=== PATIENT | male | born 1945 | race Caucasian/White ===

== ENCOUNTER 2022-08-21 04:30 | Outpatient (OUT) | payer MEDICARE, SELFPAY ==
[2022-08-21 14:15] LABS: Prostate Specific Antigen Dx 1.43 ng/mL (<=4.00)
== END 2022-08-21 23:59 | disposition home or self-care (01) ==
LOC: LAB 08-31 12:31
PROVIDERS: PCP Internal Medicine; Visit Provider Urology
DX: N40.0 Benign prostatic hyperplasia without lower urinary tract symptoms (principal)
CPT/HCPCS: 36415; 84153

== ENCOUNTER 2022-09-15 07:08 | Outpatient (OUT) | payer MEDICARE, SELFPAY ==
--- NOTE | 2022-09-15 07:40 | MR_ITS ---
The [address] [address] Patient Name: YANELIS WANG MRN: [facility]:[id number] date: 1945 Sex: M Assigned Patient Location: MRI Current Patient Location: Accession/Order Number: [id number] Exam Date: 09/15/2022 07:40 Report Date: 09/18/2022 08:11 At the request of: SUSHMA BRANNON Procedure: MR angio head wo con EXAMINATION: MR angio head wo con HISTORY: History of Stroke Z86.73, Bilateral Blurred Vision H53.8 COMPARISON: No relevant comparison available. TECHNIQUE: A variety of imaging planes and parameters were utilized for visualization of suspected pathology. Images were performed without contrast. FINDINGS: CEREBRUM: 1.5 cm area of increased T2 signal within the watershed area of the right middle cerebral and posterior cerebral arteries which does not demonstrate increased signal on the diffusion sequence, which favors subacute to early remote infarction. A few small foci of increased T2 signal within the deep white matter favoring chronic small vessel ischemic changes. Mild, symmetric parenchymal atrophy consistent with age. No hemorrhage, mass, or mass effect. CEREBELLUM: 2 small areas likely representing encephalomalacic changes from remote infarctions within the posterior lateral left cerebellum. BRAINSTEM: No edema, hemorrhage, mass, acute infarction, or inappropriate atrophy. CSF SPACES: Ventricles, cisterns, and sulci are appropriate for age. No hydrocephalus, subarachnoid hemorrhage, or mass. SKULL: No mass or other significant visible lesion. SINUSES: Moderate mucosal thickening within the paranasal sinuses. No fluid levels. ORBITS: Limited views are unremarkable. INTERNAL CAROTIDS: No visible stenosis or aneurysm. ANTERIOR CEREBRALS: No visible stenosis or aneurysm. MIDDLE CEREBRALS: No visible stenosis or aneurysm. POSTERIOR CEREBRALS: No visible stenosis or aneurysm. BASILAR: No visible stenosis or aneurysm. Basilar artery is fed by the right vertebral artery. VERTEBRALS: Diminutive left vertebral artery which does not visibly connect to the basilar artery. OTHER: Negative with no evidence of a vascular malformation. MR/MR angio head wo con IMPRESSION: 1. Small area within posterior right watershed area between the middle and posterior cerebral arteries suspected to represent subacute ischemia. 2. Two small areas within left cerebellum suspected to represent encephalomalacic changes from remote infarctions. 3. Mild age consistent atrophy and chronic small vessel ischemic changes. 4. No appreciable abnormality of the anterior, middle, posterior circulation. Note is made that the basilar artery is fed entirely by the right vertebral artery. Electronically authenticated by: JAROD MAKI Date: 09/18/2022 08:11
== END 2022-09-15 07:09 | disposition home or self-care (01) ==
LOC: MRI 07:08
PROVIDERS: PCP Internal Medicine; Visit Provider Internal Medicine
DX: R51.9 Headache, unspecified (principal); H53.8 Other visual disturbances; Z86.73 Personal history of transient ischemic attack (TIA), and cerebral infarction without residual deficits
CPT/HCPCS: 70544

== ENCOUNTER 2022-09-28 13:04 | Outpatient (OUT) | payer MEDICARE, SELFPAY ==
--- NOTE | 2022-09-28 14:26 | CA_ITS ---
Patient: YANELIS WANG Exam Date: 09/28/2022 : 1945 Gender:M Ordering : DR Blu Humphrey D.O. Admission #: [id number] Family : Order #: [id number] CLICK HERE TO VIEW EXAM ECHOCARDIOGRAM REPORT PROCEDURE: CA ECHO DOPPLER COMPLETE INDICATIONS: CVA COMPARISON: None. DESCRIPTION: COMPLETE ECHOCARDIOGRAM Real-time transthoracic echocardiography with 2D, M-mode, spectral and color flow Doppler performed. QUALITY: Technical quality was good. BSA 1.93 LEFT VENTRICLE: Normal chamber size. Normal left ventricular wall thickness. Global left ventricular systolic function is normal. LV EF: Estimated left ventricular ejection fraction is 65% DIASTOLIC: Diastolic function is indeterminate. ATRIAL SEPTUM: Aneurysmal atrial septum. Doppler studies reveal an intra-cardiac shunt. Left to right shunt. LEFT ATRIUM: Normal chamber size. RIGHT ATRIUM: Mild dilatation. RIGHT VENTRICLE: Mild dilatation. Normal right ventricular systolic function. TRICUSPID VALVE: Normal mobility and thickness. No stenosis with mild regurgitation. Mild pulmonary hypertension. RVSP 39 mmHg MITRAL VALVE: Normal mobility and thickness. No evidence of mitral valve stenosis. Mild mitral annular calcification. Mild mitral regurgitation. AORTIC VALVE: Normal trileaflet appearance. Mildly calcified aortic valve. Normal leaflet mobility. No evidence of aortic valve stenosis. Trivial aortic regurgitation. AORTIC ROOT: Normal diameter and appearance. PULMONIC VALVE: Normal thickness and mobility. No stenosis. Trivial regurgitation. PERICARDIUM: No evidence of pericardial effusion. IVC: Collapses with inspirations. Normal size. PLEURA: CONCLUSION: 1. Normal left regular systolic function. LVEF is estimated at 65%. 2. Mildly dilated right ventricle with normal systolic function. 3. Mild right atrial dilatation. 4. Mild tricuspid regurgitation. 5. Mildly elevated right-sided pressures. RVSP is 39 mmHg. 6. Aneurysmal interatrial septum with evidence of [id number] shunting by color Doppler suggestive of possible atrial septal defect. A transesophageal echocardiogram is recommended for better assessment. Adult Echocardiography Procedure Report Left Ventricle LVEDD (3.7 - 5.6 cm): 4.36 cm LVESD (2.2 - 4.0 cm): 2.69 cm LVIVS thickness (0.6 - 1.2 cm): 1.02 cm LVPW thickness (0.5 - 1.0 cm): 0.92 cm e': 0.10 m/s E - e': 5.66 LVOT Max Gradient: 3.53 mm[Hg] LVOT Area (cm2): 0.94 m/s Peak Velocity (LVOT): 0.94 m/s Mean Velocity (LVOT): 0.59 m/s LVOT Diameter 2.20 cm Left Ventricular Ejection Fraction: 65% Left Atrium LA Volume Index (2D A2C): 35.51 ml/m2 Left Atrium Systolic Dimension: 3.72 cm Mitral Valve MV E to A Ratio: 0.70 Mitral Valve A-Wave Peak Velocity: 0.79 m/s Mitral Valve E-Wave Peak Velocity: 0.55 m/s Right Ventricle RV Internal Diastolic Dimension: 4.17 cm Aorta AO Root Diam: 3.66 cm Ascending Ao Diam: 3.13 cm Aortic Valve AoV Area (Peak Roberto): 1.90 cm2, 1.90 cm2 AoV Area (VTI): 1.80 cm2, 1.80 cm2 Peak Velocity(Antegrade Flow): 1.87 m/s Peak Gradient(Antegrade Flow): 14.01 mm[Hg] Mean Velocity(Antegrade Flow): 1.26 m/s Mean Gradient(Antegrade Flow): 7.36 mm[Hg] Velocity Time Integral: 48.49 cm Tricuspid Valve Peak Velocity (Regurgitant Flow): 2.54 m/s, 2.64 m/s, 3.00 m/s Pulmonic Valve Mean Gradient: 2.32 mm[Hg], 2.36 mm[Hg], 2.46 mm[Hg] Mean Velocity: 0.71 m/s, 0.72 m/s, 0.73 m/s Peak Velocity: 1.13 m/s Peak Gradient: 5.09 mm[Hg], 5.09 mm[Hg], 5.08 mm[Hg] Right Atrium Right Atrium Systolic Pressure: 74.92 ml, 74.92 ml Dictated by: Geovanny Iverson M.D. on 09/28/2022 at 17:21 Approved by: Geovanny Iverson M.D. on 09/28/2022 at 17:26
== END 2022-09-28 13:05 | disposition home or self-care (01) ==
LOC: CARD 13:04
PROVIDERS: PCP Internal Medicine; Visit Provider Internal Medicine
DX: I63.419 Cerebral infarction due to embolism of unspecified middle cerebral artery (principal); I07.1 Rheumatic tricuspid insufficiency
CPT/HCPCS: 93306

== ENCOUNTER 2022-11-01 10:29 | Outpatient (OUT) | payer MEDICARE, SELFPAY ==
--- NOTE | 2022-11-01 10:32 | US_ITS ---
[address] [address] Patient Name: YANELIS WANG MRN: [id number] date: 1945 Sex: M Assigned Patient Location: US Current Patient Location: US Accession/Order Number: [id number] Exam Date: 11/01/2022 10:40 Report Date: 11/01/2022 16:47 At the request of: SUSHMA BRANNON Procedure: US carotid duplex BI EXAMINATION: US carotid duplex BI HISTORY: Cerebral infarction I63.10 COMPARISON: No relevant comparison available. TECHNIQUE: Duplex Doppler ultrasound analysis of carotid and vertebral arteries. . Bilateral carotid arterial duplex examination was performed using B-mode, color flow and spectral analysis. Carotid stenosis is reported according to validated velocity parameters, similar to NASCET criteria. FINDINGS: RIGHT CAROTID ARTERY Moderate atherosclerotic plaque. 59% area reduction in the carotid bulb Subclavian: PSV: 132.5 cm/s cm/s EDV: 0.0 cm/s cm/s CCA: Prox: PSV: 83.1 cm/s cm/s EDV: 14.2 cm/s cm/s Mid: PSV: 67.3 cm/s cm/s EDV: 16.1 cm/s cm/s Distal: PSV: 73.2 cm/s cm/s EDV: 16.1 cm/s cm/s BULB: PSV: 57.5 cm/s cm/s EDV: 16.1 cm/s cm/s ICA: Prox: PSV: 90.9 cm/s cm/s EDV: 28.0 cm/s cm/s Mid: PSV: 110.6 cm/s cm/s EDV: 33.9 cm/s cm/s Distal: PSV: 81.1 cm/s cm/s EDV: 24.0 cm/s cm/s ECA: PSV: 108.6 cm/s cm/s EDV: 10.2 cm/s cm/s VERTEBRAL: PSV: 83.0 cm/s cm/s EDV: 22.0 cm/s cm/s, antegrade ICA/CCA ratio: PSV: 1.3 EDV: 2.4 LEFT CAROTID ARTERY moderate atherosclerotic plaque, 37% area reduction in the carotid bulb Subclavian: PSV: 134.4 cm/s cm/s EDV: 0.0 cm/s CCA: Prox: PSV: 128.7 cm/s cm/s EDV: 22.9 cm/s Mid: PSV: 100.8 cm/s cm/s EDV: 20.1 cm/s Distal: PSV: 89.1 cm/s cm/s EDV: 18.1 cm/s BULB: PSV: 81.2 cm/s cm/s EDV: 26.0 cm/s ICA: Prox: PSV: 93.0 cm/s cm/s EDV: 20.1 cm/s Mid: PSV: 83.1 cm/s cm/s EDV: 18.1 cm/s Distal: PSV: 53.6 cm/s cm/s EDV: 16.1 cm/s ECA: PSV: 92.9 cm/s cm/s EDV: 12.2 cm/s VERTEBRAL: PSV: 28.1 cm/s cm/s EDV: 6.3 cm/s , antegrade ICA/CCA ratio: PSV: 0.7 EDV: 0.9 US/US carotid duplex BI IMPRESSION: 0-49% flow stenosis bilateral internal carotid arteries Spectral Doppler US Thresholds (Reference: Herminio EG, et al. Radiology 2000; 214:247-252) Stenosis (%) PSV (cm/sec) VICA/VCCA 0-49 <150 <2.5 50-69 150-225 2.5-4.0 >70 >225 >4.0 Electronically authenticated by: ALTON AGUILAR Date: 11/01/2022 16:47
== END 2022-11-01 10:30 | disposition home or self-care (01) ==
LOC: US 10:29
PROVIDERS: PCP Internal Medicine; Visit Provider Internal Medicine
DX: I63.10 Cerebral infarction due to embolism of unspecified precerebral artery (principal)
CPT/HCPCS: 93880

== ENCOUNTER 2023-01-30 14:57 | Outpatient (OUT) | payer MEDICARE, SELFPAY ==
[2023-01-30 15:30] LABS: Basophils Absolute Auto 0.1 10^3/uL (0.0-0.1); Basophils Percent Auto 0.9 % (0.2-2.0); Eosinophils Absolute Auto 0.5 10^3/uL (0.0-0.7); Eosinophils Percent Auto 10.1 % (0.9-7.0); Hematocrit 39.2 % (42.0-54.0); Hemoglobin 13.4 g/dL (14.0-18.0); Immature Granulocytes Abs Auto 0.01 10^3/uL (0.00-0.03); Immature Granulocytes Pct Auto 0.2 % (0.0-0.5); Lymphocytes Absolute Auto 1.7 10^3/uL (1.2-3.8); Lymphocytes Percent Auto 31.7 % (20.5-60.0); Mean Corpuscular HGB Conc 34.2 g/dL (29.9-35.2); Mean Corpuscular Hemoglobin 32.6 pg (25.9-34.0); Mean Corpuscular Volume 95.4 fL (80.0-94.0); Mean Platelet Volume 10.6 fL (9.5-13.5); Monocytes Absolute Auto 0.5 10^3/uL (0.3-0.8); Monocytes Percent Auto 8.5 % (1.7-12.0); Neutrophils Absolute Auto 2.6 10^3/uL (1.4-6.5); Neutrophils Percent Auto 48.6 % (43.0-75.0); Platelet Count 129 10^3/uL (150-450); Red Blood Count 4.11 10^6/uL (4.70-6.10); Red Cell Distribution Width 12.3 % (11.0-15.0); White Blood Count 5.3 10^3/uL (4.0-11.0)
[2023-01-30 15:38] LABS: Alanine Aminotransferase 18 U/L (16-63); Anion Gap 10.8; Calcium 8.8 mg/dL (8.5-10.1); Carbon Dioxide 30.6 mmol/L (21.0-32.0); Chloride 105 mmol/L (98-107); Chol HDL Ratio 3.4; Cholesterol 178 mg/dL (<=200); Estimated GFR (African America >60 (>=60); Estimated GFR (Non-African Ame >60 (>=60); Glucose 151 mg/dL (74-106); HDL Cholesterol 53 mg/dL (40-60); Potassium 4.4 mmol/L (3.5-5.1); Sodium 142 mmol/L (136-145); Triglycerides 174 mg/dL (<=150); VLDL CHOLESTEROL 34.8 mg/dL
[2023-01-30 15:52] LABS: Prostate Specific Antigen Scrn 0.74 ng/mL (<=4.00)
== END 2023-01-30 14:58 | disposition home or self-care (01) ==
LOC: LAB 14:57
PROVIDERS: PCP Internal Medicine; Visit Provider Internal Medicine
DX: Z79.899 Other long term (current) drug therapy (principal); E78.00 Pure hypercholesterolemia, unspecified; I10 Essential (primary) hypertension; Z12.5 Encounter for screening for malignant neoplasm of prostate
CPT/HCPCS: 36415; 80048; 80061; 84460; 85025; G0103

== ENCOUNTER 2023-05-10 11:59 | Outpatient (OUT) | payer MEDICARE, SELFPAY ==
--- NOTE | 2023-05-10 12:10 | XR_ITS ---
The [address] [address] Patient Name: YANELIS WANG MRN: [id number] date: 1945 Sex: M Assigned Patient Location: LAB Current Patient Location: LAB Accession/Order Number: [id number] Exam Date: 05/10/2023 12:15 Report Date: 05/10/2023 13:07 At the request of: SUSHMA BRANNON Procedure: XR chest 2V EXAM: XR chest 2V HISTORY: cough R05.9 COMPARISON: None. TECHNIQUE: PA and lateral views of the chest. FINDINGS: The cardiomediastinal silhouette is normal. No focal consolidation is identified. There is no pneumothorax. No pleural effusion is noted. The osseous structures are intact. XR/XR chest 2V IMPRESSION: No acute cardiopulmonary process. Electronically authenticated by: RAMOS RITCHIE Date: 05/10/2023 13:07
[2023-05-10 12:23] LABS: Basophils Percent Auto 0.6 % (0.2-2.0); Eosinophils Absolute Auto 0.7 10^3/uL (0.0-0.7); Eosinophils Percent Auto 13.4 % (0.9-7.0); Hematocrit 38.4 % (42.0-54.0); Hemoglobin 12.7 g/dL (14.0-18.0); Immature Granulocytes Abs Auto 0.01 10^3/uL (0.00-0.03); Immature Granulocytes Pct Auto 0.2 % (0.0-0.5); Lymphocytes Absolute Auto 1.3 10^3/uL (1.2-3.8); Lymphocytes Percent Auto 24.3 % (20.5-60.0); Mean Corpuscular HGB Conc 33.1 g/dL (29.9-35.2); Mean Corpuscular Hemoglobin 32.2 pg (25.9-34.0); Mean Corpuscular Volume 97.5 fL (80.0-94.0); Mean Platelet Volume 10.6 fL (9.5-13.5); Monocytes Absolute Auto 0.7 10^3/uL (0.3-0.8); Monocytes Percent Auto 12.5 % (1.7-12.0); Neutrophils Absolute Auto 2.7 10^3/uL (1.4-6.5); Platelet Count 121 10^3/uL (150-450); Red Blood Count 3.94 10^6/uL (4.70-6.10); Red Cell Distribution Width 12.3 % (11.0-15.0); White Blood Count 5.4 10^3/uL (4.0-11.0)
== END 2023-05-10 12:00 | disposition home or self-care (01) ==
LOC: LAB 11:59
PROVIDERS: PCP Internal Medicine; Visit Provider Internal Medicine
DX: R05.9 Cough, unspecified (principal)
CPT/HCPCS: 36415; 71046; 85025

== ENCOUNTER 2024-02-09 07:32 | Outpatient (OUT) | payer MEDICARE, SELFPAY ==
--- OUTSIDE RECORDS SUMMARY | 2024-02-09 07:34 | XMS_ITS | CCD ---
Author Organization [facility] Care Team Providers Care Manager Garden Name Role Phone CURT CHOWDHURY Unavailable Unavailable BLU VELEZ Unavailable Unavailable Blu Velez DO Primary Care Provider BLU VELEZ Primary Care Unavailable ELISA FERRARO Referring Unavailable ARDEN MAHARAJ Attending Unavailable ARDEN MAHARAJ Admitting Unavailable MARIBEL HERNANDEZ Referring Unavailable BLU VELEZ Primary Care Unavailable ELISA FERRARO Consulting Unavailable ANIVAL TRUJILLO Consulting Unavailable ELISA FERRARO Admitting Unavailable BLU VELEZ Primary Care Unavailable THEO CABELLO Consulting Unavailable ELISA FERRARO Attending Unavailable UZAIR LAWSON Consulting Unavailable FAWWAD, ASHTON H Admitting Unavailable FAWTAMARA, ASHTON H Attending Unavailable BALL, DR ORDAZ Primary Care Unavailable FAWWAD, ASHTON H Admitting Unavailable FAWWAD, ASHTON H Attending Unavailable BALL, DR ORDAZ Primary Care Unavailable FAWWAToo, ASHTON H Admitting Unavailable FAWWAD, ASHTON H Attending Unavailable BALL, DR ORDAZ Primary Care Unavailable SEAN AVILA Admitting Unavailable SEAN AVILA Attending Unavailable LCOVIS, DR ORDAZ Primary Care Unavailable CL VARNER, DR JULIANA [place] Admitting Unavailabl e CL VARNER, DR JULIANA [place] Attending Unavailabl e CLOVIS, DR ORDAZ Primary Care Unavailable CL VARNER, DR JULIANA [place] Consulting Unavailabl e CLOVIS, DR ORDAZ Admitting Unavailable CLOVIS, DR ORDAZ Attending Unavailable CLOVIS, DR ORDAZ Primary Care Unavailable CLOVIS, DR ORDAZ Consulting Unavailable CLOVIS, DR ORDAZ Admitting Unavailable CLOVIS, DR ORDAZ Attending Unavailable CLOVIS, DR ORDAZ Primary Care Unavailable CLOVIS, DR ORDAZ Consulting Unavailable BLU VELEZ Primary Care Physician [phone] Clarisa Ibarra Attending Unavailable Clarisa Ibarra Attending Unavailable Blu Velez Unavailable Blu Velez Unavailable Unavailable Unavailable Teo Johnson Attending Unavailable Dr. Blu Velez Primary Care Angelia Velez, Dr. Blu Torres Referring Blu Cottrell DO Primary Care Provider Blu Velez DO Primary Care Provider U navailable TEO JOHNSON Attending Unavailable BLU VELEZ Primary Care Unavailable DO Blu Velez Primary Care Provider [phone] MD Yogesh Jacob II Attending Provider Yogesh Jacob II Admitting UnavailYogesh Reyes II Attending Unavailabl Blu Méndez Primary Care Unavailable BLU VELEZ Primary Care Unavailable TEO JOHNSON Referring Blu Camp MD Primary Care Provider ASHUTOSH MILLER Attending Unavailable ASHUTOSH MILLER Attending Unavailable ASHUTOSH MILLER Attending Unavailable ASHUTOSH MILLER Attending Unavailable ASHUTOSH MILLER Attending Unavailable Allergies Allergy Classification Reported Allergen(s) Allergy Type Date of Onset Reaction(s) Facility Sulfamethoxazole / Trimethoprim (3 sources) Sulfamethoxazole / Trimethoprim Drug Allergy 021 [facility] Unclassified (5 sources) Iodides; Translations: [IODIDES] Propensity to adverse reactions to drug 021 Hives, Itching [facility] (10 sources) Contrast media; Translations: [CONTRAST DYE] Propensity to adverse reactions to drug (disorder) 011 AOF, Unknown [facility] Repository (5 sources) sulfamethoxazole / trimethoprim; Translations: [SULFAMETHOXAZOLE-T RIMETHOPRIM] Drug Allergy 016 AOF, Rash [facility] Repository (1 source) Iodine (And Iodine Containting Drugs) Drug allergy (disorder) 014 [facility] Repository (1 source) Sulfamethoxazole / Trimethoprim Drug Allergy 015 [facility] Rep[facility] (10 sources) Sulfamethoxazole / Trimethoprim Drug Allergy 015 Unknown [facility] (20 sources) Iodine; Translations: [iodine] Drug Allergy 024 Unknown (qualifier value), Unknown [facility] (2 sources) Sulfonamides (Antibiotic); Translations: [sulfa drugs] Drug allergy Unknown (qualifier value) [facility] (11 sources) Sulfamethoxazole / Trimethoprim; Translations: [Bactrim] Drug Allergy Unknown, Rash [facility] Other (16 sources) Simvastatin Drug Allergy 024 Unknown, Unknown Reaction [facility] (8 sources) Allergies Reconciled Propensity to adverse reactions Unknown [facility] Other (10 sources) Iodinated contrast media (substance) Drug allergy 011 Hives, Itching [facility] (10 sources) Substance with sulfonamide structure and antibacterial mechanism of action (substance) Drug allergy 024 Hives, Unknown [facility] Other (8 sources) Septra *ANTI-INFECTIVE AGENTS - MISC.* Propensity to adverse reactions Unknown [facility] Other (8 sources) Sulf-10 Drug allergy 014 Unknown [facility] Other (8 sources) patient allergy list reviewed by nurse or physicia Propensity to adverse reactions 014 Comment:Done [facility] Other (2 sources) Contrast media Allergy to substance (finding) Rash [facility] 250 DO Work Phone: (9 sources) Sulfamethoxazole; Translations: [SULFAMETHOXAZOLE] Drug Allergy 024 Unknown Reaction [facility] Repository (11 sources) IODINATED CONTRAST MEDIA; Translations: [IODINATED CONTRAST MEDIA] Propensity to adverse reactions to drug (disorder) 011 Unknown Reaction [facility] 3 Repository (9 sources) Sulfonamides (Antibiotic); Translations: [Sulfa (Sulfonamide Antibiotics)] Allergy to substance 024 Unknown Reaction [facility] (9 sources) Trimethoprim; Translations: [trimethoprim] Drug Allergy 024 Unknown Reaction [facility] (1 source) Iodine Drug Allergy 024 [facility] Rep[facility] (1 source) Simvastatin Drug Allergy 024 [facility] Repository Medications Current Medications Medication Drug Class(es) Dates Sig (Normalized) Sig (Original) Acetaminophen (3 sources) Start: 08-21-2020 acetaminophen (TYLENOL) tablet 650 mg Start: 08-09-2020 take 650 mg by mouth every six hours, then take 4000 mg by mouth every twenty-four hours 650 mg, Oral, EVERY 6 HOURS, First dose on Sun08/09/20 at 2200 Maximum dose of acetaminophen is 4000 mg from all sources in 24 hours. Post-op Start: 08-09-2020 End: 08-09-2020 acetaminophen (TYLENOL) tabl et 1,000 mg acetaminophen 325 mg / oxyCODONE hydrochloride 5 mg oral tablet (3 sources) Opioid Agonist Start: 08-22-2020 End: 08-29-2020 take 1 tablet by mouth every four hours as needed for pain oxyCODONE-acetaminophen (PERCOCET) 5-325 MG per tablet Indications: S/P total knee arthroplasty, right Take 1 tablet by mouth every 4 hours as needed for Pain for up to 7 days. 42 tablet 0 08/22/2020 08/22/2020 Discontinued Start: 08-21-2020 oxyCODONE-acet aminophen (PERCOCET) 5-325 MG per tablet 1 tablet acyclovir 0.05 mg/mg topical ointment (5 sources) Herpesvirus Nucleoside Analog DNA Polymerase Inhibitor, Herpes Simplex Virus Nucleoside Analog DNA Polymerase Inhibitor, Herpes Zoster Virus Nucleoside Analog DNA Polymerase Inhibitor Start: 08-10-2023 Acyclovir Active 1 APPLIC TOPICAL Six times daily 15 August 10, 2023 12:00am albuterol 0.83 mg/ml inhalation solution (20 sources) beta2-Adrenergic Agonist Start: 05-03-2023 take 2 puff(s) by mouth every six hours as needed for cough and wheezing Albuterol Sulfate Active 0 .ROUTE .COMPLEX 8.5 May 03, 2023 9:50am INHALE 2 PUFFS BY MOUTH EVERY 6 HOURS NEEDED FOR COUGH AND WHEEZING Start: 04-19-2023 End: 05-10-2023 take 2.5 mg by inhalation every six hours Albuterol Sulfate Discontinued 2.5 MG INHALATION Every 6 hours 75 30 April 19, 2023 3:32pm May 10, 2023 9:15am Start: 04-11-2023 End: 05-03-2023 take 1 puff(s) by inhalation every six hours Albuterol Sulfate Discontinued 2 PUFF INHALATION Every 6 hours 8.5 April 11, 2023 1:00am May 03, 2023 9:50am amLODIPine 5 mg oral tablet (20 sources) Dihydropyridine Calcium Channel Nuha Start: 02-09-2023 take 1 tablet by mouth once daily Amlodipine Active 1 TAB PO Daily April 11, 2023 1:00am FreeTextSi tablet Orally Once a day; Note: Source Status: Continue; Provider: Clovis Hylton Start: 2022 take 1 tablet by gina th every twenty-four hours amLODIPine Besylate 5 MG 1 tablet Orally Once a day for 90 days Feb, Active ascorbic acid 1000 mg oral tablet (7 sources) Vitamin C take 1 tablet by gina th in the morning Ascorbic Acid (vitamin C) 1000 MG tablet Take 1,000 mg by mouth in the morning. Active Vitamin C ER 100 0 MG TBCR TAKE 1 TABLET DAILY. Quantity: 0 Refills: 0 Ordered: 09-Nov-2022 DO Active aspirin 81 mg delayed release oral tablet (11 sources) Platelet Aggregation Inhibitor, Nonsteroidal Anti-inflammatory Drug Start: 04-11-2023 take 81 mg by mouth once daily Aspirin Active 81 MG PO Daily April 11, 2023 1:00am atorvastatin 10 mg oral tablet (20 sources) HMG-CoA Reductase Inhibitor Start: 11-02-2023 take 10 mg by mouth once daily in the evening Atorvastatin Active 10 MG PO Every evening 90 November 02, 2023 4:27pm Start: 08-04-2023 End: 11-02-2023 Atorvastatin Discontinued 0 .ROUTE .COMPLEX 90 August 04, 2023 12:52pm November 02, 2023 4:28pm TAKE 1 TABLET EVERY EVENING Start: 04-11-2023 End: 08-04-2023 take 10 mg by mouth once daily Atorvastatin Discontinu ed 10 MG PO Daily April 11, 2023 1:00am August 04, 2023 12:52pm Start: 10-24-2018 atorvastatin O ral, Daily, Refills(s) 0 Start Date: 10/24/18 Status: Ordered benazepril hydrochloride 20 mg oral tablet (20 sources) Angiotensin Converting Enzyme Inhibitor Start: 04-11-2023 take 1 tablet by mouth once daily Benazepril Active 1 TAB PO Daily April 11, 2023 1:00am FreeTextSi tablet Orally Once a day; Note: Source Status: Continue; Provider: Clovis Hylton Start: 10-24-2018 benazepril Ora l, Daily, Refills(s) 0 Start Date: 10/24/18 Status: Ordered docusate sodium 100 mg oral capsule (1 source) Start: 08-10-2020 docusate sodiu m (COLACE) capsule 100 mg doxycycline hyclate 100 mg oral capsule (9 sources) Tetracycline- class Drug Start: 11-20-2023 take 100 mg by mouth twice daily Doxycycline Hyclate Active 100 MG PO Twice daily 08 09November 20, 2023 12:00am Start: 04-11-2023 End: 04-19-2023 take 100 mg by mouth twice daily Doxycycline Hyclate Discontinued 100 MG PO Twice daily April 11, 2023 1:00am April 19, 2023 11:14am 0.8 ml enoxaparin sodium 100 mg/ml prefilled syringe (3 sources) Low Molecular Weight Heparin Start: 08-10-2020 End: 08-17-2020 enoxaparin (LOVENOX) 80 MG/0.8ML injection Inject 0.8 mLs into the skin 2 times daily for 7 days 11.2 mL 0 08/10/2020 08/17/2020 Active Start: 08-10-2020 End: 08-10-2020 enoxaparin (LOVENOX) injecti on 40 mg End: 08-09-2020 enoxaparin (LOVENOX) 80 MG/0 .8ML injection Inject 80 mg into the skin 2 times daily 0 08/09/2020 Discontinued (Stop Taking at Discharge) fluocinonide 0.5 mg/ml topical cream (3 sources) Corticosteroid fluocinonide (LI DEX) 0.05 % cream Apply topically as needed (for occasional rash on lower legs) Uses very rarely 0 Active Fluticasone Propion-Salmeterol (11 sources) Corticosteroid, beta2-Adrenergic Agonist Start: 07-17-2023 Fluticasone Propion-Salmeterol (Wixela Inhub) 250-50 mcg/dose blister with device Active 1 INH INHALATION Twice daily July 17, 2023 12:00am Start: 05-10-2023 End: 07-17-2023 take 1 puff(s) by inhalation every twelve hours Fluticasone Propion-Salmeterol (Advair Hfa) 45-21 mcg/actuation HFA aerosol inhaler Discontinued 2 PUFF INHALATION Every 12 hours 02 24May 10, 2023 12:00am July 17, 2023 11:10am administer with spacer Start: 05-10-2023 take 1 puff(s) by in halation every twelve hours Fluticasone Propion-Salmeterol (Advair Hfa) 45-21 mcg/actuation HFA aerosol inhaler Active 2 PUFF INHALATION Every 12 hours 02 24May 10, 2023 12:00am administer with spacer hydroCHLOROthiazide 12.5 mg oral tablet (20 sources) Thiazide Diuretic Start: 08-30-2022 take 1 mg by mouth once daily hydrochlorothiazide 12.5 mg Cap mg cap(s), Oral, Daily Start Date: 08/30/22 Status: Ordered Start: 03-01-2022 take 1 tablet by gina th once daily in the morning Hydrochlorothiazide Active 1 TAB PO Daily April 11, 2023 1:00am FreeTextSi tablet in the morning Orally Once a day; Note: Source Status: Continue; Provider: Clovis Hylton HYDROmorphone (DILAUDID) injection 0.25 mg (1 source) Start: 08-21-2020 HYDROmorphone (DILAUDID) injection 0.25 mg 100 ml magnesium sulfate 10 mg/ml injection (1 source) Start: 08-21-2020 magnesium sulf ate 1000 mg in dextrose 5% 100 mL IVPB morphine (PF) injection 2 mg (1 source) Start: 08-09-2020 morphine (PF) injection 2 mg ondansetron (ZOFRAN-ODT) disintegrating tablet 4 mg (1 source) Start: 08-21-2020 ondansetron (Z OFRAN-ODT) disintegrating tablet 4 mg oxyCODONE (1 source) Opioid Agonist Start: 08-09-2020 oxyCODONE (NELSON ICODONE) immediate release tablet 5 mg polyethylene glycol 3350 07535 mg powder for oral solution (1 source) Osmotic Laxative Start: 08-21-2020 polyethylene glycol (GLYCOLAX) packet 17 g Potassium Chloride (1 source) Start: 08-21-2020 potassium chlo ride (KLOR-CON M) extended release tablet 40 mEq Promethazine (1 source) Phenothiazine Start: 08-09-2020 promethazine ( PHENERGAN) tablet 12.5 mg triamcinolone acetonide 5 mg/ml topical cream (11 sources) Corticosteroid Start: 11-20-2023 Triamcinolone Acetonide Active 1 APPLIC TOPICAL Twice daily November 20, 2023 12:00am Start: 2017 Kenalog -40 mg 16 Dec, 2016 40 mg warfarin sodium 2 mg oral tablet (5 sources) Vitamin K Antagonist Start: 08-09-2020 End: 08-22-2020 warfarin (COUMADIN) tablet 2 mg End: 08-22-2020 take 2 tablets by mouth three times weekly warfarin (COUMADIN) 2 MG tablet Take 4 mg by mouth three times a week Takes 4 mg (2 tablets) on Sunday, Sunday & Sunday 0 08/22/2020 Discontinued (Stop Taking at Discharge) warfarin (COUMADIN) daily do sing (placeholder) (1 source) Start: 08-09-2020 warfarin (COUM JASWINDER) daily dosing (placeholder) Completed/Discontinued Medications Medication Drug Class(es) Dates Sig (Normalized) Sig (Original) apixaban 2.5 mg oral tablet (20 sources) Factor Xa Inhibitor Start: 04-11-2023 End: 11-20-2023 take 1 mg by mouth twice daily Apixaban Discontinued MG PO Twice daily April 11, 2023 1:00am November 20, 2023 1:51pm FreeTextSig: as directed Orally Twice a day; Note: Source Status: Continue; Provider: Clovis Hylton Start: 12-02-2020 take 1 tablet by gina th twice daily Apixaban (Eliquis) 2.5 mg tablet Active 2.5 MG PO Twice daily September 12, 2023 12:00am Start: 08-22-2020 End: 09-21-2020 take 1 tablet by mouth twice daily apixaban (ELIQUIS) 5 MG TABS tablet Take 1 tablet by mouth 2 times daily 60 tablet 0 08/22/2020 08/22/2020 Discontinued (REORDER) azithromycin 250 mg oral tablet (6 sources) Macrolide Antimicrobial Start: 05-10-2023 End: 11-20-2023 Azithromycin Discontinued 250 MG PO As Directed 6 May 10, 2023 12:00am November 20, 2023 1:51pm Rap-Oad-Mnya 333-133-5 MG TABS (2 sources) Qwl-Jbh-[id number] 333-133-5 MG TABS TAKE 1 TABLET DAILY. Quantity: 0 Refills: 0 Ordered: 09-Nov-2022 DO Active calcium chloride 0.0014 meq/ml / potassium chloride 0.004 meq/ml / sodium chloride 0.103 meq/ml / sodium lactate 0.028 meq/ml injectable solution (2 sources) Start: 08-09-2020 End: 08-10-2020 Intravenous, at 125 mL/hr, CONTINUOUS, Starting on Sun08/09/20 at 2130, Post-op Start: 08-09-2020 lactated ringe rs infusion cholecalciferol 0.025 mg ora l capsule (2 sources) Vitamin D Vitamin D-3 25 M CG (1000 UT) Oral Capsule TAKE DIRECTED. Quantity: 0 Refills: 0 Ordered: 09-Nov-2022 DO Active 2 ml fentaNYL 0.05 mg/ml injection (2 sources) Opioid Agonist Start: 08-09-2020 End: 08-09-2020 fentaNYL (SUBLIMAZE) injection 50 mcg Start: 08-09-2020 End: 08-09-2020 fentaNYL (SUBLIMAZE) injecti on 25 mcg gabapentin 300 mg oral capsule (1 source) Anti-epileptic Agent Start: 08-09-2020 End: 08-09-2020 gabapentin (NEURONTIN) capsule 300 mg levoFLOXacin 750 mg oral tablet (6 sources) Quinolone Antimicrobial Start: 04-19-2023 End: 05-10-2023 take 750 mg by mouth once daily Levofloxacin Discontinued 750 MG PO Daily 5 April 19, 2023 1:00am May 10, 2023 8:37am mineral oil 0.15 mg/mg / petrolatum 0.83 mg/mg ophthalmic ointment (1 source) Start: 08-09-2020 End: 08-10-2020 lubrifresh P.M. (artificial tears) ophthalmic ointment predniSONE 20 mg oral tablet (17 sources) Start: 05-10-2023 End: 05-10-2023 Prednisone Discontinued 20 MG PO Twice daily 11 30May 10, 2023 12:00am May 10, 2023 12:39pm 1 tab tid w/ food x 3 days, then bid w/ food x 3 days, then qd w/ food x 3 days Start: 04-19-2023 End: 11-20-2023 take 20 mg by mouth twice daily Prednisone Discontinued 20 MG PO Twice daily 11 30May 10, 2023 12:38pm November 20, 2023 1:52pm 1000 ml sodium chloride 9 mg /ml injection (7 sources) Start: 08-21-2020 sodium chlorid e flush 0.9 % injection 5-40 mL Start: 08-21-2020 End: 08-21-2020 0.9 % sodium chloride infusi on Start: 08-09-2020 take 1 dose intraven ously twice daily 5-40 mL, Intravenous, EVERY 12 HOURS SCHEDULED (2 times per day), First dose on Sun08/09/20 at 2130 For Line Patency: Peripheral IV = 5 mL; Midline or Central Line = 10 mL/lumen. If following IV push medication, administer flush at same rate as the IV push. Flush volume is determined by type of infusion therapy being given. For non-viscous solutions use: Peripheral IV = 5 mL Midline or Central Line = 10 mL/lumen For viscous solutions (i.e. blood components, parenteral nutrition, contrast media, or after obtaining blood sample) use: Peripheral IV = 10 mL Midline or Central Line = 20 mL/lumen Post-op Start: 08-09-2020 take 25 mL intraveno usly every hour as needed 25 mL, Intravenous, at 100 mL/hr, PRN, If patient receiving piggyback infusions without ordered maintenance IV fluids or with frequent/long duration piggyback infusions, Starting on Sun08/09/20 at 2106 Administer at the same rate as the piggyback being infused. Post-op Start: 08-09-2020 take 5-40 mL intravenously onc e 5-40 mL, Intravenous, PRN, Line Care, Starting on Sun08/09/20 at 2106 After every IV line use Post-op traMADol hydrochloride 50 mg oral tablet (11 sources) Opioid Agonist Start: 03-30-2016 take 1 tablet by mouth every six hours traMADol HCl 50 MG 1 tablet as needed Orally every 6 hrs for 30 days Mar, Not-Taking End: 08-09-2020 take 1 tablet by mouth every twelve hours as needed for pain traMADol (ULTRAM) 50 MG tablet Take 50 mg by mouth every 12 hours as needed for Pain. 0 08/09/2020 Discontinued (Stop Taking at Discharge) vitamin b12 1 mg oral tablet (2 sources) Vitamin B12 take 1 tablet by mouth once daily Vitamin B-12 1000 MCG Oral Tablet TAKE 1 TABLET DAILY DIRECTED. 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] Onset: 3 Chronic Acute posthemorrhagic anemia (2 sources) Anemia following acute postoperative blood loss; Translations: [Acute posthemorrhagic anemia] Onset: 1 Episodic Allergic reactions (8 sources) Inflammatory dermatosis; Translations: [Dermatitis, unspecified] Episodic Asthma (20 sources) Mild intermittent asthma; Translations: [Mild intermittent asthma, uncomplicated] Onset: 8 Chronic Asthma (1 source) Asthma; Translations: [Asthma, unspecified, unspecified status] Onset: 8 Blindness and vision defects (3 sources) Other visual disturbances Episodic Cardiac and circulatory congenital anomalies (20 sources) Patent foramen ovale; Translations: [Atrial septal defect] Onset: 1 Chronic Chronic obstructive pulmonary disease and bronchiectasis (20 sources) Mucopurulent chronic bronchitis; Translations: [Mucopurulent chronic bronchitis] Onset: 8 Resolved: 0 04-11-2023 Chronic Coagulation and hemorrhagic disorders (2 sources) Hypercoagulability state; 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 Complication of device; implant or graft (8 sources) Pain due to knee joint prosthesis; Translations: [Pain due to internal orthopedic prosthetic devices, implants and grafts, initial encounter] Onset: 4 09-12-2023 Episodic Disorders of lipid metabolism (20 sources) Familial hypercholesterolemia; Translations: [Hypercholesterolemia] Onset: 4 Chronic E Codes: Adverse effects of medical drugs (8 sources) Adverse effect of other viral vaccines, initial encounter; Translations: [Adverse effect of other viral vaccines, initial encounter] Episodic Esophageal disorders (2 sources) Gastro-esophageal reflux disease with esophagitis; Translations: [Gastro-esophageal reflux disease with esophagitis, without bleeding] Chronic Esophageal disorders (6 sources) Esophageal disorders; Translations: [Gastro-esophageal reflux disease with esophagitis, without bleeding] Essential hypertension (20 sources) Essential hypertension; Translations: [Essential (primary) hypertension] Onset: 4 Chronic Hyperplasia of prostate (20 sources) Benign prostatic hyperplasia without lower urinary tract symptoms; Translations: [Benign prostatic hypertrophy without outflow obstruction] Onset: 4 Chronic Immunizations and screening for infectious disease (16 sources) Contact with and (suspected) exposure to other viral communicable diseases; Translations: [Vaccination given] Episodic Mycoses (2 sources) Pain in toe; Translations: [Tinea unguium] 12-10-2023 Episodic Occlusion or stenosis of precerebral arteries (8 sources) Carotid artery occlusion; Translations: [Occlusion and stenosis of unspecified carotid artery] Onset: 8 Chronic Osteoarthritis (20 sources) Osteoarthritis of right knee joint; Translations: [Unilateral primary osteoarthritis, right knee] Onset: 1 Resolved: 1 Chronic Other aftercare (9 sources) Patient encounter status; Translations: [Aftercare following joint replacement surgery] Chronic Other aftercare (11 sources) Long-term current use of anticoagulant; Translations: [intermission coordinator (current) use of anticoagulants] Onset: 1 Episodic Other aftercare (4 sources) Other snf (current) drug therapy; Translations: [OTH BRAKE MECHANIC CURRENT DRUG THERAPY] Onset: 2 Episodic Other aftercare (8 sources) Long-term current use of drug therapy; Translations: [Other long term care administrator (current) drug therapy] Episodic Other and ill-defined cerebrovascular disease (16 sources) Cerebral atherosclerosis; Translations: [Cerebral atherosclerosis] 04-11-2023 Chronic Other and ill-defined cerebrovascular disease (7 sources) Cerebral atherosclerosis; Translations: [Cerebral atherosclerosis] Chronic Other and unspecified benign neoplasm (7 sources) Polyp of colon; Translations: [Polyp of colon] Episodic Other and unspecified benign neoplasm (1 source) Polyp of colon; Translations: [Polyp of colon] Episodic Other circulatory disease (16 sources) History of cerebrovascular disease; Translations: [Personal history of transient ischemic attack (TIA), and cerebral infarction without residual deficits] 04-11-2023 Episodic Other circulatory disease (7 sources) Personal history of transient ischemic attack (TIA), and cerebral infarction without residual deficits; Translations: [Personal history of transient ischemic attack (TIA), and cerebral infarction without residual deficits] Episodic Other circulatory disease (13 sources) History of cerebrovascular accident without residual deficits; Translations: [Personal history of transient ischemic attack [TIA], and cerebral infarction without residual deficits] Onset: 8 Episodic Other circulatory disease (8 sources) Cardiovascular symptoms; Translations: [Other specified symptoms and signs involving the circulatory and respiratory systems] Episodic Other circulatory disease (2 sources) History of cerebrovascular accident; Translations: [Personal history of transient ischemic attack (TIA), and cerebral infarction without residual deficits] Episodic Other connective tissue disease (4 sources) History of total knee arthroplasty; Translations: [Presence of right artificial knee joint] Onset: 1 Chronic Other connective tissue disease (8 sources) Artificial knee joint present; Translations: [Presence of right artificial knee joint] Chronic Other connective tissue disease (4 sources) Presence of left artificial knee joint; Translations: [Knee joint replacement] Onset: 4 09-12-2023 Chronic Other connective tissue disease (1 source) Pain in left toe(s); Translations: [Pain in limb] 11-20-2023 Episodic Other ear and sense organ disorders (7 sources) Sensorineural hearing loss, bilateral; Translations: [Sensorineural hearing loss, bilateral] Chronic Other ear and sense organ disorders (1 source) Sensorineural hearing loss, bilateral; Translations: [Sensorineural hearing loss, bilateral] Chronic Other ear and sense organ disorders (7 sources) Bilateral tinnitus; Translations: [Tinnitus, bilateral] Episodic Other ear and sense organ disorders (1 source) Tinnitus, bilateral; Translations: [Tinnitus, bilateral] Episodic Other injuries and conditions due to external causes (7 sources) History of fall; Translations: [History of falling] Episodic Other injuries and conditions due to external causes (1 source) History of falling; Translations: [History of falling] Episodic Other lower respiratory disease (11 sources) Cough; Translations: [Cough, unspecified] Onset: 8 05-10-2023 Episodic Other nervous system disorders (7 sources) Facial nerve disorder; Translations: [Other disorders of facial nerve] Episodic Other nervous system disorders (1 source) Other disorders of facial nerve; Translations: [Other disorders of facial nerve] Episodic Other non-traumatic joint disorders (8 sources) Lower limb joint arthritis; Translations: [Osteoarthrosis, unspecified whether generalized or localized, lower leg] Onset: 5 Chronic Other non-traumatic joint disorders (2 sources) Hemarthrosis of right knee; Translations: [Hemarthrosis, right knee] Onset: 1 Episodic Other nutritional; endocrine; and metabolic disorders (8 sources) Overweight; Translations: [Overweight] Episodic Other nutritional; endocrine; and metabolic disorders (2 sources) Overweight in adulthood with body mass index of 25 or more but less than 30; Translations: [Overweight] Episodic Other upper respiratory disease (8 sources) Seasonal allergic rhinitis; Translations: [Other seasonal allergic rhinitis] Onset: 8 Chronic Other upper respiratory disease (7 sources) Dysphonia; Translations: [Dysphonia] Episodic Other upper respiratory disease (1 source) Dysphonia; Translations: [Dysphonia] Episodic Other upper respiratory infections (20 sources) Acute pharyngitis; Translations: [Acute pharyngitis due to other specified organisms] Onset: 4 Episodic Otitis media and related conditions (20 sources) Acute secretory otitis media; Translations: [Other acute nonsuppurative otitis media, right ear] Onset: 6 Resolved: 2 Episodic Phlebitis; thrombophlebitis and thromboembolism (8 sources) Chronic deep venous thrombosis of thigh; Translations: [Chronic venous embolism and thrombosis of deep vessels of proximal lower extremity] Onset: 4 Chronic Phlebitis; thrombophlebitis and thromboembolism (20 sources) H/O: Deep vein thrombosis; Translations: [Personal history of other venous thrombosis and embolism] Onset: 4 Episodic Retinal detachments; defects; vascular occlusion; and retinopathy (8 sources) Hypertensive retinopathy; Translations: [Hypertensive retinopathy, unspecified eye] Onset: 2 Chronic Screening and history of mental health and substance abuse codes (19 sources) Ex-smoker; Translations: [History of tobacco use] Onset: 7 11-27-2019 Episodic Comment on above: quit 1965; Skin and subcutaneous tissue infections (2 sources) Paronychia; Translations: [Paronychia] 11-20-2023 Episodic Spondylosis; intervertebral disc disorders; other back problems (20 sources) Lumbosacral spondylosis without myelopathy; Translations: [Lumbosacral spondylosis without myelopathy] Onset: 5 Chronic Substance-related disorders (8 sources) Tobacco user; Translations: [Nicotine dependence, cigarettes, in remission] Chronic Unclassified (3 sources) CONTACT W/AND (SUSP) EXPOS COVID-19; Translations: [CONTACT W/AND (SUSP) EXPOS COVID-19] Onset: 2 Unclassified (1 source) Asymptomatic microscopic hematuria 11-27-2019 Unclassified (1 source) Drug therapy finding 10-23-2018 Unclassified (6 sources) Other specified cough; Translations: [Other specified cough] Onset: 8 Unclassified (1 source) Pain in joint, lower leg; Translations: [Pain in joint, lower leg] Onset: 5 Unclassified (1 source) Obstructive chronic bronchitis with acute bronchitis; Translations: [Obstructive chronic bronchitis with acute bronchitis] Onset: 8 Unclassified (1 source) Hypertrophy (benign) of prostate without urinary obstruction and other lower urinary tract symptoms [LUTS]; Translations: [Hypertrophy (benign) of prostate without urinary obstruction and other lower urinary tract symptoms [LUTS]] Onset: 8 Unclassified (1 source) Personal history of tobacco use, presenting hazards to health; Translations: [Personal history of tobacco use, presenting hazards to health] Onset: 7 Past or Other Problems Problem Classification Problem Date Documented Date Episodic/Chronic Bacterial infection; unspecified site (8 sources) Bacterial infectious disease; Translations: [Bacterial infection, unspecified, in conditions classified elsewhere and of unspecified site] Onset: 05-28-2017 Episodic Headache; including migraine (3 sources) Headache; including migraine Malaise and fatigue (8 sources) Malaise and fatigue; Translations: [Other malaise and fatigue] Onset: 09-23-2013 Episodic Neoplasms of unspecified nature or uncertain behavior (8 sources) Neoplasm of uncertain behavior of skin; Translations: [Neoplasm of uncertain behavior of skin] Onset: 06-01-2015 Episodic Other aftercare (5 sources) Encounter for therapeutic drug level monitoring; Translations: [ENC THERAPEUTC DRUG LEVL MONITORING] Onset: 01-23-2017 Episodic Other aftercare (1 source) intermission coordinator (current) use of anticoagulants; Translations: [FPC CURRNT USE ANTICOAGULANTS] Onset: 06-27-2021 Episodic Other aftercare (7 sources) Therapeutic drug level - finding; Translations: [Encounter for therapeutic drug level monitoring] Onset: 01-23-2017 Episodic Other connective tissue disease (7 sources) Cramp in limb; Translations: [Cramp of limb] Onset: 01-23-2017 Episodic Other connective tissue disease (7 sources) Plantar fascial fibromatosis; Translations: [Plantar fascial fibromatosis] Onset: 08-06-2013 Episodic Other connective tissue disease (1 source) Cramp of limb; Translations: [Cramp of limb] Onset: 01-23-2017 Episodic Other connective tissue disease (1 source) Plantar fascial fibromatosis; Translations: [Plantar fascial fibromatosis] Onset: 08-06-2013 Episodic Other hematologic conditions (8 sources) Secondary polycythemia; Translations: [Secondary polycythemia] Onset: 01-16-2016 Episodic Other lower respiratory disease (7 sources) Dyspnea; Translations: [Other forms of dyspnea] Onset: 05-08-2017 Episodic Other lower respiratory disease (1 source) Other forms of dyspnea; Translations: [Other forms of dyspnea] Onset: 05-08-2017 Episodic Other non-traumatic joint disorders (7 sources) Arthralgia of the lower leg; Translations: [Pain in joint, lower leg] Onset: 12-10-2014 Episodic Other nutritional; endocrine; and metabolic disorders (16 sources) Body mass index 25-29 - overweight; Translations: [Body mass index 28.0-28.9, adult] Onset: 01-23-2017 Episodic Other screening for suspected conditions (not mental disorders or infectious disease) (18 sources) Raised prostate specific antigen; Translations: [Elevated prostate specific antigen (PSA)] Onset: 09-23-2013 10-23-2018 Episodic Residual codes; unclassified (8 sources) Requires influenza virus vaccination; Translations: [Need for prophylactic vaccination and inoculation, Influenza] Onset: 11-13-2017 Episodic Residual codes; unclassified (7 sources) Family history of malignant neoplasm of gastrointestinal tract; Translations: [Family history of malignant neoplasm of digestive organs] Onset: 09-23-2013 Episodic Residual codes; unclassified (1 source) Family history of malignant neoplasm of digestive organs; Translations: [Family history of malignant neoplasm of digestive organs] Onset: 09-23-2013 Episodic Spondylosis; intervertebral disc disorders; other back problems (20 sources) Thoracic and lumbosacral neuritis; Translations: [Thoracic or lumbosacral neuritis or radiculitis, unspecified] Onset: 07-22-2014 Resolved: 08-15-2021 Episodic Transient cerebral ischemia (2 sources) Transient cerebral ischemia; Translations: [Personal history of transient ischemic attack [TIA], and cerebral infarction without residual deficits] Onset: 11-13-2017 Unclassified (1 source) CONTACT W/AND (SUSP) EXPOS COVID-19; Translations: [CONTACT W/AND (SUSP) EXPOS COVID-19] Onset: 02-21-2022 Unclassified (8 sources) Long-term current use of drug therapy; Translations: [Long-term (current) use of other medications] Onset: 07-10-2016 Unclassified (8 sources) Chronic venous embolism and thrombosis of other specified veins; Translations: [Chronic venous embolism and thrombosis of other specified veins] Onset: 12-25-2013 Results Test Name Value Interpretation Reference Range Facility Automated basophil %Ordered By: Yogesh Jacob on 09-12-2023 Basophils/100 WBC (Bld) 0.8 % . [facility] Comment on above: Performed By: #### C RP, DDIMER, ESR, CBC #### [address] Automated basophil countOrde red By: Yogesh Jacob on 09-12-2023 Basophils (Bld) [#/Vol] 0.0 10*3/uL 0.0-0.2 [facility] Comment on above: Performed By: #### C RP, DDIMER, ESR, CBC #### [address] Automated blood monocyte cou ntOrdered By: Yogesh Jacob on 09-12-2023 Monocytes (Bld) [#/Vol] 0.7 10*3/uL 0.0-0.8 [facility] Comment on above: Performed By: #### C RP, DDIMER, ESR, CBC #### [address] Automated eosinophil %Ordere d By: Yogesh Jacob on 09-12-2023 Eosinophils/100 WBC (Bld) 5.8 % . [facility] Comment on above: Performed By: #### C RP, DDIMER, ESR, CBC #### [address] Automated eosinophil countOr dered By: Yogesh Jacob on 09-12-2023 Eosinophils (Bld) [#/Vol] 0.3 10*3/uL 0.0-0.45 [facility] Comment on above: Performed By: #### C RP, DDIMER, ESR, CBC #### [address] Automated monocyte %Ordered By: Yogesh Jacob on 09-12-2023 Monocytes/100 WBC (Bld) 12.2 % . [facility] Comment on above: Performed By: #### C RP, DDIMER, ESR, CBC #### [address] Automated neutrophil %Ordere d By: Yogesh Jacob on 09-12-2023 Neutrophils/100 WBC (Bld) 49.4 % . [facility] Comment on above: Performed By: #### C RP, DDIMER, ESR, CBC #### [address] C reactive protein [Mass/vol ume] in Serum or PlasmaOrdered By: Yogesh Jacob on 09-12-2023 CRP [Mass/Vol] < 0.5 mg/dL 0.0-0.5 [facility] C-Reactive Proteinon 024 CRP [Mass/Vol] mg/L Normal 0.0-0.5 [facility] Comment on above: Result Comment: PERF ORMED BY: [place] [address] PATHOLOGIST GAG WRITER DOLORES RICHARDS M.D. Performed By: #### C RP, DDIMER, ESR, CBC #### [address] Complete Blood Count Auto Di ffon 09-12-2023 Mean Corpuscular HGB Conc 35.1 g/dL Normal 32.5-35.6 [facility] Comment on above: Performed By: #### C RP, DDIMER, ESR, CBC #### [address] NRBC% 0.1 /100{WBC} Normal 0-0.5 [facility] Comment on above: Performed By: #### C RP, DDIMER, ESR, CBC #### [address] D-Dimer High Sensitivityon 0 09-12-2023 D-Dimer High Sensitivity 233 ng/mL Normal 0-243 [facility] Comment on above: Result Comment: The reference range for D-dimer is <243 ng/mL D-dimer units. D-dimer results must be used in conjunction with a clinical pretest probability (PTP) assessment model for deep vein thrombosis (DVT) and pulmonary embolism (PE). Results <230 ng/mL d-dimer units can be used as a negative predictor in patients with low or moderate probability for DVT/PE. Results above the exclusion threshold of 230 ng/ml D-dimer units for DVT/PE may indicate the need for further diagnostic testing. D-Dimer can be increased in hospitalized patients due to co-morbid conditions. A hematocrit value greater than 55% may lead to inaccurate results in coagulation testing. Patients having hematocrit values >55% require a special collection tube for coagulation studies. Please contact the laboratory at [phone] for redraw instructions. PERFORMED BY: [place] [address] PATHOLOGIST GAG WRITER DOLORES RIHCARDS M.D. Performed By: #### C RP, DDIMER, ESR, CBC #### [address] Erythrocyte Sedimentation Ra enriqueta 09-12-2023 ESR (Bld) [Velocity] 10 mm/h Normal 0-19 [facility] Comment on above: Result Comment: PERF ORMED BY: [place] [address] PATHOLOGIST GAG WRITER DOLORES RICHARDS M.D. Performed By: #### C RP, DDIMER, ESR, CBC #### [address] Erythrocyte distribution wid th [Ratio] by Automated countOrdered By: Yogesh Jacob on 09-12-2023 Erythrocyte distribution width (RBC) [Ratio] 12.8 % 12.0-14.8 [facility] Comment on above: Performed By: #### C RP, DDIMER, ESR, CBC #### [address] Erythrocyte sedimentation ra te by Photometric methodOrdered By: Yogesh Jacob on 09-12-2023 ESR Photometric method (Bld) [Velocity] 10 mm/hr 0-19 [facility] Erythrocytes [#/volume] in B lood by Automated countOrdered By: Yogesh Jacob on 09-12-2023 RBC (Bld) [#/Vol] 4.35 10*6/uL 3.90-5.60 [facility] Comment on above: Performed By: #### C RP, DDIMER, ESR, CBC #### [address] Fibrin D-dimer [Presence] in Platelet poor plasma by Latex agglutinationOrdered By: Yogesh aJcob on 09-12-2023 Fibrin D-dimer LA Ql (PPP) 233 ng/mL 0-243 [facility] Comment on above: The reference range for D-dimer is <243 ng/mL D-dimer units.D-dimer results must be used in conjunction with a clinicalpretest probability (PTP) assessment model for deep veinthrombosis (DVT) and pulmonary embolism (PE). Results <230ng/mL d-dimer units can be used as a negative predictor inpatients with low or moderate probability for DVT/PE.Results above the exclusion threshold of 230 ng/ml D-dimerunits for DVT/PE may indicate the need for furtherdiagnostic testing.D-Dimer can be increased in hospitalized patients due toco-morbid conditions.A hematocrit value greater than 55% may lead to inaccurate results in coagulation testing. Patients having hematocrit values >55% require a special collection tube for coagulation studies. Please contact the laboratory at [phone] for redraw instructions. Hematocrit [Volume Fraction] of Blood by Automated countOrdered By: Yogesh Jacob on 09-12-2023 Hematocrit (Bld) [Volume fraction] 40.7 % 38.8-50.0 [facility] Comment on above: Performed By: #### C RP, DDIMER, ESR, CBC #### [facility] [address] Hemoglobin [Mass/volume] in BloodOrdered By: Yogesh Jacob on 09-12-2023 Hemoglobin (Bld) [Mass/Vol] 14.3 g/dL 13.0-17.0 [facility] Comment on above: Performed By: #### C RP, DDIMER, ESR, CBC #### [facility] [address] [place] [address] [place] Leukocytes [#/volume] correc jodee for nucleated erythrocytes in Blood by Automated counOrdered By: Yogesh Jacob on 09-12-2023 WBC corrected for nucl RBC Auto (Bld) [#/Vol] 5.3 10*3/uL 4.1-10.5 [facility] Leukocytes [#/volume] in Blo od by Automated countOrdered By: Yogesh Jacob on 09-12-2023 WBC (Bld) [#/Vol] 5.3 10*3/uL 4.1-10.5 [facility] Comment on above: Performed By: #### C RP, DDIMER, ESR, CBC #### [address] Lymphocytes [#/volume] in Bl ood by Automated countOrdered By: Yogesh Jacob on 09-12-2023 Lymphocytes (Bld) [#/Vol] 1.7 10*3/uL 1.00-4.8 [facility] Comment on above: Performed By: #### C RP, DDIMER, ESR, CBC #### [address] Lymphocytes/100 leukocytes i n Blood by Automated countOrdered By: Yogesh Jacob on 09-12-2023 Lymphocytes/100 WBC (Bld) 31.8 % . [facility] Comment on above: Performed By: #### C RP, DDIMER, ESR, CBC #### [address] MCH [Entitic mass] by Automa jodee countOrdered By: Yogesh Jacob on 09-12-2023 MCH (RBC) [Entitic mass] 32.9 pg 27.5-35.2 [facility] Comment on above: Performed By: #### C RP, DDIMER, ESR, CBC #### [address] MCHC Auto (RBC) [Mass/Vol]Or dered By: Yogesh Jacob on 09-12-2023 MCHC (RBC) [Mass/Vol] 35.1 g/dL 32.5-35.6 [facility] MCV [Entitic volume] by Auto mated countOrdered By: Yogesh Jacob on 09-12-2023 MCV (RBC) [Entitic vol] 93.7 fL 83.5-101 [facility] Comment on above: Performed By: #### C RP, DDIMER, ESR, CBC #### [address] Neutrophils [#/volume] in Bl ood by Automated countOrdered By: Yogesh Jacob on 09-12-2023 Neutrophils (Bld) [#/Vol] 2.6 10*3/uL 1.8-7.7 [facility] Comment on above: Performed By: #### C RP, DDIMER, ESR, CBC #### [facility] [address] [place] [address] [place] Nucleated erythrocytes [Pres ence] in Blood by Automated countOrdered By: Yogesh Jacob on 09-12-2023 Nucleated RBC Auto Ql (Bld) 0.1 /100{WBC} 0-0.5 [facility] Platelet mean volume [Entiti c volume] in Blood by Automated countOrdered By: Yogesh Jacob on 09-12-2023 Platelet mean volume (Bld) [Entitic vol] 9.0 fL 6.6-10.1 [facility] Comment on above: Performed By: #### C RP, DDIMER, ESR, CBC #### [facility] [address] [place] [address] [place] Platelets [#/volume] in Bloo d by Automated countOrdered By: Yogesh Jacob on 09-12-2023 Platelets (Bld) [#/Vol] 127 10*3/uL Low 150-450 [facility] Comment on above: Performed By: #### C RP, DDIMER, ESR, CBC #### [facility] [address] [place] [address] XR knee LT 3V - NOT FOR ER U Jake 09-12-2023 XR knee LT 3V - NOT FOR ER USE [facility] [address] [place] [address] XRay Report Signed Patient: Yanelis Noriega MR#: [id number] : 1945 Acct:[id number] Age/Sex: 78 / M ADM Date: 09/12/23 [place] [facility]: Type: [facility] Attending Dr: Yogesh Jacob II, MD Copies to: Yogesh Jacob MD Ordering Provider: Yogesh Jacob MD Date of Service: 09/12/23 XR/XR knee LT 3V - NOT FOR ER USE: Z96.652 - Presence of left artificial knee joint 3 views left knee plain film COMPARISON: 2017 HISTORY: Left-sided total knee arthroplasty. Medial knee pain ACUTE FINDINGS: No acute findings DEGENERATIVE CHANGE: Unremarkable SOFT TISSUE FINDINGS: Atherosclerosis JOINT EFFUSION: Small POSTOP CHANGES: Adequate hardware. BONE MINERALIZATION: Adequate XR/XR knee LT 3V - NOT FOR ER USE IMPRESSION: Uncomplicated left knee arthroplasty. Small joint effusion. Impression dictated by: Reji Alvarado M.D.09/12/2023 3:39 PM Dictation Location: RADIO-PC-08 Transcribed By: ARLYN 09/12/23 153 Dictated By: Reji Alvarado DO 09/12/231537 Signed By: 09/12/23 153 Normal [facility] Physician [facility] XR pelvis 1-2Von 09-12-2023 XR pelvis 1-2V [facility] [address] [place] [address] XRay Report Signed Patient: Yanelis Noriega MR#: [id number] : 1945 Acct:[id number] Age/Sex: 78 / M ADM Date: 09/12/23 [place] [facility]: Type: [facility] Attending Dr: Yogesh Jacob II, MD Copies to: Yogesh Jacob MD Ordering Provider: Yogesh Jacob MD Date of Service: 09/12/23 XR/XR pelvis 1-2V: Z96.652 - Presence of left artificial knee joint Single view of the pelvis plain film HISTORY: Left total knee arthroplasty. Pain for 2 months COMPARISON: None ACUTE FINDINGS: None BONY ALIGNMENT: Adequate SOFT TISSUES: Atherosclerosis DEGENERATIVE CHANGE:Mild bilateral hip and SI joint degeneration INTRAPELVIC STRUCTURES: Unremarkable POSTSURGICAL CHANGES:None XR/XR pelvis 1-2V IMPRESSION:Mild degeneration Impression dictated by: Reji Alvarado M.D.09/12/2023 3:38 PM Dictation Location: RADIO-PC-08 Transcribed By: [facility] 09/12/23 153 Dictated By: Reji Alvarado DO 09/12/23 153 Signed By: 09/12/23 153 Normal [facility] Phys[facility] Alanine Aminotransferaseon 1 04-02-2022 ALT [Catalytic activity/Vol] 18 U/L Normal 16-63 U/L [employer] Other Basic Metabolic Panelon Anion gap [Moles/Vol] 10.8 mmol/L No rt [employer] Other Calcium [Mass/Vol] 8.5746924 mg/dL Normal 8.5-10 .1 mg/dL [place] [employer] Other Chloride [Moles/Vol] 105 mmol/L Normal 98-107 mmol/L [facility] [employer] Other CO2 [Moles/Vol] 30.12522583 mmol/L Normal 21.0-3 2.0 mmol/L [place] [employer] Other Creatinine [Mass/Vol] 1.99462197 mg/dL Normal 0. 70-1.30 mg/dL [place] [employer] Other Glucose [Mass/Vol] 151 mg/dL High 74-106 mg/dL [place] [employer] Other Potassium [Moles/Vol] 4.64006836 mmol/L Normal 3 .5-5.1 mmol/L [place] [employer] Other Sodium [Moles/Vol] 142 mmol/L Normal 136-145 mmol/L [place] [employer] Other Urea nitrogen [Mass/Vol] 18.1914374 mg/dL Normal 7.0-18.0 mg/dL [place] [employer] Other Urea nitrogen/Creatinine [Mass ratio] 17.0 mg/mg [facility] [employer] Other Basic Metabolic Panel see note [facility] [employer] Other Basic Metabolic Panel >60 >=60 [facility] [employer] Other Lipid Panelon 01-30-2023 Cholesterol [Mass/Vol] 178 mg/dL <=200 mg/dL [place] [employer] Other Cholesterol in HDL [Mass/Vol] 53 mg/dL Normal 40-60 mg/dL [place] [employer] Other Triglyceride [Mass/Vol] 174 mg/dL High <=150 mg/dL [employer] Other Lipid Panel 91.0 mg/dL [employer] Other Lipid Panel 34.8 mg/dL [employer] Other Lipid Panel 3.4 [employer] Other PSA SCREENINGon 01-30-2023 PSA SCREENING 0.74 ng/mL <=4.00 ng/mL [employer] Other [facility] TransthoracicOrdere d By: Teo Johnson on 12-25-2022 LV A4C EF 62.2 [facility] Work Phone: [facility] Work Phone: [facility] [employer] [address], [place] [address] TRANSTHORACIC ECHOCARDIOGRAM REPORT Patient Name: YANELIS NORIEGA [place] Physician: [id number] Teo Johnson MD, [facility] Study Date: 12/21/2022 Ordering Provider: [id number] TEO JOHNSON MRN/PID: [id number] Fellow: Nurse: Sveta Trinh RN Date of /Age: 11 1945 / 77 years [employer] Security: Osiris Barba RDCS Leslie Gender: M Additional Staff: Height: 170.18 cm Admit Date: Weight: 82.56 kg Admission Status: BSA: 1.94 m2 Department Location: [facility] Blood Pressure: 154 /86 mmHg Study Type: TRANSTHORACIC ECHO (TTE) LIMITED Diagnosis/ICD: Abnormal findings on diagnostic imaging of heart and coronary circulation-R93.1; Cerebral Infarction, unspecified-I63.9 Indication: HTN, Hyperlipidemia, Former Smoker, History of CVA, History of DVT, Overweight, Lacunar Infarct, Daily ETOH CPT Codes: Echo Limited-27219 Study Detail: The following Echo studies were performed: 2D and M-Mode. Agitated saline used as a contrast agent for intraseptal flow evaluation. PHYSICIAN INTERPRETATION: Left Ventricle: Left ventricular systolic function is normal, with an estimated ejection fraction of 60-65%. There are no regional wall motion abnormalities. The left ventricular cavity size is normal. Left ventricular diastolic filling was not assessed. Left Atrium: The left atrium is normal in size. The left atrial septum appears to be aneurysmal and the bubble study demonstrated PFO with [id number] shunt. Right Ventricle: The right ventricle is normal in size. There is normal right ventricular global systolic function. Right Atrium: The right atrium is normal in size. Aortic Valve: The aortic valve appears abnormal. There is mild to moderate aortic valve cusp calcification. Aortic valve regurgitation was not assessed. Mitral Valve: The mitral valve is mildly thickened. Mitral valve regurgitation was not assessed. Tricuspid Valve: The tricuspid valve is structurally normal. Tricuspid regurgitation was not assessed. Pulmonic Valve: The pulmonic valve is not well visualized. The pulmonic valve regurgitation was not assessed. Pericardium: There is no pericardial effusion noted. Aorta: The aortic root is normal. Systemic Veins: The inferior vena cava appears to be of normal size. CONCLUSIONS: 1. Left ventricular systolic function is normal with a 60-65% estimated ejection fraction. 2. The left atrial septum appears to be aneurysmal and the bubble study demonstrated PFO with rgjfq-ir-sqmd shunt. 3. Aortic valve appears abnormal. QUANTITATIVE DATA SUMMARY: 2D MEASUREMENTS: Normal Ranges: Ao Root d: 3.00 cm (2.0-3.7cm) LAs: 3.90 cm (2.7-4.0cm) RVIDd: 3.50 cm (0.9-3.6cm) IVSd: 0.90 cm (0.6-1.1cm) LVPWd: 1.00 cm (0.6-1.1cm) LVIDd: 5.10 cm (3.9-5.9cm) LVIDs: 3.80 cm LV Mass Index: 90.4 g/m2 LV % FS 25.5 % LV SYSTOLIC FUNCTION BY 2D PLANIMETRY (MOD): Normal Ranges: EF-A4C View: 62.2 % (>=55%) AORTIC VALVE: Normal Ranges: LVOT Diameter: 2.40 cm (1.8-2.4cm) [id number] Teo Johnson MD, FACC Electronically signed on 12/25/2022 at 10:42:09 AM Final Teo Samano M D - 12/25/2022 [facility] [address], [address], [place] [address] TRANSTHORACIC ECHOCARDIOGRAM REPORT Patient Name: YANELIS Haney Physician: [id number] Teo Johnson MD, [facility] Study Date: 12/21/2022 Ordering Provider: [id number] TEO JOHNSON MRN/PID: [id number] Fellow: Nurse: Sveta Trinh RN Date of /Age: 11 1945 / 77 years [employer] Security: Osiris Barba RDCS, T Gender: M Additional Staff: Height: 170.18 cm Admit Date: Weight: 82.56 kg Admission Status: BSA: 1.94 m2 Department Location: [facility] Blood Pressure: 154 /86 mmHg Study Type: TRANSTHORACIC ECHO (TTE) LIMITED Diagnosis/ICD: Abnormal findings on diagnostic imaging of heart and coronary circulation-R93.1; Cerebral Infarction, unspecified-I63.9 Indication: HTN, Hyperlipidemia, Former Smoker, History of CVA, History of DVT, Overweight, Lacunar Infarct, Daily ETOH CPT Codes: Echo Limited-96598 Study Detail: The following Echo studies were performed: 2D and M-Mode. Agitated saline used as a contrast agent for intraseptal flow evaluation. PHYSICIAN INTERPRETATION: Left Ventricle: Left ventricular systolic function is normal, with an estimated ejection fraction of 60-65%. There are no regional wall motion abnormalities. The left ventricular cavity size is normal. Left ventricular diastolic filling was not assessed. Left Atrium: The left atrium is normal in size. The left atrial septum appears to be aneurysmal and the bubble study demonstrated PFO with otngq-zp-xtmt shunt. Right Ventricle: The right ventricle is normal in size. There is normal right ventricular global systolic function. Right Atrium: The right atrium is normal in size. Aortic Valve: The aortic valve appears abnormal. There is mild to moderate aortic valve cusp calcification. Aortic valve regurgitation was not assessed. Mitral Valve: The mitral valve is mildly thickened. Mitral valve regurgitation was not assessed. Tricuspid Valve: The tricuspid valve is structurally normal. Tricuspid regurgitation was not assessed. Pulmonic Valve: The pulmonic valve is not well visualized. The pulmonic valve regurgitation was not assessed. Pericardium: There is no pericardial effusion noted. Aorta: The aortic root is normal. Systemic Veins: The inferior vena cava appears to be of normal size. CONCLUSIONS: 1. Left ventricular systolic function is normal with a 60-65% estimated ejection fraction. 2. 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 3. Aortic valve appears abnormal. QUANTITATIVE DATA SUMMARY: 2D MEASUREMENTS: Normal Ranges: Ao Root d: 3.00 cm (2.0-3.7cm) LAs: 3.90 cm (2.7-4.0cm) RVIDd: 3.50 cm (0.9-3.6cm) IVSd: 0.90 cm (0.6-1.1cm) LVPWd: 1.00 cm (0.6-1.1cm) LVIDd: 5.10 cm (3.9-5.9cm) LVIDs: 3.80 cm LV Mass Index: 90.4 g/m2 LV % FS 25.5 % LV SYSTOLIC FUNCTION BY 2D PLANIMETRY (MOD): Normal Ranges: EF-A4C View: 62.2 % (>=55%) AORTIC VALVE: Normal Ranges: LVOT Diameter: 2.40 cm (1.8-2.4cm) [id number] Teo Johnson MD, [facility] Electronically signed on 12/25/2022 at 10:42:09 AM Final [facility] Work Phone: TRANSTHORACIC ECHO (TTE) [facility] 12-21-2022 TRANSTHORACIC ECHO (TTE) [address], [address] [place] [address] TRANSTHORACIC ECHOCARDIOGRAM REPORT Patient Name: YANELIS NORIEGA Lyndon Physician: [id number] Johnson MD, FACC Study Date: 12/21/2022 Ordering Provider: Jessa JOHNSON MRN/PID: [id number] Fellow: Nurse: Sveta Trinh RN Date of /Age: 11 1945 / 77 years [employer] Security: Osiris Freda RDCS, RVT Gender: M Additional Staff: Height: 170.18 cm Admit Date: Weight: 82.56 kg Admission Status: BSA: 1.94 m2 Department Location: [facility] Blood Pressure: 154 /86 mmHg Study Type: TRANSTHORACIC ECHO (TTE) LIMITED Diagnosis/ICD: Abnormal findings on diagnostic imaging of heart and coronary circulation-R93.1; Cerebral Infarction, unspecified-I63.9 Indication: HTN, Hyperlipidemia, Former Smoker, History of CVA, History of DVT, Overweight, Lacunar Infarct, Daily ETOH CPT Codes: Echo Limited-31282 Study Detail: The following Echo studies were performed: 2D and M-Mode. Agitated saline used as a contrast agent for intraseptal flow evaluation. PHYSICIAN INTERPRETATION: Left Ventricle: Left ventricular systolic function is normal, with an estimated ejection fraction of 60-65%. There are no regional wall motion abnormalities. The left ventricular cavity size is normal. Left ventricular diastolic filling was not assessed. Left Atrium: The left atrium is normal in size. 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 Right Ventricle: The right ventricle is normal in size. There is normal right ventricular global systolic function. Right Atrium: The right atrium is normal in size. Aortic Valve: The aortic valve appears abnormal. There is mild to moderate aortic valve cusp calcification. Aortic valve regurgitation was not assessed. Mitral Valve: The mitral valve is mildly thickened. Mitral valve regurgitation was not assessed. Tricuspid Valve: The tricuspid valve is structurally normal. Tricuspid regurgitation was not assessed. Pulmonic Valve: The pulmonic valve is not well visualized. The pulmonic valve regurgitation was not assessed. Pericardium: There is no pericardial effusion noted. Aorta: The aortic root is normal. Systemic Veins: The inferior vena cava appears to be of normal size. CONCLUSIONS: 1. Left ventricular systolic function is normal with a 60-65% estimated ejection fraction. 2. 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 3. Aortic valve appears abnormal. QUANTITATIVE DATA SUMMARY: 2D MEASUREMENTS: Normal Ranges: Ao Root d: 3.00 cm (2.0-3.7cm) LAs: 3.90 cm (2.7-4.0cm) RVIDd: 3.50 cm (0.9-3.6cm) IVSd: 0.90 cm (0.6-1.1cm) LVPWd: 1.00 cm (0.6-1.1cm) LVIDd: 5.10 cm (3.9-5.9cm) LVIDs: 3.80 cm LV Mass Index: 90.4 g/m2 LV % FS 25.5 % LV SYSTOLIC FUNCTION BY 2D PLANIMETRY (MOD): Normal Ranges: EF-A4C View: 62.2 % (>=55%) AORTIC VALVE: Normal Ranges: LVOT Diameter: 2.40 cm (1.8-2.4cm) [id number] Teo Johnson MD, [facility] Electronically signed on 12/25/2022 at 10:42:09 AM Final [facility] Office Visit (Cardiology)on 11-09-2022 Follow-up visit Diagnoses/Problems Assessed Hypertension (401.9) (I10) Hyperlipidemia (272.4) (E78.5) History of stroke (V12.54) (Z86.73) History of DVT (deep vein thrombosis) (V12.51) (Z86.718) Former smoker (V15.82) (Z87.891) quit 1965 Overweight with body mass index (BMI) of 28 to 28.9 in adult (278.02,V85.24) (E66.3,Z68.28) Abnormal echocardiogram (793.2) (R93.1) Lacunar infarction (434.91) (I63.81) Orders Abnormal echocardiogram, History of stroke, Hyperlipidemia, Lacunar infarction VASC LAB TCD Bubble Study; Status:Hold For - Scheduling; Requested for:09Nov2022; Laterality : Bilateral History of stroke, Hyperlipidemia, Hypertension IO EKG Electrocardiogram- 12 Lead; Status:Complete; Done: [id number] Overweight with body mass index (BMI) of 28 to 28.9 in adult Healthy Weight Tips; Status:Complete; Done: [id number] Some eating tips that can help you lose weight.; Status:Complete; Done: [id number] SocHx: Former smoker Tobacco Use Screening; Status:Complete; Done: [id number] Patient Instructions Please bring all medicines, vitamins, and herbal supplements with you when you come to the office. Prescriptions will not be filled unless you are compliant with your follow up appointments or have a follow up appointment scheduled as per instruction of your physician. Refills should be requested at the time of your visit. Echo with bubble study Follow-up after testing completed Chief Complaint YANELIS NORIEGA is being seen for an initial evaluation of Laureano evaluation. 77-year-old white male was referred to me by Dr. Blu velez for consideration of LAUREANO to rule out ASD/PFO. The patient presented recently with symptoms of pain behind his left ear and subsequently had MRI of the brain which demonstrated evidence of lacunar infarctions. His carotid scan was unremarkable and the patient had no focal neurological symptoms. He had transthoracic echocardiogram in [facility] which she read possible PFO. There was minimal enlargement of the artery and the RV and RVSP measured 39 mmHg. Patient denies any symptoms of palpitations or TIA. He has no chest pain orthopnea PND or lower extremity edema and no angina. He has hyperlipidemia hypertension medical therapy and he is a reformed smoker. His EKG reveals no abnormalities of any concern. His examination was normal except for slight overweight. I did review the echo report from [facility] and the other imaging studies. Assessment/recommendations : 1?reported PFO on an outside echocardiogram with no indication of performing a bubble study. The referring physician would like for me to consider doing a transesophageal echocardiogram. I suggested to the patient to proceed with simpler measures that are noninvasive such as doing a bubble study. If we have good look at the septum and there is no indication of PFO or shunt across the atrial septum with a bubble study there will be no need to proceed invasively with a transesophageal echocardiogram. The patient currently has no symptoms of neurological deficit and he is already on aspirin and Eliquis. 2?history of DVT in the past on maintenance therapy with Eliquis without any bleeding complications 3?hypertension currently on benazepril and amlodipine along with hydrochlorothiazide under control. 4?hyperlipidemia on small dose of atorvastatin 10 mg daily. Followed by PCP 5?overweight, encouraged patient to lose weight with diet and exercise Surgical History Problems History of Back surgery History of Cataract surgery History of Complete colonoscopy 2020 History of Hernia repair History of Knee replacement History of Knee surgery History of Shoulder surgery Current Meds Medication NameInstruction amLODIPine Besylate 5 MG Oral TabletTAKE 1 TABLET BY MOUTH EVERY DAY Aspirin 81 MG Oral Tablet Delayed ReleaseTAKE 1 TABLET DAILY. Atorvastatin Calcium 10 MG Oral TabletTAKE 1 TABLET AT BEDTIME. Benazepril HCl - 20 MG Oral TabletTAKE 1 TABLET DAILY. Giz-Oip-Jxjy 333-133-5 MG TABSTAKE 1 TABLET DAILY. Eliquis 2.5 MG Oral TabletTake 1 tablet twice daily hydroCHLOROthiazide 12.5 MG Oral TabletTAKE 1 TABLET DAILY. Vitamin B-12 1000 MCG Oral TabletTAKE 1 TABLET DAILY DIRECTED. Vitamin C ER 1000 MG TBCRTAKE 1 TABLET DAILY. Vitamin D-3 25 MCG (1000 UT) Oral CapsuleTAKE DIRECTED. Allergies Medication Bactrim Rash; Recorded By: Geetha Alves; 11/09/2022 9:46:25 AM sulfamethoxazole-trimethop rim Rash; Updated By: Geetha Alves; 11/09/2022 9:46:55 AM NonMedication IV Contrast Dye Rash; Updated By: Geetha Alves; 11/09/2022 9:46:55 AM Social History Problems Daily alcohol use 5-6 beers daily Daily caffeine consumption 2-3 servings a day Former smoker (V15.82) (Z87.891) quit 1964 No illicit drug use Review of Systems Constitutional: not feeling tired. Cardiovascular: no intermittent leg claudication and as noted in HPI. Respiratory: no cough and no shortness of breath. Gastrointestinal: no (more content not included)... Normal [place] Tobacco Screening.on 023 Adult depression screening assessment No [facility] y 250 DO Work Phone: Fall risk assessment a) No falls within the last year [facility] 250 DO Work Phone: Tobacco use status CP b) No [facility] 250 DO Work Phone: [place] 08-31-2022 Screens [id number]:127 Normal [facility] Screens [id number]:127 Normal [facility] Ambulatory Visit Summaryon 0 08-30-2022 Ambulatory Visit Summary YANELIS NORIEGA :1945 Visit Date:08/30/2022 Ambulatory Visit Instructions Your Diagnosis BPH without urinary obstruction Anticoagulated Tests Performed Urnls Dip Stick Auto w/o Microscopy POC 49976 Your Care Team Attending Physician - Clarisa Ibarra MD Primary Care Physician - BLU VELEZ DO This Is Your Medications List Contact prescribing physician if questions or concerns amlodipine (amLODIPine 5 mg Tab) apixaban (Eliquis 2.5 mg oral tablet) atorvastatin benazepril hydrochlorothiazide (hydrochlorothiazide 12.5 mg Cap) Procedures Performed Cystoscopy (12/25/2019), Arthroscopy of knee, Colonoscopy, Esophagogastroduodenoscopy , Herniorrhaphy, Knee replacement, Repair of rotator cuff of shoulder. Discharge Vitals Heart Rate (Peripheral) 68 Blood Pressure 125/77 Height 172 cm Height 68 in Weight 82.5 kg Weight 181.5 lb BMI 27.89 What to do next You Need to Schedule the Following Appointments Follow Up with Fred TABARES, Clarisa Cedeno, URL, URO When: Comments: PRN Where: Medications What How Much When Instructions Unchanged amlodipine (amLODIPine 5 mg Tab) Contact prescribing physician if questions or concerns Unchanged apixaban (Eliquis 2.5 mg oral tablet) 1 Tablets By Mouth 2 times a day Contact prescribing physician if questions or concerns Unchanged atorvastatin By Mouth Every day Contact prescribing physician if questions or concerns Unchanged benazepril By Mouth Every day Contact prescribing physician if questions or concerns Unchanged hydrochlorothiazide (hydrochlorothiazide 12.5 mg Cap) By Mouth Every day Contact prescribing physician if questions or concerns Test Results Urnls Dip Stick Auto w/o Microscopy POC 14188 (08/30/2022) Bilirubin Urine Dipstick - Negative Blood Urine Dipstick - Negative Glucose Urine Dipstick - Negative Ketones Urine Dipstick - Negative Leukocytes Urine Dipstick - Negative Nitrite Urine Dipstick - Negative Protein Urine Dipstick - Negative Specific [place] Urine Dipstick - >=1.030 Urine Appearance Urine Dipstick - Clear Urine Color Urine Dipstick - Yellow Urobilinogen Urine Dipstick - Normal 0.2-1 EU/dl pH Urine Dipstick - 5.5 Allergies iodine (Unknown) sulfa drugs (Unknown) Problems Ongoing - Any problem that you are currently receiving treatment for. Anticoagulated Asymptomatic microscopic hematuria BPH without urinary obstruction Elevated PSA Enlarged prostate Former smoker Historical - Any problem that you are no longer receiving treatment for. Hypertension Thrombosis Venous embolism [employer] Benign Prostatic Hyperplasia Benign prostatic hyperplasia (BPH) is an enlarged prostate gland that is caused by the normal aging process. The prostate may get bigger as a man gets older. The condition is not caused by cancer. The prostate is a walnut-sized gland that is involved in the production of semen. It is located in front of the rectum and below the bladder. The bladder stores urine. The urethra carries stored urine out of the body. An enlarged prostate can press on the urethra. This can make it harder to pass urine. The buildup of urine in the bladder can cause infection. Back pressure and infection may progress to bladder damage and kidney (renal) failure. What are the causes? This condition is part of the normal aging process. However, not all men develop problems from this condition. If the prostate enlarges away from the urethra, urine flow will not be blocked. If it enlarges toward the urethra and compresses it, there will be problems passing urine. What increases the risk? This condition is more likely to develop in men older than 50 years. What are the signs or symptoms? Symptoms of this condition include: ? Getting up often during the night to urinate. ? Needing to urinate frequently during the day. ? Difficulty starting urine flow. ? Decrease in size and strength of your urine stream. ? Leaking (dribbling) after urinating. ? Inability to pass urine. This needs immediate treatment. ? Inability to completely empty your bladder. ? Pain when you pass urine. This is more common if there is also an infection. ? Urinary tract infection (UTI). How is this diagnosed? This condition is diagnosed based on your medical history, a physical exam, and your symptoms. Tests will also be done, such as: ? A post-void bladder scan. This measures any amount of urine that may remain in your bladder after you finish urinating. ? A digital rectal exam. In a rectal exam, your health care provider checks your prostate by putting a lubricated, gloved finger into your rectum to feel the back of your prostate gland. This exam detects the size of your gland and any abnormal lumps or growths. ? An exam of your urine (urinalysis). ? A prostate specific antigen (PSA) screening. This is a blood test used to s (more content not included)... Normal [facility] Patient Educationon 08-31-19 Patient Education Urology Benign Prostatic Hyperplasia Benign prostatic hyperplasia (BPH) is an enlarged prostate gland that is caused by the normal aging process. The prostate may get bigger as a man gets older. The condition is not caused by cancer. The prostate is a walnut-sized gland that is involved in the production of semen. It is located in front of the rectum and below the bladder. The bladder stores urine. The urethra carries stored urine out of the body. An enlarged prostate can press on the urethra. This can make it harder to pass urine. The buildup of urine in the bladder can cause infection. Back pressure and infection may progress to bladder damage and kidney (renal) failure. What are the causes? This condition is part of the normal aging process. However, not all men develop problems from this condition. If the prostate enlarges away from the urethra, urine flow will not be blocked. If it enlarges toward the urethra and compresses it, there will be problems passing urine. What increases the risk? This condition is more likely to develop in men older than 50 years. What are the signs or symptoms? Symptoms of this condition include: ? Getting up often during the night to urinate. ? Needing to urinate frequently during the day. ? Difficulty starting urine flow. ? Decrease in size and strength of your urine stream. ? Leaking (dribbling) after urinating. ? Inability to pass urine. This needs immediate treatment. ? Inability to completely empty your bladder. ? Pain when you pass urine. This is more common if there is also an infection. ? Urinary tract infection (UTI). How is this diagnosed? This condition is diagnosed based on your medical history, a physical exam, and your symptoms. Tests will also be done, such as: ? A post-void bladder scan. This measures any amount of urine that may remain in your bladder after you finish urinating. ? A digital rectal exam. In a rectal exam, your health care provider checks your prostate by putting a lubricated, gloved finger into your rectum to feel the back of your prostate gland. This exam detects the size of your gland and any abnormal lumps or growths. ? An exam of your urine (urinalysis). ? A prostate specific antigen (PSA) screening. This is a blood test used to screen for prostate cancer. ? An ultrasound. This test uses sound waves to electronically produce a picture of your prostate gland. Your health care provider may refer you to a specialist in kidney and prostate diseases (urologist). How is this treated? Once symptoms begin, your health care provider will monitor your condition (active surveillance or watchful waiting). Treatment for this condition will depend on the severity of your condition. Treatment may include: ? Observation and yearly exams. This may be the only treatment needed if your condition and symptoms are mild. ? Medicines to relieve your symptoms, including: ? Medicines to shrink the prostate. ? Medicines to relax the muscle of the prostate. ? Surgery in severe cases. Surgery may include: ? Prostatectomy. In this procedure, the prostate tissue is removed completely through an open incision or with a laparoscope or robotics. ? Transurethral resection of the prostate (TURP). In this procedure, a tool is inserted through the opening at the tip of the penis (urethra). It is used to cut away tissue of the inner core of the prostate. The pieces are removed through the same opening of the penis. This removes the blockage. ? Transurethral incision (TUIP). In this procedure, small cuts are made in the prostate. This lessens the prostate's pressure on the urethra. ? Transurethral microwave thermotherapy (TUMT). This procedure uses microwaves to create heat. The heat destroys and removes a small amount of prostate tissue. ? Transurethral needle ablation (TUNA). This procedure uses radio frequencies to destroy and remove a small amount of prostate tissue. ? Interstitial laser coagulation (ILC). This procedure uses a laser to destroy and remove a small amount of prostate tissue. ? Transurethral electrovaporization (TUVP). This procedure uses electrodes to destroy and remove a small amount of prostate tissue. ? Prostatic urethral lift. This procedure inserts an implant to push the lobes of the prostate away from the urethra. Follow these instructions at home: ? Take ckpt-uor-ktpdwij and prescription medicines only as told by your health care provider. ? Monitor your symptoms for any changes. Contact your health care provider with any changes. ? Avoid drinking large amounts of liquid before going to bed or out in public. ? Avoid or reduce how much caffeine or alcohol you drink. ? Give yourself time when you urinate. ? Keep all follow-up visits. This is important. Contact a health care provider if: ? You have unexplained back pain. ? Your symptoms do not get better with treatment. ? You develop side effects from the medicine (more content not included)... Normal [facility] Urology Office/Clinic Noteon 08-30-2022 Urology Office/Clinic Note Chief Complaint 8 month follow up w/ PSA HPI Staff 6m PSA DX: BPH PSA 08/21/22- 1.43 IPSS SCORE 1 Dysuria: denies pain and burning Incomplete bladder emptying: denies Hematuria: denies visible blood Frequency: 1-2x a day Urgency: denies Nocturia: once a night Stream: denies hesitancy, moderate stream Leaking: denies Post void dripping: denies Wearing pads/ Depends: denies Urge incontinence: denies Stress incontinence: denies Incontinence without Sensory Awareness: denies Abdominal pain: denies Flank pain: denies History of Present Illness Tests reviewed: reviewed UA, PSA I have reviewed the previous health record information and history for this patient from Dr. Ibarra. I have reviewed and verified the staff HPI to be accurate for this encounter. There have been no associated fever, chills, flank pain, or blood in the urine. Denies any urinary infections since last encounter. Review of Systems PHQ Score Initial Depression Screen Score: 0 ROS - Provider Constitutional: denies weight loss, denies hot flashes. Eyes: denies eye problems. Gastrointestinal: denies nausea, denies vomiting. Cardiovascular: denies chest pain or angina. Integumentary: no dryness Musculoskeletal: denies musculoskeletal symptoms. ENMT: denies otolaryngeal symptoms. Respiratory: no shortness of breath. Heme/Lymph: denies easy bleeding tendency, denies easy bruising tendency. Psychiatric: no confusion, no anxiety. Genitourinary: See HPI. Physical Exam Vitals & Measurements HR: 68(Peripheral) BP: 125/77 HT: 68 in HT: 172 cm WT: 82.5 kg WT: 181.5 lb BMI: 27.89 General Appearance: alert, no distress, well nourished, well developed male. Assessment/Plan CHENG 15, Pt is happy with his sexual function. 1. BPH without urinary obstruction (N40.0: Benign prostatic hyperplasia without lower urinary tract symptoms) IPSS 1 UA today is clear/neg no signs Currently not on any BPH medications at this time Denies any urinary complaints, no weak stream CLAUDETTE today benign PSA 09/02/19 - 1.34 11/17/20 - 0.74 11/21/21 - 1.43 08/21/22 - 1.43 -Advised pt can have his PCP monitor PSA annually for routine prostate cancer screening a part of wellness given no other urologic issues, normal range and stability -Will follow up as needed. All questions and concerns were discussed. Pt acknowledge and understands. Pt will call our office with any changes in urinary symptoms. 2. Anticoagulated (Z79.01: detention (current) use of anticoagulants) Eliquis 2.5 mg BID Elevated risk of periop complications in the future Follow-up With When Contact Information Fred TABARES, Clarisa Cedeno, URL, URO Additional Instructions: PRN Patient Education Benign Prostatic Hyperplasia I, Jenny Britt, personally scribed for Dr. Iabrra on 08/30/2022 10:06:04. . Documentation recorded by the scribe, Jenny Britt, accurately reflects the services(s) I performed and decisions made by me. Authenticated by Dr. Ibarra on 08/30/2022 10:47:42. Problem List/Past Medical History Ongoing Anticoagulated Asymptomatic microscopic hematuria BPH without urinary obstruction Elevated PSA Enlarged prostate Former smoker Historical Hypertension Thrombosis Venous embolism Procedure/Surgical History Cystoscopy (12/25/2019), Arthroscopy of knee, Colonoscopy, Esophagogastroduodenoscopy , Herniorrhaphy, Knee replacement, Repair of rotator cuff of shoulder. Medications amLODIPine 5 mg Tab atorvastatin, Oral, Daily benazepril, Oral, Daily Eliquis 2.5 mg oral tablet, 2.5 mg= 1 tab(s), Oral, BID hydrochlorothiazide 12.5 mg Cap, Oral, Daily Allergies iodine (Unknown) sulfa drugs (Unknown) Social History Alcohol Current, Beer, Daily, 10/24/2018 Substance Abuse - Denies Substance Abuse, 10/23/2018 Tobacco Former smoker, quit more than 30 days ago Tobacco Use:. Never Smokeless Tobacco Use:. Cigarettes, 08/30/2022 Family History CA - Cancer of kidney: Father. Diabetes mellitus type 2: Mother. Immunizations Vaccine Date Status Comments SARS-CoV-2 (COVID-19) [id number] 11/15/2021 Recorded SARS-CoV-2 (COVID-19) mRNA BNT-162b2 vax 11/22/2020 Recorded 2022: TPV75 SARS-CoV-2 (COVID-19) mRNA BNT-162b2 vax 04/18/2020 Recorded 2022: TPV75 SARS-CoV-2 (COVID-19) mRNA BNT-162b2 vax 03/28/2020 Recorded 2022: TPV75 influenza virus vaccine, inactivated 11/13/2017 Recorded influenza virus vaccine, inactivated 01/15/2017 Recorded pneumococcal 23-valent vaccine 07/10/2016 Recorded Lab Results Ambulatory Point of Care Results Bilirubin Urine Dipstick: Negative (08/30/22 09:20:00) Blood Urine Dipstick: Negative (08/30/22 09:20:00) Glucose Urine Dipstick: Negative (08/30/22 09:20:00) Ketones Urine Dipstick: Negative (08/30/22 09:20:00) Leukocytes Urine Dipstick: Negative (08/30/22 09:20:00) Nitrite Urine Dipstick: Negative (08/30/22 (more content not included)... Normal [facility] Comment on above: Result Comment: Elec tronically Signed By: Clarisa Ibarra MD\.br\Date and Time Signed: 08/30/22 10:47 EDT\.br\Electronically Co-Signed By: Jenny Britt\.br\Date and Time Co-Signed: 08/30/22 10:06 EDT Lab Reportson 08-28-2022 Lab Reports [id number]:[id number] Normal [facility]-27 SARS-CoV-2 (COVID-19) RNA MEREDITH+probe Ql (Unsp spec) Not detected Normal NOT DETECTED [facility] Comment on above: Result Comment: This test is not yet approved or cleared by the [place] FDA. When there are no FDA-approved or cleared tests available, and other criteria are met, FDA can make tests available under an emergency access mechanism called an Emergency Use Authorization (EUA). The EUA for this test is supported by the Republic of Health and Human Service's (HHS's) declaration that circumstances exist to justify the emergency use of in vitro diagnostics for the detection and/or diagnosis of the virus that causes COVID-19. This EUA will remain in effect (meaning this test can be used) for the duration of the COVID-19 declaration justifying emergency of IVDs, unless it is terminated or revoked by FDA (after which the test may no longer be used). When diagnostic testing is negative, the possibility of a false negative should be considered in the context of a patient's recent exposures and the presence of clinical signs and symptoms consistent with SARS-CoV-2. Performed By: #### C VDTB #### [facility] [address] [place] [address] Dr. Tisha John CBC AUTO DIFFon 01-23-2022 BASO # 0.1 103/ul Normal 0.0-0.1 [facility] Comment on above: Performed By: #### C BC #### [facility] [address] [place] [address] Dr. Tisha John Basophils/100 WBC (Bld) 1.3 % Normal 0.2-2.0 [facility] Comment on above: Performed By: #### C BC #### [facility] [address] [place] [address] Dr. Tisha John EO # 0.5 103/ul Normal 0.0-0.7 [facility] Comment on above: Performed By: #### C BC #### [facility] [address] [place] [address] Dr. Tisha John Eosinophils/100 WBC (Bld) 8.8 % Critically high 0.9-7.0 [facility] Comment on above: Performed By: #### C BC #### [facility] [address] [place] [address] Dr. Tisha John Erythrocyte distribution width (RBC) [Ratio] 11.9 % Normal 11.0-15.0 [facility] Comment on above: Performed By: #### C BC #### [facility] [address] [place] [address] Dr. Tisha John Hematocrit (Bld) [Volume fraction] 40.5 % Critically low 42.0-54.0 [facility] Comment on above: Performed By: #### C BC #### [facility] [address] [place] [address] Dr. Tisha John Hemoglobin (Bld) [Mass/Vol] 14.5 g/dL Normal 14.0-18.0 [facility] Comment on above: Performed By: #### C BC #### [facility] [address] [place] [address] Dr. Tisha John IG # 0.02 10e3/ul Normal 0.00-0.03 [facility] Comment on above: Performed By: #### C BC #### [facility] [address] [place] [address] Dr. Tisha John IG % 0.4 % Normal 0.0-0.5 [facility] Comment on above: Performed By: #### C BC #### [facility] [address] [place] [address] Dr. Tisha John LYMPH # 1.8 103/ul Normal 1.2-3.8 [facility] Comment on above: Performed By: #### C BC #### [facility] [address] [place] [address] Dr. Tisha John Lymphocytes/100 WBC (Bld) 32.2 % Normal 20.5-60.0 [facility] Comment on above: Performed By: #### C BC #### [facility] [address] [place] [address] Dr. Tisha John MANUAL DIFF REQ NO Normal [facility] Comment on above: Performed By: #### C BC #### [facility] [address] [place] [address] Dr. Tisha John MCH (RBC) [Entitic mass] 32.1 pg Normal 25.9-34.0 [facility] Comment on above: Performed By: #### C BC #### [facility] [address] [address] [address] Tisha John MCHC (RBC) [Mass/Vol] 35.8 g/dL Critically high 29.9-35.2 [facility] Comment on above: Performed By: #### C BC #### [facility] [address] [address] [address] Tisha John MCV (RBC) [Entitic vol] 89.6 fL Normal 80.0-94.0 [facility] Comment on above: Performed By: #### C BC #### [facility] [address] [address] [address] Tisha John MONO # 0.6 103/ul Normal 0.3-0.8 [facility] Comment on above: Performed By: #### C BC #### [facility] [address] [place] [address] Dr. Tisha John Monocytes/100 WBC (Bld) 11.3 % Normal 1.7-12.0 [facility] Comment on above: Performed By: #### C BC #### [facility] [address] [address] [address] Tisha John NEUT # 2.6 103/ul Normal 1.4-6.5 [facility] Comment on above: Performed By: #### C BC #### [facility] [address] [place] [address] Dr. Tisha John Neutrophils/100 WBC (Bld) 46.0 % Normal 43.0-75.0 [facility] Comment on above: Performed By: #### C BC #### [facility] [address] [address] [address] Tisha John Platelet mean volume (Bld) [Entitic vol] 10.5 fL Normal 9.5-13.5 [facility] Comment on above: Performed By: #### C BC #### [facility] [address] [address] [address] Tisha John PLT 134 103/ul Critically low 150-450 [facility] Comment on above: Performed By: #### C BC #### [facility] [address] [address] [address] Tisha John RBC 4.52 106/ul Critically low 4.70-6.10 [facility] Comment on above: Performed By: #### C BC #### [facility] [address] [address] [address] Tisha John WBC 5.6 103/ul Normal 4.0-11.0 [facility] Comment on above: Performed By: #### C BC #### [facility] [address] [address] [address] Tisha John LIPID PROFILEon 01-23-2022 CHOL-HDL RATIO NORM SEE BELOW Normal [facility] Comment on above: Result Comment: 3.3 - 4.4 LOW RISK 4.4 - 7.1 AVERAGE RISK 7.1 - 11.0 MODERATE RISK >11.0 HIGH RISK Performed By: #### A LT, BMP, LIPID #### [facility] [address] [address] [address] Tisha John Cholesterol [Mass/Vol] 187 mg/dL Normal <=200 [facility] Comment on above: Performed By: #### A LT, BMP, LIPID #### [facility] [address] [address] [address] Tisha John Cholesterol in HDL [Mass/Vol] 51 mg/dL Normal 40-60 [facility] Comment on above: Performed By: #### A LT, BMP, LIPID #### [facility] [address] [address] [address] Tisha John Cholesterol in LDL [Mass/Vol] 104.8 mg/dL Normal [facility] Comment on above: Performed By: #### A LT, BMP, LIPID #### [facility] [address] [id number] Tisha John Cholesterol.total/Cho lesterol in HDL [Mass ratio] 3.7 {ratio} Normal [facility] Comment on above: Performed By: #### A LT, BMP, LIPID #### [facility] [address] [address] [address] Tisha John HDL NORMAL > or = 60 mg/dl - LO W CARDIOVASCULAR RISK <40 mg/dl - HIGH CARDIOVASCULAR RISK Normal [facility] Comment on above: Performed By: #### A LT, BMP, LIPID #### [facility] [address] [address] [address] Tisha John LDL CALC NORMAL SEE BELOW Normal [facility] Comment on above: Result Comment: <100 mg/dl OPTIMAL 100 - 129 mg/dl NEAR OR ABOVE OPTIMAL 130 - 159 mg/dl BORDERLINE HIGH 160 - 189 mg/dl HIGH >190 mg/dl VERY HIGH Performed By: #### A LT, BMP, LIPID #### [facility] [address] [address] [address] Tisha John Triglyceride [Mass/Vol] 156 mg/dL Critically high <=150 [facility] Comment on above: Performed By: #### A LT, BMP, LIPID #### [facility] [address] [address] [address] Tisha John VLDL CALC 31.2 mg/dL Normal [facility] Comment on above: Performed By: #### A LT, BMP, LIPID #### [facility] [address] [address] [address] Tisha John PROF CHEM 8 (BAS METB)on Anion gap [Moles/Vol] 10.7 mmol/L Normal [facility] Comment on above: Performed By: #### A LT, BMP, LIPID #### [facility] [address] [address] [address] Tisha John Calcium [Mass/Vol] 8.7 mg/dL Normal 8.5-10.1 [facility] Comment on above: Performed By: #### A LT, BMP, LIPID #### [facility] [address] [address] [address] Tisha John Chloride [Moles/Vol] 102 mmol/L Normal 98-107 [facility] Comment on above: Performed By: #### A LT, BMP, LIPID #### [facility] [address] [address] [address] Tisha John CO2 [Moles/Vol] 30.7 mmol/L Normal 21.0-32.[address] [facility] Comment on above: Performed By: #### A LT, BMP, LIPID #### [facility] [address] [address] [address] Tisha John Creatinine [Mass/Vol] 0.88 mg/dL Normal 0.70-1.30 [facility] Comment on above: Performed By: #### A LT, BMP, LIPID #### [facility] [address] [address] [address] Tisha John EGFR-AF PANAMANIAN >60 Normal >=[address] [facility] Comment on above: Performed By: #### A LT, BMP, LIPID #### [facility] [address] [address] [address] Tisha John EGFR-NON AF PANAMANIAN >60 Normal >=60 [facility] Comment on above: Performed By: #### A LT, BMP, LIPID #### [facility] [address] [address] [address] iTsha John Glucose [Mass/Vol] 106 mg/dL Normal 74-106 [facility] Comment on above: Performed By: #### A LT, BMP, LIPID #### [facility] [address] [address] [address] Tisha John Potassium [Moles/Vol] 4.4 mmol/L Normal 3.5-5.1 [facility] Comment on above: Performed By: #### A LT, BMP, LIPID #### [facility] [address] [address] [address] Tisha John Sodium [Moles/Vol] 139 mmol/L Normal 136-145 [facility] Comment on above: Performed By: #### A LT, BMP, LIPID #### [facility] [address] [address] [address] Tisha John Urea nitrogen [Mass/Vol] 16.0 mg/dL Normal 7.0-18.0 [facility] Comment on above: Performed By: #### A LT, BMP, LIPID #### [facility] [address] [address] [address] Tisha John Urea nitrogen/Creatinine [Mass ratio] 18.2 mg/mg Normal [facility] Comment on above: Performed By: #### A LT, BMP, LIPID #### [facility] [address] [place], [place] [address] Dr. Tisha John Ivan 01-23-2022 ALT [Catalytic activity/Vol] 23 U/L Normal 16-63 [facility] Comment on above: Performed By: #### A LT, BMP, LIPID #### [facility] [id number] Tisha John Ambulatory Visit Summaryon 1 03-13-2021 Ambulatory Visit Summary YANELIS NORIEGA :1945 Visit Date:2022 Ambulatory Visit Instructions Your Diagnosis BPH without urinary obstruction Anticoagulated Tests Performed Urnls Dip Stick Auto w/o Microscopy POC [id number] Your Care Team Attending Physician - Clarisa Ibarra MD Primary Care Physician - BLU VELEZ DO This Is Your Medications List Contact prescribing physician if questions or concerns amlodipine (amLODIPine 5 mg Tab) apixaban (Eliquis 2.5 mg oral tablet) atorvastatin benazepril Procedures Performed Cystoscopy (12/25/2019), Arthroscopy of knee, Colonoscopy, Esophagogastroduodenoscopy , Herniorrhaphy, Knee replacement, Repair of rotator cuff of shoulder. Discharge Vitals Height 172 cm Height 68 in Weight 82.5 kg Weight 181.5 lb BMI 27.89 What to do next Scheduled Follow-Up Appointments Sunday. 2022 9:30 AM EDT With: Clarisa Ibarra MD Where: [facility] Patient Educationon 01-12-20 22 Patient Education Urology Benign Prostatic Hyperplasia Benign prostatic hyperplasia (BPH) is an enlarged prostate gland that is caused by the normal aging process and not by cancer. The prostate is a walnut-sized gland that is involved in the production of semen. It is located in front of the rectum and below the bladder. The bladder stores urine and the urethra is the tube that carries the urine out of the body. The prostate may get bigger as a man gets older. An enlarged prostate can press on the urethra. This can make it harder to pass urine. The build-up of urine in the bladder can cause infection. Back pressure and infection may progress to bladder damage and kidney (renal) failure. What are the causes? This condition is part of a normal aging process. However, not all men develop problems from this condition. If the prostate enlarges away from the urethra, urine flow will not be blocked. If it enlarges toward the urethra and compresses it, there will be problems passing urine. What increases the risk? This condition is more likely to develop in men over the age of 50 years. What are the signs or symptoms? Symptoms of this condition include: ? Getting up often during the night to urinate. ? Needing to urinate frequently during the day. ? Difficulty starting urine flow. ? Decrease in size and strength of your urine stream. ? Leaking (dribbling) after urinating. ? Inability to pass urine. This needs immediate treatment. ? Inability to completely empty your bladder. ? Pain when you pass urine. This is more common if there is also an infection. ? Urinary tract infection (UTI). How is this diagnosed? This condition is diagnosed based on your medical history, a physical exam, and your symptoms. Tests will also be done, such as: ? A post-void bladder scan. This measures any amount of urine that may remain in your bladder after you finish urinating. ? A digital rectal exam. In a rectal exam, your health care provider checks your prostate by putting a lubricated, gloved finger into your rectum to feel the back of your prostate gland. This exam detects the size of your gland and any abnormal lumps or growths. ? An exam of your urine (urinalysis). ? A prostate specific antigen (PSA) screening. This is a blood test used to screen for prostate cancer. ? An ultrasound. This test uses sound waves to electronically produce a picture of your prostate gland. Your health care provider may refer you to a specialist in kidney and prostate diseases (urologist). How is this treated? Once symptoms begin, your health care provider will monitor your condition (active surveillance or watchful waiting). Treatment for this condition will depend on the severity of your condition. Treatment may include: ? Observation and yearly exams. This may be the only treatment needed if your condition and symptoms are mild. ? Medicines to relieve your symptoms, including: ? Medicines to shrink the prostate. ? Medicines to relax the muscle of the prostate. ? Surgery in severe cases. Surgery may include: ? Prostatectomy. In this procedure, the prostate tissue is removed completely through an open incision or with a laparoscope or robotics. ? Transurethral resection of the prostate (TURP). In this procedure, a tool is inserted through the opening at the tip of the penis (urethra). It is used to cut away tissue of the inner core of the prostate. The pieces are removed through the same opening of the penis. This removes the blockage. ? Transurethral incision (TUIP). In this procedure, small cuts are made in the prostate. This lessens the prostate's pressure on the urethra. ? Transurethral microwave thermotherapy (TUMT). This procedure uses microwaves to create heat. The heat destroys and removes a small amount of prostate tissue. ? Transurethral needle ablation (TUNA). This procedure uses radio frequencies to destroy and remove a small amount of prostate tissue. ? Interstitial laser coagulation (ILC). This procedure uses a laser to destroy and remove a small amount of prostate tissue. ? Transurethral electrovaporization (TUVP). This procedure uses electrodes to destroy and remove a small amount of prostate tissue. ? Prostatic urethral lift. This procedure inserts an implant to push the lobes of the prostate away from the urethra. Follow these instructions at home: ? Take bdxj-raq-zmvhoig and prescription medicines only as told by your health care provider. ? Monitor your symptoms for any changes. Contact your health care provider with any changes. ? Avoid drinking large amounts of liquid before going to bed or out in public. ? Avoid or reduce how much caffeine or alcohol you drink. ? Give yourself time when you urinate. ? Keep all follow-up visits as told by your health care provider. This is important. Contact a health care provider if: ? You have unexplained back pain. ? Your symptoms do not get better with treatment. ? You d (more content not included)... Normal [facility] Urology Office/Clinic Noteon 2022 Urology Office/Clinic Note Chief Complaint 1yr PSA HPI Staff DLS pt here for 1 yr f/u with PSA due to BPH. Additional DX: Microscopic Hematuria. Recent PSA done 11/21/21 1.43 Urinary Symptoms Blood in Urine: No Frequency of Urination: No Nocturia: depends on fluid intake before bed. Not very often Urgency of Urination: No Urinary Incontinence: No Weak Urinary Stream: No History of Present Illness Tests Reviewed: Reviewed UA. I have reviewed and verified the staff HPI to be accurate for this encounter. I have reviewed the previous health record information and history for this patient from Dr. Smallwood There have been no associated fever, chills, flank pain, or blood in the urine. Denies any urinary infections since last encounter. Review of Systems PHQ Score Initial Depression Screen Score: 0 ROS - Provider Constitutional: denies weight loss, denies hot flashes. Eyes: denies eye problems. Gastrointestinal: denies nausea, denies vomiting. Cardiovascular: denies chest pain or angina. Integumentary: no dryness Musculoskeletal: denies musculoskeletal symptoms. ENMT: denies otolaryngeal symptoms. Respiratory: no shortness of breath. Heme/Lymph: denies easy bleeding tendency, denies easy bruising tendency. Psychiatric: no confusion, no anxiety. Genitourinary: see HPI Physical Exam Vitals & Measurements HT: 68 in HT: 172 cm WT: 82.5 kg WT: 181.5 lb BMI: 27.89 General Appearance: alert, no distress, well nourished, well developed male. Genitourinary: Flank Pain: none. Bladder: nonpalpable. CLAUDETTE mod enlargement, no firm nodules, non tender Assessment/Plan 1. BPH without urinary obstruction (N40.0: Benign prostatic hyperplasia without lower urinary tract symptoms) - UA today is clear/neg no signs - currently not on any BPH medications at this time - Denies any urinary complaints, no weak stream - denies blood in urine, or any infections since last encounter CLAUDETTE today benign PSA 11/21/21- 1.43 11/17/20- 0.74 - 1.34 - PSA doubled since last encounter, still low - since PSA has doubled, but within normal range, it was discussed to monitor in 6 months instead of a year for trending, and if his PSA continue to rise then other workup options will be discussed. Pt agrees with plan. All questions and concerns were discussed. Pt acknowledge and understands. Pt will call our office with any changes in urinary symptoms. 2. Anticoagulated (Z79.01: detention (current) use of anticoagulants) Eliquis 2.5 mg BID Elevated risk of periop complications in the future Follow-up With When Contact Information Cl Alan MD, Juliana Dallas, URO Within 6 months [facility] [address], [place] [id number]- Additional Instructions: PSA Patient Education Benign Prostatic Hyperplasia I, Petrona Perera, personally scribed for Dr. Ibarra on 2022 12:10:42. . Documentation recorded by the scribe, Petrona Perera, accurately reflects the services(s) I performed and decisions made by me. Authenticated by Dr. Ibarra on 2022 12:31:28. Problem List/Past Medical History Ongoing Anticoagulated Asymptomatic microscopic hematuria BPH without urinary obstruction Elevated PSA Enlarged prostate Former smoker Historical Hypertension Thrombosis Venous embolism Procedure/Surgical History Cystoscopy (12/25/2019), Arthroscopy of knee, Colonoscopy, Esophagogastroduodenoscopy , Herniorrhaphy, Knee replacement, Repair of rotator cuff of shoulder. Medications amLODIPine 5 mg Tab atorvastatin, Oral, Daily benazepril, Oral, Daily Eliquis 2.5 mg oral tablet, 2.5 mg= 1 tab(s), Oral, BID Allergies iodine (Unknown) sulfa drugs (Unknown) Social History Alcohol Current, Beer, Daily, 10/24/2018 Substance Abuse - Denies Substance Abuse, 10/23/2018 Tobacco Former smoker, quit more than 30 days ago Tobacco Use:. Cigarettes, 2022 Family History CA - Cancer of kidney: Father. Diabetes mellitus type 2: Mother. Lab Results Test Name Test Result Date/Time PSA, External 1.43 ng/mL 11/21/2021 12:19 EDT PSA, External 0.74 ng/mL 11/17/2020 09:52 EDT PSA, External 1.34 ng/mL 09/02/2019 11:08 EDT Ambulatory Point of Care Results Bilirubin Urine Dipstick: Negative (01/11/22 11:11:00) Blood Urine Dipstick: Negative (01/11/22 11:11:00) Glucose Urine Dipstick: Negative (01/11/22 11:11:00) Ketones Urine Dipstick: Negative (01/11/22 11:11:00) Leukocytes Urine Dipstick: Negative (01/11/22 11:11:00) Nitrite Urine Dipstick: Negative (01/11/22 11:11:00) Protein Urine Dipstick: Negative (01/11/22 11:11:00) Specific [place] Urine Dipstick: 1.025 (01/11/22 11:11:00) Urine Appearance Urine Dipstick: Clear (01/11/22 11:11:00) Urine Color Urine Dipstick: Yellow (01/11/22 11:11:00) Urobilinogen Urine Dipstick: Normal 0.2-1 EU/dl (01/11/22 11:11:00) pH Urine Dipstick: 5 (01/11/22 11:11:00) Diagnostic Results Tests Re (more content not included)... Normal [facility] Comment on above: Result Comment: Elec tronically Signed By: Clarisa Ibarra MD\.br\Date and Time Signed: 01/11/22 12:31 EST\.br\Electronically Co-Signed By: Petrona Perera\.br\Date and Time Co-Signed: 01/11/22 12:10 EST Lab Report[facility] 11-23-2021 Lab Reports [id number]:[id number] Normal [facility] Basic Metab w/rfx MGon 08-22 (cont.) Normal [facility] Comment on above: Result Comment: Aver age GFR for 70 or more years old: 75 mL/min/1.73sq m Chronic Kidney Disease: <60 mL/min/1.73sq m Kidney failure: <15 mL/min/1.73sq m eGFR calculated using average adult body mass. Additional eGFR calculator available at: http://www.iContainers.com/multiple_crcl_2011.htm Performed By: #### C BC, BMPX #### [facility] [address] [place] [address] Author Agent: Preet Castillo MD Anion gap [Moles/Vol] 13 mmol/L Normal 9-17 [facility] Comment on above: Performed By: #### C BC, BMPX #### [facility] [address] [facility] [place] [address] Author Agent: Preet Castillo MD BUN/CRE Ratio 20 Normal 9-20 [facility] Comment on above: Performed By: #### C BC, BMPX #### [facility] [address] [facility] [place] [address] Author Agent: Preet Castillo MD Calcium [Mass/Vol] 8.5 mg/dL Low 8.6-10.4 [facility] Comment on above: Performed By: #### C BC, BMPX #### [facility] [place] [address] Author Agent: Preet Castillo MD Chloride [Moles/Vol] 105 mmol/L Normal 98-107 [facility] Comment on above: Performed By: #### C BC, BMPX #### [facility] [address] [facility] [place] [address] Author Agent: Preet Castillo MD CO2 [Moles/Vol] 23 mmol/L Normal 20-31 [facility] Comment on above: Performed By: #### C BC, BMPX #### [facility] [place] [address] Author Agent: Preet Castillo MD Creatinine [Mass/Vol] 0.64 mg/dL Low 0.70-1.20 [facility] Comment on above: Performed By: #### C BC, BMPX #### [facility] [place] [address] Author Agent: Preet Castillo MD GFR, Amer >60 Normal >60 [facility] Comment on above: Performed By: #### C BC, BMPX #### [facility] [address] [place] [address] Author Agent: Preet Castillo MD GFR,non Amer >60 Normal >60 [facility] Comment on above: Performed By: #### C BC, BMPX #### [facility] [address] [place] [address] Author Agent: Preet Castillo MD Glucose [Mass/Vol] 108 mg/dL High 70-99 [facility] Comment on above: Performed By: #### C BC, BMPX #### [facility] [address] [place] [address] Author Agent: Preet Castillo MD Potassium [Moles/Vol] 4.0 mmol/L Normal 3.7-5.3 [facility] Comment on above: Performed By: #### C BC, BMPX #### [facility] [address] [place] [address] Author Agent: Preet Castillo MD Sodium [Moles/Vol] 141 mmol/L Normal 135-144 [facility] Comment on above: Performed By: #### C BC, BMPX #### [facility] [address] [place] [address] Author Agent: Preet Castillo MD Urea nitrogen [Mass/Vol] 13 mg/dL Normal 8-23 [facility] Comment on above: Performed By: #### C BC, BMPX #### [facility] [address] [place] [address] Author Agent: Preet Castillo MD Staging: NOT REPORTED Normal [facility] Comment on above: Performed By: #### C BC, BMPX #### [facility] [address] [place] [address] Author Agent: Preet Castillo MD Basic Metabolic Panel w/ Ref tyrese to MGOrdered By: Rachel Mclean on 08-22-2020 Anion gap [Moles/Vol] 13 mmol/L 9 - 17 mmol/L [employer] Phone: Calcium [Mass/Vol] 8.5 mg/dL Low 8.6 - 10. 4 mg/dL [employer] Phone: Chloride [Moles/Vol] 105 mmol/L 98 - 10 7 mmol/L [employer] Phone: CO2 [Moles/Vol] 23 mmol/L 20 - 31 mmol/L [employer] Phone: Creatinine [Mass/Vol] 0.64 mg/dL Low 0.70 - 1.20 mg/dL [employer] Phone: GFR >60 >60 mL/min [employer] Phone: GFR Non- >60 >60 mL/min [employer] Phone: GFR/1.73 sq M.predicted MDRD (S/P/Bld) [Vol rate/Area] [employer] Phone: Comment on above: Average GFR for 70 o r more years old: 75 mL/min/1.73sq m Chronic Kidney Disease: <60 mL/min/1.73sq m Kidney failure: <15 mL/min/1.73sq m eGFR calculated using average adult body mass. Additional eGFR calculator available at: http://www.iContainers.RxEye/multiple_crcl_2012.htm GFR/1.73 sq M.predicted MDRD (S/P/Bld) [Vol rate/Area] NOT REPORTED [employer] Phone: Glucose [Mass/Vol] 108 mg/dL High 70 - 99 mg/dL [employer] Phone: Interpretation and review of laboratory results Abnormal [employer] Phone: Potassium [Moles/Vol] 4.0 mmol/L 3.7 - 5.3 mmol/L [facility] Phone: Sodium [Moles/Vol] 141 mmol/L 135 - 144 mmol/L [facility] Phone: Urea nitrogen (BldV) [Mass/Vol] 13 mg/dL 8 - 23 mg/dL [facility] Phone: Urea nitrogen/Creatinine (Bld) [Mass ratio] 20 [facility] Phone: [facility] Phone: CBCon 08-22-2020 Erythrocyte distribution width (RBC) [Ratio] 12.9 % Normal 11.8-14.4 [facility] Comment on above: Performed By: #### C BC, BMPX #### [facility] [place] [address] Author Agent: Preet Castillo MD Hematocrit (Bld) [Volume fraction] 31.3 % Low 40.7-50.3 [facility] Comment on above: Performed By: #### C NIKOLAI, BMPX #### [facility] [address] [facility] [place] [address] Author Agent: Preet Castillo MD Hemoglobin (Bld) [Mass/Vol] 10.1 g/dL Low 13.0-17.0 [facility] Comment on above: Performed By: #### C BC, BMPX #### [facility] [address] [facility] [place] [address] Author Agent: Preet Castillo MD MCH (RBC) [Entitic mass] 31.0 pg Normal 25.2-33.5 [facility] Comment on above: Performed By: #### C BC, BMPX #### [facility] [place] [address] Author Agent: Preet Castillo MD MCHC (RBC) [Mass/Vol] 32.3 g/dL Normal 28.4-34.8 [facility] Comment on above: Performed By: #### C BC, BMPX #### [facility] [address] [facility] [place] [address] Author Agent: Preet Castillo MD MCV (RBC) [Entitic vol] 96.0 fL Normal 82.6-102.9 [facility] Comment on above: Performed By: #### C BC, BMPX #### [facility] [address] [place] [address]. [place] [address] Author Agent: Preet Castillo MD NRBC Automated 0.0 per 100 WBC Normal 0.0 [facility] Comment on above: Performed By: #### C BC, BMPX #### [facility] [address] [place] [address]. [place] [address] Author Agent: Preet Castillo MD Platelet mean volume (Bld) [Entitic vol] 10.4 fL Normal 8.1-13.5 [facility] Comment on above: Performed By: #### C NIKOLAI, BMPX #### [facility] [address] [place] [address]. [place] [address] Author Agent: Preet Castillo MD Platelets (Bld) [#/Vol] 196 10*3/uL Normal 138-453 [facility] Comment on above: Performed By: #### C BC, BMPX #### [facility] [address] [place] [address]. [place] [address] Author Agent: Preet Castillo MD RBC (Bld) [#/Vol] 3.26 10*6/uL Low 4.21-5.77 [facility] Comment on above: Performed By: #### C BC, BMPX #### [facility] [address] [place] [address] Author Agent: Preet Castillo MD WBC (Bld) [#/Vol] 6.1 10*3/uL Normal 3.5-11.3 [facility] Comment on above: Performed By: #### C BC, BMPX #### [facility] [address] [facility] [place] [address] Author Agent: Preet Castillo MD CBCOrdered By: Rachel logan on 08-22-2020 Hematocrit (Bld) [Volume fraction] 31.3 % Low 40.7 - 50.3 % [employer] Phone: Hemoglobin.gastrointe stinal spec 1 Ql (Stl) 10.1 g/dL Low 13.0 - 17.0 g/dL [employer] Phone: Interpretation and review of laboratory results Abnormal [employer] Phone: MCH (RBC) [Entitic mass] 31.0 pg 25.2 - 33.5 pg [employer] Phone: MCHC (RBC) [Mass/Vol] 32.3 g/dL 28.4 - 34.8 g/dL [employer] Phone: MCV (RBC) [Entitic vol] 96.0 fL 82.6 - 102.9 fL [employer] Phone: NRBC Automated 0.0 0.0 per 100 WBC [employer] Phone: Platelet distribution width (Bld) [Ratio] 12.9 % 11.8 - 14.4 % [employer] Phone: Platelet mean volume (Bld) [Entitic vol] 10.4 fL 8.1 - 13.5 fL [employer] Phone: Platelets (Bld) [#/Vol] 196 10*3/uL [employer] Phone: RBC (Bld) [#/Vol] 3.26 10*6/uL Low 4.21 - 5.77 m/uL [employer] Work Phone: WBC (Bld) [#/Vol] 6.1 10*3/uL [employer] Work Phone: [employer] Work Phone: CBC with DIFFOrdered By: Tabby Maharaj on 08-21-2020 Absolute Eos # 0.04 [employer] Work Phone: Absolute Immature Granulocyte 0.03 [employer] Work Phone: Absolute Lymph # 1.16 [employer] [facility] Work Phone: Absolute Brooks # 0.76 [employer] [facility] Work Phone: Basophils (Bld) [#/Vol] 0.03 10*3/uL [employer] Work Phone: Basophils/100 WBC (Bld) 0 % 0 - 2 % [employer] Work Phone: Differential Type NOT REPORTED [employer] Phone: Eosinophils/100 WBC (Bld) 1 % 1 - 4 % [employer] Work Phone: Hematocrit (Bld) [Volume fraction] 32.2 % Low 40.7 - 50.3 % [employer] Work Phone: Hemoglobin.gastrointe stinal spec 1 Ql (Stl) 10.6 g/dL Low 13.0 - 17.0 g/dL [employer] Work Phone: Immature granulocytes/100 WBC (Bld) 0 % 0 [employer] Work Phone: Interpretation and review of laboratory results Abnormal [employer] Phone: Lymphocytes/100 WBC (Bld) 14 % Low 24 - 43 % [employer] Work Phone: MCH (RBC) [Entitic mass] 31.5 pg 25.2 - 33.5 pg [employer] Work Phone: MCHC (RBC) [Mass/Vol] 32.9 g/dL 28.4 - 34.8 g/dL [employer] Phone: MCV (RBC) [Entitic vol] 95.8 fL 82.6 - 102.9 fL [employer] Phone: Monocytes/100 WBC (Bld) 9 % 3 - 12 % [employer] Work Phone: NRBC Automated 0.0 0.0 per 100 WBC [employer] Phone: Platelet distribution width (Bld) [Ratio] 12.8 % 11.8 - 14.4 % [employer] Phone: Platelet Estimate NOT REPORTED [employer] Phone: Platelet mean volume (Bld) [Entitic vol] 9.7 fL 8.1 - 13.5 fL [employer] Phone: Platelets (Bld) [#/Vol] 211 10*3/uL [employer] Phone: RBC (Bld) [#/Vol] 3.36 10*6/uL Low 4.21 - 5.77 m/uL [employer] Phone: RBC (Bld) [#/Vol] NOT REPORTED [employer] Phone: Segmented neutrophils/100 WBC (Bld) 76 % High 36 - 65 % [employer] Work Phone: Segs Absolute 6.42 [employer] Work Phone: WBC (Bld) [#/Vol] 8.4 10*3/uL [employer] Work Phone: WBC (Bld) [#/Vol] NOT REPORTED [employer] Work Phone: [facility] Work Phone: CBC with Diffon 08-21-2020 Abs. Basophil 0.03 k/uL Normal 0.00-0.20 [facility] Comment on above: Performed By: #### C DP #### [facility] [address] [facility] [place] [address] Author Agent: Preet Castillo MD Abs.Imm.Granulocyte 0.03 k/uL Normal 0.00-0.30 [facility] Comment on above: Performed By: #### C DP #### [facility] [address] [place] [address] Author Agent: Preet Castillo MD Abs.Neutrophil (Seg) 6.42 k/uL Normal 1.50-8.10 [facility] Comment on above: Performed By: #### C DP #### [facility] [place] [address] Author Agent: Preet Castillo MD Basophils/100 WBC (Bld) 0 % Normal 0-2 [facility] Comment on above: Performed By: #### C DP #### [facility] [address] [place] [address] Author Agent: Preet Castillo MD Eosinophils (Bld) [#/Vol] 0.04 10*3/uL Normal 0.00-0.44 [facility] Comment on above: Performed By: #### C DP #### [facility] [place] [address] Author Agent: Preet Castillo MD Eosinophils/100 WBC (Bld) 1 % Normal 1-4 [facility] Comment on above: Performed By: #### C DP #### [facility] [address] [place] [address] Author Agent: Preet Castillo MD Erythrocyte distribution width (RBC) [Ratio] 12.8 % Normal 11.8-14.4 [facility] Comment on above: Performed By: #### C DP #### [facility] [address] [facility] [place] [address] Author Agent: Preet Castillo MD Hematocrit (Bld) [Volume fraction] 32.2 % Low 40.7-50.3 [facility] Comment on above: Performed By: #### C DP #### [facility] [address] [facility] [place] [address] Author Agent: Preet Castillo MD Hemoglobin (Bld) [Mass/Vol] 10.6 g/dL Low 13.0-17.0 [facility] Comment on above: Performed By: #### C DP #### [facility] [address] [facility] [place] [address] Author Agent: Preet Castillo MD Immature granulocytes/100 WBC (Bld) 0 % Normal 0 [facility] Comment on above: Performed By: #### C DP #### [facility] [place] [address] Author Agent: Preet Castillo MD Lymphocytes (Bld) [#/Vol] 1.16 10*3/uL Normal 1.10-3.70 [facility] Comment on above: Performed By: #### C DP #### [facility] [address] [facility] [place] [address] Author Agent: Preet Castillo MD Lymphocytes/100 WBC (Bld) 14 % Low 24-43 [facility] Comment on above: Performed By: #### C DP #### [facility] [facility] [place] [address] Author Agent: Preet Castillo MD MCH (RBC) [Entitic mass] 31.5 pg Normal 25.2-33.5 [facility] Comment on above: Performed By: #### C DP #### [facility] [place] [address] Author Agent: Preet Castillo MD MCHC (RBC) [Mass/Vol] 32.9 g/dL Normal 28.4-34.8 [facility] Comment on above: Performed By: #### C DP #### [facility] [address] [place] [address] Author Agent: Preet Castillo MD MCV (RBC) [Entitic vol] 95.8 fL Normal 82.6-102.9 [facility] Comment on above: Performed By: #### C DP #### [facility] [address] [place] [address] Author Agent: Preet Castillo MD Monocytes (Bld) [#/Vol] 0.76 10*3/uL Normal 0.10-1.20 [facility] Comment on above: Performed By: #### C DP #### [facility] [address] [place] [address] Author Agent: Preet Castillo MD Monocytes/100 WBC (Bld) 9 % Normal 3-12 [facility] Comment on above: Performed By: #### C DP #### [facility] [address] [place] [address]. [place] [address] Author Agent: Preet Castillo MD Neutrophil (Seg) 76 % High 36-65 [facility] Comment on above: Performed By: #### C DP #### [facility] [address] [place] [address] Author Agent: Preet Castillo MD NRBC Automated 0.0 per 100 WBC Normal 0.0 [facility] Comment on above: Performed By: #### C DP #### [facility] [address] [facility] [place] [address] Author Agent: Preet Castillo MD Platelet mean volume (Bld) [Entitic vol] 9.7 fL Normal 8.1-13.5 [facility] Comment on above: Performed By: #### C DP #### [facility] [address] [facility] [place] [address] Author Agent: Preet Castillo MD Platelets (Bld) [#/Vol] 211 10*3/uL Normal 138-453 [facility] Comment on above: Performed By: #### C DP #### [facility] [address] [place] [address]. [place] [address] Author Agent: Preet Castillo MD RBC (Bld) [#/Vol] 3.36 10*6/uL Low 4.21-5.77 [facility] Comment on above: Performed By: #### C DP #### [facility] [address] [facility] [place] [address] Author Agent: Preet Castillo MD WBC (Bld) [#/Vol] 8.4 10*3/uL Normal 3.5-11.3 [facility] Comment on above: Performed By: #### C DP #### [facility] [facility] [place] [address] Author Agent: Preet Castillo MD Auto Diff Performed NOT REPORTED Normal [facility] Comment on above: Performed By: #### C DP #### [facility] [place] [address] Author Agent: Preet Castillo MD Platelet Estimate NOT REPORTED Normal [facility] Comment on above: Performed By: #### C DP #### [facility] [address] [place] [address] Author Agent: Preet Castillo MD RBC morphology finding Nom (Bld) NOT REPORTED Normal [facility] Comment on above: Performed By: #### C DP #### [facility] [address] [place] [address] Author Agent: Preet Castillo MD WBC Morphology NOT REPORTED Normal [facility] Comment on above: Performed By: #### C DP #### [facility] [address] [place] [address] Author Agent: Preet Castillo MD PROTIME-INROrdered By: Elisa Ferraro on 08-10-2020 INR Coag (Bld) [Relative time] 1.0 {INR} [facility] Work Phone: Comment on above: Non-therapeutic Range: INR = 0.9-1.2 Therapeutic Range: Moderate Anticoagulant Intensity: INR = 2.0-3.0 High Anticoagulant Intensity: INR = 2.5-3.5 PT Coag (PPP) [Time] 13.5 s [facility] [employer] Phone: [facility] [employer] Phone: PTon 08-10-2020 INR Coag (PPP) [Relative time] 1.0 {INR} Normal [facility] Comment on above: Result Comment: Non-therapeutic Range: INR = 0.9-1.2 Therapeutic Range: Moderate Anticoagulant Intensity: INR = 2.0-3.0 High Anticoagulant Intensity: INR = 2.5-3.5 Performed By: #### P T #### [facility] [address] [place] [address] Author Agent: Preet Castillo MD PT Coag (PPP) [Time] 13.5 s Normal 11.5-14.2 [facility] Comment on above: Performed By: #### P T #### [facility] [address] [place] [address]. [place] [address] Author Agent: Preet Castillo MD PTon 08-09-2020 INR Coag (PPP) [Relative time] 1.0 {INR} Normal [facility] Comment on above: Result Comment: Non-therapeutic Range: INR = 0.9-1.2 Therapeutic Range: Moderate Anticoagulant Intensity: INR = 2.0-3.0 High Anticoagulant Intensity: INR = 2.5-3.5 Performed By: #### P T, PLT #### [facility] [address] [place] [address]. [place] [address] Author Agent: Preet Castillo MD PT Coag (PPP) [Time] 13.4 s Normal 11.5-14.2 [facility] Comment on above: Performed By: #### P T, PLT #### [facility] [address] [place] [address]. [place] [address] Author Agent: Preet Castillo MD Platelet Counton 08-09-2020 Platelets (Bld) [#/Vol] 144 10*3/uL Normal 138-453 [facility] Comment on above: Performed By: #### P T, PLT #### [facility] [address] [place] [address]. [place] [address] Author Agent: Preet Castillo MD Platelet CountOrdered By: Drake Ferraro on 08-09-2020 Platelets (Bld) [#/Vol] 144 10*3/uL [facility] Work Phone: [facility] Work Phone: [employer]-INROrdered By: Elisa Ferraro on 08-09-2020 INR Coag (Bld) [Relative time] 1.0 {INR} [facility] Work Phone: Comment on above: Non-therapeutic Range: INR = 0.9-1.2 Therapeutic Range: Moderate Anticoagulant Intensity: INR = 2.0-3.0 High Anticoagulant Intensity: INR = 2.5-3.5 PT Coag (PPP) [Time] 13.4 s [employer] Phone: [employer] Phone: XR KNEE RIGHT (1-2 VIEWS)on 08-09-2020 XR KNEE RIGHT (1-2 VIEWS) EXAMINATION: TWO XRAY VIEWS OF THE RIGHT KNEE 08/09/2020 3:30 pm COMPARISON: None. HISTORY: ORDERING SYSTEM PROVIDED HISTORY: postop eval TECHNOLOGIST PROVIDED HISTORY: Of operative side while in recovery room. 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 Images are obtained with an overlying brace. There are faint vascular calcifications posteriorly. Periarticular and intra-articular soft tissue gas and fluid are related to the recent surgical procedure. IMPRESSION: Recent postop changes right TKA Interpreted by: Bradley Harper MD Signed by: Bradley Harper MD 08/09/20 Final result Normal [facility] XR KNEE RIGHT (1-2 VIEWS)Ord ered By: Elisa Ferraro on 08-09-2020 Recent postop change s right TKA [employer] Phone: EXAMINATION: TWO XRA Y VIEWS OF THE RIGHT KNEE 08/09/2020 3:30 pm COMPARISON: None. HISTORY: ORDERING SYSTEM PROVIDED HISTORY: postop eval TECHNOLOGIST PROVIDED HISTORY: Of operative side while in recovery room. 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 Images are obtained with an overlying brace. There are faint vascular calcifications posteriorly. Periarticular and intra-articular soft tissue gas and fluid are related to the recent surgical procedure. [employer] Phone: [employer], [employer] Incoming R adiant Results From [employer] - 08/09/2020 3:43 PM EDT EXAMINATION: TWO XRAY VIEWS OF THE RIGHT KNEE 08/09/2020 3:30 pm COMPARISON: None. HISTORY: ORDERING SYSTEM PROVIDED HISTORY: postop eval TECHNOLOGIST PROVIDED HISTORY: Of operative side while in recovery room. 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 Images are obtained with an overlying brace. There are faint vascular calcifications posteriorly. Periarticular and intra-articular soft tissue gas and fluid are related to the recent surgical procedure. IMPRESSION: Recent postop changes right TKA [employer] Phone: [employer] Phone: EKG 12 LeadOrdered By: Elisa Ferraro on 07-16-2020 Atrial Rate 62 BPM [employer] Phone: P [place] 57 degrees [employer] Phone: P-R Interval 170 ms [employer] Phone: Q-T Interval 414 ms [employer] Phone: QRS Duration 74 ms [employer] Phone: QTc Calculation (Bazett) 420 ms [employer] Phone: R [place] 2 degrees [employer] Phone: T [place] 23 degrees [employer] Phone: Ventricular Rate 62 BPM [employer] Work Phone: Normal sinus rhythm Normal ECG No previous ECGs available [employer] Phone: Golden, Mhpn Incoming E kg Results From Tier 1 Performance - 07/16/2020 8:09 AM EDT Normal sinus rhythm Normal ECG No previous ECGs available [employer] Phone: [employer] Phone: MRSA DNA Probe, NasalOrdered By: Elisa Ferraro on 07-16-2020 Specimen Description .NASAL SWAB [facility] Work Phone: [facility] [employer] Phone: MRSA, DNA, NasalOrdered By: Elisa Ferraro on 07-16-2020 MRSA, DNA, Nasal NEGATIVE: MRSA DNA n ot detected by nucleic acid amplification. Normal NMRSAA [facility] [employer] Phone: Comment on above: Results should be used as an adjunct to nosocomial control efforts to identify patients needing enhanced precautions. The test is not intended to identify patients with staphylococcal infections. Results should not be used to guide or monitor treatment for MRSA infections. Result Comment: Results should be used as an adjunct to nosocomial control efforts to identify patients needing enhanced precautions. The test is not intended to identify patients with staphylococcal infections. Results should not be used to guide or monitor treatment for MRSA infections. Performed By: #### M RSANO #### [facility] [address] [place] [address] Author Agent: [place] [address] Author Agent: Jean Mo MD APTTon 07-15-2020 aPTT Coag (Bld) [Time] 32.6 s Normal 23.9-33.8 [facility] Comment on above: Result Comment: IV Heparin Therapy Range: 62.0-94.0 Performed By: #### C BC, BMPX #### [facility] [address] [place] [address] Author Agent: Preet Castillo MD APTTOrdered By: Elisa ojeda on 07-15-2020 aPTT Coag (Bld) [Time] 32.6 s [facility] [employer] Phone: Comment on above: IV Heparin Therapy Range: 62.0-94.0 [facility] [employer] Phone: CBC Auto DifferentialOrdered By: Elisa Ferraro on 07-15-2020 Absolute Eos # 0.35 [facility] Work Phone: Absolute Immature Granulocyte 0.01 [employer] Work Phone: Absolute Lymph # 1.38 [facility] Work Phone: Absolute Brooks # 0.73 amSTATZaldo Fostera [facility] Work Phone: Basophils (Bld) [#/Vol] 0.05 10*3/uL [employer] Work Phone: Basophils/100 WBC (Bld) 1 % 0 - 2 % [employer] Work Phone: Differential Type NOT REPORTED [employer] Work Phone: Eosinophils/100 WBC (Bld) 6 % High 1 - 4 % [employer] Work Phone: Hematocrit (Bld) [Volume fraction] 40.9 % 40.7 - 50.3 % [employer] Work Phone: Hemoglobin.gastrointe stinal spec 1 Ql (Stl) 14.1 g/dL 13.0 - 17.0 g/dL [employer] Work Phone: Immature granulocytes/100 WBC (Bld) 0 % 0 [employer] Work Phone: Interpretation and review of laboratory results Abnormal [employer] Phone: Lymphocytes/100 WBC (Bld) 24 % 24 - 43 % [employer] Work Phone: MCH (RBC) [Entitic mass] 32.1 pg 25.2 - 33.5 pg [employer] Work Phone: MCHC (RBC) [Mass/Vol] 34.5 g/dL 28.4 - 34.8 g/dL [employer] Phone: MCV (RBC) [Entitic vol] 93.2 fL 82.6 - 102.9 fL [employer] Phone: Monocytes/100 WBC (Bld) 13 % High 3 - 12 % [employer] Work Phone: NRBC Automated 0.0 0.0 per 100 WBC [employer] Phone: Platelet distribution width (Bld) [Ratio] 12.4 % 11.8 - 14.4 % [employer] Phone: Platelet Estimate NOT REPORTED [employer] Phone: Platelet mean volume (Bld) [Entitic vol] 10.4 fL 8.1 - 13.5 fL [employer] Phone: Platelets (Bld) [#/Vol] 135 10*3/uL Low [employer] Phone: RBC (Bld) [#/Vol] 4.39 10*6/uL 4.21 - 5.77 m/uL [employer] Phone: RBC (Bld) [#/Vol] NOT REPORTED [employer] Phone: Segmented neutrophils/100 WBC (Bld) 56 % 36 - 65 % [employer] Phone: Segs Absolute 3.30 [employer] Work Phone: WBC (Bld) [#/Vol] 5.8 10*3/uL [employer] Phone: WBC (Bld) [#/Vol] NOT REPORTED [employer] Phone: [employer] Work Phone: CBC with Diffon 07-15-2020 Abs. Basophil 0.05 k/uL Normal 0.00-0.20 [facility] Comment on above: Performed By: #### C NIKOLAI BMPX #### [facility] [address] [place] [address] Author Agent: Preet Castillo MD Abs.Imm.Granulocyte 0.01 k/uL Normal 0.00-0.30 [facility] Comment on above: Performed By: #### C NIKOLAI BMPX #### [facility] [place] [address] Author Agent: Preet Castillo MD Abs.Neutrophil (Seg) 3.30 k/uL Normal 1.50-8.10 [facility] Comment on above: Performed By: #### C BC, BMPX #### [facility] [address] [place] [address]. [place] [address] Author Agent: Preet Castillo MD Basophils/100 WBC (Bld) 1 % Normal 0-2 [facility] Comment on above: Performed By: #### C BC, BMPX #### [facility] [address] [place] [address] Author Agent: Preet Castillo MD Eosinophils (Bld) [#/Vol] 0.35 10*3/uL Normal 0.00-0.44 [facility] Comment on above: Performed By: #### C BC, BMPX #### [facility] [address] [place] [address]. [place] [address] Author Agent: Preet Castillo MD Eosinophils/100 WBC (Bld) 6 % High 1-4 [facility] Comment on above: Performed By: #### C BC, BMPX #### [facility] [address] [place] [address]. [place] [address] Author Agent: Preet Castillo MD Erythrocyte distribution width (RBC) [Ratio] 12.4 % Normal 11.8-14.4 [facility] Comment on above: Performed By: #### C BC, BMPX #### [facility] [address] [place] [address]. [place] [address] Author Agent: Preet Castillo MD Hematocrit (Bld) [Volume fraction] 40.9 % Normal 40.7-50.3 [facility] Comment on above: Performed By: #### C BC, BMPX #### [facility] [address] [facility] [place] [address] Author Agent: Preet Castillo MD Hemoglobin (Bld) [Mass/Vol] 14.1 g/dL Normal 13.0-17.0 [facility] Comment on above: Performed By: #### C BC, BMPX #### [facility] [address] [place] [address]. [place] [address] Author Agent: Preet Castillo MD Immature granulocytes/100 WBC (Bld) 0 % Normal 0 [facility] Comment on above: Performed By: #### C BC, BMPX #### [facility] [address] [place] [address]. [place] [address] Author Agent: Preet Castillo MD Lymphocytes (Bld) [#/Vol] 1.38 10*3/uL Normal 1.10-3.70 [facility] Comment on above: Performed By: #### C BC, BMPX #### [facility] [address] [place] [address]. [place] [address] Author Agent: Preet Castillo MD Lymphocytes/100 WBC (Bld) 24 % Normal 24-43 [facility] Comment on above: Performed By: #### C BC, BMPX #### [facility] [address] [place] [address]. [place] [address] Author Agent: Preet Castillo MD MCH (RBC) [Entitic mass] 32.1 pg Normal 25.2-33.5 [facility] Comment on above: Performed By: #### C BC, BMPX #### [facility] [place] [address] Author Agent: Preet Castillo MD MCHC (RBC) [Mass/Vol] 34.5 g/dL Normal 28.4-34.8 [facility] Comment on above: Performed By: #### C BC, BMPX #### [facility] [place] [address] Author Agent: Preet Castillo MD MCV (RBC) [Entitic vol] 93.2 fL Normal 82.6-102.9 [facility] Comment on above: Performed By: #### C BC, BMPX #### [facility] [place] [address] Author Agent: Preet Castillo MD Monocytes (Bld) [#/Vol] 0.73 10*3/uL Normal 0.10-1.20 [facility] Comment on above: Performed By: #### C NIKOLAI, BMPX #### [facility] [address] [place] [address]. [place] [address] Author Agent: Preet Castillo MD Monocytes/100 WBC (Bld) 13 % High 3-12 [facility] Comment on above: Performed By: #### C NIKOLAI, BMPX #### [facility] [address] [place] [address]. [place] [address] Author Agent: Preet Castillo MD Neutrophil (Seg) 56 % Normal 36-65 [facility] Comment on above: Performed By: #### C NIKOLAI, BMPX #### [facility] [address] [place] [address]. [place] [address] Author Agent: Preet Castillo MD NRBC Automated 0.0 per 100 WBC Normal 0.0 [facility] Comment on above: Performed By: #### C NIKOLAI, BMPX #### [facility] [place] [address] Author Agent: Preet Castillo MD Platelet mean volume (Bld) [Entitic vol] 10.4 fL Normal 8.1-13.5 [facility] Comment on above: Performed By: #### C BC, BMPX #### [facility] [address] [facility] [place] [address] Author Agent: Preet Castillo MD Platelets (Bld) [#/Vol] 135 10*3/uL Low 138-453 [facility] Comment on above: Performed By: #### C BC, BMPX #### [facility] [address] [facility] [place] [address] Author Agent: Preet Castillo MD RBC (Bld) [#/Vol] 4.39 10*6/uL Normal 4.21-5.77 [facility] Comment on above: Performed By: #### C BC, BMPX #### [facility] [address] [facility] [place] [address] Author Agent: Preet Castillo MD WBC (Bld) [#/Vol] 5.8 10*3/uL Normal 3.5-11.3 [facility] Comment on above: Performed By: #### C BC, BMPX #### [facility] [address] [facility] [place] [address] Author Agent: Preet Castillo MD Auto Diff Performed NOT REPORTED Normal [facility] Comment on above: Performed By: #### C BC, BMPX #### [facility] [address] [facility] [place] [address] Author Agent: Preet Castillo MD Platelet Estimate NOT REPORTED Normal [facility] Comment on above: Performed By: #### C BC, BMPX #### [facility] [address] [facility] [place] [address] Author Agent: Preet Castillo MD RBC morphology finding Nom (Bld) NOT REPORTED Normal [facility] Comment on above: Performed By: #### C BC, BMPX #### [facility] [place] [address] Author Agent: Preet Castillo MD WBC Morphology NOT REPORTED Normal [facility] Comment on above: Performed By: #### C BC, BMPX #### [facility] [address] [place] [address]. [place] [address] Author Agent: Preet Castillo MD Comp Metabolic Profon 2020 (cont.) Normal [facility] Comment on above: Result Comment: Aver age GFR for 70 or more years old: 75 mL/min/1.73sq m Chronic Kidney Disease: <60 mL/min/1.73sq m Kidney failure: <15 mL/min/1.73sq m eGFR calculated using average adult body mass. Additional eGFR calculator available at: http://www.Object Matrix/multiple_crcl_2012.htm Performed By: #### C BC, BMPX #### [facility] [place] [address] Author Agent: Preet Castillo MD Alkaline Phos 71 U/L Normal 40-129 [facility] Comment on above: Performed By: #### C BC, BMPX #### [facility] [address] [place] [address]. [place] [address] Author Agent: Preet Castillo MD BUN/CRE Ratio 41 High 9-20 [facility] Comment on above: Performed By: #### C BC, BMPX #### [facility] [place] [address] Author Agent: Preet Castillo MD GFR, Amer >60 Normal >60 [facility] Comment on above: Performed By: #### C BC, BMPX #### [facility] [address] [place] [address] Author Agent: Preet Castillo MD GFR,non Amer >60 Normal >60 [facility] Comment on above: Performed By: #### C BC, BMPX #### [facility] [address] [place] [address] Author Agent: Preet Castillo MD Protein [Mass/Vol] 6.7 g/dL Normal 6.4-8.3 [facility] Comment on above: Performed By: #### C BC, BMPX #### [facility] [address] [facility] [place] [address] Author Agent: Preet Castillo MD Urea nitrogen [Mass/Vol] 26 mg/dL High 8-23 [facility] Comment on above: Performed By: #### C BC, BMPX #### [facility] [address] [facility] [place] [address] Author Agent: Preet Castillo MD Albumin/Glob Ratio NOT REPORTED Normal 1.0-2.5 [facility] Comment on above: Performed By: #### C BC, BMPX #### [facility] [address] [facility] [place] [address] Author Agent: Preet Castillo MD Staging: NOT REPORTED Normal [facility] Comment on above: Performed By: #### C BC, BMPX #### [facility] [address] [facility] [place] [address] Author Agent: Preet Castillo MD Comp Metabolic ProfOrdered B y: Elisa Ferraro on 07-15-2020 Albumin [Mass/Vol] 4.1 g/dL Normal 3.5-5.2 [facility] Work Phone: Comment on above: Performed By: #### C BC, BMPX #### [facility] [address] [place] [address] Author Agent: Preet Castillo MD ALT [Catalytic activity/Vol] 12 U/L Normal 5-41 [facility] [employer] Phone: Comment on above: Performed By: #### C BC, BMPX #### [facility] [address] [place] [address] Author Agent: Preet Castillo MD Anion gap [Moles/Vol] 13 mmol/L Normal 9-17 [facility] [employer] Work Phone: Comment on above: Performed By: #### C BC, BMPX #### [facility] [address] [place] [address] Author Agent: Preet Castillo MD AST [Catalytic activity/Vol] 16 U/L Normal <40 [facility] Phone: Comment on above: Performed By: #### C BC, BMPX #### [facility] [address] [place] [address] Author Agent: Preet Castillo MD Bilirubin [Mass/Vol] 0.55 mg/dL Normal 0.3-1.2 [facility] [employer] Phone: Comment on above: Performed By: #### C BC, BMPX #### [facility] [address] [place] [address] Author Agent: Preet Castillo MD Calcium [Mass/Vol] 8.7 mg/dL Normal 8.6-10.4 [facility] [employer] Phone: Comment on above: Performed By: #### C BC, BMPX #### [facility] [address] [place] [address] Author Agent: Preet Castillo MD Chloride [Moles/Vol] 105 mmol/L Normal 98-107 [facility] Work Phone: Comment on above: Performed By: #### C NIKOLAI, BMPX #### [facility] [address] [place] [address] Author Agent: Preet Castillo MD CO2 [Moles/Vol] 21 mmol/L Normal 20-31 [facility] Work Phone: Comment on above: Performed By: #### C NIKOLAI, BMPX #### [facility] [address] [place] [address] Author Agent: Preet Catsillo MD Creatinine [Mass/Vol] 0.64 mg/dL Low 0.70-1.20 [facility] [employer] Work Phone: Comment on above: Performed By: #### C NIKOLAI, BMPX #### [facility] [address] [place] [address] Author Agent: Preet Castillo MD Glucose [Mass/Vol] 88 mg/dL Normal 70-99 [facility] Work Phone: Comment on above: Performed By: #### C NIKOLAI, BMPX #### [facility] [address] [place] [address] Author Agent: Preet Castillo MD Potassium [Moles/Vol] 4.7 mmol/L Normal 3.7-5.3 [facility] [employer] Work Phone: Comment on above: Performed By: #### C NIKOLAI, BMPX #### [facility] [address] [place] [address] Author Agent: Preet Castillo MD Sodium [Moles/Vol] 139 mmol/L Normal 135-144 [facility] Work Phone: Comment on above: Performed By: #### C BC, BMPX #### [facility] [address] [place] [address] Author Agent: Preet Castillo MD Comprehensive Metabolic Pane lOrdered By: Elisa Ferraro on 07-15-2020 Albumin/Globulin Ratio NOT REPORTED [employer] Phone: ALP (Bld) [Catalytic activity/Vol] 71 U/L 40 - 129 U/L [employer] Phone: Free PSA/Total PSA [Mass fraction] 6.7 g/dL 6.4 - 8.3 g/dL [employer] Phone: GFR >60 >60 mL/min [employer] Phone: GFR Non- >60 >60 mL/min [employer] Phone: GFR/1.73 sq M.predicted MDRD (S/P/Bld) [Vol rate/Area] [employer] Phone: Comment on above: Average GFR for 70 o r more years old: 75 mL/min/1.73sq m Chronic Kidney Disease: <60 mL/min/1.73sq m Kidney failure: <15 mL/min/1.73sq m eGFR calculated using average adult body mass. Additional eGFR calculator available at: http://www.iContainers.RxEye/multiple_crcl_2012.htm GFR/1.73 sq M.predicted MDRD (S/P/Bld) [Vol rate/Area] NOT REPORTED [employer] Phone: Interpretation and review of laboratory results Abnormal [employer] Phone: Urea nitrogen (BldV) [Mass/Vol] 26 mg/dL High 8 - 23 mg/dL [employer] Phone: Urea nitrogen/Creatinine (Bld) [Mass ratio] 41 High [employer] Phone: [employer] Phone: MRSA, DNA, Nasalon Specimen Description .NASAL SWAB Normal [facility] Comment on above: Performed By: #### M RSANO #### [facility] [address] [place] [address] Author Agent: Preet Castillo MD [facility] [address] [place], [place] [id number] Author Agent: Jean Mo MD PTon 07-15-2020 INR Coag (PPP) [Relative time] 1.8 {INR} Normal [facility] Comment on above: Result Comment: Non-therapeutic Range: INR = 0.9-1.2 Therapeutic Range: Moderate Anticoagulant Intensity: INR = 2.0-3.0 High Anticoagulant Intensity: INR = 2.5-3.5 Performed By: #### C BC, BMPX #### [facility] [address] [place] [address] Author Agent: Preet Castillo MD PT Coag (PPP) [Time] 20.8 s High 11.5-14.2 [facility] Comment on above: Performed By: #### C NIKOLAI, BMPX #### [facility] [address] [place] [address] Author Agent: Preet Castillo MD Protime-INROrdered By: Elisa Ferraro on 07-15-2020 INR Coag (Bld) [Relative time] 1.8 {INR} [facility] [employer] Phone: Comment on above: Non-therapeutic Range: INR = 0.9-1.2 Therapeutic Range: Moderate Anticoagulant Intensity: INR = 2.0-3.0 High Anticoagulant Intensity: INR = 2.5-3.5 Interpretation and review of laboratory results Abnormal [employer] Phone: PT Coag (PPP) [Time] 20.8 s High [facility] [employer] Phone: [facility] [employer] Work Phone: Sedimentation Rateon 021 Sedimentation Rate 11 mm Normal 0-20 [facility] Comment on above: Performed By: #### C BC, BMPX #### [facility] [address] [place], [place] [address] Author Agent: Preet Castillo MD Sedimentation RateOrdered By : Elisa Ferraro on 07-15-2020 Sed Rate 11 mm 0 - 20 mm [facility] [employer] Phone: [facility] [employer] Work Phone: TYPE AND SCREENOrdered By: Yvette Pedro on 07-15-2020 ABO/Rh Positive [facility] [employer] Phone: Arm Band Number [id number] [facility] Work Phone: Expiration Date 08/12/2020,2359 [facility] [employer] Work Phone: [facility] [employer] Work Phone: Type + Screenon 07-15-2020 Type + Screen Sample Expiration 08/12/2020,2359 Arm Band Number [id number] ABO/Rh(D) A POSITIVE Antibody Screen NEGATIVE Normal [facility] Comment on above: Performed By: #### T YS #### [facility] [address] [place], [place] [id number] Author Agent: Preet Castillo MD UA w/Reflex Cultureon 2020 Bilirubin, SemiQt,Ur Negative Normal NEG [facility] Comment on above: Performed By: #### U AX #### [facility] [address] [place] [address] Author Agent: Preet Castillo MD Blood, Urine Negative Normal NEG [facility] Comment on above: Performed By: #### U AX #### [facility] [address] [place] [address] Author Agent: Preet Castillo MD Clarity (U) CLEAR Normal CLEAR [facility] Comment on above: Performed By: #### U AX #### [facility] [address] [place] [address] Author Agent: Preet Castillo MD Color (U) YELLOW Normal YEL [facility] Comment on above: Performed By: #### U AX #### [facility] [address] [facility] [place] [address] Author Agent: Preet Castillo MD Glucose Ql (U) Negative Normal NEG [facility] Comment on above: Performed By: #### U AX #### [facility] [address] [facility] [place] [address] Author Agent: Preet Castillo MD Ketones Ql (U) Negative Normal NEG [facility] Comment on above: Performed By: #### U AX #### [facility] [address] [facility] [place] [address] Author Agent: Peret Castillo MD Leukocyte esterase Test strip Ql (U) Negative Normal NEG [facility] Comment on above: Performed By: #### U AX #### [facility] [address] [facility] [place] [address] Author Agent: Preet Castillo MD Nitrite,Ur Negative Normal NEG [facility] Comment on above: Performed By: #### U AX #### [facility] [address] [facility] [place] [address] Author Agent: Preet Castillo MD PH,Ur 5.5 Normal 5.0-8.0 [facility] Comment on above: Performed By: #### U AX #### [facility] [address] [facility] [place] [address] Author Agent: Preet Castillo MD Protein Ql (U) Negative Normal NEG [facility] Comment on above: Performed By: #### U AX #### [facility] [address] [facility] [place] [address] Author Agent: Preet Castillo MD Spec. [place],Ur 1.025 Normal 1.005-1.03 0 [facility] Comment on above: Performed By: #### U AX #### [facility]4 [facility] [place] [address] Author Agent: Preet Castillo MD Urobilinogen,Ur Normal Normal NORM [facility] Comment on above: Performed By: #### U AX #### [facility] [address] [place] [id number] Author Agent: Preet Castillo MD Comment NOT REPORTED Normal [facility] Comment on above: Performed By: #### U AX #### [facility] [address] [place] [id number] Author Agent: Preet Castillo MD Urinalysis Reflex to Culture Ordered By: Elisa Ferraro on 07-15-2020 Bilirubin Urine Negative NEGATIVE [facility] Work Phone: Color, UA YELLOW YELLOW [facility] Work Phone: Glucose, Ur Negative NEGATIVE [facility] Work Phone: Ketones Ql (U) Negative NEGATIVE [facility] Work Phone: Leukocyte esterase Test strip Ql (U) Negative NEGATIVE [facility] Work Phone: Nitrite, Urine Negative NEGATIVE [facility] Work Phone: pH, UA 5.5 [facility] Work Phone: Protein, UA Negative NEGATIVE [facility] Work Phone: Specific [place], UA 1.025 [facility] Work Phone: Turbidity UA CLEAR CLEAR [facility] Work Phone: Urinalysis Comments NOT REPORTED [facility] Work Phone: Urine Hgb Negative NEGATIVE [facility] Work Phone: Urobilinogen, Urine Normal Normal [facility] Work [facility]: [facility] Work Phone: CNOVon 08-13-2017 CNOV Office Visit (VASSFT) YANELIS NORIEGA ([id number]) 1945 [facility] Department08/13/17 11:45 AM CURT CHOWDHURY During your visit today, we recorded the following information about you: Pulse Respiration Blood pressure Weight 66/minute 16/minute 123/70 80.7 kg Height 1.689 Cameron Chowdhury MD 08/13/2017 12:05 PM [facility] Vascular [facility] A[facility] Department of Cardiovascular MedicineOUTPATIENT VISIT DATE August 13, 2017OUTPATIENT VISIT TYPENEWPRIMARY CARE PHYSICIAN:Blu Velez MD ([facility])[address] [facility], [place] [address]Dkuzb: [phone]: [phone] PHYSICIANBeabhilash Velez MD ([facility])[address] [facility] [id number] COMPLAINT:No chief complaint on file.HISTORY OF PRESENT ILLNESS:Yanelis Garcia Leann was referred for consultation by Dr. Velez. Opinions andrecommendations in this consultation will be transmitted back to the referringphysician by [facility] or via mail.Mr. 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 2010 which had beenassociated with a TIA due to paradoxical embolization from PFO.Nonsmoker.Denies significant leg edema.PAST MEDICAL HISTORYDiagnosis Date- Actinic keratosis- Anemia- Cataract- DVT (deep venous thrombosis) (HCC)- GERD (gastroesophageal reflux disease)- HTN (hypertension)- Hyperlipidemia- Leukopenia- Osteoarthritis- Smoking- Stroke (HCC)- Thrombocytopenia (HCC)- TIA (transient ischemic attack)PAST SURGICAL HISTORYProcedure Laterality Date- PAST SURGICAL HISTORY OF Arthroscopic knee- PAST SURGICAL HISTORY OF Cataract- PAST SURGICAL HISTORY OF Rotator cuff- PAST SURGICAL HISTORY OF HerniaSOCIAL HISTORYSocial HistorySubstance Use Topics- Smoking status: Former Smoker Packs/day: 2.00 Years: 5.00 Quit date: 10/11/1967- Smokeless tobacco: Never Used Comment: pt smoked until he was 21 years old then quit- Alcohol use Yes Comment: 3-4 beers dailyFAMILY HISTORYProblem Relation Age of Onset- Diabetes Mother- Stroke Mother- Lipids Mother- Hypertension Mother- Arthritis Father- Cancer Father- Colon Cancer Sister- Coronary Artery Disease Brother- Cancer Brother- Myesthenia Gravis [Other] [OTHER] Mother- HTN [Other] [OTHER] Mother- HYperlipidemia [Other] [OTHER] Mother- CHF [Other] [OTHER] Mother- Kidney removal [Other] [OTHER] Father- Dementia [Other] [OTHER] Father- Multiple myeloma [Other] [OTHER] BrotherALLERGIES:ALLERGIES Allergen Reactions- Iodine [Contrast Dy* Hives- Bactrim [Sulfametho* HivesMEDICATIONS:benazepri l (LOTENSIN) 20 mg tablet Take 20 mg by mouth once daily.traMADol (ULTRAM) 50 mg tablet Take 50 mg by mouth as needed.clobetasol (TEMOVATE) 0.05 % cream Apply 1 application to affected area asneeded.fluocinonide (LIDEX) 0.05 % cream Apply 1 application to affected area asneeded.warfarin 2 mg tablet Take 1 tablet by mouth once daily. 2mg/3mg Wed-Sunatorvastatin (LIPITOR) 10 mg ORAL tablet ONCE DAILYREVIEW OF SYSTEMS:GENERAL: no acute distressAll other ROS: negativeI personally interviewed, confirmed and edited the above information asobtained by others.PHYSICAL EXAMINATION:BP 123/70 (BP Site: Left Arm, BP Position: Sitting, BP Cuff Size: RegularAdult) Pulse 66 Resp 16 Ht 168.9 cm (5' 6.5 ) Wt 80.7 kg (178 lb) SpO2 96% BMI 28.30 kg/m?General appearance: well nourished, alert and cooperative individual, in noacute distress.Neck: no bruitsPulmonary: Lungs clear to auscultation bilaterally.Coronary: regular rate and regular rhythmLower Extremities: Feet and toes warmPalp DP pulses bilaterallyNo leg edema bilaterallynontenderCARDIO VASCULAR MEDICINE TESTING:I have personally reviewed the DUS LLE DVT.IMPRESSION/PLAN:Mr. Noriega is a 72 year old male with chronic left leg DVT dating back [id number].Given severity of complications associated with his last unprovoked VTE, Iwould advise against discontinuing anticoagulation. May undergo furtherevaluation with hematology for further evaluation.Consider changing coumadin to NOAC to ease anticoagulation.He may follow up as needed.Curt Chowdhury, MDReferring Provider: BLU VELEZ [[id number]]Allergies As of Date: 08/13/2017 Noted Allergy ReactionIODINE (CONTRAST DYE) 03/15/2010 4 - HivesBACTRIM (SULFAMETHOXAZOLE-TRIMETH* 06/11/2015 4 - HivesDate Reviewed: 08/13/2017Reviewed by: Curt Chowdhury - Fully AssessedPrimary Visit Diagnosis:Personal history of DVT (deep vein thrombosis) [Z86.718]Prescriptions as of 08/13/2017 Sig: BENAZEPRIL 20 MG TABLET Take 20 mg by mouth once ramon* TRAMADOL 50 MG TABLET Take 50 mg by mouth as needed. CLOBETASOL 0.05 % TOPICAL CRE* Apply 1 application to affect* FLUOCINONIDE 0.05 % TOPICAL C* Apply 1 application to affect* WARFARIN 2 MG TABLET Take 1 tablet by mouth once d* ATORVASTATIN 10 MG TABLET ONCE DAILYProblem List As Of Date 08/13/2017 Noted Resolved CHR SOLAR SKIN DAMAGE NOSx1 [L57.8] INVALID FOR* BENIGN NEOPLASM OF SKIN [216] INVALID FOR* Pain in joint, shoulder region [M25.519] INVALID FOR* Muscular wasting and disuse atrophy, not elsewh*INVALID FOR* Thrombocytopenia (HCC) [D69.6] INVALID FOR* Leukopenia [D72.819] INVALID FOR* Unintentional weight change [R68.89] INVALID FOR*Medications Discontinued During This Encounter benazepril 20 mg ORAL tablet 0 03/15/2010 08/13/2017 Class: Med Update Route: ORAL Sig: Disc: Dosage adjustment oxyCODONE-acetaminophen (PERCOCET) 5* 12/23/2015 08/13/2017 Class: Historical Med Route: ORAL Sig: Take 1 tablet by mouth every 8 hours as needed. Disc: Discontinued by PatientDisposition: Return if symptoms worsen or fail to improve.Follow-up and Disposition History RecordedEncounter Number: [id number] Status:Closed by CURT CHOWDHURY MD on 08/13/[address] [facility] PROGRESSon 08-13-2017 PROGRESS HNO ID: [id number] thor: Curt ChowdhurySer: (none)Author Type: PhysicianType: Progress NotesFiled: 08/13/2017 12:05 PMNote Text:Heart and Vascular [facility] and Arely [facility] Department of Cardiovascular MedicineOUTPATIENT VISIT DATE August 13, 2017OUTPATIENT VISIT TYPENEWPRIMARY CARE PHYSICIAN:Blu Velez MD ([facility])[address], [place] [address]Qlrmt: [phone]: [phone] PHYSICIANBenmary Velez MD ([facility])[address] [facility] [id number] COMPLAINT:No chief complaint on file.HISTORY OF PRESENT ILLNESS:Yanelis Noriega was referred for consultation by Dr. Velez. Opinions andrecommendations in this consultation will be transmitted back to thereferring physician by [facility] notes or via mail.Mr. 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 which had beenassociated with a TIA due to paradoxical embolization from PFO.Nonsmoker.Denies significant leg edema.PAST MEDICAL HISTORYDiagnosis Date- Actinic keratosis- Anemia- Cataract- DVT (deep venous thrombosis) (HCC)- GERD (gastroesophageal reflux disease)- HTN (hypertension)- Hyperlipidemia- Leukopenia- Osteoarthritis- Smoking- Stroke (HCC)- Thrombocytopenia (HCC)- TIA (transient ischemic attack)PAST SURGICAL HISTORYProcedure Laterality Date- PAST SURGICAL HISTORY OF Arthroscopic knee- PAST SURGICAL HISTORY OF Cataract- PAST SURGICAL HISTORY OF Rotator cuff- PAST SURGICAL HISTORY OF HerniaSOCIAL HISTORYSocial HistorySubstance Use Topics- Smoking status: Former Smoker Packs/day: 2.00 Years: 5.00 Quit date: 10/11/1967- Smokeless tobacco: Never Used Comment: pt smoked until he was 21 years old then quit- Alcohol use Yes Comment: 3-4 beers dailyFAMILY HISTORYProblem Relation Age of Onset- Diabetes Mother- Stroke Mother- Lipids Mother- Hypertension Mother- Arthritis Father- Cancer Father- Colon Cancer Sister- Coronary Artery Disease Brother- Cancer Brother- Myesthenia Gravis [Other] [OTHER] Mother- HTN [Other] [OTHER] Mother- HYperlipidemia [Other] [OTHER] Mother- CHF [Other] [OTHER] Mother- Kidney removal [Other] [OTHER] Father- Dementia [Other] [OTHER] Father- Multiple myeloma [Other] [OTHER] BrotherALLERGIES:ALLERGIES Allergen Reactions- Iodine [Contrast Dy* Hives- Bactrim [Sulfametho* HivesMEDICATIONS:benazepri l (LOTENSIN) 20 mg tablet Take 20 mg by mouth once daily.traMADol (ULTRAM) 50 mg tablet Take 50 mg by mouth as needed.clobetasol (TEMOVATE) 0.05 % cream Apply 1 application to affected area asneeded.fluocinonide (LIDEX) 0.05 % cream Apply 1 application to affected area asneeded.warfarin 2 mg tablet Take 1 tablet by mouth once daily. 2mg/3mg Wed-Sunatorvastatin (LIPITOR) 10 mg ORAL tablet ONCE DAILYREVIEW OF SYSTEMS:GENERAL: no acute distressAll other ROS: negativeI personally interviewed, confirmed and edited the above information asobtained by others.PHYSICAL EXAMINATION:BP 123/70 (BP Site: Left Arm, BP Position: Sitting, BP Cuff Size: RegularAdult) Pulse 66 Resp 16 Ht 168.9 cm (5' 6.5 ) Wt 80.7 kg (178lb) SpO2 96% BMI 28.30 kg/m?General appearance: well nourished, alert and cooperative individual, inno acute distress.Neck: no bruitsPulmonary: Lungs clear to auscultation bilaterally.Coronary: regular rate and regular rhythmLower Extremities: Feet and toes warmPalp DP pulses bilaterallyNo leg edema bilaterallynontenderCARDIO VASCULAR MEDICINE TESTING:I have personally reviewed the DUS LLE DVT.IMPRESSION/PLAN:Mr. Noriega is a 72 year old male with chronic left leg DVT dating backto 2010.Given severity of complications associated with his last unprovoked VTE, Iwould advise against discontinuing anticoagulation. May undergo furtherevaluation with hematology for further evaluation.Consider changing coumadin to NOAC to ease anticoagulation.He may follow up as needed.Curt Chowdhury MD Normal [facility] Vital Signs Date Time Vital Sign Value Performing Clinician Facility 12-13-2023 11:28-0400 Body height 172.7 cm Ashutosh Miller DPM Work Phone: [facility] 12-13-2023 11:28-0400 Body mass index (BMI) [Ratio] 27.37 kg/m2 Ashutosh Miller DPM Work Phone: [facility] 12-13-2023 11:28-0400 Body weight 81.65 kg Ashutosh Miller DPM Work Phone: [facility] 12-13-2023 11:28-0400 Diastolic blood pressure 80 mm[Hg] Ashutosh Miller DPM Work Phone: [facility] 12-13-2023 11:28-0400 Heart rate 85 /min Ashutosh Miller DPM Work Phone: [facility] 12-13-2023 11:28-0400 Systolic blood pressure 124 mm[Hg] Ashutosh Miller DPM Work Phone: [facility] 11-20-2023 13:48-0400 Body height 172.72 cm DO Blu Ball Work Phone: [facility] 11-20-2023 13:48-0400 Body mass index (BMI) [Ratio] 27.8 kg/m2 DO Blu Ball Work Phone: [facility] 11-20-2023 13:48-0400 Body temperature 97.8 [degF] DO Blu Ball Work Phone: [facility] 11-20-2023 13:48-0400 Body weight 83 kg DO Blu Ball Work Phone: [facility] 11-20-2023 13:48-0400 Diastolic blood pressure 78 mm[Hg] DO Blu Ball Work Phone: [facility] 11-20-2023 13:48-0400 Heart rate 75 /min DO Blu Ball Work Phone: [facility] 11-20-2023 13:48-0400 SaO2% (BldA) [Mass fraction] 97 % DO Blu Ball Work Phone: [facility] 11-20-2023 13:48-0400 Systolic blood pressure 128 mm[Hg] DO Blu Ball Work Phone: [facility] 08-10-2023 09:17-0400 Body height 172.72 cm [facility] 08-10-2023 09:17-0400 Body mass index (BMI) [Ratio] 27.8 kg/m2 [facility] 08-10-2023 09:17-0400 Body weight 83.23 kg [facility] 08-10-2023 09:17-0400 Diastolic blood pressure 66 mm[Hg] [facility] 08-10-2023 09:17-0400 Heart rate 66 /min [facility] 08-10-2023 09:17-0400 Respiratory rate 16 /min [facility] 08-10-2023 09:17-0400 Systolic blood pressure 117 mm[Hg] [facility] 05-10-2023 08:37-0400 Body height 172.72 cm [facility] 05-10-2023 08:37-0400 Body mass index (BMI) [Ratio] 28.5 kg/m2 [facility] 05-10-2023 08:37-0400 Body weight 85.27 kg [facility] 05-10-2023 08:37-0400 Diastolic blood pressure 68 mm[Hg] [facility] 05-10-2023 08:37-0400 Heart rate 76 /min [facility] 05-10-2023 08:37-0400 Respiratory rate 20 /min [facility] 05-10-2023 08:37-0400 Systolic blood pressure 129 mm[Hg] [facility] 04-19-2023 10:19-0500 Body height 172.72 cm [facility] 04-19-2023 10:19-0500 Body mass index (BMI) [Ratio] 27.4 kg/m2 [facility] 04-19-2023 10:19-0500 Body weight 81.81 kg [facility] 04-19-2023 10:19-0500 Diastolic blood pressure 82 mm[Hg] [facility] 04-19-2023 10:19-0500 Heart rate 74 /min [facility] 04-19-2023 10:19-0500 Respiratory rate 20 /min [facility] 04-19-2023 10:19-0500 Systolic blood pressure 125 mm[Hg] [facility] 02-08-2023 09:00-0500 Body height 172.72 cm [facility] 02-08-2023 09:00-0500 Body weight 83.91 kg [facility] 02-08-2023 09:00-0500 Diastolic blood pressure 71 mm[Hg] [facility] 02-08-2023 09:00-0500 Systolic blood pressure 141 mm[Hg] [facility] 12-21-2022 10:35-0400 Body height 170.[address] 12-21-2022 10:35-0400 Body mass index (BMI) [Ratio] 28.51 kg/m2 [address] 12-21-2022 10:35-0400 Body weight 82.[address] 11-09-2022 10:17-0400 Diastolic blood pressure 44 mm[Hg] Blu E Ball Work Phone: [facility] DO Work Phone: 11-09-2022 10:17-0400 Systolic blood pressure 122 mm[Hg] Blu E Ball Work Phone: [facility] DO Work Phone: 11-09-2022 09:57-0400 Diastolic blood pressure 92 mm[Hg] Blu E Ball Work Phone: [facility] DO Work Phone: 11-09-2022 09:57-0400 Systolic blood pressure 142 mm[Hg] Blu E Ball Work Phone: [facility] DO Work Phone: 11-09-2022 09:56-0400 Body height 170.18 cm Blu E Ball Work Phone: [facility] DO Work Phone: 11-09-2022 09:56-0400 Body mass index (BMI) [Ratio] 28.51 kg/m2 Blu E Ball Work Phone: [facility] DO Work Phone: 11-09-2022 09:56-0400 Body surface area Derived from formula 1.94 m2 Blu E Ball Work Phone: [facility] DO Work Phone: 11-09-2022 09:56-0400 Body weight 82.56 kg Blu E Ball Work Phone: [facility] DO Work Phone: 11-09-2022 09:56-0400 Diastolic blood pressure 98 mm[Hg] Blu E Ball Work Phone: [facility] DO Work Phone: 11-09-2022 09:56-0400 Heart rate 61 /min Blu E Ball Work Phone: [facility] [employer] 250 DO Work Phone: 11-09-2022 09:56-0400 Systolic blood pressure 150 mm[Hg] Blu E Ball Work Phone: [facility] [employer] DO Work Phone: 09-05-2022 10:00-0400 Body height 172.72 cm Blu Ball Other [facility] Other 09-05-2022 10:00-0400 Body mass index (BMI) [Ratio] 27.91 kg/m2 Blu Ball Other [facility] Other 09-05-2022 10:00-0400 Body weight 83.28 kg Blu Ball Other [facility] Other 09-05-2022 10:00-0400 Diastolic blood pressure 67 mm[Hg] Blu Ball Other [facility] Other 09-05-2022 10:00-0400 Respiratory rate 20 /min Blu Ball Other [facility] Other 09-05-2022 10:00-0400 Systolic blood pressure 128 mm[Hg] Blu Ball Other [facility] Other 08-30-2022 09:14-0400 Blood Pressure Location Clarisa Lue [facility] 08-30-2022 09:14-0400 Diastolic blood pressure 77 mm[Hg] Clarisa Lue [facility] 08-30-2022 09:14-0400 Heart rate 68 /min Clarisa Lue [facility] 08-30-2022 09:14-0400 Systolic blood pressure 125 mm[Hg] Clarisa Ibarra [facility] 08-22-2020 07:16-0400 Body temperature 98.1 [degF] Mamadou Adame MD Work Phone: [facility] Work Phone: 08-22-2020 07:16-0400 Diastolic blood pressure 64 mm[Hg] Mamadou Adame MD Work Phone: [facility] Work Phone: 08-22-2020 07:16-0400 Heart rate 67 /min Mamadou Adame MD Work Phone: [facility] Work Phone: 08-22-2020 07:16-0400 Respiratory rate 16 /min Mamadou Adame MD Work Phone: [facility] Work Phone: 08-22-2020 07:16-0400 SaO2% (BldA) [Mass fraction] 97 % Mamadou Adame MD Work Phone: [facility] Work Phone: 08-22-2020 07:16-0400 Systolic blood pressure 144 mm[Hg] Mamadou Adame MD Work Phone: [facility] Work Phone: 08-22-2020 05:53-0400 Body mass index (BMI) [Ratio] 27.37 kg/m2 Mamadou Adame MD Work Phone: [facility] Work Phone: 08-22-2020 05:53-0400 Body weight 81.65 kg Mamadou Adame MD Work Phone: [facility] Work Phone: 08-21-2020 11:09-0400 Body height 172.7 cm Mamadou Adame MD Work Phone: [facility] Work Phone: 08-10-2020 11:16-0400 Body temperature 98.4 [degF] Elisa Ferraro MD Work Phone: [facility] Work Phone: 08-10-2020 11:16-0400 Diastolic blood pressure 64 mm[Hg] Elisa Ferraro MD Work Phone: [facility] Work Phone: 08-10-2020 11:16-0400 Heart rate 73 /min Elisa Ferraro MD Work Phone: [facility] Work Phone: 08-10-2020 11:16-0400 Respiratory rate 16 /min Elisa Ferraro MD Work Phone: [facility] Work Phone: 08-10-2020 11:16-0400 SaO2% (BldA) [Mass fraction] 97 % Elisa Ferraro MD Work Phone: [facility] Work Phone: 08-10-2020 11:16-0400 Systolic blood pressure 144 mm[Hg] Elisa Ferraro MD Work Phone: [facility] Work Phone: 08-10-2020 04:10-0400 Body mass index (BMI) [Ratio] 28.4 kg/m2 Elisa Ferraro MD Work Phone: [facility] Work Phone: 08-10-2020 04:10-0400 Body weight 84.73 kg Elisa Ferraro MD Work Phone: [facility] Work Phone: 08-09-2020 08:01-0400 Body height 172.7 cm Elisa Ferraro MD Work Phone: [facility] Work Phone: 07-15-2020 09:25-0400 Body height 172.7 cm [facility] Work Phone: 07-15-2020 09:25-0400 Body mass index (BMI) [Ratio] 27.46 kg/m2 [facility] Work Phone: 07-15-2020 09:25-0400 Body temperature 98.6 [degF] [facility] Work Phone: 07-15-2020 09:25-0400 Body weight 81.92 kg [facility] Work Phone: 07-15-2020 09:25-0400 Diastolic blood pressure 57 mm[Hg] [facility] Work Phone: 07-15-2020 09:25-0400 Heart rate 69 /min [facility] Work Phone: 07-15-2020 09:25-0400 Respiratory rate 16 /min [facility] Work Phone: 07-15-2020 09:25-0400 SaO2% (BldA) [Mass fraction] 97 % [facility] Work Phone: 07-15-2020 09:25-0400 Systolic blood pressure 136 mm[Hg] Sta [facility] Work Phone: Encounters Encounter Date Encounter Type Care Provider Facility Start: 12-19-2023 End: 12-19-2023 ambulatory [facility] Work Phone: Start: 12-19-2023 End: 12-19-2023 Patient encounter procedure [facility] Work Phone: Start: 12-13-2023 End: 12-13-2023 Mauricio LAINEZM Work Phone: [facility] Start: 12-13-2023 End: 12-13-2023 Bamboo flowsheet Ashutosh Miller DPM Work Phone: [facility] Start: 12-13-2023 End: 12-13-2023 Patient encounter procedure Ashutosh Miller DPM Work Phone: [facility] Comment on above: Pain due to onychomy cosis of toenails of both feet (Primary Dx) Start: 12-13-2023 End: 12-13-2023 ambulatory ASHUTOSH MILLER Not Available Start: 11-20-2023 End: 11-20-2023 ambulatory DO Blu Velez Work Phone: [facility] Work Phone: Start: 11-20-2023 End: 11-20-2023 Patient encounter procedure DO Blu Velez Work Phone: [facility] Work Phone: Start: 10-04-2023 End: 10-04-2023 ambulatory ASHUTOSH MILLER Not Available Start: 09-12-2023 End: 09-12-2023 ambulatory DO Blu Velez Work Phone: [facility] Work Phone: Start: 09-12-2023 End: 09-12-2023 Patient encounter procedure DO Blu Velez Work Phone: [facility] Work Phone: Start: 09-12-2023 End: 09-12-2023 Patient encounter procedure DO Blu Ball Work Phone: [facility] Start: 09-12-2023 End: 09-12-2023 ambulatory DO Blu Velez Work Phone: [facility] Work Phone: Start: 08-10-2023 End: 08-10-2023 ambulatory [facility] Work Phone: Start: 08-10-2023 End: 08-10-2023 Patient encounter procedure [facility] Work Phone: Start: 07-19-2023 End: 07-19-2023 ambulatory ASHUTOSH MILLER Not Available Start: 07-17-2023 Non-patient / Non-visit [facility] Work Phone: Start: 05-10-2023 End: 05-10-2023 ambulatory ASHUTOSH MILLER Not Available Start: 05-10-2023 End: 05-10-2023 ambulatory [facility] Work Phone: Start: 05-10-2023 End: 05-10-2023 Patient encounter procedure [facility] Work Phone: Start: 04-19-2023 End: 04-19-2023 ambulatory [facility] Work Phone: Start: 04-19-2023 End: 04-19-2023 Patient encounter procedure [facility] Work Phone: Start: 04-11-2023 End: 04-11-2023 ambulatory [facility] Work Phone: Start: 04-11-2023 End: 04-11-2023 Patient encounter procedure [facility] Work Phone: Start: 03-26-2023 End: 03-26-2023 ambulatory [facility] Ambulatory Start: 03-26-2023 Patient encounter procedure [facility]- Start: 03-01-2023 End: 03-01-2023 ambulatory ASHUTOSH MILLER Not Available Start: 02-08-2023 End: 02-08-2023 Patient encounter procedure [facility] Work Phone: Start: 01-30-2023 End: 01-30-2023 ambulatory Blu Velez Other [employer] Other Start: 01-30-2023 Telephone encounter [facility] Start: 12-21-2022 End: 12-21-2022 Subsequent hospital visit by physician Salena Clemons Echo/Vasc Room 2 [facility] Comment on above: Abnormal echocardiog minal; Cerebrovascular accident (CVA), unspecified mechanism (CMS/HCC) Start: 12-21-2022 End: 12-21-2022 ambulatory BLU VELEZ [facility] Start: 11-16-2022 End: 11-16-2022 ambulatory Blu Velez Other [employer] Other Start: 11-16-2022 Telephone encounter [facility] Start: 11-14-2022 End: 11-14-2022 ambulatory Blu Velez Other [employer] Other Start: 11-14-2022 Nursing evaluation o f patient and report [facility] Start: 11-09-2022 Office consultation new/estab patient 60 min Blu Velez Work Phone: [facility] 250 DO Work Phone: Start: 11-09-2022 Patient encounter procedure Blu Velez Work Phone: [facility] 250 DO Work Phone: Start: 11-09-2022 ambulatory [facility] Facility :[facility] Start: 11-07-2022 ambulatory [facility] Facility :[facility] Start: 11-03-2022 End: 11-03-2022 ambulatory Blu Velez Other [employer] Other Start: 11-03-2022 Telephone encounter [facility] Start: 10-20-2022 End: 10-20-2022 ambulatory Blu Velez Other [employer] Other Start: 10-20-2022 Telephone encounter [facility] Start: 09-05-2022 End: 09-05-2022 ambulatory Blu Velez Other [employer] Other Start: 09-05-2022 Office outpatient vi sit 25 minutes [facility] Start: 08-30-2022 End: 08-31-2022 ambulatory Clarisa Ibarra Facility:[facility] Start: 08-30-2022 End: 08-30-2022 Patient encounter procedure Clarisa Ibarra [facility] Start: 02-21-2022 End: 02-21-[address] BLU VELEZ Facility:[facility] Start: 02-07-2022 Adult health examination Gerber Velez Other [employer] Other Start: 02-07-2022 Encounter for genera l adult medical examination without abnormal findings Blu Velez Other [employer] Other Start: 01-23-2022 End: 01-24-[address] BLU VELEZ Facility:[facility] Start: 2022 End: 01-12-2022 ambulatory Clarisa Ibarra Facility:[facility] [place] Start: 11-21-2021 End: 11-22-[address] JULIANA SMALLWOOD JR Facility:[facility] Start: 05-27-2021 End: 06-24-2021 ambulatory SHAIKH Tara VIERA Facility:[facility] Start: 04-26-2021 End: 05-26-2021 ambulatory SHAIKH Tara VIERA Facility:[facility] Start: 03-29-2021 End: 04-25-2021 ambulatory SHAIKH Tara VIERA Facility:[facility] Start: 03-01-2021 End: 03-28-2021 ambulatory SEAN AVILA Facility:[facility] Start: 10-29-2020 End: 10-29-2020 Encounter for other preprocedural examination Blu Velez Other [employer] Other Start: 10-29-2020 End: 10-29-2020 Pre-procedure evaluation check Blu Velez Other [facility] [employer] Other Start: 08-21-2020 End: 08-22-2020 Evaluation and management of inpatient ARDEN MAHARAJ [facility] Start: 08-21-2020 End: 08-22-2020 Evaluation and management of inpatient Mamadou Adame MD Work Phone: [facility] Comment on above: Hemarthrosis of righ t knee (Primary Dx); S/P total knee arthroplasty, right Start: 08-09-2020 End: 08-10-2020 ambulatory ELISA FERRARO [facility] Start: 08-09-2020 End: 08-10-2020 Subsequent hospital visit by physician Elisa Ferraro MD Work Phone: [facility] Start: 07-15-2020 End: 07-20-2020 ambulatory BLU Warner VELEZ [facility] Start: 07-15-2020 End: 07-19-2020 Subsequent hospital visit by physician Tabby Cortes Rm 1 [facility] PRE-ADMIT TESTING Start: 08-13-2017 End: 08-14-2017 Ambulatory CURT CHOWDHURY [facility] [place] Procedures Date Procedure Procedure Detail Performing Clinician Start: 09-12-2023 X-ray of left knee DO Blu Velez Work Phone: Start: 12-21-2022 TRANSTHORACIC ECHO (TTE) LIMITED ADENIKE VELEZ Start: 12-21-2022 Echo transthorc r-t 2d w/wo m-mode rec f-up/lmtd Teo Johnson MD Work Phone: Start: 11-21-2021 PSA screening SHAIKH MAXIMILIANO Comment on above: Performed By: #### PSAD #### [facility] [address] [place] [address] Dr. Tisha John Start: 08-22-2020 BASIC METABOLIC PANEL W/ REFLEX TO MG FOR LOW K Rachel Mclean SHEAR OPERATOR HELPER - RN COMPLEX CARE Work Phone: Start: 08-22-2020 Blood count complete automated Rachel A nn Waterhouse SHEAR OPERATOR HELPER - RN COMPLEX CARE Work Phone: Start: 08-21-2020 Blood count complete auto&auto difrntl wbc Arden Maharaj DO Work Phone: Start: 08-10-2020 Prothrombin time Elisa Ferraro MD Work Phone: Start: 08-09-2020 Radiologic examination knee 1/2 views Elisa Ferraro MD Work Phone: Start: 08-09-2020 End: 08-09-2020 Arthrp kne condyle&platu medial&lat compartments Elsia Ferraro MD Work Phone: Start: 08-09-2020 Blood count platelet automated Elisa acosta MD Work Phone: Start: 07-15-2020 Antibody screen Sta 1 Start: 07-15-2020 Iadna s aureus methicillin resist amp probe tq Elisa Ferraro MD Work Phone: Start: 07-15-2020 Urnls dip stick/tablet rgnt auto w/o microscopy Elisa Ferraro MD Work Phone: Start: 07-15-2020 Ecg routine ecg w/least 12 lds i&r only Elisa Ferraro MD Work Phone: Start: 07-15-2020 Blood typing serologic abo Bari Pedro MD Work Phone: Start: 07-15-2020 Comprehensive metabolic panel Elisa evangelista MD Work Phone: Start: 12-25-2019 Cystoscopy Clarisa Lue Start: 11-25-2015 Preoperative cardiovascular examination Blu Ball Other Start: 06-01-2015 Screening for malignant neoplasm of colon Blu Ball Other Start: 09-23-2013 Screening for malignant neoplasm of prostate Blu Ball Other Arthroplasty of knee Clarisa L ue Arthroplasty of knee Benjami n E Ball Work Phone: Arthroscopy of knee Clarisa hylton Cataract surgery Blu Velez Work Phone: Colonoscopy Clarisa Ibarra Depression screening Adenike Velez Other Esophagogastroduodenoscopy K felicitas Ibarra H/O: artificial joint Benjam in [place] Other Hernia repair Clarisa Ibarra Hernia repair Blu Rodríguez l Work Phone: History of operative procedure on knee History of left knee replacement DO Blu Velez Work Phone: Operative procedure on knee Blu Velez Work Phone: Procedure on back Blu Velez Work Phone: Repair of musculoten dinous cuff of shoulder Clarisa Ibarra Repair of shoulder Blu Velez Work Phone: Screening for malign ant neoplasm of prostate Blu Velez Other Total colonoscopy Blu Velez Work Phone: Comment on above: 2020; Plan of Treatment Date Care Activity Detail Author Start: 02-21-2024 End: 02-21-2024 Patient encounter procedure 02/21/2024 11:30 AM EST Procedure Visit [facility] [address] [place] [address] Ashutosh Miller DPM [address] [address] [facility] Start: 12-13-2023 End: 12-13-2023 Patient encounter procedure 12/13/2023 11:30 AM EDT Procedure Visit [facility] [address] [place] [id number] Ashutosh Miller DPM [address] [address] Pain due to onychomycosis of toenails of both feet (Primary Dx) [facility] Comment on above: Pain due to onychomy cosis of toenails of both feet (Primary Dx) Start: 10-28-2023 Influenza vaccination Influenza Vacc ine (#1) [facility] Start: 09-12-2023 Pelvis X-ray XR pelvis 1-2V [facility] Start: 09-12-2023 X-ray of left knee XR knee LT 3V - NOT FOR ER USE [facility] Start: 09-12-2023 XR Knee - left 3 Views [facility] Start: 09-12-2023 XR Pelvis 1 or 2 Views [facility] Start: 01-24-2023 COVID-19 Vaccine (4 - Pfizer series) COVID-19 Vaccine (4 - Pfizer series) [facility] Start: 12-21-2022 ECHO, Provider: CHAGO WATKINS [facility] 01,[id number], Status: Pen, Time: 10:45 AM ECHO, Provider: JUDY [facility] 01,[id number], Status: Pen, Time: 10:45 AM -[facility] 250 DO Work Phone: Start: 10-27-2022 Influenza vaccination Influenza Vacc ine (#1) [facility] Start: 08-22-2021 Creatinine measurement Creatinine mo [employer] Phone: Start: 08-22-2021 Potassium monitoring Potassium monit [employer] Phone: Start: 07-15-2021 Creatinine measurement Creatinine mo [employer] Phone: Start: 07-15-2021 Potassium monitoring Potassium monit [employer] Phone: Start: 10-27-2020 Influenza vaccination Flu vacc ine (Season Ended) [employer] Phone: Start: 08-09-2020 End: 08-09-2020 Admission to same day surgery center 08/09/2020 Surgery IP Unit Elisa Ferraro MD [address] [facility]/ [place] [address] [phone] RIGHT KNEE TOTAL ARTHROPLASTY- DEPUY [facility] Comment on above: RIGHT KNEE TOTAL ART HROPLASTY- DEPUY Start: 08-09-2020 End: 08-09-2020 Anesthesia consultation 08/09/2020 Anesthesia Event IP Unit Tatyana Henriquez MD [address] [place] [address] [phone] [facility] Start: 08-09-2020 Subsequent hospital visit by physician 08/09/2020 Hospital Encounter IP Unit Elisa Ferraro MD [address] [facility]/ [place] [address] [phone] [facility] Start: 07-15-2020 Annual Wellness Visi t (AWV) Annual Wellness Visit (AWV) [employer] Phone: Start: 07-10-2017 Pneumococcal Vaccine : 65+ Years (2 - PCV) Pneumococcal Vaccine: 65+ Years (2 - PCV) [facility] Start: 2010 Pneumococcal 65+ yea rs Vaccine (1 of 1 - PPSV23) Pneumococcal 65+ years Vaccine (1 of 1 - PPSV23) [employer] Phone: Start: 1995 Screening for malign ant neoplasm of colon Colon cancer screen colonoscopy [employer] Phone: Start: 1995 Shingles Vaccine (1 of 2) Shingles Vaccine (1 of 2) [employer] Phone: Start: 1995 Zoster Vaccines (1 of 2) Zoste r Vaccines (1 of 2) [facility] Start: 1967 DTaP/Tdap/Td Vaccine s (1 - Tdap) DTaP/Tdap/Td Vaccines (1 - Tdap) [facility] Start: 01-12-1964 DTaP/Tdap/Td vaccine (1 - Tdap) DTaP/Tdap/Td vaccine (1 - Tdap) [employer] Phone: Start: 1963 Hepatitis C screening Hepatitis C [facility] Start: 1955 Lipid panel Lipid screen [facility] Work Phone: Start: 1945 Abdominal aortic aneurysm screening AAA screen [facility] Work Phone: Start: 1945 Hepatitis C screening Hepatitis C sc dora [facility] Work Phone: Start: 1945 Lipid panel Lipid Panel [facility] Start: 1945 Medicare Annual Well ness Visit Medicare Annual Wellness Visit (AWV) [facility] Fibrin D-dimer [Presence] in Platelet poor plasma by Latex agglutination [facility] Oxygen therapy [Mini [facility] Data Set] [employer] Phone: Comment on above: Daily until disconti nued starting 08/09/2020 Daily until disconti nued starting 08/21/2020 PROTIME-INR PROTIME-INR Lab Routine Daily until discontinued starting 08/10/2020, 1 completed [employer] Phone: Comment on above: Daily until disconti nued starting 08/10/2020, 1 completed Spirometry panel Incentive abdiel metry Respiratory Care Routine Every 2hr while awake until discontinued starting 08/09/2020 [employer] Phone: Comment on above: Every 2hr while awak e until discontinued starting 08/09/2020 End: 12-21-2022 US Heart Transthoracic [facility] Service Area Work Phone: Comment on above: Once for 1 Occurrenc es starting 12/21/2022 until 12/21/2022 End: 08-21-2020 Wound Culture Wound Culture Microbiology Routine One Time for 1 Occurrences starting 08/21/2020 until 08/21/2020 [employer] Phone: Comment on above: One Time for 1 Occur rences starting 08/21/2020 until 08/21/2020 End: 08-21-2020 Wound Gram stain Wound Gram stain Microbiology Routine One Time for 1 Occurrences starting 08/21/2020 until 08/21/2020 [facility] Work Phone: Comment on above: One Time for 1 Occur rences starting 08/21/2020 until 08/21/2020 XR Chest 2 Views [facility] Immunizations Immunization Date Immunization Notes Care Provider Fa cility 12-19-2023 influenza, high dose seasonal, preservative-free [facility] 11-26-2022 influenza virus vaccine, unspecified formulation Ashutosh Miller M Work Phone: [facility] 11-14-2022 influenza virus vaccine, unspecified formulation [facility] 11-14-2022 influenza, high dose seasonal, preservative-free Blu Velez Other [facility] [employer] Other 12-01-2021 influenza virus vaccine, split virus (incl. purified surface antigen) Blu Velez Other [employer] Other 12-01-2021 influenza virus vaccine, unspecified formulation [facility] 11-26-2021 influenza virus vaccine, unspecified formulation [address] Work Phone: 11-15-2021 SARS-CoV-2 (COVID-19 ) [id number] Clarisa Ibarra [facility] 11-22-2020 SARS-CoV-2 (COVID-19 ) mRNA BNT-162b2 vax Clarisa Ibarra [facility] Comment on above: Result Comment: 2021: [id number] 11-12-2020 influenza virus vaccine, split virus (incl. purified surface antigen) Blu Velez Other [employer] Other 11-12-2020 influenza virus vaccine, unspecified formulation [facility] 04-18-2020 COVID-19, Pfizer, PF , 30mcg/0.3mL Sta 1 [facility] Comment on above: Result Comment: 2021: [id number] 03-28-2020 COVID-19, Pfizer, PF , 30mcg/0.3mL Sta 1 [facility] Comment on above: Result Comment: 2021: [id number] 11-10-2019 influenza virus vaccine, split virus (incl. purified surface antigen) Blu Velez Other [employer] Other 11-10-2019 influenza virus vaccine, unspecified formulation [facility] 12-09-2018 influenza virus vaccine, split virus (incl. purified surface antigen) Blu Velez Other [employer] Other 12-09-2018 influenza virus vaccine, unspecified formulation [facility] 11-13-2017 influenza virus vaccine, split virus (incl. purified surface antigen) Blu Velez Other [employer] Other 11-13-2017 influenza virus vaccine, unspecified formulation Clarisa Lue [facility] 11-13-2017 Seasonal trivalent influenza vaccine, adjuvanted, preservative free Blu Velez Work Phone: [facility] [employer] 250 DO Work Phone: 01-15-2017 influenza virus vaccine, unspecified formulation Clarisa Lue [facility] 01-15-2017 influenza, injectabl e, quadrivalent, contains preservative Blu Velez Work Phone: [facility] [employer] 250 DO Work Phone: 12-13-2016 influenza virus vaccine, split virus (incl. purified surface antigen) Blu Velez Other [facility] [employer] Other 12-13-2016 influenza virus vaccine, unspecified formulation [facility] 07-10-2016 pneumococcal polysaccharide vaccine, 23 valent Clarisa Ibarra [facility] 01-20-2015 pneumococcal conjuga te vaccine, 13 valent Blu Velez Other [facility] 01-20-2015 pneumococcal Conjuga te, unspecified formulation; Translations: [Need for prophylactic vaccination against Streptococcus pneumoniae (pneumococcus)] Blu Velez Other [facility] [employer] Other 12-10-2014 influenza virus vaccine, split virus (incl. purified surface antigen) Blu Velez Other [facility] [employer] Other 12-10-2014 influenza virus vaccine, unspecified formulation [facility] Payers Date Payer Category Payer Self-pay [id number] 2023 Private Health Insurance [place] [id number] 2022 Unknown 2018 Medicare [id number] 2009 Medicare [id number] 1959 Medicare [id number] 1959 Private Health Insurance [facility] [id number] .[id number] 1945 Unknown [id number] 2.16.840.1.533078.3.579.2 .177 1945 Unknown [id number] 2.16.840.1.524528.3.579.2 .177 1945 Unknown [id number] 2.16.840.1.063916.3.579.2 .177 1945 Unknown [id number] 2.16.840.1.178692.3.579.2 .593 1945 Unknown [id number] 2.16.840.1.791652.3.579.2 .593 1945 Unknown [id number] 2.16.840.1.480461.3.579.2 .593 1945 Unknown [id number] 2.16.840.1.213120.3.579.2 .593 1945 Unknown [id number] 2.16.840.1.113825.3.579.2 .593 1945 Unknown [id number] 2.16.840.1.698598.3.579.2 .593 1945 Unknown [id number] 2.16.840.1.940438.3.579.2 .593 1945 Unknown [id number] 2.16.840.1.702553.3.579.2 .727 1945 Unknown [id number] 2.16.840.1.683034.3.579.2 .727 1945 Unknown [id number] 2.16.840.1.582654.3.579.2 .356 1945 Unknown [id number] 2.16.840.1.442517.3.579.2 .356 1945 Unknown [id number] 2.16.840.1.240180.3.579.2 .1244 1945 Unknown [id number] 2.16.840.1.940606.3.579.2 .1246 1945 Unknown [id number] 2.16.840.1.574893.3.579.2 .1259 1945 Unknown [id number] 2.16.840.1.062438.3.579.2 .1259 1945 Unknown [id number] 2.16.840.1.629287.3.579.2 .1259 1945 Unknown [id number] 2.16.840.1.291426.3.579.2 .1259 1945 Unknown [id number] 2.16.840.1.561780.3.579.2 .1259 Unknown [id number] 2.16.840.1.653038.3.579.2 .531 Social History Date Type Detail Facility Start: 07-15-2020 End: 03-01-2023 Tobacco smoking status NHIS Former smoker [facility] End: 02-26-1965 History of tobacco use Current smoker [employer] Start: 07-15-2020 End: 03-01-2023 Tobacco use and exposure Never used [employer] Start: 07-15-2020 End: 12-13-2023 Alcohol intake Current drinker of alcohol (finding) [employer] Phone: Start: 07-15-2020 End: 10-04-2023 Alcohol intake [employer] Phone: Comment on above: 5-6 beers daily; 2-3 servings a day; quit 1964; Start: 1945 Sex Assigned At Not on file [employer] Phone: Start: 12-11-2022 End: 12-21-2022 Exposure to SARS-CoV-2 (event) Not sure [employer] Tobacco smoking status Never [facility] Start: 03-01-2023 End: 10-04-2023 Sex Assigned At Male [facility] Tobacco smoking stat us NHIS Tobacco smoking consumption unknown [facility] Work Phone: Start: 02-08-2023 End: 02-08-2023 Tobacco smoking status NHIS Never smoked tobacco (finding) [facility] Start: 1945 Sex Assigned At Male F [facility] History of tobacco use Cigarette Smoker [facility] How often to you hav e a drink containing alcohol? 4 or more times a week [facility] How many standard drinks containing alcohol do you have on a typical day? 3 or 4 [facility] How often do you hav e 6 or more drinks on 1 occasion? Never [facility] Start: 03-01-2023 Alcohol Comment caffeine intak e: more than 4 cups per day [facility] Medical Equipment Procedure Code Equipment Code Equipment Origin al Text Equipment Identifier Dates Upcharge Knee Primary Attune Aox Insert Depuy [employer]ynthes [id number] Start: 08-09-2020 Cement Bne 40gm Full Dose Pmma W/O Antibio Hi Visc N Radpq [id number] Start: 08-09-2020 Component Pat Ovk71tt Knee Poly Anuel Medialized Nayla Attune [id number] Start: 08-09-2020 Baseplate Tib Sz 7 Fix Bear [employer]uel [employer] [id number] Start: 08-09-2020 Component Fem Sz 7 R Knee Post Stbl Anuel [employer] [id number] Start: 08-09-2020 Insert Tib Sz 7 Thk7mm Knee Post Stbl Fix Bear [employer]une [id number] Start: 08-09-2020 Functional Status Date Assessment Result Facility 08-30-2022 Functional Status N/A [facility] Clinical Notes 07-15-2020 to 12-13-2023 Ashutosh Miller, [place] - 12/13/2023 11:30 AM EDT Note Date & Type Note Facility 12-13-2023 History of Presen t illness Narrative Patient: Yanelis Noriega : 1945 PCP: Blu Velez MD SUBJECTIVE This is a 78 y.o. male that presents today with a CC of elongated, thick nails. Pt states nails have been elongated and thick for many years and cause pain with ambulation in shoegear. Pt has tried previous treatment with minimal relief. Pt presents today for nail care and treatment. Patient has history of xerosis to bilateral feet Allergies: Allergies Allergen Reactions Iodinated Contrast Media Hives and Itching Iodine Unknown Sulfa Antibiotics Hives and Unknown Past Medical History: Past Medical History: Diagnosis Date Acute deep vein thrombosis of distal leg, left ([facility]) 2010 BPH (benign prostatic hyperplasia) Colon polyp ETD (Eustachian tube dysfunction), left GERD (gastroesophageal reflux disease) HLD (hyperlipidemia) ([facility]) HTN (hypertension) ([facility]) Hx-TIA (transient ischemic attack) Lumbar spondylosis Sensorineural hearing loss, bilateral Tinnitus, bilateral Medications: Current Outpatient Medications: amLODIPine (Norvasc) 5 MG tablet, , Disp: , Rfl: apixaban (Eliquis) 2.5 MG tablet, 2.5 mg, Disp: , Rfl: Ascorbic Acid (vitamin C) 1000 MG tablet, Take 1,000 mg by mouth in the morning., Disp: , Rfl: aspirin 81 MG EC tablet, Take 81 mg by mouth in the morning., Disp: , Rfl: atorvastatin (Lipitor) 10 MG tablet, Take 10 mg by mouth in the evening, Disp: , Rfl: benazepril (Lotensin) 20 MG tablet, Take 20 mg by mouth in the evening, Disp: , Rfl: hydroCHLOROthiazide (HYDRODiuril) 12.5 MG tablet, Take 1 tablet by mouth in the morning., Disp: , Rfl: Social History: Social History Socioeconomic History Marital status: Spouse name: Not on file Number of children: Not on file Years of education: Not on file Highest education level: Not on file Occupational History Not on file Tobacco Use Smoking status: Former Types: Cigarettes Smokeless tobacco: Never Vaping Use Vaping status: Unknown Substance and Sexual Activity Alcohol use: Yes Comment: caffeine intake: more than 4 cups per day Drug use: Defer Sexual activity: Defer Other Topics Concern Not on file Social History Narrative Not on file Social Drivers of Health Financial Resource Strain: Not on file Food Insecurity: Not on file Transportation Needs: Not on file Physical Activity: Not on file Stress: Not on file Social Connections: Not on file Intimate Partner Violence: Not on file Housing Stability: Not on file ROS: General: denies fever, chills, fatigue, malaise OBJECTIVE LE EXAM: DERM: Elongated thick yellow crumbly nails digits 1 through 10. Positive hair growth b/l feet. Negative Dry and scaly skin noted to bilateral feet ankles VASC: Positive palpable pedal pulses bilaterally NEURO: Gross sensation intact to bilateral feet ORTHO: Positive pain on palpation to nails 1 through 10 ASSESSMENT 1. Pain due to onychomycosis of toenails of both feet PLAN Discussed proper foot care with patient today. Debride nails in length and thickness digits 1 through 10 Patient education on condition and treatment of condition. Ashutosh Miller DPM documented in this encounter 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 They are also encouraged to continue exercise to achieve/maintain a normal BMI. Aug, Elevated cholesterol (ICD-10 - E78.00) Aug, Atherosclerotic cerebrovascular disease (ICD-10 - I67.2) Continue ASA and Statin therapy Continue AC w/ Eliquis No focal abnormalities noted Continue secondary prevention measures Aug, Hx of deep venous thrombosis (ICD-10 - Z86.718) Continue lifelong AC due to unprovoked DVT Aug, Hx of TIA (transient ischemic attack) and stroke (ICD-10 - Z86.73) Continue secondary prevention measures Monitor for focal neurologic deficits Aug, Mild intermittent asthma without complication (ICD-10 - J45.20) No ER visits for AE asthma Aware to use ARIEL as needed Avoid triggers, irritants ARIEL as needed for allergies, weather changes and acute respiratory illnesses Aug, Recurrent occipital headache (ICD-10 - R51.9) ROM exercises w/ cervical spine and shoulders Heat/ice and Tylenol as needed PT for cervical traction and HEP Aug, Blurred vision, bilateral (ICD-10 - H53.8) 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 The prostate may get bigger as a man gets older. The condition is not caused by cancer. The prostate is a walnut-sized gland that is involved in the production of semen. It is located in front of the rectum and below the bladder. The bladder stores urine. The urethra carries stored urine ou t of the body. An enlarged prostate can press on the urethra. This can make it harder to pass urine. The buildup of urine in the bladder can cause infection. Back pressure and infection may progress to bladder damage and kidney (renal) failure. What are the causes? This condition is part of the normal aging process. However, not all men develop problems from thiscondition. If the prostate enlarges away from the urethra, urine flow will not be blocked. If it enlarges toward the urethra and compresses it, there will be problems passing urine. What increases the risk? This condition is more likely to develop in men older than 50 years. What are the signs or symptoms? Symptoms of this condition include: Getting up often during the night to urinate. Needing to urinate frequently during the day. Difficulty starting urine flow. Decrease in size and strength of your urine stream. Leaking (dribbling) after urinating. Inability to pass urine. This needs immediate treatment. Inability to completely empty your bladder. Pain when you pass urine. This is more common if there is also an infection. Urinary tract infection (UTI). How is this diagnosed? This condition is diagnosed based on your medical history, a physical exam, and your symptoms. Tests will also be done, such as: A post-void bladder scan. This measures any amount of urine that may remain in your bladder after you finish urinating. A digital rectal exam. In a rectal exam, your health care provider checks your prostate by putting a lubricated, gloved finger into your rectum to feel the back of your prostate gland. This exam detects the size of your gland and any abnormal lumps or growths. An exam of your urine (urinalysis). A prostate specific antigen (PSA) screening. This is a blood test used to screen for prostate cancer. An ultrasound. This test uses sound waves to electronically produce a picture of your prostate gland. Your health care provider may refer you to a specialist in kidney and prostate diseases (urologist). How is this treated? Once symptoms begin, your health care provider will monitor your condition (active surveillance or watchful waiting). Treatment for this condition will depend on the severity of your condition. Treatment may include: Observation and yearly exams. This may be the only treatment needed if your condition and symptoms are mild. Medicines to relieve your symptoms, including: ?Medicines to shrink the prostate. ?Medicines to relax the muscle of the prostate. Surgery in severe cases. Surgery may include: ?Prostatectomy. In this procedure, the prostate tissue is removed completely through an open incision or with a laparoscope or robotics. ?Transurethral resection of the prostate (TURP). In this procedure, a tool is inserted through the opening at the tip of the penis (urethra). It is used to cut away tissue of the inner core of the prostate. The pieces are removed through the same opening of the penis. This removes the blockage. ?Transurethral incision (TUIP). In this procedure, small cuts are made in the prostate. This lessens the prostate's pressure on the urethra. ?Transurethral microwave thermotherapy (TUMT). This procedure uses microwaves to create heat. The heat destroys and removes a small amount of prostate tissue. ?Transurethral needle ablation (TUNA). This procedure uses radio frequencies to destroy and remove a small amount of prostate tissue. ?Interstitial laser coagulation (ILC). This procedure uses a laser to destroy and remove a small amount of prostate tissue. ?Transurethral electrovaporization (TUVP). This procedure uses electrodes to destroy and remove a small amount of prostate tissue. ?Prostatic urethral lift. This procedure inserts an implant to push the lobes of the prostate away from the urethra. Follow these instructions at home: Take ymee-kef-lldlovc and prescription medicines only as told by your health care provider. Monitor your symptoms for any changes. Contact your health care provider with any changes. Avoid drinking large amounts of liquid before going to bed or out in public. Avoid or reduce how much caffeine or alcohol you drink. Give yourself time when you urinate. Keep all follow-up visits. This is important. Contact a health care provider if: You have unexplained back pain. Your symptoms do not get better with treatment. You develop side effects from the medicine you are taking. Your urine becomes very dark or has a bad smell. Your lower abdomen becomes distended and you have trouble passing urine. Get help right away if: You have a fever or chills. You suddenly cannot urinate. You feel light-headed or very dizzy, or you faint. There are large amounts of blood or clots in your urine. Your urinary problems become hard to manage. You develop moderate to severe low back or flank pain. The flank is the side of your body between the ribs and the hip. These symptoms may be an emergency. Get help right away. Call 911. Do not wait to see if the symptoms will go away. Do not drive yourself to the hospital. Summary Benign prostatic hyperplasia (BPH) is an enlarged prostate that is caused by the normal aging process. It is not caused by cancer. An enlarged prostate can press on the urethra. This can make it hard to pass urine. This condition is more likely to develop in men older than 50 years. Get help right away if you suddenly cannot urinate. This information is not intended to replace advice given to you by your health care provider. Make sure you discuss any questions you have with your health care provider. Document Revised: 08/31/2021 Document Reviewed: 08/31/2021 [employer] Patient Education 2022 [employer]. Follow Up Care 2022 12:11:39 With:Fred TABARES, ALVARO Brizuela, URO Address: When: Unknown Comments:FELIZ [facility] Kalyn 06-27-2021 History of Present illness Narrative* Lawanda Scott RN - 08/22/2020 12:36 PM EDT Pt discharged to home in stable condition with belongings Discharge instructions given Pt denies having any further questions at this time Personal items given to patient at discharge Patient/family state they have everything they were admitted with. * Arden Maharaj DO - 08/22/2020 11:53 AM EDT Images from the original note were not included. [facility] Office: [phone] Felton Molina DO, Saleem De Jesus DO, Arden Maharaj DO, Reji Swann DO, Mamadou Adame MD, Niki Monzon MD, Siobhan Delacruz MD, Desirae Diop MD, Chico Montez MD, Sara England MD, MD Socorro, Theo Cabello MD, Cedrick Lomax DO, Namrata Adames MD, Uzair Lawson DO, MD Elida, Abdirashid Lopez DO, Florencio Barry MD, Bob Araiza MD, Taqueria Leon MD, Glen Dial MD, Rachel Mclean RN [facility], Malia Keane RN [facility], Arina Faustin CNP, Lissette Kaur, CLOTHES DRIER REPAIRER,Kanu Gaxiola, RN [facility], Samantha Holden CNP, Brianna Clark CNP, Sridevi Mayo, RN [facility], Curt Arthur, RN [facility], CHASE Sahni-Lucretia, Lucy Romero, MELVIN, Mary Ann Hernandez, RN [facility], Tri Marshall, RN [facility], Joanna Giordano, RN [facility], David Austin RN COMPLEX CARE, Kenisha Lund CNP, Martha Zeng CNP [facility] IN-PATIENT SERVICE [facility] Progress Note 08/22/2020 11:53 AM Name: Yanelis Noriega Acct: [id number] Room: Day: 1 Admit Date: 08/21/2020 9:49 AM PCP: Blu Velez DO Code Status: Full Code Subjective: C/C: Knee pain, concern for hemarthrosis Interval History Status: improved. Patient is resting company denies any complaints of chest pain, shortness of breath, nausea vomiting, fevers or chills. Brief History: This is a 75-year-old male who underwent knee arthroplasty approximately 10 to 12 days ago that presents with increasing knee pain and difficulty bending the knee. Is evaluated outside hospital emergency room was concern for hemarthrosis in the knee was placed in an Jesu wrap he was sent here to seehis surgeon. He otherwise denies any injury or falls. He did increase activity with therapy over the last 24 hours prior to presentation to the emergency room. Review of Systems: Constitutional: negative for chills, fevers, sweats Respiratory: negative for cough, dyspnea on exertion, shortness of breath, wheezing Cardiovascular: negative for chest pain, chest pressure/discomfort, lower extremity edema, palpitations Gastrointestinal: negative for abdominal pain, constipation, diarrhea, nausea, vomiting Neurological: negative for dizziness, headache Medications: Allergies: Allergies Allergen Reactions Contrast [Iodides] Hives and Itching Bactrim [Sulfamethoxazole-Trimethoprim] Rash Current Meds: Scheduled Meds: sodium chloride flush 5-40 mL Intravenous 2 times per day Continuous Infusions: sodium chloride PRN Meds: sodium chloride, acetaminophen OR acetaminophen, magnesium sulfate, ondansetron OR ondansetron, polyethylene glycol, potassium chloride OR potassium alternative oral replacementOR potassium chloride, sodium chloride flush, HYDROmorphone OR HYDROmorphone, oxyCODONE-acetaminophen OR oxyCODONE-acetaminophen Data: Past Medical History: has a past medical history of Arthritis, Congenital heart defect, History of transient ischemic attack (TIA), Hx of blood clots, Hyperlipidemia, Hypertension, and Snores. Social History: reports that he quit smoking about 55 years ago. He has never used smokeless tobacco. He reports current alcohol use of about 21.0 standard drinks of alcohol per week. He reports thathe does not use drugs. Family History: No family history on file. Vitals: BP (!) 144/64 Pulse 67 Temp 98.1 F (36.7 C) (Oral) Resp 16 Ht 5' 8 (1.727 m) Wt 180 lb (81.6 kg) SpO2 97% BMI 27.37 kg/m Temp (24hrs), Av F (36.7 C), Min:97.9 F (36.6 C), Max:98.1 F (36.7 C) No results for input(s): POCGLU in the last 72 hours. I/O (24Hr): No intake or output data in the 24 hours ending 08/22/20 1153 Labs: Hematology: Recent Labs 08/21/20 1543 08/22/20 0646 WBC 8.4 6.1 RBC 3.36* 3.26* HGB 10.6* 10.1* HCT 32.2* 31.3* MCV 95.8 96.0 MCH 31.5 31.0 MCHC 32.9 32.3 RDW 12.8 12.9 PLT 211 196 MPV 9.7 10.4 Chemistry: Recent Labs 08/22/20 0646 NA 141 K 4.0 CL 105 CO2 23 GLUCOSE 108* BUN 13 CREATININE 0.64* ANIONGAP 13 LABGLOM >60 GFRAA >60 CALCIUM 8.5* No results for input(s): PROT, LABALBU, LABA1C, D2KUUFH, A8QEHWO, FT4, TSH, AST, ALT, LDH, GGT, ALKPHOS, LABGGT, BILITOT, BILIDIR, AMMONIA, AMYLASE, LIPASE, LACTATE, CHOL, HDL, LDLCHOLESTEROL, CHOLHDLRATIO, TRIG, VLDL, QMD42MM, PHENYTOIN, PHENYF, URICACID, POCGLU in the last 72 hours. ABG:No results found for: POCPH, PHART, PH, POCPCO2, EQA3YBE, PCO2, POCPO2, PO2ART, PO2, POCHCO3, BXR6ZKR, HCO3, NBEA, PBEA, BEART, BE, THGBART, THB, OFR9SSM, WLUI5UVK, T5FNSUEZ, O2SAT, FIO2 No results found for: SPECIAL No results found for: CULTURE Radiology: No results found. Physical Examination: General appearance: alert, cooperative and no distress Mental Status: oriented to person, place and time and normal affect Lungs: clear to auscultation bilaterally, normal effort Heart: regular rate and rhythm, no murmur Abdomen: soft, nontender, nondistended, normal bowel sounds, no masses, hepatomegaly, splenomegaly Extremities: no edema, redness, tenderness in the calves Skin: no gross lesions, rashes, induration Assessment: Hospital Problems Last Modified POA * (Principal) Hemarthrosis of right knee 08/21/2020 Yes History of DVT (deep vein thrombosis) 08/21/2020 Yes PFO (patent foramen ovale) with history of stroke 08/21/2020 Yes Essential hypertension 08/21/2020 Yes Postoperative anemia due to acute blood loss 08/21/2020 Yes Chronic anticoagulation 08/21/2020 Yes Plan: 1. Orthopedic evaluation 2. Cardiology evaluation 3. Start Eliquis as possible transition for long-term anticoagulation. As he had vitamin K will likely be difficult to get his warfarin therapy to the next week or 2. Follow-up with PCP for question regarding need for long-term anticoagulation. Has been on Coumadin since a DVT in 2010 and also had a stroke at the time with evidence of patent foramen ovale with dpseo-ab-gkpw shunt. 4. Monitoring control blood pressure 5. Activity as tolerated 6. Discharge planning Arden Maharaj DO 08/22/2020 11:53 AM * Elisa Ferraro MD - 08/22/2020 11:15 AM EDT Ortho HD #2 Seen and evaluated with Dr. Maharaj present for discussion Patient had RTKR about 10 days ago, was seen in [place] ED Sunday evening after very aggressive PTsession that day. He describes 2/10 pain with HEP until then, 10+ pain after PT. Seen in ED, I spoke to the MD, she was uncomfortable with extreme swelling and hemarthrosis of the knee, thereforehe was transferred here Today he is in good spirits, pain well controlled with oxycodone, ambulating well with the walker. Afebrile, VSS Mild redness, usual moderate postop swelling about the knee, but no gross hemarthrosis Scot vacuum dressing is intact, tiny spotting, no saturation Good knee AAROM from 10 - 80 degrees, very tolerable No calf tenderness, negative Arian sign Discussed with Dr. Maharaj,IM backup the followin) Dr. Baltazar. Cardiology, consulted and eval'd the patient for hx of PFO. Dr. Baltazar's judgment was to not treat the heart defect surgically at this time 2) Regarding anticoagulation regimen going forward, we agreed the risk of hemarthrosis with LovenoxAND Coumadin together postop is very high. Therefore, we recommend the patient see his PCP this coming week to sort this out. In the meantime, Dr. Maharaj and I agreed that he should take Eliquis 2.5 mg twice daily for one month, starting this evening. Thereafter, he is to follow his PCP's instructions for long-term anticoagulation. Okay for discharge later today after PT. * Reji Dailey, PT - 08/22/2020 9:20 AM EDT Physical Therapy Facility/Department: [facility] MED SURG Initial Assessment NAME: Yanelis Noriega : 1945 Date of Service: 08/22/2020 Discharge Recommendations: Outpatient PT PT Equipment Recommendations Equipment Needed: No Assessment Body structures, Functions, Activity limitations: Decreased functional mobility ;Decreased ADL status;Decreased endurance;Decreased ROM;Decreased strength;Decreased balance;Increased pain Specific instructions for Next Treatment: continue to strengthen quads and glutes both open and closed chain e. Prognosis: Good Decision Making: Low Complexity PT Education: Goals;Transfer Training;PT Role;Functional Mobility Training;Plan of Care;General Safety;Weight-bearing Education;Home Exercise Program;Precautions Patient Education: transfer techniques, importance of HEP (knee ext ROM goal, continuing to strengthen quads and glutes. REQUIRES PT FOLLOW UP: Yes Activity Tolerance Activity Tolerance: Patient Tolerated treatment well;Other (due to recent exacerbation, he is cautious about doing too much today) Patient Diagnosis(es): There were no encounter diagnoses. has a past medical history of Arthritis, Congenital heart defect, History of transient ischemic attack (TIA), Hx of blood clots, Hyperlipidemia, Hypertension, and Snores. has a past surgical history that includes Total knee arthroplasty (Left, 2016); back surgery (2014); Shoulder arthroscopy (Right, 2010); Knee arthroscopy (Right, 2004); hernia repair (Right, 1994); Cataract removal with implant (Bilateral); Colonoscopy; and Total knee arthroplasty (Right, 08/09/2020). Restrictions Restrictions/Precautions Restrictions/Precautions: Weight Bearing Required Braces or Orthoses?: No Lower Extremity Weight Bearing Restrictions Right Lower Extremity Weight Bearing: Weight Bearing As Tolerated Vision/Hearing Vision: Impaired Vision Exceptions: Wears glasses for reading Hearing: Exceptions to WFL Hearing Exceptions: Bilateral hearing aid Subjective General Chart Reviewed: Yes Patient assessed for rehabilitation services?: Yes Response To Previous Treatment: Patient with no complaints from previous session. Family / Caregiver Present: No General Comment Comments: Had R TKA ~2 wks ago, 2 PT visits. was doing very well, took a nap, and woke up with significant increase in pain. went to [facility] via squad. pt states he received 2 units of blood Pain Screening Patient Currently in Pain: Yes Pain Assessment Pain Level: 7 Pain Type: Acute pain Vital Signs Patient Currently in Pain: Yes Orientation Orientation Overall Orientation Status: Within Normal Limits Social/Functional History Social/Functional History Lives With: Spouse Home Layout: One level Home Access: Stairs to enter with rails Entrance Stairs - Number of Steps: 3 Entrance Stairs - Rails: Right Bathroom Shower/Tub: Tub/Shower unit Bathroom Toilet: Standard Home Equipment: Crutches, Rolling walker Receives Help From: Family ADL Assistance: Needs assistance Homemaking Responsibilities: Yes Active Phone Technician: Yes Mode of Transportation: SUV 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 Leisure & Hobbies: yardwork and housework Cognition Objective Observation/Palpation Posture: Good PROM RLE (degrees) RLE PROM: (15-60) RLE General PROM: 15-60 Strength RLE Strength RLE: WFL Strength LLE Strength LLE: WFL Strength RUE Strength RUE: WFL Strength LUE Strength LUE: WFL Tone RLE RLE Tone: Normotonic Tone LLE LLE Tone: Normotonic Motor Control Gross Motor?: WNL Sensation Overall Sensation Status: WFL Bed mobility Rolling to Left: Independent Rolling to Right: Independent Supine to Sit: Independent Sit to Supine: Independent Scooting: Independent Transfers Sit to Stand: Contact guard assistance Stand to sit: Contact guard assistance Bed to Chair: Contact guard assistance Stand Pivot Transfers: Contact guard assistance Squat Pivot Transfers: Contact guard assistance Lateral Transfers: Contact guard assistance Ambulation Ambulation?: Yes WB Status: WBAT Ambulation 1 Surface: level tile Device: Rolling Walker Assistance: Contact guard assistance Quality of Gait: ambulates with decreased knee flex and ext Distance: 50' in room Stairs/Curb Stairs?: No Balance Posture: Good Sitting - Static: Good Sitting - Dynamic: Good Standing - Static: Good Standing - Dynamic: Fair Exercises Quad Sets: 10x10 Knee Long Arc Quad: 15 AAROM w/ L leg assist Plan Plan Times per week: 6-7 dpw Times per day: Twice a day Plan weeks: 12 visits Specific instructions for Next Treatment: continue to strengthen quads and glutes both open and closed chain e. Current Treatment Recommendations: Strengthening, Transfer Training, Endurance Training, Patient/Caregiver Education & Training, ROM, Home Exercise Program, Safety Education & Training, Stairtraining Safety Devices Type of devices: All fall risk precautions in place, Left in bed, Call light within reach, Gait belt Restraints Initially in place: No G-Code OutComes Score AM-PAC Score AM-PAC Inpatient Mobility without Stair Climbing Raw Score : 15 (08/22/20918) AM-PAC Inpatient without Stair Climbing T-Scale Score : 43.03 (08/22/20918) Mobility Inpatient CMS 0-100% Score: 47.43 (08/22/20918) Mobility Inpatient without Stair CMS G-Code Modifier : CK (08/22/20918) Goals Short term goals Time Frame for Short term goals: 12 visits Short term goal 1: To be independent with RW for ambulation Short term goal 2: To be independent with HEP for ROM, quad and glute strengthening. Short term goal 3: to be independent with all transfers. Patient Goals Patient goals : wishes to return home Therapy Time Individual Concurrent Group Co-treatment Time In 0820 Time Out 0900 Minutes 40 Reji Dailey, PT * Luis M Jewell [facility] - 08/21/2020 2:08 PM EDT Transitions of Care Pharmacy Service Medication Review The patient's list of current home medications has been reviewed and updated. Source(s) of information: Patient/Patient's /Sure Script/Patient warfarin regimen paper Please feel free to call with any questions about this encounter. Thank you. Luis M Jewell [facility] Transitions of Care Pharmacy Service Prior to Admission medications Medication Sig Start Date End Date Taking? Authorizing Provider warfarin (COUMADIN) 2 MG tablet Take 2 mg by mouth four times a week Sunday, Sunday, & Sunday Yes Historical Provider, warfarin (COUMADIN) 2 MG tablet Take 4 mg by mouth three times a week Takes 4 mg (2 tablets) on Sunday, Sunday & Sunday Yes Historical Provider, benazepril (LOTENSIN) 20 MG tablet Take 20 mg by mouth every evening Yes Historical Provider, atorvastatin (LIPITOR) 10 MG tablet Take 10 mg by mouth every evening Yes Historical Provider, Ascorbic Acid (VITAMIN C) 1000 MG tablet Take 1,000 mg by mouth 2 times daily Yes Historical Provider, fluocinonide (LIDEX) 0.05 % cream Apply topically as needed (for occasional rash on lower legs) Uses very rarely Yes Historical Provider, * Lawanda Scott RN - 08/21/2020 9:51 AM EDT Pt admitted to room 2019 per stretcher in stable condition from [facility] Oriented to room and surroundings Bed in lowest position, wheels locked, 2/4 side rails up Call light in reach, room free of clutter, adequate lighting provided Denies any further questions at this time Instructed to call out with any questions/concerns/new onset of pain and/or n/v White board updated Continue to monitor with hourly rounding STAY WITH IL protocol initiated Bed alarm on/Fall Risk signs in place/Fall risk sticker to wrist band Non-skid socks on/at bedside MEDICATION EDUCATION SHEET in place for patient/family to view & ask questions. [facility] Phone: [phone] 791-740106-27-2021 Hospital course Narrative* Elisa Ferraro MD - 08/22/2020 11:35 [place] [address] DISCHARGE SUMMARY Patient: Yanelis Noriega Reg#: [id number] Date: 1945 Date of Admission & Surgery: 08/21/2020 Date of Discharge: 08/22/2020 Attending Surgeon: Elisa Ferraro M.D. PCP: Blu Velez, History and Hospital Course The patient has had severe pain and swelling in the knee, was evaluated in ED and admitted for Ortho eval. Medical evaluation and co-management is provided by the admissions consultant medical staff, Dr. Maharaj,at this time. The patient was evaluated medically and orthopaedically, with consensus that no surgical intervention would be required, but that the VTE prophylaxis regimen would bear changing Lovenox and Coumadin were discontinued for discharge after discussion with Dr. Maharaj; it was decided to order Eliquis 2.5mg twice daily for one month, until further evaluation and planning of future thromboprophylaxis from that point onward. Otherwise the patient did well with oral pain management, was never grossly febrile, and was able to participate actively in a supervised program of physical therapy for gait training, transfers and joint range of motion. He was administtered Vitamin K and 2 units of plasma in ED in [facility]; at this time his hemoglobin is stable, without necessity of transfusion. Wound healing is on track per my assessment, without sign of infection. The patient experienced no other problem or complication during this admission and was considered a satisfactory candidate for discharge. Disposition The patient was able to be discharged home on 08/22/2020, in good condition, with instructions to maintain activity and participation in therapy with total joint precautions. His next PT appointment is tomorrow, 08/23/20. Prescription was pphoned in today to his usual pharmacy for Percocet 5/325 one q4h prn for pain, for later home use, and for the specific regimen of thromboembolic prophylaxis withEliquis 2.5 mg twice daily x one month, after discharge. The patient was also advised to follow up in my office, as scheduled, in two days, for re-evaluation. Final diagnosis: Acute postoperative right knee pain Procedure performed: None Complications: None [facility] Phone: [phone] History of Present illness Narrative* Stella Jacobs RN - 08/10/2020 12:39 PM EDT Patient discharged via wheelchair to home with all his belongings in stable condition. Patient understood and signed AVS. * Azra Hankins OT - 08/10/2020 11:15 AM EDT Occupational Therapy Facility/Department: [facility] Daily Treatment Note NAME: Yanelis Noriega : 1945 Date of Service: 08/10/2020 Discharge Recommendations: Continue to assess pending progress OT Equipment Recommendations Equipment Needed: Yes (pt should consider tub transfer bench) Assessment Performance deficits / Impairments: Decreased functional mobility ;Decreased ADL status;Decreased high-level IADLs;Decreased endurance Prognosis: Good Decision Making: Low Complexity OT Education: Plan of Care;IADL Safety;Precautions;ADL Adaptive Strategies;Equipment Patient Education: use of antibacterial wash, AD for donning compression hose, adaptive dressing techniques for LB REQUIRES OT FOLLOW UP: Yes Activity Tolerance Activity Tolerance: Patient Tolerated treatment well Activity Tolerance: Pt is very motivated and demo's good learning Safety Devices Safety Devices in place: Yes Type of devices: Call light within reach;Left in chair;Nurse notified;Gait belt Patient Diagnosis(es): There were no encounter diagnoses. has a past medical history of Arthritis, Congenital heart defect, History of transient ischemic attack (TIA), Hx of blood clots, Hyperlipidemia, Hypertension, and Snores. has a past surgical history that includes Total knee arthroplasty (Left, 2016); back surgery (2015); Shoulder arthroscopy (Right, 2010); Knee arthroscopy (Right, 2004); hernia repair (Right, 1994); Cataract removal with implant (Bilateral); Colonoscopy; and Total knee arthroplasty (Right, 08/09/2020). Restrictions Restrictions/Precautions Restrictions/Precautions: General Precautions, Up as Tolerated, Fall Risk Position Activity Restriction Other position/activity restrictions: elevate Op extremity, B knee high Teds, L UE IV Subjective General Chart Reviewed: Yes Patient assessed for rehabilitation services?: Yes Family / Caregiver Present: No Subjective Subjective: Pt resting comfortably in bed agreeable to OT eval. Pain Assessment Pain Level: 3 Pain Type: Surgical pain Pain Location: Knee Pain Orientation: Right Orientation Orientation Overall Orientation Status: Within Normal Limits Objective ADL Feeding: Setup;Independent Grooming: Stand by assistance;Setup (Pt was able to complete oral care and hair combing in standingat sink with RW for support) UE Bathing: Stand by assistance;Setup (Pt able to wash UB in shower while seated on shower chair) LE Bathing: Minimal assistance;Setup (Pt required assist to wash tianna feet) UE Dressing: Setup;Stand by assistance LE Dressing: Minimal assistance;Setup (Pt required Min A to thread foot through underwear and shorts on surgical side. Pt instructed to pull clothing to above knees while seated, then rest of the wayup in standing while holding grab bar. Pt mary carmeno'd good learning) Toileting: (Pt had no needs this visit) Additional Comments: Pt demo'd good safety and indp throughout shower, dressing, and grooming routine Balance Sitting Balance: Supervision Standing Balance: Contact guard assistance (CGA fading to SBA) Standing Balance Time: Pt demo'd good (-) standing balance during functional mob and grooming tasks at sink with RW for support Functional Mobility Functional - Mobility Device: Rolling Walker Activity: To/from bathroom Assist Level: Contact guard assistance Functional Mobility Comments: Pt completed functional mob from bedside chair to bathroom and back to bedside chair with good safety and pacing. Bed mobility Comment: NT- pt in chair upon arrival and returned to chair Transfers Sit to stand: Contact guard assistance Stand to sit: Contact guard assistance Transfer Comments: Pt demo'd safe transfer technique Cognition Overall Cognitive Status: WNL Plan Plan Times per week: 5-6x/week while IP Times per day: Daily Current Treatment Recommendations: Self-Care / ADL, Equipment Evaluation, Education, & procurement, Functional Mobility Training, Stair training, Pain Management, Endurance Training AM-PAC Score 21 Goals Short term goals Time Frame for Short term goals: By discharge, pt to demo Short term goal 1: bed mobility to Mod I with use of grab bars as needed. Short term goal 2: ADL transfers and functional mobility to Mod I with use of AD as needed. Short term goal 3: toileting to Mod I with use of AD/grab bars as needed. Short term goal 4: UB ADLs to Set up and LB ADLs to Min A with use of AD/AE as needed. Short term goal 5: I with simple B UE HEP to maintain strength to assist with self care. intermission coordinator goals detention goal 1: Pt to be I with sugical precuations, recommendations for AE/DME and fall prevention/EC/WS education with use of handouts as needed. Patient Goals Patient goals : To go home! Therapy Time Individual Concurrent Group Co-treatment Time In 951 (plus 10 min (11:10-11:20) to discuss tub transfer bench) Time Out 1100 Minutes 68 Azra Haknins OT * Elisa Ferraro MD - 08/10/2020 11:07 AM EDT Ortho POD # 1 and Discharge Feels fine now, stayed overnight bc of confusion post anesthesia, and complete numbness of the right (operative) foot. Was unable to participate in PT. His pain is well controlled orally today Afebrile, Vital signs stable [place] dressing intact; no skin redness at the site Neurovascular findings normal, negative Arian sign Okay for discharge today Per IM Service, he will continue Lovenox AND Coumadin postop on the schedule they have ordered Follow up as scheduled in my office in about two weeks, see appt sheet Pain medication Rx and VTE prophylaxis Rx dispensed * Naun Byers RN - 08/10/2020 9:20 AM EDT Ortho Coordinator Daily Rounding Note Admission Date: 08/09/2020 Yanelis Noriega is a 75 y.o. male Post Op Day # 1 RTKA Labs: Recent Labs 08/09/20 0822 PLT 144 No results for input(s): NA, K, CL, CO2, BUN, CREATININE, GLUCOSE in the last 72 hours. Met with: Patient Patient's LOC: alert and oriented X3 Patient progress GOOD, UP WALKING WITH SBA AND FWW WITH PT Patient's Pain: Patient rates pain 4 Oral Intake: good Output: adequate Espinal in: no ON-Q: no Walker/DME: Walker/DME needed: No DME needed: walker DME Agency: PT HAS OWN [facility] Anticoagulation: Anticoagulation: PT WILL RESUME HOME MEDICATION COUMADIN and bridge with 40mg lovenox BID x 1 week.Pt has lovenox injections at home. Prescription in chart: no Continuity of Care: The SIRIA form is on the chart. The SIRIA form is not signed by the physician. Discharge Planning: Confirmed with patient that discharge plan is Home. Agency/Facility chosen: PT REFUSED HHC OR VNS Awaiting pre-certification no Anticipated discharge date: 08/10/2020. Patient's questions and concerns were answered. Actively listened and provided reassurance. * Shey Jackson RN - 08/09/2020 8:35 PM EDT Pt admitted to room 2108 per cart in stable condition from PACU Oriented to room and surroundings Bed in lowest position, wheels locked, 2/4 side rails up Call light in reach, room free of clutter, adequate lighting provided Denies any further questions at this time Instructed to call out with any questions/concerns/new onset of pain and/or n/v White board updated Continue to monitor with hourly rounding STAY WITH ME protocol initiated Bed alarm on/Fall Risk signs in place/Fall risk sticker to wrist band Non-skid socks on/at bedside MEDICATION EDUCATION SHEET in place for patient/family to view & ask questions. * Aminata Smyth RN - 08/09/2020 7:00 PM EDT C/o blurry vision left eye. States started when he came into Recovery. Sclera pink compared to right eye. Cool wash cloth to eyes and pt going to try to sleep. Will update Dr. Pedro when he is available. States he feels like something is in it. * Kena Moscoso, PT - 08/09/2020 6:09 PM EDT Physical Therapy Facility/Department: [facility] OR Initial Assessment-day of surgery NAME: Yanelis Noriega : 1945 Date of Service: 08/09/2020 Discharge Recommendations: Due to recent hospitalization and medical condition, pt would benefit from additional therapy at time of discharge to ensure safety. Please refer to the AM-PAC score for current functional status. Rt. TKA by Dr. Ferraro, 08/09/20 Assessment Body structures, Functions, Activity limitations: Decreased ROM;Decreased strength;Decreased balance;Decreased functional mobility Assessment: Pt. became diaphoretic/dizzy in standing and needed to sit. BP 116/66. Pt. also with Rt. LE numbness, especially around Rt. ankle/foot. Will continue to progress and prepare for d/c home Specific instructions for Next Treatment: prepare for d/c home Prognosis: Excellent Decision Making: Medium Complexity PT Education: Goals;PT Role;Plan of Care Patient Education: walker safety; homework ex. for tonight REQUIRES PT FOLLOW UP: Yes Activity Tolerance Activity Tolerance: Treatment/ Eval limited by pt's grogginess/ diaphoretic in standing; also Rt. LE numbness Patient Diagnosis(es): There were no encounter diagnoses. has a past medical history of Arthritis, Congenital heart defect, History of transient ischemic attack (TIA), Hx of blood clots, Hyperlipidemia, Hypertension, and Snores. has a past surgical history that includes Total knee arthroplasty (Left, 2015); back surgery (2014); Shoulder arthroscopy (Right, 2010); Knee arthroscopy (Right, 2004); hernia repair (Right, 1994); Cataract removal with implant (Bilateral); and Colonoscopy. Restrictions Restrictions/Precautions Restrictions/Precautions: General Precautions, Up as Tolerated, Fall Risk Position Activity Restriction Other position/activity restrictions: elevate Op extremity, B knee high Teds, L UE IV Vision/Hearing Subjective General Chart Reviewed: Yes Patient assessed for rehabilitation services?: Yes Family / Caregiver Present: No Follows Commands: Within Functional Limits Pain Screening Patient Currently in Pain: Yes Orientation Orientation Overall Orientation Status: Within Functional Limits 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 & Hobbies: working outside Additional Comments: Pt denies any recent falls Cognition Cognition Overall Cognitive Status: Exceptions Arousal/Alertness: Delayed responses to stimuli Following Commands: Follows multistep commands with repitition;Follows multistep commands with increased time Attention Span: Appears intact Memory: Appears intact Safety Judgement: Decreased awareness of need for assistance;Decreased awareness of need for safety Problem Solving: Decreased awareness of errors Insights: Decreased awareness of deficits Initiation: Requires cues for some Sequencing: Requires cues for some Cognition Comment: Pt very appears groggy, reassess cognition next tx sesion Objective Observation/Palpation Posture: Fair Observation: Jesu wrap bandage and polar ice on R knee, LUE IV, L Jodee hose on Edema: none AROM RLE (degrees) RLE General AROM: 0-40 degrees flexion knee to pain tolerance supine AROM LLE (degrees) LLE AROM : WNL Strength RLE Comment: + SLR; +partial LAQ Strength LLE Strength LLE: WFL See OT chela for UE ROM/MMT Sensation Overall Sensation Status: Impaired (Pt states he feels like his ankle and lateral portion on R footare still numb) Bed mobility Rolling to Left: Stand by assistance Supine to Sit: Minimal assistance Sit to Supine: Minimal assistance Scooting: Minimal assistance Transfers Sit to Stand: Minimal Assistance;2 Person Assistance Once standing safely at bedside with RW, took pt. through pre-gait sequence to ensure quad control prior to ambulation. Assessed control of knee during static standing, wt. shifts and steps in place.Pt. with questionable buckling of knee and numbness/decreased proprioception at ankle/foot. Pt. Also became dizzy and needed to sit. BP 116/66. Returned pt. To supine and informed RN . Balance Posture: Good Sitting - Static: Good Sitting - Dynamic: Good Standing - Static: Fair (numbness Rt. LE) Exercises Quad Sets: 10 Heelslides: 5 Gluteal Sets: 10 Knee Long Arc Quad: 3 Ankle Pumps: 10 Pt. instructed in quad/glute isometrics to be done x 10 reps every 1-2 hrs. as able. Encouraged pt.to frequently AP for increased LE circulation and perform heel slides as needed to prevent hip/kneestiffness. Plan Plan Times per week: twice daily/ 7 days/wk Specific instructions for Next Treatment: prepare for d/c home Current Treatment Recommendations: Strengthening, Functional Mobility Training, ROM, Transfer Training, Balance Training, Endurance Training, Stair training, Gait Training, Home Exercise Program, Safety Education & Training, Patient/Caregiver Education & Training Safety Devices Type of devices: All fall risk precautions in place, Gait belt, Patient at risk for falls, Call light within reach, Left in bed, Nurse notified AM-PAC Score -[facility] Inpatient Mobility Raw Score : 12 (08/09/201752) -[facility] Inpatient T-Scale Score : 35.33 (08/09/201752) Mobility Inpatient CMS 0-100% Score: 68.66 (08/09/201752) Mobility Inpatient [facility] G-Code Modifier : CL (08/09/201752) Goals Short term goals Time Frame for Short term goals: 8 visits: Patient Goals Patient goals : stay tonight Short Term Goal 1: Pt. To be indep. With bed mob. 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 To be indep. With transfers with safe hand placement with RW 100% of time Short Term Goal 3: Pt. To be indep with gait with RW, 100ft. Short Term Goal 4: Pt. To safely negotiate stairs to prepare for entering home at discharge. Short Term Goal 5: Pt. To be indep with ant. NICK HEP Therapy Time Individual Concurrent Group Co-treatment Time In 1558 Time Out 1649 Minutes 51 Treatment time: 41min. Co-treatment with OT warranted first time up day of surgery. Cotx due to potential risk of decreased sensation, muscle control and proprioception from spinal epidural and/or regional block. Decreasedsafety and independence requiring 2 skilled therapy professionals to address individual discipline's goals. KENA MOSCOSO, PT * Demi Huerta, OT - 08/09/2020 6:02 PM EDT Occupational Therapy Occupational Therapy Initial Assessment Date: 08/09/2020 Patient Name: Yanelis Noriega : 1945 RN reports patient is medically stable for therapy treatment this date. Chart reviewed prior to treatment and patient is agreeable for therapy. All lines intact and patient positioned comfortably at end of treatment. All patient needs addressed prior to ending therapy session. Date of Service: 08/09/2020 Discharge Recommendations: Continue to assess pending progress OT Equipment Recommendations Equipment Needed: Yes Mobility Devices: ADL Assistive Devices ADL Assistive Devices: Transfer Tub Bench;Emergency Alert System;Long-handled Shoe Horn;Long-handled Sponge;Sales Agent Financial Report Service;Sock-Aid Hard;Grab Bars - shower Assessment Performance deficits / Impairments: Decreased functional mobility ;Decreased safe awareness;Decreased ADL status;Decreased strength;Decreased sensation;Decreased high-level IADLs;Decreased balance;Decreased posture Assessment: Skilled OT services are indicated to increase I and safety during functional tasks to return home at prior level of function as able. Prognosis: Good Decision Making: Medium Complexity OT Education: OT Role;Transfer Training;Plan of Care;Energy Conservation;ADL Adaptive Strategies Patient Education: safety in function, fall prevention/call light use, benefits of being OOB, pursed lip breathing, recommendations for continued therapy REQUIRES OT FOLLOW UP: Yes Activity Tolerance Activity Tolerance: Patient Tolerated treatment well;Treatment limited secondary to medical complications (free text) Activity Tolerance: fair - Safety Devices Safety Devices in place: Yes Type of devices: Nurse notified;Gait belt;Bed alarm in place;All fall risk precautions in place;Call light within reach;Patient at risk for falls;Left in bed Patient Diagnosis(es): There were no encounter diagnoses. has a past medical history of Arthritis, Congenital heart defect, History of transient ischemic attack (TIA), Hx of blood clots, Hyperlipidemia, Hypertension, and Snores. has a past surgical history that includes Total knee arthroplasty (Left, 2016); back surgery (2014); Shoulder arthroscopy (Right, 2010); Knee arthroscopy (Right, 2004); hernia repair (Right, 1994); Cataract removal with implant (Bilateral); and Colonoscopy. PER H&P: Procedure: RIGHT KNEE TOTAL ARTHROPLASTY- DEPUY (Right Knee) Restrictions Restrictions/Precautions Restrictions/Precautions: General Precautions, Up as Tolerated, Fall Risk Position Activity Restriction Other position/activity restrictions: elevate Op extremity, B knee high Teds, L UE IV Subjective General Chart Reviewed: Yes Patient assessed for rehabilitation services?: Yes Family / Caregiver Present: No Subjective Subjective: Pt resting comfortably in bed agreeable to OT eval. Patient Currently in Pain: Yes Comments / Details: Pt states he has pain in R knee, did not rate. 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 & 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: working outside Additional Comments: Pt denies any recent falls Objective Vision: Within Functional Limits (Pt denies any recent visual changes) Vision Exceptions: Wears glasses for reading Hearing: Exceptions to WFL (Does not have hear aides with him) Hearing Exceptions: Hard of hearing/hearing concerns;Bilateral hearing aid Orientation Overall Orientation Status: Within Functional Limits Observation/Palpation Posture: Fair Observation: Jesu wrap bandage and polar ice on R knee, LUE IV, L Jodee hose on Edema: none Balance Sitting Balance: Stand by assistance Standing Balance: Minimal assistance (Min x2 staff assist for safety and balance first time up after surgery) Standing Balance Time: standing marisa 2-3 min Activity: pre gait and functional mobility Comment: Pt became light headed during functional mobility, pt sat down and BP was taken, 116/66. Pt layed back sarah, BP taken again 129/74 and all symptoms resolved. Functional Mobility Functional - Mobility Device: Rolling Walker Activity: (EOB) Assist Level: Minimal assistance (x2 staff assist for safety and balance) Functional Mobility Comments: Pt required Min verbal cues/tactile assist for upright posture, RW safety, pacing self, extending B UE on RW for increased support, weight shifting all to increase safety and reduce risk of fall. Toilet Transfers Toilet Transfer: Unable to assess Toilet Transfers Comments: N/T Pt with no needs at this time ADL Feeding: Setup Grooming: Setup;Stand by assistance UE Bathing: Setup;Minimal assistance LE Bathing: Setup;Moderate assistance UE Dressing: Setup;Minimal assistance (with hosp gown) LE Dressing: Setup;Maximum assistance (to don hosp socks supine in bed) Toileting: Moderate assistance Tone RUE RUE Tone: Normotonic Tone LUE LUE Tone: Normotonic Coordination Movements Are Fluid And Coordinated: Yes Bed mobility Rolling to Left: Stand by assistance Supine to Sit: Minimal assistance Sit to Supine: Minimal assistance Scooting: Minimal assistance Comment: Pt required Min verbal cues for pacing self, line mgmt, and use of bedrails all to increase safety. Transfers Sit to stand: Minimal assistance;2 Person assistance (with RW) Stand to sit: Minimal assistance;2 Person assistance Transfer Comments: Pt required Min verbal cues/tactile assist for upright posture, RW safety, walking R knee out prior to sitting to reduce bend and increased comfort, extending B UE on RW for increased support, reaching back to surface prior to sitting all to increase safety and reduce risk of fall. Cognition Overall Cognitive Status: Exceptions Arousal/Alertness: Delayed responses to stimuli Following Commands: Follows multistep commands with repitition;Follows multistep commands with increased time Attention Span: Appears intact Memory: Appears intact Safety Judgement: Decreased awareness of need for assistance;Decreased awareness of need for safety Problem Solving: Decreased awareness of errors Insights: Decreased awareness of deficits Initiation: Requires cues for some Sequencing: Requires cues for some Cognition Comment: Pt very appears groggy, reassess cognition next tx sesion Sensation Overall Sensation Status: Impaired (Pt states he feels like his ankle and lateral portion on R footare still numb) LUE AROM (degrees) LUE AROM : WFL RUE AROM (degrees) RUE AROM : WFL LUE Strength Gross LUE Strength: WFL LUE Strength Comment: 4+/5 RUE Strength Gross RUE Strength: WFL RUE Strength Comment: 4+/5 Plan Plan Times per week: 5-6x/wk 1-2x/day as marisa Current Treatment Recommendations: Strengthening, Endurance Training, Balance Training, Functional Mobility Training, Safety Education & Training, Positioning, Home Management Training, Self-Care/ ADL, Equipment Evaluation, Education, & procurement, Patient/Caregiver Education & Training AM-PAC Score AM-PAC Inpatient Daily Activity Raw Score: 16 (08/09/201800) AM-PAC Inpatient ADL T-Scale Score : 35.96 (08/09/201800) ADL Inpatient CMS 0-100% Score: 53.32 (08/09/201800) ADL Inpatient CMS G-Code Modifier : CK (08/09/201800) Goals Short term goals Time Frame for Short term goals: By discharge, pt to demo Short term goal 1: bed mobility to Mod I with use of grab bars as needed. Short term goal 2: ADL transfers and functional mobility to Mod I with use of AD as needed. Short term goal 3: toileting to Mod I with use of AD/grab bars as needed. Short term goal 4: UB ADLs to Set up and LB ADLs to Min A with use of AD/AE as needed. Short term goal 5: I with simple B UE HEP to maintain strength to assist with self care. intermission coordinator goals intermission coordinator goal 1: Pt to be I with sugical precuations, recommendations for AE/DME and fall prevention/EC/WS education with use of handouts as needed. Patient Goals Patient goals : To go home! Therapy Time Individual Concurrent Group Co-treatment Time In 1558 Time Out 1647 Minutes 49 tx time: 38 min Co-treatment with PT warranted first time up day of surgery. Cotx due to potential risk of decreased sensation, muscle control and proprioception from spinal epidural and/or regional block. Decreasedsafety and independence requiring 2 skilled therapy professionals to address individual discipline's goals. Demi RODZIEWICZ, OT * Naun Byers RN - 08/09/2020 3:52 PM EDT Ortho Coordinator Daily Rounding Note Admission Date: 08/09/2020 Yanelis Noriega is a 75 y.o. male Post Op Day # 0 RTKA PT IS A SAME DAY DISCHARGE. Labs: Recent Labs 08/09/20 0822 PLT 144 No results for input(s): NA, K, CL, CO2, BUN, CREATININE, GLUCOSE in the last 72 hours. Met with: Patient Patient's LOC: DROWSY BUT WAS EASY TO AROUSE. Patient progress FAIR, MET WITH PT IN PACU Patient's Pain: Patient rates pain 7 Oral Intake: good Output: inadequate S/P RTKA Espinal in: no ON-Q: no Walker/DME: Walker/DME needed: No DME needed: walker DME Agency: PT HAS OWN FWW FROM HOME AT BEDSIDE Anticoagulation: Anticoagulation: PT TO RESUME COUMADIN Prescription in chart: no Continuity of Care: The SIRIA form is on the chart. The SIRIA form is not signed by the physician. Discharge Planning: Confirmed with patient that discharge plan is Home. Agency/Facility chosen: NONE Awaiting pre-certification no Anticipated discharge date: 08/09/2020. Patient's questions and concerns were answered. Actively listened and provided reassurance. * Naun Byers RN - 08/09/2020 10:33 AM EDT Pt has percocet escribed to [facility] in [place], [place]. Pt will resume home medication coumadin post-op to prevent DVT's. Pt has a fww from home. * Eugenie Avalos RN - 08/09/2020 9:55 AM EDT Patient nerve block completed right knee. Patient tolerated well. Side rails up and call light Within reach. * Rubi Sykes RN - 07/16/2020 3:07 PM EDT Blood bank received orders from Dr. Ferraro for platelets documented in this [facility] Work Phone: [phone]) 213-431706-15-2021 Hospital course Narrative* Elisa Ferraro MD - 08/10/2020 11:12 [place] [address] DISCHARGE SUMMARY Patient: Yanelis Noriega Reg#: [id number] Date: 1945 Date of Admission & Surgery: 08/09/2020 Date of Discharge: 08/10/2020 Attending Surgeon: Elisa Ferraro M.D. PCP: Blu Velez DO History and Hospital Course The patient has had severe pain and arthritis of the knee, unresponsive to conservative treatment and is now admitted for joint replacement. Medical evaluation and postoperative co-management is provided by the admissions consultant medical staff. The patient underwent knee replacement on the day of admission, 08/09/2020. The operation was well tolerated by the patient, without any complication. Postoperatively the patient did well, was never grossly febrile, and was able to participate actively in a supervised program of physical therapy for gait training, transfers and joint range of motion. Postoperative hemoglobin remained stable, not requiring transfusion. Wound healing ensued withoutdifficulty and without sign of infection. The patient experienced no other problem or complication during this admission and was considered a satisfactory candidate for discharge. Disposition The patient was able to be discharged home postoperatively on 08/10/2020, POD # 1, in good condition, with instructions to maintain activity and participation in therapy with total joint precautions. Prescription was given for Percocet 5/325 one q4h prn for pain, for later home use, and a specific regimen was prescribed for continued thromboembolic prophylaxis with Lovenox 80mg sc twice daily x one week, per Internal Medicine, after discharge. He is to resume his Coumadin per his usual regimen as well, as ordered by IM. The patient was also advised to follow up in my office within 2 weeks for re-evaluation. Final diagnosis: Osteoarthritis of the knee Procedure performed: Right total knee replacement Complications: None Disposition: Home [facility] this [facility] Phone: [phone]) 372-338906-15-2021 Hospital Discharge instructions* Discharge Instr - Diet* Stella Jacobs RN - 08/10/2020 10:56 AM EDT Good nutrition is important when healing from an illness, injury, or surgery. Follow any nutrition recommendations given to you during your hospital stay. If you were given an oral nutrition supplement while in the hospital, continue to take this supplement at home. You can take it with meals, in-between meals, and/or before bedtime. These supplements can be purchased at most local grocery stores, pharmacies, and [employer]. If you have any questions about your diet or nutrition, call the hospital and ask for the dietitian. * Additional Instructions* Naun Byers RN - 08/09/2020 Images from the original note were not included. ANY ORTHOPEDIC QUESTIONS OR ANY OTHER CONCERNS YOU MAY CALL THE ORTHOPEDIC COORDINATOR: NAUN BYERS RN, BSN [phone] [email or web address] YOU MAY ALSO MESSAGE ME ON GET WELL LOOP!! DISCHARGE INSTRUCTIONS Caring for yourself after joint replacement surgery (Total Hip and Total Knee Replacement) Activity and Therapy Receive physical therapy three times per week. (Pain medication one hour prior to therapy) Perform PT exercises on own when not receiving home or outpatient PT. Ideally exercises should be at least two times a day. Increase level of activity and ambulation each day. Perform deep breathing exercises daily. Patient provides self-care when possible. Work on Range of motion for Total knee patients. No pillow under the knee for Total knee patients. Elevate the surgical leg when seated. Diet: Increase oral intake of fruits, fiber and water to prevent constipation. Drink fluids frequently and take stool softeners to aid in bowel motility. Increase protein intake/reduce high-sugar intake to help promote healing and prevent infection. Incision Care: Keep Aquacel or other dressing intact until seen and removed by surgeon, unless saturated, in whichcase, call surgeon and request instructions. If dressing falls off, call surgeon. Jodee Hose on in the am and off in the pm to reduce swelling. Ice affected area four times a day, for twenty minutes. Pain Medications and Anticoagulant You have been place on an anticoagulant to prevent blood clots. Take this medication exactly as prescribed. Be alert for signs of bleeding. Take care not to injure yourself. You have been provided pain medicine to control your pain. Do not take more narcotics than prescribed. You may begin weaning from narcotics as your pain level improves by decreasing the amount or frequency of the narcotics. You may also take plain acetaminophen as an alternate to the narcotics. Never exceed the recommended dosage. Ice, rest and elevating the surgical limb also help with pain control. When to call the Surgeon: Increased redness, warmth, drainage, swelling or odor from incision site. Temperature above 101 degrees. Pain not controlled by prescribed medications. Calf tenderness, swelling, or redness. Shortness of breath or chest pain. If you cannot urinate and have been consuming liquids Any incision or surgical-related concerns. Call surgeon with concerns PRIOR TO going to hospital. Normal Conditions: Swelling in the operative leg: this should reduce over time. Bruising behind the knee and around surgical area. Some post-operative pain. Constipation related to pain medications/decreased mobility. (Increase fiber & water intake.) Slight warmth of operative leg. Fatigue and moderate pain after therapy. Numbness near the incision site. Nausea - take pain medications with food. Cut back on pain medication. NOTE: Remember to go to follow-up orthopedic appointment with surgeon Discharge instructions video: [email or web address] Keep it Clean Post-Operative Home instructions These instructions are to help you have the best possible recovery after your surgical procedure. [facility] is here to support you. If you have questions, call [phone] Sunday through Sunday from 7:30AM to 8:30PM to speak to a nurse. If you need to speak to someone outside of these hours, call your physician. Incision Do s and Don ts Do wash hands before and after dressing changes or when you have had any contact with your incision. Use hand black jack dealer or antibacterial soap. Do keep your incision clean and dry. It s OK to wash the skin around your incision with mild soap and water. Do change your dressing as you were told. Do notify your doctor if the dressing becomes wet or dirty. Do use a clean washcloth every time when cleaning your incision. Do sleep on clean linens. Do keep pets away from incision site. Don t sit in a bathtub, pool, or hot tub until your incision is fully closed and any drains are removed. Don t scrub, pick, scratch, or pull at your incision. Don t use oils, lotions, or creams on your incision unless your healthcare provider approves it. Follow-up You will have one or more follow-up visits with your healthcare provider. These are needed to checkhow well you re healing. Your drain, stitches, or neel may also be removed during these visits. Do not miss your follow-up visit, even if you are feeling better. Call your healthcare provider right away if you have the following: Fever of 100.4 F (38 C) or higher, or as advised by your healthcare provider. Chest pain or trouble breathing. Pain or tenderness in your leg(s). Increased pain, redness, swelling, bleeding, or foul-smelling drainage at the incision site. Incision changes, separates or is hot to the touch. Problems with the drain if you have one. Itchy, swollen skin; skin rash. Medicines, Diet, and Activity: Refer to your discharge paperwork for further instructions SCOT Single Use Negative Pressure Wound Therapy System SCOT provides suction, also known as negative pressure wound therapy, to an incision, which allows excess fluid to be drawn out of the incision and improves blood flow to the incisional area, which in turn speeds healing. The dressing will be left in place until your first post-op visit with your orthopedic surgeon. The dressing is working properly when the green light located on the top of the pump is flashing continuously. When the green light stops flashing, it means the pump has stopped drawing negative pressure. It isokay to leave the dressing and pump in place until your first visit at your orthopedic surgeon s office. Do not replace the batteries in the pump. Do not remove the dressing or pump. Call your orthopedic surgeon if you notice any of the following: The dressing fills rapidly with blood. The skin around your dressing looks more red or irritated than usual even after you have rested andelevated your leg. The incisional wound has any odor/smell. The dressing is coming loose. The alarm display will not stop flashing. Showering with the SCOT dressing The dressing on top of the surgical incision site is water resistant. You can shower and wash with the dressing in place, as long as you take care not to expose the dressing directly to jets of waterand do not soak it. Soaking the dressing will cause it to fall off. You MAY shower - as long as you disconnect the pump from the dressing first. 1. Press the orange button to pause the therapy. 2. Unscrew the two connector parts. 3. The SCOT pump should not be exposed to jets of water. Put the pump on a counter outside the shower area and away from the source of water. 4. Make sure the tubing that is still attached to the dressing is facing downward, away from the water source, so that water cannot enter the tube. 5. After you have dried off and blotted the dressing site and area around the dressing, reconnect the tubing to the pump. 6. Turn the pump back on. PLEASE NOTE:The batteries for the SCOT dressing will stop negative pressure after [address] Ferraro wants the dressing and the battery pack left in place, even after the suctioning action has stopped, until patient is seen in his office. Leave dressing and battery pack attached. * Attachments The following attachments cannot be sent through Care Everywhere. * Hip Replacement (Anterior): Post-op (Japanese) * Stroke (Japanese) * Constipation (Japanese) * DVT (Deep Vein Thrombosis): General Info (Japanese) * acetaminophen and oxycodone (Japanese) * warfarin (oral) (Japanese) * docusate (oral/rectal) (Japanese) * Enoxaparin (Lovenox) (Japanese) [facility] this [facility] Phone: [phone]) 172-604805-20-2021 History of Present illness Narrative* Naun Byers RN - 07/15/2020 9:30 AM EDT [facility] Joint Replacement Pre-surgical Assessment Scheduled Surgery Date: 08/09/2020 Surgery Time: 1045 Surgeon: OSORIO Procedure: right Total Knee Primary Insurance Coverage MEDICARE PART A&B, 2- [facility] SUPP Pre-op class attended YES 07/15/2020. 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 * Kirstin Singer RN - 07/15/2020 9:30 AM EDT Patient watched the Understanding a Nerve Block video during the PAT visit today. [facility] Work Phone: chief complaint Narrative - ReportedYANELIS NORIEGA is being seen for an initial evaluation of Laureano evaluation.[place] [address] DO Work Phone: Chief complaint Narrative - Reported* YANELIS NORIEGA is being seen for an initial evaluation of Laureano evaluation. * 77-year-old white male was referred to me by Dr. Blu velez for consideration of LAUREANO to rule outASD/PFO. The patient presented recently with symptoms of pain behind his left ear and subsequently had MRI of the brain which demonstrated evidence of lacunar infarctions. His carotid scan was unremarkable and the patient had no focal neurological symptoms. He had transthoracic echocardiogram in [facility] which she read possible PFO. There was minimal enlargement of the artery and the RV and RVSP measured 39 mmHg. Patient denies any symptoms of palpitations or TIA. He has no chest pain orthopnea PND or lower extremity edema and no angina. He has hyperlipidemia hypertension medical therapy and he is a reformed smoker. His EKG reveals no abnormalities of any concern. His examination was normal except for slight overweight. I did review the echo report from [facility] and the other imaging studies. * Assessment/recommendations: * 1 reported PFO on an outside echocardiogram with no indication of performing a bubble study. The referring physician would like for me to consider doing a transesophageal echocardiogram. I suggested to the patient to proceed with simpler measures that are noninvasive such as doing a bubble study. If we have good look at the septum and there is no indication of PFO or shunt across the atrial septum with a bubble study there will be no need to proceed invasively with a transesophageal echocardiogram. The patient currently has no symptoms of neurological deficit and he is already on aspirin and Eliquis. * 2 history of DVT in the past on maintenance therapy with Eliquis without any bleeding complications * 3 hypertension currently on benazepril and amlodipine along with hydrochlorothiazide under control. * 4 hyperlipidemia on small dose of atorvastatin 10 mg daily. Followed by PCP * 5 overweight, encouraged patient to lose weight with diet and exercise [facility] 250 DO Work Phone: Evaluation + Plan note No data available for this section [facility] evaluation note* Diagnosis Primary osteoarthritis of right knee- Primary Primary localized osteoarthrosis, lower leg S/P total knee arthroplasty, right History of DVT (deep vein thrombosis) Personal history of venous thrombosis and embolism documented in this encounter [facility] Phone: evaluation note* Diagnosis Hemarthrosis of right knee- Primary Hemarthrosis, lower leg S/P total knee arthroplasty, right History of DVT (deep vein thrombosis) Personal history of venous thrombosis and embolism PFO (patent foramen ovale) with history of stroke Ostium secundum type atrial septal defect Essential hypertension Unspecified essential hypertension Postoperative anemia due to acute blood loss Acute posthemorrhagic anemia Chronic anticoagulation Encounter for long-term (current) use of anticoagulants documented in this encounter [facility] Phone: evaluation noteNo InformationNort Gold L[employer] Other Evaluation note* Diagnosis Abnormal echocardiogram Nonspecific (abnormal) findings on radiological and other examination of other intrathoracic organs Cerebrovascular accident (CVA), unspecified mechanism (CMS/HCC) documented in this encounter [facility] Work Phone: Evaluation note* Diagnosis Abnormal echocardiogram Nonspecific (abnormal) findings on radiological and other examination of other intrathoracic organs Cerebrovascular accident (CVA), unspecified mechanism (CMS/HCC) documented in this encounter [facility] Work Phone: Evaluation noteNo assessment information available [facility] [place] Work Phone: Evaluation note* Diagnosis Onset Date Resolution Status Chronic obstructive pulmonar y disease with (acute) exacerbation noneactive Acute bronchitis due to other specified organisms noneactive [facility] [place] Work Phone: Evaluation note* Diagnosis Onset Date Resolution Status Chronic obstructive pulmonar y disease with (acute) exacerbation noneactive Acute bronchitis due to other specified organisms noneactive Acute bronchitis due to other specified organisms noneactive Asthma noneactive Chronic obstructive pulmonar y disease with (acute) lower respiratory infection noneactive Acute exacerbation of chroni c obstructive airways disease noneactive [facility] [place] Work Phone: Evaluation note* Diagnosis Onset Date Resolution Status Cerebral atherosclerosis acu te Hx of TIA (transient ischemic attack) and stroke acute Hypercholesteremia acute PFO (patent foramen ovale) a cute Primary hypertension acute Simple chronic bronchitis ac [place]aver [facility] [place] Work Phone: Evaluation note* Diagnosis Onset Date Resolution Status Cerebral atherosclerosis acu te Hx of TIA (transient ischemic attack) and stroke acute Hypercholesteremia acute PFO (patent foramen ovale) a cute Primary hypertension acute Simple chronic bronchitis ac [place] History of left knee replacement acute Painful total knee replacement, left acute [facility] [place] Work Phone: Evaluation note* Diagnosis Onset Date Resolution Status History of left knee replacement acute Painful total knee replacement, left acute [facility] [place] Work Phone: Evaluation note* Diagnosis Pain due to onychomycosis of toenails of both feet- Primary [facility]* Diagnosis Onset Date Resolution Status Hypercoagulable state acute Paronychia acute Toe pain, left acute [facility] [place] Work Phone: History general Narrative - Reported* Type Description Date Medical History High Cholesterol Medical History Hypertension Medical History Arthritis Surgical History Left Total Knee 2016 Surgical History Right shoulder surgery Surgical History Major back surgery (Dr. Salinas) Surgical History hernia Hospitalization History SEE SURGICAL HX [employer] Other Hospital Discharge instructions* Attachments The following attachments cannot be sent through Care Everywhere. * TKR (Total Knee Replacement): Post-op (Japanese) * apixaban (Japanese) [facility] Work Phone: progress note No data available for this section [facility] reason for referral (narrative)* Reason Referral for possibl e ASD with history of cerebral infarction and lower extremity DVT. 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 Noriega is being referred for a remote history of DVT and cerebral infarction with recent finding suggestive of an ASD. Mr. Noriega was being evaluated for possible TIA vs. cerebral infarctions manifesting as altered/blurred vision. 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 A recent echocardiogram suggested an ASD with a left to right shunt. In addition, his echocardiogram revealed SHAWN, RV dilatation and increased RVSP of 39. A LAUREANO was recommended for confirmation. Clinical Notes Include Echocardiogr am, Carotid US, MRA brain and labs [employer] Other Summary Purpose Family History Unknown Family Member Name Dates Details Family history of myasthenia gravis: Mother(V17.89, Z82.0) Status:Active Family history of hypertensi on: Mother(V17.49, Z82.49) Status:Active Family history of diabetes m ellitus: Mother(V18.0, Z83.3) Status:Active Family history of hyperlipid emia: Mother(V18.19, Z83.438) Status:Active Family history of cerebrovas cular accident (CVA): Mother(V17.1, Z82.3) Status:Active Family history of congestive heart failure: Mother, Sister, Brother(V17.49, Z82.49) Status:Active Family history of dementia: Father(V17.2, Z81.8) Status:Active Family history of malignant neoplasm of kidney: Father(V16.51, Z80.51) Status:Active Family history of malignant neoplasm of colon: Sister, Brother(V16.0, Z80.0) Status:Active Family history of malignant neoplasm: Sister, Brother(V16.9, Z80.9) Status:Active Unknown Family Member Name Dates Details Family history of myasthenia gravis: Mother(V17.89, Z82.0) Status:Active Family history of hypertensi on: Mother(V17.49, Z82.49) Status:Active Family history of diabetes m ellitus: Mother(V18.0, Z83.3) Status:Active Family history of hyperlipid emia: Mother(V18.19, Z83.438) Status:Active Family history of cerebrovas cular accident (CVA): Mother(V17.1, Z82.3) Status:Active Family history of congestive heart failure: Mother, Sister, Brother(V17.49, Z82.49) Status:Active Family history of dementia: Father(V17.2, Z81.8) Status:Active Family history of malignant neoplasm of kidney: Father(V16.51, Z80.51) Status:Active Family history of malignant neoplasm of colon: Sister, Brother(V16.0, Z80.0) Status:Active Family history of malignant neoplasm: Sister, Brother(V16.9, Z80.9) Status:Active Relationship Condition Age at Onset Recorded Date/T es father Unknown Not Specified Unknown Relationship Condition Age at Onset Recorded Date/T es father Unknown mother Unknown Advance Directives Latest Code Status on File Code Status Date Activated Date Inactivated Comments Full Code 08/09/2020 9:06 PM Latest Code Status on File Code Status Date Activated Date Inactivated Comments Full Code 08/21/2020 10:04 AM Full Code 08/09/2020 9:06 PM 08/10/2020 2:45 PM Advance Directive Response Recorded Date/ Time Advance Directives No December 15, 2016 1:09pm Advance Directive Response Recorded Date/ Time Advance Directives No December 15, 2016 2:09pm Reason for Referral Specialty Diagnoses / Procedures Referred By Contac t Referred To Contact Cardiology Diagnoses Abnormal echocardiogram Cerebrovascular accident (CVA), unspecified mechanism (CMS/HCC) Procedures Transthoracic Echo (TTE) Limited OH ECHO TRANSTHORC R-T 2D W/WO M-MODE REC F-UP/LMTD OH DOP ECHOCARD COLOR FLOW VELOCITY MAPPING OH DOP ECHOCARD PULSE WAVE W/SPECTRAL F-UP/LMTD STD Teo Johnson MD [address] [place] [id number] Referral ID Status Reason Start Date Expiration Date Visits Requested Visits Authorized [id number] Authorized Perform Procedure 3 12/14/2023 1 1 Chief Complaint and Reason for Visit Chief Complaint Wellness Sore Throat, Congestion- [phone] Chief Complaint Wellness Sore Throat, Congestion- [phone] Wheezy, Congested-COVID Negative Reason for Visit Chronic obstructive pulmonary disease with (acute) exacerbation Acute bronchitis due to other specified organisms Chief Complaint Sore Throat, Congest ion- [phone] Wheezy, Congested-COVID Negative Sick- Wheezy Reason for Visit Chronic obstructive pulmonary disease with (acute) exacerbation Acute bronchitis due to other specified organisms Acute bronchitis due to other specified organisms Asthma Chronic obstructive pulmonary disease with (acute) lower respiratory infection Acute exacerbation of chronic obstructive airways disease Chief Complaint Amb Documentation 6 month follow up Reason for Visit Cerebral atheroscler osis Hx of TIA (transient ischemic attack) and stroke Hypercholesteremia PFO (patent foramen ovale) Primary hypertension Simple chronic bronchitis Chief Complaint Amb Documentation 6 month follow up Z96.652 - Presence of left artificial knee joint NEW LT TKA PAIN NX Reason for Visit Cerebral atheroscler osis Hx of TIA (transient ischemic attack) and stroke Hypercholesteremia PFO (patent foramen ovale) Primary hypertension Simple chronic bronchitis History of left knee replacement Painful total knee replacement, left Chief Complaint Amb Documentation 6 month follow up Z96.652 - T84.84XA NEW LT TKA PAIN NX Reason for Visit Cerebral atheroscler osis Hx of TIA (transient ischemic attack) and stroke Hypercholesteremia PFO (patent foramen ovale) Primary hypertension Simple chronic bronchitis History of left knee replacement Painful total knee replacement, left Chief Complaint Z96.652 - T84.84XA NEW LT TKA PAIN NX toe infection Reason for Visit History of left knee replacement Painful total knee replacement, left Chief Complaint toe infection flu shot Reason for Visit Hypercoagulable stat e Paronychia Toe pain, left Additional Source Comments (unrecognized sect ion and content) No Status Records FoundNo Status Records FoundNo Status Records FoundNo Status Records FoundNo Status Records FoundNo Status Records FoundNo Status Records FoundNo Status Records FoundNo Status Records FoundNo Status Records Found INFORMATION SOURCE (unrecogn ized section and content) DATE CREATED AUTHOR 08/14/2017 [facility] DATE CREATED AUTHOR AUTHOR'S ORGANIZ ATION 08/22/2020 [facility] DATE CREATED AUTHOR AUTHOR'S ORGANIZ ATION 02/24/2022 [facility] DATE CREATED AUTHOR AUTHOR'S ORGANIZ ATION 08/31/2022 [facility] DATE CREATED AUTHOR AUTHOR'S ORGANIZ ATION 11/10/2022 [facility] DATE CREATED AUTHOR AUTHOR'S ORGANIZ ATION 11/12/2022 [facility] DATE CREATED AUTHOR AUTHOR'S ORGANIZ ATION 03/28/2023 [facility] DATE CREATED AUTHOR AUTHOR'S ORGANIZ ATION 09/15/2023 [facility] DATE CREATED AUTHOR AUTHOR'S ORGANIZ ATION 10/10/2023 [facility] DATE CREATED AUTHOR AUTHOR'S ORGANIZ ATION 12/15/2023 [facility] EPIC Reason for Visit (unrecogniz ed section and content) Status Reason Specialty Diagnoses / Procedures Referre d By Contact Referred To Contact Diagnoses Osteoarthritis of right knee DX RIGHT KNEE OA Procedures OH TOTAL KNEE ARTHROPLASTY RIGHT KNEE TOTAL ARTHROPLASTY- DEPUY Elisa Ferraro MD [address] [facility]/ [place] [address] [facility] Specialty Diagnoses / Procedures Referred By Contac t Referred To Contact Cardiology Diagnoses Abnormal echocardiogram Cerebrovascular accident (CVA), unspecified mechanism (CMS/HCC) Procedures Transthoracic Echo (TTE) Limited OH ECHO TRANSTHORC R-T 2D W/WO M-MODE REC F-UP/LMTD OH DOP ECHOCARD COLOR FLOW VELOCITY MAPPING OH DOP ECHOCARD PULSE WAVE W/SPECTRAL F-UP/LMTD STD Teo Johnson MD [address] [id number] Referral ID Status Reason Start Date Expiration Date Visits Requested Visits Authorized [id number] Authorized Perform Procedure 3 12/14/2023 1 1 Reason Comments Toenail Care Non DM Nails Ordered Prescriptions (unrec ognized section and content) Prescription Sig Dispensed Refills Start Date End Da te enoxaparin (LOVENOX) 80 MG/0.8ML injection Inject 0.8 mLs into the skin 2 times daily for 7 days 11.2 mL 0 08/10/2020 08/17/2020 Prescription Sig Dispensed Refills Start Date End Da te oxyCODONE-acetaminophen (PERCOCET) 5-325 MG per tabletIndications:S/P total knee arthroplasty, right Take 1 tablet by mouth every 4 hours as needed for Pain for up to 7 days. 42 tablet 0 08/22/2020 08/29/2020 apixaban (ELIQUIS) 5 MG TABS tablet Take 1 tablet by mouth 2 times daily 60 tablet 0 08/22/2020 09/21/2020 apixaban (ELIQUIS) 5 MG TABS tablet Take 1 tablet by mouth 2 times daily 60 tablet 0 08/22/2020 08/22/2020 oxyCODONE-acetaminophen (PERCOCET) 5-325 MG per tabletIndications:S/P total knee arthroplasty, right Take 1 tablet by mouth every 4 hours as needed for Pain for up to 7 days. 42 tablet 0 08/22/2020 08/22/2020 Scheduled Active and Recently Administ ered Medications (unrecognized section and content) Medication Order 08/08/2020 08/09/2020 08/10/2020 acetaminophen (TYLENOL) tablet 1,000 mg (COMPLETED) 1,000 mg, Oral, ONCE, On Sun08/09/20 at 0830, For 1 dose, PreOp nurse to check with anesthesiologist prior to administering the medication on the day of surgery., Pre-op (day of surgery) 1003 (Given - Provider: Eugenie Avalos RN) acetaminophen (TYLENOL) tablet 650 mg 650 mg, Oral, EVERY 6 HOURS, First dose on Sun08/09/20 at 2200, Maximum dose of acetaminophen is 4000 mg from all sources in 24 hours., Post-op 2151 (Given - Provider: Shey Jackson RN) 0319 (Given - Provider: Shey Jackson RN)0915 (Given - Provider: Stella Jacobs RN)1600 (Due)2200 (Due) ceFAZolin (ANCEF) 2000 mg in dextrose 5 % 50 mL IVPB (COMPLETED) 2,000 mg, Intravenous, ONCE, 1 dose, On Sun08/09/20 at 0830, Pre-op (day of surgery) 1155 (Given - Provider: Darío Yancey APRN - DIRECTOR OF [employer]) docusate sodium (COLACE) capsule 100 mg 100 mg, Oral, 2 TIMES DAILY, First dose on Sun08/10/20 at 1000, Do not crush or break. 1051 (Given - Provider: Stella Jacobs RN)2100 (Due) enoxaparin (LOVENOX) injection 40 mg (COMPLETED) 40 mg, Subcutaneous, ONCE, On Sun08/10/20 at 0900, For 1 dose 0915 (Given - Provider: Stella Jacobs RN) gabapentin (NEURONTIN) capsule 300 mg (COMPLETED) 300 mg, Oral, ONCE, On Sun08/09/20 at 0830, For 1 dose, PreOp nurse to check with anesthesiologist prior to administering the medication on the day of surgery., Pre-op (day of surgery) 1003 (Given - Provider: Eugenie Avalos RN) sodium chloride flush 0.9 % injection 5-40 mL 5-40 mL, Intravenous, EVERY 12 HOURS SCHEDULED (2 times per day), First dose on Sun08/09/20 at 2130, For Line Patency: Peripheral IV = 5 mL; Midline or Central Line = 10 mL/lumen. If following IV push medication, administer flush at same rate as the IV push. Flush volume is determined by type of infusion therapy being given. For non-viscous solutions use: Peripheral IV = 5 mL Midline or Central Line = 10 mL/lumen For viscous solutions (i.e. blood components, parenteral nutrition, contrast media, or after obtaining blood sample) use: Peripheral IV = 10 mL Midline or Central Line = 20 mL/lumen, Post-op 2145 (Given - Provider: Shey Jackson RN) 0916 (Given - Provider: Stella Jacobs RN)2100 (Due) warfarin (COUMADIN) daily dosing (placeholder) This patient is currently receiving daily warfarin. Please check INR's and signs/symptoms of bleeding and bruising as appropriate. 2245 (Due) warfarin (COUMADIN) tablet 2 mg (COMPLETED) 2 mg, Oral, ONCE Warfarin, On Sun08/09/20 at 2130, For 1 dose, Review INR prior to administration. Hazardous med- See facility policy for handling/disposal, Multiphase Phase of Care, Today 2300 (Given - Provider: Shey Jackson RN) Continuous Medication Order 08/08/2020 08/09/2020 08/10/2020 lactated ringers infusion Intravenous, at 100 mL/hr, CONTINUOUS, Starting on Sun08/09/20 at 1030, Pre-op (day of surgery) 1007 (New Bag - Provider: Eugenie Avalos RN)1308 (Paused - Provider: SHI Lopez CRNA - Comment: Switch to gravity)1309 (New Bag - Provider: SHI Lopez CRNA)1438 (Anesthesia Volume Adjustment - Provider: SHI Lopez CRNA) 0925 (New Bag - Provider: Stella Jacobs RN) lactated ringers infusion (CANCELED) Intravenous, at 125 mL/hr, CONTINUOUS, Starting on Sun08/09/20 at 2130, Post-op 2146 (New Bag - Provider: Shey Jackson RN) PRN Medication Order 08/08/2020 08/09/2020 08/10/2020 0.9 % sodium chloride infusion 25 mL, Intravenous, at 100 mL/hr, PRN, If patient receiving piggyback infusions without ordered maintenance IV fluids or with frequent/long duration piggyback infusions, Starting on Sun08/09/20 at 2106, Administer at the same rate as the piggyback being infused., Post-op EPINEPHrine (EPINEPHrine HCL) 0.3 mL, morphine (PF) 4 mg, ropivacaine (NAROPIN) 60 mL, sodium chloride bacteriostatic 0.9% 39.5 mL (CANCELED) PRN, Starting on Sun08/09/20 at 1238, Intra-op 1338 (Given - Provider: Elisa Ferraro MD - Comment: vancomycin 1 gm added to mixture) fentaNYL (SUBLIMAZE) injection 25 mcg (CANCELED) 25 mcg, Intravenous, EVERY 5 MIN PRN, Pain Moderate (4-6), Starting on Sun08/09/20 at 0823, For 4 doses, Phase I - Initial therapy for moderate pain., PACU only 1727 (Given - Provider: Basia Apple RN) fentaNYL (SUBLIMAZE) injection 50 mcg (COMPLETED) 50 mcg, Intravenous, EVERY 5 MIN PRN, Pain Severe (7-10), Starting on Sun08/09/20 at 0823, For 4 doses, Phase I - Initial therapy for severe pain., PACU only 1452 (Given - Provider: Basia Apple RN)1504 (Given - Provider: Basia Apple RN)1524 (Given - Provider: Basia Apple RN)1554 (Given - Provider: Basia Apple RN) lubrifresh P.M. (artificial tears) ophthalmic ointment (COMPLETED) Left Eye, EVERY 2 HOURS PRN, Other, eye irritation, Starting on Sun08/09/20 at 2209, For 1 dose 0039 (Given - Provid er: Shey Jackson RN) morphine (PF) injection 2 mg(Linked Group 1) 2 mg, Intravenous, EVERY 2 HOURS PRN, Pain Moderate (4-6), Starting on Sun08/09/20 at 2106, If oral and IV narcotics ordered, use oral first and only use IV if oral is ineffective or cannot take oral. Do Not give oral and IV within 1 hour of each other unless specifically ordered., Post-op morphine sulfate (PF) injection 4 mg(Linked Group 1) 4 mg, Intravenous, EVERY 2 HOURS PRN, Pain Severe (7-10), Starting on Sun08/09/20 at 2106, If oral and IV narcotics ordered, use oral first and only use IV if oral is ineffective or cannot take oral. Do Not give oral and IV within 1 hour of each other unless specifically ordered., Post-op ondansetron (ZOFRAN) injection 4 mg(Linked Group 2) 4 mg, Intravenous, EVERY 6 HOURS PRN, Nausea, Vomiting, Starting on Sun08/09/20 at 2106, Administer if oral route cannot be used., Post-op oxyCODONE (ROXICODONE) immediate release tablet 10 mg(Linked Group 3) 10 mg, Oral, EVERY 4 HOURS PRN, Pain Severe (7-10), Starting on Sun08/09/20 at 2106, Post-op 2146 (Given - Provider: Shey Jackson RN) 0517 (Given - Provider: Shey Jackson RN) oxyCODONE (ROXICODONE) immediate release tablet 5 mg(Linked Group 3) 5 mg, Oral, EVERY 4 HOURS PRN, Pain Moderate (4-6), Starting on Sun08/09/20 at 2106, Post-op 2146 (See Alternative - Provider: Shey Jackson RN) 0517 (See Alternative - Provider: Shey Jackson RN) promethazine (PHENERGAN) tablet 12.5 mg(Linked Group 2) 12.5 mg, Oral, EVERY 6 HOURS PRN, Nausea, Vomiting, Starting on Sun08/09/20 at 2106, Post-op sodium chloride 0.9 % irrigation (COMPLETED) CONTINUOUS PRN, Starting on Sun08/09/20 at 1340, Intra-op 1340 (New Bag - Provider: Elisa Ferraro MD) sodium chloride flush 0.9 % injection 5-40 mL 5-40 mL, Intravenous, PRN, Line Care, Starting on Sun08/09/20 at 2106, After every IV line use, Post-op Linked Groups Order Group 1: morphine (PF) injection 2 mgJump to med 2 mg, Intravenous, EVERY 2 HOURS PRN, Pain Moderate (4-6), Starting on Sun08/09/20 at 2106
If oral and IV narcotics ordered, use oral first and only use IV if oral is ineffective or cannot take oral. Do Not give oral and IV within 1 hour of each other unless specifically ordered.
Post-op Or morphine sulfate (PF) injection 4 mgJump to med 4 mg, Intravenous, EVERY 2 HOURS PRN, Pain Severe (7-10), Starting on Sun08/09/20 at 2106
If oral and IV narcotics ordered, use oral first and only use IV if oral is ineffective or cannot take oral. Do Not give oral and IV within 1 hour of each other unless specifically ordered.
Post-op Group 2: promethazine (PHENERGAN) tablet 12.5 mgJump to med 12.5 mg, Oral, EVERY 6 HOURS PRN, Nausea, Vomiting, Starting on Sun08/09/20 at 2106, Post-op Or ondansetron (ZOFRAN) injection 4 mgJump to med 4 mg, Intravenous, EVERY 6 HOURS PRN, Nausea, Vomiting, Starting on Sun08/09/20 at 2106
Administer if oral route cannot be used.
Post-op Group 3: oxyCODONE (ROXICODONE) immediate release tablet 5 mgJump to med 5 mg, Oral, EVERY 4 HOURS PRN, Pain Moderate (4-6), Starting on Sun08/09/20 at 2106, Post-op Or oxyCODONE (ROXICODONE) immediate release tablet 10 mgJump to med 10 mg, Oral, EVERY 4 HOURS PRN, Pain Severe (7-10), Starting on Sun08/09/20 at 2106, Post-op Scheduled Medication Order 08/20/2020 08/21/2020 08/22/2020 sodium chloride flush 0.9 % injection 5-40 mL 5-40 mL, Intravenous, EVERY 12 HOURS SCHEDULED (2 times per day), First dose on 08/21/20 at 1030, For Line Patency: Peripheral IV = 5 mL; Midline or Central Line = 10 mL/lumen. If following IV push medication, administer flush at same rate as the IV push. Flush volume is determined by type of infusion therapy being given. For non-viscous solutions use: Peripheral IV = 5 mL Midline or Central Line = 10 mL/lumen For viscous solutions (i.e. blood components, parenteral nutrition, contrast media, or after obtaining blood sample) use: Peripheral IV = 10 mL Midline or Central Line = 20 mL/lumen 1147 (Given - Provider: Lawanda Scott RN)2036 (Given - Provider: Katherine Hooper RN) 0822 (Given - Provider: Lawanda Scott RN)2100 (Due) Continuous Medication Order 08/20/2020 08/21/2020 08/22/2020 0.9 % sodium chloride infusion (CANCELED) Intravenous, at 75 mL/hr, CONTINUOUS, Starting on 08/21/20 at 1030 1146 (New Bag - Provider: Lawanda Scott RN) PRN Medication Order 08/20/2020 08/21/2020 08/22/2020 0.9 % sodium chloride infusion 25 mL, Intravenous, at 100 mL/hr, PRN, If patient receiving piggyback infusions without ordered maintenance IV fluids or with frequent/long duration piggyback infusions, Starting on 08/21/20 at 1004, Administer at the same rate as the piggyback being infused. acetaminophen (TYLENOL) suppository 650 mg(Linked Group 1) 650 mg, Rectal, EVERY 6 HOURS PRN, Pain Mild (1-3), Fever, For temp greater than 100.4 F (38 C), Starting on 08/21/20 at 1004, Administer if oral route cannot be used. acetaminophen (TYLENOL) tablet 650 mg(Linked Group 1) 650 mg, Oral, EVERY 6 HOURS PRN, Pain Mild (1-3), Fever, For temp greater than 100.4 F (38 C), Starting on 08/21/20 at 1004, Maximum dose of acetaminophen is 4000 mg from all sources in 24 hours. HYDROmorphone (DILAUDID) injection 0.25 mg(Linked Group 2) 0.25 mg, Intravenous, EVERY 3 HOURS PRN, Pain Moderate (4-6), Starting on 08/21/20 at 1004, If oral and IV narcotics ordered, use oral first and only use IV if oral is ineffective or cannot take oral. Do Not give oral and IV within 1 hour of each other unless specifically ordered. HYDROmorphone (DILAUDID) injection 0.5 mg(Linked Group 2) 0.5 mg, Intravenous, EVERY 3 HOURS PRN, Pain Severe (7-10), Starting on 08/21/20 at 1004, If oral and IV narcotics ordered, use oral first and only use IV if oral is ineffective or cannot take oral. Do Not give oral and IV within 1 hour of each other unless specifically ordered. magnesium sulfate 1000 mg in dextrose 5% 100 mL IVPB 1,000 mg, Intravenous, at 100 mL/hr, Administer over 1 Hours, PRN, Other, Per IV Magnesium Replacement Protocol, Starting on 08/21/20 at 1004, Mg Lab Replacement Action 1.4-1.6 1 gram IVPB x 2 doses (2 gram Total) 1.0-1.3 1 gram IVPB x 4 doses (4 gram Total) <1.0 CALL PHYSICIAN and 1 gram IVPB x 4 doses (4 gram Total) Infuse at 1 gram/hr Repeat Mag level next AM Protocol not for use in Patients with CrCl<30ml/min ondansetron (ZOFRAN) injection 4 mg(Linked Group 3) 4 mg, Intravenous, EVERY 6 HOURS PRN, Nausea, Vomiting, Starting on 08/21/20 at 1004, Administer if oral route cannot be used. ondansetron (ZOFRAN-ODT) disintegrating tablet 4 mg(Linked Group 3) 4 mg, Oral, EVERY 8 HOURS PRN, Nausea, Vomiting, Starting on 08/21/20 at 1004 oxyCODONE-acetaminophen (PERCOCET) 5-325 MG per tablet 1 tablet(Linked Group 4) 1 tablet, Oral, EVERY 4 HOURS PRN, Pain Moderate (4-6), Starting on 08/21/20 at 1004, Maximum dose of acetaminophen is 4000 mg from all sources in 24 hours. 1200 (See Alternative - Provider: Lawanda Scott RN)2036 (See Alternative - Provider: Katherine Hooper RN) 0822 (Given - Provider: Lawanda Scott RN)1228 (Given - Provider: Lawanda Scott RN) oxyCODONE-acetaminophen (PERCOCET) 5-325 MG per tablet 2 tablet(Linked Group 4) 2 tablet, Oral, EVERY 4 HOURS PRN, Pain Severe (7-10), Starting on 08/21/20 at 1004, Maximum dose of acetaminophen is 4000 mg from all sources in 24 hours. 1200 (Given - Provider: Lawanda Scott, ILYA)2036 (Given - Provider: Katherine Hooper RN) 0822 (See Alternative - Provider: Lawanda Scott RN)1228 (See Alternative - Provider: Lawanda Scott RN) polyethylene glycol (GLYCOLAX) packet 17 g 17 g, Oral, DAILY PRN, Constipation, Starting on 08/21/20 at 1004, First line therapy for constipation potassium bicarb-citric acid (EFFER-K) effervescent tablet 40 mEq(Linked Group 5) 40 mEq, Oral, PRN, Per Potassium Replacement Protocol, Starting on 08/21/20 at 1004, Administer as alternative if patient unable to tolerate oral tablet. K Lab Replacement Action 3.1 to 3.5 40 mEq ORAL x 1 Under 3.1 Refer to IV replacement protocol Recheck K level in AM. Protocol not for use in patients with CrCl less than 30 mL/min. Do not chew or crush. Dissolve flavored tablets completely in 3 to 4 ounces of cold water; unflavored tablets may be dissolved in 3 to 4 ounces of cold juice. Patient to sip slowly over a 5 to 10 minute period. May further dilute if GI adverse effects occur. potassium chloride (KLOR-CON M) extended release tablet 40 mEq(Linked Group 5) 40 mEq, Oral, PRN, Potassium Replacement, Starting on 08/21/20 at 1004, May give oral solution if patient unable to tolerate tablet. K Lab Replacement Action 3.1-3.5 40 mEq ORAL x 1 2.7-3.0 Refer to IV replacement orders < 2.7 Refer to IV replacement orders Recheck K level in AM. Not for use in patients with CrCl less than 30 mL/min. potassium chloride 10 mEq/100 mL IVPB (Peripheral Line)(Linked Group 5) 10 mEq, Intravenous, at 100 mL/hr, PRN, Potassium Replacement, Starting on 08/21/20 at 1004, K Lab Replacement Action 2.7-3.0 10 mEq IVPB x 6 doses (60 mEq Total) < 2.7 CALL PHYSICIAN and 10 mEq IVPB x 6 doses (60 mEq Total) Infuse at 10 mEq/hr Repeat Potassium lab 1 hour after final administration. Not for use in patients with CrCl less than 30 mL/min. sodium chloride flush 0.9 % injection 10 mL 10 mL, Intravenous, PRN, Line Care, After every IV line use, Starting on 08/21/20 at 1004 Linked Groups Order Group 1: acetaminophen (TYLENOL) tablet 650 mgJump to med 650 mg, Oral, EVERY 6 HOURS PRN, Pain Mild (1-3), Fever, For temp greater than 100.4 F (38 C), Starting on 08/21/20 at 1004
Maximum dose of acetaminophen is 4000 mg from all sources in 24 hours.
Or acetaminophen (TYLENOL) suppository 650 mgJump to med 650 mg, Rectal, EVERY 6 HOURS PRN, Pain Mild (1-3), Fever, For temp greater than 100.4 F (38 C), Starting on 08/21/20 at 1004
Administer if oral route cannot be used.
Group 2: HYDROmorphone (DILAUDID) injection 0.25 mgJump to med 0.25 mg, Intravenous, EVERY 3 HOURS PRN, Pain Moderate (4-6), Starting on 08/21/20 at 1004
If oral and IV narcotics ordered, use oral first and only use IV if oral is ineffective or cannot take oral. Do Not give oral and IV within 1 hour of each other unless specifically ordered.
Or HYDROmorphone (DILAUDID) injection 0.5 mgJump to med 0.5 mg, Intravenous, EVERY 3 HOURS PRN, Pain Severe (7-10), Starting on 08/21/20 at 1004
If oral and IV narcotics ordered, use oral first and only use IV if oral is ineffective or cannot take oral. Do Not give oral and IV within 1 hour of each other unless specifically ordered.
Group 3: ondansetron (ZOFRAN-ODT) disintegrating tablet 4 mgJump to med 4 mg, Oral, EVERY 8 HOURS PRN, Nausea, Vomiting, Starting on 08/21/20 at 1004 Or ondansetron (ZOFRAN) injection 4 mgJump to med 4 mg, Intravenous, EVERY 6 HOURS PRN, Nausea, Vomiting, Starting on 08/21/20 at 1004
Administer if oral route cannot be used.
Group 4: oxyCODONE-acetaminophen (PERCOCET) 5-325 MG per tablet 1 tabletJump to med 1 tablet, Oral, EVERY 4 HOURS PRN, Pain Moderate (4-6), Starting on 08/21/20 at 1004
Maximum dose of acetaminophen is 4000 mg from all sources in 24 hours.
Or oxyCODONE-acetaminophen (PERCOCET) 5-325 MG per tablet 2 tabletJump to med 2 tablet, Oral, EVERY 4 HOURS PRN, Pain Severe (7-10), Starting on 08/21/20 at 1004
Maximum dose of acetaminophen is 4000 mg from all sources in 24 hours.
Group 5: potassium chloride (KLOR-CON M) extended release tablet 40 mEqJump to med 40 mEq, Oral, PRN, Potassium Replacement, Starting on 08/21/20 at 1004
May give oral solution if patient unable to tolerate tablet. K Lab Replacement Action 3.1-3.5 40 mEq ORAL x 1 & nbsp; 2.7-3.0 Refer to IV replacement orders < 2.7 Refer to IV replacement orders Recheck K level in AM. Not for use in patients with CrCl less than 30 mL/min.
Or potassium bicarb-citric acid (EFFER-K) effervescent tablet 40 mEqJump to med 40 mEq, Oral, PRN, Per Potassium Replacement Protocol, Starting on 08/21/20 at 1004
Administer as alternative if patient unable to tolerate oral tablet. K Lab R [facility] ement Action 3.1 to 3.5 40 mEq ORAL x 1 Under 3.1 Refer to IV replacement protocol Recheck K level in AM. Protocol not for use in patients with CrCl less than 30 mL/min. Do not chew or crush. Dissolve flavored tablets completely in 3 to 4 ounces of cold water; unflavored tablets may be dissolved in 3 to 4 ounces of cold juice. Patient to sip slowly over a 5 to 10 minute period. May further dilute if GI adverse effects occur.
Or potassium chloride 10 mEq/100 mL IVPB (Peripheral Line)Jump to med 10 mEq, Intravenous, at 100 mL/hr, PRN, Potassium Replacement, Starting on 08/21/20 at 1004
K Lab Replacement Action 2.7-3.0 10 mEq IVPB x 6 doses (60 mEq Total) < 2.7 CALL PHYSICIAN and 10 mEq IVPB x 6 doses (60 mEq Total) Infuse at 10 mEq/hr Repeat Potassium lab 1 hour after final administration. Not for use in patients with CrCl less than 30 mL/min.
Patient Care team informatio n (unrecognized section and content) Team Status: Active Member Role Status Dates Blu Velez DO Primary Care Provider Active Team Status: Inactive Member Role Status Dates Blu Velez DO Primary Care Provider Active Start: September 12, 2023 End: September 12, 2023 Yogesh Jacob II, MD Attending Provider Active Start: September 12, 2023 End: September 12, 2023 Team Status: Inactive Member Role Status Dates Blu Ball , DO Primary Care Provide r, Attending Provider Active Start: November 20, 2023 End: November 20, 2023 Team Status: Active Member Role Status Dates Provider Conversion Attending Provider Active St art: March 26, 2023 Team Status: Inactive Member Role Status Dates Blu Velez DO Primary Care Provide r, Attending Provider Active Start: April 11, 2023 End: April 11, 2023 Team Status: Inactive Member Role Status Dates Blu Velez DO Primary Care Provide r, Attending Provider Active Start: April 19, 2023 End: April 19, 2023 Team Status: Inactive Member Role Status Dates Blu Velez DO Primary Care Provide r, Attending Provider Active Start: May 10, 2023 End: May 10, 2023 Manager Garden Relationship Specialty Start Date End Date Blu Velez DO [address] [place] [address] PCP - General 11/09/22 Manager Garden Relationship Specialty Start Date End Date Blu Velez DO PCP - General 11/09/22 Team Status: Inactive Member Role Status Dates Blu Velez DO Attending Provider Active Sta rt: February 08, 2023 End: February 08, 2023 Team Status: Active Member Role Status Dates Blu Velez DO Primary Care Provider Active Start: July 17, 2023 RAMBO Viramontes Attending Provider Active Start : July 17, 2023 Team Status: Inactive Member Role Status Dates Blu Velez DO Primary Care Provide r, Attending Provider Active Start: August 10, 2023 End: August 10, 2023 Team Status: Active Member Role Status Dates Blu Velez DO Primary Care Provider Active Start: September 12, 2023 Yogesh Jacob II, MD Attending Provider Active Start: September 12, 2023 Manager Garden Relationship Specialty Start Date End Date Blu Velez MD [address] [place] [id number] PCP - General Internal Medicine 03/01/23 Manager Garden Relationship Specialty Start Date End Date Blu Velez MD [address] [place] [id number] PCP - General Internal Medicine 03/01/23 Team Status: Inactive Member Role Status Dates Blu Velez , DO Primary Care Provide r, Attending Provider Active Start: December 19, 2023 End: December 19, 2023 Goals (unrecognized section and content) Goals may be documented in a n alternate section FOR RECORDS PERTAINING TO PATIENTS WHO ARE OR HAVE BEEN ENROLLED IN A CHEMICAL DEPENDENCY/SUBSTANCEABUSE PROGRAM, SOME INFORMATION MAY BE OMITTED. This clinical summary was aggregated from multiple sources. Caution should be exercised in using it in the provision of clinical care. This summary normalizes information from multiple sources, and as a consequence, information in this document may materially change the coding, format and clinical context of patient data. In addition, data may be omitted in some cases. CLINICAL DECISIONS SHOULD BE BASED ON THE PRIMARY CLINICAL RECORDS. [facility] [email or web address] [facility] provides no warranty or guarantee of the accuracy or completeness of information in this document.
[2024-02-09 07:48] LABS: Basophils Absolute Auto 0.1 10^3/uL (0.0-0.1); Eosinophils Absolute Auto 0.6 10^3/uL (0.0-0.7); Eosinophils Percent Auto 12.2 % (0.9-7.0); Hematocrit 42.9 % (42.0-54.0); Immature Granulocytes Abs Auto 0.01 10^3/uL (0.00-0.03); Immature Granulocytes Pct Auto 0.2 % (0.0-0.5); Lymphocytes Absolute Auto 1.8 10^3/uL (1.2-3.8); Mean Corpuscular Hemoglobin 32.9 pg (25.9-34.0); Mean Corpuscular Volume 94.1 fL (80.0-94.0); Mean Platelet Volume 10.3 fL (9.5-13.5); Monocytes Absolute Auto 0.5 10^3/uL (0.3-0.8); Monocytes Percent Auto 10.1 % (1.7-12.0); Neutrophils Absolute Auto 1.9 10^3/uL (1.4-6.5); Neutrophils Percent Auto 38.5 % (43.0-75.0); Platelet Count 137 10^3/uL (150-450); Red Blood Count 4.56 10^6/uL (4.70-6.10); Red Cell Distribution Width 12.1 % (11.0-15.0); White Blood Count 4.8 10^3/uL (4.0-11.0)
[2024-02-09 08:23] LABS: Alanine Aminotransferase 20 U/L (16-63); Albumin Globulin Ratio 1.2; Albumin Level 3.7 g/dL (3.4-5.0); Alkaline Phosphatase 65 U/L (46-116); Anion Gap 12.1; Aspartate Amino Transferase 17 U/L (15-37); BUN Creatinine Ratio 20.2; Chloride 107 mmol/L (98-107); Chol HDL Ratio 3.6; Cholesterol 212 mg/dL (<=200); Estimated GFR (African America >60 (>=60 mL/min/1.73m^2); Estimated GFR (Non-African Ame >60 (>=60 mL/min/1.73m^2); Globulin 3.1 g/dL; Glucose 112 mg/dL (74-106); HDL Cholesterol 59 mg/dL (40-60); Potassium 5.1 mmol/L (3.5-5.1); Sodium 144 mmol/L (136-145); Total Protein 6.8 g/dL (6.4-8.2); Triglycerides 136 mg/dL (<=150); VLDL CHOLESTEROL 27.2 mg/dL
[2024-02-09 08:37] LABS: Prostate Specific Antigen Scrn 0.75 ng/mL (<=4.00)
== END 2024-02-09 07:33 | disposition home or self-care (01) ==
LOC: LAB 07:32
PROVIDERS: PCP Internal Medicine; Visit Provider Internal Medicine
DX: D68.59 Other primary thrombophilia (principal); I10 Essential (primary) hypertension; E78.00 Pure hypercholesterolemia, unspecified; I67.2 Cerebral atherosclerosis; Z12.5 Encounter for screening for malignant neoplasm of prostate
CPT/HCPCS: 36415; 80053; 80061; 85025; G0103

== ENCOUNTER 2024-09-01 20:53 | Outpatient (OUT) | payer MEDICARE, SELFPAY ==
--- OUTSIDE RECORDS SUMMARY | 2021-12-12 09:15 | XMS_ITS | Continuity of Care Document ---
Author Organization [facility] Address [address] [place] [address] Phone Care Team Providers Care Quality Associate Name Role Phone Saleem Zhou MD Unavailable Unavailable Allergies, Adverse Reactions, Alerts Substance Reaction Status Criticality trimethoprim Active No Information sulfamethoxazole rash and hives(moderate) Active No Information iodine rash and hives(moderate) Active No Information Medications Medication Instructions Dosage Effective Dates (start - stop) Status Comments CoQ-10 100 mg capsule - Active folic acid 0.8 mg capsule as needed - Active Vitamin D3 100 mcg (4,000 unit) capsule - Active Vitamin C 100 mg tablet - Active Vitamin B-12 100 mcg tablet - Active Jantoven 2 mg tablet take 1 tablet by or al route on M, W, F, Sat and Sun and 3mg on Tues and Thurs - Active benazepril 20 mg tablet take 1 tablet by oral route every day 20 MG - Active atorvastatin 10 mg tablet take 1 tablet by oral route every day 10 MG - Active Procedures Procedure Date Ophthal DX Image Post Retina I And R Uni Or Bi Eye Exam Established Patient Comprehensi ve 1 Or More Visits Fundus Photography With I And R Prema l Eye Exam Established Patient Comprehensi ve 1 Or More Visits Fundus Photos New Patient, Moderate Advance Directives Directive Yes / No Effective Date File Name No Information Encounters Encounter Description Practice Location Reason(s) For Visit Diagnoses Date Provider Providers Copied on Encounter [facility], [address], [place], [address], [place] tel:[phone] [facility] Hypertensive retinopathy (chief complaint) Hypertensive retinopathy, bilateralBenign neoplasm of left choroidOther vitreous opacities, bilateralEssential (primary) hypertensionRetina l hemorrhage, right eye Oct-1 2 [facility] Monge. [address], [address], [place], [place], [id number] , [place]. tel:[phone] Referring Provider: [address], [place], [address]. tel:[phone] [facility], [address] [place], [address], [place] tel:[phone] [facility] Retinal Hemorrhage (chief complaint)den ies any vision changes (chief complaint) Retinal hemorrhage, right eyeBenign neoplasm of left choroidOther vitreous opacities, bilateralHypertens sarah retinopathy, bilateralEssential (primary) hypertension Feb-0 1 [facility]ardoton[facility] Monge. [address], [address], [place], [place], [id number] , [place]. tel:[phone] Referring Provider: [address], [place], [address]. tel:[phone] New Patient, Moderate [facility], [address] [place], [address], [place] [phone] [facility] ref for retinal hemorrage (chief complaint)mally romero of any vision changes (chief complaint)Add itional Information (chief complaint) Retinal hemorrhage, right eyeBenign neoplasm of left choroidRetinal telangiectasis, left eyePresence of intraocular lens Sep-1 8 Orgel Taylor. [address], [address], [place], [place], [id number] , [place]. tel:[phone] Referring Provider: [address], [place], [address]. tel:[phone] Family History Family Member Type Diagnosis Age At Onset Mother Problem (finding) stroke Father Problem (finding) hypertension Problem (finding) Family history of diabetes mellitus type 2 Mother Problem (finding) myasthenia gravis Payers Payer name Insurance type Covered democrat ID Authoriza tion(s) Medicare [place] [id number] [facility] Healthcare Supplement [id number] Social History Type Description Quantity Date Captured Comments Alcohol Use Details No Caffeine Use Details coffee 2 cups per day Tobacco Use Status No Information Smoking Status Former smoker Sex Male Vital Signs Date / Time: Height Weight BMI Pulse Rate Blood Pressure Temperature Respiratory Rate Body Surface Area Head Circumference Head Circ. Percentile Wt./Naldo. Percentile BMI percentile Pulse Ox Inhaled Ox 1:04 PM 164/84 mm[Hg] Chief Complaint And Reason For Visit From encounter dated '12/12/2021 13:15'. Hypertensive retinopathy (chief complaint). Description: The 76 year old male presents for 8 month evaluation. Patient states that after he reads awhile he has blurred vision. Patient states that he has not had a glasses change in over two years . He mainly wears glasses to read. Reason For Referral Reason For Referral No Information Plan Of Treatment Date Type Action Status Goal Tobacco cessation counseling completed History Of Present Illness Encounter Date Complaint History Of Prese nt Illness Hypertensive retinopathy The 76 year old male presents for 8 month evaluation. Patient states that after he reads awhile he has blurred vision. Patient states that he has not had a glasses change in over two years . He mainly wears glasses to read. denies any vision changes The sis maldonado denies any vision changes in the right and left eye since his last exam with us over 2 years ago. It occurs constantly. The onset was gradual. He does not wear any correction for distance and just readers as needed for near vision tasks. Patient denies any floaters or flashes of light in either eye. He is on Coumadin and Atorvastatin for blood pressure. No eye pain or ocular irritation on either eye. Retinal Hemorrhage The 75 year o ld male presents for evaluation of Retinal Hemorrhage in the right eye per Dr. Carranza. Additional Information BP 140/80 unaware of any vision changes Th e patient is unaware of any vision changes in both eyes since last exam about 3 years ago . It affects both near and far vision. The symptom is constant. In addition,the condition is associated with daily activity and chores. The patient denies eye pain, flashes. ref for retinal hemorrage The 72 year old male presents for evaluation of ref for retinal hemorrhage in the right eye and left eye. Functional Status Date Functional Assessmen t No Information Instructions Date Instruction Additional Infor charley Nov- Return in Related to Hyper tensive retinopathy, bilateral Impression/Plan Related to Hyper tensive retinopathy, bilateral Impression/Plan Related to Benig n neoplasm of left choroid Nov- Impression/Plan Related to Other vitreous opacities, bilateral Impression/Plan Related to Essen tial (primary) hypertension Impression/Plan Related to Retin al hemorrhage, right eye Impression/Plan Related to Retin al hemorrhage, right eye Impression/Plan Related to Benig n neoplasm of left choroid Impression/Plan Related to Other vitreous opacities, bilateral Impression/Plan Related to Hyper tensive retinopathy, bilateral Impression/Plan Related to Essen tial (primary) hypertension Impression/Plan - -M icroaneurysm likely secondary to his retinal telangiectasis OD-Patient had a reaction to Fluorescein Angiography testing in the past-Because there was no fluid on the OCT, we felt ill-advised to proceed with Fluorescein testing due to systemic risk-Patient instructed to follow an Amsler grid daily-Advised patient to return to their regular eye doctor in the next 4-6 months for ongoing observation Related to Retinal hemorrhage, right eye Impression/Plan - -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 on exam today-Discussed importance of periodic monitoring and reassessment to identify potential signs of malignant transformation 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 Patient was instructed to return to their regular eye doctor for ongoing, regular eye care. Assessments Type Assessment Date assessment Hypertensive retinopathy, bilate ral Nov- impression Hypertensive retinop athy, bilateral: H35.033. Bilateral. 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 OS. Condition: small, flat Oct- assessment Other vitreous opacities, bilate ral Oct- impression Other vitreous opaci ties, bilateral: H43.393. Bilateral. Conditions: mild, chronic Oct- assessment Essential (primary) hypertension Nov- impression Essential (primary) hypertension : I10. Conditions: established Nov- assessment Retinal hemorrhage, right eye Oc t- impression Retinal hemorrhage, right eye: H35.61. OD. Conditions: microaneurysm Nov- Patient Care Teams Name Effective Dates (start - stop) Status Members No Information
--- OUTSIDE RECORDS SUMMARY | 2024-08-18 15:03 | XMS_ITS ---
Author Name Auto Generated Organization OHIP Support Name Relationship Address Phone KAUSHIK MOLINA Next of Kin Unknown [phone] CHIDILOLLY Next of Kin Unknown [phone] MOLINA, KAUSHIK Next of Kin Unknown [phone] CHIDI LOLLY Next of Kin Unknown [phone] MATTHIEU, KAUSHIK Next of Kin Unknown [phone] [place] [address] + Sonny murillo Next of Kin Unknown [phone] Dillon Maureen Next of Kin [address] [place] [address] + chidi Sonny Next of Kin Unknown [phone] DILLON, KAUSHIK Next of Kin Unknown [phone] CHIDI LOLLY Next of Kin Unknown [phone] MATTHIEU, KAUSHIK Next of Kin Unknown [phone] MATTHIEU, KAUSHIK Next of Kin Unknown [phone] DILLON, KAUSHIK Next of Kin Unknown [phone] CHIDI LOLLY Next of Kin Unknown [phone] DILLON, KAUSHIK Next of Kin Unknown [phone] CHIDI, LOLLY Next of Kin Unknown [phone] DILLON, KAUSHIK Next of Kin Unknown [phone] CHIDI LOLLY Next of Kin Unknown [phone] Dillon Maureen Next of Kin [address] [place] [address] + MissSonny murillo Next of Kin Unknown [phone] Care Team Providers Care Field Education Director Name Role Phone RAGSDALEAGGIE Dominick Attending Unavailable RAGSDALEAGGIE MENDENHALL Referring Unavailable BALL, BLU E Primary Care Unavailable RAGSDALEAGGIE M Attending Unavailable BALL, BLU E Primary Care Unavailable RAGSDALE, MARCIAL M Referring Unavailable BALL, BLU E Primary Care Unavailable RAGSDALE, MARCIAL M Referring Unavailable BALL, BLU E Primary Care Unavailable Ragsdale, Marcial Admitting Unavailable Ragsdale, Marcial Attending Unavailable Ball, Blu Primary Care Unavailable Ball, Blu Primary Care Unavailable Cecil II, Yogesh M Admitting Unavailabl e Cecil II, Yogesh M Attending Unavailabl e Ragsdale, Marcial Admitting Unavailable Ragsdale, Aggie Attending Unavailable Ball, Blu Primary Care Unavailable GENE MILLER Attending Unavailable PAUL, GENE Cabral Attending Unavailable PAUL, GENE Cabral Attending Unavailable GENE MILLER Attending Unavailable PAUL, GENE Cabral Attending Unavailable LEAH RIVERA Attending Unavailable PROBLEMS DATE TYPE CONDITION / CODE ATTENDING STATUS [facility] 07/02/2024 Admitting Diagnosis Hyperlipidemia, unspecified / E78.5(ICD-10) [facility] 07/02/2024 Admitting Diagnosis 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 05/02/2024 Unknown Encounter for preprocedural laboratory examination / Z01.812(ICD-10) 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 / Z79.899(ICD-10) [facility] 03/26/2023 Admitting Diagnosis Patent foramen ovale (HHS-HCC) / Q21.12(ICD-10) [facility] 02/27/2023 Admitting Diagnosis Essential (primary) hypertension / I10(ICD-10) [facility] 02/27/2023 Admitting Diagnosis Abnormal findings on diagnostic imaging of heart and coronary circulation / R93.1(ICD-10) [facility] 09/12/2023 Unknown Presence of left artificial knee joint / Z96.652(ICD-10) [facility] 09/12/2023 Unknown Pain due to inte rnal orthopedic prosthetic devices, implants and grafts, initial encounter / T84.84XA(ICD-10) [facility] PROCEDURES No Procedure Records Found RESULTS COMPLETE BLOOD COUNT AUTO DIFF Collected: 05/02/2024 10:30 AM Status: F Source: [facility] TYPE CODE TESTS RESULT OUT OF RANGE REFERENCE UNITS LAB WBC White Blood Count 5.3 Normal 4.1-10.5 10*3/uL LAB UNWBC Uncorrected WBC 5.3 Normal 4.1-10.5 10*3/uL LAB RBC Red Blood Count 4.45 Normal 3.90-5.60 10*6/u L LAB HGB Hemoglobin 14.7 Normal 13.0-17.0 g/dL LAB HCT Hematocrit 41.6 Normal 38.8-50.0 % LAB MCV Mean Corpuscular Volume 93.7 Normal 83.5-101 fL LAB MCH Mean Corpuscular Hemoglobin 33.0 Normal 27.5-35.2 pg LAB MCHC Mean Corpuscular HGB Conc 35.3 Normal 32.5-35.6 g/dL LAB RDW Red Cell Distribution Width 12.8 Normal 12.0-14.8 % LAB PLT Platelet Count 139 Low 150-450 10*3/uL LAB MPV Mean Platelet Volume 8.4 Normal 6.6-10.1 fL LAB NE% Neutrophils % (Auto) 46.1 . % LAB LY% Lymphocytes % (Auto) 32.7 . % LAB MO% Monocytes % (Auto) 12.0 . % LAB EO% Eosinophils % (Auto) 7.9 . % LAB BA% Basophils % (Auto) 1.3 . % LAB NRBC% NRBC% 0.2 Normal 0-0.5 /100{WBC} LAB NE# Neutrophils # (Auto) 2.4 Normal 1.8-7.7 10*3/uL LAB LY# Lymphocytes # (Auto) 1.7 Normal 1.00-4.8 10*3/uL LAB MO# Monocytes # (Auto) 0.6 Normal 0.0-0.8 10*3/uL LAB EO# Eosinophils # (Auto) 0.4 Normal 0.0-0.45 10*3/uL LAB BA# Basophils # (Auto) 0.1 Normal 0.0-0.2 10*3/uL Result Comment: PERFORMED BY : [place] [address] PATHOLOGIST CENTRIFUGAL CASTING MACHINE OPERATOR BONNIE QUINTANILLA M.D. Performed By: #### ROBERT GRIFFITHS PID, CBC, PP, LYTES, BUN #### [address] ELECTROLYTES Collected: 5 10:30 AM Status: F Source: [facility] TYPE CODE TESTS RESULT OUT OF RANGE REFERENCE UNITS LAB NA Sodium 137 Normal 136-145 mmol/L LAB K Potassium 4.5 Normal 3.5-5.1 mmol/L LAB CL Chloride 106 Normal 98-107 mmol/L LAB CO2 Carbon Dioxide 29.5 Normal 21.0-31.0 mmol/L LAB GAP Anion Gap 6.0 Normal 6.0-15.0 meq/L Performed By: #### CREAT, LI PID, CBC, PP, LYTES, BUN #### [address] BLOOD UREA NITROGEN Collected: 05/03/19 25 10:30 AM Status: F Source: [facility] TYPE CODE TESTS RESULT OUT OF RANGE REFERENCE UNITS LAB BUN Blood Urea Nitrogen 24 Normal 7-25 mg/dL Performed By: #### CREAT, LI PID, CBC, PP, LYTES, BUN #### [facility] [address] CREATININE Collected: 10:30 AM Status: F Source: [facility] TYPE CODE TESTS RESULT OUT OF RANGE REFERENCE UNITS LAB CREATT Creatinine 1.04 Normal 0.70-1.30 mg/dL LAB GFReNR Estimated GFR >60.0 mL/Min Performed By: #### CREAT, LI PID, CBC, PP, LYTES, BUN #### [facility] [address] [place] [id number] [facility] LIPID PANEL Collected: 05/02/2024 10:30 AM Status: F Source: [facility] TYPE CODE TESTS RESULT OUT OF RANGE REFERENCE UNITS LAB CHOL Cholesterol 190 Normal 140-200 mg/dL Result Comment: Chol less th an 200 mg/dl low risk Chol 201-239 mg/dl borderline risk Chol 240 mg/dl and greater high risk LAB HDL HDL Cholesterol 53 Normal 23-92 mg/dL Result Comment: HDL CHOL ATP -III CLASSIFICATION Cardiovascular Risk HDL > or equal to 60 mg/dL LOW HDL < 40 mg/dL HIGH LAB TRIG W REF Triglyceride w/Reflex 130 Normal 0-149 mg/dL Result Comment: TRIG ATP III CLASSIFICATION TRIG less than 150 mg/dL Normal TRIG 150-199 mg/dL Borderline high TRIG 200-500 mg/dL High TRIG greater than 500 mg/dL Very high Standard traceable to the Center for Disease Conrtrol and Prevention (CDC) test method. LAB LDLC LDL Cholesterol,Calc ulated 111 High 0-100 mg/dL Result Comment: LDL ATP III CLASSIFICATION LDL less than 100 mg/dL Optimal LDL 100-129 mg/dL Near or above optimal LDL 130-159 mg/dL Borderline high LDL 160-189 mg/dL High LDL greater than 189 mg/dL Very high LAB VLDL VLDL CHOLESTEROL 26 mg/dL LAB CHLHDL Chol/HDL Ratio 3.6 <5.0 Result Comment: PERFORMED BY : [place] [address] PATHOLOGIST CENTRIFUGAL CASTING MACHINE OPERATOR BONNIE QUINTANILLA M.D. Performed By: #### CREAT, LI PID, CBC, PP, LYTES, BUN #### [facility] [address] [place], [place] [id number] [facility] COAGULATION PROFILE Collected: 05/02/2024 10:30 AM S tatus: F Source: [facility] TYPE CODE TESTS RESULT OUT OF RANGE REFERENCE UNITS LAB R PT Prothrombin Time 12.6 Normal 9.0-12.9 s Result Comment: A hematocrit value greater than 55% may lead to inaccurate results in coagulation testing. Patients having hematocrit values >55% require a special collection tube for coagulation studies. Please contact the laboratory at [phone] for redraw instructions. LAB INR INR 1.1 Result Comment: INR Therapeu tic Range A) Pre- and Peroperative OAT started two weeks before surgery. NOT HIP SURGERY: 1.5 - 2.5 HIP SURGERY: 2 - 3 B) Primary and secondary prevention of venous THROMBOSIS: 2 - 3 C) Active venous thrombosis, pulmonary embolism and prevention of recurrent venous thrombosis: 2 - 3 D) Prevention of arterial thromboembolism including patients with mechanical heart valves: 3 - 4.5 LAB PTT Partial Thromboplastin Time 29.9 Normal 25.1-36.5 s Result Comment: A hematocrit value greater than 55% may lead to inaccurate results in coagulation testing. Patients having hematocrit values >55% require a special collection tube for coagulation studies. Please contact the laboratory at [phone] for redraw instructions. PERFORMED BY: [place] [address] PATHOLOGIST CENTRIFUGAL CASTING MACHINE OPERATOR BONNIE QUINTANILLA M.D. Performed By: #### ROBERT GRIFFITHS PID, CBC, PP, LYTES, BUN #### [facility] [address] [place], [place] [id number] [facility] ECG 12 LEAD ECG Observed: 05/02/2024 10:15 AM Status: COMPLETED Source: [facility] [place] [address] Electrocardiograph Report Signed Patient: Yanelis Noriega MR#: [id number] : 1945 Acct:[id number] Age/Sex: 79 / M ADM Date: 05/02/24 Loc: PS Room: Type: [facility] Attending Dr: Aggie Ragsdale MD Ordering Provider: Aggie Ragsdale MD, [facility] Date of Service: 05/02/2409/19/1006 ECG/ECG 12 lead ECG: preop Copies to: Test Reason : Blood Pressure : */* mmHG Vent. Rate : 61 BPM Atrial Rate : 61 BPM P-R Int : 160 ms QRS Dur : 78 ms QT Int : 412 ms P-R-T Axes : 47 -4 26 degrees QTcB Int : 414 ms Normal sinus rhythm Normal ECG Confirmed by Brianna Martinez ([id number]) on 05/02/2024 9:12:37 PM Referred By: Electronically Signed By: Brianna Martinez Transcribed By: MUS Signed By Brianna Martinez MD [id number] CT CARDIAC SCORING WO IV CONTRAST Observed: 04/29/2024 6:49 PM Status: C Source: [facility] Interpreted By: Cipriano Dior, ADDENDUM: Technical: The following is to serve as an over-read for an unenhanced cardiac CT, to evaluate the extravascular structures. Contiguous unenhanced CT sections are performed from level the neftaly to the upper abdomen. Findings: The visualized portions of both lungs are clear. There is no sign of pathologic lymph node enlargement. There is no pericardial or pleural effusion. Images through the upper abdomen demonstrate a incompletely visualized cyst in the upper pole the right kidney measuring at least 5 cm in diameter. The visualized osseous structures are intact. Impression: Incompletely visualized cyst in the right kidney measuring least 5 cm in diameter. The extravascular structures are otherwise unremarkable. Signed by: Cipriano Dior 04/29/2024 8:25 PM -------- ORIGINAL REPORT -------- Dictation workstation: [id number] Interpreted By: Cipriano Gutierrez, STUDY: CT CARDIAC SCORING WO IV CONTRAST; 04/29/2024 7:31 pm INDICATION: Signs/Symptoms:dyspnea. COMPARISON: None. ACCESSION NUMBER(S): [id number] ORDERING CLINICIAN: AGGIE RAGSDALE TECHNIQUE: Using prospective ECG gating, CT scan of the coronary arteries was performed without intravenous contrast. Coronary calcium scoring was performed according to the method of Agatston. CT Dose-Length Product (DLP): 73.6 mGy*cm CT Dose Reduction Employed: Yes, prospective gating, iterative reconstruction. FINDINGS: The score and distribution of calcium in the coronary arteries is as follows: LM 361 LAD 1367 LCx 304 RCA 274 Total 2306 The visualized ascending thoracic aorta measures 3.7 cm in diameter. The heart is normal in size. No pericardial effusion is present. Aortic valve calcification. The main pulmonary artery, right and left pulmonary artery are normal in size. IMPRESSION: 1. Coronary artery calcium score of 2306*. 2. MONROE 88th percentile for age, gender, and race in asymptomatic patients. *Coronary Artery Agatston score Score risk Very low 1-99 Mildly increased 100-299 Moderately increased >300 Moderate to severely increased >800 Erma et al. JCCT 2016 (http://dx.doi.org/10.1016/j.jcct.2016.11.003) [place]E Percentile In general, greater than 75th percentile for age, gender, and race is considered to be a higher relative risk and higher lifetime risk condition. Greater than 75th percentile=moderate to severely increased relative risk irrespective of the score. Advise using MONROE 10 year CHD risk calculator below for better discrimination of risk. MONROE 10-Year CHD Risk with Coronary Artery Calcification can be calcuate using link below https://www.monroe-nhlbi.org/MESACHDRisk/MesaRiskScore/RiskScore.aspx Yamila barclay al. JACC 2014 (http://dx.doi.org/10.1016/j.j acc.2015.08.035) Reading Supervisor Boat Outfitting: Dr. Cipriano Gutierrez, Date: 04/29/2024 8:19 pm Signed by: Cipriano Gutierrez 04/29/2024 8:20 PM Dictation workstation: [id number] STRESS TEST ONLY Observed: 04/08/2024 10:48 AM Status: F Source: [address], Suite [facility], [place] [address] Exercise Stress Test Patient Name: YANELIS NORIEGA Ordering Provider: [id number] RAGSDALE Study Date: 04/08/2024 Reading Physician: [id number] Ragsdale MD, [facility] MRN/PID: [id number] Supervising Physician: [id number] Aggie Ragsdale MD, [facility] Fellow: Date of /Age: 11 1945 Fellow: years Gender: M Nurse: Sveta Trinh RN Admission Status: Santa'S Helper: ANA Height: 170.18 cm Technologist: Weight: 82.10 kg Additional Staff: BSA: 1.94 m2 BMI: 28.35 kg/m2 Patient Location: Study Type: STRESS TEST ONLY Diagnosis/ICD: Shortness of breath-R06.02 Indication: Dyspnea CPT Codes: Stress Test Interpretation-36102; Stress Test Supervision-14204 Falls Risk: Low: Patient has low risk for sustaining a fall; environmental safety interventions in place. Study Details: Correct procedure and correct patient verified verbally. Patient Performance: The patient exercised to stage II on a Armando protocol for 5 minutes and 41 seconds, achieving 7.00 METS. The peak heart rate achieved was 120 bpm, which was 85 % of the age predicted target heart rate of 141 bpm. The resting blood pressure was 128/86 mmHg with a heart rate of 63 bpm. The standing blood pressure was 122/82 mmHg with a heart rate of 62 bpm. The patient's functional capacity was above average. The patient developed dyspnea during the stress exam. The symptoms resolved with rest. The blood pressure response was normal. The test was terminated due to: dyspnea. Double Product (HR x BP): 202. Baseline ECG: Resting ECG showed normal sinus rhythm with occasional premature ventricular contractions. Stress Stage Data: + +---+------+-------+ HR Sys BP Reeves BP + +---+------+-------+ Baseline Resting 63 128 86 + +---+------+-------+ Baseline Standing 62 122 82 + +---+------+-------+ Stage I 93 144 76 + +---+------+-------+ Stage II 117 168 74 + +---+------+-------+ Recovery ECG: The heart rate recovery was normal. + +---+------+-------+ HR Sys BP Reeves BP + +---+------+-------+ Recovery I 117 172 72 + +---+------+-------+ Recovery II 107 168 74 + +---+------+-------+ Recovery III 75 128 78 + +---+------+-------+ Recovery IV 69 126 82 + +---+------+-------+ Summary: 1. 1_normal graded exercise tolerance test after completing 5 minutes and 41 seconds on a Armando protocol and achieving a maximal heart rate 127 bpm which represented 90% of predicted maximal heart rate and workload of 7 METS 2_no chest pain, cardiac arrhythmias or ischemic ST segment abnormalities induced by exercise 3_fair exercise tolerance for age with normal heart rate recovery and achievement of Ordonez treadmill score of 6+ which is favorable for this patient's age. 2. Adequate level of stress achieved. [id number] Aggie Ragsdale MD, [facility] Electronically signed on 04/09/2024 at 7:50:39 AM Final XR KNEE LT 3V - NOT FOR ER USE Observed: 09/12/2023 3:38 PM Status: COMPLETED Source: [facility] [address] [place] [address] XRay Report Signed Patient: Yanelis Noriega MR#: [id number] : 1945 Acct:[id number] Age/Sex: 78 / M ADM Date: 09/12/23 Loc: [facility] Room: Type: [facility] CLI Attending Dr: Yogesh Jacob II, MD Copies [...] arthroplasty. Small joint effusion. Impression dictated by: Lolly Alvarado M.D.09/12/2023 3:39 PM Dictation Location: [place] [address] Transcribed By: [facility] 09/12/23 1539 Dictated By: Lolly Alvarado DO 09/12/23 1538 Signed By: <Electronically signed by Lolly Alvarado DO in OV> 09/12/23 1539 XR PELVIS 1-2V Observed: 09/12/2023 3:37 PM Status: COMPLETED Source: [facility] [address] [place] [address] XRay Report Signed Patient: Yanelis Noriega MR#: [id number] : 1945 Acct:[id number] Age/Sex: 78 / M ADM Date: 09/12/23 Loc: [facility] Room: Type: [facility] CLI Attending Dr: Yogesh Jacob II, MD Copies [...] pelvis 1-2V IMPRESSION:Mild degeneration Impression dictated by: Lolly Alvarado M.D.09/12/2023 3:38 PM Dictation Location: [facility]08 Transcribed By: PWS 09/12/23 1538 Dictated By: Lolly Alvarado DO 09/12/23 1537 Signed By: <Electronically signed by Lolly Alvarado DO in OV> 09/12/23 1538 C-REACTIVE PROTEIN Collected: 11:23 AM Status: F Source: [facility] TYPE CODE TESTS RESULT OUT OF RANGE REFERENCE UNITS LAB CRP C-Reactive Protein < 0.5 Normal 0.0-0.5 Result Comment: PERFORMED BY : [place] [address] PATHOLOGIST CENTRIFUGAL CASTING MACHINE OPERATOR DOLORES RICHARDS M.D. Performed By: #### CBC, CRP, DDIMER, ESR #### [address] COMPLETE BLOOD COUNT AUTO DIFF Collected: 09/12/2023 11:23 AM Status: F Source: [facility] TYPE CODE TESTS RESULT OUT OF RANGE REFERENCE UNITS LAB WBC White Blood Count 5.3 Normal 4.1-10.5 10*3/uL LAB UNWBC Uncorrected WBC 5.3 Normal 4.1-10.5 10*3/uL LAB RBC Red Blood Count 4.35 Normal 3.90-5.60 LAB HGB Hemoglobin 14.3 Normal 13.0-17.0 g/dL LAB HCT Hematocrit 40.7 Normal 38.8-50.0 % LAB MCV Mean Corpuscular Volume 93.7 Normal 83.5-101 fL LAB MCH Mean Corpuscular Hemoglobin 32.9 Normal 27.5-35.2 pg LAB MCHC Mean Corpuscular HGB Conc 35.1 Normal 32.5-35.6 g/dL LAB RDW Red Cell Distribution Width 12.8 Normal 12.0-14.8 % LAB PLT Platelet Count 127 Low 150-450 10*3/uL LAB MPV Mean Platelet Volume 9.0 Normal 6.6-10.1 fL LAB NE% Neutrophils % (Auto) 49.4 . % LAB LY% Lymphocytes % (Auto) 31.8 . % LAB MO% Monocytes % (Auto) 12.2 . % LAB EO% Eosinophils % (Auto) 5.8 . % LAB BA% Basophils % (Auto) 0.8 . % LAB NRBC% NRBC% 0.1 Normal 0-0.5 /100{WBC} LAB NE# Neutrophils # (Auto) 2.6 Normal 1.8-7.7 10*3/uL LAB LY# Lymphocytes # (Auto) 1.7 Normal 1.00-4.8 10*3/uL LAB MO# Monocytes # (Auto) 0.7 Normal 0.0-0.8 10*3/uL LAB EO# Eosinophils # (Auto) 0.3 Normal 0.0-0.45 10*3/uL LAB BA# Basophils # (Auto) 0.0 Normal 0.0-0.2 10*3/uL Performed By: #### CBC, CRP, DDIMER, ESR #### [place] [id number] [facility] ERYTHROCYTE SEDIMENTATION RATE Collected: 09/12/2023 11:23 AM Status: F Source: [facility] TYPE CODE TESTS RESULT OUT OF RANGE REFERENCE UNITS LAB ESR Erythrocyte Sedimentation Rate 10 Normal 0-19 Result Comment: PERFORMED BY : [place] [address] PATHOLOGIST CENTRIFUGAL CASTING MACHINE OPERATOR DOLORES RICHARDS M.D. Performed By: #### CBC, CRP, DDIMER, ESR #### [place] [id number] [facility] D-DIMER HIGH SENSITIVITY Collected: 11:23 AM Status: F Source: [facility] TYPE CODE TESTS RESULT OUT OF RANGE REFERENCE UNITS LAB DDIMER D-Dimer High Sensitivity 233 Normal 0-243 ng/mL Result Comment: The referenc e range for D-dimer is <243 ng/mL D-dimer [...] coagulation studies. Please contact the laboratory at [phone] for redraw instructions. PERFORMED BY: [place] [address] PATHOLOGIST CENTRIFUGAL CASTING MACHINE OPERATOR DOLORES RICHARDS M.D. Performed By: #### CBC, CRP, DDIMER, ESR #### [place] [id number] [facility] ALLERGIES DATE TYPE / CODE NAME / CODE REACTION SEVERITY SOURCE 05/02/2024 Drug Allergy/416 588724(SNOM ED CT) Iodinated Contrast Media/[id number](RXNORM ) Rash, itching Unknown [facility] 05/02/2024 Drug Allergy/416 873527(SNOM ED CT) Sulfa (Sulfonamide Antibiotics)/[id number] (RXNORM) Rash Unknown [facility] 05/02/2024 Drug Allergy/416 867144(SNOM ED CT) iodine/Y653710029(RXNOR M) Unknown Reaction Unknown [facility] 05/02/2024 Drug Allergy/416 755232(SNOM ED CT) trimethoprim/[id number] (RXNORM) Rash Unknown [facility] 05/02/2024 Drug Allergy/416 980687(SNOM ED CT) simvastatin/[id number]( RXNORM) Pain Unknown [facility] 09/12/2023 Drug Allergy/416 427792(SNOM ED CT) sulfamethoxazole/B54447 2827(RXNORM) Unknown Reaction Unknown [facility] 02/27/2023 DRUG INGREDI/419 700326(SNOM ED CT) SULFAMETHOXAZOLE Hives [facility] 07/15/2020 DRUG/869739 003(SNOMED CT) IODIDES Hives~Itching [facility] 06/11/2015 DRUG/243443 003(SNOMED CT) SULFAMETHOXAZOLE-TRIMET HOPRIM Hives~Rash Low [facility] 03/15/2010 Drug Class/65025 1003(SNOMED CT) IODINATED CONTRAST MEDIA Hives [facility] Ambulatory ENCOUNTERS ADMIT/DISCHARGE ACCOUNT NUMBER ADMITTING ENCOUNTER CLASS LOCATION SOURCE 08/18/2024/08/19/19 25 [id number] Ambulatory Building:NOM S SWSDERM [facility] EPIC 07/17/2024/07/18/19 25 [id number] Ambulatory Building:NOM S CI POD [facility] EPIC 07/02/2024/07/03/19 25 [id number] Ambulatory Building:DOT [id number] [facility] 05/05/2024/05/06/19 25 [id number] [facility] 05/02/2024/05/03/19 25 [id number] [facility] 05/01/2024/05/02/19 25 [id number] Ambulatory Building:NOM S CI POD [facility] EPIC 04/29/2024/04/30/19 25 [id number] Ambulatory Building:[facility] 04/08/2024/04/08/19 25 [id number] Ambulatory Building:[address] 03/26/2024/03/26/19 25 [id number] Ambulatory Building:DOT [id number] [facility] 02/21/2024/02/21/20 24 [id number] Ambulatory Building:NOM S CI POD [facility] EPIC 12/13/2023/12/13/19 24 [id number] Ambulatory Building:NOM S CI POD [facility] EPIC 10/04/2023/10/04/19 24 [id number] Ambulatory Building:NOM S CI POD [facility] EPIC 09/12/2023/09/12/19 24 [id number] [facility]ogesh Jacob II [facility] PAYERS ENCOUNTER GUARANTOR PAYER SUBSCRIBER SOURCE 08/18/2024 YANELIS ENCARNACION: [id number] [place] [address]Hay: (HP) Primary Insurance:MEDICAREPo licy Number: [id number] Date:[id number] Name:Medicare YANELIS ENCARNACION: [id number] [place], [facility] [facility] EPIC 08/18/2024 Secondary Insurance:AARPPolicy Number: [id number] Date:2023-02-26 YANELIS ALDRICHB: [id number] [place], [facility] [facility] EPIC 07/17/2024 YANELIS ALDRICHB: [id number] [place], [place] [phone]: () Primary Insurance:MEDICAREPo licy Number: [id number] Date:[id number] Name:Medicare YANELIS ALDRICHB: [id number] [place], [facility] [facility] EPIC 07/17/2024 Secondary Insurance:AARPPolicy Number: [id number] Date:2023-02-26 YANELIS ALDRICHB: [id number] [place], [facility] [facility] EPIC 07/02/2024 YANELIS ALDRICHB: [id number] [place], [place] [address]Tix: (HP) Primary Insurance:MEDICAREPo licy Number: [id number] Date:2009-12-27 YANELIS ALDRICHB: [id number] [place], [place] [address]Hxt: (HP) [facility] 07/02/2024 Secondary Insurance:AARPPolicy Number: [id number] Date:2022-02-26 YANELIS ENCARNACION: [id number] [place], [place] [address]Wfe: () [facility] 05/05/2024 [place] [address]Gik: () Primary Insurance:MedicarePo licy Number: [id number] Date:2024-05-01 Yanleis Encarnacion: [id number] [place] [address]Mjy: () [facility] 05/05/2024 Secondary Insurance:[facility] Health ClaimsPolicy Number: [id number] Date:2024-05-01 Yanelis Encarnacion: [id number] [place] [address]Ogu: () [facility] 05/05/2024 Tertiary Insurance:Self PayPolicy Number: Effective Date:2024-05-01 NOT GIVENUNK [facility] 05/02/2024 [place] [address]Jda: () Primary Insurance:MedicarePo licy Number: [id number] Date:2024-05-01 Yanelis Encarnacion: [id number] [place] [address]Iub: () [facility] 05/02/2024 Secondary Insurance:[facility] Health ClaimsPolicy Number: [id number] Date:2024-05-01 Yanelis Encarnacion: [id number] [place] [address]Jep: () [facility] 05/02/2024 Tertiary Insurance:Self PayPolicy Number: Effective Date:2024-05-01 [facility] YANELIS ENCARNACION: [id number] [place] [address]Fqu: () Primary Insurance:MEDICAREPo licy Number: [id number] Date:3705-48-27Ddjb Name:Medicare YANELIS ENCARNACION: [id number] [place] [address] [facility] EPIC 05/01/2024 Secondary Insurance:AARPPolicy Number: [id number] Date:2023-02-26 YANELIS ENCARNACION: [id number] [place] [address] [facility] EPIC 04/29/2024 YANELIS ENCARNACION: [id number] [place], [place] [address]Uvp: () Primary Insurance:MEDICAREPo licy Number: [id number] Date:2009-12-27 YANELIS ENCARNACION: [id number] [place] [address]Ywb: () [facility] 04/29/2024 Secondary Insurance:AARPPolicy Number: [id number] Date:2022-02-26 YANELIS ENCARNACION: [id number] [place], [place] [address]Gwj: () [facility] 04/08/2024 YANELIS ALDRICHB: [id number] [place], [place] [address]Ato: () Primary Insurance:MEDICAREPo licy Number: [id number] Date:2009-12-27 YANELIS ALDRICHB: [id number] [place], [place] [address]Uqv: () [facility] 04/08/2024 Secondary Insurance:AARPPolicy Number: [id number] Date:2022-02-26 YANELIS ENCARNACION: [id number] [place] [address]Hln: () [facility] 03/26/2024 YANELIS ALDRICHB: [id number] [place], [place] [address]Gjs: (HP) Primary Insurance:MEDICAREPo licy Number: [id number] Date:2009-12-27 YANELIS ENCARNACION: [id number] [place], [place] [address]Awi: () [facility] 03/26/2024 Secondary Insurance:AARPPolicy Number: [id number] Date:2022-02-26 YANELIS ENCARNACION: [id number] [place], [place] [address]Uem: () [facility] 02/21/2024 YANELIS ENCARNACION: [id number] [place] [address]Syb: () Primary Insurance:MEDICAREPo licy Number: [id number] Date:0852-99-58Djlx Name:Medicare YANELIS ENCARNACION: [id number] [place] [address] [facility] 02/21/2024 Secondary Insurance:AARPPolicy Number: [id number] Date:2023-02-26 YANELIS ENCARNACION: [id number] [place] [address] [facility] EPIC 12/13/2023 YANELIS ALDRICHB: [id number] [place] [address]Ulh: () Primary Insurance:MEDICAREPo licy Number: [id number] Date:0860-06-33Iduw Name:Medicare YANELIS ALDRICHB: [id number] [place], [facility] [facility] EPIC 12/13/2023 Secondary Insurance:AARPPolicy Number: [id number] Date:2023-02-26 YANELIS ALDRICHB: [id number] [place], [place] [phone] [facility] EPIC 10/04/2023 YANELIS ALDRICHB: [id number] [place], [place] [phone]: () Primary Insurance:MEDICAREPo licy Number: [id number] Date:6482-15-57Ovme Name:Medicare YANELIS ALDRICHB: [id number] [place], [place] [phone] [facility] EPIC 10/04/2023 Secondary Insurance:AARPPolicy Number: [id number] Date:2023-02-26 YANELIS ALDRICHB: [id number] [place], [place] [phone] [facility] EPIC 09/12/2023 Yanelis Noriega11917 [place], [place] [phone]: () Primary Insurance:MedicarePo licy Number: [id number] Date:2023-09-12 Yanelis AldrichB: [id number] [place], [facility]Lso: () [facility] 09/12/2023 Secondary Insurance:[facility] ClaimsPolicy Number: [id number] Date:2023-09-12 Yanelis AldrichB: [id number] [place] [address]Sek: () [facility] 09/12/2023 Tertiary Insurance:Self PayPolicy Number: Effective Date:2023-09-12 NOT GIVENUNK [facility]
--- OUTSIDE RECORDS SUMMARY | 2024-08-18 15:20 | XMS_ITS | Encounter Summary ---
Author Organization [facility] Address [address] [facility] [place] [address] Care Team Providers Care Hoop Expander Name Role Phone Blu Humphrey Primary Care Provider [phone] Encounter Details Date Type Department Care Team (Late st Contact Info) Description 08/18/2024 3:20 PM EDT Office Visit [facility] [address] [facility] [address] [place] [address] Jennifer Sanford APRN-CNP [address] [facility] [address] [place] [address] Neoplasm of unspecified behavior of bone, soft tissue, and skin Social History Tobacco Use Types Packs/Day Years Used Date Smoking Tobacco: Former Cigarettes Smokeless Tobacco: Never Alcohol Use Standard Drinks/Week Comments Yes 0 (1 standard drink = 0.6 oz pure alcohol) caffeine intake: more than 4 cups per day AUDIT-C Answer Date Recorded Q1: How often do you have a drink containing alcohol? 4 or more times a week 03/01/2023 Q2: How many drinks containi ng alcohol do you have on a typical day when you are drinking? 3 or 4 Q3: How often do you have si x or more drinks on one occasion? Never 03/01/2023 Sex and Gender Information Value Date Recorded Sex Assigned at Not on file Legal Sex Male 8:21 PM EDT Gender Identity Not on file Sexual Orientation Not on file documented as of this encounter Progress Notes * CYNTHIA Kaufman - 08/18/2024 3:20 PM EDT Images from the original note were not included. Lesions: Location: right ear Duration: months Quality: bleeding Modifying factors: aggravated by laying on right side Associated symptoms: non-healing, tender Treatments: none New patient, referred by Blu Humphrey DO All pertinent medical history, medications, and allergies were reviewed. General Exam: alert, oriented to person, place, and time, normal affect, well appearing Accompanied by significant other A focused exam completed based on patient reported problems, see below: Skin Exam 1. NEOPLASM OF UNSPECIFIED BEHAVIOR OF BONE, SOFT TISSUE, AND SKIN Right [place] papule Lesion biopsy Type of biopsy: tangential Informed consent: discussed and consent obtained Informed consent comment: The risks and benefits of the biopsy were discussed. Risks include but are not limited to bleeding, infection, scarring, pain, and nerve damage. An opportunity to ask questions prior to the procedure was permitted and all questions were answered. Patient was prepped and draped in usual sterile fashion: area cleansed with alcohol. Anesthesia: the lesion was anesthetized in a standard fashion Anesthetic: 1% lidocaine w/ epinephrine 1-100,000 buffered w/ 8.4% NaHCO3 Instrument used: DermaBlade Hemostasis achieved with: electrodesiccation Outcome: patient tolerated procedure well Outcome comment: The specimen was placed in a prelabeled formalin container to be sent for pathology Post-procedure details: sterile dressing applied and wound care instructions given Post-procedure details comment: Emphasized need to contact clinic for any signs of infection, uncontrollable bleeding, or complications. Dressing type: bandage Additional details: Photo taken Amount of lidocaine used: 0.4 cc Specimen A - Dermatopathology exam Differential Diagnosis: BCC vs other Check Margins: No Size of lesion: 1.1 x 1.0 cm Next Visit: pending biopsy results, 6 month skin check documented in this encounter Plan of Treatment Upcoming Encounters Date Type Department Care Team ([facility] st Contact Info) Description 09/25/2024 10:50 AM EDT Procedure Visit [facility] [address] [facility] [address] [place] [id number] Ashutosh Ac DPM [address] [facility] [address] [place] [address] 10/28/2024 8:30 AM EDT Office Visit [facility] [address] [place] [address] Chey Diaz MD [address] [place] [address] 02/12/2025 10:55 AM EST Office Visit [facility] [address] [place] [address] Jennifer Sanford, SHI-MACY [address] [place], [place] [id number] documented as of this encounter Procedures Procedure Name Priority Date/Time Associated Diagnosis Comments SKIN / NAIL BIOPSY Routine 08/18/2024 3: 33 PM EDT Neoplasm of unspecified behavior of bone, soft tissue, and skin DERMATOPATHOLOGY EXAM Routine 08/18/2024 12:00 AM EDT Neoplasm of unspecified behavior of bone, soft tissue, and skin documented in this encounter Results * Lesion biopsy (08/18/2024 3:33 PM EDT) Narrative Mony Solis MA - 08/18/2024 3:33 PM EDT Type of biopsy: tangential Informed consent: discussed and consent obtained Informed consent comment: The risks and benefits of the biopsy were discussed. Risks include but are not limited to bleeding, infection, scarring, pain, and nerve damage. An opportunity to ask questions prior to the procedure was permitted and all questions were answered. Patient was prepped and draped in usual sterile fashion: area cleansed with alcohol. Anesthesia: the lesion was anesthetized in a standard fashion Anesthetic: 1% lidocaine w/ epinephrine 1-100,000 buffered w/ 8.4% NaHCO3 Instrument used: DermaBlade Hemostasis achieved with: electrodesiccation Outcome: patient tolerated procedure well Outcome comment: The specimen was placed in a prelabeled formalin container to be sent for pathology Post-procedure details: sterile dressing applied and wound care instructions given Post-procedure details comment: Emphasized need to contact clinic for any signs of infection, uncontrollable bleeding, or complications. Dressing type: bandage Additional details: Photo taken Amount of lidocaine used: 0.4 cc Jennifer Cabral Claribel [facility] PROCEDURE ORDERAB LES Final Result * Dermatopathology exam (08/18/2024 12:00 AM EDT) SPECIMEN TYPE ------ SPECIMEN: RIGHT MID HELIX ------ [facility] ICD10 Code C44.211 [facility] PROTOCOL F - FLAT [facility] Final Diagnosis NODULAR BASAL CELL CARCINOMA. [facility] Gross Text [facility] Microscopic Description Microscopic examination performed. [facility] CPT 22471*1 [facility] Skin Topography unknown / Unknown 08/18/2024 3:33 PM EDT Comment:Differential Diagnos is: BCC vs other Check Margins: No Size of lesion: 1.1 x 1.0 cm Jennifer Sanford [facility] ORDERABL ES Final Result [facility] documented in this encounter Visit Diagnoses Diagnosis Neoplasm of unspecified behavior of bone, soft tissue, and skin documented in this encounter Care Teams Hoop Expander Relationship Specialty Start Date End Date Blu Humphrey DO [address] [place] [address] PCP - General Internal Medicine 03/01/23 documented as of this encounter
--- OUTSIDE RECORDS SUMMARY | 2024-09-01 20:55 | XMS_ITS | Encounter Summary ---
Author Organization [facility] Address [address] [place] [address] Care Team Providers Care Run Boat Operator Name Role Phone Blu Humphrey Primary Care Provider [phone] Encounter Details Date Type Department Care Team (Late Contact Info) Description 08/18/2024 Bamboo flowsheet [facility] [address] [facility] [address] [place] [address] Jennifer Sanford, ENGLISH AND READING INSTRUCTOR-GLASS CLEANER [address] [facility] [address] [place] [address] Social History Tobacco Use Types Packs/Day Years [...] on file documented as of this encounter Plan of Treatment Upcoming Encounters Date Type Department Care Team (Late st Contact Info) Description 09/25/2024 10:50 AM EDT Procedure Visit [facility] [address] [place] [address] Ashutosh Ac DPM [address] [facility] 5 [place] [address] 10/28/2024 8:30 AM EDT Office Visit [facility] [address] [place] [address] Chey Diaz MD [address] [place] [address] 02/12/2025 10:55 AM EST Office Visit [facility] [address] [place] [address] Jennifer Sanford APRN-GLASS CLEANER [address] [place] [address] documented as of this encounter Visit Diagnoses Not on filedocumented in this encounter Care Teams Run Boat Operator Relationship Specialty Start Date End Date Blu Humphrey DO [address] [facility] [place] [address] PCP - General Internal Medicine 03/01/23 documented as of this encounter
--- OUTSIDE RECORDS SUMMARY | 2024-09-01 20:55 | XMS_ITS | Encounter Summary ---
Author Organization [facility] Address [address] [place] [address] Care Team Providers Care Radial Saw Operator Name Role Phone Blu Humphrey DO Primary Care Provider [phone] Encounter Details Date Type Department Care Team (Late st Contact Info) Description 08/12/2020 FollowUp Telephone Encounter [facility] [address] [place] [address] Jacqueline Byers RN Social History Tobacco Use Types Packs/Day Years Used Date Smoking Tobacco: Former Cigarettes Q uit: 1966 Smokeless Tobacco: Never Alcohol Use Standard Drinks/Week Comments Yes 21 (1 standard drink = 0.6 oz pu re alcohol) Sex and Gender Information Value Date Recorded Sex Assigned at Not on file Legal Sex Male 1:35 PM EDT Gender Identity Not on file Sexual Orientation Not on file COVID-19 Exposure Response Date Recorded In the last month, have you been in contact with someone who was confirmed or suspected to have Coronavirus / COVID-19? No / Unsure 08/09/2020 8:06 AM EDT documented as of this encounter Plan of Treatment Not on file documented as of this encounter Visit Diagnoses Not on filedocumented in this encounter Care Teams Radial Saw Operator Relationship Specialty Start Date End Date Blu Humphrey DO [address] [place] [address] PCP - General Internal Medicine 07/15/20 documented as of this encounter
--- OUTSIDE RECORDS SUMMARY | 2024-09-01 20:55 | XMS_ITS | Encounter Summary ---
Author Organization [facility] Address [address] [place] [address] Care Team Providers Care Travel Accommodations Rater Name Role Phone Blu Humphrey DO Primary Care Provider [phone] Encounter Details Date Type Department Care Team (Late st Contact Info) Description 08/24/2020 FollowUp Telephone Encounter [facility] [address] [place] [address] Jacqueline Byers, RN Social History Tobacco Use Types Packs/Day [...] have Coronavirus / COVID-19? No / Unsure 08/21/2020 11:12 AM EDT documented as of this encounter Progress Notes * Jacqueline Byers, ILYA - 08/24/2020 10:36 AM EDT SPOKE WITH PT CONCERNING PAIN MEDICATION REFILL. 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 ED to be admitted for hemoarthorsis. Pt denied any bleeding. Was on coumadin and lovenox at home post op 08/09/[address]KA with Dr[address] Ferraro to bridge until therapeutic at2-3 INR. 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 Was discharged from [facility] on 2.5mf eliquis BIDto prevent DVT and will follow up with PCP today at 1400 to discuss the need for anticoagulant medication moving forward after the 2 weeks post-op prophylaxis treatment. Dr. Ferraro has refilled pts percocet at discharge from hospital 08/21/2020. documented in this encounter Plan of Treatment Not on file documented as of this encounter Visit Diagnoses Not on filedocumented in this encounter Care Teams Travel Accommodations Rater Relationship Specialty Start Date End Date Blu Humphrey DO [address] [place] [address] PCP - General Internal Medicine 07/15/20 documented as of this encounter
--- OUTSIDE RECORDS SUMMARY | 2024-09-01 20:55 | XMS_ITS | Clinical Summary ---
Author Organization [facility] Address [address] [facility] [place] [address] Care Team Providers Care Noodle Maker Name Role Phone Blu Humphrey Primary Care Provider [phone] Allergies Active Allergy Reactions Criticality Noted Date Comments Iodinated Contrast Media Hives,Itching High 03/15/19 11 Iodine Unknown 03/01/2023 Sulfa Antibiotics Hives,Unknown 02/27/2023 Medications amLODIPine (Norvasc) 5 MG tablet 02/09/2023 Active apixaban (Eliquis) 2.5 MG tablet 2.5 mg 01/03/2023 Active aspirin 81 MG EC tablet Take 81 mg by mouth in the morning. Active Ascorbic Acid (vitamin C) 1000 MG tablet Take 1,000 mg by mouth in the morning. Active atorvastatin (Lipitor) 10 MG tablet Take 10 mg by mouth in the evening Active benazepril (Lotensin) 20 MG tablet Take 20 mg by mouth in the evening Active hydroCHLOROthia zide (HYDRODiuril) 12.5 MG tablet Take 1 tablet by mouth in the morning. 06/28/2022 Active rosuvastatin (Crestor) 20 MG tablet Take 20 mg by mouth 07/02/2024 Active Active Problems No known active problems Encounters Date Type Department Care Team Description 08/22/2024 Results Follow-Up [facility] [address] [place] [address] Jennifer Sanford APRN-MACY 08/18/2024 3:20 PM EDT Office Visit [facility] [address] [place] [address] Jennifer Sanford, STORAGE WORKER-ASSISTANT PROFESSOR OF GERMAN Neoplasm of unspecified behavior of bone, soft tissue, and skin 08/18/2024 Bamboo flowsheet [facility] [address] [place] [address] Jennifer Sanford, STORAGE WORKER-ASSISTANT PROFESSOR OF GERMAN 08/18/2024 Travel 07/17/2024 10:30 AM EDT Procedure Visit [facility] [address] [facility] [address] [place] [address] Ashutosh Ac, DPDominick Pain due to onychomycosis of toenails of both feet (Primary Dx); Xerosis cutis 07/17/2024 Bamboo flowsheet [facility] [address] [facility] [address] [place] [address] Ashutosh Ac DPM 07/17/2024 Travel from Last 3 Months Family History Medical History Relation Name Comments Dementia Father Kidney cancer Father Mental illness Father Heart disease Mother Hyperlipidemia Mother Hypertension Mother Stroke Mother Relation Name Status Comments Father Mother Social History Tobacco Use Types Packs/Day Years Used Date Smoking Tobacco: Former Cigarettes Smokeless Tobacco: Never Tobacco Cessation:Counseling Given: Yes Alcohol Use Standard Drinks/Week Comments Yes 0 [...] on file Sexual Orientation Not on file Last Filed Vital Signs Vital Sign Reading Time Taken Comments Blood Pressure 124/80 12/13/2023 11:28 AM EDT Pulse 85 12/13/2023 11:28 AM EDT Temperature - - Respiratory Rate 18 07/17/2024 10:27 AM EDT Oxygen Saturation - - Inhaled Oxygen Concentration - - Weight 81.6 kg (180 lb) 07/17/2024 10:27 AM EDT Height 172.7 cm (5' 8 ) 07/17/2024 10:27 AM EDT Body Mass Index 27.37 07/17/2024 10:27 AM EDT Plan of Treatment Upcoming Encounters Date Type Department Care Team (Late st Contact Info) Description 09/25/2024 10:50 AM EDT Procedure Visit [facility] [address] [facility] [address] [place] [address] Ashutosh Ac, DPDominick [address] [facility] [address] [place] [address] 10/28/2024 8:30 AM EDT Office Visit [facility] [address] [place] [address] Chey Diaz MD [address] [place], [place] [id number] 02/12/2025 10:55 AM EST Office Visit [facility] [address] [place] [address] Jennifer Sanford, SHI-ASSISTANT PROFESSOR OF GERMAN [address] [place] [address] Health Maintenance Due Date Last Done Comments Pneumococcal Vaccine: 65+ Ye ars (2 of 2 - PCV) 07/10/2017 07/10/2016 Influenza Vaccine (#1) 2024 4, 12/19/2023, 11/26/2022, Additional history exists Procedures Procedure Name Priority Date/Time Associated Diagnosis Comments SKIN / NAIL BIOPSY Routine 08/18/2024 3: 33 PM EDT Neoplasm of unspecified behavior of bone, soft tissue, and skin DERMATOPATHOLOGY EXAM Routine 08/18/2024 12:00 AM EDT Neoplasm of unspecified behavior of bone, soft tissue, and skin from Last 3 Months Results * Lesion biopsy (08/18/2024 3:33 PM EDT) Narrative WillPedroMonyDELMY king - 08/18/2024 3:33 PM EDT Type of [...] Amount of lidocaine used: 0.4 cc Jennifer Sanford STORAGE WORKER-ASSISTANT PROFESSOR OF GERMAN DERM PROCEDURE ORDERAB LES Final Result * Dermatopathology exam (08/18/2024 12:00 AM EDT) SPECIMEN TYPE ------ SPECIMEN: RIGHT MID HELIX ------ [facility] ICD10 Code C44.211 [facility] PROTOCOL F - FLAT [facility] Final Diagnosis NODULAR BASAL CELL CARCINOMA. [facility] Gross Text [facility] Microscopic Description Microscopic examination performed. [facility] CPT 85465*1 [facility] Skin Topography unknown / Unknown 08/18/2024 3:33 PM EDT Comment:Differential Diagnos is: BCC vs other Check Margins: No Size of lesion: 1.1 x 1.0 cm us Jennifer Sanford STORAGE WORKER-ASSISTANT PROFESSOR OF GERMAN LAB PATHOLOGY ORDERABL ES Final Result [facility] from Last 3 Months Insurance MEDICARE [facility] Care Teams Noodle Maker Relationship Specialty Start Date End Date Blu Humphrey DO [address] [facility] [place] [phone] PCP - General Internal Medicine 03/01/23
--- OUTSIDE RECORDS SUMMARY | 2024-09-01 20:55 | XMS_ITS | Encounter Summary ---
Author Organization [facility] Address [address] [place] [address] Care Team Providers Care Optical Instrument Specialist Name Role Phone Blu Humphrey Primary Care Provider Encounter Details Date Type Department Care Team (Late Contact Info) Description 08/22/2024 Results Follow-Up [facility] [address] [facility] [address] [place] [address] Jennifer Sanford, REGULATORY LEADER-SMALL BUSINESS SALES REPRESENTATIVE [address] [facility] [address] [place] [address] Social History Tobacco Use Types Packs/Day Years [...] [facility] [address] [place] [address] Ashutosh Ac DPM [address] [facility] 5 [place] [address] 10/28/2024 8:30 AM EDT Office Visit [facility] [address] [place] [address] Chey Diaz MD [address] [place] [address] 02/12/2025 10:55 AM EST Office Visit [facility] [address] [place] [address] Jennifer Sanford APRN-SMALL BUSINESS SALES REPRESENTATIVE [address] [place] [address] documented as of this encounter Visit Diagnoses Not on filedocumented in this encounter Care Teams Optical Instrument Specialist Relationship Specialty Start Date End Date Blu Humphrey DO [address] [facility] [place] [address] PCP - General Internal Medicine 03/01/23 documented as of this encounter
--- OUTSIDE RECORDS SUMMARY | 2024-09-01 20:55 | XMS_ITS | Clinical Summary ---
Author Organization [facility] Address [address] [place], [place] [id number] Care Team Providers Care Mogul Operator Name Role Phone Blu Humphrey DO Primary Care Provider [phone] Allergies Active Allergy Reactions Criticality Noted Date Comments Sulfamethoxazole-Trimethoprim Hives 2015 Contrast Dye Hives High 03/15/2010 Medications atorvastatin (LIPITOR) 10 mg ORAL tablet ONCE DAILY Active warfarin 2 mg tablet Take 1 tablet by mouth once daily. 2mg/3mg Wed-Sun 0 2 Active traMADol (ULTRAM) 50 mg tablet Take 50 mg by mouth as needed. Active clobetasol (TEMOVATE) 0.05 % cream Apply 1 application to affected area as needed. 6 Active fluocinonide (LIDEX) 0.05 % cream Apply 1 application to affected area as needed. 6 Active benazepril (LOTENSIN) 20 mg tablet Take 20 mg by mouth once daily. Active Active Problems Problem Noted Date Diagnosed Date Thrombocytopenia 06/11/2015 Leukopenia 06/11/2015 Unintentional weight change 06/11/2015 Pain in joint, shoulder region 04/12/2010 Muscular wasting and disuse atrophy, not elsewhere classified 04/12/2010 Benign neoplasm of skin 09/18/2006 CH[facility] SOLAR SKIN DAMAGE NOSx1 08/02/2006 Family History Medical History Relation Comments Cancer Brother 1 Coronary Artery Disease Brother 1 Multiple myeloma [Other] Brother 2 Arthritis Father Cancer Father Dementia [Other] Father Kidney removal [Other] Father CHF [Other] Mother Diabetes Mother HTN [Other] Mother HYperlipidemia [Other] Mother Hypertension Mother Lipids Mother Myesthenia Gravis [Other] Mother Stroke Mother Colon Cancer Sister Relation Status Comments Brother 1 Brother 2 Father Mother Sister Social History Tobacco Use Types Packs/Day Years Used Date Smoking Tobacco: Former Cigarettes 2 5 0 10/10/1962 - 10/11/1967 Smokeless Tobacco: Never Comments:pt smoked until he was 21 years old then quit Alcohol Use Standard Drinks/Week Comments Yes 0 (1 standard drink = 0.6 oz pur e alcohol) 3-4 beers daily Area Deprivation Index Answer Date Jerry rded National Score (1-100), lower number is lower ri sk Not on file 02/01/2020 State Score (1-10), lower number is lower risk N ot on file 02/01/2020 Data from: https://www.neighborhoodatlas.medicine.[facility].edu/. Last address used for calculation Not on file 02/01/2020 Sex and Gender Information Value Date Recorded Sex Assigned at Not on file Legal Sex Male 7:32 AM EST Gender Identity Not on file Sexual Orientation Not on file Occupation Industry Job Start Date Job End Date Not on file Not on file Not on file Not on file Last Filed Vital Signs Vital Sign Reading Time Taken Comments Blood Pressure 123/70 08/13/2017 11:26 AM EDT Pulse 66 08/13/2017 11:26 AM EDT Temperature 36.9 C (98.4 F) 12/24/2015 9:56 AM EDT Respiratory Rate 16 08/13/2017 11:26 AM EDT Oxygen Saturation 96% 08/13/2017 11:26 AM EDT Inhaled Oxygen Concentration - - Weight 80.7 kg (178 lb) 08/13/2017 11:26 AM EDT Height 168.9 cm (5' 6.5 ) 08/13/2017 11:26 AM ED T Body Mass Index 28.3 08/13/2017 11:26 AM EDT Plan of Treatment Health Maintenance Due Date Last Done Comments Anxiety Screening 1963 Depression Screening 1963 DTaP,Tdap,Td Vaccine (1 - Tdap) 01/12/1964 Pneumococcal Vaccine: 50+ (1 of 1 - PCV) 1995 Shingrix Vaccine (1 of 2) 1995 Diabetes Screening 06/10/2018 06/11/2015, 1 03/13/2010, 09/13/2010, Additional history exists RSV Vaccine (1 - 1-dose 75+ series) 01/12/2020 Covid-19 Vaccine (1 - 2023-2 5 season) 2023 Advance Directive Discussion 02/27/2024 Influenza Vaccine (Season Ended) 2024 Medical Devices Implanted Type Area Bilingual Receptionist Device Identifier Shelf Expiration Date Model / Serial / Lot [place] Suture Corkscrew 5.5mm - [id number] Implanted:Qty: 3 on 04/11/2010 at [facility] [place] Right: Bone - Shoulder [employer] 02/26/2012 [id number] / / [id number] Bioswivelock Cld Eye 4.18x50yc - [id number] Implanted:Qty: 1 on 04/11/2010 at [facility] Suture [place] Right: Bone - Shoulder [employer] 08/25/2010 [id number] / / [id number] Procedures Procedure Name Priority Date/Time Associated Diagnosis Comments BASIC METABOLIC PANEL Routine 06/11/2015 1:23 PM EDT Leukopenia, unspecified type Thrombocytopenia (HCC) Unintentional weight change from Last 3 Months or Most Recently Relevant to Health Maintenance Results * BASIC METABOLIC PNL (06/11/2015 1:23 PM EDT) Pathologist [facility] [place] Glucose 89 65 - 100 mg/dL 06/11/2015 11:18 PM EDT [facility] BUN 16 10 - 25 mg/dL 06/11/2015 11:18 PM EDT [facility] Creatinine 0.79 0.70 - 1.40 mg/dL 06/11/2015 11:18 PM EDT [facility] Sodium 139 135 - 146 mmol/L 06/11/2015 11:18 PM EDT [facility] Potassium 4.9 3.5 - 5.0 mmol/L 06/11/2015 11:18 PM EDT [facility] Chloride 102 98 - 110 mmol/L 06/11/2015 11:18 PM EDT [facility] CO2 25 23 - 32 mmol/L 06/11/2015 11:18 PM EDT [facility] Anion Gap 12 0 - 15 mmol/L 06/11/2015 11:18 PM EDT [facility] Calcium 9.2 8.5 - 10.5 mg/dL 06/11/2015 11:18 PM EDT [facility] eGFR- >60 06/11/2015 11:18 PM EDT [facility] eGFR-All Other Races >60 . 06/11/2015 11:18 PM EDT [facility] Comment: eGFR (Estimated GFR) Units of measure: mL/min/1.73 meters squared eGFR is derived from the reexpressed MDRD Study equation using the following parameters: serum creatinine, age, gender and race. The creatinine assay has been calibrated to be traceable to IDMS. An eGFR <60 mL/min/1.73m2 for >3 months is consistent with chronic kidney disease. Refer to KDOQI guidelines for clinical interpretation. In patients with unstable renal function, e.g. those with acute kidney injury, the eGFR may not accurately reflect actual GFR. Blood specimen (specimen) BLOOD SPECIMEN / Unknown 06/11/2015 1:23 PM EDT 06/11/2015 1:46 PM EDT [facility] Final Result [facility] [address] [place] [address] from Last 3 Months or Most Recently Relevant to Health Maintenance Insurance [facility] Member Subscriber Plan / Payer (Ef fective 2015-Present) Name:Len Wang Relation to Subscriber:Self Name:Len Wang Payer ID:[id number] (NAIC) Group ID:Not on file Type:Indemni Address: [facility] [id number] [id number] [place] [address] Care Teams Mogul Operator Relationship Specialty Start Date End Date Blu Humphrey DO PCP - General 11/22/04
--- OUTSIDE RECORDS SUMMARY | 2024-09-01 20:55 | XMS_ITS | Encounter Summary ---
Author Organization [facility] Address [address] [place] [address] Phone Care Team Providers Care It Risk Advisor Name Role Phone Blu Humphrey DO Primary Care Provider [phone] Encounter Details Date Type Department Care Team (Late st Contact Info) Description 05/05/2024 Scanned Document [facility] [address] [place] [id number] Scanning, Generic Provider Social History Tobacco Use Types Packs/Day Years Used Date Smoking Tobacco: Former Cigarettes Q uit: 1965 Smokeless Tobacco: Never Alcohol Use Standard Drinks/Week Comments Yes 28 (1 standard drink = 0.6 oz pu re alcohol) Sex and Gender Information Value Date Recorded Sex Assigned at Not on file Legal Sex Male 8:53 AM EDT Gender Identity Not on file Sexual Orientation Not on file COVID-19 Exposure Response Date Recorded In the last 10 days, have yo u been in contact with someone who was confirmed or suspected to have Coronavirus/COVID-19? No / Unsure 04/29/2024 6:47 PM EST documented as of this encounter Plan of Treatment Upcoming Encounters Date Type Department Care Team (Late st Contact Info) Description 03/31/2025 10:20 AM EST Office Visit [facility] [address] [facility] [address] [place] [address] Teo Ragsdale MD [address] [facility] [address] [place], [place] [phone] documented as of this encounter Visit Diagnoses Not on filedocumented in this encounter Additional Health Concerns Assessment Noted Time A fall risk assessment has been complete d for the patient 03/26/2024 11:34 AM EST documented as of this encounter Care Teams It Risk Advisor Relationship Specialty Start Date End Date Blu Humphrey DO [address] [place] [address] PCP - General Internal Medicine 03/26/24 documented as of this encounter
--- OUTSIDE RECORDS SUMMARY | 2024-09-01 20:55 | XMS_ITS | Encounter Summary ---
Author Organization [facility] Address [address] [place] [address] Care Team Providers Care Health Care Consultant Name Role Phone Blu Humphrey Primary Care Provider [phone] Encounter Details Date Type Department Care Team (Latest Contact Info) Description 08/18/2024 Travel Social History Tobacco Use Types Packs/Day Years [...] 09/25/2024 10:50 AM EDT Procedure Visit [facility] [address] [facility] [address] [place] [address] Ashutosh Ac DPM [facility] [facility] [address] [place] [address] 10/28/2024 8:30 AM EDT Office Visit [facility] [address] [place] [address] Chey Diaz MD [address] [place] [address] 02/12/2025 10:55 AM EST Office Visit [facility] [address] [place] [address] Jennifer Sanford, CHEMICAL ECONOMIST-TRANSCRIBING MACHINE MECHANIC [address] [place] [address] documented as of this encounter Visit Diagnoses Not on filedocumented in this encounter Care Teams Health Care Consultant Relationship Specialty Start Date End Date Blu Humphrey DO [address] [facility] [place] [address] PCP - General Internal Medicine 03/01/23 documented as of this encounter
--- OUTSIDE RECORDS SUMMARY | 2024-09-01 20:55 | XMS_ITS | Clinical Summary ---
Author Organization [facility] Address [address] [place] [address] Care Team Providers Care Fugitive Detective Name Role Phone Blu Humphrey DO Primary Care Provider [phone] Allergies Active Allergy Reactions Criticality Noted Date Comments Sulfamethoxazole-Trimethoprim Rash Low 2020 Iodides Hives,Itching 07/15/2020 Medications benazepril (LOTENSIN) 20 MG tablet Take 20 mg by mouth every evening Active atorvastatin (LIPITOR) 10 MG tablet Take 10 mg by mouth every evening Active Ascorbic Acid (VITAMIN C) 1000 MG tablet Take 1,000 mg by mouth 2 times daily Active fluocinonide (LIDEX) 0.05 % cream Apply topically as needed (for occasional rash on lower legs) Uses very rarely Active Active Problems Problem Noted Date Diagnosed Date Hemarthrosis of right knee 08/21/2020 PFO (patent foramen ovale) with history of strok e 08/21/2020 Essential hypertension 08/21/2020 Postoperative anemia due to acute blood loss Chronic anticoagulation 08/21/2020 History of DVT (deep vein thrombosis) 08/10/2020 S/P total knee arthroplasty, right 08/09/2020 Resolved Problems Problem Noted Date Diagnosed Date Resolved Date Primary osteoarthritis of right knee 08/09/2020 08/09/2020 Immunizations Immunization Administration Dates Next Due COVID-19, PFIZER PURPLE top, DILUTE for use, (age 12 y+), 30mcg/0.3mL 04/18/2020,03/28/2020 Social History Tobacco Use Types Packs/Day Years [...] Sign Reading Time Taken Comments Blood Pressure 144/64 08/22/2020 7:16 AM EDT Pulse 67 08/22/2020 7:16 AM EDT Temperature 36.7 C (98.1 F) 08/22/2020 7:16 AM EDT Respiratory Rate 16 08/22/2020 7:16 AM EDT Oxygen Saturation 97% 08/22/2020 7:16 AM EDT Inhaled Oxygen Concentration - - Weight 81.6 kg (180 lb) 08/22/2020 5:53 AM EDT Height 172.7 cm (5' 8 ) 08/21/2020 11:09 AM EDT Body Mass Index 27.37 08/21/2020 11:09 AM EDT Plan of Treatment Health Maintenance Due Date Last Done Comments Lipids 1955 Depression Screen 1957 Hepatitis C screen 1963 DTaP/Tdap/Td vaccine (1 - Tdap) 01/12/1964 Shingles vaccine (1 of 2) 1995 Pneumococcal 50+ years Vacci ne (2 of 2 - PCV) 07/10/2017 07/10/2016 Respiratory Syncytial Virus (RSV) or age 60 yrs+ (1 - 1-dose 75+ series) 01/12/2020 COVID-19 Vaccine (3 - 2023-2 5 season) 2023 04/18/2020, 03/28/2020 Flu vaccine (#1) 09/26/2024 11/13/2017 Hepatitis A vaccine Aged Out No longe r eligible based on patient's age to complete this topic Hepatitis B vaccine Aged Out No longe r eligible based on patient's age to complete this topic Hib vaccine Aged Out No longer eligi ble based on patient's age to complete this topic Meningococcal (ACWY) vaccine Aged Out No longer eligible based on patient's age to complete this topic Meningococcal B vaccine Aged Out No l onger eligible based on patient's age to complete this topic Polio vaccine Aged Out No longer eligilbert estrada based on patient's age to complete this topic Medical Devices Implanted Type Area Driver'S License Examiner Device Identifier Shelf Expiration Date Model / Serial / Lot Upcharge Knee Primary Attune Aox Insert Depuy Synthes Implanted:Qty: 1 on 08/09/2020 by Pb Ferraro MD at [facility] Knee Right: Knee SYNTHES-PMM [id number] / / Cement Bne 40gm Full Dose Pmma W/O Antibio Hi Visc N Radpq Implanted:Qty: 2 on 08/09/2020 by Pb Ferraro MD at [facility] Right: Knee J [employer]- 04/25/2021 [id number] / / [id number] Component Pat Rok79um Knee Poly Anuel Medialized Nayla Attune Implanted:Qty: 1 on 08/09/2020 by Pb Ferraro MD at [facility] Right: Knee JNJ [employer]- 04/25/2025 [id number] / / [id number] Baseplate Tib Sz 7 Fix Bear Anuel Attune Implanted:Qty: 1 on 08/09/2020 by Pb Ferraro MD at [facility] Right: Knee J [employer]- 04/25/2030 [id number] / / [id number] Component Fem Sz 7 R Knee Post Stbl Anuel Attune Implanted:Qty: 1 on 08/09/2020 by Pb Ferraro MD at [facility] Right: Knee JNJ [employer]- 04/25/2030 [id number] / / [id number] Insert Tib Sz 7 Thk7mm Knee Post Stbl Fix Bear Attune Implanted:Qty: 1 on 08/09/2020 by Pb Ferraro MD at [facility] Right: Knee JNJ [employer]- 08/25/2022 [id number] / / [id number] Insurance MEDICARE [employer] MEDICARE SUPP Advance Directives * Full Code (Latest Code Status on File) Date Activated Date Inactivated Comments 08/21/2020 10:04 AM 08/22/2020 2:44 PM * Full Code Date Activated Date Inactivated Comments 08/09/2020 9:06 PM 08/10/2020 2:45 PM Care Teams Fugitive Detective Relationship Specialty Start Date End Date Blu Humphrey DO [address] [facility] [place] [address] PCP - General Internal Medicine 07/15/20
--- OUTSIDE RECORDS SUMMARY | 2024-09-01 20:55 | XMS_ITS | Clinical Summary ---
Author Organization [facility] Address [address] [place] [address] Phone Care Team Providers Care Head Orthopedic Team Physician Name Role Phone KamBlu Primary Care Provider [phone] Allergies Active Allergy Reactions Criticality Noted Date Comments Iodides Hives,Itching Medium 07/15/2020 Iodinated Contrast Media Hives High 03/15/2010 Sulfamethoxazole Hives Medium 02/27/2023 Sulfamethoxazole-Trimethoprim Hives,Rash Low 2015 Medications amLODIPine (Norvasc) 5 mg tablet Take 1 tablet (5 mg) by mouth once daily. 2 Active ascorbic acid (Vitamin C) 1,000 mg tablet Take 1 tablet (1,000 mg) by mouth once daily. Active benazepril (Lotensin) 20 mg tablet Take 1 tablet (20 mg) by mouth once daily in the evening. Active cholecalciferol (Vitamin D-3) 25 MCG (1000 UT) tablet Take 1 tablet (25 mcg) by mouth. 1 Active hydroCHLOROthiazide (HYDRODiuril) 12.5 mg tablet Take 1 tablet (12.5 mg) by mouth once daily. 3 Active aspirin 81 mg EC tablet Take 1 tablet (81 mg) by mouth once daily. Active apixaban (Eliquis) 2.5 mg tablet Take 1 tablet (2.5 mg) by mouth 2 times a day. Active cyanocobalamin (Vitamin B-12) 1,000 mcg tablet Take 1 tablet (1,000 mcg) by mouth once daily. Active traMADol (Ultram) 50 mg tablet Take 1 tablet (50 mg) by mouth if needed. Active rosuvastatin (Crestor) 20 mg tabletIndications:C oronary artery disease involving [place] coronary artery of [place] heart without angina pectoris,Hyperlipid emia, unspecified hyperlipidemia type Take 1 tablet (20 mg) by mouth once daily. 90 tablet 3 5 07/03/19 26 Active Active Problems Problem Noted Date Diagnosed Date CAD (coronary artery disease) 07/02/2024 Hyperlipidemia 07/02/2024 Shortness of breath 03/26/2024 BMI 27.0-27.9,adult 03/26/2024 Former smoker 03/26/2024 PFO (patent foramen ovale) ([facility]) 03/26/2023 High risk medication use 03/26/2023 Abnormal echocardiogram 02/27/2023 History of DVT (deep vein thrombosis) 02/27/2023 Hypertension 02/27/2023 Lacunar infarction (Multi) 02/27/2023 Encounters Date Type Department Care Team Description 07/02/2024 10:40 AM EDT Office Visit [place] [address] [address] Teo Ragsdale MD Coronary artery disease involving [place] coronary artery of [place] heart without angina pectoris; Hypertension, unspecified type; Hyperlipidemia, unspecified hyperlipidemia type; PFO (patent foramen ovale) ([facility]); History of DVT (deep vein thrombosis); High risk medication use; BMI 27.0-27.9,adult; Former smoker 07/02/2024 Travel 06/25/2024 Travel from Last 3 Months Immunizations Immunization Administration Dates Next Due Influenza, Unspecified 11/26/2021,2020,11/27/2019,11/13,01/15/2017 Influenza, seasonal, injectable 12/28/2023 Pfizer COVID-19 vaccine, 12 years and older, (30mcg/0.3mL) (Comirnaty) 11/29/2022 Pfizer COVID-19 vaccine, biv alent, age 12 years and older (30 mcg/0.3 mL) 11/15/2021 Pneumococcal polysaccharide vaccine, 23-valent, age 2 years and older (PNEUMOVAX 23) 07/10/2016 SARS-CoV-2, Unspecified 12/28/2023 Family History Medical History Relation Name Comments Cancer Brother Heart failure Brother Dementia Father Heart failure Father Kidney cancer Father CVA Mother Diabetes Mother Heart failure Mother Hyperlipidemia Mother Hypertension Mother Myasthenia gravis Mother Cancer Sister Relation Name Status Comments Brother Father Mother Sister Social History Tobacco Use Types Packs/Day Years Used Date Smoking Tobacco: Former Cigarettes Q uit: 1965 Smokeless Tobacco: Never Tobacco Cessation:Counseling Given: Not Answered Alcohol Use Standard Drinks/Week Comments Yes 28 (1 standard drink = 0.6 oz pu re alcohol) 3-4 beers daily Sex and Gender Information Value Date Recorded Sex Assigned at Not on file Legal Sex Male 8:53 AM EDT Gender Identity Not on file Sexual Orientation Not on file Last Filed Vital Signs Vital Sign Reading Time Taken Comments Blood Pressure 118/66 07/02/2024 10:46 AM EDT Pulse 68 07/02/2024 10:46 AM EDT Temperature - - Respiratory Rate - - Oxygen Saturation - - Inhaled Oxygen Concentration - - Weight 82.2 kg (181 lb 3.2 oz) 07/02/2024 10:46 AM EDT Height 171.5 cm (5' 7.5 ) 07/02/2024 10:46 AM ED T Body Mass Index 27.96 07/02/2024 10:46 AM EDT Plan of Treatment Upcoming Encounters Date Type Department Care Team (Late st Contact Info) Description 03/31/2025 10:20 AM EST Office Visit [facility] [address] [phone] Teo Ragsdale MD 703 [facility] 2, [address] [address] Health Maintenance Due Date Last Done Comments Lipid Panel 1945 Medicare Annual Wellness Visit (AWV) 1945 Diabetes Screening 1963 Hepatitis C Screening 1963 DTaP/Tdap/Td Vaccines (1 - Tdap) 1967 Zoster Vaccines (1 of 2) 1995 Pneumococcal Vaccine (2 of 2 - PCV) 07/10/2017 07/10/2016, 01/20/2015 RSV High Risk: (Elderly (60+) or Population) (1 - 1-dose 75+ series) 01/12/2020 COVID-19 Vaccine ( season) 2024 12/28/2023, 12/10/2023, 11/29/2022, Additional history exists Influenza Vaccine (#1) 2024 , 12/19/2023, 11/26/2022, Additional history exists HIB Vaccines Aged Out No longer eligi ble based on patient's age to complete this topic HPV Vaccines (No Doses Required) Completed Hepatitis A Vaccines Aged Out No long er eligible based on patient's age to complete this topic Hepatitis B Vaccines Aged Out No long er eligible based on patient's age to complete this topic IPV Vaccines Aged Out No longer eligi ble based on patient's age to complete this topic Meningococcal Vaccine Aged Out No renetta benjamin eligible based on patient's age to complete this topic Rotavirus Vaccines Aged Out No longer eligible based on patient's age to complete this topic Insurance MEDICARE PART A AND B [facility] MEDICARE PART A AND B [facility] Care Teams Head Orthopedic Team Physician Relationship Specialty Start Date End Date Blu Humphrey DO [address] [place] [address] PCP - General Internal Medicine 03/26/24
--- OUTSIDE RECORDS SUMMARY | 2024-09-01 20:55 | XMS_ITS | Encounter Summary ---
Author Organization [facility] Address [address] [place] [address] Phone Care Team Providers Care Neurological Surgeon Name Role Phone Blu Humphrey DO Primary Care Provider [phone] Blu Humphrey DO Primary Care Provider [phone] Encounter Details Date Type Department Care Team (Late st Contact Info) Description 02/09/2024 Scanned Document [facility] [address] [place] [id number] Scanning, Generic Provider Social History Tobacco Use [...] Description 03/31/2025 10:20 AM EST Office Visit [facility] 703 [facility] [address] [place] [address] Teo Ragsdale MD 703 [facility] 2, [address] [place] [address] documented as of this encounter Visit Diagnoses Not on filedocumented in this encounter Additional Health Concerns Assessment Noted Time A fall risk assessment has been complete d for the patient 03/26/2023 1:49 PM EST documented as of this encounter Care Teams Neurological Surgeon Relationship Specialty Start Date End Date Blu Humphrey DO PCP - General 11/09/22 03/25/24 Blu Humphrey DO [address] [place] [address] PCP - General Internal Medicine 03/26/24 documented as of this encounter
--- OUTSIDE RECORDS SUMMARY | 2024-09-01 20:55 | XMS_ITS | Encounter Summary ---
Author Organization [facility] Address [address] [place] [address] Care Team Providers Care Furnace Repair Mechanic Name Role Phone Blu Humphrey DO Primary Care Provider [phone] Encounter Details Date Type Department Care Team (Late st Contact Info) Description 08/21/2020 Direct Admit Orders [facility] [address] [place], [place] [id number] Rachel Mclean, PUMP ASSEMBLER - [facility] [address] [place] [address] Social History Tobacco Use Types Packs/Day Years [...] on filedocumented in this encounter Care Teams Furnace Repair Mechanic Relationship Specialty Start Date End Date Blu Humphrey DO [address] [place] [id number] PCP - General Internal Medicine 07/15/20 documented as of this encounter
--- OUTSIDE RECORDS SUMMARY | 2024-09-01 20:55 | XMS_ITS | Encounter Summary ---
Author Organization [facility] Address [address] [place] [address] Phone Care Team Providers Care Yarn Washer Name Role Phone Blu Humphrey DO Primary Care Provider [phone] Blu Humphrey DO Primary Care Provider [phone] Encounter Details Date Type Department Care Team (Late st Contact Info) Description 09/28/2022 Scanned Document [facility] [address] [place] [address] Conversion, Onbase Social History Tobacco Use Types Packs/Day Years Used Date Smoking Tobacco: Never Assessed Sex and Gender Information Value Date Recorded Sex Assigned at Not on file Legal Sex Male 8:53 AM EDT Gender Identity Not on file Sexual Orientation Not on file documented as of this encounter Plan of Treatment Upcoming Encounters Date Type Department Care Team (Late st Contact Info) Description 03/31/2025 10:20 AM EST Office Visit [facility] 703 [facility] [address] [place] [address] Teo Ragsdale MD 703 [facility] 2, [address] [place] [address] documented as of this encounter Procedures Procedure Name Priority Date/Time Associated Diagnosis Comments ECHOCARDIOGRAM 09/28/2022 documented in this encounter Results * ECHOCARDIOGRAM (09/28/2022) Narrative 09/28/2022 Ordered by an unspecified provider. us Onbase Conversion CV ECHO PROCEDURES Final Resul t documented in this encounter Visit Diagnoses Not on filedocumented in this encounter Care Teams Yarn Washer Relationship Specialty Start Date End Date Blu Humphrey DO PCP - General 11/09/22 03/25/24 Blu Humphrey DO [address] [place] [address] PCP - General Internal Medicine 03/26/24 documented as of this encounter
--- OUTSIDE RECORDS SUMMARY | 2024-09-01 20:55 | XMS_ITS | Encounter Summary ---
Author Organization [facility] Address [address] [place] [address] Phone Care Team Providers Care Primary Health Organisation Manager Name Role Phone Blu Humphrey DO Primary Care Provider [phone] Encounter Details Date Type Department Care Team (Late st Contact Info) Description 05/02/2024 Scanned Document [facility] [address] [place] [phone] Scanning, Generic Provider Social History Tobacco Use [...] Description 03/31/2025 10:20 AM EST Office Visit [facility] 703 [facility] [address] [place] [address] Teo Ragsdale MD [address]03 [facility] 2, [address] [place], [place] [id number] documented as of this encounter Visit Diagnoses Not on filedocumented in this encounter Additional Health Concerns Assessment Noted Time A fall risk assessment has been complete d for the patient 03/26/2024 11:34 AM EST documented as of this encounter Care Teams Primary Health Organisation Manager Relationship Specialty Start Date End Date Blu Humphrey DO [address] [place] [address] PCP - General Internal Medicine 03/26/24 documented as of this encounter
--- OUTSIDE RECORDS SUMMARY | 2024-09-01 20:55 | XMS_ITS | Encounter Summary ---
Author Organization [facility] Address [address] [place] [address] Phone Care Team Providers Care Load Dispatcher Name Role Phone Blu Humphrey DO Primary Care Provider [phone] Blu Humphrey DO Primary Care Provider [phone] Encounter Details Date Type Department Care Team (Late st Contact Info) Description 11/06/2022 Scanned Document [facility] [address] [place] [address] Conversion, Onbase Social History Tobacco Use Types Packs/Day Years Used Date Smoking Tobacco: Never Assessed Sex and Gender Information Value Date Recorded Sex Assigned at Not on file Legal Sex Male 8:53 AM EDT Gender Identity Not on file Sexual Orientation Not on file documented as of this encounter Functional Status * Little interest or pleasure in doing things Answer Date of Assessment Author Not at all 11/09/2022 9:56 AM EDT Conversio n, [employer] Vitals documented as of this encounter Plan of Treatment Upcoming Encounters Date Type Department Care Team (Late st Contact Info) Description 03/31/2025 10:20 AM EST Office Visit [facility] 703 [facility] [address] [place] [address] Teo Ragsdale MD 703 [facility] 2, [address] [place] [address] documented as of this encounter Visit Diagnoses Not on filedocumented in this encounter Care Teams Load Dispatcher Relationship Specialty Start Date End Date Blu Humphrey DO PCP - General 11/09/22 03/25/24 Blu Humphrey DO [address] [place] [address] PCP - General Internal Medicine 03/26/24 documented as of this encounter
== END 2024-09-01 20:54 | disposition home or self-care (01) ==
LOC: SLEEP 20:53
PROVIDERS: PCP Internal Medicine; Visit Provider Internal Medicine
DX: G47.33 Obstructive sleep apnea (adult) (pediatric) (principal)
CPT/HCPCS: 95810

== ENCOUNTER 2024-09-23 08:02 | Outpatient (OUT) | payer MEDICARE, SELFPAY ==
--- OUTSIDE RECORDS SUMMARY | 2024-09-23 08:03 | XMS_ITS | Clinical Summary ---
Author Organization [facility] Address [address] [place] [address] Care Team Providers Care Biological Science Technician Name Role Phone Blu Humphrey Primary Care Provider [phone] Allergies Active Allergy Reactions Criticality Noted Date [...] Department Care Team Description 08/22/2024 Results Follow-Up [facility] [address] [place] [address] Jennifer Sanford APRN-MACY 08/18/2024 3:20 PM EDT [facility] [address] [place] [address] Jennifer Sanford LOT PORTER-GATE KEEPER Neoplasm of unspecified behavior of bone, soft tissue, and skin 08/18/2024 Bamboo flowsheet [facility] [place] [facility] [address] [place] [address] Jennifer Sanford APRN-MACY 08/18/2024 Travel 07/17/2024 10:30 AM EDT Procedure Visit [facility] [address] [place] [address] Ashutosh Ac DPM Pain due to onychomycosis of toenails of both feet (Primary Dx); Xerosis cutis 07/17/2024 Bamboo flowsheet [facility] [address] [place] [phone] Ashutosh Ac DPM 07/17/2024 Travel from Last [...] EDT Procedure Visit [facility] [address] [facility] [address] [place] [address] Ashutosh Ac, DPM [address] [facility] [address] [place] [address] 10/28/2024 8:30 AM EDT Office Visit [facility] [place] [facility] [address] [place] [address] Chey Diaz MD [address] [place] [address] 02/12/2025 10:55 AM EST Office Visit [facility] [facility] [address] [place] [address] Jennifer Sanford, LOT PORTER-GATE KEEPER [address] [place] [address] Health Maintenance Due Date Last Done Comments [...] of lidocaine used: 0.4 cc Jennifer Sanford APRN-GATE KEEPER DERM PROCEDURE ORDERAB LES Final Result * Dermatopathology exam (08/18/2024 12:00 AM EDT) SPECIMEN TYPE ------ SPECIMEN: RIGHT MID HELIX ------ [facility] ICD10 Code C44.211 [facility] PROTOCOL F - FLAT [facility] Final Diagnosis NODULAR BASAL CELL CARCINOMA. [facility] Gross Text [facility] Microscopic Description Microscopic examination performed. [facility] CPT 06449*1 [facility] Skin Topography unknown / Unknown 08/18/2024 3:33 PM EDT Comment:Differential Diagnos is: BCC vs other Check Margins: No Size of lesion: 1.1 x 1.0 cm us Jennifer Marianna Sanford LOT PORTER-GATE KEEPER LAB PATHOLOGY ORDERABL ES Final Result [facility] from Last [address] [facility] Care Teams Biological Science Technician Relationship Specialty Start Date End Date Blu Humphrey DO [address] [facility] [place] [address] PCP - General Internal Medicine 03/01/23
--- OUTSIDE RECORDS SUMMARY | 2024-09-23 08:03 | XMS_ITS | Clinical Summary ---
Author Organization [facility] Address [address] [place], [place] [address] Care Team Providers Care Cutter Hand Name Role Phone Blu Humphrey DO Primary Care Provider [phone] Allergies Active Allergy Reactions Criticality Noted Date [...] N ot on file 02/01/2020 Data from: [email or web address] Last address used for calculation Not [...] Vaccine (1 - 1-dose 75+ series) 01/12/2020 Advance Directive Discussion 02/27/2024 Influenza Vaccine (#1) 2024 Medical Devices Implanted Type Area Non Acoustic Operator Device Identifier Shelf Expiration Date Model / Serial / Lot Liguori Suture Corkscrew 5.5mm - [id number] Implanted:Qty: 3 on 04/11/2010 at [facility] Liguori Right: Bone - Shoulder [employer] 02/26/2012 [id number] CF / / [id number] Bioswivelock Cld Eye [id number] - [id number] Implanted:Qty: 1 on 04/11/2010 at [facility] Suture Liguori Right: Bone - Shoulder [employer] 08/25/2010 [id number] / / [id number] Procedures Procedure Name Priority Date/Time Associated Diagnosis Comments BASIC METABOLIC PANEL Routine 06/11/2015 1:23 PM EDT Leukopenia, unspecified type Thrombocytopenia (HCC) Unintentional weight change from Last 3 Months or Most Recently Relevant to Health Maintenance Results * BASIC METABOLIC PNL (06/11/2015 1:23 PM EDT) Glucose 89 65 - 100 mg/dL 06/11/2015 11:18 PM EDT [facility] BUN 16 10 - 25 mg/dL 06/11/2015 11:18 PM EDT [facility] Creatinine 0.79 0.70 - 1.40 mg/dL 06/11/2015 11:18 PM EDT [facility] Sodium 139 135 - 146 mmol/L 06/11/2015 11:18 PM EDT [facility] Potassium 4.9 3.5 - 5.0 mmol/L 06/11/2015 11:18 PM EDT [facility] Chloride 102 98 - 110 mmol/L 06/11/2015 11:18 PM EDT [facility] CO2 25 23 - 32 mmol/L 06/11/2015 11:18 PM EDT [facility] Anion Gap 12 0 - 15 mmol/L 06/11/2015 11:18 PM EDT [facility] Calcium 9.2 8.5 - 10.5 mg/dL 06/11/2015 11:18 PM EDT [facility] eGFR- >60 06/11/2015 11:18 PM EDT [facility] eGFR-All Other Races >60 . 06/11/2015 11:18 PM EDT [facility] Comment: eGFR (Estimated GFR) Units of [...] PM EDT [facility] Final Result [facility] [address] [place] [address] from Last 3 Months or Most Recently Relevant to Health Maintenance Insurance [facility] MEDICARE Care Teams Cutter Hand Relationship Specialty Start Date End Date Blu Humphrey DO PCP - General 11/22/04
--- OUTSIDE RECORDS SUMMARY | 2024-09-23 08:03 | XMS_ITS | Encounter Summary ---
Author Organization [facility] Address [address] [place] [address] Phone Care Team Providers Care Curtains And Draperies Salesperson Name Role Phone Blu Humphrey DO Primary Care Provider [phone] Blu Humphrey DO Primary Care Provider [phone] Encounter Details Date Type Department Care Team (Late st Contact Info) Description 09/28/2022 Scanned Document [facility] [address] [place] [address] Conversion, Onbase Social History Tobacco Use Types [...] Description 03/31/2025 10:20 AM EST Office Visit [facility] 703 [facility] [address] [place] [address] Teo Ragsdale MD 703 [facility] 2, [address] [place] [address] documented as of this encounter Procedures Procedure Name Priority Date/Time Associated Diagnosis Comments ECHOCARDIOGRAM 09/28/2022 documented in this encounter Results * ECHOCARDIOGRAM (09/28/2022) Narrative 09/28/2022 Ordered by an unspecified provider. us Onbase Conversion CV ECHO PROCEDURES Final Resul t documented in this encounter Visit Diagnoses Not on filedocumented in this encounter Care Teams Curtains And Draperies Salesperson Relationship Specialty Start Date End Date Blu Humphrey DO PCP - General 11/09/22 03/25/24 Blu Humphrey DO [address] [place] [address] PCP - General Internal Medicine 03/26/24 documented as of this encounter
--- OUTSIDE RECORDS SUMMARY | 2024-09-23 08:03 | XMS_ITS | Encounter Summary ---
Author Organization [facility] Address [address] [facility] [place] [address] Care Team Providers Care Stem Frazer Name Role Phone Blu Humphrey Primary Care Provider [phone] Encounter Details Date Type Department Care Team (Late Contact Info) Description 08/22/2024 Results Follow-Up [facility] [address] [facility] [address] [place] [address] Jennifer Sanford, CATTLE INSPECTOR-CELEBRITY MANAGER [address] [facility] [address] [place] [address] Social History Tobacco Use Types Packs/Day Years [...] Encounters Date Type Department Care Team (Late Contact Info) Description 09/25/2024 10:50 AM EDT Procedure Visit [facility] [address] [place] [address] Ashutosh Ac DPM [address] [facility] 5 [place] [address] 10/28/2024 8:30 AM EDT Office Visit [facility] [address] [place] [address] Chey Diaz MD [address] [place] [address] 02/12/2025 10:55 AM EST Office Visit [facility] [address] [place] [address] Jennifer Sanford, CATTLE INSPECTOR-CELEBRITY MANAGER [address] [place] [address] documented as of this encounter Visit Diagnoses Not on filedocumented in this encounter Care Teams Stem Frazer Relationship Specialty Start Date End Date Blu Humphrey DO [address] [facility] [place] [address] PCP - General Internal Medicine 03/01/23 documented as of this encounter
--- OUTSIDE RECORDS SUMMARY | 2024-09-23 08:03 | XMS_ITS | Encounter Summary ---
Author Organization [facility] Address [address] [place] [address] Phone Care Team Providers Care Blueprint Maker Name Role Phone Blu Humphrey DO Primary Care Provider [phone] Blu Humphrey DO Primary Care Provider [phone] Encounter Details Date Type Department Care Team (Late st Contact Info) Description 11/06/2022 Scanned Document [facility] [address] [place] [address] Conversion, Onbase Social History Tobacco Use Types [...] Description 03/31/2025 10:20 AM EST Office Visit [facility] 703 [facility] [address] [place] [address] Teo Ragsdale MD 703 [facility] 2, [address] [place] [address] documented as of this encounter Visit Diagnoses Not on filedocumented in this encounter Care Teams Blueprint Maker Relationship Specialty Start Date End Date Blu Humphrey DO PCP - General 11/09/22 03/25/24 Blu Humphrey DO [address] [place] [address] PCP - General Internal Medicine 03/26/24 documented as of this encounter
--- OUTSIDE RECORDS SUMMARY | 2024-09-23 08:06 | XMS_ITS | Encounter Summary ---
Author Organization [facility] Address [address] [place] [address] Phone Care Team Providers Care Motor Carrier Inspector Name Role Phone Blu Humphrey DO Primary Care Provider [phone] Blu Humphrey DO Primary Care Provider [phone] Encounter Details Date Type Department Care Team (Late st Contact Info) Description 02/09/[address] [facility] [address] [place] [phone] Scanning, Generic Provider Social History Tobacco Use [...] Description 03/31/2025 10:20 AM EST Office Visit [facility] [address] [facility] [address] [place] [address] Teo Ragsdale MD 703 [facility] 2, [address] [place] [address] documented as of this encounter Visit Diagnoses Not on filedocumented in this encounter Additional Health Concerns Assessment Noted Time A fall risk assessment has been complete d for the patient 03/26/2023 1:49 PM EST documented as of this encounter Care Teams Motor Carrier Inspector Relationship Specialty Start Date End Date Blu Humphrey DO PCP - General 11/09/22 03/25/24 Blu Humphrey DO [address] [place] [address] PCP - General Internal Medicine 03/26/24 documented as of this encounter
--- OUTSIDE RECORDS SUMMARY | 2024-09-23 08:06 | XMS_ITS | Encounter Summary ---
Author Organization [facility] Address [address] [place] [address] Phone Care Team Providers Care Cryptographic Machine Operator Name Role Phone Blu Humphrey DO Primary Care Provider [phone] Encounter Details Date Type Department Care Team (Late st Contact Info) Description 05/05/2024 Scanned Document [facility] [address] [place] [phone] Scanning, Generic Provider Social History Tobacco Use [...] Visit [facility] 703 [facility] [address] [place] [address] Teo Ragsdale MD [address] [facility] 2, [address] [place], [place] [phone] documented as of this encounter Visit Diagnoses Not on filedocumented in this encounter Additional Health Concerns Assessment Noted Time A fall risk assessment has been complete d for the patient 03/26/2024 11:34 AM EST documented as of this encounter Care Teams Cryptographic Machine Operator Relationship Specialty Start Date End Date Blu Humphrey DO [address] [place] [address] PCP - General Internal Medicine 03/26/24 documented as of this encounter
--- OUTSIDE RECORDS SUMMARY | 2024-09-23 08:06 | XMS_ITS | Clinical Summary ---
Author Organization [facility] Address [address] [place] [address] Phone Care Team Providers Care Hander In Name Role Phone KamBlu Primary Care Provider [phone] Allergies Active Allergy Reactions Criticality Noted Date [...] 20 mg tabletIndications:C oronary artery disease involving quinault coronary artery of quinault heart without angina pectoris,Hyperlipid emia, unspecified hyperlipidemia type Take 1 tablet (20 mg) by mouth once daily. 90 tablet 3 5 07/03/19 26 Active Active Problems Problem Noted Date Diagnosed Date CAD (coronary artery disease) 07/02/2024 Hyperlipidemia 07/02/2024 Shortness of breath 03/26/2024 BMI 27.0-27.9,adult 03/26/2024 Former smoker 03/26/2024 PFO (patent foramen ovale) ([facility]) 03/26/2023 High risk medication use 03/26/2023 Abnormal echocardiogram 02/27/2023 History of DVT (deep vein thrombosis) 02/27/2023 Hypertension 02/27/2023 Lacunar infarction (Multi) 02/27/2023 Encounters Date Type Department Care Team Description 07/02/2024 10:40 AM EDT Office Visit [place] [id number] [address] Teo Ragsdale MD Coronary artery disease involving quinault coronary artery of quinault heart without angina pectoris; Hypertension, unspecified type; Hyperlipidemia, unspecified hyperlipidemia type; PFO (patent foramen ovale) ([facility]); History of DVT (deep vein thrombosis); [...] Description 03/31/2025 10:20 AM EST Office Visit [facility] [address] [phone] Teo Ragsdale MD 703 [facility] 2, [address] [address] Health Maintenance Due Date Last Done Comments [...] age to complete this topic HPV Vaccines Aged Out No longer eligi ble based on patient's age to complete this topic Hepatitis A Vaccines Aged Out No long [...] topic Insurance MEDICARE PART A AND B [facility] MEDICARE PART A AND B [facility] Care Teams Hander In Relationship Specialty Start Date End Date Blu Humphrey DO [address] [place] [address] PCP - General Internal Medicine 03/26/24
--- OUTSIDE RECORDS SUMMARY | 2024-09-23 08:06 | XMS_ITS | Encounter Summary ---
Author Organization [facility] Address [address] [place] [address] Phone Care Team Providers Care Coal Washer Tender Name Role Phone Blu Humphrey DO Primary Care Provider [phone] Encounter Details Date Type Department Care Team (Late st Contact Info) Description 05/02/2024 Scanned Document [facility] [address] [place] [phone] Scanning, Generic Provider Social History Tobacco Use [...] Description 03/31/2025 10:20 AM EST Office Visit [facility] 703 [facility] [address] [place] [address] Teo Ragsdale MD [address] [facility] 2, [address] [place], [place] [phone] documented as of this encounter Visit Diagnoses Not on filedocumented in this encounter Additional Health Concerns Assessment Noted Time A fall risk assessment has been complete d for the patient 03/26/2024 11:34 AM EST documented as of this encounter Care Teams Coal Washer Tender Relationship Specialty Start Date End Date Blu Humphrey DO [address] [place] [address] PCP - General Internal Medicine 03/26/24 documented as of this encounter
--- OUTSIDE RECORDS SUMMARY | 2024-09-23 08:07 | XMS_ITS | Encounter Summary ---
Author Organization [facility] Address [address] [facility], [address] [place] [address] Care Team Providers Care Angle Roll Operator Name Role Phone Blu Humphrey DO Primary Care Provider [phone] Encounter Details Date Type Department Care Team (Late st Contact Info) Description 08/24/2020 FollowUp Telephone Encounter [facility] [address] [place] [address] Jacqueline Byers, ILYA Social History Tobacco Use Types Packs/Day Years [...] had pain after working with OPPT in [facility] and went to the ED, INR was evaluated and was given Vitamin K and 2 units of plasma and transferred to [facility] ED to be admitted for hemoarthorsis. Pt denied any bleeding. Was on coumadin and lovenox at home post op 08/09/[address]KA [address] Dr. Ferraro to bridge until therapeutic at2-3 INR. 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 Was discharged from [facility] on 2.5mf eliquis BIDto prevent DVT and [...] on filedocumented in this encounter Care Teams Angle Roll Operator Relationship Specialty Start Date End Date Blu Humphrey DO [address] [place] [phone] PCP - General Internal Medicine 07/15/20 documented as of this encounter
--- OUTSIDE RECORDS SUMMARY | 2024-09-23 08:08 | XMS_ITS | Clinical Summary ---
Author Organization [facility] Address [address] [facility], [address] [place] [address] Care Team Providers Care Chemistry Tutor Name Role Phone Blu Humphrey DO Primary Care Provider [phone] Allergies Active Allergy Reactions Criticality Noted Date [...] topic Polio vaccine Aged Out No longer elig ible based on patient's age to complete this topic Medical Devices Implanted Type Area Law Writer Device Identifier Shelf Expiration Date Model / Serial / Lot Upcharge Knee Primary Attune Aox Insert Depuy Synthes Implanted:Qty: 1 on 08/09/2020 by Pb Ferraro MD at [facility] Knee Right: Knee SYNTHES-PMM [id number] / / Cement Bne 40gm Full Dose Pmma W/O Antibio Hi Visc N Radpq Implanted:Qty: 2 on 08/09/2020 by Pb Ferraro MD at [facility] Right: Knee [facility] [employer]- 04/25/2021 [id number] / / [id number] Component Pat [id number] Knee Poly Anuel Medialized Nayla Attune Implanted:Qty: 1 on 08/09/2020 by Pb Ferraro MD at [facility] Right: Knee [facility] [employer]- 04/25/2025 [id number] / / [id number] Baseplate Tib Sz 7 Fix Bear Anuel Attune Implanted:Qty: 1 on 08/09/2020 by Pb Ferraro MD at [facility] Right: Knee [facility] [employer]- 04/25/2030 [id number] / / [id number] Component Fem Sz 7 R Knee Post Stbl Anuel Attune Implanted:Qty: 1 on 08/09/2020 by Pb Ferraro MD at [facility] Right: Knee [facility] [employer]- 04/25/2030 [id number] / / [id number] Insert Tib Sz 7 Thk7mm Knee Post Stbl Fix Bear Attune Implanted:Qty: 1 on 08/09/2020 by Pb Ferraro MD at [facility] Right: Knee J [employer]- 08/25/2022 [id number] / / [id number] Insurance MEDICARE [employer] MEDICARE SUPP Member Subscriber Plan / Payer (Ef fective 2014-Present) Name:Len Noriega Relation to Subscriber:Self Name:Len Noriega Payer ID:[id number] (NAIC) Group ID:Not on file Type:Not on file Address: [address] [place] [id number] Advance Directives * Full Code (Latest Code Status on File) Date Activated Date Inactivated Comments 08/21/2020 10:04 AM 08/22/2020 2:44 PM * Full Code Date Activated Date Inactivated Comments 08/09/2020 9:06 PM 08/10/2020 2:45 PM Care Teams Chemistry Tutor Relationship Specialty Start Date End Date Blu Humphrey DO [address] [facility] [place] [phone] PCP - General Internal Medicine 07/15/20
--- OUTSIDE RECORDS SUMMARY | 2024-09-23 08:08 | XMS_ITS | Encounter Summary ---
Author Organization [facility] Address [address] [facility], [address] [place] [address] Care Team Providers Care Gang Plank Workman Name Role Phone Blu Humphrey DO Primary Care Provider [phone] Encounter Details Date Type Department Care Team ([facility] st Contact Info) Description 08/12/2020 FollowUp Telephone Encounter [facility] [address] [place] [address] Jacqueline Byers RN Social History Tobacco Use [...] on filedocumented in this encounter Care Teams Gang Plank Workman Relationship Specialty Start Date End Date Blu Humphrey DO [address] [place] [address] PCP - General Internal Medicine 07/15/20 documented as of this encounter
--- OUTSIDE RECORDS SUMMARY | 2024-09-23 08:09 | XMS_ITS | Encounter Summary ---
Author Organization [facility] Address [address] [facility], [address] [place] [address] Care Team Providers Care Commission Auditor Name Role Phone Blu Humphrey DO Primary Care Provider [phone] Encounter Details Date Type Department Care Team (Late st Contact Info) Description 08/21/2020 Direct Admit Orders [facility] [address] [place], [place] [phone] Rachel Mclean, COURT MANAGER - [facility] [address] [place] [address] Social History Tobacco Use Types Packs/Day Years [...] on filedocumented in this encounter Care Teams Commission Auditor Relationship Specialty Start Date End Date Blu Humphrey DO [address] [place] [phone] PCP - General Internal Medicine 07/15/20 documented as of this encounter
--- OUTSIDE RECORDS SUMMARY | 2024-09-23 08:25 | XMS_ITS | CCD ---
Author Organization [facility] Care Team Providers Care Cranberry Sorter Name Role Phone CURT CHOWDHURY Unavailable Unavailable BLU VELEZ Unavailable Unavailable Blu Velez DO Primary Care Provider [phone] BLU VELEZ Primary Care Unavailable ELISA FERRARO [...] Care Unavailable FAWWAToo, ASHTON H Admitting Unavailable FAWWAToo, ASHTON H Attending Unavailable BALL, DR ORDAZ Primary Care Unavailable FAWWAToo, ASHTON H Admitting Unavailable FAWWAD, ASHTON H Attending Unavailable BALL, DR ORDAZ Primary Care Unavailable SEAN AVILA Admitting Unavailable SEAN AVILA Attending Unavailable CLOVIS, DR ORDAZ Primary Care Unavailable CL VARNER, DR JULIANA Pride Admitting Unavailabl e CL VARNER, DR JULIANA Pride Attending Unavailabl e CLOVIS, DR ORDAZ Primary Care Unavailable CL VARENR, DR JULIANA Pride Consulting Unavailabl e CLOVIS, DR ORDAZ Admitting Unavailable CLOVIS, DR ORDAZ Attending Unavailable CLOVIS, DR ORDAZ Primary Care Unavailable CLOVIS, DR ORDAZ Consulting Unavailable CLOVIS, DR ORDAZ Admitting Unavailable CLOVIS, DR ORDAZ Attending Unavailable CLOVIS, DR ORDAZ Primary Care Unavailable CLOVIS, DR ORDAZ Consulting Unavailable BLU VELEZ Primary Care Physician Clarisa Ibarra Attending Unavailable Clarisa Ibarra Attending Unavailable Blu Velez Unavailable Blu Velez Unavailable Unavailable Unavailable Teo Johnson Attending Unavailable Clovis, Dr. Blu Torres Primary Care Angelia Velez, Dr. Blu Torres Referring Angelia cantorBlu Gasca DO Primary Care Provider Blu Velez DO Primary Care Provider U navailable DO Blu Velez Primary Care Provider MD Yogesh Jacob II Attending Provider Blu Velez MD Primary Care Provider Blu Velez DO Primary Care Provider TEO JOHNSON Referring Unavailable BLU VELEZ Primary Care Unavailable TEO JOHNSON Referring Unavailable BLU VELEZ Primary Care Unavailable Blu Velez DO Primary Care Provider Teo Johnson MD Attending Provider [phone] Teo Johnson Admitting Unavailable Teo Johnson Attending Unavailable Blu Velez Primary Care Unavailable Blu Velez Primary Care Unavailable Yogesh Jacob II Admitting UnavailYogesh Reyes II Attending Unavailabl e Teo Johnson Admitting Unavailable Teo Johnson Attending Unavailable Blu Velez Primary Care Unavailable TEO JOHNSON Attending Unavailable TEO JOHNSON Referring Unavailable BLU VELEZ Primary Care Unavailable TEO JOHNSON Attending Unavailable BLU VELEZ Primary Care Unavailable Blu Velez DO Primary Care Provider ASHUTOSH MILLER Attending Unavailable ASHUTOSH MILLER Attending Unavailable LEAH SANFODR Attending Unavailable ASHUTOSH MILLER Attending Unavailable ASHUTOSH MILLER Attending Unavailable ASHUTOSH MILLER Attending Unavailable Allergies Allergy Classification Reported Allergen(s) Allergy Type Date of Onset Reaction(s) Facility Sulfamethoxazole / Trimethoprim (3 sources) Sulfamethoxazole / Trimethoprim Drug Allergy Rash [facility] Unclassified (9 sources) Iodides; Translations: [IODIDES] Propensity to adverse reactions to drug Hives, Itching [facility] (10 sources) Contrast media; Translations: [CONTRAST DYE] Propensity to adverse reactions to drug (disorder) 011 AOF, Unknown [facility] Repository (9 sources) sulfamethoxazole / trimethoprim; Translations: [SULFAMETHOXAZOLE-T RIMETHOPRIM] Drug Allergy 016 Hives, Rash [facility] Repository (1 source) Iodine (And Iodine Containting Drugs) Drug allergy (disorder) [facility] (1 source) Sulfamethoxazole / Trimethoprim Drug Allergy 015 [facility] (10 sources) Sulfamethoxazole / Trimethoprim Drug Allergy 015 Unknown [facility] (20 sources) Iodine; Translations: [iodine] Drug Allergy Unknown (qualifier value), Unknown [facility] (2 sources) Sulfonamides (Antibiotic); Translations: [sulfa drugs] Drug allergy Unknown (qualifier value) [facility] (11 sources) Sulfamethoxazole / Trimethoprim; Translations: [Bactrim] Drug Allergy Unknown, Rash [facility] Other (19 sources) Simvastatin Drug Allergy 024 Unknown, Unknown Reaction, [facility] (8 sources) Allergies Reconciled Propensity to adverse reactions Unknown [facility] Other (20 sources) Iodinated contrast media (substance) Drug allergy 011 Hives, Itching [facility] (17 sources) Substance with sulfonamide structure and antibacterial mechanism of action (substance) Drug allergy 024 Hives, Unknown [facility] Other (8 sources) Septra *ANTI-INFECTIVE AGENTS - MISC.* Propensity to adverse reactions Unknown [facility] Other (8 sources) Sulf-10 Drug allergy 014 Unknown [facility] Other (8 sources) patient allergy list reviewed by nurse or physicia Propensity to adverse reactions Comment:Done [facility] Other (2 sources) Contrast media Allergy to substance (finding) Rash [facility] 250 DO Work Phone: (13 sources) Sulfamethoxazole; Translations: [SULFAMETHOXAZOLE] Drug Allergy Hives [facility] (12 sources) Sulfonamides (Antibiotic); Translations: [Sulfa (Sulfonamide Antibiotics)] Allergy to substance Unknown Reaction, [facility] (12 sources) Trimethoprim; Translations: [trimethoprim] Drug Allergy Unknown Reaction, [facility] (14 sources) Iodinated Cont[employer] Media; Translations: [IODINATED CONTRAST MEDIA] Allergy to substance Unknown Reaction, Rash, itching [facility] (1 source) Iodine Drug Allergy [facility] (1 source) Simvastatin Drug Allergy [facility] Rep[facility] Medications Current Medications Medication Drug Class(es) [...] (PERCOCET) 5-325 MG per tablet 1 tablet albuterol 0.83 mg/ml inhalation solution (20 sources) beta2-Adrenergic Agonist Start: 05-03-2023 take 2 puff(s) by mouth every six hours as needed for cough and wheezing Albuterol Sulfate 90 mcg/actuation HFA aerosol inhaler Active 0 .ROUTE .COMPLEX 8.5 May 03, 2023 9:50am INHALE 2 PUFFS BY MOUTH EVERY 6 HOURS NEEDED FOR COUGH AND WHEEZING Start: 04-19-2023 End: 05-10-2023 take 2.5 mg by inhalation every six hours as needed for wheezing Albuterol Sulfate 2.5 mg /3 mL (0.083 %) solution for nebulization Discontinued 2.5 MG INHALATION Every 6 hours as needed for shortness of breath or wheezing 75 30 April 19, 2023 3:32pm May 10, 2023 9:15am Start: 04-11-2023 End: 05-03-2023 take 1 puff(s) by inhalation every six hours as needed for cough and wheezing Albuterol Sulfate 90 mcg/actuation HFA aerosol inhaler Discontinued 2 PUFF INHALATION Every 6 hours as needed for cough and wheezing 8.5 April 11, 2023 1:00am May 03, 2023 9:50am amLODIPine 5 mg oral tablet (20 sources) Dihydropyridine Calcium Channel Nuha Start: 2022 End: 01-02-2024 amLODIPine (Norvasc) 5 MG tablet 02/09/2023 Active ascorbic acid 1000 mg oral capsule (20 sources) Vitamin C Start: 05-05-2024 take 1 g by mouth once daily Ascorbic Acid (Vitamin C) 1,000 mg capsule Active 1 GM PO Daily May 05, 2024 12:00am Start: 05-05-2024 take 1 g by mouth once daily A scorbic Acid (Vitamin C) 1,000 mg capsule Active 1 GM PO Daily May 05, 2024 12:00am take 1 tablet by gina th in the morning Ascorbic Acid (vitamin C) 1000 MG tablet Take 1,000 mg by mouth in the morning. Active Vitamin C ER 100 0 MG TBCR TAKE 1 TABLET DAILY. Quantity: 0 Refills: 0 Ordered: 09-Nov-2022 DO Active aspirin 81 mg delayed release oral tablet (20 sources) Platelet Aggregation Inhibitor, Nonsteroidal Anti-inflammatory Drug Start: 04-11-2023 take 1 tablet by mouth once daily Aspirin 81 mg tablet,delayed release (DR/EC) Active 81 MG PO Daily April 11, 2023 1:00am CALCIUM-MAGNES IUM-ZINC ORAL (4 sources) End: 07-02-2024 take 1 tablet by mouth in the morning [id number] INC ORAL Take 1 tablet by mouth early in the morning.. 07/02/2024 Discontinued (Med List Cleanup) take 1 tablet by gina th in the morning [id number] ORAL Take 1 table t by mouth early in the morning.. Active cholecalciferol 0.025 mg oral capsule (9 sources) Vitamin D Start: 05-02-2024 take 1 capsule by mouth once daily Cholecalciferol (Vitamin D3) (Vitamin D3) 25 mcg (1,000 unit) capsule Active 1000 UNIT PO Daily May 02, 2024 1:00am Start: 06-16-2020 cholecalcifero l (Vitamin D-3) 25 MCG (1000 UT) tablet Take 1 tablet (25 mcg) by mouth. 06/16/2020 Active Vitamin D-3 25 M CG (1000 UT) Oral Capsule TAKE DIRECTED. Quantity: 0 Refills: 0 Ordered: 09-Nov-2022 DO Active diphenhydrAMINE hydrochloride 25 mg oral capsule (4 sources) Histamine-1 Receptor Antagonist Start: 05-02-2024 Diphenhydramine Hcl 25 mg capsule Active 25 MG PO As Directed May 02, 2024 1:00am Start: 04-30-2024 End: 07-02-2024 take 1 tablet by mouth three times daily diphenhydrAMINE (Benadryl Allergy) 25 mg tablet Indications: Allergy to iodinated contrast Take 1 tablet (25 mg) by mouth see administration instructions for 6 doses. 1 tablet by mouth three times a day with last dose being morning of procedure. 6 tablet 04/30/2024 07/02/2024 Discontinued (Med List Cleanup) docusate sodium 100 mg oral capsule (1 source) Start: 08-10-2020 docusate sodiu m (COLACE) capsule 100 mg 0.8 ml enoxaparin sodium 100 mg/ml prefilled [...] 0 08/09/2020 Discontinued (Stop Taking at Discharge) famotidine 40 mg oral tablet (4 sources) Histamine-2 Receptor Antagonist Start: 04-30-2024 End: 07-02-2024 Famotidine 40 mg tablet Active 40 MG PO As Directed May 02, 2024 1:00am fluocinonide 0.5 mg/ml topical cream (3 sources) Corticosteroid fluocinonide (LI DEX) 0.05 % cream Apply topically as needed (for occasional rash on lower legs) Uses very rarely 0 Active Fluticasone Propion-Salmeterol (17 sources) Corticosteroid, beta2-Adrenergic Agonist Start: 07-17-2023 Fluticasone Propion-Salmeterol (Wixela Inhub) 250-50 mcg/dose blister with device Active 1 INH INHALATION Twice daily as needed for shortness of breath or wheezing July 17, 2023 12:00am Start: 07-17-2023 Fluticasone Pr opion-Salmeterol (Wixela Inhub) 250-50 mcg/dose blister with device [...] 24May 10, 2023 12:00am administer with spacer HYDROmorphone (DILAUDID) injection 0.25 mg (1 source) Start: 08-21-2020 HYDROmorphone (DILAUDID) injection 0.25 mg 100 ml magnesium sulfate 10 mg/ml injection (1 source) Start: 08-21-2020 magnesium sulf ate 1000 mg in dextrose 5% 100 mL IVPB morphine (PF) injection 2 mg (1 source) Start: 08-09-2020 morphine (PF) injection 2 mg ondansetron (ZOFRAN-ODT) disintegrating tablet 4 mg (1 source) Start: 08-21-2020 ondansetron (ZOFRAN-ODT) disintegrating tablet 4 mg oxyCODONE (1 source) Opioid Agonist Start: 08-09-2020 oxyCODONE (NELSON ICODONE) immediate release tablet 5 mg polyethylene glycol 3350 [id number] mg powder for oral solution (1 source) Osmotic Laxative Start: 08-21-2020 polyethylene glycol (GLYCOLAX) packet 17 g Potassium Chloride (1 source) Start: 08-21-2020 potassium chlo ride (KLOR-CON M) extended release tablet 40 mEq Promethazine (1 source) Phenothiazine Start: 08-09-2020 promethazine (PHENERGAN) tablet 12.5 mg rosuvastatin calcium 20 mg oral tablet (4 sources) HMG-CoA Reductase Inhibitor Start: 07-02-2024 End: 07-02-2025 rosuvastatin (Crestor) 20 MG tablet Take 20 mg by mouth 07/02/2024 Active traMADol hydrochloride 50 mg oral tablet (15 sources) Opioid Agonist Start: 05-02-2024 Tramadol 50 mg tablet Active 25 MG PO Daily as needed for pain May 02, 2024 1:00am Start: 03-30-2016 take 1 tablet by gina every six hours traMADol HCl 50 MG 1 tablet as needed Orally every 6 hrs for 30 days Mar, Not-Taking End: 08-09-2020 take 1 tablet by mouth every twelve hours as needed for pain traMADol (ULTRAM) 50 MG tablet Take 50 mg by mouth every 12 hours as needed for Pain. 0 08/09/2020 Discontinued (Stop Taking at Discharge) triamcinolone acetonide 5 mg/ml topical cream (17 sources) Corticosteroid Start: 05-02-2024 Triamcinolone Acetonide 0.5 % cream Active 1 APPLIC TOPICAL Twice daily as needed for skin irritation May 02, 2024 1:00am Start: 11-20-2023 End: 05-02-2024 Triamcinolone Acetonide 0.5 % cream Discontinued 1 APPLIC TOPICAL Twice daily 15 November 20, 2023 12:00am May 02, 2024 11:51am Start: 11-20-2023 Triamcinolone Acetonide Active 1 APPLIC TOPICAL Twice daily 15 November 20, 2023 12:00am Start: 2017 Kenalog -40 mg Dec, 40 mg vitamin b12 1 mg oral tablet (9 sources) Vitamin B12 Start: 05-02-2024 take 1 tablet by mouth once daily Cyanocobalamin (Vitamin B-12) (Vitamin B-12) 1,000 mcg tablet Active 1000 MCG PO Daily May 02, 2024 1:00am warfarin sodium 2 mg oral tablet (5 [...] Drug Class(es) Dates Sig (Normalized) Sig (Original) acyclovir 0.05 mg/mg topical ointment (8 sources) Herpesvirus Nucleoside Analog DNA Polymerase Inhibitor, Herpes Simplex Virus Nucleoside Analog DNA Polymerase Inhibitor, Herpes Zoster Virus Nucleoside Analog DNA Polymerase Inhibitor Start: 08-10-2023 End: 01-02-2024 Acyclovir 5 % ointment Discontinued 1 APPLIC TOPICAL Six times daily 09 09August 10, 2023 12:00am January 02, 2024 11:42am apixaban 2.5 mg oral tablet (20 sources) Factor Xa Inhibitor Start: 04-11-2023 End: 11-20-2023 take 1 mg by mouth twice daily Apixaban Discontinued MG PO Twice daily April 11, 2023 1:00am November 20, 2023 1:51pm FreeTextSig: as directed Orally Twice a day; Note: Source Status: Continue; Provider: Clovis Hylton Start: 12-02-2020 End: 11-20-2023 apixaban (Eliquis) 2.5 MG ta blet 2.5 mg 01/03/2023 Active Start: 08-22-2020 End: 09-21-2020 take 1 tablet by mouth twice daily apixaban (ELIQUIS) 5 MG TABS tablet Take 1 tablet by mouth 2 times daily 60 tablet 0 08/22/2020 08/22/2020 Discontinued (REORDER) atorvastatin 10 mg oral tablet (20 sources) HMG-CoA Reductase Inhibitor Start: 08-04-2023 End: 11-02-2023 Atorvastatin 10 mg tablet Discontinued 0 .ROUTE .COMPLEX August 04, 2023 12:52pm November 02, 2023 4:28pm TAKE 1 TABLET EVERY EVENING Start: 04-11-2023 End: 07-11-2024 take 1 tablet by mouth once daily in the evening Atorvastatin 10 mg tablet Discontinued 10 MG PO Every evening November 02, 2023 4:27pm July 11, 2024 12:54pm Start: 10-24-2018 atorvastatin O ral, Daily, Refills(s) 0 Start Date: 10/24/18 Status: Ordered azithromycin 250 mg oral tablet (9 sources) Macrolide Antimicrobial Start: 05-10-2023 End: 11-20-2023 Azithromycin 250 mg tablet Discontinued 250 MG PO As Directed 6 May 10, 2023 12:00am November 20, 2023 1:51pm benazepril hydrochloride 20 mg oral tablet (20 sources) Angiotensin Converting Enzyme Inhibitor Start: 04-11-2023 End: 05-02-2024 take 1 tablet by mouth once daily Benazepril 20 mg tablet Discontinued 20 MG PO Daily January 02, 2024 11:44am May 02, 2024 11:51am Start: 10-24-2018 benazepril Ora l, Daily, Refills(s) 0 Start Date: 10/24/18 Status: Ordered Nyl-Obe-Vsmw 333-133-5 MG TA BS (2 sources) Nby-Dqa-Raeu 333 -133-5 MG TABS TAKE 1 TABLET DAILY. Quantity: 0 Refills: 0 Ordered: 09-Nov-2022 DO Active calcium chloride 0.0014 meq/ ml / potassium chloride 0.004 meq/ml / sodium chloride 0.103 meq/ml / sodium lactate 0.028 meq/ml injectable solution (2 sources) Start: 08-09-2020 End: 08-10-2020 Intravenous, at 125 mL/hr, CONTINUOUS, Starting on Sun08/09/20 at 2130, Post-op Start: 08-09-2020 lactated ringe rs infusion doxycycline hyclate 100 mg oral capsule (15 sources) Tetracycline-class Drug Start: 11-20-2023 End: 05-02-2024 take 1 capsule by mouth twice daily Doxycycline Hyclate 100 mg capsule Discontinued 100 MG PO Twice daily 08 09November 20, 2023 12:00am May 02, 2024 11:48am Start: 04-11-2023 End: 04-19-2023 take 1 capsule by mouth twice daily Doxycycline Hyclate 100 mg capsule Discontinued 100 MG PO Twice daily April 11, 2023 1:00am April 19, 2023 11:14am 2 ml fentaNYL 0.05 mg/ml injection (2 sources) Opioid Agonist Start: 08-09-2020 End: 08-09-2020 fentaNYL (SUBLIMAZE) injection 50 mcg Start: 08-09-2020 End: 08-09-2020 fentaNYL (SUBLIMAZE) injecti on 25 mcg gabapentin 300 mg oral capsule (1 source) Anti-epileptic Agent Start: 08-09-2020 End: 08-09-2020 gabapentin (NEURONTIN) capsule 300 mg hydroCHLOROthiazide 12.5 mg oral tablet (20 sources) Thiazide Diuretic Start: 08-30-2022 take 1 mg by mouth once daily hydrochlorothiazide 12.5 mg Cap mg cap(s), Oral, Daily Start Date: 08/30/22 Status: Ordered Start: 03-01-2022 End: 05-02-2024 take 1 tablet by mouth in the morning hydroCHLOROthiazide (HYDRODiuril) 12.5 MG tablet Take 1 tablet by mouth in the morning. 06/28/2022 Active levoFLOXacin 750 mg oral tablet (9 sources) Quinolone Antimicrobial Start: 04-19-2023 End: 05-10-2023 take 1 tablet by mouth once daily Levofloxacin 750 mg tablet Discontinued 750 MG PO Daily 5 April 19, 2023 1:00am May 10, 2023 8:37am mineral oil 0.15 mg/mg / petrolatum 0.83 mg/mg ophthalmic ointment (1 source) Start: 08-09-2020 End: 08-10-2020 lubrifresh P.M. (artificial tears) ophthalmic ointment predniSONE 20 mg oral tablet (20 sources) Start: 04-30-2024 End: 08-04-2024 Prednisone 20 mg tablet Discontinued 20 MG PO As Directed May 02, 2024 1:00am August 04, 2024 1:32pm Start: 05-10-2023 End: 05-10-2023 Prednisone 20 mg tablet Disc ontinued 20 MG PO Twice daily 10 May 10, 2023 12:00am May 10, 2023 12:39pm 1 tab tid w/ food x 3 days, then bid w/ food x 3 days, then qd w/ food x 3 days Start: 04-19-2023 End: 11-20-2023 take 1 tablet by mouth twice daily Prednisone 20 mg tablet Discontinued 20 MG PO Twice daily 10 May 10, 2023 12:38pm November 20, 2023 1:52pm [...] 2106 After every IV line use Post-op Problems Active Problems Problem Classification Problem Date Documented Date Episodic/Chronic Acute bronchitis (19 sources) Acute bronchitis; Translations: [Acute bronchitis due to other specified organisms] Onset: 4 04-11-2023 Episodic Acute cerebrovascular disease (20 sources) Embolic stroke; 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 Acute posthemorrhagic anemia (2 sources) Anemia [...] 0 04-11-2023 Chronic Coagulation and hemorrhagic disorders (4 sources) Hypercoagulability state; 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 Complication of device; implant or graft (11 sources) Pain due to knee joint prosthesis; Translations: [Pain due to internal orthopedic prosthetic devices, implants and grafts, initial encounter] Onset: 4 09-12-2023 Episodic Coronary atherosclerosis and other heart disease (5 sources) Coronary arteriosclerosis; Translations: [Atherosclerotic heart disease of grindstone coronary artery without angina pectoris] Onset: 5 07-02-2024 Chronic Disorders of lipid metabolism (20 sources) Familial [...] communicable diseases; Translations: [Vaccination given] Episodic Mycoses (7 sources) Pain in toe; Translations: [Tinea unguium] 12-10-2023 Episodic Neoplasms of unspecified nature or uncertain behavior (10 sources) Neoplasm of uncertain behavior of skin; Translations: [Neoplasm of uncertain behavior of skin] Onset: 6 08-18-2024 Episodic Occlusion or stenosis of precerebral arteries [...] sources) Long-term current use of anticoagulant; Translations: [correction (current) use of anticoagulants] Onset: 1 Episodic Other aftercare (2 sources) correction (current) use of anticoagulants; Translations: [Long-term (current) use of anticoagulants] Onset: 2 08-04-2024 Episodic Other aftercare (8 sources) Long-term current use of drug therapy; Translations: [Other correction (current) drug therapy] Episodic Other aftercare (6 sources) Taking high risk medication; Translations: [Other retail sales representative (current) drug therapy] Onset: 4 03-26-2024 Episodic Other aftercare (1 source) Anticoagulant effect; Translations: [geological technical officer (current) use of anticoagulants] 08-04-2024 Episodic Other and ill-defined cerebrovascular disease (19 sources) Cerebral atherosclerosis; Translations: [Cerebral atherosclerosis] 04-11-2023 Chronic Other and ill-defined cerebrovascular disease (10 sources) Cerebral atherosclerosis; Translations: [Cerebral atherosclerosis] Chronic Other and unspecified benign neoplasm (7 sources) Polyp of colon; Translations: [Polyp of colon] Episodic Other and unspecified benign neoplasm (1 source) Polyp of colon; Translations: [Polyp of colon] Episodic Other circulatory disease (19 sources) History of cerebrovascular disease; Translations: [Personal history of transient ischemic attack (TIA), and cerebral infarction without residual deficits] 04-11-2023 Episodic Other circulatory disease (10 sources) Personal history of transient ischemic attack [...] Translations: [Pain in limb] 11-20-2023 Episodic Other connective tissue disease (1 source) Suspected respiratory disease; Translations: [Other symptoms and signs involving the nervous system] 08-04-2024 Episodic Other connective tissue disease (1 source) Other symptoms and signs involving the nervous system; Translations: [Other symptoms involving nervous and musculoskeletal systems] 08-04-2024 Episodic Other ear and sense organ disorders [...] Episodic Other nutritional; endocrine; and metabolic disorders (10 sources) Overweight; Translations: [Overweight] 03-26-2024 Episodic Other nutritional; endocrine; and metabolic disorders (8 sources) Overweight in adulthood with body mass index of 25 or more but less than 30; Translations: [Overweight] Onset: 5 03-26-2024 Episodic Other nutritional; endocrine; and metabolic disorders (1 source) Overweight; Translations: [Overweight] 08-04-2024 Episodic Other screening for suspected conditions (not mental disorders or infectious disease) (20 sources) Raised prostate specific antigen; Translations: [Elevated prostate specific antigen (PSA)] Onset: 4 10-23-2018 Episodic Comment on above: PSA: 0.74 - 01/2023, 0.75 - 01/2024 Other skin disorders (2 sources) Asteatosis cutis; Translations: [Xerosis cutis] 02-14-2024 Episodic Other upper respiratory disease (8 sources) [...] [Hypertensive retinopathy, unspecified eye] Onset: 2 Chronic Skin and subcutaneous tissue infections (5 sources) Paronychia; Translations: [Paronychia] 11-20-2023 Episodic Spondylosis; [...] [Other malaise and fatigue] Onset: 09-23-2013 Episodic Other aftercare (4 sources) Other correction (current) drug therapy; Translations: [OTH REFRIGERATOR CABINETMAKER CURRENT DRUG THERAPY] Onset: 01-26-2022 Episodic Other aftercare (5 sources) Encounter for therapeutic drug level monitoring; Translations: [ENC THERAPEUTC DRUG LEVL MONITORING] Onset: 01-23-2017 Episodic Other aftercare (7 sources) Therapeutic drug [...] Onset: 01-16-2016 Episodic Other lower respiratory disease (18 sources) Dyspnea; Translations: [Other forms of dyspnea] Onset: 05-08-2017 03-26-2024 Episodic Other lower respiratory disease (1 source) Other forms of dyspnea; Translations: [Other forms of dyspnea] Onset: 05-08-2017 Episodic Other lower respiratory disease (5 sources) Shortness of breath; Translations: [Shortness of breath] Onset: 03-26-2024 Episodic Other non-traumatic joint disorders (7 sources) Arthralgia of the lower leg; Translations: [Pain in joint, lower leg] Onset: 12-10-2014 Episodic Other nutritional; endocrine; and metabolic disorders (16 sources) Body mass index 25-29 - overweight; Translations: [Body mass index 28.0-28.9, adult] Onset: 01-23-2017 Episodic Other nutritional; endocrine; and metabolic disorders (2 sources) Body mass index (BMI) 27.0-27.9, adult; Translations: [Body mass index (BMI) 27.0-27.9, adult] Onset: 03-26-2024 Episodic Residual codes; unclassified (8 sources) Requires [...] neoplasm of digestive organs] Onset: 09-23-2013 Episodic Screening and history of mental health and substance abuse codes (20 sources) Ex-smoker; Translations: [History of tobacco use] Onset: 01-23-2017 11-27-2019 Episodic Comment on above: quit 1965; Spondylosis; intervertebral disc disorders; other back problems [...] thrombosis of other specified veins] Onset: 12-25-2013 Unclassified (4 sources) Onset: 03-26-2024 03-26-2024 Results Test Name Value Interpretation Reference [facility] No Panel Informationon 08-18 Type of biopsy: watson ential Informed consent: discussed and consent obtained Informed [...] taken Amount of lidocaine used: 0.4 cc [facility] Basophils Auto (Bld) [#/Vol] Ordered By: Teo Johnson on 05-02-2024 Basophils (Bld) [#/Vol] Automated basophil count 0.0-0.2 [facility] Basophils/100 WBC Auto (Bld) Ordered By: Teo Johnson on 05-02-2024 Basophils/100 WBC (Bld) Automated basophil % . [facility] Blood Urea Nitrogenon 2024 Urea nitrogen [Mass/Vol] 24 mg/dL Normal 7-25 [facility] Comment on above: Performed By: #### C REAT, LIPID, CBC, PP, LYTES, BUN #### [facility] [address] Carbon dioxide, total [Moles /volume] in Serum or PlasmaOrdered By: Teo Johnson on 05-02-2024 CO2 [Moles/Vol] Carbon dioxide, tota l [Moles/volume] in Serum or Plasma 21.0-31.0 [facility] Chloride [Moles/volume] in S shant or PlasmaOrdered By: Teo Johnson on 05-02-2024 Chloride [Moles/Vol] Chloride [Moles/vol ume] in Serum or Plasma 98-107 [facility] Cholesterol [Mass/volume] in Serum or PlasmaOrdered By: Teo Johnson on 05-02-2024 Cholesterol [Mass/Vol] Cholesterol [Mass/volume] in Serum or Plasma 140-200 [facility] Comment on above: Chol less than 200 m g/dl low riskChol 201-239 mg/dl borderline riskChol 240 mg/dl and greater high risk Cholesterol in HDL [Mass/vol ume] in Serum or PlasmaOrdered By: Teo Johnson on 05-02-2024 Cholesterol in HDL [Mass/Vol] Serum or plasma high density lipoprotein (HDL) cholesterol measurement 23-92 [facility] Comment on above: HDL CHOL ATP-III CLA SSIFICATION Cardiovascular RiskHDL > or equal to 60 mg/dL LOWHDL < 40 mg/dL HIGH Cholesterol in LDL Calc [Mas s/Vol]Ordered By: Teo Johnson on 05-02-2024 Cholesterol in LDL [Mass/Vol] Cholesterol in LDL [Mass/volume] in Serum or Plasma by calculation High 0-100 [facility] Comment on above: LDL ATP III CLASSIFI CATIONLDL less than 100 mg/dL OptimalLDL 100-129 mg/dL Near or above optimalLDL 130-159 mg/dL Borderline highLDL 160-189 mg/dL HighLDL greater than 189 mg/dL Very high Cholesterol in VLDL Calc [Ma ss/Vol]Ordered By: Teo Johnson on 05-02-2024 Cholesterol in VLDL [Mass/Vol] Cholesterol in VLDL [Mass/volume] in Serum or Plasma by calculation [facility] Coagulation Profileon 2024 aPTT Coag (Bld) [Time] 29.9 s Normal 25.1-36.5 [facility] Comment on above: Result Comment: A he matocrit value greater than 55% may lead to inaccurate results in coagulation testing. Patients having hematocrit values >55% require a special collection tube for coagulation studies. Please contact the laboratory at [phone] for redraw instructions. PERFORMED BY: [place] [address] PATHOLOGIST HOUSEKEEPER/LAUNDRY ASSISTANT BONNIE QUINTANILLA M.D. Performed By: #### C BC, CRP, DDIMER, ESR #### [address] INR Coag (PPP) [Relative time] 1.1 {INR} Normal [facility] Comment on above: Result Comment: INR Therapeutic Range A) Pre- and Peroperative OAT started two weeks before surgery. NOT HIP SURGERY: 1.5 - 2.5 HIP SURGERY: 2 - 3 B) Primary and secondary prevention of venous THROMBOSIS: 2 - 3 C) Active venous thrombosis, pulmonary embolism and prevention of recurrent venous thrombosis: 2 - 3 D) Prevention of arterial thromboembolism including patients with mechanical heart valves: 3 - 4.5 Performed By: #### C BC, CRP, DDIMER, ESR #### [place] [id number] [facility] PT Coag (PPP) [Time] 12.6 s Normal 9.0-12.9 [facility] Comment on above: Result Comment: A he matocrit value greater than 55% may lead to inaccurate results in coagulation testing. Patients having hematocrit values >55% require a special collection tube for coagulation studies. Please contact the laboratory at [phone] for redraw instructions. Performed By: #### C BC, CRP, DDIMER, ESR #### [address] Complete Blood Count Auto Di ffon 05-02-2024 Basophils (Bld) [#/Vol] 0.1 10*3/uL Normal 0.0-0.2 [facility] Comment on above: Result Comment: PERF ORMED BY: [place] [address] PATHOLOGIST HOUSEKEEPER/LAUNDRY ASSISTANT BONNIE QUINTANILLA M.D. Performed By: #### C REAT, LIPID, CBC, PP, LYTES, BUN #### [address] Basophils/100 WBC (Bld) 1.3 % Normal . [facility] Comment on above: Performed By: #### C REAT, LIPID, CBC, PP, LYTES, BUN #### [address] Eosinophils (Bld) [#/Vol] 0.4 10*3/uL Normal 0.0-0.45 [facility] Comment on above: Performed By: #### C REAT, LIPID, CBC, PP, LYTES, BUN #### [address] Eosinophils/100 WBC (Bld) 7.9 % Normal . [facility] Comment on above: Performed By: #### C REAT, LIPID, CBC, PP, LYTES, BUN #### [address] Erythrocyte distribution width (RBC) [Ratio] 12.8 % Normal 12.0-14.8 [facility] Comment on above: Performed By: #### C REAT, LIPID, CBC, PP, LYTES, BUN #### [address] Hematocrit (Bld) [Volume fraction] 41.6 % Normal 38.8-50.0 [facility] Comment on above: Performed By: #### C REAT, LIPID, CBC, PP, LYTES, BUN #### [address] Hemoglobin (Bld) [Mass/Vol] 14.7 g/dL Normal 13.0-17.0 [facility] Comment on above: Performed By: #### C REAT, LIPID, CBC, PP, LYTES, BUN #### [address] Lymphocytes (Bld) [#/Vol] 1.7 10*3/uL Normal 1.00-4.8 [facility] Comment on above: Performed By: #### C REAT, LIPID, CBC, PP, LYTES, BUN #### [address] Lymphocytes/100 WBC (Bld) 32.7 % Normal . [facility] Comment on above: Performed By: #### C REAT, LIPID, CBC, PP, LYTES, BUN #### [address] MCH (RBC) [Entitic mass] 33.0 pg Normal 27.5-35.2 [facility] Comment on above: Performed By: #### C REAT, LIPID, CBC, PP, LYTES, BUN #### [address] MCV (RBC) [Entitic vol] 93.7 fL Normal 83.5-101 [facility] Comment on above: Performed By: #### C REAT, LIPID, CBC, PP, LYTES, BUN #### [address] Mean Corpuscular HGB Conc 35.3 g/dL Normal 32.5-35.6 [facility] Comment on above: Performed By: #### C REAT, LIPID, CBC, PP, LYTES, BUN #### [address] Monocytes (Bld) [#/Vol] 0.6 10*3/uL Normal 0.0-0.8 [facility] Comment on above: Performed By: #### C REAT, LIPID, CBC, PP, LYTES, BUN #### [address] Monocytes/100 WBC (Bld) 12.0 % Normal . [facility] Comment on above: Performed By: #### C REAT, LIPID, CBC, PP, LYTES, BUN #### [address] Neutrophils (Bld) [#/Vol] 2.4 10*3/uL Normal 1.8-7.7 [facility] Comment on above: Performed By: #### C REAT, LIPID, CBC, PP, LYTES, BUN #### [address] Neutrophils/100 WBC (Bld) 46.1 % Normal . [facility] Comment on above: Performed By: #### C REAT, LIPID, CBC, PP, LYTES, BUN #### [address] NRBC% 0.2 /100{WBC} Normal 0-0.5 [facility] Comment on above: Performed By: #### C REAT, LIPID, CBC, PP, LYTES, BUN #### [address] Platelet mean volume (Bld) [Entitic vol] 8.4 fL Normal 6.6-10.1 [facility] Comment on above: Performed By: #### C REAT, LIPID, CBC, PP, LYTES, BUN #### [place] [address] [place] Platelets (Bld) [#/Vol] 139 10*3/uL Low 150-450 [facility] Comment on above: Performed By: #### C REAT, LIPID, CBC, PP, LYTES, BUN #### [place] [address] [place] RBC (Bld) [#/Vol] 4.45 10*6/uL Normal 3.90-5.60 [facility] Comment on above: Performed By: #### C REAT, LIPID, CBC, PP, LYTES, BUN #### [facility] [address] WBC (Bld) [#/Vol] 5.3 10*3/uL Normal 4.1-10.5 [facility] Comment on above: Performed By: #### C REAT, LIPID, CBC, PP, LYTES, BUN #### [address] Creatinineon 05-02-2024 Creatinine [Mass/Vol] 1.04 mg/dL Normal 0.70-1.30 [facility] Comment on above: Performed By: #### C BC, CRP, DDIMER, ESR #### [address] GFR/1.73 sq M.predicted MDRD (S/P/Bld) [Vol rate/Area] mL/min/{1.73_m2} Normal [facility] Comment on above: Performed By: #### C BC, CRP, DDIMER, ESR #### [address] Creatinine [Mass/volume] in Serum or PlasmaOrdered By: Teo Johnson on 05-02-2024 Creatinine [Mass/Vol] Creatinine [Mass/v olume] in Serum or Plasma 0.70-1.30 [facility] ECG 12 lead ECGon 05-02-2024 ECG 12 lead ECG [facility] [place] [address] Electrocardiograph Report Signed Patient: Yanelis Noriega MR#: [id number] : 1945 Acct:[id number] Age/Sex: 79 / M ADM Date: 05/02/24 Loc: Room: Type: [facility] Attending Dr: Teo Johnson MD Ordering Provider: Teo Johnson MD, [facility] Date of Service: 05/02/2409/19/1006 ECG/ECG 12 lead [...] rhythm Normal ECG Confirmed by Brianna Martinez ([id number]) on 05/02/2024 9:12:37 PM Referred By: Electronically Signed By: Brianna Martinez Transcribed By: MUS Signed By Brianna Martinez MD 5 2 Normal [facility] Electrolyteson 05-02-2024 Anion gap [Moles/Vol] 6.0 mmol/L Normal 6.0-15.0 [facility] Comment on above: Performed By: #### C REAT, LIPID, CBC, PP, LYTES, BUN #### [address] Chloride [Moles/Vol] 106 mmol/L Normal 98-107 [facility] Comment on above: Performed By: #### C REAT, LIPID, CBC, PP, LYTES, BUN #### [address] CO2 [Moles/Vol] 29.5 mmol/L Normal 21.0-31.0 [facility] Comment on above: Performed By: #### C REAT, LIPID, CBC, PP, LYTES, BUN #### [address] Potassium [Moles/Vol] 4.5 mmol/L Normal 3.5-5.1 [facility] Comment on above: Performed By: #### C REAT, LIPID, CBC, PP, LYTES, BUN #### [address] Sodium [Moles/Vol] 137 mmol/L Normal 136-145 [facility] Comment on above: Performed By: #### C REAT, LIPID, CBC, PP, LYTES, BUN #### [address] [address] [facility] Eosinophils Auto (Bld) [#/Vo l]Ordered By: Teo Johnson on 05-02-2024 Eosinophils (Bld) [#/Vol] Automated eosinophil count 0.0-0.45 [facility] Eosinophils/100 WBC Auto (Bl d)Ordered By: Teo Johnson on 05-02-2024 Eosinophils/100 WBC (Bld) Automated eosinophil % . [facility] Erythrocyte distribution wid th Auto (RBC) [Ratio]Ordered By: Teo Johnson on 05-02-2024 Erythrocyte distribution width (RBC) [Ratio] Erythrocyte distribution width [Ratio] by Automated count 12.0-14.8 [facility] Hematocrit Auto (Bld) [Volum e fraction]Ordered By: Teo Johnson on 05-02-2024 Hematocrit (Bld) [Volume fraction] Hematocrit [Volume Fraction] of Blood by Automated count 38.8-50.0 [facility] Hemoglobin [Mass/volume] in BloodOrdered By: Teo Johnson on 05-02-2024 Hemoglobin (Bld) [Mass/Vol] Hemoglobin [Mass/volume] in Blood 13.0-17.0 [facility] INR in Platelet poor plasma by Coagulation assayOrdered By: Teo Johnson on 05-02-2024 INR Coag (PPP) [Relative time] INR in Platelet poor plasma by Coagulation assay [facility] Comment on above: INR Therapeutic Rang e A) Pre- and Peroperative OAT started two weeks before surgery. NOT HIP SURGERY: 1.5 - 2.5 HIP SURGERY: 2 - 3B) Primary and secondary prevention of venous THROMBOSIS: 2 - 3C) Active venous thrombosis, pulmonary embolismand prevention of recurrent venous thrombosis: 2 - 3D) Prevention of arterial thromboembolismincluding patients with mechanical heart valves: 3 - 4.5 Leukocytes [#/volume] correc jodee for nucleated erythrocytes in Blood by Automated counOrdered By: Teo Johnson on 05-02-2024 WBC corrected for nucl RBC Auto (Bld) [#/Vol] Leukocytes [#/volume] corrected for nucleated erythrocytes in Blood by Automated coun 4.1-10.5 [facility] Lipid Panelon 05-02-2024 Cholesterol [Mass/Vol] 190 mg/dL Normal 140-200 [facility] Comment on above: Result Comment: Chol less than 200 mg/dl low risk Chol 201-239 mg/dl borderline risk Chol 240 mg/dl and greater high risk Performed By: #### C BC, CRP, DDIMER, ESR #### [facility] [address] Cholesterol in HDL [Mass/Vol] 53 mg/dL Normal 23-92 [facility] Comment on above: Result Comment: HDL CHOL ATP-III CLASSIFICATION Cardiovascular Risk HDL > or equal to 60 mg/dL LOW HDL < 40 mg/dL HIGH Performed By: #### C BC, CRP, DDIMER, ESR #### [facility] [address] Cholesterol.total/Cho lesterol in HDL [Mass ratio] 3.6 {ratio} Normal <5.0 [facility] Comment on above: Result Comment: PERF ORMED BY: [place] [address] PATHOLOGIST HOUSEKEEPER/LAUNDRY ASSISTANT BONNIE QUINTANILLA M.D. Performed By: #### C BC, CRP, DDIMER, ESR #### [facility] [address] LDL Cholesterol,Calculate d 111 mg/dL High 0-100 [facility] Comment on above: Result Comment: LDL ATP III CLASSIFICATION LDL less than 100 mg/dL Optimal LDL 100-129 mg/dL Near or above optimal LDL 130-159 mg/dL Borderline high LDL 160-189 mg/dL High LDL greater than 189 mg/dL Very high Performed By: #### C BC, CRP, DDIMER, ESR #### [facility] [address] Triglyceride w/Reflex 130 mg/dL Normal 0-149 [facility] Comment on above: Result Comment: TRIG ATP III CLASSIFICATION TRIG less than 150 mg/dL Normal TRIG 150-199 mg/dL Borderline high TRIG 200-500 mg/dL High TRIG greater than 500 mg/dL Very high Standard traceable to the Center for Disease Conrtrol and Prevention (CDC) test method. Performed By: #### C BC, CRP, DDIMER, ESR #### [facility] [address] VLDL CHOLESTEROL 26 mg/dL Normal [facility] Comment on above: Performed By: #### C BC, CRP, DDIMER, ESR #### [facility] [address] Lymphocytes Auto (Bld) [#/Vo l]Ordered By: Teo Johnson on 05-02-2024 Lymphocytes (Bld) [#/Vol] Lymphocytes [#/volume] in Blood by Automated count 1.00-4.8 [facility] Lymphocytes/100 WBC Auto (Bl d)Ordered By: Teo Johnson on 05-02-2024 Lymphocytes/100 WBC (Bld) Lymphocytes/100 leukocytes in Blood by Automated count . [facility] MCH Auto (RBC) [Entitic mass ]Ordered By: Teo Johnson on 05-02-2024 MCH (RBC) [Entitic mass] MCH [Entitic mass] by Automated count 27.5-35.2 [facility] MCHC Auto (RBC) [Mass/Vol]Or dered By: Teo Johnson on 05-02-2024 MCHC (RBC) [Mass/Vol] MCHC [Mass/volume] by Automated count 32.5-35.6 [facility] MCV Auto (RBC) [Entitic vol] Ordered By: Toe Johnson on 05-02-2024 MCV (RBC) [Entitic vol] MCV [Entitic volume] by Automated count 83.5-101 [facility] Monocytes Auto (Bld) [#/Vol] Ordered By: Teo Johnson on 05-02-2024 Monocytes (Bld) [#/Vol] Automated blood monocyte count 0.0-0.8 [facility] Monocytes/100 WBC Auto (Bld) Ordered By: Teo Johnson on 05-02-2024 Monocytes/100 WBC (Bld) Automated monocyte % . [facility] Neutrophils Auto (Bld) [#/Vo l]Ordered By: Teo Johnson on 05-02-2024 Neutrophils (Bld) [#/Vol] Neutrophils [#/volume] in Blood by Automated count 1.8-7.7 [facility] Neutrophils/100 WBC Auto (Bl d)Ordered By: Teo Johnson on 05-02-2024 Neutrophils/100 WBC (Bld) Automated neutrophil % . [facility] No Panel InformationOrdered By: Teo Johnson on 05-02-2024 Estimated GFR (CKD-EPI) > 60.0 mL/Min [facility] Pharmacy Creatinine Clearance (Chem N/A [facility] Nucleated erythrocytes [Pres ence] in Blood by Automated countOrdered By: Teo Johnson on 05-02-2024 Nucleated RBC Auto Ql (Bld) Nucleated erythrocytes [Presence] in Blood by Automated count 0-0.5 [facility] Platelet mean volume Auto (B ld) [Entitic vol]Ordered By: Teo Johnson on 05-02-2024 Platelet mean volume (Bld) [Entitic vol] Platelet mean volume [Entitic volume] in Blood by Automated count 6.6-10.1 [facility] Platelets Auto (Bld) [#/Vol] Ordered By: Teo Johnson on 05-02-2024 Platelets (Bld) [#/Vol] Platelets [#/volume] in Blood by Automated count Low 150-450 [facility] Potassium [Moles/volume] in Serum or PlasmaOrdered By: Teo Johnson on 05-02-2024 Potassium [Moles/Vol] Potassium [Moles/v olume] in Serum or Plasma 3.5-5.1 [facility] Prothrombin time (PT)Ordered By: Teo Johnson on 05-02-2024 PT Coag (PPP) [Time] Prothrombin time (PT) 9.0- 12.9 [facility] Comment on above: A hematocrit value g reater than 55% may lead to inaccurate results in coagulation testing. Patients having hematocrit values >55% require a special collection tube for coagulation studies. Please contact the laboratory at [phone] for redraw instructions. RBC Auto (Bld) [#/Vol]Ordere d By: Teo Johnson on 05-02-2024 RBC (Bld) [#/Vol] Erythrocytes [#/volu me] in Blood by Automated count 3.90-5.60 [facility] Serum or plasma anion gap de terminationOrdered By: Teo Johnson on 05-02-2024 Anion gap [Moles/Vol] Serum or plasma an ion gap determination 6.0-15.0 [facility] Serum or plasma total choles terol/high density lipoprotein (HDL) cholesterol mass ratOrdered By: Teo Johnson on 05-02-2024 Cholesterol.total/Cho lesterol in HDL [Mass ratio] Serum or plasma total cholesterol/high density lipoprotein (HDL) cholesterol mass rat <5.0 [facility] Sodium [Moles/volume] in Ser um or PlasmaOrdered By: Teo Johnson on 05-02-2024 Sodium [Moles/Vol] Sodium [Moles/volume ] in Serum or Plasma 136-145 [facility] Triglyceride [Mass/volume] i n Serum or PlasmaOrdered By: Teo Johnson on 05-02-2024 Triglyceride [Mass/Vol] Triglyceride [Mass/volume] in Serum or Plasma 0-149 [facility] Comment on above: TRIG ATP III CLASSIF ICATIONTRIG less than 150 mg/dL NormalTRIG 150-199 mg/dL Borderline highTRIG 200-500 mg/dL High TRIG greater than 500 mg/dL Very highStandard traceable to the Center for Disease Conrtrol and Prevention (CDC) test method. Urea nitrogen [Mass/volume] in Serum or PlasmaOrdered By: Teo Johnson 05-02-2024 Urea nitrogen [Mass/Vol] Urea nitrogen [Mass/volume] in Serum or Plasma 7-25 [facility] WBC Auto (Bld) [#/Vol]Ordere d By: Teo Johnson on 05-02-2024 WBC (Bld) [#/Vol] Leukocytes [#/volume ] in Blood by Automated count 4.1-10.5 [facility] aPTT in Platelet poor plasma by Coagulation assayOrdered By: Teo Johnson 05-02-2024 aPTT Coag (PPP) [Time] Activated partial thromboplastin time (aPTT) in platelet poor plasma by coagulation a 25.1-36.5 [facility] Comment on above: A hematocrit value g reater than 55% may lead to inaccurate results in coagulation testing. Patients having hematocrit values >55% require a special collection tube for coagulation studies. Please contact the laboratory at [phone] CARDIAC SCORING WO IV CON TRASTon 04-29-2024 CT CARDIAC SCORING WO IV CONTRAST Interpreted By: Cipriano Dior, ADDENDUM: Technical: The [...] PM -------- ORIGINAL REPORT -------- Dictation workstation: [id number] Interpreted By: Cipriano Gutierrez, STUDY: CT CARDIAC SCORING WO IV CONTRAST; 04/29/2024 7:31 pm INDICATION: Signs/Symptoms:dyspnea. COMPARISON: None. ACCESSION NUMBER(S): [id number] ORDERING CLINICIAN: TEO JOHNSON TECHNIQUE: Using prospective ECG gating, CT scan [...] increased >800 Erma et al. JCCT 2016 (http://dx.doi.org/10.1016 /j.jcct.2016.11.003) [place] Percentile In general, greater than 75th [...] Calcification can be calcuate using link below https://www.monroe-nhlbi.org /MESACHDRisk/MesaRiskScore /RiskScore.aspx Yamila et al. JACC 2015 (http://dx.doi.org/10.1016 /j.j acc.2015.08.035) Reading Registered Nurse Cardiac Telemetry: Dr. Cipriano Gutierrez, Date: 04/29/2024 8:19 pm Signed by: Cipriano Gutiererz 04/29/2024 8:20 PM Dictation workstation: [id number] [facility] [place] CT for calcium scoring WO co ntrast and CTA W contrast IV Heart and coronary arterieson 04-29-2024 Addendum by Radha Daniel MD on 04/29/2024 8:25 PM EST Interpreted By: Cipriano Dior, ADDENDUM: Technical: The [...] PM -------- ORIGINAL REPORT -------- Dictation workstation: [id number] [facility] Work Phone: 1. Coronary artery c alcium score of 2306*. 2. [place] 88th percentile for age, gender, and race in asymptomatic patients. *Coronary Artery Agatston score Score risk Very low 1-99 Mildly increased 100-299 Moderately increased >300 Moderate to severely increased >800 Erma barclay al. JCCT 2016 (http://dx.doi.org/10.1016 /j.jcct.2016.11.003) [place] Percentile In general, greater than 75th [...] Calcification can be calcuate using link below https://www.monroe-nhlbi.org /MESACHDRisk/MesaRiskScore /RiskScore.aspx Yamila barclay al. JACC 2014 (http://dx.doi.org/10.1016 /j.j acc.2015.08.035) Reading Registered Nurse Cardiac Telemetry: Dr. Cipriano Gutierrez, Date: 04/29/2024 8:19 pm Signed by: Cipriano Gutierrez 04/29/2024 8:20 PM Dictation workstation: [id number] [facility] Interpreted By: Cipriano Landrum, STUDY: CT CARDIAC SCORING WO IV CONTRAST; 04/29/2024 7:31 pm INDICATION: Signs/Symptoms:dyspnea. COMPARISON: None. ACCESSION NUMBER(S): [id number] ORDERING CLINICIAN: TEO JOHNSON TECHNIQUE: Using prospective ECG gating, CT scan [...] left pulmonary artery are normal in size. [facility] C[facility] Gutierrez D O / Radha Dior MD - 04/29/2024 Interpreted By: Cipriano Gutierrez, STUDY: CT CARDIAC SCORING WO IV CONTRAST; 04/29/2024 7:31 pm INDICATION: Signs/Symptoms:dyspnea. COMPARISON: None. ACCESSION NUMBER(S): [id number] ORDERING CLINICIAN: TEO JOHNSON TECHNIQUE: Using prospective ECG gating, CT scan [...] increased >800 Erma et al. JCCT 2016 (http://dx.doi.org/10.1016 /j.jcct.2016.11.003) [place] Percentile In general, greater than 75th [...] Calcification can be calcuate using link below https://www.monroe-nhlbi.org /MESACHDRisk/MesaRiskScore /RiskScore.aspx Daksha. JACC 2015 (http://dx.doi.org/10.1016 /j.j acc.2015.08.035) Reading Registered Nurse Cardiac Telemetry: Dr. Cipriano Gutierrez, Date: 04/29/2024 8:19 pm Signed by: Cipriano Gutierrez 04/29/2024 8:20 PM Dictation workstation: [id number] [facility] Work Phone: Radiology Study observation (narrative) [facility] Work Phone: CT for calcium scoring WO co ntrast and CTA W contrast IV Heart and coronary arteriesOrdered By: Radha Dior on 04-29-2024 [facility] Work Phone: STRESS TEST ONLYon 5 STRESS TEST ONLY [address], [address] [place] [address] Exercise Stress Test Patient Name: YANELIS NORIEGA Ordering Provider: Jessa JOHNSON Study Date: 04/08/2024 Reading Physician: Jessa Johnson MD, [facility] MRN/PID: [id number] Supervising Physician: Jessa Johnson MD, [facility] Fellow: Date of /Age: 11 1945 Fellow: years Gender: M Nurse: Sveta Trinh RN Admission Status: Senior Business Consultant: NA Height: 170.18 cm Technologist: Weight: 82.10 kg Additional Staff: BSA: 1.94 m2 BMI: 28.35 kg/m2 Patient Location: Study Type: STRESS TEST ONLY Diagnosis/ICD: Shortness of breath-R06.02 Indication: Dyspnea CPT Codes: Stress Test Interpretation-16146; Stress Test Supervision-[id number] Falls Risk: Low: Patient has low risk [...] premature ventricular contractions. Stress Stage Data: + +---+--- ---+-------+ HR Sys BP Reeves BP + +---+--- ---+-------+ Baseline Resting 63 128 86 + +---+--- ---+-------+ Baseline Standing 62 122 82 + +---+--- ---+-------+ Stage I 93 144 76 + +---+--- ---+-------+ Stage II 117 168 74 + +---+--- ---+-------+ Recovery ECG: The heart rate recovery was normal. + +---+------+- ------+ HR Sys BP Reeves BP + +---+------+- ------+ Recovery I 117 172 72 + +---+------+- ------+ Recovery II 107 168 74 + +---+------+- ------+ Recovery III 75 128 78 + +---+------+- ------+ Recovery IV 69 126 82 + +---+------+- ------+ Summary: 1. 1_normal graded exercise tolerance test [...] age. 2. Adequate level of stress achieved. [id number] Teo Johnson MD, FACC Electronically signed on 04/09/2024 at 7:50:39 AM Final [facility] Basophils Auto (Bld) [#/Vol] on 02-09-2024 Basophils (Bld) [#/Vol] Automated basophil count 0.0-0.1 [facility] Basophils/100 WBC Auto (Bld) on 02-09-2024 Basophils/100 WBC (Bld) Automated basophil % 0.2-2.0 [facility] Cholesterol in LDL Calc [Mas s/Vol]on 02-09-2024 Cholesterol in LDL [Mass/Vol] Cholesterol in LDL [Mass/volume] in Serum or Plasma by calculation [facility] Comment on above: <100 mg/dl [id number] 0-129 mg/dl NEAR OR ABOVE [id number] mg/dl BORDERLINE VOIT821-624 mg/dl HIGH>190 mg/dl VERY HIGH Cholesterol in VLDL Calc [Ma ss/Vol]on 02-09-2024 Cholesterol in VLDL [Mass/Vol] Cholesterol in VLDL [Mass/volume] in Serum or Plasma by calculation [facility] Eosinophils/100 WBC Auto (Bl d)on 02-09-2024 Eosinophils/100 WBC (Bld) Automated eosinophil % High 0.9-7.0 [facility] Erythrocyte distribution wid th Auto (RBC) [Ratio]on 02-09-2024 Erythrocyte distribution width (RBC) [Ratio] Erythrocyte distribution width [Ratio] by Automated count 11.0-15.0 [facility] Estimated glomerular filtrat ion rate (GFR) non- Americanon 02-09-2024 GFR/1.73 sq M.predicted among non-blacks MDRD (S/P/Bld) [Vol rate/Area] Estimated glomerular filtration rate (GFR) non- >=60 mL/min/1.7 3m 2 [facility] Globulin Calc (S) [Mass/Vol] on 02-09-2024 Globulin (S) [Mass/Vol] Serum globulin measurement by calculation (mass/volume) [facility] Hematocrit Auto (Bld) [Volum e fraction]on 02-09-2024 Hematocrit (Bld) [Volume fraction] Hematocrit [Volume Fraction] of Blood by Automated count 42.0-54.0 [facility] Hemoglobin [Mass/volume] in Bloodon 02-09-2024 Hemoglobin (Bld) [Mass/Vol] Hemoglobin [Mass/volume] in Blood 14.0-18.0 [facility] Laboratory - Chemistry and C hemistry - challengeon 02-09-2024 Albumin [Mass/Vol] 3.7 g/dL 3.4-5.0 [facility] ALP [Catalytic activity/Vol] 65 U/L 46-116 [facility] ALT [Catalytic activity/Vol] 20 U/L 16-63 [facility] AST [Catalytic activity/Vol] 17 U/L 15-37 [facility] Bilirubin [Mass/Vol] 1.0 mg/dL 0.2-1.0 [facility] Calcium [Mass/Vol] 9.0 mg/dL 8.5-10.1 [facility] Chloride [Moles/Vol] 107 mmol/L 98-107 [facility] Cholesterol [Mass/Vol] 212 mg/dL High <=200 [facility] Cholesterol in HDL [Mass/Vol] 59 mg/dL 40-60 [facility] Comment on above: > or =60 mg/dl - LOW CARDIOVASCULAR RISK<40 mg/dl - HIGH CARDIOVASCULAR RISK CO2 [Moles/Vol] 30.0 mmol/L 21.0-32.0 [facility] Creatinine [Mass/Vol] 1.04 mg/dL 0.70-1.30 [facility] GFR/1.73 sq M.predicted MDRD (S/P/Bld) [Vol rate/Area] mL/min/{1.73_m2} >=60 mL/min/1.7 3m 2 [facility] Glucose [Mass/Vol] 112 mg/dL High 74-106 [facility] Potassium [Moles/Vol] 5.1 mmol/L 3.5-5.1 [facility] Protein [Mass/Vol] 6.8 g/dL 6.4-8.2 [facility] Sodium [Moles/Vol] 144 mmol/L 136-145 [facility] Triglyceride [Mass/Vol] 136 mg/dL <=150 [facility] Urea nitrogen [Mass/Vol] 21.0 mg/dL High 7.0-18.0 [facility] Urea nitrogen/Creatinine [Mass ratio] 20.2 mg/mg [facility] Laboratory - Hematology and Cell countson 02-09-2024 Immature granulocytes/100 WBC (Bld) 0.2 % 0.0-0.5 [facility] Leukocytes [#/volume] correc jodee for nucleated erythrocytes in Blood by Automated counon 02-09-2024 WBC corrected for nucl RBC Auto (Bld) [#/Vol] Leukocytes [#/volume] corrected for nucleated erythrocytes in Blood by Automated coun 4.0-11.0 [facility] Lymphocytes Auto (Bld) [#/Vo l]on 02-09-2024 Lymphocytes (Bld) [#/Vol] Lymphocytes [#/volume] in Blood by Automated count 1.2-3.8 [facility] Lymphocytes/100 WBC Auto (Bl d)on 02-09-2024 Lymphocytes/100 WBC (Bld) Lymphocytes/100 leukocytes in Blood by Automated count 20.5-60.0 [facility] MCH Auto (RBC) [Entitic mass ]on 02-09-2024 MCH (RBC) [Entitic mass] MCH [Entitic mass] by Automated count 25.9-34.0 [facility] MCHC Auto (RBC) [Mass/Vol]on 02-09-2024 MCHC (RBC) [Mass/Vol] MCHC [Mass/volume] by Automated count 29.9-35.2 [facility] MCV Auto (RBC) [Entitic vol] on 02-09-2024 MCV (RBC) [Entitic vol] MCV [Entitic volume] by Automated count High 80.0-94.0 [facility] Monocytes Auto (Bld) [#/Vol] on 02-09-2024 Monocytes (Bld) [#/Vol] Automated blood monocyte count 0.3-0.8 [facility] Monocytes/100 WBC Auto (Bld) on 02-09-2024 Monocytes/100 WBC (Bld) Automated monocyte % 1.7-12.0 [facility] Neutrophils Auto (Bld) [#/Vo l]on 02-09-2024 Neutrophils (Bld) [#/Vol] Neutrophils [#/volume] in Blood by Automated count 1.4-6.5 [facility] Neutrophils/100 WBC Auto (Bl d)on 02-09-2024 Neutrophils/100 WBC (Bld) Automated neutrophil % Low 43.0-75.0 [facility] No Panel Informationon 02-08 Eosinophils # (Auto) 0.6 10 3/uL 0.0-0.7 [facility] Immature Granulocyte # (Auto) 0.01 10 3/uL 0.00-0.03 [facility] Prostate Specific Antigen Screen 0.75 ng/mL <=4.00 [facility] Platelet mean volume Auto (B ld) [Entitic vol]on 02-09-2024 Platelet mean volume (Bld) [Entitic vol] Platelet mean volume [Entitic volume] in Blood by Automated count 9.5-13.5 [facility] Platelets Auto (Bld) [#/Vol] on 02-09-2024 Platelets (Bld) [#/Vol] Platelets [#/volume] in Blood by Automated count Low 150-450 [facility] RBC Auto (Bld) [#/Vol]on RBC (Bld) [#/Vol] Erythrocytes [#/volu me] in Blood by Automated count Low 4.70-6.10 [facility] Serum or plasma albumin/glob ulin mass ratioon 02-09-2024 Albumin/Globulin [Mass ratio] Serum or plasma albumin/globulin mass ratio [facility] Serum or plasma anion gap de terminationon 02-09-2024 Anion gap [Moles/Vol] Serum or plasma an ion gap determination [facility] Serum or plasma total choles terol/high density lipoprotein (HDL) cholesterol mass shaista 02-09-2024 Cholesterol.total/Cho lesterol in HDL [Mass ratio] Serum or plasma total cholesterol/high density lipoprotein (HDL) cholesterol mass rat [facility] Comment on above: 3.3 - 4.4 LOW RISK4. 4 - 7.1 AVERAGE RISK7.1 - 11.0 MODERATE RISK>11.0 HIGH RISK Automated basophil %Ordered By: Yogesh Jacob on 09-12-2023 Basophils/100 WBC (Bld) 0.8 % Normal . [facility] Comment on above: Performed By: #### C BC, CRP, DDIMER, ESR #### [address] Automated basophil countOrde red By: Yogesh Jacob on 09-12-2023 Basophils (Bld) [#/Vol] 0.0 10*3/uL Normal 0.0-0.2 [facility] Comment on above: Performed By: #### C BC, CRP, DDIMER, ESR #### [address] Automated blood monocyte cou ntOrdered By: Yogesh Jacob on 09-12-2023 Monocytes (Bld) [#/Vol] 0.7 10*3/uL Normal 0.0-0.8 [facility] Comment on above: Performed By: #### C BC, CRP, DDIMER, ESR #### [address] Automated eosinophil %Ordere d By: Yogesh Jacob on 09-12-2023 Eosinophils/100 WBC (Bld) 5.8 % Normal . [facility] Comment on above: Performed By: #### C BC, CRP, DDIMER, ESR #### [address] Automated eosinophil countOr dered By: Yogesh Jacob on 09-12-2023 Eosinophils (Bld) [#/Vol] 0.3 10*3/uL Normal 0.0-0.45 [facility] Comment on above: Performed By: #### C BC, CRP, DDIMER, ESR #### [address] Automated monocyte %Ordered By: Yogesh Jacob on 09-12-2023 Monocytes/100 WBC (Bld) 12.2 % Normal . [facility] Comment on above: Performed By: #### C BC, CRP, DDIMER, ESR #### [address] Automated neutrophil %Ordere d By: Yogesh Jacob on 09-12-2023 Neutrophils/100 WBC (Bld) 49.4 % Normal . [facility] Comment on above: Performed By: #### C BC, CRP, DDIMER, ESR #### [address] C reactive protein [Mass/vol ume] in Serum or PlasmaOrdered By: Yogesh Jacob on 09-12-2023 CRP [Mass/Vol] < 0.5 mg/dL 0.0-0.5 [facility] C-Reactive Proteinon 024 CRP [Mass/Vol] mg/L Normal 0.0-0.5 [facility] Comment on above: Result Comment: PERF ORMED BY: [place] [address] PATHOLOGIST HOUSEKEEPER/LAUNDRY ASSISTANT DOLORES RICHARDS M.D. Performed By: #### C BC, CRP, DDIMER, ESR #### [address] Complete Blood Count Auto Di ffon 09-12-2023 Mean Corpuscular HGB Conc 35.1 g/dL Normal 32.5-35.6 [facility] Comment on above: Performed By: #### C BC, CRP, DDIMER, ESR #### [address] NRBC% 0.1 /100{WBC} Normal 0-0.5 [facility] Comment on above: Performed By: #### C BC, CRP, DDIMER, ESR #### [place] [id number] [facility] D-Dimer High Sensitivityon 0 09-12-2023 D-Dimer High Sensitivity 233 ng/mL Normal 0-243 [facility] Comment on above: Result Comment: [...] coagulation studies. Please contact the laboratory at [phone] for redraw instructions. PERFORMED BY: [place] [address] PATHOLOGIST HOUSEKEEPER/LAUNDRY ASSISTANT DOLORES RICHARDS M.D. Performed By: #### C BC, CRP, DDIMER, ESR #### [address] Erythrocyte Sedimentation Ra enriqueta 09-12-2023 ESR (Bld) [Velocity] 10 mm/h Normal 0-19 [facility] Comment on above: Result Comment: PERF ORMED BY: [place] [address] PATHOLOGIST HOUSEKEEPER/LAUNDRY ASSISTANT DOLORES RICHARDS M.D. Performed By: #### C BC, CRP, DDIMER, ESR #### [address] Erythrocyte distribution wid th [Ratio] by Automated countOrdered By: Yogesh Jacob on 09-12-2023 Erythrocyte distribution width (RBC) [Ratio] 12.8 % Normal 12.0-14.8 [facility] Comment on above: Performed By: #### C BC, CRP, DDIMER, ESR #### [address] [place] [address] [facility] Erythrocyte sedimentation ra te by Photometric methodOrdered By: Yogesh Jacob on 09-12-2023 ESR Photometric method (Bld) [Velocity] 10 mm/hr 0-19 [facility] Erythrocytes [#/volume] in B lood by Automated countOrdered By: Yogesh Jacob on 09-12-2023 RBC (Bld) [#/Vol] 4.35 10*6/uL Normal 3.90-5.60 [facility] Comment on above: Performed By: #### C BC, CRP, DDIMER, ESR #### [facility] [address] [place] [id number] [facility] Fibrin D-dimer [Presence] in Platelet poor plasma by Latex agglutinationOrdered By: Yogesh Jacob on 09-12-2023 Fibrin D-dimer LA Ql (PPP) 233 ng/mL 0-243 [facility] Comment on above: The reference range for [...] coagulation studies. Please contact the laboratory at [phone] for redraw instructions. Hematocrit [Volume Fraction] of Blood by Automated countOrdered By: Yogesh Jacob on 09-12-2023 Hematocrit (Bld) [Volume fraction] 40.7 % Normal 38.8-50.0 [facility] Comment on above: Performed By: #### C BC, CRP, DDIMER, ESR #### [facility] [address] [place] [id number] [place] Hemoglobin [Mass/volume] in BloodOrdered By: Yogesh Jacob on 09-12-2023 Hemoglobin (Bld) [Mass/Vol] 14.3 g/dL Normal 13.0-17.0 [facility] Comment on above: Performed By: #### C BC, CRP, DDIMER, ESR #### [address] Leukocytes [#/volume] correc jodee for nucleated erythrocytes in Blood by Automated counOrdered By: Yogesh Jacob on 09-12-2023 WBC corrected for nucl RBC Auto (Bld) [#/Vol] 5.3 10*3/uL 4.1-10.5 [facility] Leukocytes [#/volume] in Blo od by Automated countOrdered By: Yogesh Jacob on 09-12-2023 WBC (Bld) [#/Vol] 5.3 10*3/uL Normal 4.1-10.5 [facility] Comment on above: Performed By: #### C BC, CRP, DDIMER, ESR #### [address] Lymphocytes [#/volume] in Bl ood by Automated countOrdered By: Yogesh Jacob on 09-12-2023 Lymphocytes (Bld) [#/Vol] 1.7 10*3/uL Normal 1.00-4.8 [facility] Comment on above: Performed By: #### C BC, CRP, DDIMER, ESR #### [address] Lymphocytes/100 leukocytes i n Blood by Automated countOrdered By: Yogesh Jacob on 09-12-2023 Lymphocytes/100 WBC (Bld) 31.8 % Normal . [facility] Comment on above: Performed By: #### C BC, CRP, DDIMER, ESR #### [place] [address] [place] MCH [Entitic mass] by Automa jodee countOrdered By: Yogesh Jacob on 09-12-2023 MCH (RBC) [Entitic mass] 32.9 pg Normal 27.5-35.2 [facility] Comment on above: Performed By: #### C BC, CRP, DDIMER, ESR #### [facility] [address] MCHC Auto (RBC) [Mass/Vol]Or dered By: Yogesh Jacob on 09-12-2023 MCHC (RBC) [Mass/Vol] 35.1 g/dL 32.5-35.6 [facility] MCV [Entitic volume] by Auto mated countOrdered By: Yogesh Jacob on 09-12-2023 MCV (RBC) [Entitic vol] 93.7 fL Normal 83.5-101 [facility] Comment on above: Performed By: #### C BC, CRP, DDIMER, ESR #### [facility] [address] Neutrophils [#/volume] in Bl ood by Automated countOrdered By: Yogesh Jacob on 09-12-2023 Neutrophils (Bld) [#/Vol] 2.6 10*3/uL Normal 1.8-7.7 [facility] Comment on above: Performed By: #### C BC, CRP, DDIMER, ESR #### [facility] [address] Nucleated erythrocytes [Pres ence] in Blood by Automated countOrdered By: Yogesh Jacob on 09-12-2023 Nucleated RBC Auto Ql (Bld) 0.1 /100{WBC} 0-0.5 [facility] Platelet mean volume [Entiti c volume] in Blood by Automated countOrdered By: Yogesh Jacob on 09-12-2023 Platelet mean volume (Bld) [Entitic vol] 9.0 fL Normal 6.6-10.1 [facility] Comment on above: Performed By: #### C BC, CRP, DDIMER, ESR #### [facility] [address] [place] [address] [place] Platelets [#/volume] in Bloo d by Automated countOrdered By: Yogesh Jacob on 09-12-2023 Platelets (Bld) [#/Vol] 127 10*3/uL Low 150-450 [facility] Comment on above: Performed By: #### C BC, CRP, DDIMER, ESR #### [facility] [address] [place] [id number] [facility] XR knee LT 3V - NOT FOR ER U Jake 09-12-2023 XR knee LT 3V - NOT FOR ER USE [facility] Bone [facility] [address] [place] [id number] XRay Report Signed Patient: Yanelis Noriega MR#: [id number] : 1945 Acct:[id number] Age/Sex: 78 / M ADM Date: 09/12/23 Loc: SOXD Room: Type: REG CLI Attending Dr: Yogesh Jacob II, MD [...] Reji Alvarado M.D.09/12/2023 3:39 PM Dictation Location: [place] [address] Transcribed By: [facility] 09/12/23 1539 Dictated By: Reji Alvarado DO 09/12/23 1538 Signed By: 09/12/23 1539 Normal [facility] XR pelvis 1-2Von 09-12-2023 XR pelvis 1-2V [facility] Bone [facility] [address] [place] [address] XRay Report Signed Patient: Yanelis Noriega MR#: [id number] : 1945 Acct:[id number] Age/Sex: 78 / M ADM Date: 09/12/23 Loc: SOXD Room: Type: REG CLI Attending Dr: Yogesh Jacob II, MD [...] Reji Alvarado M.D.09/12/2023 3:38 PM Dictation Location: [facility]08 Transcribed By: [facility] 09/12/23 153 Dictated By: Reji Alvarado DO 09/12/231536 Signed By: 09/12/231537 Normal [facility] Alanine Aminotransferaseon 1 04-02-2022 ALT [Catalytic activity/Vol] 18 U/L Normal 16-63 U/L [employer] Other Basic Metabolic Panelon 12-0 Anion gap [Moles/Vol] 10.8 mmol/L No rt [employer] Other Calcium [Mass/Vol] 8.9423828 mg/dL Normal 8.5-10 .1 mg/dL [employer] Other Chloride [Moles/Vol] 105 mmol/L Normal 98-107 mmol/L [employer] Other CO2 [Moles/Vol] 30.31527858 mmol/L Normal 21.0-3 2.0 mmol/L [employer] Other Creatinine [Mass/Vol] 1.62520663 mg/dL Normal 0. 70-1.30 mg/dL [employer] Other Glucose [Mass/Vol] 151 mg/dL High 74-106 mg/dL [employer] Other Potassium [Moles/Vol] 4.62973867 mmol/L Normal 3 .5-5.1 mmol/L [employer] Other Sodium [Moles/Vol] 142 mmol/L Normal 136-145 mmol/L [employer] Other Urea nitrogen [Mass/Vol] 18.6309663 mg/dL Normal 7.0-18.0 mg/dL [employer] Other Urea nitrogen/Creatinine [Mass ratio] 17.0 mg/mg [place] [employer] Other Basic Metabolic Panel see note [facility] [employer] Other Basic Metabolic Panel >60 >=60 [facility] [employer] Other Lipid Panelon 01-30-2023 Cholesterol [Mass/Vol] 178 mg/dL <=200 mg/dL [employer] Other Cholesterol in HDL [Mass/Vol] 53 mg/dL Normal 40-60 mg/dL [employer] Other Triglyceride [Mass/Vol] 174 mg/dL High <=150 mg/dL [employer] Other Lipid Panel 91.0 mg/dL [employer] Other Lipid Panel 34.8 mg/dL [employer] Other Lipid Panel 3.4 [employer] Other PSA SCREENINGon 01-30-2023 PSA SCREENING 0.74 ng/mL <=4.00 ng/mL [place] [employer] Other Heart TransthoracicOrdere d By: Teo Johnson on 12-25-2022 LV A4C EF 62.2 [facility] Work Phone: [facility] Work Phone: Heart [facility] [address], [place] [address] TRANSTHORACIC ECHOCARDIOGRAM REPORT Patient Name: YANELIS NORIEGA Lyndon Physician: [id number] Teo Johnson MD, [facility] Study Date: 12/21/2022 Ordering Provider: [id number] TEO JOHNSON MRN/PID: [id number] Fellow: Nurse: Sveta Trinh RN Date of /Age: 11 1945 / 77 years Senior Business Consultant: Osiris Barba RDCS, RVT Gender: M Additional Staff: Height: 170.18 cm Admit Date: Weight: 82.56 kg Admission Status: BSA: 1.94 m2 Department Location: [facility] Blood Pressure: 154 /86 mmHg Study Type: TRANSTHORACIC ECHO (TTE) LIMITED Diagnosis/ICD: Abnormal findings on diagnostic imaging of heart and coronary circulation-R93.1; Cerebral Infarction, unspecified-I63.9 Indication: HTN, Hyperlipidemia, Former Smoker, History of CVA, History of DVT, Overweight, Lacunar Infarct, Daily ETOH CPT Codes: Echo Limited-71002 Study Detail: The following Echo studies were [...] and the bubble study demonstrated PFO with vaicm-ur-wpmk shunt. Right Ventricle: The right ventricle is [...] and the bubble study demonstrated PFO with hxtol-xv-teea shunt. 3. Aortic valve appears abnormal. QUANTITATIVE [...] Normal Ranges: LVOT Diameter: 2.40 cm (1.8-2.4cm) [id number] Johnson MD, [facility] Electronically signed on 12/25/2022 at 10:42:09 AM Final Teo Samano M D - 12/25/[address], [address] [place] [address] TRANSTHORACIC ECHOCARDIOGRAM REPORT Patient Name: YANELIS NORIEGA [place] Physician: Jessa Johnson MD, [facility] Study Date: 12/21/2022 Ordering Provider: Jessa JOHNSON MRN/PID: [id number] Fellow: Nurse: Sveta Trinh RN Date of /Age: 11 1945 / 77 years Senior Business Consultant: Osiris Barba RDCS, RVT Gender: M Additional Staff: Height: 170.18 cm Admit Date: Weight: 82.56 kg Admission Status: BSA: 1.94 m2 Department Location: [facility] Blood Pressure: 154 /86 mmHg Study Type: TRANSTHORACIC ECHO (TTE) LIMITED Diagnosis/ICD: Abnormal findings on diagnostic imaging of heart and coronary circulation-R93.1; Cerebral Infarction, unspecified-I63.9 Indication: HTN, Hyperlipidemia, Former Smoker, History of CVA, History of DVT, Overweight, Lacunar Infarct, Daily ETOH CPT Codes: Echo Limited-96178 Study Detail: The following Echo studies were [...] and the bubble study demonstrated PFO with uzrvx-ib-fros shunt. Right Ventricle: The right ventricle is [...] and the bubble study demonstrated PFO with dpukm-ru-lgyh shunt. 3. Aortic valve appears abnormal. QUANTITATIVE [...] Normal Ranges: LVOT Diameter: 2.40 cm (1.8-2.4cm) [id number] Teo Johnson MD, [facility] Electronically signed on 12/25/2022 at 10:42:09 AM Final [facility] Work Phone: Office Visit (Cardiology)on 11-09-2022 Follow-up visit Diagnoses/Problems [...] Bubble Study; Status:Hold For - Scheduling; Requested for:[id number]; Laterality : Bilateral History of stroke, Hyperlipidemia, Hypertension IO EKG Electrocardiogram- 12 Lead; Status:Complete; Done: [id number] Overweight with body mass index (BMI) of 28 to 28.9 in adult Healthy Weight Tips; Status:Complete; Done: [id number] Some eating tips that can help you lose weight.; Status:Complete; Done: [id number] SocHx: Former smoker Tobacco Use Screening; Status:Complete; Done: [id number] Patient Instructions Please bring all medicines, vitamins, [...] neurological symptoms. He had transthoracic echocardiogram in [facility] which she read possible PFO. There was [...] I did review the echo report from [facility] and the other imaging studies. Assessment/recommendations : [...] 20 MG Oral TabletTAKE 1 TABLET DAILY. Kbw-Qib-Ujxi 333-133-5 MG TABSTAKE 1 TABLET DAILY. Eliquis [...] Gastrointestinal: no (more content not included)... Normal [facility] Tobacco Screening.on 023 Adult depression screening assessment No [facility] [employer] [facility] 250 DO Work Phone: Fall risk assessment a) No falls within the last year [facility] 250 DO Work Phone: Tobacco use status [facility] b) No [facility] 250 DO Work Phone: [place] 08-31-2022 Screens [id number]#[id number]:127 Normal [facility] Screens [id number]#[id number]:127 [facility] Ambulatory Visit Summaryon 0 08-30-2022 Ambulatory Visit Summary YANELIS NORIEGA :1945 Visit Date:08/30/2022 Ambulatory Visit Instructions Your Diagnosis BPH without urinary obstruction Anticoagulated Tests Performed Urnls Dip Stick Auto w/o Microscopy POC 42044 Your Care Team Attending Physician - Fred TABARES, Clarisa Cedeno Primary Care Physician - BLU VELEZ DO [...] Following Appointments Follow Up with Fred TABARES, ALVARO Brizuela, URO When: Comments: PRN Where: Medications What [...] Urnls Dip Stick Auto w/o Microscopy POC 11739 (08/30/2022) Bilirubin Urine Dipstick - Negative Blood Urine Dipstick - Negative Glucose Urine Dipstick - Negative Ketones Urine Dipstick - Negative Leukocytes Urine Dipstick - Negative Nitrite Urine Dipstick - Negative Protein Urine Dipstick - Negative Specific [place] Urine Dipstick - >=1.030 Urine Appearance Urine [...] to s (more content not included)... Normal [facility] Patient Educationon 08-31-19 Patient Education Urology [...] Follow these instructions at home: ? Take saxr-zej-eiesqjt and prescription medicines only as told by [...] the medicine (more content not included)... Normal [facility] Urology Office/Clinic Noteon 08-30-2022 Urology Office/Clinic [...] changes in urinary symptoms. 2. 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 Ibarra on 08/30/2022 10:06:04. . Documentation recorded by [...] Immunizations Vaccine Date Status Comments SARS-CoV-2 (COVID-19) [id number] 11/15/2021 Recorded SARS-CoV-2 (COVID-19) mRNA BNT-162b2 vax [...] Negative (08/30/22 (more content not included)... Normal [facility] Comment on above: Result Comment: Elec tronically Signed By: Clarisa Ibarra MD\.br\Date and Time Signed: 08/30/22 10:47 EDT\.br\Electronically Co-Signed By: Jenny Britt\.br\Date and Time Co-Signed: 08/30/22 10:06 EDT Lab [facility] 08-28-2022 Lab Reports [id number]:127 Normal [facility] Covid-19 PCR (CVDTB)on 01-27 SARS-CoV-2 (COVID-19) RNA MEREDITH+probe Ql (Unsp spec) Not detected Normal NOT DETECTED [facility] Comment on above: Result Comment: This test is not yet approved or cleared by the [place] FDA. When there are no FDA-approved or cleared tests available, and other criteria are met, FDA can make tests available under an emergency access mechanism called an Emergency Use Authorization (EUA). The EUA for this test is supported by the [place] of Health and Human Service's (HHS's) declaration [...] SARS-CoV-2. Performed By: #### C VDTB #### [facility] [address] [place] [address] Dr. Tisha John CBC AUTO DIFFon 01-23-2022 BASO # 0.1 103/ul Normal 0.0-0.1 [facility] Comment on above: Performed By: #### C BC #### [facility] [address] [place] [address] Dr. Tisha John Basophils/100 WBC (Bld) 1.3 % Normal 0.2-2.0 [facility] Comment on above: Performed By: #### C BC #### [facility] [address] [place] [address] Dr. Tisha John EO # 0.5 103/ul Normal 0.0-0.7 [facility] Comment on above: Performed By: #### C BC #### [facility] [address] [place] [address] Dr. Tisha John Eosinophils/100 WBC (Bld) 8.8 % Critically high 0.9-7.0 [facility] Comment on above: Performed By: #### C BC #### [facility] [address] [place] [address] Dr. Tisha John Erythrocyte distribution width (RBC) [Ratio] 11.9 % Normal 11.0-15.0 [facility] Comment on above: Performed By: #### C BC #### [facility] [address] [place] [address] Dr. Tisha John Hematocrit (Bld) [Volume fraction] 40.5 % Critically low 42.0-54.0 [facility] Comment on above: Performed By: #### C BC #### [facility] [address] [place] [address] Dr. Tisha John Hemoglobin (Bld) [Mass/Vol] 14.5 g/dL Normal 14.0-18.0 [facility] Comment on above: Performed By: #### C BC #### [facility] [address] [place] [address] Dr. Tisha John IG # 0.02 10e3/ul Normal 0.00-0.03 [facility] Comment on above: Performed By: #### C BC #### [facility] [address] [place] [address] Dr. Tisha John IG % 0.4 % Normal 0.0-0.5 [facility] Comment on above: Performed By: #### C BC #### [facility] [address] [place] [address] Dr. Tisha John LYMPH # 1.8 103/ul Normal 1.2-3.8 [facility] Comment on above: Performed By: #### C BC #### [facility] [address] [place] [address] Dr. Tisha John Lymphocytes/100 WBC (Bld) 32.2 % Normal 20.5-60.0 [facility] Comment on above: Performed By: #### C BC #### [facility] [address] [place] [address] Dr. Tisha John MANUAL DIFF REQ NO Normal [facility] Comment on above: Performed By: #### C BC #### [facility] [address] [place] [address] Dr. Tisha John MCH (RBC) [Entitic mass] 32.1 pg Normal 25.9-34.0 [facility] Comment on above: Performed By: #### C BC #### [facility] [address] [place] [address] Dr. Tisha John MCHC (RBC) [Mass/Vol] 35.8 g/dL Critically high 29.9-35.2 [facility] Comment on above: Performed By: #### C BC #### [facility] [address] [place] [address] Dr. Tisha John MCV (RBC) [Entitic vol] 89.6 fL Normal 80.0-94.0 [facility] Comment on above: Performed By: #### C BC #### [facility] [address] [address] [address] Tisha John MONO # 0.6 103/ul Normal 0.3-0.8 [facility] Comment on above: Performed By: #### C BC #### [facility] [address] [address] [address] Tisha John Monocytes/100 WBC (Bld) 11.3 % Normal 1.7-12.0 [facility] Comment on above: Performed By: #### C BC #### [facility] [address] [address] [address] Tisha John NEUT # 2.6 103/ul Normal 1.4-6.5 [facility] Comment on above: Performed By: #### C BC #### [facility] [address] [address] [address] Tisha John Neutrophils/100 WBC (Bld) 46.0 % Normal 43.0-75.0 [facility] Comment on above: Performed By: #### C BC #### [facility] [address] [address] [address] Tisha John Platelet mean volume (Bld) [Entitic vol] 10.5 fL Normal 9.5-13.5 [facility] Comment on above: Performed By: #### C BC #### [facility] [address] [address] [address] Tisha John PLT 134 103/ul Critically low 150-450 [facility] Comment on above: Performed By: #### C BC #### [facility] [address] [address] [address] Tisha John RBC 4.52 106/ul Critically low 4.70-6.10 [facility] Comment on above: Performed By: #### C BC #### [facility] [address] [address] [address] Tisha John WBC 5.6 103/ul Normal 4.0-11.0 [facility] Comment on above: Performed By: #### C BC #### [facility] [address] [address] [address] Tisha John LIPID PROFILEon 01-23-2022 CHOL-HDL RATIO NORM SEE BELOW Normal [facility] Comment on above: Result Comment: 3.3 - 4.4 LOW RISK 4.4 - 7.1 AVERAGE RISK 7.1 - 11.0 MODERATE RISK >11.0 HIGH RISK Performed By: #### A LT, BMP, LIPID #### [facility] [address] [address] [address] Tisha John Cholesterol [Mass/Vol] 187 mg/dL Normal <=200 [facility] Comment on above: Performed By: #### A LT, BMP, LIPID #### [facility] [address] [address] [address] Tisha John Cholesterol in HDL [Mass/Vol] 51 mg/dL Normal 40-60 [facility] Comment on above: Performed By: #### A LT BMP, LIPID #### [facility] [address] [address] [address] Tisha John Cholesterol in LDL [Mass/Vol] 104.8 mg/dL Normal [facility] Comment on above: Performed By: #### A LT BMP, LIPID #### [facility] [address] [address] [address] Tisha John Cholesterol.total/Cho lesterol in HDL [Mass ratio] 3.7 {ratio} Normal [facility] Comment on above: Performed By: #### A LT, BMP, LIPID #### [facility] [address] [address] [address] Tisha John HDL NORMAL > or = 60 mg/dl - LO W CARDIOVASCULAR RISK <40 mg/dl - HIGH CARDIOVASCULAR RISK Normal [facility] Comment on above: Performed By: #### A LT, BMP, LIPID #### [facility] [address] [address] [address] Tisha John LDL CALC NORMAL SEE BELOW Normal [facility] Comment on above: Result Comment: <100 mg/dl OPTIMAL 100 - 129 mg/dl NEAR OR ABOVE OPTIMAL 130 - 159 mg/dl BORDERLINE HIGH 160 - 189 mg/dl HIGH >190 mg/dl VERY HIGH Performed By: #### A LT, BMP, LIPID #### [facility] [address] [address] [address] Tisha John Triglyceride [Mass/Vol] 156 mg/dL Critically high <=150 [facility] Comment on above: Performed By: #### A LT, BMP, LIPID #### [facility] [address] [address] [address] Tisha John VLDL CALC 31.2 mg/dL Normal [facility] Comment on above: Performed By: #### A LT, BMP, LIPID #### [facility] [address] [place] [address] Dr. Tisha John PROF CHEM 8 (BAS METB)on Anion gap [Moles/Vol] 10.7 mmol/L Normal [facility] Comment on above: Performed By: #### A LT, BMP, LIPID #### [facility] [address] [place] [address] Dr. Tisha John Calcium [Mass/Vol] 8.7 mg/dL Normal 8.5-10.1 [facility] Comment on above: Performed By: #### A LT, BMP, LIPID #### [facility] [address] [place] [address] Dr. Tisha John Chloride [Moles/Vol] 102 mmol/L Normal 98-107 [facility] Comment on above: Performed By: #### A LT, BMP, LIPID #### [facility] [address] [place] [address] Dr. Tisha John CO2 [Moles/Vol] 30.7 mmol/L Normal 21.0-32.0 [facility] Comment on above: Performed By: #### A LT, BMP, LIPID #### [facility] [address] [place] [address] Dr. Tisha John Creatinine [Mass/Vol] 0.88 mg/dL Normal 0.70-1.30 [facility] Comment on above: Performed By: #### A LT, BMP, LIPID #### [facility] [address] [place] [address] Dr. Tisha John EGFR-AF KITTITIAN >60 Normal >=60 [facility] Comment on above: Performed By: #### A LT, BMP, LIPID #### [facility] [address] [place] [address] Dr. Tisha John EGFR-NON AF [place]ITT[place]IAN >60 Normal >=60 [facility] Comment on above: Performed By: #### A LT, BMP, LIPID #### [facility] [address] [place] [address] Dr. Tisha John Glucose [Mass/Vol] 106 mg/dL Normal 74-106 [facility] Comment on above: Performed By: #### A LT, BMP, LIPID #### [facility] [address] [place] [address] Dr. Tisha John Potassium [Moles/Vol] 4.4 mmol/L Normal 3.5-5.1 [facility] Comment on above: Performed By: #### A LT, BMP, LIPID #### [facility] [address] [place] [address] Dr. Tisha John Sodium [Moles/Vol] 139 mmol/L Normal 136-145 [facility] Comment on above: Performed By: #### A LT, BMP, LIPID #### [facility] [address] [place] [address] Dr. Tisha John Urea nitrogen [Mass/Vol] 16.0 mg/dL Normal 7.0-18.0 [facility] Comment on above: Performed By: #### A LT, BMP, LIPID #### [facility] [address] [place] [address] Dr. Tisha John Urea nitrogen/Creatinine [Mass ratio] 18.2 mg/mg Normal [facility] Comment on above: Performed By: #### A LT, BMP, LIPID #### [facility] [address] [place] [address] Dr. Tisha John [facility] 01-23-2022 ALT [Catalytic activity/Vol] 23 U/L Normal 16-63 [facility] Comment on above: Performed By: #### A LT, BMP, LIPID #### [facility] [address] [address] [address] Tisha John Ambulatory Visit Summaryon 1 03-13-2021 Ambulatory Visit Summary YANELIS NORIEGA :1945 Visit Date:2022 Ambulatory Visit Instructions Your Diagnosis BPH without urinary obstruction Anticoagulated Tests Performed Urnls Dip Stick Auto w/o Microscopy POC 75965 Your Care Team Attending Physician - Clarisa [...] Clarisa Ibarra MD Where: [facility] Patient Educationon 01-12-20 22 Patient Education Urology [...] Follow these instructions at home: ? Take lwaz-jiz-hipfyrf and prescription medicines only as told by [...] You d (more content not included)... Normal [facility] Urology Office/Clinic Noteon 2022 Urology Office/Clinic [...] changes in urinary symptoms. 2. 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 Ibarra on 2022 12:10:42. . Documentation recorded by the [place], accurately reflects the services(s) I performed and [...] Protein Urine Dipstick: Negative (01/11/22 11:11:00) Specific [place] Urine Dipstick: 1.025 (01/11/22 11:11:00) Urine Appearance Urine Dipstick: Clear (01/11/22 11:11:00) Urine Color Urine Dipstick: Yellow (01/11/22 11:11:00) Urobilinogen Urine Dipstick: Normal 0.2-1 EU/dl (01/11/22 11:11:00) pH Urine Dipstick: 5 (01/11/22 11:11:00) Diagnostic Results Tests Re (more content not included)... Normal [facility] Comment on above: Result Comment: Elec tronically Signed By: Clarisa Ibarra MD\.br\Date and Time Signed: 01/11/22 12:31 EST\.br\Electronically Co-Signed By: Petrona Perera\.br\Date and Time Co-Signed: 01/11/22 12:10 EST [facility] 11-23-2021 Lab Reports [id number]:127 Normal [facility] Basic Metab w/rfx MGon 08-22 (cont.) Normal [facility] Comment on above: Result Comment: Aver age GFR for 70 or more years old: 75 mL/min/1.73sq m Chronic Kidney Disease: <60 mL/min/1.73sq m Kidney failure: <15 mL/min/1.73sq m eGFR calculated using average adult body mass. Additional eGFR calculator available at: http://www.Metabolomx/multiple_crcl_2011.htm Performed By: #### C NIKOLAI, BMPX #### [facility] [address]. [place], [place] [id number] Book Mender: Preet Castillo MD Anion gap [Moles/Vol] 13 mmol/L Normal 9-17 [facility] Comment on above: Performed By: #### C NIKOLAI, BMPX #### [facility] [address] [place], [place] [id number] Book Mender: Preet Castillo MD BUN/CRE Ratio 20 Normal 9-20 [facility] Comment on above: Performed By: #### C NIKOLAI, BMPX #### [facility] [address] [place] [address] Book Mender: Preet Castillo MD Calcium [Mass/Vol] 8.5 mg/dL Low 8.6-10.4 [facility] Comment on above: Performed By: #### C BC, BMPX #### [facility] [address] [place] [address] Book Mender: Preet Castillo MD Chloride [Moles/Vol] 105 mmol/L Normal 98-107 [facility] Comment on above: Performed By: #### C BC, BMPX #### [facility] [address] [place] [address] Book Mender: Preet Castillo MD CO2 [Moles/Vol] 23 mmol/L Normal 20-31 [facility] Comment on above: Performed By: #### C BC, BMPX #### [facility] [address] [place] [address] Book Mender: Preet Castillo MD Creatinine [Mass/Vol] 0.64 mg/dL Low 0.70-1.20 [facility] Comment on above: Performed By: #### C BC, BMPX #### [facility] [address] [place] [address] Book Mender: Preet Castillo MD GFR, Amer >60 Normal >60 [facility] Comment on above: Performed By: #### C BC, BMPX #### [facility] [address] [place] [address] Book Mender: Preet Castillo MD GFR,non Amer >60 Normal >60 [facility] Comment on above: Performed By: #### C BC, BMPX #### [facility] [address] [place] [address] Book Mender: Preet Castillo MD Glucose [Mass/Vol] 108 mg/dL High 70-99 [facility] Comment on above: Performed By: #### C BC, BMPX #### [facility] [address] [place] [address] Book Mender: Preet Castillo MD Potassium [Moles/Vol] 4.0 mmol/L Normal 3.7-5.3 [facility] Comment on above: Performed By: #### C BC, BMPX #### [facility] [address] [place] [address] Book Mender: Preet Castillo MD Sodium [Moles/Vol] 141 mmol/L Normal 135-144 [facility] Comment on above: Performed By: #### C NIKOLAI, BMPX #### [facility] [address] [place] [address] Book Mender: Preet Castillo MD Urea nitrogen [Mass/Vol] 13 mg/dL Normal 8-23 [facility] Comment on above: Performed By: #### C NIKOLAI, BMPX #### [facility] [address] [place] [address] Book Mender: Preet Castillo MD Staging: NOT REPORTED Normal [facility] Comment on above: Performed By: #### C NIKOLAI, BMPX #### [facility] [address] [place] [address] Book Mender: Preet Castillo MD Basic Metabolic Panel w/ Ref tyrese to MGOrdered By: Rachel Mclean on 08-22-2020 Anion gap [Moles/Vol] 13 mmol/L 9 - 17 mmol/L [facility] Work Phone: Calcium [Mass/Vol] 8.5 mg/dL Low 8.6 - 10. 4 mg/dL [facility] Work Phone: Chloride [Moles/Vol] 105 mmol/L 98 - 10 7 mmol/L [employer] Phone: CO2 [Moles/Vol] 23 mmol/L 20 - 31 mmol/L [employer] Phone: Creatinine [Mass/Vol] 0.64 mg/dL Low 0.70 - 1.20 mg/dL [employer] Phone: GFR >60 >60 mL/min [employer] Phone: GFR Non- >60 >60 mL/min [employer] Phone: GFR/1.73 sq M.predicted MDRD (S/P/Bld) [Vol rate/Area] [employer] Phone: Comment on above: Average GFR for 70 o r more years old: 75 mL/min/1.73sq m Chronic Kidney Disease: <60 mL/min/1.73sq m Kidney failure: <15 mL/min/1.73sq m eGFR calculated using average adult body mass. Additional eGFR calculator available at: http://www.Metabolomx/multiple_crcl_2012.htm GFR/1.73 sq M.predicted MDRD (S/P/Bld) [Vol rate/Area] NOT REPORTED [employer] Phone: Glucose [Mass/Vol] 108 mg/dL High 70 - 99 mg/dL [employer] Phone: Interpretation and review of laboratory results Abnormal [employer] Phone: Potassium [Moles/Vol] 4.0 mmol/L 3.7 - 5.3 mmol/L [employer] Phone: Sodium [Moles/Vol] 141 mmol/L 135 - 144 mmol/L [employer] Phone: Urea nitrogen (BldV) [Mass/Vol] 13 mg/dL 8 - 23 mg/dL [employer] Phone: Urea nitrogen/Creatinine (Bld) [Mass ratio] 20 [facility] Work Phone: [facility] Work Phone: CBCon 08-22-2020 Erythrocyte distribution width (RBC) [Ratio] 12.9 % Normal 11.8-14.4 [facility] Comment on above: Performed By: #### C BC, BMPX #### [facility] [address] [place] [address] Book Mender: Preet Castillo MD Hematocrit (Bld) [Volume fraction] 31.3 % Low 40.7-50.3 [facility] Comment on above: Performed By: #### C BC, BMPX #### [facility] [address] [place] [address]. [place] [address] Book Mender: Preet Castillo MD Hemoglobin (Bld) [Mass/Vol] 10.1 g/dL Low 13.0-17.0 [facility] Comment on above: Performed By: #### C NIKOLAI, BMPX #### [facility] [address] [place] [address]. [place] [address] Book Mender: Preet Castillo MD MCH (RBC) [Entitic mass] 31.0 pg Normal 25.2-33.5 [facility] Comment on above: Performed By: #### C BC, BMPX #### [facility] [facility] [place] [address] Book Mender: Preet Castillo MD MCHC (RBC) [Mass/Vol] 32.3 g/dL Normal 28.4-34.8 [facility] Comment on above: Performed By: #### C BC, BMPX #### [facility] [facility] [place] [address] Book Mender: Preet Castillo MD MCV (RBC) [Entitic vol] 96.0 fL Normal 82.6-102.9 [facility] Comment on above: Performed By: #### C BC, BMPX #### [facility] [address] [facility] [place] [address] Book Mender: Preet Castillo MD NRBC Automated 0.0 per 100 WBC Normal 0.0 [facility] Comment on above: Performed By: #### C BC, BMPX #### [facility] [address] [place] [address] Book Mender: Preet Castillo MD Platelet mean volume (Bld) [Entitic vol] 10.4 fL Normal 8.1-13.5 [facility] Comment on above: Performed By: #### C BC, BMPX #### [facility] [address] [place] [address]. [place] [address] Book Mender: Preet Castillo MD Platelets (Bld) [#/Vol] 196 10*3/uL Normal 138-453 [facility] Comment on above: Performed By: #### C NIKOLAI, BMPX #### [facility] [facility] [place] [address] Book Mender: Preet Castillo MD RBC (Bld) [#/Vol] 3.26 10*6/uL Low 4.21-5.77 [facility] Comment on above: Performed By: #### C BC, BMPX #### [facility] [facility] [place] [address] Book Mender: Preet Castillo MD WBC (Bld) [#/Vol] 6.1 10*3/uL Normal 3.5-11.3 [facility] Comment on above: Performed By: #### C BC, BMPX #### [facility] [address] [place] [address] Book Mender: Preet Castillo MD CBCOrdered By: Rachel logan on 08-22-2020 Hematocrit (Bld) [Volume fraction] 31.3 % Low 40.7 - 50.3 % [employer] Phone: Hemoglobin.gastrointe stinal spec 1 Ql (Stl) 10.1 g/dL Low 13.0 - 17.0 g/dL [employer] Phone: Interpretation and review of laboratory results Abnormal [employer] Phone: MCH (RBC) [Entitic mass] 31.0 pg 25.2 - 33.5 pg [employer] Phone: MCHC (RBC) [Mass/Vol] 32.3 g/dL 28.4 - 34.8 g/dL [employer] Phone: MCV (RBC) [Entitic vol] 96.0 fL 82.6 - 102.9 fL [employer] Phone: NRBC Automated 0.0 0.0 per 100 WBC [employer] Phone: Platelet distribution width (Bld) [Ratio] 12.9 % 11.8 - 14.4 % [employer] Phone: Platelet mean volume (Bld) [Entitic vol] 10.4 fL 8.1 - 13.5 fL [employer] Phone: Platelets (Bld) [#/Vol] 196 10*3/uL [employer] Phone: RBC (Bld) [#/Vol] 3.26 10*6/uL Low 4.21 - 5.77 m/uL [employer] Phone: WBC (Bld) [#/Vol] 6.1 10*3/uL [employer] Phone: [employer] Phone: CBC with DIFFOrdered By: Tabby Maharaj on 08-21-2020 Absolute Eos # 0.04 [employer] [facility] Work Phone: Absolute Immature Granulocyte 0.03 [employer] Work Phone: Absolute Lymph # 1.16 [employer] [facility] Work Phone: Absolute [place] # 0.76 [employer] [facility] Work Phone: Basophils (Bld) [#/Vol] 0.03 10*3/uL [employer] Work Phone: Basophils/100 WBC (Bld) 0 % 0 - 2 % [employer] Phone: Differential Type NOT REPORTED [employer] Phone: Eosinophils/100 WBC (Bld) 1 % 1 - 4 % [employer] Phone: Hematocrit (Bld) [Volume fraction] 32.2 % Low 40.7 - 50.3 % [employer] Work Phone: Hemoglobin.gastrointe stinal spec 1 Ql (Stl) 10.6 g/dL Low 13.0 - 17.0 g/dL [employer] Phone: Immature granulocytes/100 WBC (Bld) 0 % 0 [employer] Phone: Interpretation and review of laboratory results Abnormal [employer] Phone: Lymphocytes/100 WBC (Bld) 14 % Low 24 - 43 % [employer] Phone: MCH (RBC) [Entitic mass] 31.5 pg 25.2 - 33.5 pg [employer] Phone: MCHC (RBC) [Mass/Vol] 32.9 g/dL 28.4 - 34.8 g/dL [employer] Phone: MCV (RBC) [Entitic vol] 95.8 fL 82.6 - 102.9 fL [employer] Work Phone: Monocytes/100 WBC (Bld) 9 % 3 - 12 % [employer] Work Phone: NRBC Automated 0.0 0.0 per 100 WBC [employer] Phone: Platelet distribution width (Bld) [Ratio] 12.8 % 11.8 - 14.4 % [employer] Phone: Platelet Estimate NOT REPORTED [employer] Phone: Platelet mean volume (Bld) [Entitic vol] 9.7 fL 8.1 - 13.5 fL [employer] Phone: Platelets (Bld) [#/Vol] 211 10*3/uL [employer] Phone: RBC (Bld) [#/Vol] 3.36 10*6/uL Low 4.21 - 5.77 m/uL [employer] Phone: RBC (Bld) [#/Vol] NOT REPORTED [employer] Phone: Segmented neutrophils/100 WBC (Bld) 76 % High 36 - 65 % [employer] Phone: Segs Absolute 6.42 [employer] Work Phone: WBC (Bld) [#/Vol] 8.4 10*3/uL [employer] Phone: WBC (Bld) [#/Vol] NOT REPORTED [employer] Phone: [employer] Work Phone: CBC with Diffon 08-21-2020 Abs. Basophil 0.03 k/uL Normal 0.00-0.20 [facility] Comment on above: Performed By: #### C DP #### [facility] [address] [place] [address] Book Mender: Preet Castillo MD Abs.Imm.Granulocyte 0.03 k/uL Normal 0.00-0.30 [facility] Comment on above: Performed By: #### C DP #### [facility] [place] [address] Book Mender: Preet Castillo MD Abs.Neutrophil (Seg) 6.42 k/uL Normal 1.50-8.10 [facility] Comment on above: Performed By: #### C DP #### [facility] [address] [place] [address] Book Mender: Preet Castillo MD Basophils/100 WBC (Bld) 0 % Normal 0-2 [facility] Comment on above: Performed By: #### C DP #### [facility] [address] [place] [address]. [place] [address] Book Mender: Preet Castillo MD Eosinophils (Bld) [#/Vol] 0.04 10*3/uL Normal 0.00-0.44 [facility] Comment on above: Performed By: #### C DP #### [facility] [address] [place] [address]. [place] [address] Book Mender: Preet Castillo MD Eosinophils/100 WBC (Bld) 1 % Normal 1-4 [facility] Comment on above: Performed By: #### C DP #### [facility] [address] [place] [address] Book Mender: Preet Castillo MD Erythrocyte distribution width (RBC) [Ratio] 12.8 % Normal 11.8-14.4 [facility] Comment on above: Performed By: #### C DP #### [facility] [address] [place] [address]. [place] [address] Book Mender: Preet Castillo MD Hematocrit (Bld) [Volume fraction] 32.2 % Low 40.7-50.3 [facility] Comment on above: Performed By: #### C DP #### [facility] [place] [address] Book Mender: Preet Castillo MD Hemoglobin (Bld) [Mass/Vol] 10.6 g/dL Low 13.0-17.0 [facility] Comment on above: Performed By: #### C DP #### [facility] [address] [place] [address] Book Mender: Preet Castillo MD Immature granulocytes/100 WBC (Bld) 0 % Normal 0 [facility] Comment on above: Performed By: #### C DP #### [facility] [address] [place] [address]. [place] [address] Book Mender: Preet Castillo MD Lymphocytes (Bld) [#/Vol] 1.16 10*3/uL Normal 1.10-3.70 [facility] Comment on above: Performed By: #### C DP #### [facility] [address] [place] [address]. [place] [address] Book Mender: Preet Castillo MD Lymphocytes/100 WBC (Bld) 14 % Low 24-43 [facility] Comment on above: Performed By: #### C DP #### [facility] [address] [place] [address] Book Mender: Preet Castillo MD MCH (RBC) [Entitic mass] 31.5 pg Normal 25.2-33.5 [facility] Comment on above: Performed By: #### C DP #### [facility] [address] [place] [address]. [place] [address] Book Mender: Preet Castillo MD MCHC (RBC) [Mass/Vol] 32.9 g/dL Normal 28.4-34.8 [facility] Comment on above: Performed By: #### C DP #### [facility] [address] [place] [address] Book Mender: Preet Castillo MD MCV (RBC) [Entitic vol] 95.8 fL Normal 82.6-102.9 [facility] Comment on above: Performed By: #### C DP #### [facility] [address] [place] [address] Book Mender: Preet Castillo MD Monocytes (Bld) [#/Vol] 0.76 10*3/uL Normal 0.10-1.20 [facility] Comment on above: Performed By: #### C DP #### [facility] [address] [place] [address] Book Mender: Preet Castillo MD Monocytes/100 WBC (Bld) 9 % Normal 3-12 [facility] Comment on above: Performed By: #### C DP #### [facility] [address] [place] [address] Book Mender: Preet Castillo MD Neutrophil (Seg) 76 % High 36-65 [facility] Comment on above: Performed By: #### C DP #### [facility] [address] [place] [address] Book Mender: Preet Castillo MD NRBC Automated 0.0 per 100 WBC Normal 0.0 [facility] Comment on above: Performed By: #### C DP #### [facility] [address] [place] [address] Book Mender: Preet Castillo MD Platelet mean volume (Bld) [Entitic vol] 9.7 fL Normal 8.1-13.5 [facility] Comment on above: Performed By: #### C DP #### [facility] [address] [facility] [place] [address] Book Mender: Preet Castillo MD Platelets (Bld) [#/Vol] 211 10*3/uL Normal 138-453 [facility] Comment on above: Performed By: #### C DP #### [facility] [address] [facility] [place] [address] Book Mender: Preet Castillo MD RBC (Bld) [#/Vol] 3.36 10*6/uL Low 4.21-5.77 [facility] Comment on above: Performed By: #### C DP #### [facility] [address] [place] [address]. [place] [address] Book Mender: Preet Castillo MD WBC (Bld) [#/Vol] 8.4 10*3/uL Normal 3.5-11.3 [facility] Comment on above: Performed By: #### C DP #### [facility] [address] [place] [address]. [place] [address] Book Mender: Preet Castillo MD Auto Diff Performed NOT REPORTED Normal [facility] Comment on above: Performed By: #### C DP #### [facility] [address] [place] [address]. [place] [address] Book Mender: Preet Castillo MD Platelet Estimate NOT REPORTED Normal [facility] Comment on above: Performed By: #### C DP #### [facility] [address] [place] [address]. [place] [address] Book Mender: Preet Castillo MD RBC morphology finding Nom (Bld) NOT REPORTED Normal [facility] Comment on above: Performed By: #### C DP #### [facility] [address] [place] [address] [phone] Book Mender: Preet Castillo MD WBC Morphology NOT REPORTED Normal [facility] Comment on above: Performed By: #### C DP #### [facility] [address] [place] [address] [phone] Book Mender: Preet Castillo MD PROTIME-INROrdered By: Elisa Ferraro on 08-10-2020 INR Coag (Bld) [Relative time] 1.0 {INR} [facility] Work Phone: Comment on above: Non-therapeutic Range: INR = 0.9-1.2 Therapeutic Range: Moderate Anticoagulant Intensity: INR = 2.0-3.0 High Anticoagulant Intensity: INR = 2.5-3.5 PT Coag (PPP) [Time] 13.5 s [facility] [employer] Phone: [facility] [employer] Phone: PTon 08-10-2020 INR Coag (PPP) [Relative time] 1.0 {INR} Normal [facility] Comment on above: Result Comment: Non-therapeutic Range: INR = 0.9-1.2 Therapeutic Range: Moderate Anticoagulant Intensity: INR = 2.0-3.0 High Anticoagulant Intensity: INR = 2.5-3.5 Performed By: #### P T #### [facility] [address] [place] [address] Book Mender: Preet Castillo MD PT Coag (PPP) [Time] 13.5 s Normal 11.5-14.2 [facility] Comment on above: Performed By: #### P T #### [facility] [address] [place] [address] Book Mender: Preet Castillo MD PTon 08-09-2020 INR Coag (PPP) [Relative time] 1.0 {INR} Normal [facility] Comment on above: Result Comment: Non-therapeutic Range: INR = 0.9-1.2 Therapeutic Range: Moderate Anticoagulant Intensity: INR = 2.0-3.0 High Anticoagulant Intensity: INR = 2.5-3.5 Performed By: #### P T, PLT #### [facility] [address] [facility]. [place], [place] [phone] Book Mender: Preet Castillo MD PT Coag (PPP) [Time] 13.4 s Normal 11.5-14.2 [facility] Comment on above: Performed By: #### P T, PLT #### [facility] [address] [facility]. [place], [place] [phone] Book Mender: Preet Castillo MD Platelet Counton 08-09-2020 Platelets (Bld) [#/Vol] 144 10*3/uL Normal 138-453 [facility] Comment on above: Performed By: #### P T, PLT #### [facility] [address] [facility] [place], [place] [phone] Book Mender: Preet Castillo MD Platelet CountOrdered By: Drake Ferraro on 08-09-2020 Platelets (Bld) [#/Vol] 144 10*3/uL [facility] [employer] Phone: [facility] Phone: Protime-INROrdered By: Elisa Ferraro on 08-09-2020 INR Coag (Bld) [Relative time] 1.0 {INR} [facility] [employer] Phone: Comment on above: Non-therapeutic Range: INR = 0.9-1.2 Therapeutic Range: Moderate Anticoagulant Intensity: INR = 2.0-3.0 High Anticoagulant Intensity: INR = 2.5-3.5 PT Coag (PPP) [Time] 13.4 s [facility] [employer] Phone: [facility] Phone: XR KNEE RIGHT (1-2 VIEWS)on 08-09-2020 [...] Bradley Harper MD 08/09/20 Final result Normal [facility] XR KNEE RIGHT (1-2 VIEWS)Ord ered By: Elisa Ferraro on 08-09-2020 Recent postop change s right TKA [employer] Phone: EXAMINATION: TWO XRA Y VIEWS OF [...] are related to the recent surgical procedure. [employer] Phone: Golden, [employer] Incoming R adiant Results From [employer] - 08/09/2020 3:43 PM EDT EXAMINATION: TWO [...] procedure. IMPRESSION: Recent postop changes right TKA [employer] Phone: [employer] Phone: EKG 12 LeadOrdered By: Elisa Ferraro on 07-16-2020 Atrial Rate 62 BPM [employer] Work Phone: P [place] 57 degrees [facility] Phone: P-R Interval 170 ms [employer] Phone: Q-T Interval 414 ms [employer] Phone: QRS Duration 74 ms [facility] Phone: QTc Calculation (Bazett) 420 ms [employer] Phone: R [place] 2 degrees [employer] Phone: T [place] 23 degrees [employer] Phone: Ventricular Rate 62 BPM [employer] Work Phone: Normal sinus rhythm Normal ECG No previous ECGs available [employer] Phone: Golden, [employer] Incoming E kg Results From [employer] - 07/16/2020 8:09 AM EDT Normal sinus rhythm Normal ECG No previous ECGs available [employer] Phone: [employer] Phone: MRSA DNA Probe, NasalOrdered By: Elisa Ferraro on 07-16-2020 Specimen Description .NASAL SWAB [facility] [employer] Phone: [employer] Phone: MRSA, DNA, NasalOrdered By: Elisa Ferraro on 07-16-2020 MRSA, DNA, Nasal NEGATIVE: MRSA DNA n ot detected by nucleic acid amplification. Normal NMRSAA [employer] Phone: Comment on above: Results should be [...] infections. Performed By: #### M RSANO #### [facility] [address] [place], [place] [id number] Book Mender: Preet Castillo MD [facility] [address] [place], [place] [phone] Book Mender: Jean Mo MD APTArturo 07-15-2020 aPTT Coag (Bld) [Time] 32.6 s Normal 23.9-33.8 [facility] Comment on above: Result Comment: IV Heparin Therapy Range: 62.0-94.0 Performed By: #### C BC, BMPX #### [facility] [address] [place], [place] [phone] Book Mender: Preet Castillo MD APTTOrdered By: Elisa ojeda on 07-15-2020 aPTT Coag (Bld) [Time] 32.6 s [facility] Work Phone: Comment on above: IV Heparin Therapy Range: 62.0-94.0 [facility] Work Phone: CBC Auto DifferentialOrdered By: Elisa Ferraro on 07-15-2020 Absolute Eos # 0.35 [facility] Work Phone: Absolute Immature Granulocyte 0.01 [facility] Work Phone: Absolute Lymph # 1.38 [facility] Work Phone: Absolute [place] # 0.73 [facility] Work Phone: Basophils (Bld) [#/Vol] 0.05 10*3/uL [facility] Work Phone: Basophils/100 WBC (Bld) 1 % 0 - 2 % [employer] Phone: Differential Type NOT REPORTED [employer] Phone: Eosinophils/100 WBC (Bld) 6 % High 1 - 4 % [employer] Phone: Hematocrit (Bld) [Volume fraction] 40.9 % 40.7 - 50.3 % [employer] Phone: Hemoglobin.gastrointe stinal spec 1 Ql (Stl) 14.1 g/dL 13.0 - 17.0 g/dL [employer] Phone: Immature granulocytes/100 WBC (Bld) 0 % 0 [employer] Phone: Interpretation and review of laboratory results Abnormal [employer] Phone: Lymphocytes/100 WBC (Bld) 24 % 24 - 43 % [employer] Phone: MCH (RBC) [Entitic mass] 32.1 pg 25.2 - 33.5 pg [employer] Phone: MCHC (RBC) [Mass/Vol] 34.5 g/dL 28.4 - 34.8 g/dL [employer] Phone: MCV (RBC) [Entitic vol] 93.2 fL 82.6 - 102.9 fL [employer] Phone: Monocytes/100 WBC (Bld) 13 % High 3 - 12 % [employer] Phone: NRBC Automated 0.0 0.0 per 100 WBC [employer] Phone: Platelet distribution width (Bld) [Ratio] 12.4 % 11.8 - 14.4 % [employer] Phone: Platelet Estimate NOT REPORTED [employer] Phone: Platelet mean volume (Bld) [Entitic vol] 10.4 fL 8.1 - 13.5 fL [employer] Work Phone: Platelets (Bld) [#/Vol] 135 10*3/uL Low [employer] Phone: RBC (Bld) [#/Vol] 4.39 10*6/uL 4.21 - 5.77 m/uL [employer] Work Phone: RBC (Bld) [#/Vol] NOT REPORTED [employer] Work Phone: Segmented neutrophils/100 WBC (Bld) 56 % 36 - 65 % [employer] Work Phone: Segs Absolute 3.30 [employer] Work Phone: WBC (Bld) [#/Vol] 5.8 10*3/uL [employer] Phone: WBC (Bld) [#/Vol] NOT REPORTED [employer] Phone: [employer] Phone: CBC with Diffon 07-15-2020 Abs. Basophil 0.05 k/uL Normal 0.00-0.20 [facility] Comment on above: Performed By: #### C NIKOLAI, BMPX #### [facility] [place] [address] Book Mender: Preet Castillo MD Abs.Imm.Granulocyte 0.01 k/uL Normal 0.00-0.30 [facility] Comment on above: Performed By: #### C NIKOLAI, BMPX #### [facility] [address] [place] [address] Book Mender: Preet Castillo MD Abs.Neutrophil (Seg) 3.30 k/uL Normal 1.50-8.10 [facility] Comment on above: Performed By: #### C NIKOLAI, BMPX #### [facility] [place] [address] Book Mender: Preet Castillo MD Basophils/100 WBC (Bld) 1 % Normal 0-2 [facility] Comment on above: Performed By: #### C BC, BMPX #### [facility] [address] [facility] [place] [address] Book Mender: Preet Castillo MD Eosinophils (Bld) [#/Vol] 0.35 10*3/uL Normal 0.00-0.44 [facility] Comment on above: Performed By: #### C BC, BMPX #### [facility] [address] [place] [address]. [place] [address] Book Mender: Preet Castillo MD Eosinophils/100 WBC (Bld) 6 % High 1-4 [facility] Comment on above: Performed By: #### C BC, BMPX #### [facility] [address] [place] [address] Book Mender: Preet Castillo MD Erythrocyte distribution width (RBC) [Ratio] 12.4 % Normal 11.8-14.4 [facility] Comment on above: Performed By: #### C BC, BMPX #### [facility] [address] [place] [address]. [place] [address] Book Mender: Preet Castillo MD Hematocrit (Bld) [Volume fraction] 40.9 % Normal 40.7-50.3 [facility] Comment on above: Performed By: #### C BC, BMPX #### [facility] [address] [place] [address]. [place] [address] Book Mender: Preet Castillo MD Hemoglobin (Bld) [Mass/Vol] 14.1 g/dL Normal 13.0-17.0 [facility] Comment on above: Performed By: #### C BC, BMPX #### [facility] [address] [facility] [place] [address] Book Mender: Preet Castillo MD Immature granulocytes/100 WBC (Bld) 0 % Normal 0 [facility] Comment on above: Performed By: #### C BC, BMPX #### [facility] [place] [address] Book Mender: Preet Castillo MD Lymphocytes (Bld) [#/Vol] 1.38 10*3/uL Normal 1.10-3.70 [facility] Comment on above: Performed By: #### C BC, BMPX #### [facility] [address] [place] [address]. [place] [address] Book Mender: Preet Castillo MD Lymphocytes/100 WBC (Bld) 24 % Normal 24-43 [facility] Comment on above: Performed By: #### C BC, BMPX #### [facility] [address] [place] [address]. [place] [address] Book Mender: Preet Castillo MD MCH (RBC) [Entitic mass] 32.1 pg Normal 25.2-33.5 [facility] Comment on above: Performed By: #### C NIKOLAI, BMPX #### [facility] [address] [place] [address]. [place] [address] Book Mender: Preet Castillo MD MCHC (RBC) [Mass/Vol] 34.5 g/dL Normal 28.4-34.8 [facility] Comment on above: Performed By: #### C BC, BMPX #### [facility] [address] [place] [address]. [place] [address] Book Mender: Preet Castillo MD MCV (RBC) [Entitic vol] 93.2 fL Normal 82.6-102.9 [facility] Comment on above: Performed By: #### C BC, BMPX #### [facility] [address] [place] [address] Book Mender: Preet Castillo MD Monocytes (Bld) [#/Vol] 0.73 10*3/uL Normal 0.10-1.20 [facility] Comment on above: Performed By: #### C BC, BMPX #### [facility] [address] [facility] [place] [address] Book Mender: Preet Castillo MD Monocytes/100 WBC (Bld) 13 % High 3-12 [facility] Comment on above: Performed By: #### C BC, BMPX #### [facility] [place] [address] Book Mender: Preet Castillo MD Neutrophil (Seg) 56 % Normal 36-65 [facility] Comment on above: Performed By: #### C BC, BMPX #### [facility] [place] [address] Book Mender: Preet Castillo MD NRBC Automated 0.0 per 100 WBC Normal 0.0 [facility] Comment on above: Performed By: #### C BC, BMPX #### [facility] [place] [address] Book Mender: Preet Castillo MD Platelet mean volume (Bld) [Entitic vol] 10.4 fL Normal 8.1-13.5 [facility] Comment on above: Performed By: #### C BC, BMPX #### [facility] [place] [address] Book Mender: Preet Castillo MD Platelets (Bld) [#/Vol] 135 10*3/uL Low 138-453 [facility] Comment on above: Performed By: #### C BC, BMPX #### [facility] [address] [facility] [place] [address] Book Mender: Preet Castillo MD RBC (Bld) [#/Vol] 4.39 10*6/uL Normal 4.21-5.77 [facility] Comment on above: Performed By: #### C BC, BMPX #### [facility] [address] [facility] [place] [address] Book Mender: Preet Castillo MD WBC (Bld) [#/Vol] 5.8 10*3/uL Normal 3.5-11.3 [facility] Comment on above: Performed By: #### C BC, BMPX #### [facility] [address] [place] [address]. [place] [address] Book Mender: Preet Castillo MD Auto Diff Performed NOT REPORTED Normal [facility] Comment on above: Performed By: #### C BC, BMPX #### [facility] [address] [place] [address] Book Mender: Preet Castillo MD Platelet Estimate NOT REPORTED Normal [facility] Comment on above: Performed By: #### C BC, BMPX #### [facility] [place] [address] Book Mender: Preet Castillo MD RBC morphology finding Nom (Bld) NOT REPORTED Normal [facility] Comment on above: Performed By: #### C BC, BMPX #### [facility] [address] [place] [address]. [place] [address] Book Mender: Preet Castillo MD WBC Morphology NOT REPORTED Normal [facility] Comment on above: Performed By: #### C BC, BMPX #### [facility] [address] [place] [address] Book Mender: Preet Castillo MD Comp Metabolic Profon 2020 (cont.) Normal [facility] Comment on above: Result Comment: Aver age GFR for 70 or more years old: 75 mL/min/1.73sq m Chronic Kidney Disease: <60 mL/min/1.73sq m Kidney failure: <15 mL/min/1.73sq m eGFR calculated using average adult body mass. Additional eGFR calculator available at: http://www.[employer].PubMatic/multiple_crcl_2011.htm Performed By: #### C BC, BMPX #### [facility] [address] [place] [address] Book Mender: Preet Castillo MD Alkaline Phos 71 U/L Normal 40-129 [facility] Comment on above: Performed By: #### C BC, BMPX #### [facility] [address] [place] [address] Book Mender: Preet Castillo MD BUN/CRE Ratio 41 High 9-20 [facility] Comment on above: Performed By: #### C BC, BMPX #### [facility] [address] [place] [address] Book Mender: Preet Castillo MD GFR, Amer >60 Normal >60 [facility] Comment on above: Performed By: #### C BC, BMPX #### [facility] [address] [place] [address] Book Mender: Preet Castillo MD GFR,non Amer >60 Normal >60 [facility] Comment on above: Performed By: #### C BC, BMPX #### [facility] [address] [place] [address] Book Mender: Preet Castillo MD Protein [Mass/Vol] 6.7 g/dL Normal 6.4-8.3 [facility] Comment on above: Performed By: #### C BC, BMPX #### [facility] [address] [place] [address] Book Mender: Preet Castillo MD Urea nitrogen [Mass/Vol] 26 mg/dL High 8-23 [facility] Comment on above: Performed By: #### C BC, BMPX #### [facility] [address] [place] [address] Book Mender: Preet Castillo MD Albumin/Glob Ratio NOT REPORTED Normal 1.0-2.5 [facility] Comment on above: Performed By: #### C BC, BMPX #### [facility] [address] [place] [address] Book Mender: Preet Castillo MD Staging: NOT REPORTED Normal [facility] Comment on above: Performed By: #### C BC, BMPX #### [facility] [address] [place] [address] Book Mender: Preet Castillo MD Comp Metabolic ProfOrdered B y: Elisa Jasmine on 07-15-2020 Albumin [Mass/Vol] 4.1 g/dL Normal 3.5-5.2 [facility] Work Phone: Comment on above: Performed By: #### C BC, BMPX #### [facility] [address] [place] [address] Book Mender: Preet Castillo MD ALT [Catalytic activity/Vol] 12 U/L Normal 5-41 [facility] Work Phone: Comment on above: Performed By: #### C BC, BMPX #### [facility] [address] [place] [address] Book Mender: Preet Castillo MD Anion gap [Moles/Vol] 13 mmol/L Normal 9-17 [facility] [employer] Work Phone: Comment on above: Performed By: #### C BC, BMPX #### [facility] [address] [place] [address] Book Mender: Preet Castillo MD AST [Catalytic activity/Vol] 16 U/L Normal <40 [facility] [employer] Work Phone: Comment on above: Performed By: #### C NIKOLAI, BMPX #### [facility] [address] [place] [address] Book Mender: Preet Castillo MD Bilirubin [Mass/Vol] 0.55 mg/dL Normal 0.3-1.2 [facility] [employer] Work Phone: Comment on above: Performed By: #### Lucretia MENCHACA, BMPX #### [facility] [address] [place] [address] Book Mender: Preet Castillo MD Calcium [Mass/Vol] 8.7 mg/dL Normal 8.6-10.4 [facility] [employer] Phone: Comment on above: Performed By: #### C NIKOLAI, BMPX #### [facility] [address] [place] [address] Book Mender: Preet Castillo MD Chloride [Moles/Vol] 105 mmol/L Normal 98-107 [facility] [employer] Work Phone: Comment on above: Performed By: #### C BC, BMPX #### [facility] [address] [place] [address] Book Mender: Preet Castillo MD CO2 [Moles/Vol] 21 mmol/L Normal 20-31 [facility] Work Phone: Comment on above: Performed By: #### C BC, BMPX #### [facility] [address] [place] [address] Book Mender: Preet Csatillo MD Creatinine [Mass/Vol] 0.64 mg/dL Low 0.70-1.20 [facility] [employer] Work Phone: Comment on above: Performed By: #### C NIKOLAI, BMPX #### [facility] [address] [place] [address] Book Mender: Preet Castillo MD Glucose [Mass/Vol] 88 mg/dL Normal 70-99 [facility] Work Phone: Comment on above: Performed By: #### C NIKOLAI, BMPX #### [facility] [address] [place] [address] Book Mender: Preet Castillo MD Potassium [Moles/Vol] 4.7 mmol/L Normal 3.7-5.3 [facility] [employer] Work Phone: Comment on above: Performed By: #### Lucretia MENCHACA, BMPX #### [facility] [address] [place] [address] Book Mender: Preet Castillo MD Sodium [Moles/Vol] 139 mmol/L Normal 135-144 [facility] [employer] Work Phone: Comment on above: Performed By: #### C NIKOLAI, BMPX #### [facility] [address] [place] [address] Book Mender: Preet Castillo MD Comprehensive Metabolic Pane lOrdered By: Elisa Ferraro on 07-15-2020 Albumin/Globulin Ratio NOT REPORTED [facility] Work Phone: ALP (Bld) [Catalytic activity/Vol] 71 U/L 40 - 129 U/L [employer] Phone: Free PSA/Total PSA [Mass fraction] 6.7 g/dL 6.4 - 8.3 g/dL [employer] Phone: GFR >60 >60 mL/min [employer] Phone: GFR Non- >60 >60 mL/min [employer] Phone: GFR/1.73 sq M.predicted MDRD (S/P/Bld) [Vol rate/Area] [employer] Phone: Comment on above: Average GFR for 70 o r more years old: 75 mL/min/1.73sq m Chronic Kidney Disease: <60 mL/min/1.73sq m Kidney failure: <15 mL/min/1.73sq m eGFR calculated using average adult body mass. Additional eGFR calculator available at: http://www.[employer]abol[employer]x/multiple_crcl_2012.htm GFR/1.73 sq M.predicted MDRD (S/P/Bld) [Vol rate/Area] NOT REPORTED [employer] Phone: Interpretation and review of laboratory results Abnormal [employer] Phone: Urea nitrogen (BldV) [Mass/Vol] 26 mg/dL High 8 - 23 mg/dL [employer] Phone: Urea nitrogen/Creatinine (Bld) [Mass ratio] 41 High [employer] Phone: [employer] Phone: MRSA, DNA, Nasalon 1 Specimen Description .NASAL SWAB Normal [facility] Comment on above: Performed By: #### M RSANO #### [facility] [address] [place] [address] Book Mender: Preet Castillo MD [facility] [employer] [address] [place] [address] Book Mender: Jean Mo MD PTon 07-15-2020 INR Coag (PPP) [Relative time] 1.8 {INR} Normal [facility] Comment on above: Result Comment: Non-therapeutic Range: INR = 0.9-1.2 Therapeutic Range: Moderate Anticoagulant Intensity: INR = 2.0-3.0 High Anticoagulant Intensity: INR = 2.5-3.5 Performed By: #### C BC, BMPX #### [facility] [address], [place] [id number] Book Mender: Preet Castillo MD PT Coag (PPP) [Time] 20.8 s High 11.5-14.2 [facility] Comment on above: Performed By: #### C BC, BMPX #### [facility] [address] [facility] [place], [place] [id number] Book Mender: Preet Castillo MD Protime-INROrdered By: Elisa Ferraro on 07-15-2020 INR Coag (Bld) [Relative time] 1.8 {INR} [facility] [employer] Phone: Comment on above: Non-therapeutic Range: INR = 0.9-1.2 Therapeutic Range: Moderate Anticoagulant Intensity: INR = 2.0-3.0 High Anticoagulant Intensity: INR = 2.5-3.5 Interpretation and review of laboratory results Abnormal [facility] [employer] Phone: PT Coag (PPP) [Time] 20.8 s High [facility] [employer] Phone: [facility] Work Phone: Sedimentation Rateon 021 Sedimentation Rate 11 mm Normal 0-20 [facility] Comment on above: Performed By: #### C BC, BMPX #### [facility] [address] [facility] [place], [place] [id number] Book Mender: Preet Castillo MD Sedimentation RateOrdered By : Elisa Ferraro on 07-15-2020 Sed Rate 11 mm 0 - 20 mm [facility] Work Phone: [facility] Work Phone: TYPE AND SCREENOrdered By: Xiang Pedro on 07-15-2020 ABO/Rh Positive [facility] Work Phone: Arm Band Number [id number] [facility] Work Phone: Expiration Date 08/12/2020,2359 [facility] [employer] Work Phone: [facility] Work Phone: Type + Screenon 07-15-2020 Type + Screen Sample Expiration 08/12/2020,2359 Arm Band Number [id number] ABO/Rh(D) A POSITIVE Antibody Screen NEGATIVE Normal [facility] Comment on above: Performed By: #### T YS #### [facility] [address] [place] [address] Book Mender: Preet Castillo MD UA w/Reflex Cultureon 2020 Bilirubin, SemiQt,Ur Negative Normal NEG [facility] Comment on above: Performed By: #### U AX #### [facility] [address] [place] [address] Book Mender: Preet Castillo MD Blood, Urine Negative Normal NEG [facility] Comment on above: Performed By: #### U AX #### [facility] [address] [place] [address] Book Mender: Preet Castillo MD Clarity (U) CLEAR Normal CLEAR [facility] Comment on above: Performed By: #### U AX #### [facility] [address] [place], [place] [id number] Book Mender: Preet Castillo MD Color (U) YELLOW Normal YEL [facility] Comment on above: Performed By: #### U AX #### [facility] [address] [place] [address] Book Mender: Preet Castillo MD Glucose Ql (U) Negative Normal NEG [facility] Comment on above: Performed By: #### U AX #### [facility] [address] [place] [address] Book Mender: Preet Castillo MD Ketones Ql (U) Negative Normal NEG [facility] Comment on above: Performed By: #### U AX #### [facility] [address] [facility] [place] [address] Book Mender: Preet Castillo MD Leukocyte esterase Test strip Ql (U) Negative Normal NEG [facility] Comment on above: Performed By: #### U AX #### [facility] [address] [facility] [place] [address] Book Mender: Preet Castillo MD Nitrite,Ur Negative Normal NEG [facility] Comment on above: Performed By: #### U AX #### [facility] [address] [facility] [place] [address] Book Mender: Preet Castillo MD PH,Ur 5.5 Normal 5.0-8.0 [facility] Comment on above: Performed By: #### U AX #### [facility] [address] [facility] [place] [address] Book Mender: Preet Castillo MD Protein Ql (U) Negative Normal NEG [facility] Comment on above: Performed By: #### U AX #### [facility] [address] [place] [address] Book Mender: Preet Castillo MD Spec. [place],Ur 1.025 Normal 1.005-1.03 0 [facility] Comment on above: Performed By: #### U AX #### [facility] [address] [facility] [place] [address] Book Mender: Preet Castillo MD Urobilinogen,Ur Normal Normal NORM [facility] Comment on above: Performed By: #### U AX #### [facility] [place] [address] Book Mender: Preet Castillo MD Comment NOT REPORTED Normal [facility] Comment on above: Performed By: #### U AX #### [facility] [address] [place] [address]. [place] [address] Book Mender: Preet Castillo MD Urinalysis Reflex to Culture Ordered By: Elisa Ferraro on 07-15-2020 Bilirubin Urine Negative NEGATIVE [facility] Work Phone: Color, UA YELLOW YELLOW [facility] Work Phone: Glucose, Ur Negative NEGATIVE [facility] Work Phone: Ketones Ql (U) Negative NEGATIVE [facility] Work Phone: Leukocyte esterase Test strip Ql (U) Negative NEGATIVE [facility] Work Phone: Nitrite, Urine Negative NEGATIVE [facility] Work Phone: pH, UA 5.5 [facility] Work Phone: Protein, UA Negative NEGATIVE [facility] Work Phone: Specific [place], UA 1.025 [facility] [employer] Work Phone: Turbidity UA CLEAR CLEAR [facility] Work Phone: Urinalysis Comments NOT REPORTED [facility] [employer] Work Phone: Urine Hgb Negative NEGATIVE [facility] Work Phone: Urobilinogen, Urine Normal Normal [employer] Phone: [employer] Phone: OVon 08-13-2017 CNOV Office Visit (VASSFT) YANELIS NORIEGA ([id number]) 1945 [facility] Provider Department08/13/17 11:45 AM CURT CHOWDHURY During your visit today, we recorded the following information about you: Pulse Respiration Blood pressure Weight 66/minute 16/minute 123/70 80.7 kg Height 1.689 Cameron Chowdhury MD 08/13/2017 12:05 PM [facility] Department of Cardiovascular MedicineOUTPATIENT VISIT DATE August 13, 2017OUTPATIENT VISIT TYPENEWPRIMARY CARE PHYSICIAN:Blu Velez MD ([facility])[address] [place], [place] [address]Akzxm: [phone]: [phone] PHYSICIANBeabhilash Velez MD ([facility])[address] [facility] [address]SGJYO COMPLAINT:No chief complaint on file.HISTORY OF PRESENT ILLNESS:Yanelis Noriega was referred for consultation by Dr. Velez. Opinions andrecommendations in this consultation will be transmitted back to the referringphysician by Epic notes or via mail.Mr. 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 May undergo furtherevaluation with hematology for further evaluation.Consider changing coumadin to NOAC to ease anticoagulation.He may follow up as needed.HAILEE Majoreferring Provider: BLU VELEZ [[id number]]Allergies As of Date: 08/13/2017 Noted Allergy ReactionIODINE [...] to improve.Follow-up and Disposition History RecordedEncounter Number: [id number] Status:Closed by CURT CHOWDHURY MD on 08/13/17 [facility] PROGRESSon 08-13-2017 PROGRESS HNO ID: [id number] thor: Curt Benson: (none)Author Type: PhysicianType: Progress NotesFiled: 08/13/2017 12:05 PMNote Text:[facility] Department of Cardiovascular MedicineOUTPATIENT VISIT DATE August 13, 2017OUTPATIENT VISIT TYPENEWPRIMARY CARE PHYSICIAN:Blu Velez MD ([facility])[address] [place], [place] [address]Veamj: [phone]: [phone] PHYSICIANBenmary Velez MD ([facility])[address] [facility] [place]Dialog [place] [address]WLRXH COMPLAINT:No chief complaint on file.HISTORY OF PRESENT ILLNESS:Yanelis Noriega was referred for consultation by Dr. Velez. Opinions andrecommendations in this consultation will be transmitted back to thereferring physician by [facility] notes or via mail.Mr. Noriega is a [...] follow up as needed.Curt Chowdhury MD Normal [facility] Vital Signs Date Time Vital Sign Value Performing Clinician Facility 08-04-2024 13:33-0400 Body height 170.18 cm [facility] 08-04-2024 13:33-0400 Body mass index (BMI) [Ratio] 28 kg/m2 [facility] 08-04-2024 13:33-0400 Body weight 81.19 kg [facility] 08-04-2024 13:33-0400 Diastolic blood pressure 65 mm[Hg] [facility] 08-04-2024 13:33-0400 Heart rate 62 /min [facility] 08-04-2024 13:33-0400 Respiratory rate 12 /min [facility] 08-04-2024 13:33-0400 Systolic blood pressure 107 mm[Hg] [facility] 07-02-2024 10:46-0400 Body height 171.5 cm Teo Johnson MD Work Phone: [facility] 07-02-2024 10:46-0400 Body mass index (BMI) [Ratio] 27.96 kg/m2 Teo Johnson MD Work Phone: [facility] 07-02-2024 10:46-0400 Body weight 82.19 kg Teo Johnson MD Work Phone: [facility] 07-02-2024 10:46-0400 Diastolic blood pressure 66 mm[Hg] Teo Johnson MD Work Phone: [facility] 07-02-2024 10:46-0400 Heart rate 68 /min Teo Johnson MD Work Phone: [facility] 07-02-2024 10:46-0400 Systolic blood pressure 118 mm[Hg] Teo Johnson MD Work Phone: [facility] 05-05-2024 16:00-0400 Diastolic blood pressure 67 mm[Hg] Blu Ball DO Work Phone: [facility] 05-05-2024 16:00-0400 Heart rate 72 /min Blu Ball DO Work Phone: [facility] 05-05-2024 16:00-0400 Respiratory rate 16 /min Blu Ball DO Work Phone: [facility] 05-05-2024 16:00-0400 SaO2% (BldA) [Mass fraction] 97 % Blu Ball DO Work Phone: [facility] 05-05-2024 16:00-0400 Systolic blood pressure 104 mm[Hg] Blu Ball DO Work Phone: [facility] 05-05-2024 09:06-0400 Body height 172.72 cm Blu Ball DO Work Phone: [facility] 05-05-2024 09:06-0400 Body temperature 98 [degF] Blu Ball DO Work Phone: [facility] 05-05-2024 09:06-0400 Body weight 82 kg Blu Ball DO Work Phone: [facility] 05-01-2024 11:25-0500 Body height 172.7 cm Ashutosh Miller DPM Work Phone: [facility] 05-01-2024 11:25-0500 Body mass index (BMI) [Ratio] 27.37 kg/m2 Ashutosh Miller DPM Work Phone: [facility] 05-01-2024 11:25-0500 Body weight 81.65 kg Ashutosh Miller DPM Work Phone: [facility] 05-01-2024 11:25-0500 Respiratory rate 18 /min Ashutosh Miller DPM Work Phone: [facility] 04-08-2024 10:12-0500 Diastolic blood pressure 86 mm[Hg] Sal[place] 1 [facility] 04-08-2024 10:12-0500 Heart rate 63 /min Salena 1 [facility] 04-08-2024 10:12-0500 Systolic blood pressure 128 mm[Hg] Salena 1 [facility] 03-26-2024 11:36-0500 Body height 171.5 cm Teo Johnson MD Work Phone: [facility] 03-26-2024 11:36-0500 Body mass index (BMI) [Ratio] 27.93 kg/m2 Teo Johnson MD Work Phone: [facility] 03-26-2024 11:36-0500 Body weight 82.1 kg Teo Johnson MD Work Phone: [facility] 03-26-2024 11:36-0500 Diastolic blood pressure 60 mm[Hg] Teo Johnson MD Work Phone: [facility] 03-26-2024 11:36-0500 Heart rate 72 /min Teo Johnson MD Work Phone: [facility] 03-26-2024 11:36-0500 Systolic blood pressure 104 mm[Hg] Teo Johnson MD Work Phone: [facility] 02-21-2024 11:45-0500 Body height 172.7 cm Ashutosh Miller DPM Work Phone: [facility] 02-21-2024 11:45-0500 Body mass index (BMI) [Ratio] 27.37 kg/m2 Ashutosh Miller DPM Work Phone: [facility] 02-21-2024 11:45-0500 Body weight 81.65 kg Ashutosh Miller DPM Work Phone: [facility] 02-21-2024 11:45-0500 Respiratory rate 18 /min Ashutosh Miller DPM Work Phone: [facility] 02-13-2024 13:32-0500 Body height 172.72 cm Blu Ball DO Work Phone: [facility] 02-13-2024 13:32-0500 Body mass index (BMI) [Ratio] 27.5 kg/m2 Blu Ball DO Work Phone: [facility] 02-13-2024 13:32-0500 Body weight 82.1 kg Blu Ball DO Work Phone: [facility] 02-13-2024 13:32-0500 Diastolic blood pressure 64 mm[Hg] Blu Ball DO Work Phone: [facility] 02-13-2024 13:32-0500 Heart rate 65 /min Blu Ball DO Work Phone: [facility] 02-13-2024 13:32-0500 Respiratory rate 12 /min Blu Ball DO Work Phone: [facility] 02-13-2024 13:32-0500 Systolic blood pressure 110 mm[Hg] Blu Ball DO Work Phone: [facility] 12-13-2023 11:28-0400 Body height 172.7 cm Ashutosh Miller DPM Work Phone: [facility] 12-13-2023 11:28-0400 Body mass index (BMI) [Ratio] 27.37 kg/m2 Ashutosh Miller DPM Work Phone: [facility] 12-13-2023 11:28-0400 Body weight 81.65 kg Ashutosh Miller DPM Work Phone: [facility] 12-13-2023 11:28-0400 Diastolic blood pressure 80 mm[Hg] Ashutosh Miller DPM Work Phone: [facility] 12-13-2023 11:28-0400 Heart rate 85 /min Ashutosh Miller DPM Work Phone: [facility] 12-13-2023 11:28-0400 Systolic blood pressure 124 mm[Hg] Ashutosh Miller DPM Work Phone: [facility] 11-20-2023 13:48-0400 Body height 172.72 cm DO Blu Ball Work Phone: [facility] 11-20-2023 13:48-0400 Body mass index (BMI) [Ratio] 27.8 kg/m2 DO Blu Ball Work Phone: [facility] 11-20-2023 13:48-0400 Body temperature 97.8 [degF] DO Blu Ball Work Phone: [facility] 11-20-2023 13:48-0400 Body weight 83 kg DO Blu Ball Work Phone: [facility] 11-20-2023 13:48-0400 Diastolic blood pressure 78 mm[Hg] DO Blu Ball Work Phone: [facility] 11-20-2023 13:48-0400 Heart rate 75 /min DO Blu Ball Work Phone: [facility] 11-20-2023 13:48-0400 SaO2% (BldA) [Mass fraction] 97 % DO Blu Ball Work Phone: [facility] 11-20-2023 13:48-0400 Systolic blood pressure 128 mm[Hg] DO Blu Ball Work Phone: [facility] 08-10-2023 09:17-0400 Body height 172.72 cm [facility] 08-10-2023 09:17-0400 Body mass index (BMI) [Ratio] 27.8 kg/m2 [facility] 08-10-2023 09:17-0400 Body weight 83.23 kg [facility] 08-10-2023 09:17-0400 Diastolic blood pressure 66 mm[Hg] [facility] 08-10-2023 09:17-0400 Heart rate 66 /min [facility] 08-10-2023 09:17-0400 Respiratory rate 16 /min [facility] 08-10-2023 09:17-0400 Systolic blood pressure 117 mm[Hg] [facility] 05-10-2023 08:37-0400 Body height 172.72 cm [facility] 05-10-2023 08:37-0400 Body mass index (BMI) [Ratio] 28.5 kg/m2 [facility] 05-10-2023 08:37-0400 Body weight 85.27 kg [facility] 05-10-2023 08:37-0400 Diastolic blood pressure 68 mm[Hg] [facility] 05-10-2023 08:37-0400 Heart rate 76 /min [facility] 05-10-2023 08:37-0400 Respiratory rate 20 /min [facility] 05-10-2023 08:37-0400 Systolic blood pressure 129 mm[Hg] [facility] 04-19-2023 10:19-0500 Body height 172.72 cm [facility] 04-19-2023 10:19-0500 Body mass index (BMI) [Ratio] 27.4 kg/m2 [facility] 04-19-2023 10:19-0500 Body weight 81.81 kg [facility] 04-19-2023 10:19-0500 Diastolic blood pressure 82 mm[Hg] [facility] 04-19-2023 10:19-0500 Heart rate 74 /min [facility] 04-19-2023 10:19-0500 Respiratory rate 20 /min [facility] 04-19-2023 10:19-0500 Systolic blood pressure 125 mm[Hg] [facility] 02-08-2023 09:00-0500 Body height 172.72 cm [facility] 02-08-2023 09:00-0500 Body weight 83.91 kg [facility] 02-08-2023 09:00-0500 Diastolic blood pressure 71 mm[Hg] [facility] 02-08-2023 09:00-0500 Systolic blood pressure 141 mm[Hg] [facility] 12-21-2022 10:35-0400 Body height 170.[address] 12-21-2022 10:35-0400 Body mass index (BMI) [Ratio] 28.51 kg/m2 [address] 12-21-2022 10:35-0400 Body weight 82.[address] 11-09-2022 10:17-0400 Diastolic blood pressure 44 mm[Hg] Blu Hylton Ball Work Phone: [facility] [address] DO Work Phone: 11-09-2022 10:17-0400 Systolic blood pressure 122 mm[Hg] Blu E Ball Work Phone: [facility] DO Work Phone: 11-09-2022 09:57-0400 Diastolic blood pressure 92 mm[Hg] Blu E Ball Work Phone: [facility] DO Work Phone: 11-09-2022 09:57-0400 Systolic blood pressure 142 mm[Hg] Blu E Ball Work Phone: [facility] DO Work Phone: 11-09-2022 09:56-0400 Body height 170.18 cm Blu E Ball Work Phone: [facility] DO Work Phone: 11-09-2022 09:56-0400 Body mass index (BMI) [Ratio] 28.51 kg/m2 Blu E Ball Work Phone: [facility] DO Work Phone: 11-09-2022 09:56-0400 Body surface area Derived from formula 1.94 m2 Blu E Ball Work Phone: [facility] DO Work Phone: 11-09-2022 09:56-0400 Body weight 82.56 kg Blu E Ball Work Phone: [facility] 250 DO Work Phone: 11-09-2022 09:56-0400 Diastolic blood pressure 98 mm[Hg] Blu E Ball Work Phone: [facility] [email or web address] 250 DO Work Phone: 11-09-2022 09:56-0400 Heart rate 61 /min Blu E Ball Work Phone: [facility] [employer] 250 DO Work Phone: 11-09-2022 09:56-0400 Systolic blood pressure 150 mm[Hg] Blu E Ball Work Phone: [facility] [employer] 250 DO Work Phone: 09-05-2022 10:00-0400 Body height 172.72 cm Blu Ball Other [facility] [employer] Other 09-05-2022 10:00-0400 Body mass index (BMI) [Ratio] 27.91 kg/m2 Blu Ball Other [facility] [employer] Other 09-05-2022 10:00-0400 Body weight 83.28 kg Blu Ball Other [facility] [employer] Other 09-05-2022 10:00-0400 Diastolic blood pressure 67 mm[Hg] Blu Ball Other [employer] Other 09-05-2022 10:00-0400 Respiratory rate 20 /min Blu Ball Other [employer] Other 09-05-2022 10:00-0400 Systolic blood pressure 128 mm[Hg] Blu Ball Other [employer] Other 08-30-2022 09:14-0400 Blood Pressure Location Clarisa Ibarra [facility] 08-30-2022 09:14-0400 Diastolic blood pressure 77 mm[Hg] Clarisa Lue [facility] 08-30-2022 09:14-0400 Heart rate 68 /min Clarisa Lue [facility] 08-30-2022 09:14-0400 Systolic blood pressure 125 mm[Hg] Clarisa Lue [facility] [facility] 08-22-2020 07:16-0400 Body temperature 98.1 [degF] Mamadou Adame MD Work Phone: [employer] Work Phone: 08-22-2020 07:16-0400 Diastolic blood pressure 64 mm[Hg] Mamadou Adame MD Work Phone: [employer] Work Phone: 08-22-2020 07:16-0400 Heart rate 67 /min Mamadou Adame MD Work Phone: [employer] Work Phone: 08-22-2020 07:16-0400 Respiratory rate 16 /min Mamadou Adame MD Work Phone: [employer] Work Phone: 08-22-2020 07:16-0400 SaO2% (BldA) [Mass fraction] 97 % Mamadou Adame MD Work Phone: [employer] Work Phone: 08-22-2020 07:16-0400 Systolic blood pressure 144 mm[Hg] Mamaodu Adame MD Work Phone: [employer] Work Phone: 08-22-2020 05:53-0400 Body mass index (BMI) [Ratio] 27.37 kg/m2 Mamadou Adame MD Work Phone: [employer] Work Phone: 08-22-2020 05:53-0400 Body weight 81.65 kg Mamadou Adame MD Work Phone: [employer] Work Phone: 08-21-2020 11:09-0400 Body height 172.7 cm Mamadou Adame MD Work Phone: [employer] Work Phone: 08-10-2020 11:16-0400 Body temperature 98.4 [degF] Elisa Ferraro MD Work Phone: [employer] Work Phone: 08-10-2020 11:16-0400 Diastolic blood pressure 64 mm[Hg] Elisa Ferraro MD Work Phone: [employer] Work Phone: 08-10-2020 11:16-0400 Heart rate 73 /min Elisa Ferraro MD Work Phone: [employer] Work Phone: 08-10-2020 11:16-0400 Respiratory rate 16 /min Elisa Ferraro MD Work Phone: [employer] Work Phone: 08-10-2020 11:16-0400 SaO2% (BldA) [Mass fraction] 97 % Elisa Ferraro MD Work Phone: [employer] Work Phone: 08-10-2020 11:16-0400 Systolic blood pressure 144 mm[Hg] Elisa Ferraro MD Work Phone: [employer] Work Phone: 08-10-2020 04:10-0400 Body mass index (BMI) [Ratio] 28.4 kg/m2 Elisa Ferraro MD Work Phone: [employer] Work Phone: 08-10-2020 04:10-0400 Body weight 84.73 kg Elisa Ferraro MD Work Phone: [employer] Phone: 08-09-2020 08:01-0400 Body height 172.7 cm Elisa Ferraro MD Work Phone: [employer] Phone: 07-15-2020 09:25-0400 Body height 172.7 cm Sta 1 [employer] Work Phone: 07-15-2020 09:25-0400 Body mass index (BMI) [Ratio] 27.46 kg/m2 Sta 1 [employer] Phone: 07-15-2020 09:25-0400 Body temperature 98.6 [degF] Sta 1 [employer] Phone: 07-15-2020 09:25-0400 Body weight 81.92 kg Sta 1 [employer] Work Phone: 07-15-2020 09:25-0400 Diastolic blood pressure 57 mm[Hg] Sta 1 [employer] Phone: 07-15-2020 09:25-0400 Heart rate 69 /min Sta 1 [employer] Phone: 07-15-2020 09:25-0400 Respiratory rate 16 /min Sta 1 [employer] Phone: 07-15-2020 09:25-0400 SaO2% (BldA) [Mass fraction] 97 % Sta 1 [employer] Phone: 07-15-2020 09:25-0400 Systolic blood pressure 136 mm[Hg] Sta 1 [employer] Phone: Encounters Encounter Date Encounter Type Care Provider Facility Start: 08-18-2024 End: 08-18-2024 Patient encounter procedure Leah Sanford MOTOR TESTER-CENTER MANAGER Work Phone: [facility] Comment on above: Neoplasm of unspecif ied behavior of bone, soft tissue, and skin Start: 08-18-2024 End: 08-18-2024 ambulatory LEAH SANFORD Not Available Start: 08-18-2024 End: 08-18-2024 Bamboo flowsheet Leah Cabral Felter MOTOR TESTER-CENTER MANAGER Work Phone: [facility] Start: 08-18-2024 End: 08-18-2024 Bamboo flowsheet Leah Cabral Felter MOTOR TESTER-CENTER MANAGER Work Phone: [facility] Start: 08-04-2024 End: 08-04-2024 ambulatory [facility] Work Phone: Start: 08-04-2024 End: 08-04-2024 Patient encounter procedure [facility] Work Phone: Start: 07-17-2024 End: 07-17-2024 ambulatory ASHUTOSH MILLER Not Available Start: 07-02-2024 End: 07-02-2024 Office outpatient visit 25 minutes Teo Johnson MD Work Phone: [facility] Comment on above: Coronary artery dise 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; Hypertension, unspecified type; Hyperlipidemia, unspecified hyperlipidemia type; PFO (patent foramen ovale) ([facility]); History of DVT (deep vein thrombosis); High risk medication use; BMI 27.0-27.9,adult; Former smoker Start: 07-02-2024 End: 07-02-2024 ambulatory TEO Tan [facility] Ambulatory Start: 05-05-2024 End: 05-05-2024 Admission to same day surgery center Bul Velez DO Work Phone: [facility] Purchase [employer] Clerk Work Phone: Start: 05-05-2024 End: 05-05-2024 ambulatory Blu Velez DO Work Phone: [facility] Work Phone: Start: 05-02-2024 End: 05-02-2024 Patient encounter procedure Blu Velez DO Work Phone: [facility] [facility] Work Phone: Start: 05-02-2024 End: 05-02-2024 ambulatory Blu Velez DO Work Phone: [facility] Work Phone: Start: 05-02-2024 Encounter for preprocedural laboratory examination Teo Garcia [facility] Start: 05-01-2024 End: 05-01-2024 Bamboo flowsheet Ashutosh Miller DPM Work Phone: [facility] Start: 05-01-2024 End: 05-01-2024 Bamboo flowsheet Ashutosh Miller DPM Work Phone: [facility] Start: 05-01-2024 End: 05-01-2024 Patient encounter procedure Ashutosh Miller DPM Work Phone: [facility] Comment on above: Pain due to onychomy cosis of toenails of both feet (Primary Dx); Xerosis cutis Start: 05-01-2024 End: 05-01-2024 ambulatory ASHUTOSH MILLER Not Available Start: 04-29-2024 End: 04-29-2024 Subsequent hospital visit by physician Salena Alexander 1 [facility] Comment on above: Shortness of breath Start: 04-29-2024 End: 04-29-2024 [address] [facility] Start: 04-08-2024 End: 04-08-2024 Subsequent hospital visit by physician Salena Clemons Stress Room 1 [facility] Comment on above: Shortness of breath Start: 04-08-2024 End: 04-08-2024 amb[address] [facility] Start: 03-26-2024 End: 03-26-2024 Office outpatient visit 25 minutes Teo Johnson MD Work Phone: [facility] Comment on above: Primary hypertension (Primary Dx); PFO (patent foramen ovale) ([facility]); Shortness of breath; High risk medication use; History of DVT (deep vein thrombosis); Dyslipidemia; Overweight; BMI 27.0-27.9,adult; Former smoker Start: 03-26-2024 End: 03-26-2024 ambulatory [facility] Ambulatory Start: 02-21-2024 End: 02-21-2024 Bamboo flowsheet Ashutosh Miller DPM Work Phone: [facility] Start: 02-21-2024 End: 02-21-2024 Bamboo flowsheet Ashutosh Miller DPM Work Phone: [facility] Start: 02-21-2024 End: 02-21-2024 Patient encounter procedure Ashutosh Miller DPM Work Phone: [facility] Comment on above: Pain due to onychomy cosis of toenails of both feet (Primary Dx); Xerosis cutis Start: 02-21-2024 End: 02-21-2024 ambulatory ASHUTOSH MILLER Not Available Start: 02-15-2024 Non-patient / Non-visit Benjam in Ball DO Work Phone: [facility] Work Phone: Start: 02-13-2024 End: 02-13-2024 Patient encounter procedure Blu Ball DO Work Phone: [facility] Work Phone: Start: 02-12-2024 Patient encounter procedure Blu Ball DO Work Phone: [facility] Start: 02-09-2024 Non-patient / Non-visit Benjam in Ball DO Work Phone: [facility] Work Phone: Start: 12-19-2023 End: 12-19-2023 ambulatory [facility] Work Phone: Start: 12-19-2023 End: 12-19-2023 Patient encounter procedure [facility] Work Phone: Start: 12-13-2023 End: 12-13-2023 Bamboo flowsheet Ashutosh Marianna Paul DPM Work Phone: [facility] Start: 12-13-2023 End: 12-13-2023 Bamboo flowsheet Ashutosh A Paul DPM Work Phone: [facility] Start: 12-13-2023 End: 12-13-2023 Patient encounter procedure Ashutosh A Paul DPM Work Phone: [facility] Comment on above: Pain due to onychomy cosis of toenails of both feet (Primary Dx) Start: 12-13-2023 End: 12-13-2023 ambulatory ASHUTOSH MILLER Not Available Start: 11-20-2023 End: 11-20-2023 ambulatory DO Blu Ball Work Phone: [facility] Work Phone: Start: 11-20-2023 End: 11-20-2023 Patient encounter procedure DO Blu Ball Work Phone: [facility] Work Phone: Start: 10-04-2023 End: 10-04-2023 ambulatory ASHUTOSH Marianna PAUL Not Available Start: 09-12-2023 End: 09-12-2023 ambulatory DO Blu Ball Work Phone: [facility] Work Phone: Start: 09-12-2023 End: 09-12-2023 Patient encounter procedure DO Blu Ball Work Phone: [facility] Work Phone: Start: 09-12-2023 End: 09-12-2023 Patient encounter procedure DO Blu Ball Work Phone: [facility] Start: 09-12-2023 End: 09-12-2023 ambulatory DO Blu Ball Work Phone: [facility] Work Phone: Start: 08-10-2023 End: 08-10-2023 ambulatory [facility] Work Phone: Start: 08-10-2023 End: 08-10-2023 Patient encounter procedure [facility] Work Phone: Start: 07-17-2023 Non-patient / Non-visit [facility] Work Phone: Start: 05-10-2023 End: 05-10-2023 ambulatory [facility] Work Phone: Start: 05-10-2023 End: 05-10-2023 Patient encounter procedure [facility] Work Phone: Start: 04-19-2023 End: 04-19-2023 ambulatory [facility] Work Phone: Start: 04-19-2023 End: 04-19-2023 Patient encounter procedure [facility] Work Phone: Start: 04-11-2023 End: 04-11-2023 ambulatory [facility] Work Phone: Start: 04-11-2023 End: 04-11-2023 Patient encounter procedure [facility] Work Phone: Start: 03-26-2023 Patient encounter procedure [facility]- Start: 02-08-2023 End: 02-08-2023 Patient encounter procedure [facility] Work Phone: Start: 01-30-2023 End: 01-30-2023 ambulatory Blu Velez Other [employer] Other Start: 01-30-2023 Telephone encounter Blu Velez [facility] Start: 12-21-2022 End: 12-21-2022 Subsequent hospital visit by physician Salena Clemons Echo/Vasc Room 2 [facility] Comment on above: Abnormal echocardiog minal; Cerebrovascular accident (CVA), unspecified mechanism (CMS/HCC) Start: 11-16-2022 End: 11-16-2022 ambulatory Blu Velez Other [employer] Other Start: 11-16-2022 Telephone encounter Blu AVILA [facility] Start: 11-14-2022 End: 11-14-2022 ambulatory Blu Velez Other [employer] Other Start: 11-14-2022 Nursing evaluation o f patient and report Blu Velez [facility] Start: 11-09-2022 Office consultation new/estab patient 60 min Blu Velez Work Phone: [facility] DO Work Phone: Start: 11-09-2022 Patient encounter procedure Blu Velez Work Phone: [facility] [place] DO Work Phone: Start: 11-09-2022 ambulatory [facility] Facility :[facility] Start: 11-07-2022 ambulatory [facility] Facility :[facility] Start: 11-03-2022 End: 11-03-2022 ambulatory Blu Velez Other [employer] Other Start: 11-03-2022 Telephone encounter Blu AVILA [facility] Start: 10-20-2022 End: 10-20-2022 ambulatory Blu Velez Other [employer] Other Start: 10-20-2022 Telephone encounter Blu AVILA [facility] Start: 09-05-2022 End: 09-05-2022 ambulatory Blu Velez Other [employer] Other Start: 09-05-2022 Office outpatient vi sit 25 minutes Blu Velez [facility] Start: 08-30-2022 End: 08-31-2022 ambulatory Clarisa Ibarra Facility:[facility] Start: 08-30-2022 End: 08-30-2022 Patient encounter procedure Clarisa Ibarra [facility] Start: 02-21-2022 End: 02-21-[address] BLU VELEZ Facility:[facility] Start: 02-07-2022 Adult health examination Gerber meza [place] Other [employer] Other Start: 02-07-2022 Encounter for genera l adult medical examination without abnormal findings Blu Velez Other [employer] Other Start: 01-23-2022 End: 01-24-[address] BLU VELEZ Facility:[facility] Start: 2022 End: 01-12-2022 ambulatory Clarisa Ibarra Facility:[facility] Start: 11-21-2021 End: 11-22-[address] JULIANA SMALLWOOD JR Facility:[facility] Start: 05-27-2021 End: 06-24-2021 ambulatory SHAIKH Tara VIERA Facility:[facility] Start: 04-26-2021 End: 05-26-2021 ambulatory H MAXIMILIANO Facility:[facility] Start: 03-29-2021 End: 04-25-2021 ambulatory H MAXIMILIANO Facility:[facility] Start: 03-01-2021 End: 03-28-2021 ambulatory SEAN AVILA Facility:[facility] Start: 10-29-2020 End: 10-29-2020 Encounter for other preprocedural examination Blu Velez Other [employer] Other Start: 10-29-2020 End: 10-29-2020 Pre-procedure evaluation check Blu Velez Other [employer] Other Start: 08-21-2020 End: 08-22-2020 Evaluation and management of inpatient [facility] Start: 08-21-2020 End: 08-22-2020 Evaluation and management of inpatient Mamadou Adame MD Work Phone: [facility] Comment on above: Hemarthrosis of righ t knee (Primary Dx); S/P total knee arthroplasty, right Start: 08-09-2020 End: 08-10-2020 ambulatory ELISA [facility] Start: 08-09-2020 End: 08-10-2020 Subsequent hospital visit by physician Elisa Ferraro MD Work Phone: [facility] Start: 07-15-2020 End: 07-20-2020 ambulatory BLU [facility] Start: 07-15-2020 End: 07-19-2020 Subsequent hospital visit by physician Tabby Cortes Rm 1 [facility] PRE-ADMIT TESTING Start: 08-13-2017 End: 08-14-2017 Ambulatory CURT CHOWDHURY [facility] Procedures Date Procedure Procedure Detail Performing Clinician Start: 08-18-2024 SKIN / NAIL BIOPSY Leah Sanford MOTOR TESTER-CENTER MANAGER Work Phone: Start: 05-05-2024 Blu Ball DO Work Phone: Start: 05-05-2024 CL [facility] & COR Angio Blu Ball DO Work Phone: Start: 04-29-2024 Ct heart no contrast quant eval coronry calcium Teo Johnson MD Work Phone: Start: 09-12-2023 X-ray of left knee DO Blu Ball Work Phone: Start: 12-21-2022 Echo transthorc r-t 2d w/wo m-mode rec f-up/lmtd Teo Johnson MD Work Phone: Start: 11-21-2021 PSA screening SHAIKH MAXIMILIANO Comment on above: Performed By: #### PSAD #### [facility] [address] [place] [address] Dr. Tisha John Start: 08-22-2020 BASIC METABOLIC PANEL W/ REFLEX TO MG FOR LOW K Rachel Mclean MOTOR TESTER - CENTER MANAGER Work Phone: Start: 08-22-2020 Blood count complete automated Rachel osei Vinay MOTOR TESTER - CENTER MANAGER Work Phone: Start: 08-21-2020 Blood count complete auto&auto difrntl wbc Arden Maharaj DO Work Phone: Start: 08-10-2020 Prothrombin time Elisa Ferraro MD Work Phone: Start: 08-09-2020 Radiologic examination knee 1/2 views Elisa Ferraro MD Work Phone: Start: 08-09-2020 End: 08-09-2020 Arthrp kne condyle&platu medial&lat compartments Elisa Ferraro MD Work Phone: Start: 08-09-2020 Blood [...] Lue Start: 11-25-2015 Preoperative cardiovascular examination Blu Velez Other Start: 06-01-2015 Screening for malignant neoplasm of colon Blu Velez Other Start: 09-23-2013 Screening for malignant neoplasm of prostate Blu Ball Other Arthroplasty of knee Clarisa guillermo Arthroplasty of knee Gabi Velez Work Phone: Arthroscopy of knee Clarisa hylton Cataract surgery Blu Velez Work Phone: Colonoscopy Clarisa Ibarra Depression screening Gabi Velez Other Esophagogastroduodenoscopy K athy Fred H/O: artificial joint Hayam in [place] Other Hernia repair Clarisa Ibarra Hernia repair Blu pride Work Phone: History of operative procedure on knee History of left knee replacement DO Blu Velez Work Phone: Operative procedure on knee Blu Velez Work Phone: Procedure on back Blu Velez Work Phone: Repair of musculoten dinous cuff of shoulder Clarisa Ibarra Repair of shoulder Blu Velez Work Phone: Screening for malign ant neoplasm of prostate Blu Velez Other Total colonoscopy lBu Velez Work Phone: Comment on above: 2020; Plan of Treatment Date Care Activity Detail Author Start: 03-03-2025 End: 03-03-2025 Patient encounter procedure 03/03/2025 10:10 AM EST Office Visit [facility] [address] [facility] [address] [place] [address] Teo Johnson MD [address] [facility] [address] [place] [address] [facility] Start: 02-12-2025 End: 02-12-2025 Patient encounter procedure 02/12/2025 10:55 AM EST Office Visit [facility] [address] [place] [address] Leah Sanford APRN-CENTER MANAGER [address] [place] [address] [facility] Start: 09-25-2024 End: 09-25-2024 Patient encounter procedure 09/25/2024 10:50 AM EDT Procedure Visit [facility] [address] [place] [address] Ashutosh Miller, DPM [address] [address] [facility] Start: 08-18-2024 End: 08-18-2024 Patient encounter procedure 08/18/2024 3:20 PM EDT Office Visit [facility] [address] [place] [id number] Leah Sanford, MOTOR TESTER-CENTER MANAGER [address] [place] [address] Arrived [facility] Comment on above: Arrived Start: 07-17-2024 End: 07-17-2024 Patient encounter procedure 07/17/2024 10:30 AM EDT Procedure Visit [facility] [address] [place] [address] Ashutosh Miller DPM [address] [address] [facility] Start: 07-02-2024 End: 07-02-2025 Alanine aminotransferase [Enzymatic activity/volume] in Serum or Plasma by With P-5'-P Alanine Aminotransferase Lab Routine Coronary artery dise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 Hyperlipidemia, unspecified hyperlipidemia type Expected: 07/02/2024 (Approximate), Expires: 07/02/2025 [facility] Service Area Work Phone: Comment on above: Expected: 07/02/2024 (Approximate), Expi res: 07/02/2025 Start: 07-02-2024 End: 07-02-2025 Aspartate aminotransferase [Enzymatic activity/volume] in Serum or Plasma by With P-5'-P Aspartate Aminotransferase Lab Routine Coronary artery dise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 Hyperlipidemia, unspecified hyperlipidemia type Expected: 07/02/2024 (Approximate), Expires: 07/02/2025 [facility] Work Phone: Comment on above: Expected: 07/02/2024 (Approximate), Expi res: 07/02/2025 Start: 07-02-2024 End: 07-02-2025 Lipid 1996 panel - Serum or Plasma Lipid Panel Lab Routine Coronary artery dise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 Hyperlipidemia, unspecified hyperlipidemia type Expected: 07/02/2024 (Approximate), Expires: 07/02/2025 [facility] Work Phone: Comment on above: Expected: 07/02/2024 (Approximate), Expi res: 07/02/2025 Start: 06-26-2024 COVID-19 Vaccine (4 - Pfizer risk season) COVID-19 Vaccine (4 - Pfizer risk ) [facility] Start: 05-05-2024 [facility] Start: 05-01-2024 End: 05-01-2024 Patient encounter procedure [facility] Comment on above: Pain due to onychomycosis of toenails of both feet (Primary Dx); Xerosis cutis Start: 04-29-2024 End: 04-29-2024 Patient encounter procedure 04/29/2024 7:30 PM EST Appointment [facility] [address] [place] [address] [facility] Start: 04-08-2024 End: 04-08-2024 Patient encounter procedure 04/08/2024 10:30 AM EST Appointment [facility] [address] [place] [id number] [facility] Start: 03-26-2024 End: 03-26-2025 Cardiac stress study Procedure Stress Test Cardiac Services Routine Shortness of breath Expected: 03/26/2024 (Approximate), Expires: 03/26/2025 [facility] Service Area Work Phone: Comment on above: Expected: 03/26/2024 (Approximate), Expi res: 03/26/2025 Start: 03-26-2024 End: 03-26-2025 CT for calcium scoring WO contrast and CTA W contrast IV Heart and coronary arteries CT cardiac scoring wo IV contrast Imaging Routine Shortness of breath Expected: 03/26/2024, Expires: 03/26/2025 [facility] Work Phone: Comment on above: Expected: 03/26/2024, Expires: Start: 02-21-2024 End: 02-21-2024 Patient encounter procedure [facility] Comment on above: Pain due to onychomycosis of toenails of both feet (Primary Dx); Xerosis cutis Start: 12-13-2023 End: 12-13-2023 Patient encounter procedure 12/13/2023 11:30 AM EDT Procedure Visit [facility] [address] [facility] [address] [place] [address] Ashutosh Miller, DPM [address] [facility] [address] [place] [address] Pain due to onychomycosis of toenails of both feet (Primary Dx) [facility] Comment on above: Pain due to onychomycosis of toenails of both feet (Primary Dx) Start: 10-28-2023 Influenza vaccination Influenza Vaccine (#1) [facility] Start: 09-12-2023 Pelvis X-ray XR pelvis 1-2V [facility] Start: 09-12-2023 X-ray of left knee XR knee LT 3V - NOT FOR ER USE [facility] Start: 09-12-2023 XR Knee - left 3 Views [facility] Start: 09-12-2023 XR Pelvis 1 or 2 Views [facility] Start: 01-24-2023 COVID-19 Vaccine (4 - Pfizer series) COVID-19 Vaccine (4 - Pfizer series) [facility] Start: 12-21-2022 ECHO, Provider: [place] MONTGOMERY ULTRASOUND 01,[id number], Status: Pen, Time: 10:45 AM ECHO, Provider: [place] VEGASI ULTRASOUND 01,[id number], Status: Pen, Time: 10:45 AM [facility] [address] DO Work Phone: Start: 10-27-2022 Influenza vaccination Influenza Vaccine (#1) [facility] Start: 08-22-2021 Creatinine measurement Creatinine monitoring [facility] Phone: Start: 08-22-2021 Potassium monitoring Potassium monitoring [employer] Phone: Start: 07-15-2021 Creatinine measurement Creatinine monitoring [facility] Phone: Start: 07-15-2021 Potassium monitoring Potassium monitoring [employer] Phone: Start: 10-27-2020 Influenza vaccination Flu vaccine (Season Ended) [employer] Phone: Start: 08-09-2020 End: 08-09-2020 Admission to same day surgery center 08/09/2020 Surgery IP Unit Elisa Ferraro MD [address] [facility]/ Orthopedic Surgery [place], [place] [id number] RIGHT KNEE TOTAL ARTHROPLASTY- DEPUY [facility] Comment on above: RIGHT KNEE TOTAL ARTHROPLASTY- DEPUY Start: 08-09-2020 End: 08-09-2020 Anesthesia consultation 08/09/2020 Anesthesia Event IP Unit Tatyana Henriquez MD [address] [place] [address] [phone] [facility] Start: 08-09-2020 Subsequent hospital visit by physician 08/09/2020 Hospital Encounter IP Unit Elisa Ferraro MD [address] [facility]/ [place] [address] [phone] [facility] Start: 07-15-2020 Annual Wellness Visit (AWV) Annual Wellness Visit (AWV) [facility] Phone: Start: 01-12-2020 RSV High Risk: (Elderly (60+) or Population) (1 - 1-dose 75+ series) RSV High Risk: (Elderly (60+) or Population) (1 - 1-dose 75+ series) [facility] Start: 07-10-2017 Pneumococcal vaccination Pneumococcal Vaccine (2 of 2 - PCV) [facility] Start: 07-10-2017 Pneumococcal Vaccine: 65+ Years (2 - PCV) Pneumococcal Vaccine: 65+ Years (2 - PCV) [facility] Start: 07-10-2017 Pneumococcal Vaccine: 65+ Years (2 of 2 - PCV) Pneumococcal Vaccine: 65+ Years (2 of 2 - PCV) [facility] Start: 2010 Pneumococcal 65+ years Vaccine (1 of 1 - PPSV23) Pneumococcal 65+ years Vaccine (1 of 1 - PPSV23) [employer] Phone: Start: 1995 Screening for malignant neoplasm of colon Colon cancer screen colonoscopy [employer] Phone: Start: 1995 Shingles Vaccine (1 of 2) Shingles Vaccine (1 of 2) [employer] Phone: Start: 1995 Zoster Vaccines (1 of 2) Zoster Vaccines (1 of 2) [facility] Start: 1967 DTaP/Tdap/Td Vaccines (1 - Tdap) DTaP/Tdap/Td Vaccines (1 - Tdap) [facility] Start: 01-12-1964 DTaP/Tdap/Td vaccine (1 - Tdap) DTaP/Tdap/Td vaccine (1 - Tdap) [employer] Phone: Start: 1963 Diabetes mellitus screening Diabetes Screening [facility] Start: 1963 Hepatitis C screening Hepatitis C Screening [facility] Start: 1955 Lipid panel Lipid screen [employer] Phone: Start: 1945 Abdominal aortic aneurysm screening AAA screen [employer] Phone: Start: 1945 Hepatitis C screening Hepatitis C screen [employer] Phone: Start: 1945 Lipid panel Lipid Panel [facility] Start: 1945 Medicare Annual Wellness Visit Medicare Annual Wellness Visit (AWV) [facility] End: 04-08-2024 Cardiac stress study Procedure [facility] Work Phone: Comment on above: Once for 1 Occurrences starting 04/08/19 until 04/08/2024 Dermatopathology exam Dermatopat hology exam Pathology and Cytology Timed Neoplasm of unspecified behavior of bone, soft tissue, and skin Release Upon Ordering for 1 Occurrences starting 08/18/2024 [facility] [employer] Work Phone: Comment on above: Release Upon Ordering for 1 Occurrences starting 08/18/2024 Fibrin D-dimer [Pres ence] in Platelet poor plasma by Latex agglutination [facility] Oxygen therapy [Mini [facility] Data Set] [employer] Work Phone: Comment on above: Daily until discontinued starting 2020 Daily until disconti nued starting 08/21/2020 Patient Education Know your Meds [facility] Work Phone: Patient referral [facility] Work Phone: PROTIME-INR PROTIME-INR Lab Routine Daily until discontinued starting 08/10/2020, 1 completed [employer] Work Phone: Comment on above: Daily until discontinued starting 2020, 1 completed Spirometry panel Incentive abdiel metry Respiratory Care Routine Every 2hr while awake until discontinued starting 08/09/2020 [employer] Phone: Comment on above: Every 2hr while awake until discontinued starting 08/09/2020 End: 12-21-2022 US Heart Transthoracic [facility] Work Phone: Comment on above: Once for 1 Occurrences starting 12/22/19 until 12/21/2022 End: 08-21-2020 Wound Culture Wound Culture Microbiology Routine One Time for 1 Occurrences starting 08/21/2020 until 08/21/2020 [employer] Work Phone: Comment on above: One Time for 1 Occurrences starting 07/28 until 08/21/2020 End: 08-21-2020 Wound Gram stain Wound Gram stain Microbiology Routine One Time for 1 Occurrences starting 08/21/2020 until 08/21/2020 [employer] Work Phone: Comment on above: One Time for 1 Occurrences starting 07/28 until 08/21/2020 XR Chest 2 Views [facility] Immunizations Immunization Date Immunization Notes Care Provider Fa cili 12-28-2023 influenza, seasonal, injectable Teo Johnson MD Work Phone: [facility] 12-28-2023 SARS-CoV-2, Unspecified Sundar Johnson MD Work Phone: [facility] Work Phone: 12-19-2023 influenza, high dose seasonal, preservative-free [facility] 12-10-2023 COVID-19 (PFIZER) 12Y and older Blu Velez DO Work Phone: [facility] 11-29-2022 Pfizer COVID-19 vaccine, 12 years and older, (30mcg/0.3mL) (Comirnaty) Teo Johnson MD Work Phone: [facility] Work Phone: 11-26-2022 influenza virus vaccine, unspecified formulation Ashutosh Miller [facility] Work Phone: [facility] 11-14-2022 influenza virus vaccine, unspecified formulation [facility] 11-14-2022 influenza, high dose seasonal, preservative-free Blu Velez Other [employer] Other 12-01-2021 influenza virus vaccine, split virus (incl. purified surface antigen) Blu Velez Other [employer] Other 12-01-2021 influenza virus vaccine, unspecified formulation [facility] 11-26-2021 influenza virus vaccine, unspecified formulation Sal[place] 2 [facility] Work Phone: 11-15-2021 SARS-CoV-2 (COVID-19 ) [id number] Clarisa Ibarra [facility] 11-26-2020 influenza virus vaccine, unspecified formulation Teo Johnson MD Work Phone: [facility] Work Phone: 11-22-2020 SARS-CoV-2 (COVID-19 ) mRNA BNT-162b2 vax Clarisa Ibarra [facility] Comment on above: Result Comment: 2021: [id number] 11-12-2020 influenza virus vaccine, split virus (incl. purified surface antigen) Blu Velez Other [employer] [facility] [employer] Other 11-12-2020 influenza virus vaccine, unspecified formulation [facility] 04-18-2020 COVID-19, Pfizer, PF , 30mcg/0.3mL Sta 1 [facility] Comment on above: Result Comment: 2021: [id number] 03-28-2020 COVID-19, Pfizer, PF , 30mcg/0.3mL Sta 1 [facility] Comment on above: Result Comment: 2021: [id number] 11-27-2019 influenza virus vaccine, unspecified formulation Teo Johnson MD Work Phone: [facility] Work Phone: 11-10-2019 influenza virus vaccine, split virus (incl. purified surface antigen) Blu Velez Other [employer] Other 11-10-2019 influenza virus vaccine, unspecified formulation [facility] 12-09-2018 influenza virus vaccine, split virus (incl. purified surface antigen) Blu Velez Other [facility] [employer] Other 12-09-2018 influenza virus vaccine, unspecified formulation [facility] 11-13-2017 influenza virus vaccine, split virus (incl. purified surface antigen) Blu Velez Other [facility] [employer] Other 11-13-2017 influenza virus vaccine, unspecified formulation Clarisa Ibarra [facility] 11-13-2017 Seasonal trivalent influenza vaccine, adjuvanted, preservative free Blu Velez Work Phone: [place] [id number] DO Work Phone: 01-15-2017 influenza virus vaccine, unspecified formulation Clarisa Luselwyn [facility] 01-15-2017 influenza, injectabl e, quadrivalent, contains preservative Blu Velez Work Phone: [place] [id number] DO Work Phone: 12-13-2016 influenza virus vaccine, split virus (incl. purified surface antigen) Blu Velez Other [facility] [employer] Other 12-13-2016 influenza virus vaccine, unspecified formulation [facility] 07-10-2016 pneumococcal polysaccharide vaccine, 23 valent Clarisakavya Ibarra [facility] 01-20-2015 pneumococcal conjuga te vaccine, 13 valent Blu Velez Other [facility] 01-20-2015 pneumococcal Conjuga te, unspecified formulation; Translations: [Need for prophylactic vaccination against Streptococcus pneumoniae (pneumococcus)] Blu Velez Other [facility] [employer] Other 12-10-2014 influenza virus vaccine, split virus (incl. purified surface antigen) Blu Velez Other [employer] Other 12-10-2014 influenza virus vaccine, unspecified formulation [facility] Payers Date Payer Category Payer Self-pay [id number] 2023 Private Health Insurance [employer] [id number] 2022 Medicare supplementa l policy (as second payer) [employer] [id number] 2022 Unknown 2018 Medicare [id number] 2009 Medicare [id number]. [id number] 1959 Medicare [id number]. [id number] 1959 Private Health Insurance [facility] [id number] [id number]. 2.7.3.438167.315 1945 Unknown [id number] 2.16.840.1.741717.3.579. 2.177 1945 Unknown [id number] 2.16.840.1.900278.3.579. 2.177 1945 Unknown [id number] 2.16.840.1.416614.3.579. 2.177 1945 Unknown [id number] 2.16.840.1.703817.3.579. 2.593 1945 Unknown [id number] 2.16.840.1.231105.3.579. 2.593 1945 Unknown [id number] 2.16.840.1.423088.3.579. 2.593 1945 Unknown [id number] 2.16.840.1.365630.3.579. 2.593 1945 Unknown [id number] 2.16.840.1.276604.3.579. 2.593 1945 Unknown [id number] 2.16.840.1.283856.3.579. 2.593 1945 Unknown [id number] 2.16.840.1.935092.3.579. 2.593 1945 Unknown [id number] 2.16.840.1.981915.3.579. 2.727 1945 Unknown [id number] 2.16.840.1.083016.3.579. 2.727 1945 Unknown [id number] 2.16.840.1.749763.3.579. 2.356 1945 Unknown [id number] 2.16.840.1.970231.3.579. 2.356 1945 Unknown [id number] 2.16.840.1.261853.3.579. 2.1246 1945 Unknown [id number] 2.16.840.1.767535.3.579. 2.1246 1945 Unknown [id number] 2.16.840.1.364864.3.579. 2.1244 1945 Unknown [id number] 2.16.840.1.389848.3.579. 2.1244 1945 Unknown [id number] 2.16.840.1.405840.3.579. 2.1259 1945 Unknown [id number] 2.16.840.1.496732.3.579. 2.1258 1945 Unknown [id number] 2.16.840.1.688210.3.579. 2.1259 1945 Unknown [id number] 2.16.840.1.304363.3.579. 2.1259 1945 Unknown [id number] 2.16.840.1.992968.3.579. 2.1259 1945 Unknown [id number] 2.16.840.1.725537.3.579. 2.1259 Unknown [id number] 2.16.840.1.698694.3.579. 2.531 Unknown [id number] 2.16.840.1.311114.3.579. 2.531 Unknown [id number] 2.16840.1.572807.3.579. 2.531 Social History Date Type Detail Facility Start: 07-15-2020 End: 03-01-2023 Tobacco smoking status NHIS Former smoker [facility] End: 02-26-1965 History of tobacco use Current smoker [employer] Start: 07-15-2020 End: 03-01-2023 Tobacco use and exposure Never used [employer] Start: 07-15-2020 End: 08-18-2024 Alcohol intake Current drinker of alcohol (finding) [employer] Work Phone: Start: 07-15-2020 End: 08-18-2024 Alcohol intake [employer] Work Phone: Comment on above: 5-6 beers daily; 2-3 servings a day; quit 1964; Start: 1945 Sex Assigned At Not on file [facility] Work Phone: Start: 12-11-2022 End: 07-02-2024 Exposure to SARS-CoV-2 (event) Not sure [facility] Tobacco smoking status Never [facility] Start: 03-01-2023 End: 08-18-2024 Sex Assigned At Male [facility] Tobacco smoking stat [facility] Tobacco smoking consumption unknown [facility] Work Phone: Start: 02-08-2023 End: 02-08-2023 Tobacco smoking status INIS Never smoked tobacco (finding) [facility] Start: 1945 Sex Assigned At Male [facility] End: 02-27-1964 History of tobacco use Cigarette Smoker [facility] How often to you hav e [...] than 4 cups per day [facility] Start: 05-02-2024 End: 08-04-2024 Sex Male (finding) [facility] Start: 07-02-2024 Alcohol Comment 3-4 beers daily [facility] Work Phone: Medical Equipment Procedure Code Equipment Code Equipment Origin al Text Equipment Identifier Dates Upcharge Knee Primary Attune Aox Insert Depuy Synthes [id number] Start: 08-09-2020 Cement Bne 40gm Full Dose Pmma W/O Antibio Hi Visc N Radpq [id number] Start: 08-09-2020 Component Pat [id number] Knee Poly Anuel Medialized Nayla Attune [id number] Start: 08-09-2020 Baseplate Tib Sz 7 Fix Bear [employer] [id number] Start: 08-09-2020 Component Fem Sz 7 R Knee Post Stbl [employer] [id number] Start: 08-09-2020 Insert Tib Sz 7 Thk7mm Knee Post Stbl Fix Bear [employer] [id number] Start: 08-09-2020 Goals Date Patient Goal Desired Activity /State Functional Status Date Assessment Result Facility 08-30-2022 Functional Status N/A [facility] Clinical Notes 07-15-2020 to 08-18-2024 Leah Sanford APRN-MACY - 08/18/2024 3:20 PM EDCarmita Johnson MD - 07/02/2024 10:40 AM EDTPatient InstructionsAshutosh Miller DPM - 05/01/2024 11:30 AM ESTPatient Instructions Note Date & Type Note Facility 08-18-2024 History of Present illness Narrative Images from the original note were not included. Lesions: Location: right ear Duration: months Quality: bleeding Modifying factors: aggravated by laying on right side Associated symptoms: non-healing, tender Treatments: none New patient, referred by Blu Velez DO All pertinent medical history, medications, and allergies were reviewed. General Exam: alert, oriented to person, place, and time, normal affect, well appearing Accompanied by significant other A focused exam completed based on patient reported problems, see below: Skin Exam 1. NEOPLASM OF UNSPECIFIED BEHAVIOR OF BONE, SOFT TISSUE, AND SKIN Right [place] papule Lesion biopsy Type of biopsy: tangential [...] month skin check documented in this encounter [facility] 07-02-2024 History of Present illness Narrative Chief Complaint Patient presents with Post-Cath 05/05 Subjective Yanelis Noriega is a 79 y.o. male HPI Patient is in the office for follow-up for having cardiac catheterization April 2024 for elevated coronary calcium score and symptoms of chest pain. His cardiac catheterization demonstrated diffuse atherosclerosis with no high-grade lesions. Ejection fraction was normal. The findings were shared with the patient today. I demonstrated atherosclerosis on the electronic charts available in the office. Patient understands. Recent lab data from May 2024 at the [facility] revealed LDL cholesterol of 135 mg/dL he is currently taking only atorvastatin 10 mg daily. This was addressed below. Presently he is asymptomatic and physical examination was unremarkable except for slight overweight. Assessment/recommendations: 1-PFO with aneurysmal atrial septum and with positive bubble study showing right to left crossing based on the echocardiogram 2022. he is presently on aspirin and Eliquis which provide enough protection and presently and previously has had no TIAs. 2-history of DVT in the past on maintenance therapy with Eliquis without any bleeding complications 3-essential hypertension currently on benazepril and amlodipine along with hydrochlorothiazide under control. Renal function is normal 4-hyperlipidemia, LDL cholesterol 135 mg/dL May 2024 while taking 10 mg daily of atorvastatin. Given coronary atherosclerosis that we documented by cardiac catheterization we will switch to rosuvastatin 20 mg daily and will follow his lipids in couple months. 5-mild coronary atherosclerosis by cardiac catheterization April 2024. Continue aspirin and bring LDL cholesterol below 70 mg/dL.. 6-overweight, patient, more weight loss was recommended. 7-high risk medication anticoagulation using Eliquis without bleeding complications Review of Systems All other systems reviewed and are negative. Vitals: 07/02/24 1046 BP: 118/66 BP Location: Left arm Patient Position: Sitting Pulse: 68 Weight: 82.2 kg (181 lb 3.2 oz) Height: 1.715 m (5' 7.5 ) Objective Physical Exam Constitutional: Appearance: Normal appearance. HENT: Nose: Nose normal. Neck: Vascular: No carotid bruit. Cardiovascular: Rate and Rhythm: Normal rate. Pulses: Normal pulses. Heart sounds: Normal heart sounds. Pulmonary: Effort: Pulmonary effort is normal. Abdominal: General: Bowel sounds are normal. Palpations: Abdomen is soft. Musculoskeletal: General: Normal range of motion. Cervical back: Normal range of motion. Right lower leg: No edema. Left lower leg: No edema. Skin: General: Skin is warm and dry. Neurological: General: No focal deficit present. Mental Status: He is alert. Psychiatric: Mood and Affect: Mood normal. Behavior: Behavior normal. Thought Content: Thought content normal. Judgment: Judgment normal. Allergies Iodinated contrast media, Iodides, Sulfamethoxazole, and Sulfamethoxazole-trimethoprim Current Medications Current Outpatient Medications Medication Instructions amLODIPine (NORVASC) 5 mg, Daily apixaban (ELIQUIS) 2.5 mg, 2 times daily ascorbic acid (VITAMIN C) 1,000 mg, Daily aspirin 81 mg, Daily benazepril (LOTENSIN) 20 mg, Every evening cholecalciferol (Vitamin D-3) 25 MCG (1000 UT) tablet 1 tablet cyanocobalamin (VITAMIN B-12) 1,000 mcg, Daily hydroCHLOROthiazide (HYDRODiuril) 12.5 mg tablet 1 tablet, Daily rosuvastatin (CRESTOR) 20 mg, oral, Daily traMADol (ULTRAM) 50 mg, As needed Assessment/Plan 1. Coronary artery dise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 Alanine Aminotransferase Aspartate Aminotransferase Lipid Panel rosuvastatin (Crestor) 20 mg tablet Follow Up In Cardiology Alanine Aminotransferase Aspartate Aminotransferase Lipid Panel 2. Hypertension, unspecified type 3. Hyperlipidemia, unspecified hyperlipidemia type Alanine Aminotransferase Aspartate Aminotransferase Lipid Panel rosuvastatin (Crestor) 20 mg tablet Alanine Aminotransferase Aspartate Aminotransferase Lipid Panel 4. PFO (patent foramen ovale) ([facility]) 5. History of DVT (deep vein thrombosis) 6. High risk medication use 7. BMI 27.0-27.9,adult 8. Former smoker Scribe Attestation By signing my name below, I, Ankita Iyer LPN , Phu attest that this documentation has been prepared under the direction and in the presence of Teo Johnson MD. Provider Attestation - Scribe documentation All medical record entries made by the Scribe were at my direction and personally dictated by me. I have reviewed the chart and agree that the record accurately reflects my personal performance of the history, physical exam, discussion and plan. documented in this encounter [facility] Work Phone: 07-02-2024 Instructions Ankita Mata LPN - 07/02/2024 10:40 AM EDT Please bring all medicines, vitamins, and herbal supplements with you when you come to the office. Prescriptions will not be filled unless you are compliant with your follow up appointments or have a follow up appointment scheduled as per instruction of your physician. Refills should be requested at the time of your visit. BMI was above normal measurement. Current weight: 82.2 kg (181 lb 3.2 oz) Weight change since last visit (-) denotes wt loss 0.2 lbs Weight loss needed to achieve BMI 25: 19.5 Lbs Weight loss needed to achieve BMI 30: -12.8 Lbs Provided instructions on dietary changes. Stop Lipitor Start Crestor Lab work 2 months Follow up 9 months documented in this encounter [facility] Work Phone: 05-05-2024 Discharge summary [facility] enter 05-05-2024 Procedure note [facility] enter 05-01-2024 History of Present illness Narrative Patient: Yanelis Noriega : 1945 PCP: Blu Velez MD SUBJECTIVE This is a 79 y.o. male that presents today with a [...] deep vein thrombosis of distal leg, left ([facility]) 2010 BPH (benign prostatic hyperplasia) Colon polyp ETD (Eustachian tube dysfunction), left GERD (gastroesophageal reflux disease) HLD (hyperlipidemia) ([facility]) HTN (hypertension) ([facility]) Hx-TIA (transient ischemic attack) Lumbar spondylosis [...] feet ORTHO: Positive pain on palpation to toenails of the left 1,2,3,4,5 toes and right 1,2,3,4,5 toes ASSESSMENT 1. Pain due to onychomycosis of toenails of both feet 2. Xerosis cutis PLAN Discussed proper foot care with patient today. Debride nails in length and thickness digits 1 through 10 Patient education on condition and treatment of condition. Ashutosh Miller DPM documented in this encounter [facility] 03-26-2024 History of Present illness Narrative Subjective Yanelis Noriega is a 79 y.o. male Chief Complaint Annual Exam HPI Patient is in the office for follow-up for the problems noted below accompanied by his . He complains of fatigue and dyspnea on exertion for heavy physical work. He has controlled hypertension and denies any symptoms suggestive of TIA. His lab data from recent testing were reviewed and his numbers are on target. His examination reveals overweight but with 9 pound drop in his weight from previous visit. 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 Has had no previous cardiac evaluation for ischemia. His echocardiogram from 2022 was unremarkable except for PFO. He has had no recurrent VTE while he is anticoagulated. Assessment/recommendations: 1-PFO with aneurysmal atrial septum and with positive bubble study showing right to left crossing based on the echocardiogram 2022. he is presently on aspirin and Eliquis which provide enough protection and presently and previously has had no TIAs. 2-history of DVT in the past on maintenance therapy with Eliquis without any bleeding complications 3-essential hypertension currently on benazepril and amlodipine along with hydrochlorothiazide under control. Renal function is normal 4-hyperlipidemia on small dose of atorvastatin 10 mg daily. Followed by PCP 5-dyspnea on exertion of unknown significance. Treadmill stress test and coronary calcium score were recommended and he will be updated on the results. 6-overweight, patient lost 9 pounds since his last visit and encouragement for more weight loss was provided 7-high risk medication anticoagulation using Eliquis without bleeding complications Review of Systems Respiratory: Positive for shortness of breath. Vitals: 03/26/24 1136 BP: 104/60 BP Location: Right arm Patient Position: Sitting Pulse: 72 Weight: 82.1 kg (181 lb) Height: 1.715 m (5' 7.5 ) Objective Physical Exam Constitutional: Appearance: Normal appearance. HENT: Nose: Nose normal. Neck: Vascular: No carotid bruit. Cardiovascular: Rate and Rhythm: Normal rate. Pulses: Normal pulses. Heart sounds: Normal heart sounds. Pulmonary: Effort: Pulmonary effort is normal. Abdominal: General: Bowel sounds are normal. Palpations: Abdomen is soft. Musculoskeletal: General: Normal range of motion. Cervical back: Normal range of motion. Right lower leg: No edema. Left lower leg: No edema. Skin: General: Skin is warm and dry. Neurological: General: No focal deficit present. Mental Status: He is alert. Psychiatric: Mood and Affect: Mood normal. Behavior: Behavior normal. Thought Content: Thought content normal. Judgment: Judgment normal. Allergies Iodinated contrast media, Iodides, Sulfamethoxazole, and Sulfamethoxazole-trimethoprim Current Medications Current Outpatient Medications: amLODIPine (Norvasc) 5 mg tablet, Take 1 tablet (5 mg) by mouth once daily., Disp: , Rfl: apixaban (Eliquis) 2.5 mg tablet, Take 1 tablet (2.5 mg) by mouth 2 times a day., Disp: , Rfl: ascorbic acid (Vitamin C) 1,000 mg tablet, Take 1 tablet (1,000 mg) by mouth once daily., Disp: , Rfl: aspirin 81 mg EC tablet, Take 1 tablet (81 mg) by mouth once daily., Disp: , Rfl: atorvastatin (Lipitor) 10 mg tablet, Take 1 tablet (10 mg) by mouth once daily in the evening., Disp: , Rfl: benazepril (Lotensin) 20 mg tablet, Take 1 tablet (20 mg) by mouth once daily in the evening., Disp: , Rfl: [id number]-[id number] ORAL, Take 1 tablet by mouth early in the morning.., Disp: , Rfl: cholecalciferol (Vitamin D-3) 25 MCG (1000 UT) tablet, Take 1 tablet (25 mcg) by mouth., Disp: , Rfl: cyanocobalamin (Vitamin B-12) 1,000 mcg tablet, Take 1 tablet (1,000 mcg) by mouth once daily., Disp: , Rfl: hydroCHLOROthiazide (HYDRODiuril) 12.5 mg tablet, Take 1 tablet (12.5 mg) by mouth once daily., Disp: , Rfl: Assessment/Plan 1. Primary hypertension Follow Up In Cardiology 2. PFO (patent foramen ovale) ([facility]) Follow Up In Cardiology 3. Shortness of breath Stress Test CT cardiac scoring wo IV contrast 4. High risk medication use 5. History of DVT (deep vein thrombosis) 6. Dyslipidemia 7. Overweight 8. BMI 27.0-27.9,adult 9. Former smoker Scribe Attestation By signing my name below, Ankita Petty LPN, Scribe attest that this documentation has been prepared under the direction and in the presence of Teo Johnson MD. Provider Attestation - Scribe documentation All medical record entries made by the Scribe were at my direction and personally dictated by me. I have reviewed the chart and agree that the record accurately reflects my personal performance of the history, physical exam, discussion and plan. documented in this encounter [facility] Work Phone: 03-26-2024 Instructions Ankita Mata LPN - 03/26/2024 11:20 AM EST Please bring all medicines, vitamins, and herbal supplements with you when you come to the office. Prescriptions will not be filled unless you are compliant with your follow up appointments or have a follow up appointment scheduled as per instruction of your physician. Refills should be requested at the time of your visit. BMI was above normal measurement. Current weight: 82.1 kg (181 lb) Weight change since last visit (-) denotes wt loss -9 lbs Weight loss needed to achieve BMI 25: 19.3 Lbs Weight loss needed to achieve BMI 30: -13 Lbs Provided instructions on dietary changes Provided instructions on exercise. Calcium score GXT Same medications Follow up documented in this encounter [facility] Work Phone: 02-21-2024 History of Present illness Narrative Patient: Yanelis Noriega : 1945 PCP: Blu Velez MD SUBJECTIVE This is a 79 y.o. male that presents today with a [...] deep vein thrombosis of distal leg, left ([facility]) 2010 BPH (benign prostatic hyperplasia) Colon polyp ETD (Eustachian tube dysfunction), left GERD (gastroesophageal reflux disease) HLD (hyperlipidemia) ([facility]) HTN (hypertension) ([facility]) Hx-TIA (transient ischemic attack) Lumbar spondylosis [...] to onychomycosis of toenails of both feet 2. Xerosis cutis PLAN Discussed proper foot care with patient today. Debride nails in length and thickness digits 1 through 10 Patient education on condition and treatment of condition. Ashutosh Miller DPM documented in this encounter [facility] 02-13-2024 Evaluation note Diagnosis Onset Date Resolution Cerebral atherosclerosis acute February 13, 2024 1:19pm Hx of TIA (transient ischemic attack) and stroke acute February 13, 2024 1:19pm Hypercholesteremia acute Decemb er 2023 1:19pm Medicare annual wellness visit, subsequent acute February 13, 2024 1:19pm PFO (patent foramen ovale) acute February 13, 2024 1:19pm Primary hypertension acute Dece mber 2023 1:19pm Screening PSA (prostate specific antigen) acute February 13, 2024 1:19pm Simple chronic bronchitis acute February 13, 2024 1:19pm [facility] Work Phone: 1(109) 920-416010-17-2024 History of Present illness Narrative* Ashutosh Miller, [place] - 12/13/2023 11:30 AM EDT Patient: Yanelis Noriega : 1945 PCP: Blu [...] deep vein thrombosis of distal leg, left ([facility]) 2010 BPH (benign prostatic hyperplasia) Colon polyp ETD (Eustachian tube dysfunction), left GERD (gastroesophageal reflux disease) HLD (hyperlipidemia) ([facility]) HTN (hypertension) ([facility]) Hx-TIA (transient ischemic attack) Lumbar spondylosis [...] condition. 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 Follow these instructions at home: Take vsjq-ljs-ywpdrhs and prescription medicines only as told by [...] provider. Document Revised: 08/31/2021 Document Reviewed: 08/31/2021 [employer] Patient Education 2022 [employer]. Follow Up Care 2022 12:11:39 With:Fred TABARES, ALVARO Brizuela, URO Address: When: Unknown Comments:FELIZ [facility] 06-27-2021 History of Present illness Narrative* Lawanda Scott RN - 08/22/2020 12:36 PM EDT Pt discharged to home in stable condition with belongings Discharge instructions given Pt denies having any further questions at this time Personal items given to patient at discharge Patient/family state they have everything they were admitted with. * Arden aMharaj DO - 08/22/2020 11:53 AM EDT Images from the original note were not included. [facility] Office: [phone] Felton Molina DO, Saleem De Jesus DO, [...] Leon MD, Glen Dial MD, Rachel Mclean CNP, Malia Keane CNP, Arina Faustin CNP, CHIDI Montes,Kanu Gaxiola, CENTER MANAGER, Samantha Holden, CENTER MANAGER, Brianna Clark, CENTER MANAGER, Sridevi Mayo, CENTER MANAGER, Curt Arthur, CENTER MANAGER, Ronald Kaiser PA-C, Lucy Romero, MELVIN, Mary Ann Hernandez, CENTER MANAGER, Tri Marshall, CENTER MANAGER, Joanna Giordano, CENTER MANAGER, David Austin, CENTER MANAGER, Kenisha Lund, CENTER MANAGER, Martha Zeng, CENTER MANAGER [facility] IN-PATIENT SERVICE [facility] Progress Note 08/22/2020 11:53 AM Name: Yanelis Noriega Acct: [id number] Room: IP Day: 1 Admit Date: 08/21/2020 9:49 AM [...] No results for input(s): PROT, LABALBU, LABA1C, Y7TAVBA, N8WLUFT, FT4, TSH, AST, ALT, LDH, GGT, ALKPHOS, LABGGT, BILITOT, BILIDIR, AMMONIA, AMYLASE, LIPASE, LACTATE, CHOL, HDL, LDLCHOLESTEROL, CHOLHDLRATIO, TRIG, VLDL, XDL24QJ, PHENYTOIN, PHENYF, URICACID, POCGLU in the last 72 hours. ABG:No results found for: POCPH, PHART, PH, POCPCO2, GKC3PNA, PCO2, POCPO2, PO2ART, PO2, POCHCO3, KAY4GTG, HCO3, NBEA, PBEA, BEART, BE, THGBART, THB, YHD1VEI, GJWC4CDA, K0JWPCMG, O2SAT, FIO2 No results found for: SPECIAL [...] with evidence of patent foramen ovale with gatnq-sr-zxxi shunt. 4. Monitoring control blood pressure 5. Activity as tolerated 6. Discharge planning Arden Maharaj DO 08/22/2020 11:53 AM * Elisa Ferraro MD - 08/22/2020 11:15 AM EDT Ortho HD #2 Seen and evaluated with Dr. Maharaj present for discussion Patient had RTKR about 10 days ago, was seen in [place] [facility] [place] evening after very aggressive PTsession that day. [...] 08/22/2020 9:20 AM EDT Physical Therapy Facility/Department: [facility] Initial Assessment NAME: Yanelis Noriega [...] with significant increase in pain. went to [facility] via squad. pt states he received 2 [...] Assistance: Needs assistance Homemaking Responsibilities: Yes Active Tread Cutter: Yes Mode of Transportation: SUV Occupation: Retired [...] Reji Dailey, PT * Luis M Jewell [facility] - 08/21/2020 2:08 PM EDT Transitions of Care Pharmacy Service Medication Review The patient's list of current home medications has been reviewed and updated. Source(s) of information: Patient/Patient's /Sure Script/Patient warfarin regimen paper Please feel free to call with any questions about this encounter. Thank you. Luis M Jewell [facility] Transitions of Care Pharmacy Service Prior to [...] 2019 per stretcher in stable condition from [facility] Oriented to room and surroundings Bed [...] view & ask questions. [facility] Phone: 1(398) 969-318106-27-2021 Hospital course Narrative* Elisa Ferraro MD - 08/22/2020 11:35 [place] [address] DISCHARGE SUMMARY Patient: Yanelis Noriega Reg#: [id number] Date: 1945 Date of Admission & Surgery: 08/21/2020 Date of Discharge: 08/22/2020 Attending Surgeon: Elisa Ferraro M.D. PCP: Blu Velez, History and Hospital Course The patient has had severe pain and swelling in the knee, was evaluated in ED and admitted for Ortho eval. Medical evaluation and co-management is provided by the internet sales consultant medical staff, Dr. Maharaj,at this time. [...] 2 units of plasma in ED in [facility]; at this time his hemoglobin is [...] Complications: None Disposition: Home [facility] Phone: 1(804) 662-207106-15-2021 History of Present illness Narrative* Stella Jacobs [...] no needs this visit) Additional Comments: Pt mary carmeno'd good safety and indp throughout shower, dressing, and grooming routine Balance Sitting Balance: Supervision Standing Balance: Contact guard assistance (CGA fading to SBA) Standing Balance Time: Pt mary carmeno'd good (-) standing balance during functional mob [...] maintain strength to assist with self care. correction goals correction goal 1: Pt to be I with sugical precuations, recommendations for AE/DME and fall prevention/EC/WS education with use of handouts as needed. Patient Goals Patient goals : To go home! Therapy Time Individual Concurrent Group Co-treatment Time In 951 (plus 10 min (11:10-11:20) to discuss tub transfer bench) Time Out 1100 Minutes 68 Azra Hankins OT * Elisa Ferraro MD - 08/10/2020 11:07 AM EDT Ortho POD # 1 and Discharge Feels fine now, stayed overnight bc of confusion post anesthesia, and complete numbness of the right (operative) foot. Was unable to participate in PT. His pain is well controlled orally today Afebrile, Vital signs stable Bard dressing intact; no skin redness at the [...] like something is in it. 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 To be indep. With bed mob. Using sheet as leg manager planning for surgical LE as needed Short Term [...] discipline's goals. 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 geological technical officer goals geological technical officer goal 1: Pt to be I with sugical precuations, recommendations for AE/DME and fall prevention/EC/WS education with use of handouts as needed. Patient Goals Patient goals : To go home! Therapy Time Individual Concurrent Group Co-treatment Time In [facility]8 Time Out 1647 Minutes 49 tx time: 38 min Co-treatment with PT warranted first time up day of surgery. Cotx due to potential risk of decreased sensation, muscle control and proprioception from spinal epidural and/or regional block. Decreasedsafety and independence requiring 2 skilled therapy professionals to address individual discipline's goals. Demi HUERTA OT * Naun Byers RN - 08/09/2020 [...] AM EDT Pt has percocet escribed to [facility] in [place], [place]. Pt will resume home medication coumadin [...] Dr. Ferraro for platelets documented in this [facility] [employer] Phone: 1(768) 567-393906-15-2021 Hospital course Narrative* Elisa Ferraro MD - 08/10/2020 11:12 [place] [address] DISCHARGE SUMMARY Patient: Yanelis Noriega Reg#: [id number] Date: 1945 Date of Admission & Surgery: 08/09/2020 Date of Discharge: 08/10/2020 Attending Surgeon: Elisa Ferraro M.D. PCP: Blu Velez DO History and Hospital Course The patient has had severe pain and arthritis of the knee, unresponsive to conservative treatment and is now admitted for joint replacement. Medical evaluation and postoperative co-management is provided by the internet sales consultant medical staff. The patient underwent knee [...] Complications: None Disposition: Home [facility] this [facility] Phone: 1(361) 725-273206-15-2021 Hospital Discharge instructions* Discharge Instr - Diet* [...] at most local grocery stores, pharmacies, and chain [employer]-stores. If you have any questions about your diet or nutrition, call the hospital and ask for the dietitian. * Additional Instructions* Naun Byers RN - 08/09/2020 Images from the original note were not included. ANY ORTHOPEDIC QUESTIONS OR ANY OTHER CONCERNS YOU MAY CALL THE ORTHOPEDIC COORDINATOR: NAUN BYERS RN, BSN [phone] [email or web address] YOU MAY ALSO MESSAGE ME ON GET [...] orthopedic appointment with surgeon Discharge instructions video: [email or web address] Keep it Clean Post-Operative Home instructions These instructions are to help you have the best possible recovery after your surgical procedure. [facility] is here to support you. If you have questions, call [phone] Sunday through Sunday from 7:30AM to 8:30PM to speak to a nurse. If you need to speak to someone outside of these hours, call your physician. Incision Do s and Don ts Do wash hands before and after dressing changes or when you have had any contact with your incision. Use hand lead electrical controls engineer or antibacterial soap. Do keep your incision [...] Care Everywhere. * Hip Replacement (Anterior): Post-op (Emirati) * Stroke (Emirati) * Constipation (Emirati) * DVT (Deep Vein Thrombosis): General Info (Emirati) * acetaminophen and oxycodone (Emirati) * warfarin (oral) (Emirati) * docusate (oral/rectal) (Emirati) * Enoxaparin (Lovenox) (Emirati) documented in this [facility] Phone: 1(661) 387-707705-20-2021 History of Present illness Narrative* Naun Byers RN - 07/15/2020 9:30 AM EDT [facility] Joint Replacement Pre-surgical Assessment Scheduled Surgery Date: 08/09/2020 Surgery Time: 1045 Surgeon: JASMINE Procedure: right Total Knee Primary Insurance Coverage MEDICARE PART A&B, 2- [facility] SUPP Pre-op class attended YES 07/15/2020. [...] done History of transient ischemic attack (TIA) 6789-5149 found on a brain scan at [facility] (perpatient) Hx of blood clots 2010 left leg Hyperlipidemia Hypertension Snores Smoking history: none Alcohol history: Never drinks Concerns prior to surgery: PT HAS A FWW. * Kirstin Singer RN - 07/15/2020 9:30 AM EDT Patient watched the Understanding a Nerve Block video during the PAT visit today. documented in this [facility] Phone: chief complaint Narrative - ReportedYANELIS NORIEGA is being seen for an initial evaluation of Laureano evaluation.[facility]- Judy 250 DO Work Phone: Chivk complaint Narrative - Reported* YANELIS NORIEGA is [...] neurological symptoms. He had transthoracic echocardiogram in [facility] which she read possible PFO. There was [...] I did review the echo report from [facility] and the other imaging studies. * Assessment/recommendations: [...] to lose weight with diet and exercise [facility] 250 DO Work Phone: Discharge summary Author Teo Johnson [facility] Note Date/Time May 05, 2024 4:1 5pm [facility] [address] [place] [address] Discharge Summary Signed Patient: Yanelis Noriega MR#: [id number] : 1945 Acct:[id number] Age/Sex: 79 / M Adm Date: 5 Loc: Room: Attending Dr: Teo Johnson MD Copies to: DO Teo Hill MD, [facility]~ Providers Date of Discharge: 05/05/24 Discharging Provider: Teo Johnson Primary Care Provider: Blu Velez Discharge Diagnosis Final Diagnosis Final Discharge Diagnosis: Coronary atherosclerosis Summary Hospital Course Hospital course: Outpatient procedure Time Spent with Patient Time spent providing/coordinating discharge services (# min): 20 Surgeries and Procedures Operation Date: 05/05/24 11:15 Actual Procedures p CL [facility] Angio - Teo Johnson MD Discharge Plan Discharge Plan Patient Disposition: Home Activity: Ambulate as Tolerated Diet: Low-Sodium and Low-Cholesterol Additional Instructions: DISCHARGE INSTRUCTIONS FOR CARDIAC PRECIPITATE WASHER PROCEDURE: Heart Cath The following instructions have been prepared to help you care for yourself, or be cared for upon your return home. 1. You were given conscious sedation. Do not operate a vehicle, power tools, make important decisions, or drink alcohol for 24 hours. You might be drowsy orlight headed. Return to the Emergency Room if you have trouble breathing, walking or nausea and vomiting. 2. FOR BLEEDING: Apply continuous pressure to the site and call 911. 3. Operative Site Care: Keep the dressing clean and dry. You may change the dressing only if soiled or wet. You may remove the dressing the following morning. You may wash over the puncture site in the shower. If the puncture site is at the wrist no soaking for 3 days. Some bruising or slight swelling may be present. -Signs of infection are redness, warmth, swelling, getting more sore, colored drainage, fever or chills. -Should the arm or leg become cold, numb, blue or white, call the cold meat cook immediately. 4. ACTIVITY: You are advised to go directly home from the hospital. Restrict your activities for the rest of the day. Resume light or normal activities tomorrow. Do not engage in any activity that will stress the puncture site. Avoid heavy lifting (over 15 lbs.), straining or bending at the catheter site for 48 hours after discharge. If the puncture site is at the wrist do not manipulate wrist for 24 hours and no lifting more than 3 lbs for 3 days. 5. DIET:You may eat your regular diet when you desire. 6. MEDICATIONS: Resume your daily prescription schedule. Prescriptions may be sent with you if needed. Use as directed. When taking pain medications, you may experience dizziness or drowsiness. Do not drink alcohol or drive when taking pain medications. 7. If you should experience episodes of angina e.g. chest discomfort, heaviness, tightness, pressure, burning, with or without radiation to the neck, jaws, arms, or back- Use 1 Nitrostat under your tongue every 5-10 minutes, and up to 3 tablets. If no relief- Call 911 and go to the nearest Emergency Room. -Notify the office for recurrent angina, chest pain or other concerns. You may NOT drive yourself home! Follow the medication instructions provided on your discharge. If the dosages and instructions on this sheet differ from the dosage and instructions on the bottle, follow the instructions on the bottle. [facility] is not responsible for incorrect prescription information provided by thepatient during their visit. Do not stop your medications without consulting your health care provider. Please take the list with you to your next doctor's appointment. Instructions: Know your Meds Prescriptions: Continued albuterol sulfate 90 mcg/actuation HFA aerosol inhaler See Rx Instructions .ROUTE .COMPLEX Qty: 8.5 11RF Dose Instruction: INHALE 2 PUFFS BY MOUTH EVERY 6 HOURS NEEDED FOR COUGH AND WHEEZING Rx Instructions: INHALE 2 PUFFS BY MOUTH EVERY 6 HOURS NEEDED FOR COUGH AND WHEEZING atorvastatin 10 mg tablet 10 mg PO QPM 90 Days Qty: 90 3RF amlodipine 5 mg tablet 5 mg PO DAILY Qty: 90 3RF famotidine 40 mg tablet 40 mg PO DIRECTED prednisone 20 mg tablet 20 mg PO DIRECTED triamcinolone acetonide 0.5 % cream 1 applic topical BID PRN (Reason: skin irritation) benazepril 20 mg tablet 20 mg PO QPM hydrochlorothiazide 12.5 mg tablet 12.5 mg PO QAM diphenhydramine HCl 25 mg capsule 25 mg PO DIRECTED cholecalciferol (vitamin D3) [Vitamin D3] 25 mcg (1,000 unit) capsule 1,000 unit PO DAILY cyanocobalamin (vitamin B-12) [Vitamin B-12] 1,000 mcg tablet 1,000 mcg PO DAILY tramadol 50 mg tablet 25 mg PO DAILY PRN (Reason: pain) ascorbic acid (vitamin C) 1,000 mg capsule 1 g PO DAILY albuterol sulfate 2.5 mg /3 mL (0.083 %) solution for nebulization 2.5 mg inhalation Q6HR PRN (Reason: shortness of breath or wheezing) 30 Days Qty: 75 1RF aspirin 81 mg tablet,delayed release (DR/EC) 81 mg PO DAILY fluticasone propion-salmeterol [Wixela Inhub] 250-50 mcg/dose blister with device 1 inh inhalation BID PRN (Reason: shortness of breath or wheezing) Held Eliquis 2.5 mg tablet 2.5 mg PO BID Hold Instructions: Resume on 05/06/24. Follow Up: Teo Johnson MD [Active Staff] - 07/02/24 10:40 am Exam Physical Exam Vital Signs: Temp Pulse Resp BP Pulse Ox O2 Del Method 98 F 74 18 136/75 97 Room Air 05/05/24 09:06 05/05/24 09:06 05/05/24 09:06 05/05/24 09:06 05/05/24 09:06 05/05/24 09:28 Documented By: Teo Johnson MD, [facility] 5 1217 Signed By: <Electronically signed by [facility] Teo Johnson> 05/05/[address] [facility] Work Phone: Evaluation + Plan note No data available for this section [facility] evaluation note* Diagnosis Primary osteoarthritis of right knee- Primary Primary localized osteoarthrosis, lower leg S/P total knee arthroplasty, right History of DVT (deep vein thrombosis) Personal history of venous thrombosis and embolism documented in this encounter [facility] Phone: evaluation note* Diagnosis Hemarthrosis of right [...] use of anticoagulants documented in this encounter [facility] Phone: evalslckcf noteNo [facility] [employer] Other Evaluation note* Diagnosis Abnormal echocardiogram Nonspecific (abnormal) findings on radiological and other examination of other intrathoracic organs Cerebrovascular accident (CVA), unspecified mechanism (CMS/HCC) documented in this encounter [facility] Work Phone: Evaluation note* Diagnosis Abnormal echocardiogram Nonspecific (abnormal) findings on radiological and other examination of other intrathoracic organs Cerebrovascular accident (CVA), unspecified mechanism (CMS/HCC) documented in this encounter [facility] Work Phone: Evaluation noteNo assessment information available [facility] Work Phone: Evaluation note* Diagnosis Onset Date Resolution Status Chronic obstructive pulmonar y disease with (acute) exacerbation noneactive Acute bronchitis due to other specified organisms noneactive [facility] Work Phone: Evaluation note* Diagnosis Onset Date Resolution Status Chronic obstructive pulmonar y disease with (acute) exacerbation noneactive Acute bronchitis due to other specified organisms noneactive Acute bronchitis due to other specified organisms noneactive Asthma noneactive Chronic obstructive pulmonar y disease with (acute) lower respiratory infection noneactive Acute exacerbation of chroni c obstructive airways disease noneactive [facility] Work Phone: Evaluation note* Diagnosis Onset Date Resolution Status Cerebral atherosclerosis acu te Hx of TIA (transient ischemic attack) and stroke acute Hypercholesteremia acute PFO (patent foramen ovale) a cute Primary hypertension acute Simple chronic bronchitis ac mark [facility] Work Phone: Evaluation note* Diagnosis Onset Date Resolution Status Cerebral atherosclerosis acu te Hx of TIA (transient ischemic attack) and stroke acute Hypercholesteremia acute PFO (patent foramen ovale) a cute Primary hypertension acute Simple chronic bronchitis ac mark History of left knee replacement acute Painful total knee replacement, left acute [facility] Work Phone: Evaluation note* Diagnosis Onset Date Resolution Status History of left knee replacement acute Painful total knee replacement, left acute [facility] Work Phone: Evaluation note* Diagnosis Pain due to onychomycosis of toenails of both feet- Primary documented in this encounter [facility] HealthcareEvaluation note* Diagnosis Onset Date Resolution Status Hypercoagulable state acute Paronychia acute Toe pain, left acute [facility] Work Phone: Evaluation note* Diagnosis Pain due to onychomycosis of toenails of both feet- Primary Xerosis cutis Other specified disease of sebaceous glands documented in this encounter [facility] HealthcareEvaluation note* Diagnosis Primary hypertension- Primary Unspecified essential hypertension PFO (patent foramen ovale) ([facility]) Ostium secundum type atrial septal defect Shortness of breath High risk medication use History of DVT (deep vein thrombosis) Dyslipidemia Other and unspecified hyperlipidemia Overweight BMI 27.0-27.9,adult Former smoker Personal history of tobacco use, presenting hazards to health documented in this encounter [facility] Work Phone: Evaluation note* Diagnosis Shortness of breath documented in this encounter [facility] Work Phone: Evaluation note* Diagnosis Shortness of breath documented in this encounter [facility] Work Phone: Evaluation note* Diagnosis Coronary artery dise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 Hypertension, unspecified type Hyperlipidemia, unspecified hyperlipidemia type PFO (patent foramen ovale) ([facility]) Ostium secundum type atrial septal defect History of DVT (deep vein thrombosis) High risk medication use BMI 27.0-27.9,adult Former smoker Personal history of tobacco use, presenting hazards to health documented in this encounter [facility] Work Phone: Evaluation note* Diagnosis Onset Date Resolution Status Admit Date Anticoagulated on Coumadin acute August 04, 2024 1:14pm Cerebral atherosclerosis acute August 04, 2024 1:14pm Hx of TIA (transient ischemi c attack) and stroke acute August 04 1:14pm Hypercholesteremia acute August 042024 1:14pm Overweight acute August 04, 2024 1:14pm PFO (patent foramen ovale) acute August 04, 2024 1:14pm Primary hypertension acute August 04, 2024 1:14pm Simple chronic bronchitis acute August 04, 2024 1:14pm Suspected sleep apnea acute Jaxon e 2024 1:14pm [facility] Work Phone: Evaluation note* Diagnosis Neoplasm of unspecified behavior of bone, soft tissue, and skin documented in this encounter [facility] general Narrative - Reported* Type Description Date Medical History High Cholesterol Medical History Hypertension Medical History Arthritis Surgical History Left Total Knee 2016 Surgical History Right shoulder surgery Surgical History Major back surgery (Dr. Salinas) Surgical History hernia Hospitalization History SEE SURGICAL HX [employer] Other Hospital Discharge instructions* Attachments The following attachments cannot be sent through Care Everywhere. * TKR (Total Knee Replacement): Post-op (Emirati) * apixaban (Emirati) [facility] Work [facility]: Hospital Discharge instructions Additional Instructions DISCHARGE INSTRUCTIONS FOR CARDIAC PRECIPITATE WASHER PROCEDURE: Heart Cath The following instructions have been prepared to help you care for yourself, or be cared for upon your return home. 1. You were given conscious sedation. Do not operate a vehicle, power tools, make important decisions, or drink alcohol for 24 hours. You might be drowsy or light headed. Return to the Emergency Room if you have trouble breathing, walking or nausea and vomiting. 2. FOR BLEEDING: Apply continuous pressure to the site and call 911. 3. Operative Site Care: Keep the dressing clean and dry. You may change the dressing only if soiled or wet. You may remove the dressing the following morning. You may wash over the puncture site in the shower. If the puncture site is at the wrist no soaking for 3 days. Some bruising or slight swelling may be present. -Signs of infection are redness, warmth, swelling, getting more sore, colored drainage, fever or chills. -Should the arm or leg become cold, numb, blue or white, call the cold meat cook immediately. 4. ACTIVITY: You are advised to go directly home from the hospital. Restrict your activities for the rest of the day. Resume light or normal activities tomorrow. Do not engage in any activity that will stress the puncture site. Avoid heavy lifting (over 15 lbs.), straining or bending at the catheter site for 48 hours after discharge. If the puncture site is at the wrist do not manipulate wrist for 24 hours and no lifting more than 3 lbs for 3 days. 5. DIET:You may eat your regular diet when you desire. 6. MEDICATIONS: Resume your daily prescription schedule. Prescriptions may be sent with you if needed. Use as directed. When taking pain medications, you may experience dizziness or drowsiness. Do not drink alcohol or drive when taking pain medications. 7. If you should experience episodes of angina e.g. chest discomfort, heaviness, tightness, pressure, burning, with or without radiation to the neck, jaws, arms, or back- Use 1 Nitrostat under your tongue every 5-10 minutes, and up to 3 tablets. If no relief- Call 911 and go to the nearest Emergency Room. -Notify the office for recurrent angina, chest pain or other concerns. You may NOT drive yourself home! Follow the medication instructions provided on your discharge. If the dosages and instructions on this sheet differ from the dosage and instructions on the bottle, follow the instructions on the bottle. [facility] is not responsible for incorrect prescription information provided by the patient during their visit. Do not stop your medications without consulting your health care provider. Please take the list with you to your next doctor's appointment.[facility] Work Phone: Progress note No data available for this section [facility] reason for referral (narrative)* Reason Referral for possibl e ASD with history of cerebral infarction and lower extremity DVT. 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 Referred Provider Cristofer Gómez Referred Address [address],[place], [place],[address] Referred Provider Specialty Cardiology Referral Priority Routine [...] am, Carotid US, MRA brain and labs [employer] Other Reason for visit Narrative* Cardiac Stress Testing (Routine) - Authorized Specialty Diagnoses / Procedures Referred By Contac t Referred To Contact Cardiology Diagnoses Shortness of breath Procedures Stress Test CA CV STRS TST XERS&/OR RX CONT ECG TRCG ONLY Teo Johnson MD [address] [place] [address] 2, David [address] [place] [address] Phone: tel: fax: Referral ID Status Reason Start Date Expiration Date V isits Requested Visits Authorized [id number] Authorized 03/26/2024 03/26/2025 1 1 [facility] Work Phone: Reason for visit Narrative* Imaging (Routine) - Authorized Specialty Diagnoses / Procedures Referred By Contduncan t Referred To Contact Radiology Diagnoses Shortness of breath Procedures CT cardiac scoring wo IV contrast Teo Johnson MD [address] [facility] 2, [address] [place] [address] Phone: tel: fax: Referral ID Status Reason Start Date Expiration Date Visits Requested Visits Authorized [id number] Authorized Perform Procedure 03/26/2024 03/26/2025 1 1 [facility] Work Phone: Summary Purpose Family History No Family History Records FoundUnknown Family Member Name Dates Details Family history [...] Recorded Date/T es father Unknown mother Unknown Relationship Condition Age at Onset Recorded Date/T es father Dementia Unknown Unknown mother Diabetes mellitus Unknown Myasthenia gravis Unknown Cerebrovascular accident (CVA) Unknown sister Malignant neoplasm of colon Unknown brother Blood disorder Unknown brother Myocardial infarction Unknown brother Unknown History of heart valve replacement Unknow n Advance Directives No Advanced Directives Records FoundLatest Code Status on File Code Status Date [...] mechanism (CMS/HCC) Procedures Transthoracic Echo (TTE) Limited CA ECHO TRANSTHORC R-T 2D W/WO M-MODE REC F-UP/LMTD CA DOP ECHOCARD COLOR FLOW VELOCITY MAPPING CA DOP ECHOCARD PULSE WAVE W/SPECTRAL F-UP/LMTD STD Teo Johnson MD [address] [facility] 2, [address] [address] Referral ID Status Reason Start Date Expiration Date Visits Requested Visits Authorized [id number] Authorized Perform Procedure 3 12/14/2023 1 1 Chief Complaint and Reason for Visit Chief Complaint Wellness Sore Throat, Congestion- [phone] Chief Complaint Wellness Sore Throat, Congestion- [phone] Wheezy, Congested-COVID Negative Reason for Visit Chronic obstructive pulmonary disease with (acute) exacerbation Acute bronchitis due to other specified organisms Chief Complaint Sore Throat, Congest ion- [phone] Wheezy, Congested-COVID Negative Sick- Wheezy Reason for [...] Hypercoagulable stat e Paronychia Toe pain, left Chief Complaint Admit Date Wellness February 13, 2024 1:19pm CC Adult Risk Stratification February 142023 11:36am elevated coranary calcuim score April 10:00am Reason for Visit Admit Date Cerebral atherosclerosis February 13, 2024 1:19pm Hx of TIA (transient ischemic attack) an d stroke February 13, 2024 1:19pm Hypercholesteremia February 13, 2024 1:19pm Medicare annual wellness visit, subseque nt February 13, 2024 1:19pm PFO (patent foramen ovale) January 1:19pm Primary hypertension February 13, 2024 1:19pm Screening PSA (prostate specific antigen ) February 13, 2024 1:19pm Simple chronic bronchitis February 13, 2024 1:19pm Chief Complaint Admit Date Wellness February 13, 2024 1:19pm CC Adult Risk Stratification February 142023 11:36am elevated coranary calcuim score April 10:00am elevated coranary calcuim score May 052024 9:04am Chief Complaint Admit Date 6 month f/u August 04, 2024 1:14p m Reason for Visit Admit Date Anticoagulated on Coumadin August 04 1:14pm Cerebral atherosclerosis August 04, 2024 1:14pm Hx of TIA (transient ischemic attack) an d stroke August 04, 2024 1:14pm Hypercholesteremia August 04, 2024 1:14p m Overweight August 04, 2024 1:14p m PFO (patent foramen ovale) August 04 1:14pm Primary hypertension August 04, 2024 1:14 pm Simple chronic bronchitis August 04, 2024 1:14pm Suspected sleep apnea August 04, 2024 1:1 4pm Additional Source Comments (unrecognized sect ion and content) No Status Records FoundNo Status Records FoundNo Status Records FoundNo Status Records FoundNo Status Records FoundNo Status Records FoundNo Status Records FoundNo Status Records FoundNo Status Records FoundNo Status Records Found INFORMATION SOURCE (unrecogn ized section and content) DATE CREATED AUTHOR 08/14/[address] [facility] DATE CREATED AUTHOR AUTHOR'S ORGANIZ ATION 08/22/2020 [facility] DATE CREATED AUTHOR AUTHOR'S ORGANIZ ATION 02/24/2022 [facility] DATE CREATED AUTHOR AUTHOR'S ORGANIZ ATION 08/31/2022 Sharon Prince [facility] DATE CREATED AUTHOR AUTHOR'S ORGANIZ ATION 11/10/2022 [facility] DATE CREATED AUTHOR AUTHOR'S ORGANIZ ATION 11/12/2022 [employer] DATE CREATED AUTHOR AUTHOR'S ORGANIZ ATION 05/05/2024 [facility] DATE CREATED AUTHOR AUTHOR'S ORGANIZ ATION 05/28/2024 [facility] DATE CREATED AUTHOR AUTHOR'S ORGANIZ ATION 07/04/2024 [facility] DATE CREATED AUTHOR AUTHOR'S ORGANIZ ATION 08/19/2024 [facility] EPIC Reason for Visit (unrecogniz ed section and content) Status Reason Specialty Diagnoses / Procedures Referre d By Contact Referred To Contact Diagnoses Osteoarthritis of right knee DX RIGHT KNEE OA Procedures CA TOTAL KNEE ARTHROPLASTY RIGHT KNEE TOTAL ARTHROPLASTY- Elisa Zhang MD [address] [facility] [place] [address] [facility] Specialty Diagnoses / Procedures Referred By Contac t Referred To Contact Cardiology Diagnoses Abnormal echocardiogram Cerebrovascular accident (CVA), unspecified mechanism (CMS/HCC) Procedures Transthoracic Echo (TTE) Limited CA ECHO TRANSTHORC R-T 2D W/WO M-MODE REC F-UP/LMTD CA DOP ECHOCARD COLOR FLOW VELOCITY MAPPING CA DOP ECHOCARD PULSE WAVE W/SPECTRAL F-UP/LMTD STD Teo Johnson MD [address] [place] [address] 2, [address] [address] Referral ID Status Reason Start Date Expiration Date Visits Requested Visits Authorized [id number] Authorized Perform Procedure 3 12/14/2023 1 1 Reason Comments Toenail Care Non DM Nails Reason Comments Toenail Care Non dm nail care Reason Comments Annual Exam Specialty Diagnoses / Procedures Referred By Contac t Referred To Contact Cardiology Diagnoses PFO (patent foramen ovale) ([facility] Abnormal echocardiogram Procedures Follow Up In Cardiology Teo Johnson MD [address] [facility] 2, [address] [address] Phone: tel: fax: Teo Johnson MD [address] [place] [address] 2, [address] [address] Phone: tel: fax: Referral ID Status Reason Start Date Expiration Date V isits Requested Visits Authorized [id number] Authorized 03/26/2023 03/25/2024 1 1 Reason Comments Toenail Care Non dm nial care Reason Comments Post-Cath 05/05 Ordered Prescriptions (unrec ognized section and content) [...] (Given - Provider: Darío Yancey APRN - COUNSELING AIDE) docusate sodium (COLACE) capsule 100 mg 100 [...] or Central Line = 20 mL/lumen, Post-op 2146 (Given - Provider: Shey Jackson RN) 0916 [...] (7-10), Starting on Sun08/09/20 at 2106, Post-op 214 (Given - Provider: Shey Jackson RN) 0517 (Given - Provider: Shey Jackson RN) oxyCODONE (ROXICODONE) immediate release tablet 5 mg(Linked Group 3) 5 mg, Oral, EVERY 4 HOURS PRN, Pain Moderate (4-6), Starting on Sun08/09/20 at 2106, Post-op 214 (See Alternative - Provider: Shey Jackson RN) [...] 20 mL/lumen 1147 (Given - Provider: Lawanda Scott, ILYA)2036 (Given [...] 1200 (See Alternative - Provider: Lawanda Scott RN)2035 (See Alternative - Provider: Katherine Hooper RN) 0822 (Given - Provider: Lawanda Scott RN)1228 (Given - Provider: Lawanda Scott RN) oxyCODONE-acetaminophen (PERCOCET) 5-325 MG per tablet 2 tablet(Linked Group 4) 2 tablet, Oral, EVERY 4 HOURS PRN, Pain Severe (7-10), Starting on 08/21/20 at 1004, Maximum dose of acetaminophen is 4000 mg from all sources in 24 hours. 1200 (Given - Provider: Lawanda Scott RN)2035 (Given - Provider: Katherine Hooper RN) 0822 [...] to tolerate oral tablet. K Lab R [facility] ement Action 3.1 to 3.5 40 [...] Active Member Role Status Dates Blu Velez , DO Primary Care Provider Active Team Status: Inactive Member Role Status Dates Blu Velez DO Primary Care Provide r, Attending Provider Active Start: August 04, 2024 End: August 04, 2024 Team Status: Active Member Role Status Dates Blu Velez DO Primary Care Provide r, Attending Provider Active Start: February 09, 2024 Team Status: Inactive Member Role Status Dates Blu Velez DO Primary Care Provide r, Attending Provider Active Start: February 13, 2024 End: February 13, 2024 Team Status: Active Member Role Status Nivia Velez DO Primary Care Provide r, Attending Provider Active Start: February 15, 2024 Team Status: Inactive Member Role Status Dates Blu Velez DO Primary Care Provider Active Start: May 02, 2024 End: May 02, 2024 Teo Johnson MD Attending Provider Active St art: May 02, 2024 End: May 02, 2024 Team Status: Inactive Member Role Status Nivia Velez DO Primary Care Provider Active Start: [...] 2023 Team Status: Inactive Member Role Status Nivia Velez DO Primary Care Provide r, Attending Provider Active Start: April 19, 2023 End: April 19, 2023 Team Status: Inactive Member Role Status Dates Blu Velez DO Primary Care Provide r, Attending Provider Active Start: May 10, 2023 End: May 10, 2023 Cranberry Sorter Relationship Specialty Start Date End Date Blu Velez DO [address] [place] [address] PCP - General 11/09/22 Cranberry Sorter Relationship Specialty Start Date End Date Blu [...] Attending Provider Active Start: September 12, 2023 Cranberry Sorter Relationship Specialty Start Date End Date Blu Velez MD [address] [place] [id number] PCP - General Internal Medicine 03/01/23 Cranberry Sorter Relationship Specialty Start Date End Date Blu Velez MD [address] [place] [id number] PCP - General Internal Medicine 03/01/23 Team Status: Inactive Member Role Status Dates Blu Velez DO Primary Care Provide r, Attending Provider Active Start: December 19, 2023 End: December 19, 2023 Cranberry Sorter Relationship Specialty Start Date End Date Blu Velez MD [address] [place] [address] PCP - General Internal Medicine 03/01/23 Cranberry Sorter Relationship Specialty Start Date End Date Blu Velez MD [address] [place] [address] PCP - General Internal Medicine 03/01/23 Cranberry Sorter Relationship Specialty Start Date End Date Blu Velez DO [address] [place] [address] PCP - General Internal Medicine 03/26/24 Cranberry Sorter Relationship Specialty Start Date End Date Blu Velez DO [address] [place] [address] PCP - General Internal Medicine 03/26/24 Cranberry Sorter Relationship Specialty Start Date End Date Blu Velez DO [address] [place] [address] PCP - General Internal Medicine 03/26/24 Team Status: Inactive Member Role Status Dates Blu Velez DO Primary Care Provider Active Start: May 05, 2024 End: May 05, 2024 Teo Johnson MD Attending Provider Active St art: May 05, 2024 End: May 05, 2024 Cranberry Sorter Relationship Specialty Start Date End Date Blu Velez DO [address] [place] [address] PCP - General Internal Medicine 03/26/24 Cranberry Sorter Relationship Specialty Start Date End Date Blu Velez DO [address] [place] [address] PCP - General Internal Medicine 03/01/23 Cranberry Sorter Relationship Specialty Start Date End Date Blu Velez DO [address] [place] [address] PCP - General Internal Medicine 03/01/23 Goals (unrecognized section and content) Goals may [...] BE BASED ON THE PRIMARY CLINICAL RECORDS. [employer] [facility]. provides no warranty or guarantee of the accuracy or completeness of information in this document.
[2024-09-23 08:49] LABS: Alanine Aminotransferase 22 U/L (16-63); Aspartate Amino Transferase 16 U/L (15-37); Cholesterol 146 mg/dL (<=200); HDL Cholesterol 48 mg/dL (40-60); Triglycerides 82 mg/dL (<=150); VLDL CHOLESTEROL 16.4 mg/dL
== END 2024-09-23 08:03 | disposition home or self-care (01) ==
LOC: LAB 08:02
PROVIDERS: PCP Internal Medicine; Visit Provider Internal Medicine Cardiovascular Disease
DX: E78.5 Hyperlipidemia, unspecified (principal); I25.10 Atherosclerotic heart disease of native coronary artery without angina pectoris
CPT/HCPCS: 36415; 80061; 84450; 84460

== ENCOUNTER 2024-09-23 20:55 | Outpatient (OUT) | payer MEDICARE, SELFPAY ==
--- OUTSIDE RECORDS SUMMARY | 2024-09-23 21:05 | XMS_ITS | CCD ---
Author Organization [facility] Care Team Providers Care Antenna Rigger Name Role Phone CURT CHOWDHURY Unavailable Unavailable [...] Care Unavailable CL VARNER, DR JULIANA [employer] Unavailabl e CLOVIS, [...] Provider MD Yogesh Jacob II Attending Provider [phone] Blu Velez MD Primary Care Provider Blu Velez DO Primary Care Provider TEO JOHNSON Referring Unavailable BLU VELEZ Primary Care Unavailable TEO JOHNSON Referring Unavailable BLU VELEZ Primary Care Unavailable Blu Velez DO Primary Care Provider Teo Johnson MD Attending Provider Teo Johnson Admitting Unavailable Teo Johnson Attending [...] Attending Unavailable ASHUTOSH MILLER Attending Unavailable LEAH SANFORD Attending Unavailable ASHUTOSH MILLER Attending Unavailable ASHUTOSH MILLER Attending Unavailable ASHUTOSH MILLER Attending Unavailable Allergies Allergy Classification Reported Allergen(s) Allergy Type Date of Onset Reaction(s) Facility Sulfamethoxazole / Trimethoprim (3 sources) Sulfamethoxazole / Trimethoprim Drug Allergy Rash [facility] Unclassified (9 sources) Iodides; Translations: [IODIDES] Propensity to adverse reactions to drug Hives, Itching [facility] (10 sources) Contrast media; Translations: [CONTRAST DYE] Propensity to adverse reactions to drug (disorder) 011 AOF, Unknown [facility] Repository (9 sources) sulfamethoxazole / trimethoprim; Translations: [SULFAMETHOXAZOLE-T RIMETHOPRIM] Drug Allergy 016 Hives, Rash [facility]ository (1 source) Iodine (And Iodine Containting Drugs) Drug allergy (disorder) [facility] Repository (1 source) Sulfamethoxazole / Trimethoprim Drug Allergy 015 [facility] Rep[facility] (10 sources) Sulfamethoxazole / Trimethoprim Drug Allergy 015 Unknown [facility] (20 sources) Iodine; Translations: [iodine] Drug Allergy Unknown (qualifier value), Unknown [facility] (2 sources) Sulfonamides (Antibiotic); Translations: [sulfa drugs] Drug allergy Unknown (qualifier value) [facility] (11 sources) Sulfamethoxazole / Trimethoprim; Translations: [Bactrim] Drug Allergy Unknown, Rash cube19 Other (19 sources) Simvastatin Drug Allergy 024 Unknown, Unknown Reaction, [facility] (8 sources) Allergies Reconciled Propensity to adverse reactions Unknown cube19 Other (20 sources) Iodinated contrast media (substance) Drug allergy 011 Hives, Itching [facility] (17 sources) Substance with sulfonamide structure and antibacterial mechanism of action (substance) Drug allergy 024 Hives, Unknown cube19 Other (8 sources) Septra *ANTI-INFECTIVE AGENTS - MISC.* Propensity to adverse reactions Unknown cube19 Other (8 sources) Sulf-10 Drug allergy 014 Unknown cube19 Other (8 sources) patient allergy list reviewed by nurse or physicia Propensity to adverse reactions Comment:Done cube19 Other (2 sources) Contrast media Allergy to substance (finding) Rash [facility] 250 DO Work Phone: (13 sources) Sulfamethoxazole; Translations: [SULFAMETHOXAZOLE] Drug Allergy Hives [facility] (12 sources) Sulfonamides (Antibiotic); Translations: [Sulfa (Sulfonamide Antibiotics)] Allergy to substance Unknown Reaction, [facility] (12 sources) Trimethoprim; Translations: [trimethoprim] Drug Allergy Unknown Reaction, [facility] (14 sources) Iodinated Contrast Media; Translations: [IODINATED CONTRAST MEDIA] Allergy to substance Unknown Reaction, Rash, itching [facility] (1 source) Iodine Drug Allergy [facility] (1 source) Simvastatin Drug Allergy [facility] Medications Current Medications Medication Drug [...] 1 tablet by mouth in the morning [id number] INC ORAL Take 1 tablet by mouth early in the morning.. 07/02/2024 Discontinued (Med List Cleanup) take 1 tablet by gina th in the morning [id number] ORAL Take 1 table t by mouth [...] release tablet 5 mg polyethylene glycol 3350 26439 mg powder for oral solution (1 source) [...] Refills(s) 0 Start Date: 10/24/18 Status: Ordered Ozm-Evo-Opcj 333-133-5 MG TA BS (2 sources) Szb-Tqy-Lhbe 333 -133-5 MG TABS TAKE 1 TABLET [...] Coronary arteriosclerosis; Translations: [Atherosclerotic heart disease of [place] coronary artery without angina pectoris] Onset: 5 [...] sources) Long-term current use of anticoagulant; Translations: [group home (current) use of anticoagulants] Onset: 1 Episodic Other aftercare (2 sources) group home (current) use of anticoagulants; Translations: [Long-term (current) use of anticoagulants] Onset: 2 08-04-2024 Episodic Other aftercare (8 sources) Long-term current use of drug therapy; Translations: [Other senior care (current) drug therapy] Episodic Other aftercare (6 sources) Taking high risk medication; Translations: [Other terminal carman (current) drug therapy] Onset: 4 03-26-2024 Episodic Other aftercare (1 source) Anticoagulant effect; Translations: [terminal supervisor (current) use of anticoagulants] 08-04-2024 Episodic Other [...] 09-23-2013 Episodic Other aftercare (4 sources) Other senior care (current) drug therapy; Translations: [OTH BRAZER FURNACE CURRENT DRUG THERAPY] Onset: 01-26-2022 Episodic Other [...] Basophils (Bld) [#/Vol] Automated basophil count 0.0-0.2 [facility] Basophils/100 WBC Auto (Bld) Ordered By: Teo Johsnon on 05-02-2024 Basophils/100 WBC (Bld) Automated basophil % . [facility] Blood Urea Nitrogenon 2024 Urea nitrogen [Mass/Vol] 24 mg/dL Normal 7-25 [facility] Comment on above: Performed By: #### C REAT, LIPID, CBC, PP, LYTES, BUN #### [facility] [address] Carbon dioxide, total [Moles /volume] in Serum or PlasmaOrdered By: Teo Johnson on 05-02-2024 CO2 [Moles/Vol] Carbon dioxide, tota l [Moles/volume] in Serum or Plasma 21.0-31.0 [facility] Chloride [Moles/volume] in S shant or PlasmaOrdered By: Teo Johnson on 05-02-2024 Chloride [Moles/Vol] Chloride [Moles/vol ume] in Serum or Plasma 98-107 [facility] Cholesterol [Mass/volume] in Serum or PlasmaOrdered By: Teo Johnson on 05-02-2024 Cholesterol [Mass/Vol] Cholesterol [Mass/volume] in Serum or Plasma 140-200 [facility] Comment on above: Chol less than 200 m g/dl low riskChol 201-239 mg/dl borderline riskChol 240 mg/dl and greater high risk Cholesterol in HDL [Mass/vol ume] in Serum or PlasmaOrdered By: Teo Johnson on 05-02-2024 Cholesterol in HDL [Mass/Vol] Serum or plasma high density lipoprotein (HDL) cholesterol measurement 23-92 [facility] Comment on above: HDL CHOL ATP-III CLA SSIFICATION Cardiovascular RiskHDL > or equal to 60 mg/dL LOWHDL < 40 mg/dL HIGH Cholesterol in LDL Calc [Mas s/Vol]Ordered By: Teo Johnson on 05-02-2024 Cholesterol in LDL [Mass/Vol] Cholesterol in LDL [Mass/volume] in Serum or Plasma by calculation High 0-100 [facility] Comment on above: LDL ATP III CLASSIFI CATIONLDL less than 100 mg/dL OptimalLDL 100-129 mg/dL Near or above optimalLDL 130-159 mg/dL Borderline highLDL 160-189 mg/dL HighLDL greater than 189 mg/dL Very high Cholesterol in VLDL Calc [Ma ss/Vol]Ordered By: Teo Johnson on 05-02-2024 Cholesterol in VLDL [Mass/Vol] Cholesterol in VLDL [Mass/volume] in Serum or Plasma by calculation [facility] Coagulation Profileon 2024 aPTT Coag (Bld) [Time] 29.9 s Normal 25.1-36.5 [facility] Comment on above: Result Comment: A he matocrit value greater than 55% may lead to inaccurate results in coagulation testing. Patients having hematocrit values >55% require a special collection tube for coagulation studies. Please contact the laboratory at [phone] for redraw instructions. PERFORMED BY: [place] [address] PATHOLOGIST LABORER [employer]INE BONNIE QUINTANILLA M.D. Performed By: #### C BC, CRP, DDIMER, ESR #### [address] INR Coag (PPP) [Relative time] 1.1 {INR} Normal [facility] Comment on above: Result Comment: [...] #### C BC, CRP, DDIMER, ESR #### [place] [id number] [facility] PT Coag (PPP) [Time] 12.6 s Normal 9.0-12.9 [facility] Comment on above: Result Comment: A he matocrit value greater than 55% may lead to inaccurate results in coagulation testing. Patients having hematocrit values >55% require a special collection tube for coagulation studies. Please contact the laboratory at [phone] for redraw instructions. Performed By: #### C BC, CRP, DDIMER, ESR #### [address] Complete Blood Count Auto Di ffon 05-02-2024 Basophils (Bld) [#/Vol] 0.1 10*3/uL Normal 0.0-0.2 [facility] Comment on above: Result Comment: PERF ORMED BY: [place] [address] PATHOLOGIST LABORER [employer] BONNIE QUINTANILLA M.D. Performed By: #### C REAT, LIPID, CBC, PP, LYTES, BUN #### [address] Basophils/100 WBC (Bld) 1.3 % Normal . [facility] Comment on above: Performed By: #### C REAT, LIPID, CBC, PP, LYTES, BUN #### [address] Eosinophils (Bld) [#/Vol] 0.4 10*3/uL Normal 0.0-0.45 [facility] Comment on above: Performed By: #### C REAT, LIPID, CBC, PP, LYTES, BUN #### [address] Eosinophils/100 WBC (Bld) 7.9 % Normal . [facility] Comment on above: Performed By: #### C REAT, LIPID, CBC, PP, LYTES, BUN #### [address] Erythrocyte distribution width (RBC) [Ratio] 12.8 % Normal 12.0-14.8 [facility] Comment on above: Performed By: #### C REAT, LIPID, CBC, PP, LYTES, BUN #### [address] Hematocrit (Bld) [Volume fraction] 41.6 % Normal 38.8-50.0 [facility] Comment on above: Performed By: #### C REAT, LIPID, CBC, PP, LYTES, BUN #### [address] Hemoglobin (Bld) [Mass/Vol] 14.7 g/dL Normal 13.0-17.0 [facility] Comment on above: Performed By: #### C REAT, LIPID, CBC, PP, LYTES, BUN #### [address] Lymphocytes (Bld) [#/Vol] 1.7 10*3/uL Normal 1.00-4.8 [facility] Comment on above: Performed By: #### C REAT, LIPID, CBC, PP, LYTES, BUN #### [address] Lymphocytes/100 WBC (Bld) 32.7 % Normal . [facility] Comment on above: Performed By: #### C REAT, LIPID, CBC, PP, LYTES, BUN #### [address] MCH (RBC) [Entitic mass] 33.0 pg Normal 27.5-35.2 [facility] Comment on above: Performed By: #### C REAT, LIPID, CBC, PP, LYTES, BUN #### [address] MCV (RBC) [Entitic vol] 93.7 fL Normal 83.5-101 [facility] Comment on above: Performed By: #### C REAT, LIPID, CBC, PP, LYTES, BUN #### [address] Mean Corpuscular HGB Conc 35.3 g/dL Normal 32.5-35.6 [facility] Comment on above: Performed By: #### C REAT, LIPID, CBC, PP, LYTES, BUN #### [address] Monocytes (Bld) [#/Vol] 0.6 10*3/uL Normal 0.0-0.8 [facility] Comment on above: Performed By: #### C REAT, LIPID, CBC, PP, LYTES, BUN #### [address] Monocytes/100 WBC (Bld) 12.0 % Normal . [facility] Comment on above: Performed By: #### C REAT, LIPID, CBC, PP, LYTES, BUN #### [address] Neutrophils (Bld) [#/Vol] 2.4 10*3/uL Normal 1.8-7.7 [facility] Comment on above: Performed By: #### C REAT, LIPID, CBC, PP, LYTES, BUN #### [address] Neutrophils/100 WBC (Bld) 46.1 % Normal . [facility] Comment on above: Performed By: #### C REAT, LIPID, CBC, PP, LYTES, BUN #### [address] NRBC% 0.2 /100{WBC} Normal 0-0.5 [facility] Comment on above: Performed By: #### C REAT, LIPID, CBC, PP, LYTES, BUN #### [address] Platelet mean volume (Bld) [Entitic vol] 8.4 fL Normal 6.6-10.1 [facility] Comment on above: Performed By: #### C REAT, LIPID, CBC, PP, LYTES, BUN #### [place] [address] [place] Platelets (Bld) [#/Vol] 139 10*3/uL Low 150-450 [facility] Comment on above: Performed By: #### C REAT, LIPID, CBC, PP, LYTES, BUN #### [place] [address] [place] RBC (Bld) [#/Vol] 4.45 10*6/uL Normal 3.90-5.[address] [facility] Comment on above: Performed By: #### C REAT, LIPID, CBC, PP, LYTES, BUN #### [facility] [address] WBC (Bld) [#/Vol] 5.3 10*3/uL Normal 4.1-10.5 [facility] Comment on above: Performed By: #### C REAT, LIPID, CBC, PP, LYTES, BUN #### [address] Creatinineon 05-02-2024 Creatinine [Mass/Vol] 1.04 mg/dL Normal 0.70-1.30 [facility] Comment on above: Performed By: #### C BC, CRP, DDIMER, ESR #### [address] GFR/1.73 sq M.predicted MDRD (S/P/Bld) [Vol rate/Area] mL/min/{1.73_m2} Normal [facility] Comment on above: Performed By: #### C BC, CRP, DDIMER, ESR #### [address] Creatinine [Mass/volume] in Serum or PlasmaOrdered By: Teo Johnson on 05-02-2024 Creatinine [Mass/Vol] Creatinine [Mass/v olume] in Serum or Plasma 0.70-1.30 [facility] ECG 12 lead ECGon 05-02-2024 ECG 12 lead ECG [facility] [place] [address] Electrocardiograph Report Signed Patient: Yanelis Noriega MR#: [id number] : 1945 Acct:[id number] Age/Sex: 79 / M ADM Date: 05/02/24 Loc: Room: Type: [facility] Attending Dr: Teo Johnson MD Ordering Provider: Teo Johnson MD, [facility] Date of Service: 05/02/2409/19/1006 ECG/ECG [...] rhythm Normal ECG Confirmed by Brianna Martinez ([id number]) on 05/02/2024 9:12:37 PM Referred By: Electronically Signed By: Brianna Martinez Transcribed By: MUS Signed By Brianna Martinez MD 5 2 Normal [facility] Electrolyteson 05-02-2024 Anion gap [Moles/Vol] 6.0 mmol/L Normal 6.0-15.0 [facility] Comment on above: Performed By: #### C REAT, LIPID, CBC, PP, LYTES, BUN #### [address] Chloride [Moles/Vol] 106 mmol/L Normal 98-107 [facility] Comment on above: Performed By: #### C REAT, LIPID, CBC, PP, LYTES, BUN #### [address] CO2 [Moles/Vol] 29.5 mmol/L Normal 21.0-31.0 [facility] Comment on above: Performed By: #### C REAT, LIPID, CBC, PP, LYTES, BUN #### [address] Potassium [Moles/Vol] 4.5 mmol/L Normal 3.5-5.1 [facility] Comment on above: Performed By: #### C REAT, LIPID, CBC, PP, LYTES, BUN #### [address] Sodium [Moles/Vol] 137 mmol/L Normal 136-145 [facility] Comment on above: Performed By: #### C REAT, LIPID, CBC, PP, LYTES, BUN #### [address] [address] [facility] Eosinophils Auto (Bld) [#/Vo l]Ordered By: Teo Johnson on 05-02-2024 Eosinophils (Bld) [#/Vol] Automated eosinophil count 0.0-0.45 [facility] Eosinophils/100 WBC Auto (Bl d)Ordered By: Teo Johnson on 05-02-2024 Eosinophils/100 WBC (Bld) Automated eosinophil % . [facility] Erythrocyte distribution wid th Auto (RBC) [Ratio]Ordered By: Teo Johnson on 05-02-2024 Erythrocyte distribution width (RBC) [Ratio] Erythrocyte distribution width [Ratio] by Automated count 12.0-14.8 [facility] Hematocrit Auto (Bld) [Volum e fraction]Ordered By: Teo Johnson on 05-02-2024 Hematocrit (Bld) [Volume fraction] Hematocrit [Volume Fraction] of Blood by Automated count 38.8-50.0 [facility] Hemoglobin [Mass/volume] in BloodOrdered By: Teo Johnson on 05-02-2024 Hemoglobin (Bld) [Mass/Vol] Hemoglobin [Mass/volume] in Blood 13.0-17.0 [facility] INR in Platelet poor plasma by Coagulation assayOrdered By: Teo Johnson on 05-02-2024 INR Coag (PPP) [Relative time] INR in Platelet poor plasma by Coagulation assay [facility] Comment on above: INR Therapeutic Rang e [...] erythrocytes in Blood by Automated coun 4.1-10.5 [facility] Lipid Panelon 05-02-2024 Cholesterol [Mass/Vol] 190 mg/dL Normal 140-200 [facility] Comment on above: Result Comment: Chol less than 200 mg/dl low risk Chol 201-239 mg/dl borderline risk Chol 240 mg/dl and greater high risk Performed By: #### C BC, CRP, DDIMER, ESR #### [facility] [address] Cholesterol in HDL [Mass/Vol] 53 mg/dL Normal 23-92 [facility] Comment on above: Result Comment: HDL CHOL ATP-III CLASSIFICATION Cardiovascular Risk HDL > or equal to 60 mg/dL LOW HDL < 40 mg/dL HIGH Performed By: #### C BC, CRP, DDIMER, ESR #### [facility] [address] Cholesterol.total/Cho lesterol in HDL [Mass ratio] 3.6 {ratio} Normal <5.0 [facility] Comment on above: Result Comment: PERF ORMED BY: [place] [address] PATHOLOGIST LABORER [employer] BONNIE QUINTANILLA M.D. Performed By: #### C BC, CRP, DDIMER, ESR #### [facility] [address] LDL Cholesterol,Calculate d 111 mg/dL High 0-100 [facility] Comment on above: Result Comment: LDL ATP III CLASSIFICATION LDL less than 100 mg/dL Optimal LDL 100-129 mg/dL Near or above optimal LDL 130-159 mg/dL Borderline high LDL 160-189 mg/dL High LDL greater than 189 mg/dL Very high Performed By: #### C BC, CRP, DDIMER, ESR #### [facility] [address] Triglyceride w/Reflex 130 mg/dL Normal 0-149 [facility] Comment on above: Result Comment: TRIG ATP III CLASSIFICATION TRIG less than 150 mg/dL Normal TRIG 150-199 mg/dL Borderline high TRIG 200-500 mg/dL High TRIG greater than 500 mg/dL Very high Standard traceable to the Center for Disease Conrtrol and Prevention (CDC) test method. Performed By: #### C BC, CRP, DDIMER, ESR #### [facility] [address] VLDL CHOLESTEROL 26 mg/dL Normal [facility] Comment on above: Performed By: #### C BC, CRP, DDIMER, ESR #### [facility] [address] Lymphocytes Auto (Bld) [#/Vo l]Ordered By: Teo Johnson on 05-02-2024 Lymphocytes (Bld) [#/Vol] Lymphocytes [#/volume] in Blood by Automated count 1.00-4.8 [facility] Lymphocytes/100 WBC Auto (Bl d)Ordered By: Teo Johnson on 05-02-2024 Lymphocytes/100 WBC (Bld) Lymphocytes/100 leukocytes in Blood by Automated count . [facility] MCH Auto (RBC) [Entitic mass ]Ordered By: Teo Johnson on 05-02-2024 MCH (RBC) [Entitic mass] MCH [Entitic mass] by Automated count 27.5-35.2 [facility] MCHC Auto (RBC) [Mass/Vol]Or dered By: Teo Johnson on 05-02-2024 MCHC (RBC) [Mass/Vol] MCHC [Mass/volume] by Automated count 32.5-35.6 [facility] MCV Auto (RBC) [Entitic vol] Ordered By: Teo Johnson on 05-02-2024 MCV (RBC) [Entitic vol] MCV [Entitic volume] by Automated count 83.5-101 [facility] Monocytes Auto (Bld) [#/Vol] Ordered By: Teo Johnson on 05-02-2024 Monocytes (Bld) [#/Vol] Automated blood monocyte count 0.0-0.8 [facility] Monocytes/100 WBC Auto (Bld) Ordered By: Teo Johnson on 05-02-2024 Monocytes/100 WBC (Bld) Automated monocyte % . [facility] Neutrophils Auto (Bld) [#/Vo l]Ordered By: Teo Johnson on 05-02-2024 Neutrophils (Bld) [#/Vol] Neutrophils [#/volume] in Blood by Automated count 1.8-7.7 [facility] Neutrophils/100 WBC Auto (Bl d)Ordered By: Teo Johnson on 05-02-2024 Neutrophils/100 WBC (Bld) Automated neutrophil % . [facility] No Panel InformationOrdered By: Teo Johnson on 05-02-2024 Estimated GFR (CKD-EPI) > 60.0 mL/Min [facility] Creatinine Clearance (Chem N/A [facility] Nucleated erythrocytes [Pres ence] in Blood by Automated countOrdered By: Teo Johnson on 05-02-2024 Nucleated RBC Auto Ql (Bld) Nucleated erythrocytes [Presence] in Blood by Automated count 0-0.5 [facility] Platelet mean volume Auto (B ld) [Entitic vol]Ordered By: Teo Johnson on 05-02-2024 Platelet mean volume (Bld) [Entitic vol] Platelet mean volume [Entitic volume] in Blood by Automated count 6.6-10.1 [facility] Platelets Auto (Bld) [#/Vol] Ordered By: Teo Johnson on 05-02-2024 Platelets (Bld) [#/Vol] Platelets [#/volume] in Blood by Automated count Low 150-450 [facility] Potassium [Moles/volume] in Serum or PlasmaOrdered By: Teo Johnson on 05-02-2024 Potassium [Moles/Vol] Potassium [Moles/v olume] in Serum or Plasma 3.5-5.1 [facility] Prothrombin time (PT)Ordered By: Teo Johnson on 05-02-2024 PT Coag (PPP) [Time] Prothrombin time (PT) 9.0- 12.9 [facility] Comment on above: A hematocrit value g reater than 55% may lead to inaccurate results in coagulation testing. Patients having hematocrit values >55% require a special collection tube for coagulation studies. Please contact the laboratory at [phone] for redraw instructions. RBC Auto (Bld) [#/Vol]Ordere d By: Teo Johnson on 05-02-2024 RBC (Bld) [#/Vol] Erythrocytes [#/volu me] in Blood by Automated count 3.90-5.60 [facility] Serum or plasma anion gap de terminationOrdered By: Teo Johnson on 05-02-2024 Anion gap [Moles/Vol] Serum or plasma an ion gap determination 6.0-15.0 [facility] Serum or plasma total choles terol/high density lipoprotein (HDL) cholesterol mass ratOrdered By: Teo Johnson on 05-02-2024 Cholesterol.total/Cho lesterol in HDL [Mass ratio] Serum or plasma total cholesterol/high density lipoprotein (HDL) cholesterol mass rat <5.0 [facility] Sodium [Moles/volume] in Ser um or PlasmaOrdered By: Teo Johnson on 05-02-2024 Sodium [Moles/Vol] Sodium [Moles/volume ] in Serum or Plasma 136-145 [facility] Triglyceride [Mass/volume] i n Serum or PlasmaOrdered By: Teo Johnson on 05-02-2024 Triglyceride [Mass/Vol] Triglyceride [Mass/volume] in Serum or Plasma 0-149 [facility] Comment on above: TRIG ATP III CLASSIF ICATIONTRIG less than 150 mg/dL NormalTRIG 150-199 mg/dL Borderline highTRIG 200-500 mg/dL High TRIG greater than 500 mg/dL Very highStandard traceable to the Center for Disease Conrtrol and Prevention (CDC) test method. Urea nitrogen [Mass/volume] in Serum or PlasmaOrdered By: Teo Johnson 05-02-2024 Urea nitrogen [Mass/Vol] Urea nitrogen [Mass/volume] in Serum or Plasma 7-25 [facility] WBC Auto (Bld) [#/Vol]Ordere d By: Teo Johnson on 05-02-2024 WBC (Bld) [#/Vol] Leukocytes [#/volume ] in Blood by Automated count 4.1-10.5 [facility] aPTT in Platelet poor plasma by Coagulation assayOrdered By: Teo Johnson 05-02-2024 aPTT Coag (PPP) [Time] Activated partial thromboplastin time (aPTT) in platelet poor plasma by coagulation a 25.1-36.5 [facility] Comment on above: A hematocrit value g reater than 55% may lead to inaccurate results in coagulation testing. Patients having hematocrit values >55% require a special collection tube for coagulation studies. Please contact the laboratory at [phone] CARDIAC SCORING WO [...] PM -------- ORIGINAL REPORT -------- Dictation workstation: [id number] Interpreted By: Cipriano Gutierrez, STUDY: CT CARDIAC SCORING WO IV CONTRAST; 04/29/2024 7:31 pm INDICATION: Signs/Symptoms:dyspnea. COMPARISON: None. ACCESSION NUMBER(S): [id number] ORDERING CLINICIAN: TEO JOHNSON TECHNIQUE: Using prospective [...] al. JACC 2015 (http://dx.doi.org/10.1016 /j.j acc.2015.08.035) Reading Workcell Operator: Dr. Cipriano Gutierrez, Date: 04/29/2024 8:19 pm Signed by: Cipriano Gutierrez 04/29/2024 8:20 PM Dictation workstation: [id number] [facility] CT for calcium scoring WO co ntrast [...] PM -------- ORIGINAL REPORT -------- Dictation workstation: [id number] [facility] Work Phone: 1. Coronary artery c alcium [...] al. JACC 2014 (http://dx.doi.org/10.1016 /j.j acc.2015.08.035) Reading Workcell Operator: Dr. Cipriano Gutierrez, Date: 04/29/2024 8:19 pm Signed by: Cipriano Gutierrez 04/29/2024 8:20 PM Dictation workstation: [id number] [facility] Interpreted By: Cipriano Landrum, STUDY: CT CARDIAC SCORING WO IV CONTRAST; 04/29/2024 7:31 pm INDICATION: Signs/Symptoms:dyspnea. COMPARISON: None. ACCESSION NUMBER(S): [id number] ORDERING CLINICIAN: TEO JOHNSON TECHNIQUE: Using prospective [...] artery are normal in size. [facility] Cipri[facility] Gutierrez D O / Radha Dior MD - 04/29/2024 Interpreted By: Cipriano Gutierrez, STUDY: CT CARDIAC SCORING WO IV CONTRAST; 04/29/2024 7:31 pm INDICATION: Signs/Symptoms:dyspnea. COMPARISON: None. ACCESSION NUMBER(S): [id number] ORDERING CLINICIAN: TEO JOHNSON TECHNIQUE: Using prospective [...] Calcification can be calcuate using link below https://www.omnroe-nhlbi.org /MESACHDRisk/MesaRiskScore /RiskScore.aspx [place]. JACC 2015 (http://dx.doi.org/10.1016 /j.j acc.2015.08.035) Reading Workcell Operator: Dr. Cipriano Gutierrez, Date: 04/29/2024 8:19 pm Signed by: Cipriano Gutierrez 04/29/2024 8:20 PM Dictation workstation: [id number] [facility] Work Phone: Radiology Study observation (narrative) [facility] Work Phone: CT for calcium scoring WO co ntrast and CTA W contrast IV Heart and coronary arteriesOrdered By: Radha Dior on 04-29-2024 [facility] Work Phone: STRESS TEST ONLYon 5 STRESS TEST ONLY [address], [address] [place] [address] Exercise Stress Test Patient Name: YANELIS NORIEGA Ordering Provider: Jessa JOHNSON Study Date: 04/08/2024 Reading Physician: Jessa Johnson MD, [facility] MRN/PID: [id number] Supervising Physician: Jessa Johnson MD, [facility] Fellow: Date of /Age: 11 1945 Fellow: years Gender: M Nurse: Sveta Trinh RN Admission Status: Enterprise Data Architect: NA Height: 170.18 cm Technologist: Weight: 82.10 kg Additional Staff: BSA: 1.94 m2 BMI: 28.35 kg/m2 Patient Location: Study Type: STRESS TEST ONLY Diagnosis/ICD: Shortness of breath-R06.02 Indication: Dyspnea CPT Codes: Stress Test Interpretation-66232; Stress Test Supervision-[id number] Falls Risk: Low: Patient has low risk [...] 5 minutes and 41 seconds on a Armnado protocol and achieving a maximal heart rate [...] age. 2. Adequate level of stress achieved. [id number] Teo Johnson MD, FACC Electronically signed on 04/09/2024 at 7:50:39 AM Final [facility] Basophils Auto (Bld) [#/Vol] on 02-09-2024 Basophils (Bld) [#/Vol] Automated basophil count 0.0-0.1 [facility] Basophils/100 WBC Auto (Bld) on 02-09-2024 Basophils/100 WBC (Bld) Automated basophil % 0.2-2.0 [facility] Cholesterol in LDL Calc [Mas s/Vol]on 02-09-2024 Cholesterol in LDL [Mass/Vol] Cholesterol in LDL [Mass/volume] in Serum or Plasma by calculation [facility] Comment on above: <100 mg/dl [id number] 0-129 mg/dl NEAR OR ABOVE [id number] mg/dl BORDERLINE [id number] mg/dl HIGH>190 mg/dl VERY HIGH Cholesterol in VLDL Calc [Ma ss/Vol]on 02-09-2024 Cholesterol in VLDL [Mass/Vol] Cholesterol in VLDL [Mass/volume] in Serum or Plasma by calculation [facility] Eosinophils/100 WBC Auto (Bl d)on 02-09-2024 Eosinophils/100 WBC (Bld) Automated eosinophil % High 0.9-7.0 [facility] Erythrocyte distribution wid th Auto (RBC) [Ratio]on 02-09-2024 Erythrocyte distribution width (RBC) [Ratio] Erythrocyte distribution width [Ratio] by Automated count 11.0-15.0 [facility] Estimated glomerular filtrat ion rate (GFR) non- Americanon 02-09-2024 GFR/1.73 sq M.predicted among non-blacks MDRD (S/P/Bld) [Vol rate/Area] Estimated glomerular filtration rate (GFR) non- >=60 mL/min/1.7 3m 2 [facility] Globulin Calc (S) [Mass/Vol] on 02-09-2024 Globulin (S) [Mass/Vol] Serum globulin measurement by calculation (mass/volume) [facility] Hematocrit Auto (Bld) [Volum e fraction]on 02-09-2024 Hematocrit (Bld) [Volume fraction] Hematocrit [Volume Fraction] of Blood by Automated count 42.0-54.0 [facility] Hemoglobin [Mass/volume] in Bloodon 02-09-2024 Hemoglobin (Bld) [Mass/Vol] Hemoglobin [Mass/volume] in Blood 14.0-18.0 [facility] Laboratory - Chemistry and C hemistry - challengeon 02-09-2024 Albumin [Mass/Vol] 3.7 g/dL 3.4-5.0 [facility] ALP [Catalytic activity/Vol] 65 U/L 46-116 [facility] ALT [Catalytic activity/Vol] 20 U/L 16-63 [facility] AST [Catalytic activity/Vol] 17 U/L 15-37 [facility] Bilirubin [Mass/Vol] 1.0 mg/dL 0.2-1.0 [facility] Calcium [Mass/Vol] 9.0 mg/dL 8.5-10.1 [facility] Chloride [Moles/Vol] 107 mmol/L 98-107 [facility] Cholesterol [Mass/Vol] 212 mg/dL High <=200 [facility] Cholesterol in HDL [Mass/Vol] 59 mg/dL 40-60 [facility] Comment on above: > or =60 mg/dl - LOW CARDIOVASCULAR RISK<40 mg/dl - HIGH CARDIOVASCULAR RISK CO2 [Moles/Vol] 30.0 mmol/L 21.0-32.0 [facility] Creatinine [Mass/Vol] 1.04 mg/dL 0.70-1.30 [facility] GFR/1.73 sq M.predicted MDRD (S/P/Bld) [Vol rate/Area] mL/min/{1.73_m2} >=60 mL/min/1.7 3m 2 [facility] Glucose [Mass/Vol] 112 mg/dL High 74-106 [facility] Potassium [Moles/Vol] 5.1 mmol/L 3.5-5.1 [facility] Protein [Mass/Vol] 6.8 g/dL 6.4-8.2 [facility] Sodium [Moles/Vol] 144 mmol/L 136-145 [facility] Triglyceride [Mass/Vol] 136 mg/dL <=150 [facility] Urea nitrogen [Mass/Vol] 21.0 mg/dL High 7.0-18.0 [facility] Urea nitrogen/Creatinine [Mass ratio] 20.2 mg/mg [facility] Laboratory - Hematology and Cell countson 02-09-2024 Immature granulocytes/100 WBC (Bld) 0.2 % 0.0-0.5 [facility] Leukocytes [#/volume] correc jodee for nucleated erythrocytes in Blood by Automated counon 02-09-2024 WBC corrected for nucl RBC Auto (Bld) [#/Vol] Leukocytes [#/volume] corrected for nucleated erythrocytes in Blood by Automated coun 4.0-11.0 [facility] Lymphocytes Auto (Bld) [#/Vo l]on 02-09-2024 Lymphocytes (Bld) [#/Vol] Lymphocytes [#/volume] in Blood by Automated count 1.2-3.8 [facility] Lymphocytes/100 WBC Auto (Bl d)on 02-09-2024 Lymphocytes/100 WBC (Bld) Lymphocytes/100 leukocytes in Blood by Automated count 20.5-60.0 [facility] MCH Auto (RBC) [Entitic mass ]on 02-09-2024 MCH (RBC) [Entitic mass] MCH [Entitic mass] by Automated count 25.9-34.0 [facility] MCHC Auto (RBC) [Mass/Vol]on 02-09-2024 MCHC (RBC) [Mass/Vol] MCHC [Mass/volume] by Automated count 29.9-35.2 [facility] MCV Auto (RBC) [Entitic vol] on 02-09-2024 MCV (RBC) [Entitic vol] MCV [Entitic volume] by Automated count High 80.0-94.0 [facility] Monocytes Auto (Bld) [#/Vol] on 02-09-2024 Monocytes (Bld) [#/Vol] Automated blood monocyte count 0.3-0.8 [facility] Monocytes/100 WBC Auto (Bld) on 02-09-2024 Monocytes/100 WBC (Bld) Automated monocyte % 1.7-12.0 [facility] Neutrophils Auto (Bld) [#/Vo l]on 02-09-2024 Neutrophils (Bld) [#/Vol] Neutrophils [#/volume] in Blood by Automated count 1.4-6.5 [facility] Neutrophils/100 WBC Auto (Bl d)on 02-09-2024 Neutrophils/100 WBC (Bld) Automated neutrophil % Low 43.0-75.0 [facility] No Panel Informationon 02-08 Eosinophils # (Auto) 0.6 10 3/uL 0.0-0.7 [facility] Immature Granulocyte # (Auto) 0.01 10 3/uL 0.00-0.03 [facility] Prostate Specific Antigen Screen 0.75 ng/mL <=4.00 [facility] Platelet mean volume Auto (B ld) [Entitic vol]on 02-09-2024 Platelet mean volume (Bld) [Entitic vol] Platelet mean volume [Entitic volume] in Blood by Automated count 9.5-13.5 [facility] Platelets Auto (Bld) [#/Vol] on 02-09-2024 Platelets (Bld) [#/Vol] Platelets [#/volume] in Blood by Automated count Low 150-450 [facility] RBC Auto (Bld) [#/Vol]on RBC (Bld) [#/Vol] Erythrocytes [#/volu me] in Blood by Automated count Low 4.70-6.10 [facility] Serum or plasma albumin/glob ulin mass ratioon 02-09-2024 Albumin/Globulin [Mass ratio] Serum or plasma albumin/globulin mass ratio [facility] Serum or plasma anion gap de terminationon 02-09-2024 Anion gap [Moles/Vol] Serum or plasma an ion gap determination [facility] Serum or plasma total choles terol/high density lipoprotein (HDL) cholesterol mass shaista 02-09-2024 Cholesterol.total/Cho lesterol in HDL [Mass ratio] Serum or plasma total cholesterol/high density lipoprotein (HDL) cholesterol mass rat [facility] Comment on above: 3.3 - 4.4 LOW RISK4. 4 - 7.1 AVERAGE RISK7.1 - 11.0 MODERATE RISK>11.0 HIGH RISK Automated basophil %Ordered By: Yogesh Jacob on 09-12-2023 Basophils/100 WBC (Bld) 0.8 % Normal . [facility] Comment on above: Performed By: #### C BC, CRP, DDIMER, ESR #### [address] Automated basophil countOrde red By: Yogesh Jacob on 09-12-2023 Basophils (Bld) [#/Vol] 0.0 10*3/uL Normal 0.0-0.2 [facility] Comment on above: Performed By: #### C BC, CRP, DDIMER, ESR #### [address] Automated blood monocyte cou ntOrdered By: Yogesh Jacob on 09-12-2023 Monocytes (Bld) [#/Vol] 0.7 10*3/uL Normal 0.0-0.8 [facility] Comment on above: Performed By: #### C BC, CRP, DDIMER, ESR #### [address] Automated eosinophil %Ordere d By: Yogesh Jacob on 09-12-2023 Eosinophils/100 WBC (Bld) 5.8 % Normal . [facility] Comment on above: Performed By: #### C BC, CRP, DDIMER, ESR #### [address] Automated eosinophil countOr dered By: Yogesh Jacob on 09-12-2023 Eosinophils (Bld) [#/Vol] 0.3 10*3/uL Normal 0.0-0.45 [facility] Comment on above: Performed By: #### C BC, CRP, DDIMER, ESR #### [address] Automated monocyte %Ordered By: Yogesh Jacob on 09-12-2023 Monocytes/100 WBC (Bld) 12.2 % Normal . [facility] Comment on above: Performed By: #### C BC, CRP, DDIMER, ESR #### [address] Automated neutrophil %Ordere d By: Yogesh Jacob on 09-12-2023 Neutrophils/100 WBC (Bld) 49.4 % Normal . [facility] Comment on above: Performed By: #### C BC, CRP, DDIMER, ESR #### [address] C reactive protein [Mass/vol ume] in Serum or PlasmaOrdered By: Yogesh Jacob on 09-12-2023 CRP [Mass/Vol] < 0.5 mg/dL 0.0-0.5 [facility] C-Reactive Proteinon 024 CRP [Mass/Vol] mg/L Normal 0.0-0.5 [facility] Comment on above: Result Comment: PERF ORMED BY: [place] [address] PATHOLOGIST LABORER SYRUP MACHINE DOLORES RICHARDS M.D. Performed By: #### C BC, CRP, DDIMER, ESR #### [address] Complete Blood Count Auto Di ffon 09-12-2023 Mean Corpuscular HGB Conc 35.1 g/dL Normal 32.5-35.6 [facility] Comment on above: Performed By: #### C BC, CRP, DDIMER, ESR #### [address] NRBC% 0.1 /100{WBC} Normal 0-0.5 [facility] Comment on above: Performed By: #### C BC, CRP, DDIMER, ESR #### [place] [id number] [facility] D-Dimer High Sensitivityon 0 09-12-2023 D-Dimer High Sensitivity 233 ng/mL Normal 0-243 [facility] Comment on above: Result Comment: [...] coagulation studies. Please contact the laboratory at [phone] for redraw instructions. PERFORMED BY: [place] [address] PATHOLOGIST LABORER SYRUP MACHINE DOLORES RICHARDS M.D. Performed By: #### C BC, CRP, DDIMER, ESR #### [address] Erythrocyte Sedimentation Ra enriqueta 09-12-2023 ESR (Bld) [Velocity] 10 mm/h Normal 0-19 [facility] Comment on above: Result Comment: PERF ORMED BY: [place] [address] PATHOLOGIST LABORER SYRUP MACHINE DOLORES RICHARDS M.D. Performed By: #### C BC, CRP, DDIMER, ESR #### [address] Erythrocyte distribution wid th [Ratio] by Automated countOrdered By: Yogesh Jacob on 09-12-2023 Erythrocyte distribution width (RBC) [Ratio] 12.8 % Normal 12.0-14.8 [facility] Comment on above: Performed By: #### C BC, CRP, DDIMER, ESR #### [address] [place] [address] [facility] Erythrocyte sedimentation ra te by Photometric methodOrdered By: Yogesh Jacob on 09-12-2023 ESR Photometric method (Bld) [Velocity] 10 mm/hr 0-19 [facility] Erythrocytes [#/volume] in B lood by Automated countOrdered By: Yogesh Jacob on 09-12-2023 RBC (Bld) [#/Vol] 4.35 10*6/uL Normal 3.90-5.60 [facility] Comment on above: Performed By: #### C BC, CRP, DDIMER, ESR #### [facility] [address] [place] [id number] [facility] Fibrin D-dimer [Presence] in Platelet poor plasma by Latex agglutinationOrdered By: Yogesh Jacob on 09-12-2023 Fibrin D-dimer LA Ql (PPP) 233 ng/mL 0-243 [facility] Comment on above: The reference range [...] coagulation studies. Please contact the laboratory at [phone] for redraw instructions. Hematocrit [Volume Fraction] of Blood by Automated countOrdered By: Yogesh Jacob on 09-12-2023 Hematocrit (Bld) [Volume fraction] 40.7 % Normal 38.8-50.0 [facility] Comment on above: Performed By: #### C BC, CRP, DDIMER, ESR #### [facility] [address] [place] [id number] [place] Hemoglobin [Mass/volume] in BloodOrdered By: Yogesh Jacob on 09-12-2023 Hemoglobin (Bld) [Mass/Vol] 14.3 g/dL Normal 13.0-17.0 [facility] Comment on above: Performed By: #### C BC, CRP, DDIMER, ESR #### [address] Leukocytes [#/volume] correc jodee for nucleated erythrocytes in Blood by Automated counOrdered By: Yogesh Jacob on 09-12-2023 WBC corrected for nucl RBC Auto (Bld) [#/Vol] 5.3 10*3/uL 4.1-10.5 [facility] Leukocytes [#/volume] in Blo od by Automated countOrdered By: Yogesh Jacob on 09-12-2023 WBC (Bld) [#/Vol] 5.3 10*3/uL Normal 4.1-10.5 [facility] Comment on above: Performed By: #### C BC, CRP, DDIMER, ESR #### [address] Lymphocytes [#/volume] in Bl ood by Automated countOrdered By: Yogesh Jacob on 09-12-2023 Lymphocytes (Bld) [#/Vol] 1.7 10*3/uL Normal 1.00-4.8 [facility] Comment on above: Performed By: #### C BC, CRP, DDIMER, ESR #### [address] Lymphocytes/100 leukocytes i n Blood by Automated countOrdered By: Yogesh Jacob on 09-12-2023 Lymphocytes/100 WBC (Bld) 31.8 % Normal . [facility] Comment on above: Performed By: #### C BC, CRP, DDIMER, ESR #### [place] [address] [place] MCH [Entitic mass] by Automa jodee countOrdered By: Yogesh Jacob on 09-12-2023 MCH (RBC) [Entitic mass] 32.9 pg Normal 27.5-35.2 [facility] Comment on above: Performed By: #### C BC, CRP, DDIMER, ESR #### [facility] [address] MCHC Auto (RBC) [Mass/Vol]Or dered By: Yogesh Jacob on 09-12-2023 MCHC (RBC) [Mass/Vol] 35.1 g/dL 32.5-35.6 [facility] MCV [Entitic volume] by Auto mated countOrdered By: Yogesh Jacob on 09-12-2023 MCV (RBC) [Entitic vol] 93.7 fL Normal 83.5-101 [facility] Comment on above: Performed By: #### C BC, CRP, DDIMER, ESR #### [facility] [address] Neutrophils [#/volume] in Bl ood by Automated countOrdered By: Yogesh Jacob on 09-12-2023 Neutrophils (Bld) [#/Vol] 2.6 10*3/uL Normal 1.8-7.7 [facility] Comment on above: Performed By: #### C BC, CRP, DDIMER, ESR #### [facility] [address] Nucleated erythrocytes [Pres ence] in Blood by Automated countOrdered By: Yogesh Jacob on 09-12-2023 Nucleated RBC Auto Ql (Bld) 0.1 /100{WBC} 0-0.5 [facility] Platelet mean volume [Entiti c volume] in Blood by Automated countOrdered By: Yogesh Jacob on 09-12-2023 Platelet mean volume (Bld) [Entitic vol] 9.0 fL Normal 6.6-10.1 [facility] Comment on above: Performed By: #### C BC, CRP, DDIMER, ESR #### [facility] [address] [place] [address] [place] Platelets [#/volume] in Bloo d by Automated countOrdered By: Yogesh Jacob on 09-12-2023 Platelets (Bld) [#/Vol] 127 10*3/uL Low 150-450 [facility] Comment on above: Performed By: #### C BC, CRP, DDIMER, ESR #### [facility] [address] [place] [id number] [facility] XR knee LT 3V - NOT FOR ER U Jake 09-12-2023 XR knee LT 3V - NOT FOR ER USE [facility] [address] [place] [address] XRay Report Signed Patient: Yanelis Noriega MR#: [id number] : 1945 Acct:[id number] Age/Sex: 78 / M ADM Date: 09/12/23 [...] Reji Alvarado M.D.09/12/2023 3:39 PM Dictation Location: [place] [address] Transcribed By: [facility] 09/12/23 1539 Dictated By: Reji Alvarado DO 09/12/23 1538 Signed By: 09/12/23 1539 Normal [facility] XR pelvis 1-2Von 09-12-2023 XR pelvis 1-2V [facility] [address] [place] [address] XRay Report Signed Patient: Yanelis Noriega MR#: [id number] : 1945 Acct:[id number] Age/Sex: 78 / M ADM Date: 09/12/23 [...] Reji Alvarado M.D.09/12/2023 3:38 PM Dictation Location: [facility] Transcribed By: [facility] 09/12/23 153 Dictated By: Reji Alvarado DO 09/12/231536 Signed By: 09/12/231537 Normal [facility] Alanine Aminotransferaseon 1 04-02-2022 ALT [Catalytic activity/Vol] 18 U/L Normal 16-63 U/L cube19 Other Basic Metabolic Panelon 12-0 Anion gap [Moles/Vol] 10.8 mmol/L No rt [employer] Other Calcium [Mass/Vol] 8.6578715 mg/dL Normal 8.5-10 .1 mg/dL cube19 Other Chloride [Moles/Vol] 105 mmol/L Normal 98-107 mmol/L cube19 Other CO2 [Moles/Vol] 30.52029617 mmol/L Normal 21.0-3 2.0 mmol/L cube19 Other Creatinine [Mass/Vol] 1.06562073 mg/dL Normal 0. 70-1.30 mg/dL cube19 Other Glucose [Mass/Vol] 151 mg/dL High 74-106 mg/dL cube19 Other Potassium [Moles/Vol] 4.57766560 mmol/L Normal 3 .5-5.1 mmol/L cube19 Other Sodium [Moles/Vol] 142 mmol/L Normal 136-145 mmol/L cube19 Other Urea nitrogen [Mass/Vol] 18.3861297 mg/dL Normal 7.0-18.0 mg/dL cube19 Other Urea nitrogen/Creatinine [Mass ratio] 17.0 mg/mg [place] [employer] Other Basic Metabolic Panel see note [facility] [employer] Other Basic Metabolic Panel >60 >=60 [facility] [employer] Other Lipid Panelon 01-30-2023 Cholesterol [Mass/Vol] 178 mg/dL <=200 mg/dL cube19 Other Cholesterol in HDL [Mass/Vol] 53 mg/dL Normal 40-60 mg/dL cube19 Other Triglyceride [Mass/Vol] 174 mg/dL High <=150 mg/dL cube19 Other Lipid Panel 91.0 mg/dL cube19 Other Lipid Panel 34.8 mg/dL cube19 Other Lipid Panel 3.4 cube19 Other PSA SCREENINGon 01-30-2023 PSA SCREENING 0.74 ng/mL <=4.00 ng/mL [place] [employer] Other Heart TransthoracicOrdere d By: Teo Johnson on 12-25-2022 LV A4C EF 62.2 [facility] Work Phone: [facility] Work Phone: Heart Transthoracicon [address], [place] [address] TRANSTHORACIC ECHOCARDIOGRAM REPORT Patient Name: YANELIS NORIEGA [place]don Physician: [id number] Teo Johnson MD, [facility] Study Date: 12/21/2022 Ordering Provider: [id number] TEO JOHNSON MRN/PID: [id number] Fellow: Nurse: Sveta Trinh RN Date of /Age: 11 1945 / 77 years 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 Data Architect: Osiris Barba RDCS, RVT Gender: M Additional Staff: Height: 170.18 cm Admit Date: Weight: 82.56 kg Admission Status: BSA: 1.94 m2 Department Location: [facility] Blood Pressure: 154 /86 mmHg Study Type: TRANSTHORACIC ECHO (TTE) LIMITED Diagnosis/ICD: Abnormal findings on diagnostic imaging of heart and coronary circulation-R93.1; Cerebral Infarction, unspecified-I63.9 Indication: HTN, Hyperlipidemia, Former Smoker, History of CVA, History of DVT, Overweight, Lacunar Infarct, Daily ETOH CPT Codes: Echo Limited-71303 Study Detail: The following Echo studies were [...] and the bubble study demonstrated PFO with zxwqw-nv-xmii shunt. Right Ventricle: The right ventricle is [...] and the bubble study demonstrated PFO with vpqjk-af-yeac shunt. 3. Aortic valve appears abnormal. 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 Data Architect: Osiris Barba RDCS, RVT Gender: M Additional Staff: Height: 170.18 cm Admit Date: Weight: 82.56 kg Admission Status: BSA: 1.94 m2 Department Location: [facility] Blood Pressure: 154 /86 mmHg Study Type: TRANSTHORACIC ECHO (TTE) LIMITED Diagnosis/ICD: Abnormal findings on diagnostic imaging of heart and coronary circulation-R93.1; Cerebral Infarction, unspecified-I63.9 Indication: HTN, Hyperlipidemia, Former Smoker, History of CVA, History of DVT, Overweight, Lacunar Infarct, Daily ETOH CPT Codes: Echo Limited-46945 Study Detail: The following Echo studies were [...] and the bubble study demonstrated PFO with lphig-lz-vogy shunt. Right Ventricle: The right ventricle is [...] and the bubble study demonstrated PFO with ezqlf-mo-fogi shunt. 3. Aortic valve appears abnormal. QUANTITATIVE [...] Normal Ranges: LVOT Diameter: 2.40 cm (1.8-2.4cm) [id number] Teo Johnson MD, [facility] Electronically signed on 12/25/2022 at 10:42:09 AM Final [facility] Work Phone: Office Visit (Cardiology)on 11-09-2022 Follow-up [...] Bubble Study; Status:Hold For - Scheduling; Requested for:[id number]; Laterality : Bilateral History of stroke, Hyperlipidemia, Hypertension IO EKG Electrocardiogram- 12 Lead; Status:Complete; Done: [id number] Overweight with body mass index (BMI) of 28 to 28.9 in adult Healthy Weight Tips; Status:Complete; Done: [id number] Some eating tips that can help you lose weight.; Status:Complete; Done: [id number] SocHx: Former smoker Tobacco Use Screening; Status:Complete; Done: [id number] Patient Instructions Please bring all medicines, vitamins, [...] neurological symptoms. He had transthoracic echocardiogram in [place] [facility] which she read possible PFO. There [...] I did review the echo report from [facility] and the other imaging studies. Assessment/recommendations [...] 20 MG Oral TabletTAKE 1 TABLET DAILY. Piu-Rux-Mpap 333-133-5 MG TABSTAKE 1 TABLET DAILY. Eliquis [...] Gastrointestinal: no (more content not included)... Normal [employer] Tobacco Screening.on 023 Adult depression screening assessment No [facility] 250 DO Work Phone: Fall risk assessment a) No falls within the last year [facility] 250 DO Work Phone: Tobacco use status [facility]PHS b) No [facility] 250 DO Work Phone: [place] 08-31-2022 Screens [id number]:[address] [facility] Screens [id number]#[id number]:127 [facility] Ambulatory Visit Summaryon 0 08-30-2022 Ambulatory Visit Summary YANELIS NORIEGA :1945 Visit Date:08/30/2022 Ambulatory Visit Instructions Your Diagnosis BPH without urinary obstruction Anticoagulated Tests Performed Urnls Dip Stick Auto w/o Microscopy POC 40556 Your Care Team Attending Physician - Fred [...] Urnls Dip Stick Auto w/o Microscopy POC 84706 (08/30/2022) Bilirubin Urine Dipstick - Negative Blood Urine Dipstick - Negative Glucose Urine Dipstick - Negative Ketones Urine Dipstick - Negative Leukocytes Urine Dipstick - Negative Nitrite Urine Dipstick - Negative Protein Urine Dipstick - Negative Specific [place] Urine Dipstick - >=1.030 Urine Appearance Urine [...] to s (more content not included)... Normal [facility] Patient Educationon 08-31-19 Patient Education Urology [...] Follow these instructions at home: ? Take rirr-aox-jtjibwi and prescription medicines only as told by [...] the medicine (more content not included)... Normal [facility] Urology Office/Clinic Noteon 08-30-2022 Urology Office/Clinic [...] changes in urinary symptoms. 2. 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 Normal [facility] Comment on above: Result Comment: Elec tronically Signed By: Clarisa Ibarra MD\.br\Date and Time Signed: 08/30/22 10:47 EDT\.br\Electronically Co-Signed By: Jenny Britt\.br\Date and Time Co-Signed: 08/30/22 10:06 EDT [facility] 08-28-2022 Lab Reports [id number]#[id number]:[address] [facility] Covid-19 PCR (CVDTB)on 01-27 SARS-CoV-2 (COVID-19) RNA MEREDITH+probe Ql (Unsp spec) Not detected Normal NOT DETECTED [facility] Comment on above: Result Comment: This test is not yet approved or cleared by the [place] FDA. When there are no FDA-approved or cleared tests available, and other criteria are met, FDA can make tests available under an emergency access mechanism called an Emergency Use Authorization (EUA). The EUA for this test is supported by the [place] of Health and Human Service's (HHS's) declaration [...] SARS-CoV-2. Performed By: #### C VDTB #### [facility] [address] [place] [address] Dr. Tisha John CBC AUTO DIFFon 01-23-2022 BASO # 0.1 103/ul Normal 0.0-0.1 [facility] Comment on above: Performed By: #### C BC #### [facility] [address] [place] [address] Dr. Tisha John Basophils/100 WBC (Bld) 1.3 % Normal 0.2-2.0 [facility] Comment on above: Performed By: #### C BC #### [facility] [address] [place] [address] Dr. Tisha John EO # 0.5 103/ul Normal 0.0-0.7 [facility] Comment on above: Performed By: #### C BC #### [facility] [address] [place] [address] Dr. Tisha John Eosinophils/100 WBC (Bld) 8.8 % Critically high 0.9-7.0 [facility] Comment on above: Performed By: #### C BC #### [facility] [address] [place] [address] Dr. Tisha John Erythrocyte distribution width (RBC) [Ratio] 11.9 % Normal 11.0-15.0 [facility] Comment on above: Performed By: #### C BC #### [facility] [address] [place] [address] Dr. Tisha John Hematocrit (Bld) [Volume fraction] 40.5 % Critically low 42.0-54.0 [facility] Comment on above: Performed By: #### C BC #### [facility] [address] [place] [address] Dr. Tisha John Hemoglobin (Bld) [Mass/Vol] 14.5 g/dL Normal 14.0-18.0 [facility] Comment on above: Performed By: #### C BC #### [facility] [address] [place] [address] Dr. Tisha John IG # 0.02 10e3/ul Normal 0.00-0.03 [facility] Comment on above: Performed By: #### C BC #### [facility] [address] [place] [address] Dr. Tisha John IG % 0.4 % Normal 0.0-0.5 [facility] Comment on above: Performed By: #### C BC #### [facility] [address] [place] [address] Dr. Tisha John LYMPH # 1.8 103/ul Normal 1.2-3.8 [facility] Comment on above: Performed By: #### C BC #### [facility] [address] [place] [address] Dr. Tisha John Lymphocytes/100 WBC (Bld) 32.2 % Normal 20.5-60.0 [facility] Comment on above: Performed By: #### C BC #### [facility] [address] [place] [address] Dr. Tisha Jhon MANUAL DIFF REQ NO Normal [facility] Comment on above: Performed By: #### C BC #### [facility] [address] [place] [address] Dr. Tisha John MCH (RBC) [Entitic mass] 32.1 pg Normal 25.9-34.0 [facility] Comment on above: Performed By: #### C BC #### [facility] [address] [place] [address] Dr. Tisha John MCHC (RBC) [Mass/Vol] 35.8 g/dL Critically high 29.9-35.2 [facility] Comment on above: Performed By: #### C BC #### [facility] [address] [place] [address] Dr. Tisha John MCV (RBC) [Entitic vol] 89.6 fL Normal 80.0-94.0 [facility] Comment on above: Performed By: #### C BC #### [facility] [address] [address] [address] Tisha John MONO # 0.6 103/ul Normal 0.3-0.8 [facility] Comment on above: Performed By: #### C BC #### [facility] [address] [address] [address] Tisha John Monocytes/100 WBC (Bld) 11.3 % Normal 1.7-12.0 [facility] Comment on above: Performed By: #### C BC #### [facility] [address] [address] [address] Tisha John NEUT # 2.6 103/ul Normal 1.4-6.5 [facility] Comment on above: Performed By: #### C BC #### [facility] [address] [address] [address] Tisha John Neutrophils/100 WBC (Bld) 46.0 % Normal 43.0-75.0 [facility] Comment on above: Performed By: #### C BC #### [facility] [address] [address] [address] Tisha John Platelet mean volume (Bld) [Entitic vol] 10.5 fL Normal 9.5-13.5 [facility] Comment on above: Performed By: #### C BC #### [facility] [address] [address] [address] Tisha John PLT 134 103/ul Critically low 150-450 [facility] Comment on above: Performed By: #### C BC #### [facility] [address] [address] [address] Tisha John RBC 4.52 106/ul Critically low 4.70-6.10 [facility] Comment on above: Performed By: #### C BC #### [facility] [address] [address] [address] Tisha John WBC 5.6 103/ul Normal 4.0-11.0 [facility] Comment on above: Performed By: #### C BC #### [facility] [address] [address] [address] Tisha John LIPID PROFILEon 01-23-2022 CHOL-HDL RATIO NORM SEE BELOW Normal [facility] Comment on above: Result Comment: 3.3 - 4.4 LOW RISK 4.4 - 7.1 AVERAGE RISK 7.1 - 11.0 MODERATE RISK >11.0 HIGH RISK Performed By: #### A LT, BMP, LIPID #### [facility] [address] [address] [address] Tisha John Cholesterol [Mass/Vol] 187 mg/dL Normal <=200 [facility] Comment on above: Performed By: #### A LT, BMP, LIPID #### [facility] [address] [address] [address] Tisha John Cholesterol in HDL [Mass/Vol] 51 mg/dL Normal 40-60 [facility] Comment on above: Performed By: #### A LT BMP, LIPID #### [facility] [address] [address] [address] Tisha John Cholesterol in LDL [Mass/Vol] 104.8 mg/dL Normal [facility] Comment on above: Performed By: #### A LT BMP, LIPID #### [facility] [address] [address] [address] Tisha John Cholesterol.total/Cho lesterol in HDL [Mass ratio] 3.7 {ratio} Normal [facility] Comment on above: Performed By: #### A LT, BMP, LIPID #### [facility] [address] [address] [address] Tisha John HDL NORMAL > or = 60 mg/dl - LO W CARDIOVASCULAR RISK <40 mg/dl - HIGH CARDIOVASCULAR RISK Normal [facility] Comment on above: Performed By: #### A LT, BMP, LIPID #### [facility] [address] [address] [address] Tisha John LDL CALC NORMAL SEE BELOW Normal [facility] Comment on above: Result Comment: <100 mg/dl OPTIMAL 100 - 129 mg/dl NEAR OR ABOVE OPTIMAL 130 - 159 mg/dl BORDERLINE HIGH 160 - 189 mg/dl HIGH >190 mg/dl VERY HIGH Performed By: #### A LT, BMP, LIPID #### [facility] [address] [address] [address] Tisha John Triglyceride [Mass/Vol] 156 mg/dL Critically high <=150 [facility] Comment on above: Performed By: #### A LT, BMP, LIPID #### [facility] [address] [address] [address] Tisha John VLDL CALC 31.2 mg/dL Normal [facility] Comment on above: Performed By: #### A LT, BMP, LIPID #### [facility] [address] [place] [address] Dr. Tisha John PROF CHEM 8 (BAS METB)on Anion gap [Moles/Vol] 10.7 mmol/L Normal [facility] Comment on above: Performed By: #### A LT, BMP, LIPID #### [facility] [address] [place] [address] Dr. Tisha John Calcium [Mass/Vol] 8.7 mg/dL Normal 8.5-10.1 [facility] Comment on above: Performed By: #### A LT, BMP, LIPID #### [facility] [address] [place] [address] Dr. Tisha John Chloride [Moles/Vol] 102 mmol/L Normal 98-107 [facility] Comment on above: Performed By: #### A LT, BMP, LIPID #### [facility] [address] [place] [address] Dr. Tisha John CO2 [Moles/Vol] 30.7 mmol/L Normal 21.0-32.0 [facility] Comment on above: Performed By: #### A LT, BMP, LIPID #### [facility] [address] [place] [address] Dr. Tisha John Creatinine [Mass/Vol] 0.88 mg/dL Normal 0.70-1.30 [facility] Comment on above: Performed By: #### A LT, BMP, LIPID #### [facility] [address] [place] [address] Dr. Tisha John EGFR-AF ZAMBIAN >60 Normal >=60 [facility] Comment on above: Performed By: #### A LT, BMP, LIPID #### [facility] [address] [place] [address] Dr. Tisha John EGFR-NON AF ZAMBIAN >60 Normal >=60 [facility] Comment on above: Performed By: #### A LT, BMP, LIPID #### [facility] [address] [place] [address] Dr. Tisha John Glucose [Mass/Vol] 106 mg/dL Normal 74-106 [facility] Comment on above: Performed By: #### A LT, BMP, LIPID #### [facility] [address] [place] [address] Dr. Tisha John Potassium [Moles/Vol] 4.4 mmol/L Normal 3.5-5.1 [facility] Comment on above: Performed By: #### A LT, BMP, LIPID #### [facility] [address] [place] [address] Dr. Tisha John Sodium [Moles/Vol] 139 mmol/L Normal 136-145 [facility] Comment on above: Performed By: #### A LT, BMP, LIPID #### [facility] [address] [place] [address] Dr. Tisha John Urea nitrogen [Mass/Vol] 16.0 mg/dL Normal 7.0-18.0 [facility] Comment on above: Performed By: #### A LT, BMP, LIPID #### [facility] [address] [place] [address] Dr. Tisha John Urea nitrogen/Creatinine [Mass ratio] 18.2 mg/mg Normal [facility] Comment on above: Performed By: #### A LT, BMP, LIPID #### [facility] [address] [place] [address] Dr. Tisha John [facility] 01-23-2022 ALT [Catalytic activity/Vol] 23 U/L Normal 16-63 [facility] Comment on above: Performed By: #### A LT, BMP, LIPID #### [facility] [address] [address] [address] Tisha John Ambulatory Visit Summaryon 1 03-13-2021 Ambulatory Visit Summary YANELIS NORIEGA :1945 Visit Date:2022 Ambulatory Visit Instructions Your Diagnosis BPH without urinary obstruction Anticoagulated Tests Performed Urnls Dip Stick Auto w/o Microscopy POC 32726 Your Care Team Attending Physician - Clarisa [...] Clarisa Ibarra MD Where: [facility] Patient Educationon 01-12-20 22 Patient Education [...] Follow these instructions at home: ? Take kqzb-stj-bvzlioo and prescription medicines only as told by [...] You d (more content not included)... Normal [facility] Urology Office/Clinic Noteon 2022 Urology Office/Clinic [...] changes in urinary symptoms. 2. 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) Eliquis 2.5 mg BID Elevated risk of periop complications in the future Follow-up With When Contact Information Cl Alan MD, Juliana Pride, URO Within 6 months [facility] [address] [place] [address]- Additional Instructions: PSA Patient Education Benign Prostatic [...] Protein Urine Dipstick: Negative (01/11/22 11:11:00) Specific [place] Urine Dipstick: 1.025 (01/11/22 11:11:00) Urine Appearance Urine Dipstick: Clear (01/11/22 11:11:00) Urine Color Urine Dipstick: Yellow (01/11/22 11:11:00) Urobilinogen Urine Dipstick: Normal 0.2-1 EU/dl (01/11/22 11:11:00) pH Urine Dipstick: 5 (01/11/22 11:11:00) Diagnostic Results Tests Re (more content not included)... Normal [facility] Comment on above: Result Comment: Elec tronically Signed By: Clarisa Ibarra MD\.br\Date and Time Signed: 01/11/22 12:31 EST\.br\Electronically Co-Signed By: Petrona Perera\.br\Date and Time Co-Signed: 01/11/22 12:10 EST [facility] 11-23-2021 Lab Reports [id number]#[id number]:[address] [facility] Basic Metab w/rfx MGon 08-22 (cont.) Normal [facility] Comment on above: Result Comment: Aver age GFR for 70 or more years old: 75 mL/min/1.73sq m Chronic Kidney Disease: <60 mL/min/1.73sq m Kidney failure: <15 mL/min/1.73sq m eGFR calculated using average adult body mass. Additional eGFR calculator available at: http://www.City [employer]/multiple_crcl_2011.htm Performed By: #### C NIKOLAI, BMPX #### [facility] [address] [facility]. [place], [place] [id number] Accredited Pharmacy Technician: Preet Castillo MD Anion gap [Moles/Vol] 13 mmol/L Normal 9-17 [facility] Comment on above: Performed By: #### C NIKOLAI, BMPX #### [facility] [address] [facility]. [place], [place] [id number] Accredited Pharmacy Technician: Preet Castillo MD BUN/CRE Ratio 20 Normal 9-20 [facility] Comment on above: Performed By: #### C NIKOLAI, BMPX #### [facility] [address] [place] [place] [address] Accredited Pharmacy Technician: Preet Castillo MD Calcium [Mass/Vol] 8.5 mg/dL Low 8.6-10.4 [facility] Comment on above: Performed By: #### C BC, BMPX #### [facility] [address] [place] [address] Accredited Pharmacy Technician: Preet Castillo MD Chloride [Moles/Vol] 105 mmol/L Normal 98-107 [facility] Comment on above: Performed By: #### C BC, BMPX #### [facility] [address] [place] [address] Accredited Pharmacy Technician: Preet Castillo MD CO2 [Moles/Vol] 23 mmol/L Normal 20-31 [facility] Comment on above: Performed By: #### C BC, BMPX #### [facility] [address] [place] [address] Accredited Pharmacy Technician: Preet Castillo MD Creatinine [Mass/Vol] 0.64 mg/dL Low 0.70-1.20 [facility] Comment on above: Performed By: #### C BC, BMPX #### [facility] [address] [place] [address] Accredited Pharmacy Technician: Preet Castillo MD GFR, Amer >60 Normal >60 [facility] Comment on above: Performed By: #### C BC, BMPX #### [facility] [address] [place] [address] Accredited Pharmacy Technician: Preet Castillo MD GFR,non Amer >60 Normal >60 [facility] Comment on above: Performed By: #### C BC, BMPX #### [facility] [address] [place] [address] Accredited Pharmacy Technician: Preet Castillo MD Glucose [Mass/Vol] 108 mg/dL High 70-99 [facility] Comment on above: Performed By: #### C BC, BMPX #### [facility] [address] [place] [address] Accredited Pharmacy Technician: Preet Castillo MD Potassium [Moles/Vol] 4.0 mmol/L Normal 3.7-5.3 [facility] Comment on above: Performed By: #### C BC, BMPX #### [facility] [address] [facility] [place] [place] [address] Accredited Pharmacy Technician: Preet Castillo MD Sodium [Moles/Vol] 141 mmol/L Normal 135-144 [facility] Comment on above: Performed By: #### C NIKOLAI, BMPX #### [facility] [address] [facility] [place] [place] [address] Accredited Pharmacy Technician: Preet Castillo MD Urea nitrogen [Mass/Vol] 13 mg/dL Normal 8-23 [facility] Comment on above: Performed By: #### C NIKOLAI, BMPX #### [facility] [address] [facility] [place] [place] [address] Accredited Pharmacy Technician: Preet Castillo MD Staging: NOT REPORTED Normal [facility] Comment on above: Performed By: #### C NIKOLAI, BMPX #### [facility] [address] [facility] [place] [place] [address] Accredited Pharmacy Technician: Preet Castillo MD Basic Metabolic Panel w/ Ref tyrese to MGOrdered By: Rachel Mclean on 08-22-2020 Anion gap [Moles/Vol] 13 mmol/L 9 - 17 mmol/L [facility] Work Phone: Calcium [Mass/Vol] 8.5 mg/dL Low 8.6 - 10. 4 mg/dL [facility] Work Phone: Chloride [Moles/Vol] 105 mmol/L 98 - 10 7 mmol/L [employer] Phone: CO2 [Moles/Vol] 23 mmol/L 20 - 31 mmol/L [employer] Phone: Creatinine [Mass/Vol] 0.64 mg/dL Low 0.70 - 1.20 mg/dL [employer] Phone: GFR >60 >60 mL/min [employer] Private Phone: GFR Non- >60 >60 mL/min [employer] Phone: GFR/1.73 sq M.predicted MDRD (S/P/Bld) [Vol rate/Area] [employer] Phone: Comment on above: Average GFR for 70 o r more years old: 75 mL/min/1.73sq m Chronic Kidney Disease: <60 mL/min/1.73sq m Kidney failure: <15 mL/min/1.73sq m eGFR calculated using average adult body mass. Additional eGFR calculator available at: http://www.[employer]/multiple_crcl_2012.htm GFR/1.73 sq M.predicted MDRD (S/P/Bld) [Vol rate/Area] NOT REPORTED [employer] Phone: Glucose [Mass/Vol] 108 mg/dL High 70 - 99 mg/dL [employer] Phone: Interpretation and review of laboratory results Abnormal [employer] Phone: Potassium [Moles/Vol] 4.0 mmol/L 3.7 - 5.3 mmol/L [employer] Phone: Sodium [Moles/Vol] 141 mmol/L 135 - 144 mmol/L [employer] Phone: Urea nitrogen (BldV) [Mass/Vol] 13 mg/dL 8 - 23 mg/dL [employer] Phone: Urea nitrogen/Creatinine (Bld) [Mass ratio] 20 [facility] Work Phone: [facility] Work Phone: CBCon 08-22-2020 Erythrocyte distribution width (RBC) [Ratio] 12.9 % Normal 11.8-14.4 [facility] Comment on above: Performed By: #### C BC, BMPX #### [facility] [address] [facility] [place] [place] [address] Accredited Pharmacy Technician: Preet Castillo MD Hematocrit (Bld) [Volume fraction] 31.3 % Low 40.7-50.3 [facility] Comment on above: Performed By: #### C BC, BMPX #### [facility] [address] [place] [address]. [place] [address] Accredited Pharmacy Technician: Preet Castillo MD Hemoglobin (Bld) [Mass/Vol] 10.1 g/dL Low 13.0-17.0 [facility] Comment on above: Performed By: #### C NIKOLAI, BMPX #### [facility] [address] [place] [address]. [place] [address] Accredited Pharmacy Technician: Preet Castillo MD MCH (RBC) [Entitic mass] 31.0 pg Normal 25.2-33.5 [facility] Comment on above: Performed By: #### C BC, BMPX #### [facility] [facility] [place] [address] Accredited Pharmacy Technician: Preet Castillo MD MCHC (RBC) [Mass/Vol] 32.3 g/dL Normal 28.4-34.8 [facility] Comment on above: Performed By: #### C BC, BMPX #### [facility] [facility] [place] [address] Accredited Pharmacy Technician: Preet Castillo MD MCV (RBC) [Entitic vol] 96.0 fL Normal 82.6-102.9 [facility] Comment on above: Performed By: #### C BC, BMPX #### [facility] [address] [facility] [place] [address] Accredited Pharmacy Technician: Preet Castillo MD NRBC Automated 0.0 per 100 WBC Normal 0.0 [facility] Comment on above: Performed By: #### C BC, BMPX #### [facility] [address] [place] [address] Accredited Pharmacy Technician: Preet Castillo MD Platelet mean volume (Bld) [Entitic vol] 10.4 fL Normal 8.1-13.5 [facility] Comment on above: Performed By: #### C BC, BMPX #### [facility] [address] [place] [address]. [place] [address] Accredited Pharmacy Technician: Preet Castillo MD Platelets (Bld) [#/Vol] 196 10*3/uL Normal 138-453 [facility] Comment on above: Performed By: #### C NIKOLAI, BMPX #### [facility] [place] [address] Accredited Pharmacy Technician: Preet Castillo MD RBC (Bld) [#/Vol] 3.26 10*6/uL Low 4.21-5.77 [facility] Comment on above: Performed By: #### C BC, BMPX #### [facility] [place] [address] Accredited Pharmacy Technician: Preet Castillo MD WBC (Bld) [#/Vol] 6.1 10*3/uL Normal 3.5-11.3 [facility] Comment on above: Performed By: #### C BC, BMPX #### [facility] [address] [place] [address] Accredited Pharmacy Technician: Preet Castillo MD CBCOrdered By: Rachel logan on 08-22-2020 Hematocrit (Bld) [Volume fraction] 31.3 % Low 40.7 - 50.3 % [employer] Phone: Hemoglobin.gastrointe stinal spec 1 Ql (Stl) 10.1 g/dL Low 13.0 - 17.0 g/dL [employer] Phone: Interpretation and review of laboratory results Abnormal [employer] Phone: MCH (RBC) [Entitic mass] 31.0 pg 25.2 - 33.5 pg [employer] Phone: MCHC (RBC) [Mass/Vol] 32.3 g/dL 28.4 - 34.8 g/dL [employer] Phone: MCV (RBC) [Entitic vol] 96.0 fL 82.6 - 102.9 fL [employer] Phone: NRBC Automated 0.0 0.0 per 100 WBC [employer] Phone: Platelet distribution width (Bld) [Ratio] 12.9 % 11.8 - 14.4 % [employer] Phone: Platelet mean volume (Bld) [Entitic vol] 10.4 fL 8.1 - 13.5 fL [employer] Phone: Platelets (Bld) [#/Vol] 196 10*3/uL [employer] Phone: RBC (Bld) [#/Vol] 3.26 10*6/uL Low 4.21 - 5.77 m/uL [employer] Phone: WBC (Bld) [#/Vol] 6.1 10*3/uL [employer] Phone: [employer] Phone: CBC with DIFFOrdered By: Tabby Maharaj on 08-21-2020 Absolute Eos # 0.04 [employer] [facility] Work Phone: Absolute Immature Granulocyte 0.03 [employer] Work Phone: Absolute Lymph # 1.16 [employer] [facility] Work Phone: Absolute Mitchell # 0.76 [employer] [facility] Work Phone: Basophils (Bld) [#/Vol] 0.03 10*3/uL [employer] Work Phone: Basophils/100 WBC (Bld) 0 % 0 - 2 % [employer] Phone: Differential Type NOT REPORTED [employer] Phone: Eosinophils/100 WBC (Bld) 1 % 1 - 4 % [employer] Phone: Hematocrit (Bld) [Volume fraction] 32.2 % Low 40.7 - 50.3 % [employer] Work Phone: Hemoglobin.gastrointe stinal spec 1 Ql (Stl) 10.6 g/dL Low 13.0 - 17.0 g/dL [employer] Phone: Immature granulocytes/100 WBC (Bld) 0 % 0 [employer] Phone: Interpretation and review of laboratory results Abnormal [employer] Phone: Lymphocytes/100 WBC (Bld) 14 % Low 24 - 43 % [employer] Phone: MCH (RBC) [Entitic mass] 31.5 pg 25.2 - 33.5 pg [employer] Phone: MCHC (RBC) [Mass/Vol] 32.9 g/dL 28.4 - 34.8 g/dL [employer] Phone: MCV (RBC) [Entitic vol] 95.8 fL 82.6 - 102.9 fL [employer] Work Phone: Monocytes/100 WBC (Bld) 9 % 3 - 12 % [employer] Work Phone: NRBC Automated 0.0 0.0 per 100 WBC [employer] Phone: Platelet distribution width (Bld) [Ratio] 12.8 % 11.8 - 14.4 % [employer] Phone: Platelet Estimate NOT REPORTED [employer] Phone: Platelet mean volume (Bld) [Entitic vol] 9.7 fL 8.1 - 13.5 fL [employer] Phone: Platelets (Bld) [#/Vol] 211 10*3/uL [employer] Phone: RBC (Bld) [#/Vol] 3.36 10*6/uL Low 4.21 - 5.77 m/uL [employer] Phone: RBC (Bld) [#/Vol] NOT REPORTED [employer] Phone: Segmented neutrophils/100 WBC (Bld) 76 % High 36 - 65 % [employer] Phone: Segs Absolute 6.42 [employer] Work Phone: WBC (Bld) [#/Vol] 8.4 10*3/uL [employer] Phone: WBC (Bld) [#/Vol] NOT REPORTED [employer] Phone: [employer] Work Phone: CBC with Diffon 08-21-2020 Abs. Basophil 0.03 k/uL Normal 0.00-0.20 [facility] Comment on above: Performed By: #### C DP #### [facility] [address] [place] [address] Accredited Pharmacy Technician: Preet Castillo MD Abs.Imm.Granulocyte 0.03 k/uL Normal 0.00-0.30 [facility] Comment on above: Performed By: #### C DP #### [facility] [place] [address] Accredited Pharmacy Technician: Preet Castillo MD Abs.Neutrophil (Seg) 6.42 k/uL Normal 1.50-8.10 [facility] Comment on above: Performed By: #### C DP #### [facility] [address] [place] [address] Accredited Pharmacy Technician: Preet Castillo MD Basophils/100 WBC (Bld) 0 % Normal 0-2 [facility] Comment on above: Performed By: #### C DP #### [facility] [address] [place] [address]. [place] [address] Accredited Pharmacy Technician: Preet Castillo MD Eosinophils (Bld) [#/Vol] 0.04 10*3/uL Normal 0.00-0.44 [facility] Comment on above: Performed By: #### C DP #### [facility] [address] [place] [address]. [place] [address] Accredited Pharmacy Technician: Preet Castillo MD Eosinophils/100 WBC (Bld) 1 % Normal 1-4 [facility] Comment on above: Performed By: #### C DP #### [facility] [address] [place] [address] Accredited Pharmacy Technician: Preet Castillo MD Erythrocyte distribution width (RBC) [Ratio] 12.8 % Normal 11.8-14.4 [facility] Comment on above: Performed By: #### C DP #### [facility] [address] [place] [address]. [place] [address] Accredited Pharmacy Technician: Preet Castillo MD Hematocrit (Bld) [Volume fraction] 32.2 % Low 40.7-50.3 [facility] Comment on above: Performed By: #### C DP #### [facility] [place] [address] Accredited Pharmacy Technician: Preet Castillo MD Hemoglobin (Bld) [Mass/Vol] 10.6 g/dL Low 13.0-17.0 [facility] Comment on above: Performed By: #### C DP #### [facility] [address] [place] [address] Accredited Pharmacy Technician: Preet Castillo MD Immature granulocytes/100 WBC (Bld) 0 % Normal 0 [facility] Comment on above: Performed By: #### C DP #### [facility] [address] [place] [address]. [place] [address] Accredited Pharmacy Technician: Preet Castillo MD Lymphocytes (Bld) [#/Vol] 1.16 10*3/uL Normal 1.10-3.70 [facility] Comment on above: Performed By: #### C DP #### [facility] [address] [place] [address]. [place] [address] Accredited Pharmacy Technician: Preet Castillo MD Lymphocytes/100 WBC (Bld) 14 % Low 24-43 [facility] Comment on above: Performed By: #### C DP #### [facility] [address] [place] [address] Accredited Pharmacy Technician: Preet Castillo MD MCH (RBC) [Entitic mass] 31.5 pg Normal 25.2-33.5 [facility] Comment on above: Performed By: #### C DP #### [facility] [address] [place] [address]. [place] [address] Accredited Pharmacy Technician: Preet Castillo MD MCHC (RBC) [Mass/Vol] 32.9 g/dL Normal 28.4-34.8 [facility] Comment on above: Performed By: #### C DP #### [facility] [address] [place] [address] Accredited Pharmacy Technician: Preet Castillo MD MCV (RBC) [Entitic vol] 95.8 fL Normal 82.6-102.9 [facility] Comment on above: Performed By: #### C DP #### [facility] [address] [place] [address] Accredited Pharmacy Technician: Preet Castillo MD Monocytes (Bld) [#/Vol] 0.76 10*3/uL Normal 0.10-1.20 [facility] Comment on above: Performed By: #### C DP #### [facility] [address] [place] [address] Accredited Pharmacy Technician: Preet Castillo MD Monocytes/100 WBC (Bld) 9 % Normal 3-12 [facility] Comment on above: Performed By: #### C DP #### [facility] [address] [place] [address] Accredited Pharmacy Technician: Preet Castillo MD Neutrophil (Seg) 76 % High 36-65 [facility] Comment on above: Performed By: #### C DP #### [facility] [address] [place] [address] Accredited Pharmacy Technician: Preet Castillo MD NRBC Automated 0.0 per 100 WBC Normal 0.0 [facility] Comment on above: Performed By: #### C DP #### [facility] [address] [place] [address] Accredited Pharmacy Technician: Preet Castillo MD Platelet mean volume (Bld) [Entitic vol] 9.7 fL Normal 8.1-13.5 [facility] Comment on above: Performed By: #### C DP #### [facility] [address] [facility] [place] [address] Accredited Pharmacy Technician: Preet Castillo MD Platelets (Bld) [#/Vol] 211 10*3/uL Normal 138-453 [facility] Comment on above: Performed By: #### C DP #### [facility] [address] [facility] [place] [address] Accredited Pharmacy Technician: Preet Castillo MD RBC (Bld) [#/Vol] 3.36 10*6/uL Low 4.21-5.77 [facility] Comment on above: Performed By: #### C DP #### [facility] [address] [place] [address]. [place] [address] Accredited Pharmacy Technician: Preet Castillo MD WBC (Bld) [#/Vol] 8.4 10*3/uL Normal 3.5-11.3 [facility] Comment on above: Performed By: #### C DP #### [facility] [address] [place] [address]. [place] [address] Accredited Pharmacy Technician: Preet Castillo MD Auto Diff Performed NOT REPORTED Normal [facility] Comment on above: Performed By: #### C DP #### [facility] [address] [place] [address]. [place] [address] Accredited Pharmacy Technician: Preet Castillo MD Platelet Estimate NOT REPORTED Normal [facility] Comment on above: Performed By: #### C DP #### [facility] [address] [place] [address]. [place] [address] Accredited Pharmacy Technician: Preet Castillo MD RBC morphology finding Nom (Bld) NOT REPORTED Normal [facility] Comment on above: Performed By: #### C DP #### [facility] [address] [place] [phone] Accredited Pharmacy Technician: Preet Castillo MD WBC Morphology NOT REPORTED Normal [facility] Comment on above: Performed By: #### C DP #### [facility] [address] [place] [phone] Accredited Pharmacy Technician: Preet Castillo MD PROTIME-INROrdered By: Elisa Ferraro on 08-10-2020 INR Coag (Bld) [Relative time] 1.0 {INR} [facility] Work Phone: Comment on above: Non-therapeutic Range: INR = 0.9-1.2 Therapeutic Range: Moderate Anticoagulant Intensity: INR = 2.0-3.0 High Anticoagulant Intensity: INR = 2.5-3.5 PT Coag (PPP) [Time] 13.5 s [facility] [employer] Phone: [facility] [employer] Phone: PTon 08-10-2020 INR Coag (PPP) [Relative time] 1.0 {INR} Normal [facility] Comment on above: Result Comment: Non-therapeutic Range: INR = 0.9-1.2 Therapeutic Range: Moderate Anticoagulant Intensity: INR = 2.0-3.0 High Anticoagulant Intensity: INR = 2.5-3.5 Performed By: #### P T #### [facility] [address] [place] [address] Accredited Pharmacy Technician: Preet Castillo MD PT Coag (PPP) [Time] 13.5 s Normal 11.5-14.2 [facility] Comment on above: Performed By: #### P T #### [facility] [address] [place] [address] Accredited Pharmacy Technician: Preet Castillo MD PTon 08-09-2020 INR Coag (PPP) [Relative time] 1.0 {INR} Normal [facility] Comment on above: Result Comment: Non-therapeutic Range: INR = 0.9-1.2 Therapeutic Range: Moderate Anticoagulant Intensity: INR = 2.0-3.0 High Anticoagulant Intensity: INR = 2.5-3.5 Performed By: #### P T, PLT #### [facility] [address] [facility]. [place], [place] [id number] Accredited Pharmacy Technician: Preet Castillo MD PT Coag (PPP) [Time] 13.4 s Normal 11.5-14.2 [facility] Comment on above: Performed By: #### P T, PLT #### [facility] [address] [facility]. [place], [place] [id number] Accredited Pharmacy Technician: Preet Castillo MD Platelet Counton 08-09-2020 Platelets (Bld) [#/Vol] 144 10*3/uL Normal 138-453 [facility] Comment on above: Performed By: #### P T, PLT #### [facility] [address] [facility]. [place], [place] [id number] Accredited Pharmacy Technician: Preet Castillo MD Platelet CountOrdered By: Drake Ferraro on 08-09-2020 Platelets (Bld) [#/Vol] 144 10*3/uL [facility] [employer] Phone: [facility]: Protime-INROrdered By: Elisa Ferraro on 08-09-2020 INR Coag (Bld) [Relative time] 1.0 {INR} [facility] [employer] Phone: Comment on above: Non-therapeutic Range: INR = 0.9-1.2 Therapeutic Range: Moderate Anticoagulant Intensity: INR = 2.0-3.0 High Anticoagulant Intensity: INR = 2.5-3.5 PT Coag (PPP) [Time] 13.4 s [facility] [employer] Phone: [facility] Phone: XR KNEE RIGHT (1-2 VIEWS)on 08-09-2020 [...] Bradley Harper MD 08/09/20 Final result Normal [facility] XR KNEE RIGHT (1-2 VIEWS)Ord ered By: Elisa Ferraro on 08-09-2020 Recent postop change s right TKA [employer] Phone: EXAMINATION: TWO XRA Y VIEWS OF [...] are related to the recent surgical procedure. [employer] Phone: Golden, Mhpn Incoming R adiant Results From [facility] - 08/09/2020 3:43 PM EDT EXAMINATION: TWO [...] procedure. IMPRESSION: Recent postop changes right TKA [employer] Phone: [employer] Phone: EKG 12 LeadOrdered By: Elisa Ferraro on 07-16-2020 Atrial Rate 62 BPM [employer] Work Phone: P [place] 57 degrees [facility] Phone: P-R Interval 170 ms [employer] Phone: Q-T Interval 414 ms [employer] Phone: QRS Duration 74 ms [facility]: QTc Calculation (Bazett) 420 ms [employer] Phone: R Hamden 2 degrees [employer] Phone: T Hamden 23 degrees [employer] Phone: Ventricular Rate 62 BPM [employer] Work Phone: Normal sinus rhythm Normal ECG No previous ECGs available [employer] Phone: Golden, Mhpn Incoming E kg Results From [facility] - 07/16/2020 8:09 AM EDT Normal sinus rhythm Normal ECG No previous ECGs available [employer] Phone: [employer] Phone: MRSA DNA Probe, NasalOrdered By: Elisa Ferraro on 07-16-2020 Specimen Description .NASAL SWAB [facility] [employer] Phone: [employer] Phone: MRSA, DNA, NasalOrdered By: Elisa Ferraro on 07-16-2020 MRSA, DNA, Nasal NEGATIVE: MRSA DNA n ot detected by nucleic acid amplification. Normal NMRSAA [employer] Phone: Comment on above: Results should be [...] infections. Performed By: #### M RSANO #### [facility] [address] [place], [place] [id number] Accredited Pharmacy Technician: Preet Castillo MD [facility] [address] [place], [place] [id number] Accredited Pharmacy Technician: Jean Mo MD APTArturo 07-15-2020 aPTT Coag (Bld) [Time] 32.6 s Normal 23.9-33.8 [facility] Comment on above: Result Comment: IV Heparin Therapy Range: 62.0-94.0 Performed By: #### C BC, BMPX #### [facility] [address] [place], [place] [id number] Accredited Pharmacy Technician: Preet Castillo MD APTTOrdered By: Elisa ojeda on 07-15-2020 aPTT Coag (Bld) [Time] 32.6 s [facility] Work Phone: Comment on above: IV Heparin Therapy Range: 62.0-94.0 [facility] Work Phone: CBC Auto DifferentialOrdered By: Elisa Ferraro on 07-15-2020 Absolute Eos # 0.35 [facility] Work Phone: Absolute Immature Granulocyte 0.01 [facility] Work Phone: Absolute Lymph # 1.38 [facility] Work Phone: Absolute Mitchell # 0.73 [facility] Work Phone: Basophils (Bld) [#/Vol] 0.05 10*3/uL [facility] Work Phone: Basophils/100 WBC (Bld) 1 % 0 - 2 % [employer] Phone: Differential Type NOT REPORTED [employer] Phone: Eosinophils/100 WBC (Bld) 6 % High 1 - 4 % [employer] Phone: Hematocrit (Bld) [Volume fraction] 40.9 % 40.7 - 50.3 % [employer] Phone: Hemoglobin.gastrointe stinal spec 1 Ql (Stl) 14.1 g/dL 13.0 - 17.0 g/dL [employer] Phone: Immature granulocytes/100 WBC (Bld) 0 % 0 [employer] Phone: Interpretation and review of laboratory results Abnormal [employer] Phone: Lymphocytes/100 WBC (Bld) 24 % 24 - 43 % [employer] Phone: MCH (RBC) [Entitic mass] 32.1 pg 25.2 - 33.5 pg [employer] Phone: MCHC (RBC) [Mass/Vol] 34.5 g/dL 28.4 - 34.8 g/dL [employer] Phone: MCV (RBC) [Entitic vol] 93.2 fL 82.6 - 102.9 fL [employer] Phone: Monocytes/100 WBC (Bld) 13 % High 3 - 12 % [employer] Phone: NRBC Automated 0.0 0.0 per 100 WBC [employer] Phone: Platelet distribution width (Bld) [Ratio] 12.4 % 11.8 - 14.4 % [employer] Phone: Platelet Estimate NOT REPORTED [employer] Phone: Platelet mean volume (Bld) [Entitic vol] 10.4 fL 8.1 - 13.5 fL [employer] Work Phone: Platelets (Bld) [#/Vol] 135 10*3/uL Low [employer] Phone: RBC (Bld) [#/Vol] 4.39 10*6/uL 4.21 - 5.77 m/uL [employer] Work Phone: RBC (Bld) [#/Vol] NOT REPORTED [employer] Work Phone: Segmented neutrophils/100 WBC (Bld) 56 % 36 - 65 % [employer] Work Phone: Segs Absolute 3.30 [employer] Work Phone: WBC (Bld) [#/Vol] 5.8 10*3/uL [employer] Phone: WBC (Bld) [#/Vol] NOT REPORTED [employer] Phone: [employer] Phone: CBC with Diffon 07-15-2020 Abs. Basophil 0.05 k/uL Normal 0.00-0.20 [facility] Comment on above: Performed By: #### C NIKOLAI, BMPX #### [facility] [place] [address] Accredited Pharmacy Technician: Preet Castillo MD Abs.Imm.Granulocyte 0.01 k/uL Normal 0.00-0.30 [facility] Comment on above: Performed By: #### C NIKOLAI, BMPX #### [facility] [address] [place] [address] Accredited Pharmacy Technician: Preet Castillo MD Abs.Neutrophil (Seg) 3.30 k/uL Normal 1.50-8.10 [facility] Comment on above: Performed By: #### C NIKOLAI, BMPX #### [facility] [place] [address] Accredited Pharmacy Technician: Preet Castillo MD Basophils/100 WBC (Bld) 1 % Normal 0-2 [facility] Comment on above: Performed By: #### C BC, BMPX #### [facility] [address] [facility] [place] [address] Accredited Pharmacy Technician: Preet Castillo MD Eosinophils (Bld) [#/Vol] 0.35 10*3/uL Normal 0.00-0.44 [facility] Comment on above: Performed By: #### C BC, BMPX #### [facility] [address] [place] [address]. [place] [address] Accredited Pharmacy Technician: Preet Castillo MD Eosinophils/100 WBC (Bld) 6 % High 1-4 [facility] Comment on above: Performed By: #### C BC, BMPX #### [facility] [address] [place] [address] Accredited Pharmacy Technician: Preet Castillo MD Erythrocyte distribution width (RBC) [Ratio] 12.4 % Normal 11.8-14.4 [facility] Comment on above: Performed By: #### C BC, BMPX #### [facility] [address] [place] [address]. [place] [address] Accredited Pharmacy Technician: Preet Castillo MD Hematocrit (Bld) [Volume fraction] 40.9 % Normal 40.7-50.3 [facility] Comment on above: Performed By: #### C BC, BMPX #### [facility] [address] [place] [address]. [place] [address] Accredited Pharmacy Technician: Preet Castillo MD Hemoglobin (Bld) [Mass/Vol] 14.1 g/dL Normal 13.0-17.0 [facility] Comment on above: Performed By: #### C BC, BMPX #### [facility] [address] [facility] [place] [place] [address] Accredited Pharmacy Technician: Preet Castillo MD Immature granulocytes/100 WBC (Bld) 0 % Normal 0 [facility] Comment on above: Performed By: #### C BC, BMPX #### [facility] [place] [address] Accredited Pharmacy Technician: Preet Castillo MD Lymphocytes (Bld) [#/Vol] 1.38 10*3/uL Normal 1.10-3.70 [facility] Comment on above: Performed By: #### C BC, BMPX #### [facility] [address] [place] [address]. [place] [address] Accredited Pharmacy Technician: Preet Castillo MD Lymphocytes/100 WBC (Bld) 24 % Normal 24-43 [facility] Comment on above: Performed By: #### C BC, BMPX #### [facility] [address] [place] [address]. [place] [address] Accredited Pharmacy Technician: Preet Castillo MD MCH (RBC) [Entitic mass] 32.1 pg Normal 25.2-33.5 [facility] Comment on above: Performed By: #### C NIKOLAI, BMPX #### [facility] [address] [place] [address]. [place] [address] Accredited Pharmacy Technician: Preet Castillo MD MCHC (RBC) [Mass/Vol] 34.5 g/dL Normal 28.4-34.8 [facility] Comment on above: Performed By: #### C BC, BMPX #### [facility] [address] [place] [address]. [place] [address] Accredited Pharmacy Technician: Preet Castillo MD MCV (RBC) [Entitic vol] 93.2 fL Normal 82.6-102.9 [facility] Comment on above: Performed By: #### C BC, BMPX #### [facility] [address] [place] [address] Accredited Pharmacy Technician: Preet Castillo MD Monocytes (Bld) [#/Vol] 0.73 10*3/uL Normal 0.10-1.20 [facility] Comment on above: Performed By: #### C BC, BMPX #### [facility] [address] [facility] [place] [place] [address] Accredited Pharmacy Technician: Preet Castillo MD Monocytes/100 WBC (Bld) 13 % High 3-12 [facility] Comment on above: Performed By: #### C BC, BMPX #### [facility] [place] [address] Accredited Pharmacy Technician: Preet Castillo MD Neutrophil (Seg) 56 % Normal 36-65 [facility] Comment on above: Performed By: #### C BC, BMPX #### [facility] [place] [address] Accredited Pharmacy Technician: Preet Castillo MD NRBC Automated 0.0 per 100 WBC Normal 0.0 [facility] Comment on above: Performed By: #### C BC, BMPX #### [facility] [place] [address] Accredited Pharmacy Technician: Preet Castillo MD Platelet mean volume (Bld) [Entitic vol] 10.4 fL Normal 8.1-13.5 [facility] Comment on above: Performed By: #### C BC, BMPX #### [facility] [place] [address] Accredited Pharmacy Technician: Preet Castillo MD Platelets (Bld) [#/Vol] 135 10*3/uL Low 138-453 [facility] Comment on above: Performed By: #### C BC, BMPX #### [facility] [address] [facility] [place] [address] Accredited Pharmacy Technician: Preet Castillo MD RBC (Bld) [#/Vol] 4.39 10*6/uL Normal 4.21-5.77 [facility] Comment on above: Performed By: #### C BC, BMPX #### [facility] [address] [facility] [place] [place] [address] Accredited Pharmacy Technician: Preet Castillo MD WBC (Bld) [#/Vol] 5.8 10*3/uL Normal 3.5-11.3 [facility] Comment on above: Performed By: #### C BC, BMPX #### [facility] [address] [place] [address]. [place] [address] Accredited Pharmacy Technician: Preet Castillo MD Auto Diff Performed NOT REPORTED Normal [facility] Comment on above: Performed By: #### C BC, BMPX #### [facility] [address] [place] [address] Accredited Pharmacy Technician: Preet Castillo MD Platelet Estimate NOT REPORTED Normal [facility] Comment on above: Performed By: #### C BC, BMPX #### [facility] [place] [address] Accredited Pharmacy Technician: Preet Castillo MD RBC morphology finding Nom (Bld) NOT REPORTED Normal [facility] Comment on above: Performed By: #### C BC, BMPX #### [facility] [address] [place] [address]. [place] [address] Accredited Pharmacy Technician: Preet Castillo MD WBC Morphology NOT REPORTED Normal [facility] Comment on above: Performed By: #### C BC, BMPX #### [facility] [address] [place] [address] Accredited Pharmacy Technician: Preet Castillo MD Comp Metabolic Profon 2020 (cont.) Normal [facility] Comment on above: Result Comment: Aver age GFR for 70 or more years old: 75 mL/min/1.73sq m Chronic Kidney Disease: <60 mL/min/1.73sq m Kidney failure: <15 mL/min/1.73sq m eGFR calculated using average adult body mass. Additional eGFR calculator available at: http://www.[employer].Printio.ru/multiple_crcl_2011.htm Performed By: #### C BC, BMPX #### [facility] [address] [place] [address] Accredited Pharmacy Technician: Preet Castillo MD Alkaline Phos 71 U/L Normal 40-129 [facility] Comment on above: Performed By: #### C BC, BMPX #### [facility] [address] [place] [address] Accredited Pharmacy Technician: Preet Castillo MD BUN/CRE Ratio 41 High 9-20 [facility] Comment on above: Performed By: #### C BC, BMPX #### [facility] [address] [place] [address] Accredited Pharmacy Technician: Preet Castillo MD GFR, Amer >60 Normal >60 [facility] Comment on above: Performed By: #### C BC, BMPX #### [facility] [address] [place] [address] Accredited Pharmacy Technician: Preet Castillo MD GFR,non Amer >60 Normal >60 [facility] Comment on above: Performed By: #### C BC, BMPX #### [facility] [address] [place] [address] Accredited Pharmacy Technician: Preet Castillo MD Protein [Mass/Vol] 6.7 g/dL Normal 6.4-8.3 [facility] Comment on above: Performed By: #### C BC, BMPX #### [facility] [address] [place] [address] Accredited Pharmacy Technician: Preet Castillo MD Urea nitrogen [Mass/Vol] 26 mg/dL High 8-23 [facility] Comment on above: Performed By: #### C BC, BMPX #### [facility] [address] [place] [address] Accredited Pharmacy Technician: Preet Castillo MD Albumin/Glob Ratio NOT REPORTED Normal 1.0-2.5 [facility] Comment on above: Performed By: #### C BC, BMPX #### [facility] [address] [place] [address] Accredited Pharmacy Technician: Preet Castillo MD Staging: NOT REPORTED Normal [facility] Comment on above: Performed By: #### C BC, BMPX #### [facility] [address] [place] [address] Accredited Pharmacy Technician: Preet Castillo MD Comp Metabolic ProfOrdered B y: Elisa Jasmine on 07-15-2020 Albumin [Mass/Vol] 4.1 g/dL Normal 3.5-5.2 [facility] Work Phone: Comment on above: Performed By: #### C BC, BMPX #### [facility] [address] [place] [address] Accredited Pharmacy Technician: Preet Castillo MD ALT [Catalytic activity/Vol] 12 U/L Normal 5-41 [facility] Work Phone: Comment on above: Performed By: #### C BC, BMPX #### [facility] [address] [place] [address] Accredited Pharmacy Technician: Preet Castillo MD Anion gap [Moles/Vol] 13 mmol/L Normal 9-17 [facility] [employer] Work Phone: Comment on above: Performed By: #### C BC, BMPX #### [facility] [address] [place] [address] Accredited Pharmacy Technician: Preet Castillo MD AST [Catalytic activity/Vol] 16 U/L Normal <40 [facility] [employer] Work Phone: Comment on above: Performed By: #### C NIKOLAI, BMPX #### [facility] [address] [place] [address] Accredited Pharmacy Technician: Preet Castillo MD Bilirubin [Mass/Vol] 0.55 mg/dL Normal 0.3-1.2 [facility] [employer] Work Phone: Comment on above: Performed By: #### Lucretia MENCHACA, BMPX #### [facility] [address] [place] [address] Accredited Pharmacy Technician: Preet Castillo MD Calcium [Mass/Vol] 8.7 mg/dL Normal 8.6-10.4 [facility] [employer] Phone: Comment on above: Performed By: #### C NIKOLAI, BMPX #### [facility] [address] [place] [address] Accredited Pharmacy Technician: Preet Castillo MD Chloride [Moles/Vol] 105 mmol/L Normal 98-107 [facility] [employer] Work Phone: Comment on above: Performed By: #### C BC, BMPX #### [facility] [address] [place] [address] Accredited Pharmacy Technician: Preet Castillo MD CO2 [Moles/Vol] 21 mmol/L Normal 20-31 [facility] Work Phone: Comment on above: Performed By: #### C BC, BMPX #### [facility] [address] [place] [address] Accredited Pharmacy Technician: Preet Castillo MD Creatinine [Mass/Vol] 0.64 mg/dL Low 0.70-1.20 [facility] [employer] Work Phone: Comment on above: Performed By: #### C NIKOLAI, BMPX #### [facility] [address] [place] [address] Accredited Pharmacy Technician: Preet Castillo MD Glucose [Mass/Vol] 88 mg/dL Normal 70-99 [facility] Work Phone: Comment on above: Performed By: #### C NIKOLAI, BMPX #### [facility] [address] [place] [address] Accredited Pharmacy Technician: Preet Castillo MD Potassium [Moles/Vol] 4.7 mmol/L Normal 3.7-5.3 [facility] [employer] Work Phone: Comment on above: Performed By: #### Lucretia MENCHACA, BMPX #### [facility] [address] [place] [address] Accredited Pharmacy Technician: Preet Castillo MD Sodium [Moles/Vol] 139 mmol/L Normal 135-144 [facility] [employer] Work Phone: Comment on above: Performed By: #### C NIKOLAI, BMPX #### [facility] [address] [place] [address] Accredited Pharmacy Technician: Preet Castillo MD Comprehensive Metabolic Pane lOrdered By: Elisa Ferraro on 07-15-2020 Albumin/Globulin Ratio NOT REPORTED [facility] [employer] Work Phone: ALP (Bld) [Catalytic activity/Vol] 71 U/L 40 - 129 U/L [employer] Phone: Free PSA/Total PSA [Mass fraction] 6.7 g/dL 6.4 - 8.3 g/dL [employer] Phone: GFR >60 >60 mL/min [employer] Private Phone: GFR Non- >60 >60 mL/min [employer] Phone: GFR/1.73 sq M.predicted MDRD (S/P/Bld) [Vol rate/Area] [employer] Phone: Comment on above: Average GFR for 70 o r more years old: 75 mL/min/1.73sq m Chronic Kidney Disease: <60 mL/min/1.73sq m Kidney failure: <15 mL/min/1.73sq m eGFR calculated using average adult body mass. Additional eGFR calculator available at: http://www.[employer]/multiple_crcl_2012.htm GFR/1.73 sq M.predicted MDRD (S/P/Bld) [Vol rate/Area] NOT REPORTED [employer] Phone: Interpretation and review of laboratory results Abnormal [employer] Phone: Urea nitrogen (BldV) [Mass/Vol] 26 mg/dL High 8 - 23 mg/dL [employer] Phone: Urea nitrogen/Creatinine (Bld) [Mass ratio] 41 High [employer] Phone: [employer] Phone: MRSA, DNA, Nasalon 1 Specimen Description .NASAL SWAB Normal [facility] Comment on above: Performed By: #### M RSANO #### [facility] [address] [place] [address] Accredited Pharmacy Technician: Preet Castillo MD [facility] [employer] [address] [place] [address] Accredited Pharmacy Technician: Jean Mo MD PTon 07-15-2020 INR Coag (PPP) [Relative time] 1.8 {INR} Normal [facility] Comment on above: Result Comment: Non-therapeutic Range: INR = 0.9-1.2 Therapeutic Range: Moderate Anticoagulant Intensity: INR = 2.0-3.0 High Anticoagulant Intensity: INR = 2.5-3.5 Performed By: #### C BC, BMPX #### [facility] [address] [place], [place] [address] Accredited Pharmacy Technician: Preet Castillo MD PT Coag (PPP) [Time] 20.8 s High 11.5-14.2 [facility] Comment on above: Performed By: #### C BC, BMPX #### [facility] [address] [facility] [place], [place] [id number] Accredited Pharmacy Technician: Preet Castillo MD Protime-INROrdered By: Elisa Ferraro on 07-15-2020 INR Coag (Bld) [Relative time] 1.8 {INR} [facility] [employer] Phone: Comment on above: Non-therapeutic Range: INR = 0.9-1.2 Therapeutic Range: Moderate Anticoagulant Intensity: INR = 2.0-3.0 High Anticoagulant Intensity: INR = 2.5-3.5 Interpretation and review of laboratory results Abnormal [facility] [employer] Phone: PT Coag (PPP) [Time] 20.8 s High [facility] [employer] Phone: [facility] Work Phone: Sedimentation Rateon 021 Sedimentation Rate 11 mm Normal 0-20 [facility] Comment on above: Performed By: #### C BC, BMPX #### [facility] [address] [facility] [place], [place] [id number] Accredited Pharmacy Technician: Preet Castillo MD Sedimentation RateOrdered By : Elisa Ferraro on 07-15-2020 Sed Rate 11 mm 0 - 20 mm [facility] [employer] Work Phone: [facility] [employer] Work Phone: TYPE AND SCREENOrdered By: Xiang Pedro on 07-15-2020 ABO/Rh Positive [facility] Work Phone: Arm Band Number [id number] [facility] Work Phone: Expiration Date 08/12/2020,2359 [facility] [employer] Work Phone: [facility] [employer] Work Phone: Type + Screenon 07-15-2020 Type + Screen Sample Expiration 08/12/2020,2359 Arm Band Number [id number] ABO/Rh(D) A POSITIVE Antibody Screen NEGATIVE Normal [facility] Comment on above: Performed By: #### T YS #### [facility] [address] [place] [address] Accredited Pharmacy Technician: Preet Castillo MD UA w/Reflex Cultureon 2020 Bilirubin, SemiQt,Ur Negative Normal NEG [facility] Comment on above: Performed By: #### U AX #### [facility] [address] [place] [address] Accredited Pharmacy Technician: Preet Castillo MD Blood, Urine Negative Normal NEG [facility] Comment on above: Performed By: #### U AX #### [facility] [address] [place] [address] Accredited Pharmacy Technician: Preet Castillo MD Clarity (U) CLEAR Normal CLEAR [facility] Comment on above: Performed By: #### U AX #### [facility] [address] [place], [place] [id number] Accredited Pharmacy Technician: Preet Castillo MD Color (U) YELLOW Normal YEL [facility] Comment on above: Performed By: #### U AX #### [facility] [address] [place] [address] Accredited Pharmacy Technician: Preet Castillo MD Glucose Ql (U) Negative Normal NEG [facility] Comment on above: Performed By: #### U AX #### [facility] [address] [place] [address] Accredited Pharmacy Technician: Preet Castillo MD Ketones Ql (U) Negative Normal NEG [facility] Comment on above: Performed By: #### U AX #### [facility] [address] [facility] [place] [address] Accredited Pharmacy Technician: Preet Castillo MD Leukocyte esterase Test strip Ql (U) Negative Normal NEG [facility] Comment on above: Performed By: #### U AX #### [facility] [address] [place] [address] Accredited Pharmacy Technician: Preet Castillo MD Nitrite,Ur Negative Normal NEG [facility] Comment on above: Performed By: #### U AX #### [facility] [address] [facility] [place] [address] Accredited Pharmacy Technician: Preet Castillo MD PH,Ur 5.5 Normal 5.0-8.0 [facility] Comment on above: Performed By: #### U AX #### [facility] [address] [place] [address] Accredited Pharmacy Technician: Preet Castillo MD Protein Ql (U) Negative Normal NEG [facility] Comment on above: Performed By: #### U AX #### [facility] [address] [place] [address] Accredited Pharmacy Technician: Preet Castillo MD Spec. [place],Ur 1.025 Normal 1.005-1.03 0 [facility] Comment on above: Performed By: #### U AX #### [facility] [address] [facility] [place] [address] Accredited Pharmacy Technician: Preet Castillo MD Urobilinogen,Ur Normal Normal NORM [facility] Comment on above: Performed By: #### U AX #### [facility] [place] [address] Accredited Pharmacy Technician: Preet Castillo MD Comment NOT REPORTED Normal [facility] Comment on above: Performed By: #### U AX #### [facility] [address] [place] [address]. [place] [address] Accredited Pharmacy Technician: Preet Castillo MD Urinalysis Reflex to Culture Ordered By: Elisa Ferraro on 07-15-2020 Bilirubin Urine Negative NEGATIVE [facility] Work Phone: Color, UA YELLOW YELLOW [facility] Work Phone: Glucose, Ur Negative NEGATIVE [facility] Work Phone: Ketones Ql (U) Negative NEGATIVE [facility] Work Phone: Leukocyte esterase Test strip Ql (U) Negative NEGATIVE [facility] Work Phone: Nitrite, Urine Negative NEGATIVE [facility] Work Phone: pH, UA 5.5 [facility] Work Phone: Protein, UA Negative NEGATIVE [facility] Work Phone: Specific [place], UA 1.025 [facility] [employer] Work Phone: Turbidity UA CLEAR CLEAR [facility] Work Phone: Urinalysis Comments NOT REPORTED [employer] Work Phone: Urine Hgb Negative NEGATIVE [facility] Work Phone: Urobilinogen, Urine Normal Normal [employer] Phone: [employer] Phone: OVon 08-13-2017 CNOV Office Visit (VASSFT) YANELIS NORIEGA ([id number]) 1945 [employer] Time Provider Department08/13/17 11:45 AM CURT CHOWDHURY During your visit today, we recorded the following information about you: Pulse Respiration Blood pressure Weight 66/minute 16/minute 123/70 80.7 kg Height 1.689 Cameron Chowdhury MD 08/13/2017 12:[address] 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 May undergo furtherevaluation with hematology for further evaluation.Consider changing coumadin to NOAC to ease anticoagulation.He may follow up as needed.HAILEE Majoreferring Provider: BLU VELEZ [[id number]]Allergies As of Date: 08/13/2017 Noted Allergy ReactionIODINE [...] to improve.Follow-up and Disposition History RecordedEncounter Number: [id number] Status:Closed by CURT CHOWDHURY MD on 08/13/17 [facility] PROGRESSon 08-13-2017 PROGRESS HNO ID: [id number] thor: Curt Benson: (none)Author Type: PhysicianType: Progress NotesFiled: 08/13/2017 12:05 PMNote Text:[facility] Department of Cardiovascular MedicineOUTPATIENT VISIT DATE August 13, 2017OUTPATIENT VISIT TYPENEWPRIMARY CARE PHYSICIAN:Blu Velez MD ([facility])[address] [place], [place] [address]Ahqto: [phone]: [phone] PHYSICIANBenmary Velez MD ([facility])[address] [facility] ABUNIVERSITY H[facility] PORT[facility] MEDICAL [email or web address] [place] [address]QCBQN COMPLAINT:No chief complaint on file.HISTORY OF PRESENT ILLNESS:Yanelis Noriega was referred for consultation by Dr. Velez. Opinions andrecommendations in this consultation will be transmitted back to thereferring physician by [facility] notes or via mail.Mr. Noriega is [...] follow up as needed.Curt Chowdhury MD Normal [facility] Vital Signs Date Time Vital Sign Value Performing Clinician Facility 08-04-2024 13:33-0400 Body height 170.18 cm [facility] 08-04-2024 13:33-0400 Body mass index (BMI) [Ratio] 28 kg/m2 [facility] 08-04-2024 13:33-0400 Body weight 81.19 kg [facility] 08-04-2024 13:33-0400 Diastolic blood pressure 65 mm[Hg] [facility] 08-04-2024 13:33-0400 Heart rate 62 /min [facility] 08-04-2024 13:33-0400 Respiratory rate 12 /min [facility] 08-04-2024 13:33-0400 Systolic blood pressure 107 mm[Hg] [facility] 07-02-2024 10:46-0400 Body height 171.5 cm Teo Johnson MD Work Phone: [facility] 07-02-2024 10:46-0400 Body mass index (BMI) [Ratio] 27.96 kg/m2 Teo Johnson MD Work Phone: [facility] 07-02-2024 10:46-0400 Body weight 82.19 kg Teo Johnson MD Work Phone: [facility] 07-02-2024 10:46-0400 Diastolic blood pressure 66 mm[Hg] Teo Johnson MD Work Phone: [facility] 07-02-2024 10:46-0400 Heart rate 68 /min Teo Johnson MD Work Phone: [facility] 07-02-2024 10:46-0400 Systolic blood pressure 118 mm[Hg] Teo Johnson MD Work Phone: [facility] 05-05-2024 16:00-0400 Diastolic blood pressure 67 mm[Hg] Blu Ball DO Work Phone: [facility] 05-05-2024 16:00-0400 Heart rate 72 /min Blu Ball DO Work Phone: [facility] 05-05-2024 16:00-0400 Respiratory rate 16 /min Blu Ball DO Work Phone: [facility] 05-05-2024 16:00-0400 SaO2% (BldA) [Mass fraction] 97 % Blu Ball DO Work Phone: [facility] 05-05-2024 16:00-0400 Systolic blood pressure 104 mm[Hg] Blu Ball DO Work Phone: [facility] 05-05-2024 09:06-0400 Body height 172.72 cm Blu Ball DO Work Phone: [facility] 05-05-2024 09:06-0400 Body temperature 98 [degF] Blu Ball DO Work Phone: [facility] 05-05-2024 09:06-0400 Body weight 82 kg Blu Ball DO Work Phone: [facility] 05-01-2024 11:25-0500 Body height 172.7 cm Ashutosh Miller DPM Work Phone: [facility] 05-01-2024 11:25-0500 Body mass index (BMI) [Ratio] 27.37 kg/m2 Ashutosh Miller DPM Work Phone: [facility] 05-01-2024 11:25-0500 Body weight 81.65 kg Ashutosh Miller DPM Work Phone: [facility] 05-01-2024 11:25-0500 Respiratory rate 18 /min Ashutosh Miller DPM Work Phone: [facility] 04-08-2024 10:12-0500 Diastolic blood pressure 86 mm[Hg] Salena 1 [facility] 04-08-2024 10:12-0500 Heart rate 63 /min Salena 1 [facility] 04-08-2024 10:12-0500 Systolic blood pressure 128 mm[Hg] Salena 1 [facility] 03-26-2024 11:36-0500 Body height 171.5 cm Teo Johnson MD Work Phone: [facility] 03-26-2024 11:36-0500 Body mass index (BMI) [Ratio] 27.93 kg/m2 Teo Johnson MD Work Phone: [facility] 03-26-2024 11:36-0500 Body weight 82.1 kg Teo Johnson MD Work Phone: [facility] 03-26-2024 11:36-0500 Diastolic blood pressure 60 mm[Hg] Teo Johnson MD Work Phone: [facility] 03-26-2024 11:36-0500 Heart rate 72 /min Teo Johnson MD Work Phone: [facility] 03-26-2024 11:36-0500 Systolic blood pressure 104 mm[Hg] Teo Johnson MD Work Phone: [facility] 02-21-2024 11:45-0500 Body height 172.7 cm Ashutosh Miller DPM Work Phone: [facility] 02-21-2024 11:45-0500 Body mass index (BMI) [Ratio] 27.37 kg/m2 Ashutosh Miller DPM Work Phone: [facility] 02-21-2024 11:45-0500 Body weight 81.65 kg Ashutosh Miller DPM Work Phone: [facility] 02-21-2024 11:45-0500 Respiratory rate 18 /min Ashutosh Miller DPM Work Phone: [facility] 02-13-2024 13:32-0500 Body height 172.72 cm Blu Ball DO Work Phone: [facility] 02-13-2024 13:32-0500 Body mass index (BMI) [Ratio] 27.5 kg/m2 Blu Ball DO Work Phone: [facility] 02-13-2024 13:32-0500 Body weight 82.1 kg Blu Ball DO Work Phone: [facility] 02-13-2024 13:32-0500 Diastolic blood pressure 64 mm[Hg] Blu Ball DO Work Phone: [facility] 02-13-2024 13:32-0500 Heart rate 65 /min Blu Ball DO Work Phone: [facility] 02-13-2024 13:32-0500 Respiratory rate 12 /min Blu Ball DO Work Phone: [facility] 02-13-2024 13:32-0500 Systolic blood pressure 110 mm[Hg] Blu Ball DO Work Phone: [facility] 12-13-2023 11:28-0400 Body height 172.7 cm Ashutosh Miller DPM Work Phone: [facility] 12-13-2023 11:28-0400 Body mass index (BMI) [Ratio] 27.37 kg/m2 Ashutosh Miller DPM Work Phone: [facility] 12-13-2023 11:28-0400 Body weight 81.65 kg Ashutosh Miller DPM Work Phone: [facility] 12-13-2023 11:28-0400 Diastolic blood pressure 80 mm[Hg] Ashutosh Miller DPM Work Phone: [facility] 12-13-2023 11:28-0400 Heart rate 85 /min Ashutosh Miller DPM Work Phone: [facility] 12-13-2023 11:28-0400 Systolic blood pressure 124 mm[Hg] Ashutosh Miller DPM Work Phone: [facility] 11-20-2023 13:48-0400 Body height 172.72 cm DO Blu Ball Work Phone: [facility] 11-20-2023 13:48-0400 Body mass index (BMI) [Ratio] 27.8 kg/m2 DO Blu Ball Work Phone: [facility] 11-20-2023 13:48-0400 Body temperature 97.8 [degF] DO Blu Ball Work Phone: [facility] 11-20-2023 13:48-0400 Body weight 83 kg DO Blu Ball Work Phone: [facility] 11-20-2023 13:48-0400 Diastolic blood pressure 78 mm[Hg] DO Blu Ball Work Phone: [facility] 11-20-2023 13:48-0400 Heart rate 75 /min DO Blu Ball Work Phone: [facility] 11-20-2023 13:48-0400 SaO2% (BldA) [Mass fraction] 97 % DO Blu Ball Work Phone: [facility] 11-20-2023 13:48-0400 Systolic blood pressure 128 mm[Hg] DO Blu Ball Work Phone: [facility] 08-10-2023 09:17-0400 Body height 172.72 cm [facility] 08-10-2023 09:17-0400 Body mass index (BMI) [Ratio] 27.8 kg/m2 [facility] 08-10-2023 09:17-0400 Body weight 83.23 kg [facility] 08-10-2023 09:17-0400 Diastolic blood pressure 66 mm[Hg] [facility] 08-10-2023 09:17-0400 Heart rate 66 /min [facility] 08-10-2023 09:17-0400 Respiratory rate 16 /min [facility] 08-10-2023 09:17-0400 Systolic blood pressure 117 mm[Hg] [facility] 05-10-2023 08:37-0400 Body height 172.72 cm [facility] 05-10-2023 08:37-0400 Body mass index (BMI) [Ratio] 28.5 kg/m2 [facility] 05-10-2023 08:37-0400 Body weight 85.27 kg [facility] 05-10-2023 08:37-0400 Diastolic blood pressure 68 mm[Hg] [facility] 05-10-2023 08:37-0400 Heart rate 76 /min [facility] 05-10-2023 08:37-0400 Respiratory rate 20 /min [facility] 05-10-2023 08:37-0400 Systolic blood pressure 129 mm[Hg] [facility] 04-19-2023 10:19-0500 Body height 172.72 cm [facility] 04-19-2023 10:19-0500 Body mass index (BMI) [Ratio] 27.4 kg/m2 [facility] 04-19-2023 10:19-0500 Body weight 81.81 kg [facility] 04-19-2023 10:19-0500 Diastolic blood pressure 82 mm[Hg] [facility] 04-19-2023 10:19-0500 Heart rate 74 /min [facility] 04-19-2023 10:19-0500 Respiratory rate 20 /min [facility] 04-19-2023 10:19-0500 Systolic blood pressure 125 mm[Hg] [facility] 02-08-2023 09:00-0500 Body height 172.72 cm [facility] 02-08-2023 09:00-0500 Body weight 83.91 kg [facility] 02-08-2023 09:00-0500 Diastolic blood pressure 71 mm[Hg] [facility] 02-08-2023 09:00-0500 Systolic blood pressure 141 mm[Hg] [facility] 12-21-2022 10:35-0400 Body height 170.[address] 12-21-2022 10:35-0400 Body mass index (BMI) [Ratio] 28.51 kg/m2 [address] 12-21-2022 10:35-0400 Body weight 82.[address] 11-09-2022 10:17-0400 Diastolic blood pressure 44 mm[Hg] Blu Hylton Ball Work Phone: [facility] [address] DO Work Phone: 11-09-2022 10:17-0400 Systolic blood pressure 122 mm[Hg] Blu E Ball Work Phone: [facility] [address] DO Work Phone: 11-09-2022 09:57-0400 Diastolic blood pressure 92 mm[Hg] Blu E Ball Work Phone: [facility] [address] DO Work Phone: 11-09-2022 09:57-0400 Systolic blood pressure 142 mm[Hg] Blu E Ball Work Phone: [facility] [address] DO Work Phone: 11-09-2022 09:56-0400 Body height 170.18 cm Blu E Ball Work Phone: [facility] 250 DO Work Phone: 11-09-2022 09:56-0400 Body mass index (BMI) [Ratio] 28.51 kg/m2 Blu E Ball Work Phone: [facility] 250 DO Work Phone: 11-09-2022 09:56-0400 Body surface area Derived from formula 1.94 m2 Blu E Ball Work Phone: [facility] 250 DO Work Phone: 11-09-2022 09:56-0400 Body weight 82.56 kg Blu E Ball Work Phone: [facility] 250 DO Work Phone: 11-09-2022 09:56-0400 Diastolic blood pressure 98 mm[Hg] Blu E Ball Work Phone: [facility] [employer] 250 DO Work Phone: 11-09-2022 09:56-0400 Heart rate 61 /min Blu E Ball Work Phone: [facility] [employer] 250 DO Work Phone: 11-09-2022 09:56-0400 Systolic blood pressure 150 mm[Hg] Blu E Ball Work Phone: [facility] [employer] 250 DO Work Phone: 09-05-2022 10:00-0400 Body height 172.72 cm Blu Ball Other [facility] [employer] Other 09-05-2022 10:00-0400 Body mass index (BMI) [Ratio] 27.91 kg/m2 Blu Ball Other [facility] [employer] Other 09-05-2022 10:00-0400 Body weight 83.28 kg Blu Ball Other [facility] [employer] Other 09-05-2022 10:00-0400 Diastolic blood pressure 67 mm[Hg] Blu Ball Other [place] [employer] Other 09-05-2022 10:00-0400 Respiratory rate 20 /min Blu Ball Other [place] [employer] Other 09-05-2022 10:00-0400 Systolic blood pressure 128 mm[Hg] Blu Ball Other [employer] Other 08-30-2022 09:14-0400 Blood Pressure Location Clarisa Ibarra [facility] 08-30-2022 09:14-0400 Diastolic blood pressure 77 mm[Hg] Clarisa Lue [facility] 08-30-2022 09:14-0400 Heart rate 68 /min Clarisa Lue [facility] 08-30-2022 09:14-0400 Systolic blood pressure 125 mm[Hg] Clarisa Lue [facility] 08-22-2020 07:16-0400 Body temperature 98.1 [degF] Mamadou Adame MD Work Phone: [employer] Work Phone: 08-22-2020 07:16-0400 Diastolic blood pressure 64 mm[Hg] Mamadou Adame MD Work Phone: [employer] Work Phone: 08-22-2020 07:16-0400 Heart rate 67 /min Mamadou Adame MD Work Phone: [employer] Work Phone: 08-22-2020 07:16-0400 Respiratory rate 16 /min Mamadou Adame MD Work Phone: [employer] Work Phone: 08-22-2020 07:16-0400 SaO2% (BldA) [Mass fraction] 97 % Mamadou Adame MD Work Phone: [employer] Work Phone: 08-22-2020 07:16-0400 Systolic blood pressure 144 mm[Hg] Mamadou Adame MD Work Phone: [employer] Work Phone: 08-22-2020 05:53-0400 Body mass index (BMI) [Ratio] 27.37 kg/m2 Mamadou Adame MD Work Phone: [employer] Work Phone: 08-22-2020 05:53-0400 Body weight 81.65 kg Mamadou Adame MD Work Phone: [employer] Work Phone: 08-21-2020 11:09-0400 Body height 172.7 cm Mamadou Adame MD Work Phone: [employer] Work Phone: 08-10-2020 11:16-0400 Body temperature 98.4 [degF] Elisa Ferraro MD Work Phone: [employer] Work Phone: 08-10-2020 11:16-0400 Diastolic blood pressure 64 mm[Hg] Elisa Ferraro MD Work Phone: [employer] Work Phone: 08-10-2020 11:16-0400 Heart rate 73 /min Elisa Ferraro MD Work Phone: [employer] Work Phone: 08-10-2020 11:16-0400 Respiratory rate 16 /min Elisa Ferraro MD Work Phone: [employer] Work Phone: 08-10-2020 11:16-0400 SaO2% (BldA) [Mass fraction] 97 % Elisa Ferraro MD Work Phone: [employer] Work Phone: 08-10-2020 11:16-0400 Systolic blood pressure 144 mm[Hg] Elisa Ferraro MD Work Phone: [employer] Work Phone: 08-10-2020 04:10-0400 Body mass index (BMI) [Ratio] 28.4 kg/m2 Elisa Ferraro MD Work Phone: [employer] Work Phone: 08-10-2020 04:10-0400 Body weight 84.73 kg Elisa Ferraro MD Work Phone: [employer] Phone: 08-09-2020 08:01-0400 Body height 172.7 cm Elisa Ferraro MD Work Phone: [employer] Phone: 07-15-2020 09:25-0400 Body height 172.7 cm Sta 1 [employer] Work Phone: 07-15-2020 09:25-0400 Body mass index (BMI) [Ratio] 27.46 kg/m2 Sta [facility] [employer] Phone: 07-15-2020 09:25-0400 Body temperature 98.6 [degF] Sta 1 [employer] Phone: 07-15-2020 09:25-0400 Body weight 81.92 kg Sta 1 [employer] Work Phone: 07-15-2020 09:25-0400 Diastolic blood pressure 57 mm[Hg] Sta 1 [employer] Phone: 07-15-2020 09:25-0400 Heart rate 69 /min Sta 1 [employer] Phone: 07-15-2020 09:25-0400 Respiratory rate 16 /min Sta 1 [employer] Phone: 07-15-2020 09:25-0400 SaO2% (BldA) [Mass fraction] 97 % Sta 1 [employer] Phone: 07-15-2020 09:25-0400 Systolic blood pressure 136 mm[Hg] Sta 1 [employer] Phone: Encounters Encounter Date Encounter Type Care Provider Facility Start: 08-18-2024 End: 08-18-2024 Patient encounter procedure Leah Sanford APPLICATION TECHNICIAN-HOT BOX CHECKER Work Phone: [facility] Comment on above: Neoplasm of unspecif ied behavior of bone, soft tissue, and skin Start: 08-18-2024 End: 08-18-2024 ambulatory LEAH SANFORD Not Available Start: 08-18-2024 End: 08-18-2024 Bamboo flowsheet Leah Cabral Felter APPLICATION TECHNICIAN-HOT BOX CHECKER Work Phone: [facility] Start: 08-18-2024 End: 08-18-2024 Bamboo flowsheet Leah Cabral Felter APPLICATION TECHNICIAN-HOT BOX CHECKER Work Phone: [facility] Start: 08-04-2024 End: 08-04-2024 ambulatory [facility] Work Phone: Start: 08-04-2024 End: 08-04-2024 Patient encounter procedure [facility] Work Phone: Start: 07-17-2024 End: 07-17-2024 ambulatory ASHUTOSH MILLER Not Available Start: 07-02-2024 End: 07-02-2024 Office outpatient visit 25 minutes Teo Johnson MD Work Phone: [facility] Comment on above: Coronary artery dise ase involving walker river coronary artery of walker river heart without angina pectoris; Hypertension, unspecified type; Hyperlipidemia, unspecified hyperlipidemia type; PFO (patent foramen ovale) ([facility]); History of DVT (deep vein thrombosis); High risk medication use; BMI 27.0-27.9,adult; Former smoker Start: 07-02-2024 End: 07-02-2024 ambulatory TEO Tan [facility] Start: 05-05-2024 End: 05-05-2024 Admission to same day surgery center Blu Velez DO Work Phone: [facility] Work Phone: Start: 05-05-2024 End: 05-05-2024 ambulatory Blu Velez DO Work Phone: [facility] Work Phone: Start: 05-02-2024 End: 05-02-2024 Patient encounter procedure Blu Velez DO Work Phone: [facility] Work Phone: Start: 05-02-2024 End: 05-02-2024 ambulatory Blu Velez DO Work Phone: [facility] Work Phone: Start: 05-02-2024 Encounter for preprocedural laboratory examination Teo Garcia [facility] Start: 05-01-2024 End: 05-01-2024 Bamboo flowsheet Ashutosh Milelr DPM Work Phone: [facility] Start: [...] hospital visit by physician Salena Alexander 1 [facility] Comment on above: Shortness of breath Start: 04-29-2024 End: 04-29-2024 ambulatory TEO [facility] Start: 04-08-2024 End: 04-08-2024 Subsequent hospital visit by physician Salena Clemons Stress Room 1 [facility] Comment on above: Shortness of breath Start: 04-08-2024 End: 04-08-2024 ambulatory TEO [facility] Start: 03-26-2024 End: 03-26-2024 Office outpatient visit 25 minutes Teo Johnson MD Work Phone: [facility] Comment on above: Primary hypertension (Primary Dx); PFO (patent foramen ovale) ([facility]); Shortness of breath; High risk medication use; History of DVT (deep vein thrombosis); Dyslipidemia; Overweight; BMI 27.0-27.9,adult; Former smoker Start: 03-26-2024 End: 03-26-2024 ambulatory [facility] Start: 02-21-2024 End: 02-21-2024 Bamboo flowsheet [...] Benjam in Ball DO Work Phone: [facility] Work Phone: Start: 02-13-2024 End: 02-13-2024 Patient encounter procedure Blu Ball DO Work Phone: [facility] Work Phone: Start: 02-12-2024 Patient encounter procedure Blu Ball DO Work Phone: [facility] Start: 02-09-2024 Non-patient / Non-visit Benjam in Ball DO Work Phone: [facility] Work Phone: Start: 12-19-2023 End: 12-19-2023 ambulatory [facility] Work Phone: Start: 12-19-2023 End: 12-19-2023 Patient encounter procedure [facility] Work Phone: Start: 12-13-2023 End: 12-13-2023 Bamboo [...] 11-20-2023 ambulatory DO Blu Ball Work Phone: [facility] Work Phone: Start: 11-20-2023 End: 11-20-2023 Patient encounter procedure DO Blu Ball Work Phone: [facility] Work Phone: Start: 10-04-2023 End: 10-04-2023 ambulatory ASHUTOSH Marianna PAUL Not Available Start: 09-12-2023 End: 09-12-2023 ambulatory DO Blu Ball Work Phone: [facility] Work Phone: Start: 09-12-2023 End: 09-12-2023 Patient encounter procedure DO Blu Ball Work Phone: [facility] Work Phone: Start: 09-12-2023 End: 09-12-2023 Patient encounter procedure DO Blu Ball Work Phone: [facility] Start: 09-12-2023 End: 09-12-2023 ambulatory DO Blu Ball Work Phone: [facility] Work Phone: Start: 08-10-2023 End: 08-10-2023 ambulatory [facility] Work Phone: Start: 08-10-2023 End: 08-10-2023 Patient encounter procedure [facility] Work Phone: Start: 07-17-2023 Non-patient / Non-visit [facility] Work Phone: Start: 05-10-2023 End: 05-10-2023 ambulatory [facility] Work Phone: Start: 05-10-2023 End: 05-10-2023 Patient encounter procedure [facility] Work Phone: Start: 04-19-2023 End: 04-19-2023 ambulatory [facility] Work Phone: Start: 04-19-2023 End: 04-19-2023 Patient encounter procedure [facility] Work Phone: Start: 04-11-2023 End: 04-11-2023 ambulatory [facility] Work Phone: Start: 04-11-2023 End: 04-11-2023 Patient encounter procedure [facility] Work Phone: Start: 03-26-2023 Patient encounter procedure [facility]- Start: 02-08-2023 End: 02-08-2023 Patient encounter procedure [facility] Work Phone: Start: 01-30-2023 End: 01-30-2023 ambulatory Blu Velez Other [employer] Other Start: 01-30-2023 Telephone encounter Blu Velez [facility] Start: 12-21-2022 End: 12-21-2022 Subsequent hospital visit by physician Salena Clemons Echo/Vasc Room 2 [facility] Comment on above: Abnormal echocardiog minal; Cerebrovascular accident (CVA), unspecified mechanism (CMS/HCC) Start: 11-16-2022 End: 11-16-2022 ambulatory Blu Velez Other [employer] Other Start: 11-16-2022 Telephone encounter Blu AVILA G [facility] Start: 11-14-2022 End: 11-14-2022 ambulatory Blu Velez Other [employer] Other Start: 11-14-2022 Nursing evaluation o f patient and report Blu Velez [facility] Start: 11-09-2022 Office consultation new/estab patient 60 min Blu Velez Work Phone: [facility] [employer] DO Work Phone: Start: 11-09-2022 Patient encounter procedure Blu Velez Work Phone: [facility] [employer] DO Work Phone: Start: 11-09-2022 ambulatory [facility] Facility :[facility] Start: 11-07-2022 ambulatory [facility] Facility :[facility] Start: 11-03-2022 End: 11-03-2022 ambulatory Blu Velez Other [employer] Other Start: 11-03-2022 Telephone encounter Blu AVILA G [facility] Start: 10-20-2022 End: 10-20-2022 ambulatory Blu Velez Other [employer] Other Start: 10-20-2022 Telephone encounter Blu AVILA G [facility] Start: 09-05-2022 End: 09-05-2022 ambulatory Blu Velez Other [employer] Other Start: 09-05-2022 Office outpatient vi sit 25 minutes Blu Velez [facility] Start: 08-30-2022 End: 08-31-2022 ambulatory Clarisa Ibarra Facility:[facility] Start: 08-30-2022 End: 08-30-2022 Patient encounter procedure Clarisa Ibarra [facility] Start: 02-21-2022 End: 02-21-[address] BLU VELEZ Facility:[facility] Start: 02-07-2022 Adult health examination Gerber meza [place] Other [employer] Other Start: 02-07-2022 Encounter for genera l adult medical examination without abnormal findings Blu Velez Other [employer] Other Start: 01-23-2022 End: 01-24-[address] BLU VELEZ Facility:[facility] Start: 2022 End: 01-12-2022 ambulatory Clarisa Ibarra Facility:[facility] Start: 11-21-2021 End: 11-22-[address] JULIANA SMALLWOOD JR Facility:[facility] Start: 05-27-2021 End: 06-24-2021 ambulatory SHAIKH Tara VIERA Facility:[facility] Start: 04-26-2021 End: 05-26-2021 ambulatory H MAXIMILIANO Facility:[facility] Start: 03-29-2021 End: 04-25-2021 ambulatory H MAXIMILIANO Facility:[facility] Start: 03-01-2021 End: 03-28-2021 ambulatory SEAN AVILA Facility:[facility] Start: 10-29-2020 End: 10-29-2020 Encounter for other preprocedural examination Blu Velez Other [employer] Other Start: 10-29-2020 End: 10-29-2020 Pre-procedure evaluation check Blu Velez Other [employer] Other Start: 08-21-2020 End: 08-22-2020 Evaluation and management of inpatient [facility] Start: 08-21-2020 End: 08-22-2020 Evaluation and management of inpatient Mamadou Adame MD Work Phone: [facility] Comment on above: Hemarthrosis of righ t knee (Primary Dx); S/P total knee arthroplasty, right Start: 08-09-2020 End: 08-10-2020 ambulatory ELISA FERRARO [facility] Start: 08-09-2020 End: 08-10-2020 Subsequent hospital visit by physician Elisa Ferraro MD Work Phone: [facility] Start: 07-15-2020 End: 07-20-2020 ambulatory BLU Mclain [facility] Start: 07-15-2020 End: 07-19-2020 Subsequent hospital visit by physician Tabby Cortes Rm 1 [facility] PRE-ADMIT TESTING Start: 08-13-2017 End: 08-14-2017 Ambulatory CURT CHOWDHURY [facility] Procedures Date Procedure Procedure Detail Performing Clinician Start: 08-18-2024 SKIN / NAIL BIOPSY Leah Sanford APPLICATION TECHNICIAN-HOT BOX CHECKER Work Phone: Start: 05-05-2024 Blu Ball DO [...] on above: Performed By: #### PSAD #### [facility] [address] [place] [address] Dr. Tisha John Start: 08-22-2020 BASIC METABOLIC PANEL W/ REFLEX TO MG FOR LOW K Rachel Mclean APPLICATION TECHNICIAN - HOT BOX CHECKER Work Phone: Start: 08-22-2020 Blood count complete automated Rachel osei Vinay APPLICATION TECHNICIAN - HOT BOX CHECKER Work Phone: Start: 08-21-2020 Blood count complete [...] evangelista MD Work Phone: Start: 12-25-2019 Cystoscopy Lcarisa Lue Start: 11-25-2015 Preoperative cardiovascular examination Blu [...] procedure 03/03/2025 10:10 AM EST Office Visit [facility] [address] [facility] [address] [place] [address] Teo Johnson MD [address] [facility] [address] [place] [address] [facility] Start: 02-12-2025 End: 02-12-2025 Patient encounter procedure 02/12/2025 10:55 AM EST Office Visit [facility] [address] [place] [address] Leah Sanford APRN-HOT BOX CHECKER [address] [place] [address] [facility] Start: 09-25-2024 End: 09-25-2024 Patient encounter procedure 09/25/2024 10:50 AM EDT Procedure Visit [facility] [address] [place] [address] Ashutosh Miller, DPM [address] [address] [facility] Start: 08-18-2024 End: 08-18-2024 Patient encounter procedure 08/18/2024 3:20 PM EDT Office Visit [facility] [address] [place] [address] Leah Sanford, APPLICATION TECHNICIAN-HOT BOX CHECKER [address] [place] [address] Arrived [facility] Comment on above: Arrived Start: 07-17-2024 End: 07-17-2024 Patient encounter procedure 07/17/2024 10:30 AM EDT Procedure Visit [facility] [address] [place] [address] Ashutosh Miller DPM [address] [address] [facility] Start: 07-02-2024 End: 07-02-2025 Alanine aminotransferase [Enzymatic activity/volume] in Serum or Plasma by With P-5'-P Alanine Aminotransferase Lab Routine Coronary artery disease involving walker river coronary artery of walker river heart without angina pectoris Hyperlipidemia, unspecified hyperlipidemia type Expected: 07/02/2024 (Approximate), Expires: 07/02/2025 [facility] Service Area Work Phone: Comment on above: Expected: 07/02/2024 (Approximate), Expi res: 07/02/2025 Start: 07-02-2024 End: 07-02-2025 Aspartate aminotransferase [Enzymatic activity/volume] in Serum or Plasma by With P-5'-P Aspartate Aminotransferase Lab Routine Coronary artery disease involving walker river coronary artery of walk[place] river heart without angina pectoris Hyperlipidemia, unspecified hyperlipidemia type Expected: 07/02/2024 (Approximate), Expires: 07/02/2025 [facility] Work Phone: Comment on above: Expected: 07/02/2024 (Approximate), Expi res: 07/02/2025 Start: 07-02-2024 End: 07-02-2025 Lipid 1996 panel - Serum or Plasma Lipid Panel Lab Routine Coronary artery disease involving walker river coronary artery of walker river heart without angina pectoris Hyperlipidemia, unspecified hyperlipidemia type Expected: 07/02/2024 (Approximate), Expires: 07/02/2025 [facility] Work Phone: Comment on above: Expected: 07/02/2024 (Approximate), Expi res: 07/02/2025 Start: 06-26-2024 COVID-19 Vaccine (4 - Pfizer risk season) COVID-19 Vaccine (4 - Pfizer risk ) [facility] Start: 05-05-2024 [facility] Start: 05-01-2024 End: 05-01-2024 Patient encounter procedure [facility] Comment on above: Pain due to onychomycosis of toenails of both feet (Primary Dx); Xerosis cutis Start: 04-29-2024 End: 04-29-2024 Patient encounter procedure 04/29/2024 7:30 PM EST Appointment [facility] [address] [place] [address] [facility] Start: 04-08-2024 End: 04-08-2024 Patient encounter procedure 04/08/2024 10:30 AM EST Appointment [facility] [address] [place] [id number] [facility] Start: 03-26-2024 End: 03-26-2025 Cardiac stress study Procedure Stress Test Cardiac Services Routine Shortness of breath Expected: 03/26/2024 (Approximate), Expires: 03/26/2025 [facility] Service Area Work Phone: Comment on above: Expected: 03/26/2024 (Approximate), Expi res: 03/26/2025 Start: 03-26-2024 End: 03-26-2025 CT for calcium scoring WO contrast and CTA W contrast IV Heart and coronary arteries CT cardiac scoring wo IV contrast Imaging Routine Shortness of breath Expected: 03/26/2024, Expires: 03/26/2025 [facility] Work Phone: Comment on above: Expected: 03/26/2024, Expires: Start: 02-21-2024 End: 02-21-2024 Patient encounter procedure [facility] Comment on above: Pain due to onychomycosis of toenails of both feet (Primary Dx); Xerosis cutis Start: 12-13-2023 End: 12-13-2023 Patient encounter procedure 12/13/2023 11:30 AM EDT Procedure Visit [facility] [address] [facility] [address] [place] [address] Ashutosh Miller, DPM [address] [facility] [address] [place] [address] Pain due to onychomycosis of toenails of both feet (Primary Dx) [facility] Comment on above: Pain due to onychomycosis of toenails of both feet (Primary Dx) Start: 10-28-2023 Influenza vaccination Influenza Vaccine (#1) [facility] Start: 09-12-2023 Pelvis X-ray XR pelvis 1-2V [facility] Start: 09-12-2023 X-ray of left knee XR knee LT 3V - NOT FOR ER USE [facility] Start: 09-12-2023 XR Knee - left 3 Views [facility] Start: 09-12-2023 XR Pelvis 1 or 2 Views [facility] Start: 01-24-2023 COVID-19 Vaccine (4 - Pfizer series) COVID-19 Vaccine (4 - Pfizer series) [facility] Start: 12-21-2022 ECHO, Provider: [place] MONTGOMERY ULTRASOUND 01,[id number], Status: Pen, Time: 10:45 AM ECHO, Provider: [place] VEGASI ULTRASOUND 01,[id number], Status: Pen, Time: 10:45 AM [facility] 250 DO Work Phone: Start: 10-27-2022 Influenza vaccination Influenza Vaccine (#1) [facility] Start: 08-22-2021 Creatinine measurement Creatinine monitoring [employer] Phone: Start: 08-22-2021 Potassium monitoring Potassium monitoring [employer] Phone: Start: 07-15-2021 Creatinine measurement Creatinine monitoring [employer] Phone: Start: 07-15-2021 Potassium monitoring Potassium monitoring [employer] Phone: Start: 10-27-2020 Influenza vaccination Flu vaccine (Season Ended) [employer] Phone: Start: 08-09-2020 End: 08-09-2020 Admission to same day surgery center 08/09/2020 Surgery IP Unit Elisa Ferraro MD [address] [facility]/ Orthopedic Surgery [place], [place] [id number] RIGHT KNEE TOTAL ARTHROPLASTY- DEPUY [facility] Comment on above: RIGHT KNEE TOTAL ARTHROPLASTY- DEPUY Start: 08-09-2020 End: 08-09-2020 Anesthesia consultation 08/09/2020 Anesthesia Event IP Unit Tatyana Henriquez MD [address] [place] [address] [phone] [facility] Start: 08-09-2020 Subsequent hospital visit by physician 08/09/2020 Hospital Encounter IP Unit Elisa Ferraro MD [address] [facility]/ [place] [address] [phone] [facility] Start: 07-15-2020 Annual Wellness Visit (AWV) Annual Wellness Visit (AWV) [employer] Phone: Start: 01-12-2020 RSV High Risk: (Elderly (60+) or Population) (1 - 1-dose 75+ series) RSV High Risk: (Elderly (60+) or Population) (1 - 1-dose 75+ series) [facility] Start: 07-10-2017 Pneumococcal vaccination Pneumococcal Vaccine (2 of 2 - PCV) [facility] Start: 07-10-2017 Pneumococcal Vaccine: 65+ Years (2 - PCV) Pneumococcal Vaccine: 65+ Years (2 - PCV) [facility] Start: 07-10-2017 Pneumococcal Vaccine: 65+ Years (2 of 2 - PCV) Pneumococcal Vaccine: 65+ Years (2 of 2 - PCV) [facility] Start: 2010 Pneumococcal 65+ years Vaccine (1 of 1 - PPSV23) Pneumococcal 65+ years Vaccine (1 of 1 - PPSV23) [employer] Phone: Start: 1995 Screening for malignant neoplasm of colon Colon cancer screen colonoscopy [employer] Phone: Start: 1995 Shingles Vaccine (1 of 2) Shingles Vaccine (1 of 2) [employer] Phone: Start: 1995 Zoster Vaccines (1 of 2) Zoster Vaccines (1 of 2) [facility] Start: 1967 DTaP/Tdap/Td Vaccines (1 - Tdap) DTaP/Tdap/Td Vaccines (1 - Tdap) [facility] Start: 01-12-1964 DTaP/Tdap/Td vaccine (1 - Tdap) DTaP/Tdap/Td vaccine (1 - Tdap) [employer] Phone: Start: 1963 Diabetes mellitus screening Diabetes Screening [facility] Start: 1963 Hepatitis C screening Hepatitis C Screening [facility] Start: 1955 Lipid panel Lipid screen [employer] Phone: Start: 1945 Abdominal aortic aneurysm screening AAA screen [employer] Phone: Start: 1945 Hepatitis C screening Hepatitis C screen [employer] Phone: Start: 1945 Lipid panel Lipid Panel [facility] Start: 1945 Medicare Annual Wellness Visit Medicare Annual Wellness Visit (AWV) [facility] End: 04-08-2024 Cardiac stress study Procedure [facility] Work Phone: Comment on above: Once for 1 Occurrences starting 04/08/19 until 04/08/2024 Dermatopathology exam Dermatopat hology exam Pathology and Cytology Timed Neoplasm of unspecified behavior of bone, soft tissue, and skin Release Upon Ordering for 1 Occurrences starting 08/18/2024 [facility] [employer] Work Phone: Comment on above: Release Upon Ordering for 1 Occurrences starting 08/18/2024 Fibrin D-dimer [Pres ence] in Platelet poor plasma by Latex agglutination [facility] Oxygen therapy [Mini [facility] Data Set] [facility] Work Phone: Comment on above: Daily until discontinued starting 2020 Daily until disconti nued starting 08/21/2020 Patient Education Know your Meds [facility] Work Phone: Patient referral [facility] Work Phone: PROTIME-INR PROTIME-INR Lab Routine Daily until discontinued starting 08/10/2020, 1 completed [facility] Work Phone: Comment on above: Daily until discontinued starting 2020, 1 completed Spirometry panel Incentive abdiel metry Respiratory Care Routine Every 2hr while awake until discontinued starting 08/09/2020 [employer] Phone: Comment on above: Every 2hr while awake until discontinued starting 08/09/2020 End: 12-21-2022 US Heart Transthoracic [facility] Work Phone: Comment on above: Once for 1 Occurrences starting 12/22/19 until 12/21/2022 End: 08-21-2020 Wound Culture Wound Culture Microbiology Routine One Time for 1 Occurrences starting 08/21/2020 until 08/21/2020 [facility] Work Phone: Comment on above: One Time for 1 Occurrences starting 07/28 until 08/21/2020 End: 08-21-2020 Wound Gram stain Wound Gram stain Microbiology Routine One Time for 1 Occurrences starting 08/21/2020 until 08/21/2020 [facility] Work Phone: Comment on above: One Time for 1 Occurrences starting 07/28 until 08/21/2020 XR Chest 2 Views [facility] Immunizations Immunization Date Immunization Notes Care Provider Fa cili 12-28-2023 influenza, seasonal, injectable Teo Johnson MD Work Phone: [facility] 12-28-2023 SARS-CoV-2, Unspecified Sundar Johnson MD Work Phone: [facility] Work Phone: 12-19-2023 influenza, high dose seasonal, preservative-free [facility] 12-10-2023 COVID-19 (PFIZER) 12Y and older Blu Velez DO Work Phone: [facility] 11-29-2022 Pfizer COVID-19 vaccine, 12 years and older, (30mcg/0.3mL) (Comirnaty) Teo Johnson MD Work Phone: [facility] Work Phone: 11-26-2022 influenza virus vaccine, unspecified formulation Ashutosh Miller [facility] Work Phone: [facility] 11-14-2022 influenza virus vaccine, unspecified formulation [facility] 11-14-2022 influenza, high dose seasonal, preservative-free Blu Velez Other [employer] Other 12-01-2021 influenza virus vaccine, split virus (incl. purified surface antigen) Blu Velez Other [facility] Other 12-01-2021 influenza virus vaccine, unspecified formulation [facility] 11-26-2021 influenza virus vaccine, unspecified formulation Salena 2 [facility] Work Phone: 11-15-2021 SARS-CoV-2 (COVID-19 ) [id number] Clarisa Ibarra [facility] 11-26-2020 influenza virus vaccine, unspecified formulation Teo Johnson MD Work Phone: [facility] Work Phone: 11-22-2020 SARS-CoV-2 (COVID-19 ) mRNA BNT-162b2 vax Clarisa Ibarra [facility] Comment on above: Result Comment: 2021: TPV75 11-12-2020 influenza virus vaccine, split virus (incl. purified surface antigen) Blu Velez Other [facility] [employer] Other 11-12-2020 influenza virus vaccine, unspecified formulation [facility] 04-18-2020 COVID-19, Pfizer, PF , 30mcg/0.3mL Sta 1 [facility] Comment on above: Result Comment: 2021: [id number] 03-28-2020 COVID-19, Pfizer, PF , 30mcg/0.3mL Sta 1 [facility] Comment on above: Result Comment: 2021: TPV75 11-27-2019 influenza virus vaccine, unspecified formulation Teo Johnson MD Work Phone: [facility] Work Phone: 11-10-2019 influenza virus vaccine, split virus (incl. purified surface antigen) Blu Velez Other [employer] Other 11-10-2019 influenza virus vaccine, unspecified formulation [facility] 12-09-2018 influenza virus vaccine, split virus (incl. purified surface antigen) Blu Velez Other [facility] [employer] Other 12-09-2018 influenza virus vaccine, unspecified formulation [facility] 11-13-2017 influenza virus vaccine, split virus (incl. purified surface antigen) Blu Velez Other [facility] [employer] Other 11-13-2017 influenza virus vaccine, unspecified formulation Clarisa Ibarra [facility] 11-13-2017 Seasonal trivalent influenza vaccine, adjuvanted, preservative free Blu Velez Work Phone: [place] [address] DO Work Phone: 01-15-2017 influenza virus vaccine, unspecified formulation Clarisa Luselwyn [facility] 01-15-2017 influenza, injectabl e, quadrivalent, contains preservative Blu Velez Work Phone: [place] [address] DO Work Phone: 12-13-2016 influenza virus vaccine, split virus (incl. purified surface antigen) Blu Velez Other [facility] [employer] Other 12-13-2016 influenza virus vaccine, unspecified formulation [facility] 07-10-2016 pneumococcal polysaccharide vaccine, 23 valent Clarisakavya Ibarra [facility] 01-20-2015 pneumococcal conjuga te vaccine, 13 valent Blu Velez Other [facility] 01-20-2015 pneumococcal Conjuga te, unspecified formulation; Translations: [Need for prophylactic vaccination against Streptococcus pneumoniae (pneumococcus)] Blu Velez Other [facility] [employer] Other 12-10-2014 influenza virus vaccine, split virus (incl. purified surface antigen) Blu Velez Other [employer] Other 12-10-2014 influenza virus vaccine, unspecified formulation [facility] Payers Date Payer Category Payer Self-pay [id number] 2023 Private Health Insurance [employer] [id number] 2022 Medicare supplementa l policy (as second payer) [employer] [id number] 2022 Unknown 2018 Medicare [id number] 2009 Medicare [id number]. 1.13.647. [id number] 1959 Medicare [id number] [id number]. 2.7.3.117989.315 1959 Private Health Insurance [facility] [id number] 1.2.840.204422.1.13.239. 2.7.3.476223.315 1945 Unknown [id number] 2.16.840.1.064630.3.579. 2.177 1945 Unknown [id number] 2.16.840.1.552924.3.579. 2.177 1945 Unknown [id number] 2.16.840.1.108566.3.579. 2.177 1945 Unknown [id number] 2.16.840.1.749582.3.579. 2.593 1945 Unknown [id number] 2.16.840.1.514549.3.579. 2.593 1945 Unknown [id number] 2.16.840.1.518537.3.579. 2.593 1945 Unknown [id number] 2.16.840.1.949240.3.579. 2.593 1945 Unknown [id number] 2.16.840.1.552049.3.579. 2.593 1945 Unknown [id number] 2.16.840.1.969579.3.579. 2.593 1945 Unknown [id number] 2.16.840.1.384639.3.579. 2.593 1945 Unknown [id number] 2.16.840.1.695854.3.579. 2.727 1945 Unknown [id number] 2.16.840.1.210982.3.579. 2.727 1945 Unknown [id number] 2.16.840.1.791287.3.579. 2.356 1945 Unknown [id number] 2.16.840.1.530274.3.579. 2.356 1945 Unknown [id number] 2.16.840.1.794427.3.579. 2.1246 1945 Unknown [id number] 2.16.840.1.962412.3.579. 2.1246 1945 Unknown [id number] 2.16.840.1.240708.3.579. 2.1244 1945 Unknown [id number] 2.16.840.1.493939.3.579. 2.1244 1945 Unknown [id number] 2.16.840.1.764907.3.579. 2.1259 1945 Unknown [id number] 2.16.840.1.158519.3.579. 2.1258 1945 Unknown [id number] 2.16.840.1.745703.3.579. 2.1259 1945 Unknown [id number] 2.16.840.1.844252.3.579. 2.1259 1945 Unknown [id number] 2.16.840.1.397481.3.579. 2.1259 1945 Unknown [id number] 2.16.840.1.223438.3.579. 2.1259 Unknown [id number] 2.16.840.1.048775.3.579. 2.531 Unknown [id number] 2.16.840.1.601462.3.579. 2.531 Unknown [id number] 2.16840.1.940136.3.579. 2.531 Social History Date Type Detail Facility Start: 07-15-2020 End: 03-01-2023 Tobacco smoking status NHIS Former smoker [facility] End: 02-26-1965 History of tobacco use Current smoker [facility] Start: 07-15-2020 End: 03-01-2023 Tobacco use and exposure Never used [facility] Start: 07-15-2020 End: 08-18-2024 Alcohol intake Current drinker of alcohol (finding) [facility] Work Phone: Start: 07-15-2020 End: 08-18-2024 Alcohol intake [facility] Work Phone: Comment on above: 5-6 beers daily; 2-3 servings a day; quit 1964; Start: 1945 Sex Assigned At Not on file [employer] Work Phone: Start: 12-11-2022 End: 07-02-2024 Exposure to SARS-CoV-2 (event) Not sure [facility] Tobacco smoking status Never [facility] Start: 03-01-2023 End: 08-18-2024 Sex Assigned At Male [facility] Tobacco smoking stat [facility] Tobacco smoking consumption unknown [facility] Work Phone: Start: 02-08-2023 End: 02-08-2023 Tobacco smoking status KSIS Never smoked tobacco (finding) [facility] Start: 1945 Sex Assigned At Male [facility] End: 02-27-1964 History of tobacco use Cigarette [...] Start: 05-02-2024 End: 08-04-2024 Sex Male (finding) [facility] Start: 07-02-2024 Alcohol Comment 3-4 beers daily [facility] Work Phone: Medical Equipment Procedure Code Equipment Code Equipment Origin al Text Equipment Identifier Dates Upcharge Knee Primary Attune Aox Insert Depuy Synthes [id number] Start: 08-09-2020 Cement Bne 40gm Full Dose Pmma W/O Antibio Hi Visc N Radpq [id number] Start: 08-09-2020 Component Pat [id number] Knee Poly Anuel Medialized Nayla Attune [id number] [...] 08-30-2022 Functional Status N/A [facility] Clinical Notes 07-15-2020 to 08-18-2024 Leah Sanford [...] BONE, SOFT TISSUE, AND SKIN Right Mid [place] Milmay papule Lesion biopsy Type of biopsy: tangential [...] month skin check documented in this encounter [facility] 07-02-2024 History of Present illness Narrative Chief [...] lab data from May 2024 at the [facility] revealed LDL cholesterol of 135 mg/dL he [...] needed Assessment/Plan 1. Coronary artery disease involving [place] coronary artery of [place] heart without angina pectoris Alanine Aminotransferase Aspartate Aminotransferase Lipid Panel rosuvastatin (Crestor) 20 mg tablet Follow Up In Cardiology Alanine Aminotransferase Aspartate Aminotransferase Lipid Panel 2. Hypertension, unspecified type 3. Hyperlipidemia, unspecified hyperlipidemia type Alanine Aminotransferase Aspartate Aminotransferase Lipid Panel rosuvastatin (Crestor) 20 mg tablet Alanine Aminotransferase Aspartate Aminotransferase Lipid Panel 4. PFO (patent foramen ovale) ([facility]) 5. History of DVT (deep vein [...] discussion and plan. documented in this encounter [facility] Work Phone: 07-02-2024 Instructions Ankita Mata LPN [...] up 9 months documented in this encounter [facility] Work Phone: 05-05-2024 Discharge summary [facility] enter 05-05-2024 Procedure note [facility] enter 05-01-2024 History of Present illness Narrative [...] deep vein thrombosis of distal leg, left ([facility]) 2010 BPH (benign prostatic hyperplasia) Colon polyp ETD (Eustachian tube dysfunction), left GERD (gastroesophageal reflux disease) HLD (hyperlipidemia) ([facility]) HTN (hypertension) ([facility]) Hx-TIA (transient ischemic attack) Lumbar spondylosis [...] Ashutosh Miller DPM documented in this encounter [facility] 03-26-2024 History of Present illness Narrative Subjective [...] from previous visit. 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 Has had no previous cardiac evaluation for [...] daily in the evening., Disp: , Rfl: [id number] ORAL, Take 1 tablet by mouth early [...] In Cardiology 2. PFO (patent foramen ovale) ([facility]) Follow Up In Cardiology 3. Shortness [...] discussion and plan. documented in this encounter [facility] Work Phone: 03-26-2024 Instructions Ankita Mata LPN [...] medications Follow up documented in this encounter [facility] Work Phone: 02-21-2024 History of Present illness [...] deep vein thrombosis of distal leg, left ([facility]) 2010 BPH (benign prostatic hyperplasia) Colon polyp ETD (Eustachian tube dysfunction), left GERD (gastroesophageal reflux disease) HLD (hyperlipidemia) ([facility]) HTN (hypertension) ([facility]) Hx-TIA (transient ischemic attack) Lumbar spondylosis [...] Ashutosh Miller DPM documented in this encounter [facility] 02-13-2024 Evaluation note Diagnosis Onset Date Resolution [...] 1:19pm [facility] Work Phone: 1(817) 189-933210-17-2024 History of Present illness Narrative* Ashutosh Miller, [...] deep vein thrombosis of distal leg, left ([facility]) 2010 BPH (benign prostatic hyperplasia) Colon polyp ETD (Eustachian tube dysfunction), left GERD (gastroesophageal reflux disease) HLD (hyperlipidemia) ([facility]) HTN (hypertension) ([facility]) Hx-TIA (transient ischemic attack) Lumbar spondylosis [...] condition. 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 Follow these instructions at home: Take hnrt-atk-dafpzsv and prescription medicines only as told by [...] provider. Document Revised: 08/31/2021 Document Reviewed: 08/31/2021 [employer] Patient Education 2022 [employer]. Follow Up Care 2022 12:11:39 With:Fred TABARES, ALVARO Brizuela, URO Address: When: Unknown Comments:FELIZ [facility] 06-27-2021 History of Present illness Narrative* Lawanda [...] from the original note were not included. [facility] Office: [phone] Felton Molina DO, Saleem De Jesus DO, [...] CNP, Arina Faustin CNP, CHIDI Montes,Kanu Gaxiola, HOT BOX CHECKER, Samantha Holden, HOT BOX CHECKER, Brianna Clark, HOT BOX CHECKER, Sridevi Mayo, HOT BOX CHECKER, Curt Arthur, HOT BOX CHECKER, Ronald Kaiser PA-C, Lucy Romero, MELVIN, Mary Ann Hernandez, HOT BOX CHECKER, Tri Marshall, HOT BOX CHECKER, Joanna Giordano, HOT BOX CHECKER, David Austin, HOT BOX CHECKER, Kenisha Lund, HOT BOX CHECKER, Martha Zeng, HOT BOX CHECKER [facility] IN-PATIENT SERVICE [facility] Progress Note 08/22/2020 11:53 AM Name: Yanelis Noriega Acct: [id number] Room: IP Day: 1 Admit Date: 08/21/2020 [...] No results for input(s): PROT, LABALBU, LABA1C, J9JRCLE, D9UBLHL, FT4, TSH, AST, ALT, LDH, GGT, ALKPHOS, LABGGT, BILITOT, BILIDIR, AMMONIA, AMYLASE, LIPASE, LACTATE, CHOL, HDL, LDLCHOLESTEROL, CHOLHDLRATIO, TRIG, VLDL, NCD05ZX, PHENYTOIN, PHENYF, URICACID, POCGLU in the last 72 hours. ABG:No results found for: POCPH, PHART, PH, POCPCO2, NBL9EQA, PCO2, POCPO2, PO2ART, PO2, POCHCO3, PEA3NYB, HCO3, NBEA, PBEA, BEART, BE, THGBART, THB, KJO2MZK, WDKQ4GMO, B4PQHVTO, O2SAT, FIO2 No results found for: SPECIAL [...] with evidence of patent foramen ovale with yeqgt-mb-lrpn shunt. 4. Monitoring control blood pressure 5. Activity as tolerated 6. Discharge planning Arden Maharaj DO 08/22/2020 11:53 AM * Elisa Ferraro MD - 08/22/2020 11:15 AM EDT Ortho HD #2 Seen and evaluated with Dr. Maharaj present for discussion Patient had RTKR about 10 days ago, was seen in [place] [facility] [place] evening after very aggressive PTsession [...] with significant increase in pain. went to [facility] via squad. pt states he received 2 [...] Assistance: Needs assistance Homemaking Responsibilities: Yes Active Senior Writer: Yes Mode of Transportation: SUV Occupation: Retired [...] Reji Dailey, PT * Luis M Jewell [facility] - 08/21/2020 2:08 PM EDT Transitions of Care Pharmacy Service Medication Review The patient's list of current home medications has been reviewed and updated. Source(s) of information: Patient/Patient's /Sure Script/Patient warfarin regimen paper Please feel free to call with any questions about this encounter. Thank you. Luis M Jewell [facility] Transitions of Care Pharmacy Service Prior to [...] 2019 per stretcher in stable condition from [facility] Oriented to room and surroundings [...] view & ask questions. [facility] [place] Phone: 1(840) 259-493406-27-2021 Hospital course Narrative* Elisa Ferraro MD - 08/22/2020 11:35 [place] [address] DISCHARGE SUMMARY Patient: Yanelis Noriega Reg#: [id number] Date: 1945 Date of Admission & Surgery: 08/21/2020 Date of Discharge: 08/22/2020 Attending Surgeon: Elisa Ferraro M.D. PCP: Blu Velez, History and Hospital Course The patient has had severe pain and swelling in the knee, was evaluated in ED and admitted for Ortho eval. Medical evaluation and co-management is provided by the design center consultant medical staff, Dr. Maharaj,at this time. [...] 2 units of plasma in ED in [facility]; at this time his hemoglobin is [...] Complications: None Disposition: [facility]: 1(933) 320-300106-15-2021 History of Present illness Narrative* Stella Jacobs [...] maintain strength to assist with self care. 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 terminal supervisor goals terminal supervisor goal 1: Pt to be I with sugical precuations, recommendations for AE/DME and fall prevention/EC/WS education with use of handouts as needed. Patient Goals Patient goals : To go home! Therapy Time Individual Concurrent Group Co-treatment Time In [facility] Time Out 1647 Minutes 49 tx time: [...] AM EDT Pt has percocet escribed to [facility] in [place], [place]. Pt will resume home medication coumadin [...] platelets documented in this [facility] [employer] Phone: 1(790) 208-839706-15-2021 Hospital course Narrative* Elisa Ferraro MD - 08/10/2020 11:12 [place] [address] DISCHARGE SUMMARY Patient: Yanelis Noriega Reg#: [id number] Date: 1945 Date of Admission & Surgery: 08/09/2020 Date of Discharge: 08/10/2020 Attending Surgeon: Elisa Ferraro M.D. PCP: Blu Velez DO History and Hospital Course The patient has had severe pain and arthritis of the knee, unresponsive to conservative treatment and is now admitted for joint replacement. Medical evaluation and postoperative co-management is provided by the design center consultant medical staff. The patient underwent knee [...] Complications: None Disposition: Home documented in this [facility] [place] Phone: 1(775) 694-248706-15-2021 Hospital Discharge instructions* Discharge Instr - Diet* [...] most local grocery stores, pharmacies, and chain Diabetica-stores. If you have any questions about your diet or nutrition, call the hospital and ask for the dietitian. * Additional Instructions* Naun Byers RN - 08/09/2020 Images from the original note were not included. ANY ORTHOPEDIC QUESTIONS OR ANY OTHER CONCERNS YOU MAY CALL THE ORTHOPEDIC COORDINATOR: NAUN BYERS RN, BSN [phone] [email or web address] YOU MAY ALSO MESSAGE ME ON GET [...] orthopedic appointment with surgeon Discharge instructions video: [email or web address] Keep it Clean Post-Operative Home instructions These instructions are to help you have the best possible recovery after your surgical procedure. [facility] is here to support you. If you have questions, call [phone] Sunday through Sunday from 7:30AM to 8:30PM to speak to a nurse. If you need to speak to someone outside of these hours, call your physician. Incision Do s and Don ts Do wash hands before and after dressing changes or when you have had any contact with your incision. Use hand weld lay out worker or antibacterial soap. Do keep your incision [...] Care Everywhere. * Hip Replacement (Anterior): Post-op ([place]) * Stroke ([place]) * Constipation ([place]) * DVT (Deep Vein Thrombosis): General Info ([place]) * acetaminophen and oxycodone ([place]) * warfarin (oral) ([place]) * docusate (oral/rectal) ([place]) * Enoxaparin (Lovenox) ([place]) documented in [facility] Phone: 1(640) 375-896605-20-2021 History of Present illness Narrative* Naun Byers RN - 07/15/2020 9:30 AM EDT [employer] [facility] Joint Replacement Pre-surgical Assessment Scheduled Surgery Date: 08/09/2020 Surgery Time: 1045 Surgeon: JASMINE Procedure: right Total Knee Primary Insurance Coverage MEDICARE PART A&B, 2- [facility] SUPP Pre-op class attended YES 07/15/2020. PCP: [...] done History of transient ischemic attack (TIA) [phone] found on a brain scan at [facility] (perpatient) Hx of blood clots 2010 left leg Hyperlipidemia Hypertension Snores Smoking history: none Alcohol history: Never drinks Concerns prior to surgery: PT HAS A FWW. * Kirstin Singer RN - 07/15/2020 9:30 AM EDT Patient watched the Understanding a Nerve Block video during the PAT visit today. documented in this encounterRentlord Phone: chief complaint Narrative - ReportedYANELIS NORIEGA is being seen for an initial evaluation of Laureano evaluation.[facility] Judy 250 DO Work Phone: Chiur complaint Narrative - Reported* YANELIS NORIEGA is [...] neurological symptoms. He had transthoracic echocardiogram in [facility] which she read possible PFO. There [...] I did review the echo report from [facility] and the other imaging studies. * [...] to lose weight with diet and exercise [facility] 250 DO Work Phone: Discharge summary Author Teo Johnson [facility] Note Date/Time May 05, 2024 4:1 5pm [facility] [address] [place] [address] Discharge Summary Signed Patient: Yanelis Noriega MR#: [id number] : 1945 Acct:[id number] Age/Sex: 79 / M Adm Date: 5 Loc: Room: Attending Dr: Teo Johnson MD Copies to: DO Teo Hill MD, [facility]~ Providers Date of Discharge: 05/05/24 [...] Low-Cholesterol Additional Instructions: DISCHARGE INSTRUCTIONS FOR CARDIAC DISABILITY EXAMINER PROCEDURE: Heart Cath The following instructions have [...] cold, numb, blue or white, call the manager strategic sourcing immediately. 4. ACTIVITY: You are advised to [...] bottle, follow the instructions on the bottle. [facility] is not responsible for incorrect prescription information [...] 05/05/24 09:28 Documented By: Teo Johnson MD, [facility] 5 1217 Signed By: <Electronically signed by [facility] Teo Johnson> 05/05/24 1217 [facility] Work Phone: Evaluation + Plan note No data available for this section [facility] evaluation note* Diagnosis Primary osteoarthritis of right knee- Primary Primary localized osteoarthrosis, lower leg S/P total knee arthroplasty, right History of DVT (deep vein thrombosis) Personal history of venous thrombosis and embolism documented in this encounter [employer] Phone: evaluation note* Diagnosis Hemarthrosis of right [...] use of anticoagulants documented in this encounter [employer] Phone: evalmzraps noteNo [facility] [employer] Other Evaluation note* Diagnosis Abnormal echocardiogram Nonspecific (abnormal) findings on radiological and other examination of other intrathoracic organs Cerebrovascular accident (CVA), unspecified mechanism (CMS/HCC) documented in this encounter [facility] Work Phone: Evaluation note* Diagnosis Abnormal echocardiogram Nonspecific (abnormal) findings on radiological and other examination of other intrathoracic organs Cerebrovascular accident (CVA), unspecified mechanism (CMS/HCC) documented in this encounter [facility] Work Phone: Evaluation noteNo assessment information available [facility] Work Phone: Evaluation note* Diagnosis Onset Date Resolution Status Chronic obstructive pulmonar y disease with (acute) exacerbation noneactive Acute bronchitis due to other specified organisms noneactive [facility] Work Phone: Evaluation note* Diagnosis Onset Date Resolution Status Chronic obstructive pulmonar y disease with (acute) exacerbation noneactive Acute bronchitis due to other specified organisms noneactive Acute bronchitis due to other specified organisms noneactive Asthma noneactive Chronic obstructive pulmonar y disease with (acute) lower respiratory infection noneactive Acute exacerbation of chroni c obstructive airways disease noneactive [facility] Work Phone: Evaluation note* Diagnosis Onset Date Resolution Status Cerebral atherosclerosis acu te Hx of TIA (transient ischemic attack) and stroke acute Hypercholesteremia acute PFO (patent foramen ovale) a cute Primary hypertension acute Simple chronic bronchitis ac mark [facility] Work Phone: Evaluation note* Diagnosis Onset Date Resolution Status Cerebral atherosclerosis acu te Hx of TIA (transient ischemic attack) and stroke acute Hypercholesteremia acute PFO (patent foramen ovale) a cute Primary hypertension acute Simple chronic bronchitis ac mark History of left knee replacement acute Painful total knee replacement, left acute [facility] Work Phone: Evaluation note* Diagnosis Onset Date Resolution Status History of left knee replacement acute Painful total knee replacement, left acute [facility] Work Phone: Evaluation note* Diagnosis Pain due to onychomycosis of toenails of both feet- Primary documented in this encounter [facility]* Diagnosis Onset Date Resolution Status Hypercoagulable state acute Paronychia acute Toe pain, left acute [facility] Work Phone: Evaluation note* Diagnosis Pain due to onychomycosis of toenails of both feet- Primary Xerosis cutis Other specified disease of sebaceous glands documented in this encounter [facility] Healthcare[facility] note* Diagnosis Primary hypertension- Primary Unspecified essential hypertension PFO (patent foramen ovale) ([facility]) Ostium secundum type atrial septal defect Shortness of breath High risk medication use History of DVT (deep vein thrombosis) Dyslipidemia Other and unspecified hyperlipidemia Overweight BMI 27.0-27.9,adult Former smoker Personal history of tobacco use, presenting hazards to health documented in this encounter [facility] Work Phone: Evaluation note* Diagnosis Shortness of breath documented in this encounter [facility] Work Phone: Evaluation note* Diagnosis Shortness of breath documented in this encounter [facility] Work Phone: Evaluation note* Diagnosis Coronary artery disease involving walk[place] coronary artery of [place] heart without angina pectoris Hypertension, unspecified type Hyperlipidemia, unspecified hyperlipidemia type PFO (patent foramen ovale) ([facility]) Ostium secundum type atrial septal defect History of DVT (deep vein thrombosis) High risk medication use BMI 27.0-27.9,adult Former smoker Personal history of tobacco use, presenting hazards to health documented in this encounter [facility] Work Phone: Evaluation note* Diagnosis [...] sleep apnea acute Jaxon e 2024 1:14pm [facility] Work Phone: Evaluation note* Diagnosis Neoplasm of [...] History hernia Hospitalization History SEE SURGICAL HX cube19 Other Hospital Discharge instructions* Attachments The following attachments cannot be sent through Care Everywhere. * TKR (Total Knee Replacement): Post-op ([place]) * apixaban ([place]) documented in this encounterCircuitLab Work Phone: Hospital Discharge instructions Additional Instructions DISCHARGE INSTRUCTIONS FOR CARDIAC DISABILITY EXAMINER PROCEDURE: Heart Cath The following instructions have [...] cold, numb, blue or white, call the manager strategic sourcing immediately. 4. ACTIVITY: You are advised to [...] bottle, follow the instructions on the bottle. [facility] is not responsible for incorrect prescription information provided by the patient during their visit. Do not stop your medications without consulting your health care provider. Please take the list with you to your next doctor's appointment.[facility] Work Phone: Progress note No data available for this section [facility] reason for referral (narrative)* Reason Referral for possibl e ASD with history of cerebral infarction and lower extremity DVT. Diagnosis 1 Primary hypertension (I10) Diagnosis 2 Atherosclerotic cere brovascular disease (I67.2) Referral Organization [facility] Clovis almaguer Referring Provider First Name Blu Referring Provider Last Name Clovis Referring Provider Specialty Internal Me dicine Referred Organization [facility] Referred Provider Cristofer Gómez Referred Address [address],[place], [place],[address] Referred Provider Specialty Cardiology Referral Priority Routine [...] am, Carotid US, MRA brain and labs cube19 Other Reason for visit Narrative* Cardiac Stress Testing (Routine) - Authorized Specialty Diagnoses / Procedures Referred By Contac t Referred To Contact Cardiology Diagnoses Shortness of breath Procedures Stress Test IA CV STRS TST XERS&/OR RX CONT ECG TRCG ONLY Teo Johnson MD [address] [place] [address] 2, David [address] [place] [address] Phone: tel: fax: Referral ID Status Reason Start Date Expiration Date V isits Requested Visits Authorized [id number] Authorized 03/26/2024 03/26/2025 1 1 [facility] Work Phone: Reason for visit Narrative* Imaging (Routine) - Authorized Specialty Diagnoses / Procedures Referred By Contduncan t Referred To Contact Radiology Diagnoses Shortness of breath Procedures CT cardiac scoring wo IV contrast Teo Johnson MD [address] [facility] 2, [address] [place] [address] Phone: tel: fax: Referral ID Status Reason Start Date Expiration Date Visits Requested Visits Authorized [id number] Authorized Perform Procedure 03/26/2024 03/26/2025 1 1 [facility] Work Phone: Summary Purpose Family History No [...] mechanism (CMS/HCC) Procedures Transthoracic Echo (TTE) Limited IA ECHO TRANSTHORC R-T 2D W/WO M-MODE REC F-UP/LMTD IA DOP ECHOCARD COLOR FLOW VELOCITY MAPPING IA DOP ECHOCARD PULSE WAVE W/SPECTRAL F-UP/LMTD STD Teo Johnson MD [address] [facility] 2, [address] [address] Referral ID Status Reason Start Date Expiration Date Visits Requested Visits Authorized [id number] Authorized Perform Procedure 3 12/14/2023 1 1 Chief Complaint and Reason for Visit Chief Complaint Wellness Sore Throat, Congestion- [phone] Chief Complaint Wellness Sore Throat, Congestion- [phone] Wheezy, Congested-COVID Negative Reason for Visit Chronic obstructive pulmonary disease with (acute) exacerbation Acute bronchitis due to other specified organisms Chief Complaint Sore Throat, Congest ion- [phone] Wheezy, Congested-COVID Negative Sick- Wheezy Reason for [...] section and content) DATE CREATED AUTHOR 08/14/2017 [facility] DATE CREATED AUTHOR AUTHOR'S ORGANIZ ATION 08/22/2020 [facility] DATE CREATED AUTHOR AUTHOR'S ORGANIZ ATION 02/24/2022 [facility] DATE CREATED AUTHOR AUTHOR'S ORGANIZ ATION 08/31/2022 [facility] DATE CREATED AUTHOR AUTHOR'S ORGANIZ ATION 11/10/2022 [facility] DATE CREATED AUTHOR AUTHOR'S ORGANIZ ATION 11/12/2022 [employer] DATE CREATED AUTHOR AUTHOR'S ORGANIZ ATION 05/05/2024 [facility] DATE CREATED AUTHOR AUTHOR'S ORGANIZ ATION 05/28/2024 [facility] DATE CREATED AUTHOR AUTHOR'S ORGANIZ ATION 07/04/2024 [facility] DATE CREATED AUTHOR AUTHOR'S ORGANIZ ATION 08/19/2024 [facility] EPIC Reason for Visit (unrecogniz ed section and content) Status Reason Specialty Diagnoses / Procedures Referre d By Contact Referred To Contact Diagnoses Osteoarthritis of right knee DX RIGHT KNEE OA Procedures IA TOTAL KNEE ARTHROPLASTY RIGHT KNEE TOTAL ARTHROPLASTY- Elisa Zhang MD [address] [facility]/ [place] [address] [facility] Specialty Diagnoses / Procedures Referred By Contac t Referred To Contact Cardiology Diagnoses Abnormal echocardiogram Cerebrovascular accident (CVA), unspecified mechanism (CMS/HCC) Procedures Transthoracic Echo (TTE) Limited IA ECHO TRANSTHORC R-T 2D W/WO M-MODE REC F-UP/LMTD IA DOP ECHOCARD COLOR FLOW VELOCITY MAPPING IA DOP ECHOCARD PULSE WAVE W/SPECTRAL F-UP/LMTD STD Teo Johnson MD [address] [place] [address] 2, [address] [address] Referral ID Status Reason Start Date Expiration Date Visits Requested Visits Authorized [id number] Authorized Perform Procedure 3 12/14/2023 1 1 Reason Comments Toenail Care Non DM Nails Reason Comments Toenail Care Non dm nail care Reason Comments Annual Exam Specialty Diagnoses / Procedures Referred By Contac t Referred To Contact Cardiology Diagnoses PFO (patent foramen ovale) ([facility]) Abnormal echocardiogram Procedures Follow Up In Cardiology Teo Johnson MD [address] [facility] [address], [address] [address] Phone: tel: fax: Teo Johnson MD [address] [place] [address] 2, [address] [address] Phone: tel: fax: Referral ID Status Reason Start Date Expiration Date V isits Requested Visits Authorized [id number] Authorized 03/26/2023 03/25/2024 1 1 Reason Comments [...] (Given - Provider: Darío Yancey APRN - [employer]UST[employer]) docusate sodium (COLACE) capsule 100 mg 100 [...] (day of surgery) 1003 (Given - Provider: Eguenie Avalos RN) sodium chloride flush 0.9 % [...] to tolerate oral tablet. K Lab R [facility] ement Action 3.1 to 3.5 40 [...] May 10, 2023 End: May 10, 2023 Antenna Rigger Relationship Specialty Start Date End Date Blu Velez DO [address] [place] [address] PCP - General 11/09/22 Antenna Rigger Relationship Specialty Start Date End Date Blu [...] Attending Provider Active Start: September 12, 2023 Antenna Rigger Relationship Specialty Start Date End Date Blu Velez MD [address] [place] [id number] PCP - General Internal Medicine 03/01/23 Antenna Rigger Relationship Specialty Start Date End Date Blu Velez MD [address] [place] [address] PCP - General Internal Medicine 03/01/23 Team Status: Inactive Member Role Status Dates Blu Velez DO Primary Care Provide r, Attending Provider Active Start: December 19, 2023 End: December 19, 2023 Antenna Rigger Relationship Specialty Start Date End Date Blu Velez MD [address] [place] [address] PCP - General Internal Medicine 03/01/23 Antenna Rigger Relationship Specialty Start Date End Date Blu Velez MD [address] [place] [address] PCP - General Internal Medicine 03/01/23 Antenna Rigger Relationship Specialty Start Date End Date Blu Velez DO [address] [place] [address] PCP - General Internal Medicine 03/26/24 Antenna Rigger Relationship Specialty Start Date End Date Blu Velez DO [address] [place] [address] PCP - General Internal Medicine 03/26/24 Antenna Rigger Relationship Specialty Start Date End Date Blu Velez DO [address] [place] [address] PCP - General Internal Medicine 03/26/24 Team Status: Inactive Member Role Status Dates Blu Velez DO Primary Care Provider Active Start: May 05, 2024 End: May 05, 2024 Teo Johnson MD Attending Provider Active St art: May 05, 2024 End: May 05, 2024 Antenna Rigger Relationship Specialty Start Date End Date Blu Velez DO [address] [place] [address] PCP - General Internal Medicine 03/26/24 Antenna Rigger Relationship Specialty Start Date End Date Blu Velez DO [address] [place] [address] PCP - General Internal Medicine 03/01/23 Antenna Rigger Relationship Specialty Start Date End Date Blu Velez DO [address] [place] [address] PCP - General Internal Medicine [...] BE BASED ON THE PRIMARY CLINICAL RECORDS. [employer] [facility]. provides no warranty or guarantee of the accuracy or completeness of information in this document.
== END 2024-09-23 20:56 | disposition home or self-care (01) ==
LOC: SLEEP 20:55
PROVIDERS: PCP Internal Medicine; Visit Provider Internal Medicine
DX: G47.33 Obstructive sleep apnea (adult) (pediatric) (principal)
CPT/HCPCS: 95811

== ENCOUNTER 2024-12-24 11:26 | Outpatient (OUT) | payer MEDICARE, SELFPAY ==
--- OUTSIDE RECORDS SUMMARY | 2024-12-22 07:10 | XMS_ITS | Continuity of Care Document ---
Author Organization [facility] Address [address] [place] [address] Phone Care Team Providers Care Spanish Medical Interpreter Name Role Phone Blu Humphrey DO Primary Care Provider Teo Ragsdale MD Attending Provider [phone] Karlee Hill DO Attending Provider [phone] Blu Humphrey DO Attending Provider Care Teams Patient Care Team Team Status: Active Member Role/Relationship Status Dates Blu Humphrey DO Primary Care Provider Active Visit Care Team Team Status: Active Member Role/Relationship Status Dates lBu Humphrey DO Primary Care Provider Active Start: September 23, 2024 Vijay Rivera ProviderActiveStart: September 23, 2024 Visit Care Team Team Status: Active Member Role/Relationship Status Dates Blu Humphrey DO Primary Care Provider Active Start: September 23, 2024 Lazara Hassan ProviderActiveStart: September 23, 2024 Visit Care Team Team Status: Inactive Member Role/Relationship Status Dates Blu Humphrey DO Primary Care Provider Active Start: December 09, 2024 End: December 09Lazara Thomas ProviderActiveStart: December 09, 2024 End: December 09, 2024 Patient Care Team Team Status: Inactive Member Role/Relationship Status Dates Blu Humphrey DO Primary Care Provider Active Start: December 22, 2024 End: December 22enmersusana Humphrey , DOAttending ProviderActiveStart: December 22, 2024 End: December 22, 2024 Chief Complaint and Reason for Visit Chief Complaint Admit Date Flu Shot December 09, 2024 3 :42pm Ear infection December 22, 2024 1 0:36am Allergies, Adverse Reactions, Alerts Allergen Type Severity Reaction Last Updated Verified Status Iodinated Contrast Media Allergy Unknown Rash, itching December 22, 2024 10:42am Yes Active iodine Allergy Unknown Unknown Reaction December 22, 2024 10:42am Yes Active simvastatin Allergy Unknown pain December 22, 2024 10:42am Yes Active Sulfa (Sulfonamide Antibiotics) Allergy Unknown Rash December 22, 2024 10:42am Yes Active trimethoprim Allergy Unknown Rash November 10:42am Yes Active Social History Smoking Status Status Start Date End Date Date of Observa tion Ex-smoker (finding) May 05, 2024 9:06am Observation Status Observation Response Date of Response Legal Sex Male (finding) [facility] 1944 Family History Relationship Condition Age at Onset Recorded Date/T es father Dementia Unknown DeceasedUnknownmotherDiabetes mellitusUnknownMyasthenia gravisUnknownDeceased UnknownCerebrovascular accident (CVA)UnknownsisterMalignant neoplasm of colon UnknownbrotherBlood disorderUnknownbrotherMyocardial infarctionUnknownbrother UnknownHistory of heart valve replacementUnknown Problems Active Problems Problem Diagnosis/Recorded Date Onset Date Status C omments Toe pain, left November 20, 2023 2:17pm Unknown Acti ve ParonychiaSeptember 2023 2:16pmUnknownActiveMedicare annual wellness [facility] 7:52amUnknownActiveOSA (obstructive sleep apnea)September 04, 2024 8:58pmUnknownActiveAHI 18, SpO2 83%Screening PSA (prostate specific antigen)January 17, 2024 2:40pmUnknownActivePSA: 0.74 - 01/2023, 0.75 - 12/2023Simple chronic bronchitisFebruary 2023 3:03pmUnknownActive Cerebral atherosclerosisFebruary 2023 3:03pmUnknownActive HypercholesteremiaFebruary 2023 3:03pmUnknownActiveOverweightJune 2024 2:16pmUnknownActivePrimary hypertensionFebruary 2023 3:03pmUnknown ActivePFO (patent foramen ovale)April 11, 2023 3:03pmUnknownActiveHx of TIA (transient ischemic attack) and strokeFebruary 2023 3:03pmUnknownActive Anticoagulated on CoumadinJune 2024 2:17pmUnknownActiveInactive/Resolved Problems Problem Diagnosis/Recorded Date Onset Date Status C omments Painful total knee replaceme nt, left September 12, 2023 10:57am Unknown Resolved History of left knee replacementJuly 2023 2:35pmUnknownResolved Medications Medication Status Dose Units Route Directions Qty Days Refills S tart Date Stop Date End Date Reason(s) Instructions Adherence Albuterol Sulfate 2.5 mg /3 mL (0.083 %) solution for nebulization Discontinued 2.5 MG INHALATION Every 6 hours as needed for shortness of breath or wheezing 75 30 0 April 19, 2023 3:32pm May 10, 2023 9:15amSimple chronic bronchitis Simple chronic bronchitisAlbuterol Sulfate 90 mcg/actuation HFA aerosol inhaler Active0.ROUTE.COMPLEX8.511March 2023 9:50amINHALE 2 PUFFS BY MOUTH EVERY 6 HOURS NEEDED FOR COUGH AND WHEEZINGComplies with drug therapyAtorvastatin 10 mg tabletDiscontinued0.ROUTE.ZQJVCCY688Fiey 8th, 2024 12:52pmSeptember 2023 4:28pmTAKE 1 TABLET EVERY EVENINGAtorvastatin 10 mg luehuxCoxrdgohsfqf10HJGV Every oyuhkqs35052Dzwalqwwn 6th, 2024 4:27pmMay 2024 12:54pmAmlodipine 5 mg zmrvwpUlkhrcqqndhq3UONPGflexAknvptlv 6th, 2024 11:42amNovember 2023 11:45amHydrochlorothiazide 12.5 mg quopceHpeaucmlajzx24.5MGPODailyNov2023 11:42amNoveer 2023 11:45amBenazepril 20 mg oklogcAfmesbfzppyk95NNEK DailyJanuary 02, 2024 11:43amNovemb2023 11:45amAmlodipine 5 mg tablet Xatkey3CEZDAsctl038Kpnquwri 6th, 2024 11:43amComplies with drug therapy Hydrochlorothiazide 12.5 mg funmuhIcmmdtvnlcgs64.8YRXGIncke302Rrtewdnk 6th, 2024 11:44amMarch 2024 11:51amBenazepril 20 mg pwveleKxfvlaxkxvha93XOMZTvino903 January 02, 2024 11:44amMarch 2024 11:51amRosuvastatin 20 mg tabletActive 74NCLCQbxrd44434Dgn 2024 12:00amComplies with drug therapyFamotidine 40 mg foogcfPlybzz53GAORDs [facility] 2024 1:00ampre cathComplies with drug therapyPrednisone 20 mg pubazaFyaisyvxqoue79CJJYKv [facility] 2024 1:00amJune 2024 1:32pmpre cathTriamcinolone Acetonide 0.5 % creamActive1 APPLICTOPICALTwice daily as needed for skin irritation[facility] 20[facility] 1:00am Complies with drug therapyBenazepril 20 mg sdmvcxOmvqeq01DRKIAyzre eveningKindred Hospital [facility] 2024 1:00amComplies with drug therapyHydrochlorothiazide 12.5 mg tablet Wxuodl70.5MGPOEvery morningKindred Hospital [facility] 2024 1:00amComplies with drug therapy Diphenhydramine Hcl 25 mg sfcshvdXlgjmo15SRSEUo [facility] 2024 1:00am pre cathComplies with drug therapyCholecalciferol (Vitamin D3) (Vitamin D3) 25 mcg (1,000 unit) kihygnrRipkng5084SXUFFCPmbhnJmgrx 2024 1:00amComplies with drug therapyCyanocobalamin (Vitamin B-12) (Vitamin B-12) 1,000 mcg tabletActive 1000MCGPODailyKindred Hospital [facility] 2024 1:00amComplies with drug therapyTramadol 50 mg wuuhghIkhgqj80MFSBBmeaj as needed for painMarch 2024 1:00amComplies with drug therapyAscorbic Acid (Vitamin C) 1,000 mg pkgejufSvninx8HCWJRqcqsQitgv 2024 12:00amComplies with drug therapyAcyclovir 5 % ointmentDiscontinued1 APPLICTOPICALSix times tigpt7516Zgic 2023 12:00amNovember 2023 11:42amLevofloxacin 750 mg hqdowmPgzsltrddwrh089WEUZFpkxh778Guddgnzy 2023 1:00amMarch 2023 8:37amPrednisone 20 mg rabrpcThkjejfyivvj94EGMVWvazl slywe6152Lmwnpoow 2023 1:00amMarch 2023 8:37amTake w/ foodAlbuterol Sulfate 2.5 mg /3 mL (0.083 %) solution for nebulizationDiscontinued2.5MG INHALATIONEvery 6 hours as needed for shortness of breath or xlduxpwz70946 April 19, 2023 1:00amFebruary 2023 3:32pmSimple chronic bronchitis Simple chronic bronchitisAzithromycin 250 mg jgharbNxlcocqdriph249HHPVDl Niflhsln123Vbncy 2023 12:00amSeptember 2023 1:51pmPrednisone 20 mg tfqswuCpfybzbowicp52SERGKosdb lhvpp4413Tnywy 2023 12:00amMarch 2023 12:39pm1 tab tid w/ food x 3 days, then bid w/ food x 3 days, then qd w/ food x 3 daysFluticasone Propion-Salmeterol (Advair Hfa) 45-21 mcg/actuation HFA aerosol jylyenfQnrbnxftlsov0KWQXAPGJHEERURLtsac 12 crmyc64083Lcarf 2023 12:00amMay 2023 11:10amadminister with spacerAlbuterol Sulfate 2.5 mg /3 mL (0.083 %) solution for nebulizationActive2.5MGINHALATIONEvery 6 hours as needed for shortness of breath or tdedaelc11051Wdtfr 2023 9:14amSimple chronic bronchitis Simple chronic bronchitisComplies with drug therapyPrednisone 20 mg tablet Znwbtvzppdlj63ETNIVphdw gkcaa1606Thpsk 2023 12:38pmSeptember 2023 1:52pmDoxycycline Hyclate 100 mg jpjiafsQorqaydykcoo897USYHGcwnc zsyqc854 April 11, 2023 1:00amFebruary 2023 11:14amAlbuterol Sulfate 90 mcg/actuation HFA aerosol gvmpykwPgnmrdosvhso6JMPGRGLNFHBKFYOwlcw 6 hours as needed for cough and wheezing8.50February 2023 1:00amMarch 2023 9:50amApixaban 2.5 mg tabletDiscontinuedMGPOTwice dailyFebruary 2023 1:00amSeptember 2023 1:51pmFreeTextSig: as directed Orally Twice a day; Note: Source Status: Continue; Provider: Kam HurtEBenazepril 20 mg tablet Lttmgdytrgdw4GSKTXKnwpdBhqmdjmi 2023 1:00amNoveer 2023 11:43am FreeTextSi tablet Orally Once a day; Note: Source Status: Continue; Provider: Kam Hurt EAspirin 81 mg tablet,delayed release (DR/EC)Knsojm67SM PODailyFebruary 2023 1:00amComplies with drug therapyAtorvastatin 10 mg cotvyqRnelmxaiihqm58WBBEDprcsFleiucoi 2023 1:00amJune 2023 12:52pm Hydrochlorothiazide 12.5 mg elkqzwMtxxpinzyekf2XTLDFRubrxNsdwnsjd 2023 1:00amNovember 2023 11:43amFreeTextSi tablet in the morning Orally Once a day; Note: Source Status: Continue; Provider: Kam Hurt EAmlodipine 5 mg jrghvhIlwxafwekubv3HMOZVFlcjnNfgvsvub 2023 1:00amNovember 2023 11:43amFreeTextSi tablet Orally Once a day; Note: Source Status: Continue; Provider: Kam Hurt EFluticasone Propion-Salmeterol (Wixela Inhub) 250-50 mcg/dose blister with fvbxlsCilqan6YIOVJZGDCJRVREwmgn daily as needed for shortness of breath or wheezingMay 2023 12:00amComplies with drug therapy Apixaban (Eliquis) 2.5 mg tabletActive2.5MGPOTwice dailyJuly 2023 12:00am hx DVTOn Hold: Resume on 05/06/24.Complies with drug therapyTriamcinolone Acetonide 0.5 % tedxyLtbhowhzhpzi8GTTXDNNLPBGZPOnxmw cjbbj22878Byugxltya 2023 12:00amMarch 2024 11:51amDoxycycline Hyclate 100 mg capsule Utdwttergjpz038QSVCBeonb mmixj0795Mlmsbmqbx 2023 12:00amMarch 2024 11:48am Immunizations Immunization Event Date Not Given Reason Dose Number Top Knitter Lot Number Reason(s) Given Vaccine Information Statement (VIS) Detail Administration Location COVID-19 mRNA, Comirnaty (Raising IT) March 28, 2020 COVID-19 mRNA, Comirnaty (Raising IT)April 18OVID-19 mRNA, Comirnaty (Raising IT)November 22OVID mRNA Bivalent Booster (Raising IT)November 15OVID-19 (Pllop.it) 12Y and olderOctober OVID-19 (Pllop.it) 12Y and olderOctober 2023Fluzone TIV High-Dose 65YR+ December 19, [id number]. Francis HospitalFluzone TIV High-Dose 65YR+ December 09, [id number]. Francis Hospitalinfluenza, unspecified formulationOctober 2014influenza, unspecified formulationOctober 2016influenza, unspecified formulationSeptember 2017influenza, unspecified formulationOctober 2018influenza, unspecified formulationSeptember 2019influenza, unspecified formulationSeptember 2020influenza, unspecified formulationOctober 2021influenza, unspecified formulationSeptember neumococcal Conjugate Vaccine, 13 valentNovember 2014Pneumococcal Polysacc. Vaccine, 23 valentMay 2016 Relevant Diagnostic Tests and/or Laboratory Data Laboratory Results Test Collection Date/Time Result Date/Time Result Interpretation Reference Range Result Comment Performing Site Cholesterol/HDL Ratio September 23, 2024 8:08am September 23 8:08am 3.0 3.3 - 4.4 LOW RISK4.4 - 7.1 AVERAGE RISK7.1 - 11.0 MODERATE RISK>11.0 HIGH RISK Alanine Aminotransferase (ALT/SGPT)September 23, 2024 8:08amJuly 2024 8:08am 22 U/J48-96Mgyfqbydw Amino Transf (AST/SGOT)September 23, 2024 8:08amJuly 2024 8:08am16 U/O03-09Wepzphuxlap LevelJuly 2024 8:08amJuly 2024 8:69pl122 mg/dL<=200HDL CholesterolJuly 2024 8:08amJuly 2024 8:08am 48 mg/dL40-60> or =60 mg/dl - LOW CARDIOVASCULAR RISK<40 mg/dl - HIGH CARDIOVASCULAR RISKLDL Cholesterol, CalculatedJuly 2024 8:08amJuly 2024 8:08am81.6 mg/dL<100 mg/dl AKGKRBJ745-698 mg/dl NEAR OR ABOVE XKMDHOU497- 159 mg/dl BORDERLINE VRXC605-415 mg/dl HIGH>190 mg/dl VERY HIGHTriglycerides LevelJuly 2024 8:08amJuly 2024 8:08am82 mg/dL<=150VLDL Cholesterol September 23, 2024 8:08amJuly 2024 8:08am16.4 mg/dL Vital Signs Vital Reading Result Reference Range Collection Date/Time Height 67 [in_i] December 22, 2024 10:46vzOjkagf60.97 kgOctober 2024 10:40amBody Znkzxxvhiho02.6 [degF]97.6-99.0October 2024 10:40amHeart Rate58 /rrq68-834 December 22, 2024 10:40amOxygen saturation by Pulse eivaiaop32 %95-100[facility] 2024 10:40amBP Nqyogenl152 mm[Hg]100-140Octb[facility] 2024 10:40amBP Segtyozyi52 mm[Hg]60-100[facility] 2024 10:40amBMI (Body Mass Index)29.0 kg/t8Pggjvkb 2024 10:40am Advance Directives Advance Directive Response Recorded Date/ Time Advance Directives No December 15, 2016 2:09pm Insurance Providers Guarantor Len Noriega Address [address] [facility] [id number] Info.Home Phone: Payer Group Member ID Coverage Type Subscriber Relationship to Subscriber Effective Date Expiration Date Medicare [id number] R Missler Id: [id number] [facility] [address] Home Phone: Email: [email or web address] Claims Id: Plan [id number] R Missler Id: [id number] [facility] [address] Home Phone: Email: [email or web address] Encounters Encounter Location(s) Arrival/Admit Date Discharge/Departure Date Discharge/Departure Disposition Provider(s) Non-patient / Non-visit -[facility] Professional Kimmie Price [facility] 2024 8:08am Dominick Rivera MD FACon-patient / [facility] OutPtJuly 2024 11:59pmBlue Arriazaarted Physician/Provider Office Visit- [facility] 3:[facility]pmOct[facility] 2024 3:48pm Discharged to home care or self care (routine discharge)Blu Humphrey DO Departed Physician/Provider Office Visit-[facility] 2024 10:36amOctb[facility] 2024 11:06amDischarged to home care or self care (routine discharge)Blu Humphrey DO
--- OUTSIDE RECORDS SUMMARY | 2024-12-24 11:32 | XMS_ITS | Clinical Summary ---
Author Organization [facility] Address [address] [facility] [address], [address] [place] [address] Care Team Providers Care Telecommunications Linesworker Name Role Phone Blu Humphrey DO Primary Care Provider Allergies Active AllergyReactionsCriticalityNoted DateComments Sulfamethoxazole-UmqrlikyvqorTrltSxy76/20/2021IodidesHives,Ychnbgx7007/15/2020 Medications MedicationSigDispense QuantityRefillsLast FilledStart DateEnd DateStatus benazepril (LOTENSIN) 20 MG tablet Take 20 mg by mouth every eveningActive atorvastatin (LIPITOR) 10 MG tablet Take 10 mg by mouth every eveningActive Ascorbic Acid (VITAMIN C) 1000 MG tablet Take 1,000 mg by mouth 2 times dailyActive fluocinonide (LIDEX) 0.05 % cream Apply topically as needed (for occasional rash on lower legs) Uses very rarely Active Active Problems ProblemNoted DateDiagnosed DateHemarthrosis of right knee08/21/2020FO (patent foramen ovale) with history of yowcse3708/21/2020ssential whunycgiwnhr06/26/2021 Postoperative anemia due to acute blood loss08/21/2020hronic anticoagulation 08/21/2020History of DVT (deep vein thrombosis)08/10/2020/P total knee arthroplasty, right08/09/2020 Resolved Problems ProblemNoted DateDiagnosed DateResolved DatePrimary osteoarthritis of right knee / Immunizations ImmunizationAdministration DatesNext DueCOVID-19, Inactive, PFIZER PURPLE top, DILUTE for use, (age 12 y+)04/18/2020,03/28/2020 Social History Tobacco UseTypesPacks/DayYears UsedDateSmoking Tobacco: FormerCigarettesQuit: 1966Smokeless Tobacco: NeverAlcohol UseStandard Drinks/IdskZllhrlqrMmw34 (1 standard drink = 0.6 oz pure alcohol)Sex and Gender InformationValueDate RecordedSex Assigned at BirthNot on fileLegal YzoUkwu8706/15/2020 1:35 PM EDT Gender IdentityNot on fileSexual OrientationNot on file Last Filed Vital Signs Vital SignReadingTime TakenCommentsBlood Mgpqtzer940/6406 7:16 AM EDT Ruvaa4001 7:16 AM MTGPhnpdhccbms02.7 ??C (98.1 ??F)08/22/2020 7:16 AM EDTRespiratory Lfvm912108/22/2020 7:16 AM EDTOxygen Uwzrsnebgi64%08/22/2020 7:16 AM EDTInhaled Oxygen Concentration--Mebiav04.6 kg (180 lb)08/22/2020 5:53 AM EDT Kswmec696.7 cm (5' 8 )08/21/2020 11:09 AM EDTBody Mass Index27.37008/21/2020 11:09 AM EDT Plan of Treatment Health MaintenanceDue DateLast FtaiMnexxidsQowfqg47/16/1955Depression Screen 1957Hepatitis C gfdzoy2201/11/1963DTaP/Tdap/Td vaccine (1 - Tdap)01/12/1964 Shingles vaccine (1 of 2)1995Pneumococcal 50+ years Vaccine (2 of 2 - PCV) Respiratory Syncytial Virus (RSV) or age 60 yrs+ (1 - 1-dose 75+ series)01/12/2020Flu vaccine (#1)/COVID-19 Vaccine (3 - 2024- season)502/, 03/28/2020Hepatitis A vaccine Aged OutNo longer eligible based on patient's age to complete this topic Hepatitis B vaccineAged OutNo longer eligible based on patient's age to complete this topicHib vaccineAged OutNo longer eligible based on patient's age to complete this topicMeningococcal (ACWY) vaccineAged OutNo longer eligible based on patient's age to complete this topicMeningococcal B vaccineAged OutNo longer eligible based on patient's age to complete this topicPolio vaccineAged OutNo longer eligible based on patient's age to complete this topic Medical Devices ImplantedTypeAreaManufacturerDevice IdentifierShelf Expiration DateModel / Serial / LotUpcharge Knee Primary Attune Aox Insert Depuy Synthes Implanted:Qty: 1 on 08/09/2020 [facility]: KneeSYNTHES-[id number] / / Cement Bne 40gm Full Dose Pmma W/O Antibio Hi Visc N Radpq Implanted:Qty: 2 on 08/09/2020 [facility] KneeJNJ DEPUY [employer]-[id number] / / [id number] Pat Iez50sq Knee Poly Anuel Medialized Nayla Attune Implanted:Qty: 1 on 08/09/2020 by Pb [facility] at [facility]Rig: KneeJNJ [employer]PUY [employer]-[id number] / / [id number] Tib Sz 7 Fix Bear Anuel Attune Implanted:Qty: 1 on 08/09/2020 by [facility] KneeJNJ [employer]-[id number] / / [id number] Fem Sz 7 R Knee Post Stbl Anuel Attune Implanted:Qty: 1 on 08/09/2020 by [facility]: KneeJNJ DEPUY [employer]-[id number] / / [id number] Tib Sz 7 Thk7mm Knee Post Stbl Fix Bear Attune Implanted:Qty: 1 on 08/09/2020 by [facility]: KneeJNJ [employer]-[id number] / / [id number] Insurance Advance Directives * Full Code (Latest Code Status on File) Date ActivatedDate InactivatedComments08/21/2020 10:04 AM08/22/2020 2:44 PM * Full Code Date ActivatedDate InactivatedComments08/09/2020 9:06 PM08/10/2020 2:45 PM Care Teams Team MemberRelationshipSpecialtyStart DateEnd Date Blu Humphrey DO [address] [facility] [place] [address] PCP - GeneralInternal Medicine07/15/20
--- OUTSIDE RECORDS SUMMARY | 2024-12-24 11:32 | XMS_ITS | Clinical Summary ---
Author Organization [facility] Address [address] [place], [place] [address] Care Team Providers Care Fashion Design Professor Name Role Phone Blu Humphrey DO Primary Care Provider [phone] Allergies Active AllergyReactionsCriticalityNoted DateComments Sulfamethoxazole-BfvbmlsvnjpqAftge96/15/2016Contrast WpuDrkubSjnr73/18/2011 Medications MedicationSigDispense QuantityRefillsLast FilledStart DateEnd DateStatus atorvastatin (LIPITOR) 10 mg ORAL tablet ONCE DAILYActive warfarin 2 mg tablet Take 1 tablet by mouth once daily. 2mg/3mg Sun-Iki448ctive traMADol (ULTRAM) 50 mg tablet Take 50 mg by mouth as needed.Active clobetasol (TEMOVATE) 0.05 % cream Apply 1 application to affected area as needed.06/02/2015Active fluocinonide (LIDEX) 0.05 % cream Apply 1 application to affected area as needed.06/02/2015Active benazepril (LOTENSIN) 20 mg tablet Take 20 mg by mouth once daily.Active Active Problems ProblemNoted DateDiagnosed WqiaPkjsyulbgsiwrshs31/15/6160Slqkksfqev54/15/2016 Unintentional weight eloamz8806/11/2015Pain in joint, shoulder akdjde7304/12/2010 Muscular wasting and disuse atrophy, not elsewhere xypftpfxyt23/15/2011enign neoplasm of skin09/18/2006[facility] SOLAR SKIN DAMAGE EGZx30508/02/2006 Family History Medical HistoryRelationCommentsCancerBrother 1Coronary Artery DiseaseBrother 1 Multiple myeloma [Other]Brother 2ArthritisFatherCancerFatherDementia [Other] FatherKidney removal [Other]FatherCHF [Other]MotherDiabetesMotherHTN [Other] MotherHYperlipidemia [Other]MotherHypertensionMotherLipidsMotherMyesthenia Gravis [Other]MotherStrokeMotherColon CancerSisterRelationStatusCommentsBrother 1Brother 2FatherMotherSister Social History Tobacco UseTypesPacks/DayYears UsedDateSmoking Tobacco: FuuvuhPowyloxsbh53 10/10/1962 - 10/11/1967Smokeless Tobacco: Never Comments:pt smoked until he was 21 years old then quit Alcohol UseStandard Drinks/WeekCommentsYes0 (1 standard drink = 0.6 oz pure alcohol)3-4 beers dailyArea Deprivation IndexAnswerDate RecordedNational Score (1-100), lower number is lower riskNot on file02/01/2020State Score (1-10), lower number is lower riskNot on file02/01/2020Data from: https://www.neighborhoodatlas.medicine.[facility].edu/. Last address used for calculationNot on file02/01/2020Sex and Gender InformationValueDate RecordedSex Assigned at BirthNot on fileLegal HhhBpyv92/02/2012 7:32 AM ESTGender Identity Not on fileSexual OrientationNot on fileOccupationIndustryJob Start DateJob End DateNot on fileNot on fileNot on fileNot on file Last Filed Vital Signs Vital SignReadingTime TakenCommentsBlood Qlnhcnhc003/7006 11:26 AM EDT Gswob5804 11:26 AM HQSPksnzgwlaeo37.9 ??C (98.4 ??F)12/24/2015 9:56 AM EDTRespiratory Zfsb7333 11:26 AM EDTOxygen Yjndgwmcfz26%08/13/2017 11:26 AM EDTInhaled Oxygen Concentration--Efesva07.7 kg (178 lb)08/13/2017 11:26 AM CTCRzzuza503.9 cm (5' 6.5 )08/13/2017 11:26 AM EDTBody Mass Index28.306 11:26 AM EDT Plan of Treatment Health MaintenanceDue DateLast DoneCommentsAnxiety Rhijjxgib28/16/1963Depression Iifhaigtg59/16/1963DTaP,Tdap,Td Vaccine (1 - Tdap)01/12/1964Pneumococcal Vaccine: 50+ (1 of 1 - PCV)1995Shingrix Vaccine (1 of 2)1995Diabetes Tavwkribh60, 2011, 09/13/2010, Additional history existsRSV Vaccine (1 - 1-dose 75+ series)01/12/2020Advance Directive Discussion 5Covid-19 Vaccine (1 - 2024- season)2024Influenza Vaccine (#1) 2024 Medical Devices ImplantedTypeAreaManufacturerDevice IdentifierShelf Expiration DateModel / Serial / LotAnchor Suture Corkscrew 5.5mm - [id number] [facility] - Shoulder [employer]02/25/[id number] / / [id number] Cld Eye 4.32q17hp - [id number] Implanted:Qty: [facility]11[facility] Anchor[facility]: Bone - ShoulderARTHREX INC08/25/[id number] / / [id number] Procedures Procedure NamePriorityDate/TimeAssociated DiagnosisCommentsBASIC METABOLIC PANEL Xbtrkpb2606/11/2015 1:23 PM EDT Leukopenia, unspecified type Thrombocytopenia (HCC) Unintentional weight change from Last 3 Months or Most Recently Relevant to Health Maintenance Results * BASIC METABOLIC PNL (06/11/2015 1:23 PM EDT)ComponentValueRef RangeTest Method Analysis TimePerformed AtPathologist NnpratjftEigovid9098 - 100 mg/dL 06/11/2015 11:18 [facility] PGORCWRYOCCFV2186 - 25 mg/dL 06/11/2015 11:18 PM [facility]TC[facility] LABORATORYCreatinine0.790.70 - 1.40 mg/dL06/11/2015 11:18 [facility] SVFYDXZWRNYkxmnz275414 - 146 mmol/L06/11/2015 11:18 PM [facility]TC[facility] LABORATORYPotassium 4.93.5 - 5.0 mmol/L06/11/2015 11:18 PM [facility] Evxyfqqa94390 - 110 mmol/L06/11/2015 11:18 PM [facility] WPEENSIRIMGB23940 - 32 mmol/L06/11/2015 11:18 PM [facility] LABORATORYAnion Rto068 - 15 mmol/L06/11/2015 11:18 PM [facility] LABORATORYCalcium9.28.5 - 10.5 mg/dL06/11/2015 11:18 PM [facility] LABORATORYeGFR->6004 11:18 PM [facility] LABORATORYeGFR-All Other Races>60.06/11/2015 11:18 PM [facility] LABORATORYComment: eGFR (Estimated GFR) Units of measure: mL/min/1.73 [...] eGFR may not accurately reflect actual GFR. Specimen (Source)Anatomical Location / LateralityCollection Method / Volume Collection TimeReceived TimeBlood specimen (specimen)BLOOD SPECIMEN / Unknown 06/11/2015 1:23 PM EDT06/11/2015 1:46 PM EDT Narrative Authorizing ProviderResult TypeResult StatusJames E FanningLABORATORYFinal ResultPerforming OrganizationAddressCity/State/ZIP CodePhone Number [facility] [address] [place] [address] from Last 3 Months or Most Recently Relevant to Health Maintenance Insurance Care Teams Team MemberRelationshipSpecialtyStart DateEnd Date Blu Humphrey DO [facility] - General11/22/04
--- OUTSIDE RECORDS SUMMARY | 2024-12-24 11:32 | XMS_ITS | Clinical Summary ---
Author Organization [facility] Address [address] [place] [address] Phone Care Team Providers Care Mobile Home Set Up Person Name Role Phone Blu Humphrey Primary Care Provider [phone] Allergies Active AllergyReactionsCriticalityNoted DateCommentsIodidesHives,ItchingMedium 07/15/2020Iodinated Contrast SygryHapncWkkt96/18/2011SulfamethoxazoleHivesMedium 02/27/2023Sulfamethoxazole-TrimethoprimHives,YlqiRkz2006/11/2015 Medications MedicationSigDispense QuantityRefillsLast FilledStart DateEnd DateStatus amLODIPine (Norvasc) 5 mg tablet Take 1 tablet (5 mg) by mouth once daily.01/11/2022ctive ascorbic acid (Vitamin C) 1,000 mg tablet Take 1 tablet (1,000 mg) by mouth once daily.Active benazepril (Lotensin) 20 mg tablet Take 1 tablet (20 mg) by mouth once daily in the evening.Active cholecalciferol (Vitamin D-3) 25 MCG (1000 UT) tablet Take 1 tablet (25 mcg) by mouth.06/16/2020ctive hydroCHLOROthiazide (HYDRODiuril) 12.5 mg tablet Take 1 tablet (12.5 mg) by mouth once daily.06/28/2022ctive aspirin 81 mg EC tablet Take 1 tablet (81 mg) by mouth once daily.Active apixaban (Eliquis) 2.5 mg tablet Take 1 tablet (2.5 mg) by mouth 2 times a day.Active cyanocobalamin (Vitamin B-12) 1,000 mcg tablet Take 1 tablet (1,000 mcg) by mouth once daily.Active traMADol (Ultram) 50 mg tablet Take 1 tablet (50 mg) by mouth if needed.Active rosuvastatin (Crestor) 20 mg tablet Indications:Coronary artery disease involving [place] coronary artery of [place] heart without angina pectoris,Hyperlipidemia, unspecified hyperlipidemia type Take 1 tablet (20 mg) by mouth once daily. 90 tablet /ctive Active Problems ProblemNoted DateDiagnosed DateCAD (coronary artery disease)07/02/2024 Tnzasayylyfwff71/07/2025Shortness of mmupzv5903/26/2024MI 27.0-27.9,adult 03/26/2024Former vpproy3103/26/2024PFO (patent foramen ovale)03/26/2023High risk medication use03/26/2023bnormal cydbkvreqzlnfb98/02/2024History of DVT (deep vein thrombosis)02/27/20238019Txhnczkzwfjq98/02/2024Lacunar fahxctdzyz86/02/2024 Encounters DateTypeDepartmentCare PcomCgiatfhghcm67/22/2025Telephone [facility] [address] [facility] [address] [place] [address] Jeanie Suazo RN 09/23/2024Scanned Document [facility] [address] [place] [address] Scanning, Generic Provider from Last 3 Months Immunizations ImmunizationAdministration DatesNext DueInfluenza, Ojvbdnkklgr59/01/2022, 11/26/2020,11/27/2019,11/13/2017,01/15/2017Influenza, seasonal, injectable 4Pfizer COVID-19 vaccine, 12 years and older, (30mcg/0.3mL) (Comirnaty) 3Pfizer COVID-19 vaccine, bivalent, age 12 years and older (30 mcg/0.3 mL)11/15/2021neumococcal polysaccharide vaccine, 23-valent, age 2 years and older (PNEUMOVAX 23)07/10/20164169WDHQ-FuS-5, Kwtgbfdmaeu43/01/2024 Family History Medical HistoryRelationNameCommentsCancerBrotherHeart failureBrotherDementia FatherHeart failureFatherKidney cancerFatherCVAMotherDiabetesMotherHeart failure MotherHyperlipidemiaMotherHypertensionMotherMyasthenia gravisMotherCancerSister RelationNameStatusCommentsBrotherFatherMotherSister Social History Tobacco UseTypesPacks/DayYears UsedDateSmoking Tobacco: FormerCigarettesQuit: 1965Smokeless Tobacco: Never Tobacco Cessation:Counseling Given: Not Answered Alcohol UseStandard Drinks/CpnhGejkoywnAxn79 (1 standard drink = 0.6 oz pure alcohol)3-4 beers dailySex and Gender InformationValueDate RecordedSex Assigned at BirthNot on fileLegal DfvDnyn3811/07/2022 8:53 AM EDTGender IdentityNot on file Sexual OrientationNot on file Last Filed Vital Signs Vital SignReadingTime TakenCommentsBlood Miawhhto170/6605 10:46 AM EDT Iwghh113807/02/2024 10:46 AM EDTTemperature--Respiratory Rate--Oxygen Saturation-- Inhaled Oxygen Concentration--Woggdd52.2 kg (181 lb 3.2 oz)07/02/2024 10:46 AM TTNVcvodz262.5 cm (5' 7.5 )07/02/2024 10:46 AM EDTBody Mass Index27.9607/02/2024 10:46 AM EDT Plan of Treatment DateTypeDepartmentCare Team (Latest Contact Info)Ykxubrkwpxu91/03/2026 10:[address] [facility] [address] [facility] [address] [place] [address] Teo Ragsdale MD [address] [facility] [address] [place] [address] Health MaintenanceDue DateLast DoneCommentsLipid Panel1945Medicare Annual Wellness Visit (AWV)1945Diabetes Wfqfppdis34/16/1963Hepatitis C Screening 1963DTaP/Tdap/Td Vaccines (1 - Tdap)1967Zoster Vaccines (1 of 2) 1995Pneumococcal Vaccine (2 of 2 - PCV), 01/20/2015RSV High Risk: (Elderly (60+) or Population) (1 - 1-dose 75+ series) 01/12/2020Influenza Vaccine (#1)5102/26/2023, 12/19/2023, 11/26/2022, Additional history existsCOVID-19 Vaccine ( season)2024 12/28/2023, 12/10/2023, 11/29/2022, Additional history existsHIB VaccinesAged OutNo longer eligible based on patient's age to complete this topicHPV Vaccines Aged OutNo longer eligible based on patient's age to complete this topic Hepatitis A VaccinesAged OutNo longer eligible based on patient's age to complete this topicHepatitis B VaccinesAged OutNo longer eligible based on patient's age to complete this topicIPV VaccinesAged OutNo longer eligible based on patient's age to complete this topicMeningococcal VaccineAged OutNo longer eligible based on patient's age to complete this topicRotavirus VaccinesAged Out No longer eligible based on patient's age to complete this topic Procedures Procedure NamePriorityDate/TimeAssociated DiagnosisCommentsOUTSIDE LAB SCAN 09/23/2024 from Last 3 Months Results * OUTSIDE LAB SCAN (09/23/2024) Narrative 09/23/2024 Ordered by an unspecified provider. Authorizing ProviderResult TypeResult StatusGeneric Provider ScanningOUTSIDE SCANFinal Result from Last 3 Months Insurance Care Teams Team MemberRelationshipSpecialtyStart DateEnd Blu Humphrey DO [address] [place] [address] PCP - GeneralInternal Medicine03/26/24
--- OUTSIDE RECORDS SUMMARY | 2024-12-24 11:49 | XMS_ITS | CCD ---
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 Name Role Phone CURT CHOWDHURY Unavailable Unavailable [...] FERRARO Attending Unavailable UZAIR LAWSON Consulting Unavailable MELANYWLOLIS MCDONALDIKTara Pacheco Admitting Unavailable FAWTAMARA, ASHTON H Attending Unavailable BALL, DR HURT Primary Care Unavailable FAWTAMARA, ASHTON H Admitting Unavailable FAWSHAIKH Tara MCDONALD Attending Unavailable BALL, DR HURT Primary Care Unavailable FAWTAMARA, ASHTON H Admitting Unavailable FAWWAToo, ASHTON H Attending Unavailable BALL, DR HURT Primary Care Unavailable SEAN AVILA Admitting Unavailable SEAN AVILA Attending Unavailable CLOVIS, DR HURT Primary Care Unavailable CL VARNER, DR JULIANA [place] Admitting Unavailabl e CL VARNER, DR JULIANA [place] Attending Unavailabl e CLOVIS, DR HURT Primary Care Unavailable CL VARNER, DR JULIANA [place] Consulting Unavailabl e BALL, DR HURT Admitting Unavailable CLOVIS, DR HURT Attending Unavailable CLOVIS, DR HURT Primary Care Unavailable CLOVIS, DR HURT Consulting Unavailable CLOVIS, DR HURT Admitting Unavailable CLOVIS, DR HURT Attending Unavailable CLOVIS, DR HURT Primary Care Unavailable CLOVIS, DR HURT Consulting Unavailable BLU VELEZ Primary Care Physician [phone] Clarisa Ibarra Attending Unavailable Clarisa Ibarra Attending Unavailable Blu Velez Unavailable Blu Velez Unavailable Unavailable Unavailable Teo Johnson Attending Unavailable Dr. Blu Velez Primary Care Angelia Velez, Dr. Blu Torres Referring Sitavai Blu Graham DO Primary Care Provider Blu Velez DO Primary Care Provider U navailable DO Blu Velez Primary Care Provider [phone] MD Yogesh Jacob II Attending Provider Blu Velez MD Primary Care Provider Blu Velez DO Primary Care Provider TEO JOHNSON Referring Unavailable BLU VELEZ Primary Care Unavailable TEO JOHNSON Referring Unavailable BLU VELEZ Primary Care Unavailable Blu Velez DO Primary Care Provider [phone] Teo Johnson MD Attending Provider [phone] Teo Johnson Admitting Unavailable Teo Johnson Attending Unavailable Blu Velez Primary Care Unavailable Blu Velez Primary Care Unavailable Yogesh Jacob II Admitting UnavailYogesh Reyes II Attending Unavailabl e Teo Johnson Admitting Unavailable Teo Johnson Attending Unavailable Blu Velez Primary Care Unavailable Blu Velez DO Primary Care Provider TEO JOHNSON Attending Unavailable TEO JOHNSON Referring Unavailable BLU VELEZ Primary Care Unavailable TEO JOHNSON Attending Unavailable BLU VELEZ Primary Care Unavailable Blu Velez DO Primary Care Provider Karlee Hill DO Attending Provider Teo Johnson MD Attending Provider [phone] Blu Velez DO Attending Provider [phone] Blu Velez DO Primary Care Provider ASHUTOSH MILLER Attending Unavailable ASHUTOSH MILLER Attending Unavailable CHEY HOLM Attending Unavailable BLU VELEZ Referring Unavailable CHEY HOLM Attending Unavailable ASHUTOSH MILLER Attending Unavailable ASHUTOSH MILLER Attending Unavailable LEAH SANFORD Attending Unavailable ASHUTOSH MILLER Attending Unavailable Blu Velez DO Primary Care Provider Karlee Hill DO Attending Provider Allergies Allergy ClassificationReported Allergen(s)Allergy TypeDate of OnsetReaction(s) FacilitySulfamethoxazole / Trimethoprim (3 sources)Sulfamethoxazole / TrimethoprimDrug Vfbsklu22-59-2320UomdWmvhg Health Unclassified (9 sources)Iodides; Translations: [IODIDES]Propensity to adverse reactions to pbwh98-12-9105Kgqsq, [facility]chingMer[facility] Health (10 sources)Contrast media; Translations: [CONTRAST DYE]Propensity to adverse reactions to drug (disorder)50-11-4494UAJ, [facility] Repository (9 sources)sulfamethoxazole / trimethoprim; Translations: [SULFAMETHOXAZOLE-TRIMETHOPRIM]Drug Myvnbne84-70-0145Ghqvl, [facility] Repository (1 source)Iodine (And Iodine Containting Drugs)Drug allergy (disorder)09-17-2013 [facility] Repository (1 source)Sulfamethoxazole / TrimethoprimDrug Yroqzqh98-02-4384PyeWright-[facility] Rep[facility] (10 sources)Sulfamethoxazole / TrimethoprimDrug Wfrpcwq08-61-6316KrqwwwxEbw [facility] Repository (20 sources)Iodine; Translations: [iodine]Drug Gsrtubo46-99-8507Mnyxpsd (qualifier value), UnknownExecutive [facility]rology of [facility] (2 sources)Sulfonamides (Antibiotic); Translations: [sulfa drugs]Drug allergy Unknown (qualifier value)[facility] (11 sources)Sulfamethoxazole / Trimethoprim; Translations: [Bactrim]Drug Allergy Unknown, Frazr Other (20 sources)SimvastatinDrug Hquuqpl82-95-7674Xmhjhko, Unknown Reaction, [facility] (8 sources)Allergies ReconciledPropensity to adverse reactionsBates County Memorial Hospital [employer] Other (20 sources)Iodinated contrast media (substance)Drug -58-2950Icxja, [facility] (20 sources)Substance with sulfonamide structure and antibacterial mechanism of action (substance)Drug xsdoknv61-08-1206Ytnra, [facility] [employer] Other (8 sources)Septra *ANTI-INFECTIVE AGENTS - MISC.*Propensity to adverse reactions [facility] [employer] Other (8 sources)Sulf-10Drug yrxkopz51-99-6263GwicnogBjgib DecaWave Other (8 sources)patient allergy list reviewed by nurse or physiciaPropensity to adverse gykwussum80-49-6156Hoihhqo:DoneEpigami Other (2 sources)Contrast mediaAllergy to substance (finding)[facility] [address] DO Work Phone: (13 sources)Sulfamethoxazole; Translations: [SULFAMETHOXAZOLE]Drug Allergy 79-75-1371WoioyVcobqpqnaOhiohealth Grove City [facility] Hospital (14 sources)Sulfonamides (Antibiotic); Translations: [Sulfa (Sulfonamide Antibiotics)]Allergy to vuppixbbf43-14-1347Jrmqfiq Reaction, [facility] (14 sources)Trimethoprim; Translations: [trimethoprim]Drug Obpuact15-15-1319 Unknown Reaction, [facility] (16 sources)Iodinated Contrast Media; Translations: [IODINATED CONTRAST MEDIA] Allergy to hopxlkozk57-78-1062Gknxrwy Reaction, Rash, itchingOhiohealth Grove City [facility] (1 source)IodineDrug Nnzjgcm68-08-2511BjyjdjrerOhiohealth Grove [facility] Hospital Repository (1 source)SimvastatinDrug Gttwjvh76-73-5843TrbppdlqmOhiohealth [facility] Repository Medications Current Medications MedicationDrug Class(es)DatesSig (Normalized)Sig (Original)Acetaminophen (3 sources)Start: 89-02-9584izrfaalnihryl (TYLENOL) tablet 650 mgStart: 93-45-2726swvs 650 mg by mouth every six hours, then take 4000 mg by mouth every twenty-four uxefk207 mg, Oral, EVERY 6 HOURS, First dose on Sun08/09/20 at 2200 Maximum dose of acetaminophen is 4000 mg from all sources in 24 hours. Post-op Start: 08-09-2020 End: 21-62-1156lppdcyacwegwx (TYLENOL) tablet 1,000 mgacetaminophen 325 mg / oxyCODONE hydrochloride 5 mg oral tablet (3 sources)Opioid AgonistStart: 08-22-2020 End: 53-91-2914bkmi 1 tablet by mouth every four hours as needed for pain oxyCODONE-acetaminophen (PERCOCET) 5-325 MG per tablet Indications: S/P total knee arthroplasty, right Take 1 tablet by mouth every 4 hours as needed for Pain for up to 7 days. 42 tablet 0 / DiscontinuedStart: 08-21-2020 oxyCODONE-acetaminophen (PERCOCET) 5-325 MG per tablet 1 tabletalbuterol 0.83 mg/ml inhalation solution (20 sources)beta2-Adrenergic AgonistStart: 94-36-4681nkkh 2 puff(s) by mouth every six hours as needed for cough and wheezingAlbuterol Sulfate 90 mcg/actuation HFA aerosol inhaler Active 0 .ROUTE .COMPLEX 8.5 11 May 02 9:50am INHALE 2 PUFFS BY MOUTH EVERY 6 HOURS NEEDED FOR COUGH AND WHEEZING Complies with drugtherapyStart: 04-19-2023 End: 79-23-3642unry 2.5 mg by inhalation every six hours as needed for wheezing Albuterol Sulfate 2.5 mg /3 mL (0.083 %) solution for nebulization Discontinued 2.5 MG INHALATION Every 6 hours as needed for shortness of breath or wheezing 75 30 0 April 19, 2023 3:32pm May 10, 2023 9:15am Simple chronic bronchitis Simple chronic bronchitisStart: 04-11-2023 End: 70-64-2275namp 1 puff(s) by inhalation every six hours as needed for cough and wheezingAlbuterol Sulfate 90 mcg/actuation HFA aerosol inhaler Discontinued 2 PUFF INHALATION Every 6 hoursas needed for cough and wheezing 8.5 0 April 11, 2023 1:00am May 03, 2023 9:50amascorbic acid 1000 mg oral capsule (20 sources)Vitamin CStart: 50-34-4230udto 1 g by mouth once dailyAscorbic Acid (Vitamin C) 1,000 mg capsule Active 1 GM PO Daily May 05, 2024 12:00am Complies with drug therapyStart: 49-15-6153edjt 1 g by mouth once dailyAscorbic Acid (Vitamin C) 1,000 mg capsule Active 1 GM PO Daily May 05, 2024 12:00am take 1 tablet by mouth in the morningAscorbic Acid (vitamin C) 1000 MG tablet Take 1,000 mg by mouth in the morning. ActiveVitamin C ER 1000 MG TBCR TAKE 1 TABLET DAILY. Quantity: 0 Refills: 0 Ordered: 09-Nov-2022 DO Activeaspirin 81 mg delayed release oral tablet (20 sources)Platelet Aggregation Inhibitor, Nonsteroidal Anti-inflammatory Drug Start: 25-03-9482ciot 1 tablet by mouth once dailyAspirin 81 mg tablet,delayed release (DR/EC) Active 81 MG PO Daily April 11, 2023 1:00am Complies with drug eqswpurOSWIIWZ-MESADSRYI-RHTM ORAL (4 sources) End: 04-50-2625ecty 1 tablet by mouth in the xhdbdpsMPFZWFO-VERVWEGOE-VAFO ORAL Take 1 tablet by mouth early in the morning.. 07/02/2024 Discontinued (Med List Cleanup)take 1 tablet by mouth in the hvtfaaaSYLOVNC-RPHLSMVNN-GOLX ORAL Take 1 tablet by mouth early in the morning.. Activecholecalciferol 0.025 mg oral capsule (11 sources)Vitamin DStart: 10-01-3833yhel 1 capsule by mouth once daily Cholecalciferol (Vitamin D3) (Vitamin D3) 25 mcg (1,000 unit) capsule Active 1000 UNIT PO Daily May 02, 2024 1:00am Complies with drug therapyStart: 98-08-7491dlaykadtrmjgtvp (Vitamin D-3) 25 MCG (1000 UT) tablet Take 1 tablet (25 mcg) by mouth. 06/16/2020 ActiveVitamin D-3 25 MCG (1000 UT) Oral Capsule TAKE DIRECTED. Quantity: 0 Refills: 0 Ordered: 09-Nov-2022 DO Active diphenhydrAMINE hydrochloride 25 mg oral capsule (6 sources)Histamine-1 Receptor AntagonistStart: 46-35-6337Gsagkelnmoibozc Hcl 25 mg capsule Active 25 MG PO As Directed May 02, 2024 1:00am pre cath Compli es with drug therapyStart: 04-30-2024 End: 60-41-6365lxjf 1 tablet by mouth three times dailydiphenhydrAMINE (Benadryl Allergy) 25 mg tablet Indications: Allergy to iodinated contrast Take 1 tablet (25 mg) by mouth see administration instructions for 6 doses. 1 tablet by mouth three times a day with last dose being morning of procedure. 6 tablet 04/30/2024 07/02/2024 Discontinued ([facility] Feliz)docusate sodium 100 mg oral capsule (1 source)Start: 16-62-2465jcibbshv sodium (COLACE) capsule 100 mg0.8 ml enoxaparin sodium 100 mg/ml prefilled syringe (3 sources)Low Molecular Weight HeparinStart: 08-10-2020 End: 90-62-9123tckrkrrbtx (LOVENOX) 80 MG/0.8ML injection Inject 0.8 mLs into the skin 2 times daily for 7 days 11.2 mL 0 08/10/2020 08/17/2020 ActiveStart: 08-10-2020 End: 44-71-3130qlsnfkezkj (LOVENOX) injection 40 mg End: 22-27-2503fiwehkfibo (LOVENOX) 80 MG/0.8ML injection Inject 80 mg into the skin 2 times daily 0 08/09/2020 Discontinued (Stop Taking at Discharge) famotidine 40 mg oral tablet (6 sources)Histamine-2 Receptor AntagonistStart: 04-30-2024 End: 19-85-4253Mqwhljjpnt 40 mg tablet Active 40 MG PO As Directed May 02, 2024 1:00am pre cath Complies with drug therapyfluocinonide 0.5 mg/ml topical cream (3 sources)Corticosteroidfluocinonide (LIDEX) 0.05 % cream Apply topically as needed (for occasional rash on lower legs) Uses very rarely 0 ActiveFluticasone Propion-Salmeterol (20 sources)Corticosteroid, beta2-Adrenergic AgonistStart: 39-27-5795Vtucagcxdex Propion-Salmeterol (Wixela Inhub) 250-50 mcg/dose blister with device Active 1 INH INHALATION Twice daily as needed for shortness of breath or wheezing July 17, 2023 12:00am Complies with drug therapyStart: 34-57-0477Zbhxy: 07-17-2023 Fluticasone Propion-Salmeterol (Wixela Inhub) 250-50 mcg/dose blister with device Active 1 INH INHALATION Twice daily as needed for shortness of breath or wheezing July 17, 2023 12:00amStart: 02-05-2870Tgbuuidpepb Propion-Salmeterol (Wixela Inhub) 250-50 mcg/dose blister with device Active 1 INH INHALATION Twice daily July 17, 2023 12:00amStart: 05-10-2023 End: 02-79-6025byrn 1 puff(s) by inhalation every twelve hoursFluticasone Propion-Salmeterol (Advair Hfa) 45-21 mcg/actuation HFA aerosol inhaler Discontinued 2 PUFF INHALATION Every 12 hours May 10, 2023 12:00am July 17, 2023 11:10am administer with spacerStart: 05-10-2023 End: 87-96-4379dwbo 1 puff(s) by inhalation every twelve hoursFluticasone Propion-Salmeterol (Advair Hfa) 45-21 mcg/actuation HFA aerosol inhaler Discontinued 2 PUFF INHALATION Every 12 hours 02 24May 10, 2023 12:00am July 17, 2023 11:10am administer withspacerStart: 81-79-2949ztpj 1 puff(s) by inhalation every twelve hoursFluticasone Propion-Salmeterol (Advair Hfa) 45-21 mcg/actuation HFA aerosol inhaler Active 2 PUFF INHALATION Every 12 hours 02 24May 10, 2023 12:00am administer with spacerHYDROmorphone (DILAUDID) injection 0.25 mg (1 source)Start: 91-50-6203PUPGOduurmxnc (DILAUDID) injection 0.25 mg100 ml magnesium sulfate 10 mg/ml injection (1 source)Start: 60-01-5716sddepvsjf sulfate 1000 mg in dextrose 5% 100 mL IVPB morphine (PF) injection 2 mg (1 source)Start: 70-86-7291ozeyilfn (PF) injection 2 mgmupirocin 0.02 mg/mg topical ointment (2 sources)RNA Synthetase Inhibitor AntibacterialStart: 10-28-2024 End: 68-72-8932pbqwcwfxn (Bactroban) 2 % ointment Indications: 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 Apply to right ear once a day until healed/30 days 22 g 10/28/2024 11/07/2024 Activeondansetron (ZOFRAN-ODT) disintegrating tablet 4 mg (1 source)Start: 37-89-3555gonqrazgqph (ZOFRAN-ODT) disintegrating tablet 4 mg oxyCODONE (1 source)Opioid AgonistStart: 96-43-7120aeqXKAWPH (ROXICODONE) immediate release tablet 5 mgpolyethylene glycol 3350 37312 mg powder for oral solution (1 source)Osmotic LaxativeStart: 41-40-5153awfknvungqau glycol (GLYCOLAX) packet 17 gPotassium Chloride (1 source)Start: 87-29-1897vhtgxwuzi chloride (KLOR-CON M) extended release tablet 40 mEqPromethazine (1 source)PhenothiazineStart: 63-85-1949amqzrzazwgxq (PHENERGAN) tablet 12.5 mg rosuvastatin calcium 20 mg oral tablet (15 sources)HMG-CoA Reductase InhibitorStart: 07-02-2024 End: 46-26-1672svlh 1 tablet by mouth once dailyRosuvastatin 20 mg tablet Active 20 MG PO Daily 30 30 0 July 11, 2024 12:00am Complies with drug therapytraMADol hydrochloride 50 mg oral tablet (17 sources)Opioid AgonistStart: 45-00-6430Pqrujbda 50 mg tablet Active 25 MG PO Daily as needed for pain May 02, 2024 1:00am Complies withdrug therapyStart: 11-05-1218acqh 1 tablet by mouth every six hourstraMADol HCl 50 MG 1 tablet as needed Orally every 6 hrs for 30 days Mar, Not-Taking End: 21-74-2005tyku 1 tablet by mouth every twelve hours as needed for pain traMADol (ULTRAM) 50 MG tablet Take 50 mg by mouth every 12 hours as needed for Pain. 0 08/09/2020 Discontinued (Stop Taking at Discharge)triamcinolone acetonide 5 mg/ml topical cream (20 sources)CorticosteroidStart: 92-74-1100Kpordspmzeogi Acetonide 0.5 % cream Active 1 APPLIC TOPICAL Twice daily as needed for skin irritation May 02, 2024 1:00am Complies with drug therapyStart: 11-20-2023 End: 67-67-2516Hyhemjolprcso Acetonide 0.5 % cream Discontinued 1 APPLIC TOPICAL Twice daily 15 14 0 November 20, 2023 12:00am May 02, 2024 11:51amStart: 92-40-1039Pzdryywkbkghq Acetonide Active 1 APPLIC TOPICAL Twice daily 15 14 November 20, 2023 12:00amStart: 65-61-5059Jbusaqo -40 mg Dec, 40 mg vitamin b12 1 mg oral tablet (11 sources)Vitamin Y92Vdcvs: 83-95-1959bdxq 1 tablet by mouth once daily Cyanocobalamin (Vitamin B-12) (Vitamin B-12) 1,000 mcg tablet Active 1000 MCG PO Daily May 02, 2024 1:00am Complies with drug therapywarfarin sodium 2 mg oral tablet (5 sources)Vitamin K AntagonistStart: 08-09-2020 End: 73-56-2888owxlzxzn (COUMADIN) tablet 2 mg End: 19-88-7889ujea 2 tablets by mouth three times weeklywarfarin (COUMADIN) 2 MG tablet Take 4 mg by mouth three times a week Takes 4 mg (2 tablets) on , Sunday & Sunday 0 08/22/2020 Discontinued (Stop Taking at Discharge) warfarin (COUMADIN) daily dosing (placeholder) (1 source)Start: 90-16-4160ezmkofzb (COUMADIN) daily dosing (placeholder) Completed/Discontinued Medications MedicationDrug Class(es)DatesSig (Normalized)Sig (Original)acyclovir 0.05 mg/mg topical ointment (10 sources)Herpesvirus Nucleoside Analog DNA Polymerase Inhibitor, Herpes Simplex Virus Nucleoside Analog DNA Polymerase Inhibitor, Herpes Zoster Virus Nucleoside Analog DNA Polymerase InhibitorStart: 08-10-2023 End: 92-16-0138Jfdbsddlz 5 % ointment Discontinued 1 APPLIC TOPICAL Six times daily 15 7 0 August 10, 2023 12:00amNovemb2023 11:42amamLODIPine 5 mg oral tablet (20 sources)Dihydropyridine Calcium Channel BlockerStart: 2022 End: 76-73-3414yqoz 1 tablet by mouth once dailyAmlodipine 5 mg tablet Discontinued 1 TAB PO Daily April 11, 2023 1:00am January 02, 2024 11: 43am FreeTextSi tablet Orally Once a day; Note: Source Status: Continue; Provider: Clovis Hurt Eapixaban 2.5 mg oral tablet (20 sources)Factor Xa InhibitorStart: 04-11-2023 End: 62-18-0646apvc 1 mg by mouth twice dailyApixaban Discontinued MG PO Twice daily April 11, 2023 1:00am November 20, 2023 1:51pm FreeTextSig: as directed Orally Twice a day; Note: Source Status: Continue; Provider: Clovis Hurt EStart: 12-02-2020 End: 65-67-9182sxjz 1 mg by mouth twice dailyApixaban 2.5 mg tablet Discontinued MG PO Twice daily April 11, 2023 1:00am November 20, 2023 1:51pm FreeTextSig: as directed Orally Twice a day; Note: Source Status: Continue; Provider: Lilian EStart: 08-22-2020 End: 21-38-9021yxkl 1 tablet by mouth twice dailyapixaban (ELIQUIS) 5 MG TABS tablet Take 1 tablet by mouth 2 times daily 60 tablet 0 08/22/2020 08/22/2020 Discontinued (REORDER)atorvastatin 10 mg oral tablet (20 sources)HMG-CoA Reductase InhibitorStart: 08-04-2023 End: 97-07-1230Xzrgyucgicqw 10 mg tablet Discontinued 0 .ROUTE .COMPLEX 90 3 August 04, 2023 12:52pm October 4:28pm TAKE 1 TABLET EVERY EVENING Start: 04-11-2023 End: 94-82-9572jnpv 1 tablet by mouth once daily in the eveningAtorvastatin 10 mg tablet Discontinued 10 MG PO Every evening 90 90 3 November 02, 2023 4:27pm July 11, 2024 12:54pmStart: 88-72-5547swdqsjstobqx Oral, Daily, Refills(s) 0 Start Date: 10/24/18 Status: Orderedazithromycin 250 mg oral tablet (11 sources)Macrolide AntimicrobialStart: 05-10-2023 End: 66-49-8079Khlbwiypnsga 250 mg tablet Discontinued 250 MG PO As Directed 6 5 0 May 10, 2023 12:00am November 20, 2023 1:51pmbenazepril hydrochloride 20 mg oral tablet (20 sources)Angiotensin Converting Enzyme InhibitorStart: 04-11-2023 End: 73-82-0483qbvz 1 tablet by mouth once dailyBenazepril 20 mg tablet Discontinued 20 MG PO Daily 90 3 January 02, 2024 11:44am May 02, 2024 11:51amStart: 97-46-6603iopoajdfsa Oral, Daily, Refills(s) 0 Start Date: 10/24/18 Status: YrsvndaOkt-Pah-Krav 333-133-5 MG TABS (2 sources)Yot-Mgn-Yhln 333-133-5 MG TABS TAKE 1 TABLET DAILY. Quantity: 0 Refills: 0 Ordered: 09-Nov-2022 DO Activecalcium chloride 0.0014 meq/ml / potassium chloride 0.004 meq/ml / sodium chloride 0.103 meq/ml / sodium lactate 0.028 meq/ml injectable solution (2 sources)Start: 08-09-2020 End: 73-15-1616Qtilhzcrych, at 125 mL/hr, CONTINUOUS, Starting on Sun08/09/20 at 2130, Post-opStart: 97-88-3939hchbebed ringers infusiondoxycycline hyclate 100 mg oral capsule (19 sources)Tetracycline-class DrugStart: 11-20-2023 End: 05-67-0860wmll 1 capsule by mouth twice dailyDoxycycline Hyclate 100 mg capsule Discontinued 100 MG PO Twice daily 14 7 November 20, 2023 12:00am May 02, 2024 11:48amStart: 04-11-2023 End: 73-03-9528ymxz 1 capsule by mouth twice dailyDoxycycline Hyclate 100 mg capsule Discontinued 100 MG PO Twice daily 10 April 11, 2023 1:00am April 19, 2023 11:14am2 ml fentaNYL 0.05 mg/ml injection (2 sources)Opioid AgonistStart: 08-09-2020 End: 90-02-8960fvcukXEG (SUBLIMAZE) injection 50 mcgStart: 08-09-2020 End: 43-02-8446iwefeWYR (SUBLIMAZE) injection 25 mcggabapentin 300 mg oral capsule (1 source)Anti-epileptic AgentStart: 08-09-2020 End: 82-11-7562bqqfrxoihs (NEURONTIN) capsule 300 mghydroCHLOROthiazide 12.5 mg oral tablet (20 sources)Thiazide DiureticStart: 66-11-2244zmxx 1 mg by mouth once daily hydrochlorothiazide 12.5 mg Cap mg cap(s), Oral, Daily Start Date: 08/30/22 Status: OrderedStart: 03-01-2022 End: 58-53-4217inqx 1 tablet by mouth once daily in the morning Hydrochlorothiazide 12.5 mg tablet Discontinued 1 TAB PO Daily April 11, 2023 1:00am January 02, 2024 11:43am FreeTextSi tablet in the morning Orally Once a day; Note: Source Status: Continue; Provider: Clovis Hylton levoFLOXacin 750 mg oral tablet (11 sources)Quinolone AntimicrobialStart: 04-19-2023 End: 04-94-5421fkyh 1 tablet by mouth once dailyLevofloxacin 750 mg tablet Discontinued 750 MG PO Daily 5 5 0 April 19, 2023 1:00am May 10, 2023 8:37ammineral oil 0.15 mg/mg / petrolatum 0.83 mg/mg ophthalmic ointment (1 source)Start: 08-09-2020 End: 46-83-6363lggpiydmuu P.M. (artificial tears) ophthalmic ointmentpredniSONE 20 mg oral tablet (20 sources)Start: 04-30-2024 End: 20-47-5085Dvxaoagghf 20 mg tablet Discontinued 20 MG PO As Directed May 02, 2024 1:00am August 04, 2024 1:32pm pre cathStart: 05-10-2023 End: 55-34-3128Fgrwleqgkc 20 mg tablet Discontinued 20 MG PO Twice daily 10 5 0 May 10, 2023 12:00am May 10, 2023 12:39pm 1 tab tid w/ food x 3 days, then bid w/ food x 3 days, then qd w/ food x 3 daysStart: 04-19-2023 End: 75-98-3595jjfm 1 tablet by mouth twice dailyPrednisone 20 mg tablet Discontinued 20 MG PO Twice daily 10 5 0 May 10, 2023 12:38pm 2023 1:63wb7446 ml sodium chloride 9 mg/ml injection (7 sources)Start: 37-29-8358rhisvn chloride flush 0.9 % injection 5-40 mLStart: 08-21-2020 End: .9 % sodium chloride infusionStart: 29-14-0371sdhd 1 dose intravenously twice daily5-40 mL, Intravenous, EVERY 12 HOURS SCHEDULED (2 times per day), First dose on Sun08/09/20 at 2130For Line Patency: Peripheral IV = 5 mL; [...] parenteral nutrition, contrast media, or after obtaining bloodsample) use: Peripheral IV = 10 mL Midline or Central Line = 20 mL/lumen Post-opStart: 08-09-2020 take 25 mL intravenously every hour as bfkelq03 mL, Intravenous, at 100 mL/hr, PRN, If patient receiving piggyback infusions without ordered maintenance IV fluids or with frequent/long duration piggyback infusions, Starting on Sun08/09/20 at 2106 Administer at the same rate as the piggyback being infused. 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]Onset: 29-25-6841MrhrmnfVwixh posthemorrhagic anemia (2 sources)Anemia following acute postoperative blood loss; Translations: [Acute posthemorrhagic anemia]Onset: 63-96-7475BbjrnaobDfrwnlgg reactions (8 sources)Inflammatory dermatosis; Translations: [Dermatitis, unspecified] EpisodicAsthma (20 sources)Mild intermittent asthma; Translations: [Mild intermittent asthma, uncomplicated]Onset: 83-26-5372EcajkchIgjvjq (1 source)Asthma; Translations: [Asthma, unspecified, unspecified status]Onset: 82-17-5718Krqijryaf and vision defects (3 sources)Other visual disturbancesEpisodicCardiac and circulatory congenital anomalies (20 sources)Patent foramen ovale; Translations: [Atrial septal defect]Onset: 14-49-8278BevgnqdOikqhwb obstructive pulmonary disease and bronchiectasis (20 sources)Mucopurulent chronic bronchitis; Translations: [Mucopurulent chronic bronchitis]Onset: 05-08-2017 Resolved: 903211-99-0498AhbsfffXbjupeheimx and hemorrhagic disorders (4 sources)Hypercoagulability state; Translations: [Other primary thrombophilia] 84-07-0275PplpcjhRszljsyswyqg of device; implant or graft (13 sources)Pain due to knee joint prosthesis; Translations: [Pain due to internal orthopedic prosthetic devices, implants and grafts, initial encounter] Onset: [id number] atherosclerosis and other heart disease (5 sources)Coronary arteriosclerosis; Translations: [Atherosclerotic heart disease of [place] coronary artery without angina pectoris]Onset: 07-02-2024 40-51-4847IirlmtxKaaviqpta of lipid metabolism (20 sources)Familial hypercholesterolemia; Translations: [Hypercholesterolemia] Onset: 23-52-0374MmrneyyS Codes: Adverse effects of medical drugs (8 sources)Adverse effect of other viral vaccines, initial encounter; Translations: [Adverse effect of other viral vaccines, initial encounter] EpisodicEsophageal disorders (2 sources)Gastro-esophageal reflux disease with esophagitis; Translations: [Gastro-esophageal reflux disease with esophagitis, without bleeding]Chronic Esophageal disorders (6 sources)Esophageal disorders; Translations: [Gastro-esophageal reflux disease with esophagitis, without bleeding]Essential hypertension (20 sources)Essential hypertension; Translations: [Essential (primary) hypertension]Onset: 11-15-3199OhzldgoCmzrinucneq of prostate (20 sources)Benign prostatic hyperplasia without lower urinary tract symptoms; Translations: [Benign prostatic hypertrophy without outflow obstruction]Onset: 66-12-3057OxxwsgcHdldnykbgewcx and screening for infectious disease (16 sources)Contact with and (suspected) exposure to other viral communicable diseases; Translations: [Vaccination given]EpisodicMycoses (9 sources)Pain in toe; Translations: [Tinea unguium]53-24-6054GrfvsztrMiasdncbr of unspecified nature or uncertain behavior (10 sources)Neoplasm of uncertain behavior of skin; Translations: [Neoplasm of uncertain behavior of skin]Onset: [id number]f or stenosis of precerebral arteries (8 sources)Carotid artery occlusion; Translations: [Occlusion and stenosis of unspecified carotid artery]Onset: 40-60-3591PxzqjwpChfxjoscayzcrz (20 sources)Osteoarthritis of right knee joint; Translations: [Unilateral primary osteoarthritis, right knee]Onset: 08-09-2020 Resolved: 05-86-5950JufdrluFimiq aftercare (9 sources)Patient encounter status; Translations: [Aftercare following joint replacement surgery]ChronicOther aftercare (11 sources)Long-term current use of anticoagulant; Translations: [alf (current) use of anticoagulants]Onset: 18-68-3935DkfznkfkPmmzx aftercare (2 sources)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; Translations: [Long-term (current) use of anticoagulants]Onset: 925787-37-9546FohspdtuSvzuz aftercare (8 sources)Long-term current use of drug therapy; Translations: [Other care home (current) drug therapy]EpisodicOther aftercare (6 sources)Taking high risk medication; Translations: [Other care home (current) drug therapy]Onset: 390671-78-2209IzjscesdExhbt aftercare (3 sources)Anticoagulant effect; Translations: [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]95-43-1240FtofcasoYtmjg aftercare (1 source)Wound ; Translations: [Encounter for other specified surgical aftercare]13-55-4869AlccbbqlGqoff and ill-defined cerebrovascular disease (20 sources)Cerebral atherosclerosis; Translations: [Cerebral atherosclerosis] 05-28-2005GgcarqrBnodv and ill-defined cerebrovascular disease (10 sources)Cerebral atherosclerosis; Translations: [Cerebral atherosclerosis] ChronicOther and unspecified benign neoplasm (7 sources)Polyp of colon; Translations: [Polyp of colon]EpisodicOther and unspecified benign neoplasm (1 source)Polyp of colon; Translations: [Polyp of colon]EpisodicOther circulatory disease (20 sources)History of cerebrovascular disease; Translations: [Personal history of transient ischemic attack (TIA), and cerebral infarction without residual deficits]47-81-1632UehqufkcLobwh circulatory disease (10 sources)Personal history of transient ischemic attack (TIA), and cerebral infarction without residual deficits; Translations: [Personal history of transient ischemic attack (TIA), and cerebral infarction without residual deficits]EpisodicOther circulatory disease (13 sources)History of cerebrovascular accident without residual deficits; Translations: [Personal history of transient ischemic attack [TIA], and cerebral infarction without residual deficits]Onset: 50-76-2341MuoabibqXjfnf circulatory disease (8 sources)Cardiovascular symptoms; Translations: [Other specified symptoms and signs involving the circulatory and respiratory systems]EpisodicOther circulatory disease (2 sources)History of cerebrovascular accident; Translations: [Personal history of transient ischemic attack (TIA), and cerebral infarction without residual deficits]EpisodicOther connective tissue disease (4 sources)History of total knee arthroplasty; Translations: [Presence of right artificial knee joint]Onset: 37-84-7371AgkdgbkUjbne connective tissue disease (8 sources)Artificial knee joint present; Translations: [Presence of right artificial knee joint]ChronicOther connective tissue disease (4 sources)Presence of left artificial knee joint; Translations: [Knee joint replacement]Onset: 924054-03-3845VejyqnsGhkyb connective tissue disease (1 source)Pain in left toe(s); Translations: [Pain in limb]26-49-7300Uolbpnmz Other connective tissue disease (1 source)Suspected respiratory disease; Translations: [Other symptoms and signs involving the nervous system]25-70-0603JifwoomtUtlbg connective tissue disease (1 source)Other symptoms and signs involving the nervous system; Translations: [Other symptoms involving nervous and musculoskeletal systems]41-01-9814Wrreaxly Other connective tissue disease (2 sources)Pain of toe of left foot; Translations: [Pain in left toe(s)] 68-77-1042DzttwzhaCdewu ear and sense organ disorders (7 sources)Sensorineural hearing loss, bilateral; Translations: [Sensorineural hearing loss, bilateral]ChronicOther ear and sense organ disorders (1 source)Sensorineural hearing loss, bilateral; Translations: [Sensorineural hearing loss, bilateral]ChronicOther ear and sense organ disorders (7 sources)Bilateral tinnitus; Translations: [Tinnitus, bilateral]EpisodicOther ear and sense organ disorders (1 source)Tinnitus, bilateral; Translations: [Tinnitus, bilateral]EpisodicOther injuries and conditions due to external causes (7 sources)History of fall; Translations: [History of falling]EpisodicOther injuries and conditions due to external causes (1 source)History of falling; Translations: [History of falling]EpisodicOther lower respiratory disease (11 sources)Cough; Translations: [Cough, unspecified]Onset: EpisodicOther nervous system disorders (7 sources)Facial nerve disorder; Translations: [Other disorders of facial nerve]EpisodicOther nervous system disorders (1 source)Other disorders of facial nerve; Translations: [Other disorders of facial nerve]EpisodicOther non-epithelial cancer of skin (2 sources)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; Translations: [Basal cell carcinoma of skin of right ear and external auricular canal]02-76-6775Kwleoipm Other non-traumatic joint disorders (8 sources)Lower limb joint arthritis; Translations: [Osteoarthrosis, unspecified whether generalized or localized, lower leg]Onset: 80-75-3871Genorfi Other non-traumatic joint disorders (2 sources)Hemarthrosis of right knee; Translations: [Hemarthrosis, right knee] Onset: 02-44-5732PigoqzvnYdzil nutritional; endocrine; and metabolic disorders (12 sources)Overweight; Translations: [Overweight]08-72-2788EdflkvjhKfshv nutritional; endocrine; and metabolic disorders (8 sources)Overweight in adulthood with body mass index of 25 or more but less than 30; Translations: [Overweight]Onset: 713960-19-3521WcezpmkpYdafs nutritional; endocrine; and metabolic disorders (1 source)Overweight; Translations: [Overweight]51-25-7583AbqjpsahUfqlh screening for suspected conditions (not mental disorders or infectious disease) (20 sources)Raised prostate specific antigen; Translations: [Elevated prostate specific antigen (PSA)]Onset: 45-48-767534562287-99-9848TasjbnioCynnedr on above:PSA: 0.74 - 01/2023, 0.75 - 01/2024Other skin disorders (4 sources)Asteatosis cutis; Translations: [Xerosis cutis]02-03-1589Fvdeujer Other upper respiratory disease (8 sources)Seasonal allergic rhinitis; Translations: [Other seasonal allergic rhinitis]Onset: 80-61-3785CgktiztApsou upper respiratory disease (7 sources)Dysphonia; Translations: [Dysphonia]EpisodicOther upper respiratory disease (1 source)Dysphonia; Translations: [Dysphonia]EpisodicOther upper respiratory infections (20 sources)Acute pharyngitis; Translations: [Acute pharyngitis due to other specified organisms]Onset: 45-49-9501WwvdrvopFclfgx media and related conditions (20 sources)Acute secretory otitis media; Translations: [Other acute nonsuppurative otitis media, right ear]Onset: 02-14-2016 Resolved: 26-93-0896EkcffjsxJmgqfqvth; thrombophlebitis and thromboembolism (8 sources)Chronic deep venous thrombosis of thigh; Translations: [Chronic venous embolism and thrombosis of deep vessels of proximal lower extremity] Onset: 80-84-6065NjmwxzfOtiotpdj codes; unclassified (2 sources)Obstructive sleep apnea syndrome; Translations: [Obstructive sleep apnea (adult) (pediatric)]00-14-3875EfkbdrwHnflyuc on above:AHI 18, SpO2 83% Retinal detachments; defects; vascular occlusion; and retinopathy (8 sources)Hypertensive retinopathy; Translations: [Hypertensive retinopathy, unspecified eye]Onset: 25-57-1485BafgzxiOkwj and subcutaneous tissue infections (7 sources)Paronychia; Translations: [Paronychia]88-77-4344NgtwuqwgGpfutdjfauh; intervertebral disc disorders; other back problems (20 sources)Lumbosacral spondylosis without myelopathy; Translations: [Lumbosacral spondylosis without myelopathy]Onset: 75-90-5366JpjwztmMyrswttkp- related disorders (8 sources)Tobacco user; Translations: [Nicotine dependence, cigarettes, in remission]ChronicUnclassified (3 sources)CONTACT W/AND (SUSP) EXPOS COVID-19; Translations: [CONTACT W/AND (SUSP) EXPOS COVID-19]Onset: 29-02-0997Acwlxhlbxuns (1 source)Asymptomatic microscopic jufazddij29-97-3116Qjipembzteum (1 source)Drug therapy zlellun23-13-9939Kyslvnfioiru (6 sources)Other specified cough; Translations: [Other specified cough]Onset: 06-06-4169Ijlzkzahlhok (1 source)Pain in joint, lower leg; Translations: [Pain in joint, lower leg] Onset: 14-90-7556Zfqxrdtgoygn (1 source)Obstructive chronic bronchitis with acute bronchitis; Translations: [Obstructive chronic bronchitiswith acute bronchitis]Onset: 05-08-2017 Unclassified (1 source)Hypertrophy (benign) of prostate without urinary obstruction and other lower urinary tract symptoms[LUTS]; Translations: [Hypertrophy (benign) of prostate without urinary obstruction and other lowerurinary tract symptoms [LUTS]]Onset: 75-87-4508Lwwjvmrkomml (1 source)Personal history of tobacco use, presenting hazards to health; Translations: [Personal history of tobacco use, presenting hazards to health] Onset: 01-23-2017 Past or Other Problems Problem ClassificationProblemDateDocumented DateEpisodic/ChronicBacterial infection; unspecified site (8 sources)Bacterial infectious disease; Translations: [Bacterial infection, unspecified, in conditions classified elsewhere and of unspecified site]Onset: 93-80-3450EkedlujfMysctous; including migraine (3 sources)Headache; including migraineMalaise and fatigue (8 sources)Malaise and fatigue; Translations: [Other malaise and fatigue]Onset: 67-74-6965IewdvnczVjtqk aftercare (4 sources)Other care home (current) drug therapy; Translations: [OTH PRACTICE CLINICIAN CURRENT DRUG THERAPY]Onset: 97-68-2059MowfavnuRneti aftercare (5 sources)Encounter for therapeutic drug level monitoring; Translations: [ENC THERAPEUTC DRUG LEVL MONITORING]Onset: 54-26-5237KqqwgkksMmcqx aftercare (7 sources)Therapeutic drug level - finding; Translations: [Encounter for therapeutic drug level monitoring]Onset: 44-91-7634IdxiupgjAxjas connective tissue disease (7 sources)Cramp in limb; Translations: [Cramp of limb]Onset: 53-97-2157Wlawhplr Other connective tissue disease (7 sources)Plantar fascial fibromatosis; Translations: [Plantar fascial fibromatosis]Onset: 34-32-8238XvkciemnLveub connective tissue disease (1 source)Cramp of limb; Translations: [Cramp of limb]Onset: 78-36-8799Gudkbxxf Other connective tissue disease (1 source)Plantar fascial fibromatosis; Translations: [Plantar fascial fibromatosis]Onset: 75-52-3336XhfhoqihOgbbq hematologic conditions (8 sources)Secondary polycythemia; Translations: [Secondary polycythemia]Onset: 51-93-6719LiflsccbZzvbz lower respiratory disease (18 sources)Dyspnea; Translations: [Other forms of dyspnea]Onset: 05-08-2017 09-74-0312JpzqonwzDhsav lower respiratory disease (1 source)Other forms of dyspnea; Translations: [Other forms of dyspnea]Onset: 81-87-0644HppndgkoSzkgf lower respiratory disease (5 sources)Shortness of breath; Translations: [Shortness of breath]Onset: 75-79-9254IbaiuerlEwyth non-traumatic joint disorders (7 sources)Arthralgia of the lower leg; Translations: [Pain in joint, lower leg] Onset: 42-03-4469CfiudoqxBlldg nutritional; endocrine; and metabolic disorders (16 sources)Body mass index 25-29 - overweight; Translations: [Body mass index 28.0-28.9, adult]Onset: 38-86-5668FutzpakrTbvbl nutritional; endocrine; and metabolic disorders (2 sources)Body mass index (BMI) 27.0-27.9, adult; Translations: [Body mass index (BMI) 27.0-27.9, adult]Onset: 32-89-0968QdsyzgskUbsqcdrwa; thrombophlebitis and thromboembolism (20 sources)H/O: Deep vein thrombosis; Translations: [Personal history of other venous thrombosis and embolism]Onset: 39-82-6171YjgeogkyWpflsdrw codes; unclassified (8 sources)Requires influenza virus vaccination; Translations: [Need for prophylactic vaccination and inoculation, Influenza]Onset: 81-86-6378Hbhhtiwe Residual codes; unclassified (7 sources)Family history of malignant neoplasm of gastrointestinal tract; Translations: [Family history of malignant neoplasm of digestive organs]Onset: 69-05-0147MilxjsxeObfrvcbe codes; unclassified (1 source)Family history of malignant neoplasm of digestive organs; Translations: [Family history of malignant neoplasm of digestive organs]Onset: 15-69-8397XljnnmgdNpjpqmgxz and history of mental health and substance abuse codes (20 sources)Ex-smoker; Translations: [History of tobacco use]Onset: 01-23-2017 95-47-5748EwsmovxdIiycxvi on above:quit 1965;Spondylosis; intervertebral disc disorders; other back problems (20 sources)Thoracic and lumbosacral neuritis; Translations: [Thoracic or lumbosacral neuritis or radiculitis, unspecified]Onset: 07-22-2014 Resolved: 53-97-2195KudonqvnMtybbhoez cerebral ischemia (2 sources)Transient cerebral ischemia; Translations: [Personal history of transient ischemic attack [TIA], and cerebral infarction without residual deficits]Onset: 43-77-6352Zxnnhihsookt (1 source)CONTACT W/AND (SUSP) EXPOS COVID-19; Translations: [CONTACT W/AND (SUSP) EXPOS COVID-19]Onset: 69-45-3529Saoyxqvgjttm (8 sources)Long-term current use of drug therapy; Translations: [Long-term (current) use of other medications]Onset: 72-06-0537Tbbmtobdqaby (8 sources)Chronic venous embolism and thrombosis of other specified veins; Translations: [Chronic venous embolism and thrombosis of other specified veins] Onset: 40-52-0666Nlddtanglott (4 sources)Onset: Results Test NameValueInterpretationReference RangeFacilityNo Panel Informationon 61-48-9289Scqgxhs obtained: written [place] Protocol: Procedure explained and questions answered to patient or proxy's satisfaction: Yes Test results available and properly labeled: Yes Pathology report reviewed: Yes External notes reviewed: Yes Photo or diagram used for site identification: Yes Site/side marked: Yes [facility] Anticoagulation: Is the patient taking prescription anticoagulant and/or aspirin prescribed/recommended by a physician? Yes (Eliquis) Was the antico[facility] regimen [facility]? No Anesthesia: Anesthesia method: local infiltration Local anesthetic: lidocaine 1% WITH epi and sodium bicarbonate Procedure Details: Timeout: pre-procedure verification complete Procedure Prep: patient was prepped and draped in usual sterile fashion Prep type: chlorhexidine Biopsy accession number: [id number] Biopsy lab: [facility] Date of biopsy: 08/18/2024 Frozen section biopsy performed: Yes Specimen debulked: No Pre-Op diagnosis: basal cell carcinoma BCC subtype: nodular MohsAIQ Surgical site (if tumor spans multiple areas, please select predominant area): ear Surgery side: right Surgical site (from skin exam): Right [place] Pre-operative length (cm): 1 Pre-operative width (cm): 0.8 Indications for Mohs surgery: anatomic location where tissue conservation is critical and ill-defined borders Mohs Appropriate Use Criteria Score: 9 Details of micrographic surgery: Mohs accession number: [id number] Micrographic Surgery Details: Post-operative length (cm): 1.5 Post-operative width (cm): 1.2 Number of Mohs stages: 4 Post surgery depth of defect comment: To cartilage Stage 1 Comments: The area was prepped with Hibiclens, draped in a sterile fashion, and infiltrated with local anesthetic. Sterile technique was used throughout the procedure. The marked area of clinical tumor with a small rim of clinically normal surrounding skin was removed using Mohs technique with beveled edges. Hash fletcher were placed for orientation of the specimen. Hemostasis was achieved with electrodessication. After hemostasis, the defect was measured and recorded, a temporary sterile dressing was placed over the wound, and the patient was escorted to the waiting area. The specimen was oriented, mapped, and if necessary, divided into sections. A Mohs map was prepared. The specimen was placed in a labeled morelia dish and was taken to the Mohs lab where it was chromacoded and processed. Mohs sections were prepared with serial tissue sections, stained, and evaluated by Dr. Holm for interpretation of deep and peripheral margins. The Mohs map was marked accordingly. Amount of lidocaine used: 1.0 cc Estimated blood loss: minimal Defect size: 1.1 x 1.0 cm Number of blocks per stage: 1 Number of positive blocks: 1 Tumor features identified on Mohs section: basal carcinoma Tumor features identified on Mohs section comment: nodular pattern Depth of tumor invasion after stage: dermis Stage 2 Comments: The patient returned to the procedure room, the dressing was removed, the tumor area was re-prepped and draped, and anesthesia was assessed and augmented as necessary. A layer of tissue around the positive margin(s) was removed, and the tissue was oriented, mapped, and processed in an identical fashion as for Stage 1. Hemostasis was achieved and dressing placed as in Stage 1. The patient was escorted to the waiting area. As with Stage 1, Mohs sections were prepared with serial tissue sections, stained, and evaluated by Dr. Holm for interpretation of deep and peripheral margins. The Mohs map was updated. Assistants: Fabiano Tomas LPN Amount of lidocaine used: 0.8 cc Estimated blood loss: minimal Defect size: 1.4 x 1.0 cm Number of blocks: 1 Number of positive blocks: 1 Tumor features identified on Mohs section: basal carcinoma Tumor features identified on Mohs section comment: nodular pattern Depth of tumor invasion after stage comment: to cartilage Stage 3 Comments: The patient returned to the procedure room, the dressing was removed, the tumor area was re-prepped and draped, and anesthesia was assessed and augmented as necessary. A layer of tissue around the positive margin(s) was removed, and the tissue was oriented, mapped, and processed in an identical fashion as for Stage 1. Hemostasis was achieved and dressing placed as in Stage 1. The patient was escorted to the waiting area. As with Stage 1, Mohs sections were prepared with serial tissue sections, stained, and evaluated by Dr. Holm for interpretation of deep and peripheral margins. The Mohs map was updated. Assistants: Fabiano Tomas LPN Amount of lidocaine used: 1.2 cc Estimated blood loss: <1.0 cc Defect size: 1.5 x 1.1 cm Number of blocks: 1 Number of positive blocks: 1 Tumor fea (more content not included)...[facility] Cholesterol in LDL Calc [Mass/Vol]Ordered By: Teo Johnson on 09-23-2024 Cholesterol in LDL [Mass/Vol]81.6 mg/dLOhiohealth Grove City Methodist HospitalComment on above:<100 mg/dl YLYAZGK104-512 mg/dl NEAR OR ABOVE UBUQSRX474-810 mg/dl BORDERLINE GXJV689-755 mg/dl HIGH>190 mg/dl VERY HIGHCholesterol in VLDL Calc [Mass/Vol]Ordered By: Teo Johnson on 98-16-5099Skioyoogacr in VLDL [Mass/Vol] 16.4 mg/dLOhiohealth Grove City Methodist HospitalLaboratory - Chemistry and Chemistry - challengeOrdered By: Teo Johnson on 10-91-8989TVR [Catalytic activity/Vol] 22 U/W00-54WubnrkvsjOhiohealth Grove City Methodist HospitalAST [Catalytic activity/Vol]16 U/L 15-37[facility] HospitalCholesterol [Mass/Vol]146 mg/dL<=200 [facility] HospitalCholesterol in HDL [Mass/Vol]48 mg/dL40-60 [facility] HospitalComment on above:> or =60 mg/dl - LOW CARDIOVASCULAR RISK<40 mg/dl - HIGH CARDIOVASCULAR RISKTriglyceride [Mass/Vol]82 mg/dL<=150[facility] Hospital Limaerum or plasma total cholesterol/high density lipoprotein (HDL) cholesterol mass ratOrdered By: Teo Johnson on 21-13-7523Ksdcrfqsrym.total/Cholesterol in HDL [Mass ratio]3.0 {ratio}[facility] HospitalComment on above:3.3 - 4.4 LOW RISK4.4 - 7.1 AVERAGE RISK7.1 - 11.0 MODERATE RISK>11.0 HIGH RISKNo Panel Informationon 35-60-2820Hzca of biopsy: tangential Informed consent: discussed and [...] Photo taken Amount of lidocaine used: 0.4 [facility] HealthcareBasophils Auto (Bld) [#/Vol]Ordered By: Teo Johnson on 41-73-2445Ghmutyube (Bld) [#/Vol] Automated basophil count0.0-0.2FBarberton Citizens HospitalBasophils/100 WBC Auto (Bld)Ordered By: Teo Johnson on 04-92-8111Tawgrnijq/100 WBC (Bld) Automated basophil %.Ohiohealth Grove City Methodist HospitalBlood Urea Nitrogenon 36-24-8123Fckz nitrogen [Mass/Vol]24 mg/dLNormal7-25The [facility] Physician GroupComment on above:Performed By: #### CREAT, LIPID, CBC, PP, LYTES, BUN #### [facility] [address] [place] [address] USACarbon dioxide, total [Moles/volume] in Serum or Plasma Ordered By: Teo Johnson on 31-84-6012CL2 [Moles/Vol]Carbon dioxide, total [Moles/volume] in Serum or Votzwb83.0-31.0[facility] Chloride [Moles/volume] in Serum or PlasmaOrdered By: Teo Johnson on 18-18-4383Jdntvkfy [Moles/Vol]Chloride [Moles/volume] in Serum or Mwchyq32-017 [facility] HospitalCholesterol [Mass/volume] in Serum or Plasma Ordered By: Teo Johnson on 47-63-0698Zcykprlxhqw [Mass/Vol]Cholesterol [Mass/volume] in Serum or Ejeqvp002-343EscluldboOhiohealth Grove City Methodist HospitalComment on above:Chol less than 200 mg/dl low riskChol 201-239 mg/dl borderline riskChol 240 mg/dl and greater high riskCholesterol in HDL [Mass/volume] in Serum or PlasmaOrdered By: Teo Johnson on 95-58-2632Ivxfdblanrc in HDL [Mass/Vol]Serum or plasma high density lipoprotein (HDL) cholesterol uaunkxrxeio20-48OlotdpcekOhiohealth Grove City Methodist HospitalComment on above:HDL CHOL ATP-III CLASSIFICATION Cardiovascular RiskHDL > or equal to 60 mg/dL LOWHDL < 40 mg/dL HIGHCholesterol in LDL Calc [Mass/Vol]Ordered By: Teo Johnson on 51-59-6863Iqkezhcveto in LDL [Mass/Vol]Cholesterol in LDL [Mass/volume] in Serum or Plasma by calculation High0-100[facility] HospitalComment on above:LDL ATP III CLASSIFICATIONLDL less than 100 mg/dL OptimalLDL 100-129 mg/dL Near or above lrngcmtLEG436-665 mg/dL Borderline highLDL 160-189 mg/dL HighLDL greater than 189 mg/dL Very highCholesterol in VLDL Calc [Mass/Vol]Ordered By: Teo Johnson on 70-94-5352Lcusuzshtwl in VLDL [Mass/Vol]Cholesterol in VLDL [Mass/volume] in Serum or Plasma by calculationOhiohealth Grove City Methodist HospitalCoagulation Profileon 70-94-7382yJQN Coag (Bld) [Time]29.9 dWrrcxt26.1-36.5The [facility] Physician GroupComment on above:Result Comment: A hematocrit value greater than 55% may lead to inaccurate results in coagulation testing. Patients having hematocrit values >55% require a special collection tube for coagulation studies. Please contact the laboratory at [phone] for redraw instructions. PERFORMED BY: [place] [address] PATHOLOGIST ENROLLED NURSE BONNIE QUINTANILLA M.D.Performed By: #### CBC, CRP, DDIMER, ESR #### [facility] [address] [place] [address] USAINR Coag (PPP) [Relative time]1.1 {INR}NormalThe [facility] Point Physician GroupComment on above:Result Comment: INR Therapeutic Range A) Pre- and [...] patients with mechanical heart valves: 3 - 4.5Performed By: #### CBC, CRP, DDIMER, ESR #### [facility] [address] [place], [place] [id number] USAPT Coag (PPP) [Time]12.6 sNormal9.0-12.9The [facility] Physician GroupComment on above:Result Comment: A hematocrit value greater than 55% may lead to inaccurate results in coagulation testing. Patients having hematocrit values >55% require a special collection tube for coagulation studies. Please contact the laboratory at [phone] for redraw instructions.Performed By: #### CBC, CRP, DDIMER, ESR #### [place] [address] USAComplete Blood Count Auto Diffon 79-52-1729Bpyvrfzoh (Bld) [#/Vol]0.1 10*3/uLNormal0.0-0.2The [facility] Physician GroupComment on above: Result Comment: PERFORMED BY: [place] [address] PATHOLOGIST ENROLLED NURSE BONNIE QUINTANILLA M.D.Performed By: #### CREAT, LIPID, CBC, PP, LYTES, BUN #### [place] [address] USABasophils/100 WBC (Bld)1.3 %Normal.The [facility] Physician GroupComment on above:Performed By: #### CREAT, LIPID, CBC, PP, LYTES, BUN #### [place] [address] USAEosinophils (Bld) [#/Vol]0.4 10*3/uLNormal0.0-0.45The [facility] Physician GroupComment on above:Performed By: #### CREAT, LIPID, CBC, PP, LYTES, BUN #### [place] [address] USAEosinophils/100 WBC (Bld)7.9 %Normal.The [facility] Physician GroupComment on above:Performed By: #### CREAT, LIPID, CBC, PP, LYTES, BUN #### [place] [address] USAErythrocyte distribution width (RBC) [Ratio]12.8 %Normal 12.0-14.8The [facility] Physician GroupComment on above:Performed By: #### CREAT, LIPID, CBC, PP, LYTES, BUN #### [place] [address] USAHematocrit (Bld) [Volume fraction]41.6 %Grdotz03.8-50.0The [facility] Physician GroupComment on above:Performed By: #### CREAT, LIPID, CBC, PP, LYTES, BUN #### [place] [address] USAHemoglobin (Bld) [Mass/Vol]14.7 g/kOOetknd59.0-17.0The [facility] Physician GroupComment on above:Performed By: #### CREAT, LIPID, CBC, PP, LYTES, BUN #### [place] [address] USALymphocytes (Bld) [#/Vol]1.7 10*3/uLNormal1.00-4.8The [facility] Physician GroupComment on above:Performed By: #### CREAT, LIPID, CBC, PP, LYTES, BUN #### [place] [address] USALymphocytes/100 WBC (Bld)32.7 %Normal.The [facility] Physician GroupComment on above:Performed By: #### CREAT, LIPID, CBC, PP, LYTES, BUN #### [address]H (RBC) [Entitic mass]33.0 odAmppuw07.5-35.2The [facility] Physician GroupComment on above:Performed By: #### CREAT, LIPID, CBC, PP, LYTES, BUN #### [address]V (RBC) [Entitic vol]93.7 dBBbrplu01.5-101The [facility] Physician GroupComment on above:Performed By: #### CREAT, LIPID, CBC, PP, LYTES, BUN #### [place] [address] USAMean Corpuscular HGB Conc35.3 g/rZHzsmex66.5-35.6The [facility] Physician GroupComment on above:Performed By: #### CREAT, LIPID, CBC, PP, LYTES, BUN #### [place] [address] USAMonocytes (Bld) [#/Vol]0.6 10*3/uLNormal0.0-0.8The [facility] Physician GroupComment on above:Performed By: #### CREAT, LIPID, CBC, PP, LYTES, BUN #### [place] [address] USAMonocytes/100 WBC (Bld)12.0 %Normal.The [facility] Physician GroupComment on above:Performed By: #### CREAT, LIPID, CBC, PP, LYTES, BUN #### [place] [address] USANeutrophils (Bld) [#/Vol]2.4 10*3/uLNormal1.8-7.7The [facility] Physician GroupComment on above:Performed By: #### CREAT, LIPID, CBC, PP, LYTES, BUN #### [place] [address] USANeutrophils/100 WBC (Bld)46.1 %Normal.The [facility] Physician GroupComment on above:Performed By: #### CREAT, LIPID, CBC, PP, LYTES, BUN #### [place] [address] USANRBC%0.2 /100{WBC}Normal0-0.5The [facility] Comment on above:Performed By: #### CREAT, LIPID, CBC, PP, LYTES, BUN #### [place] [address] USAPlatelet mean volume (Bld) [Entitic vol]8.4 fLNormal 6.6-10.1The [facility] Physician GroupComment on above:Performed By: #### CREAT, LIPID, CBC, PP, LYTES, BUN #### [place] [address] USAPlatelets (Bld) [#/Vol]139 10*3/vUHrf204-127Qqg [facility] Physician GroupComment on above:Performed By: #### CREAT, LIPID, CBC, PP, LYTES, BUN #### [place] [address] USARBC (Bld) [#/Vol]4.45 10*6/uLNormal3.90-5.60The [facility] Physician GroupComment on above:Performed By: #### CREAT, LIPID, CBC, PP, LYTES, BUN #### [place] [address] USAWBC (Bld) [#/Vol]5.3 10*3/uLNormal4.1-10.5The [facility] Physician GroupComment on above:Performed By: #### CREAT, LIPID, CBC, PP, LYTES, BUN #### [place] [address] USACreatinineon 94-20-3109Pxajtmwbus [Mass/Vol]1.04 mg/dL Normal0.70-1.30The [facility] Physician GroupComment on above:Performed By: #### CBC, CRP, DDIMER, ESR #### [place] [address] USAGFR/1.73 sq M.predicted MDRD (S/P/Bld) [Vol rate/Area] mL/min/{1.73_m2}NormalThe [facility] Physician GroupComment on above:Performed By: #### CBC, CRP, DDIMER, ESR #### [place] [address] USACreatinine [Mass/volume] in Serum or PlasmaOrdered By: Teo Johnson on 46-93-1058Oupepsgdit [Mass/Vol]Creatinine [Mass/volume] in Serum or Plasma0.70-1.30Ohio[facility] Grove City Methodist HospitalECG 12 lead ECGon 05-25-6475DUX 12 lead ECGW[facility] [place] [address] [place] [address] Electrocardiograph Report Signed Patient: Yanelis Noriega MR#: [id number] : 1945 Acct:[id number] Age/Sex: 79 / M ADM Date: 05/02/24 Loc: PS Room: Type: [facility] Attending Dr: Teo Johnson MD Ordering Provider: Teo Johnson MD, [facility] Date of Service: 05/02/2409/19/1006 ECG/ECG 12 lead [...] rhythm Normal ECG Confirmed by Brianna Martinez ([id number]) on 05/02/2024 9:12:37 PM Referred By: Electronically Signed By: Brianna Martinez Transcribed By: MUS Signed By Brianna Martinez MD [address] [place] [address] Physician GroupElectrolyteson 35-70-0200Lhrnf gap [Moles/Vol]6.0 mmol/LNormal6.0-15.0The [facility] Physician [facility] Of GreenvilleComment on above:Performed By: #### CREAT, LIPID, CBC, PP, LYTES, BUN #### [place] [address] USAChloride [Moles/Vol]106 mmol/ILbnhwy41-408Zas [facility] Physician GroupComment on above:Performed By: #### CREAT, LIPID, CBC, PP, LYTES, BUN #### [facility] [address] [place] [address] USACO2 [Moles/Vol]29.5 mmol/SUsvvhc56.0-31.0The [facility] Physician GroupComment on above:Performed By: #### CREAT, LIPID, CBC, PP, LYTES, BUN #### [facility] [address] [place] [address] USAPotassium [Moles/Vol]4.5 mmol/LNormal3.5-5.1The [facility] Physician GroupComment on above:Performed By: #### CREAT, LIPID, CBC, PP, LYTES, BUN #### [address] [place] [address] USASodium [Moles/Vol]137 mmol/ESjmyoi667-177Aab [facility] Physician GroupComment on above:Performed By: #### CREAT, LIPID, CBC, PP, LYTES, BUN #### [facility] [address] [place] [address] USAEosinophils Auto (Bld) [#/Vol]Ordered By: Teo Johnson on 83-36-7834Tgzisknfhvg (Bld) [#/Vol]Automated eosinophil count0.0-0.45 [facility] HospitalEosinophils/100 WBC Auto (Bld)Ordered By: Teo Johnson on 58-74-1127Fefhunnrjnk/100 WBC (Bld)Automated eosinophil %. [facility] HospitalErythrocyte distribution width Auto (RBC) [Ratio]Ordered By: Teo Johnson on 58-17-4361Gbbtapgwjer distribution width (RBC) [Ratio]Erythrocyte distribution width [Ratio] by Automated count12.0-14.8 [facility] HospitalHematocrit Auto (Bld) [Volume fraction]Ordered By: Teo Johnson on 64-81-8201Btladbmbho (Bld) [Volume fraction]Hematocrit [Volume Fraction] of Blood by Automated count38.8-50.0[facility] HospitalHemoglobin [Mass/volume] in BloodOrdered By: Teo Johnson on 05-02-2024 Hemoglobin (Bld) [Mass/Vol]Hemoglobin [Mass/volume] in Blood13.0-17.0[facility] Methodist HospitalINR in Platelet poor plasma by Coagulation assayOrdered By: Teo Johnson on 55-01-7052XCC Coag (PPP) [Relative time]INR in Platelet poor plasma by Coagulation assayOhiohealth Grove City Methodist HospitalComment on above:INR Therapeutic Range A) Pre- and Peroperative OAT started two weeks before surgery. NOT HIP SURGERY: 1.5 - 2.5 HIP SURGERY: 2 - 3B) Primary and secondary prevention of venous THROMBOSIS: 2 - 3C) Active venous thrombosis, pulmonary embolismand prevention of recurrent venous thrombosis: 2 - 3D) Preve ntion of arterial thromboembolismincluding patients with mechanical heart valves: 3 - 4.5Leukocytes [#/volume] corrected for nucleated erythrocytes in Blood by Automated counOrdered By: Teo Johnson on 96-81-8690RXI corrected for nucl RBC Auto (Bld) [#/Vol]Leukocytes [#/volume] corrected for nucleated erythrocytes in Blood by Automated coun4.1-10.5FBarberton Citizens Hospital Lipid Panelon 26-40-4636Hiwfkxajbut [Mass/Vol]190 mg/oMItfqow643-743Lkx [facility] Physician GroupComment on above:Result Comment: Chol less than 200 mg/dl low risk Chol 201-239 mg/dl borderline risk Chol 240 mg/dl and greater high riskPerformed By: #### CBC, CRP, DDIMER, ESR #### [facility] [address] [place] [address] USACholesterol in HDL [Mass/Vol]53 mg/rPJfbvhp07-42Woh [facility] Physician GroupComment on above:Result Comment: HDL CHOL ATP-III CLASSIFICATION Cardiovascular Risk HDL > or equal to 60 mg/dL LOW HDL < 40 mg/dL HIGHPerformed By: #### CBC, CRP, DDIMER, ESR #### [facility] [address] [place] [address] USACholesterol.total/Cholesterol in HDL [Mass ratio]3.6 {ratio}Normal<5.0The [facility] General HospitalComment on above:Result Comment: PERFORMED BY: [place] [address] PATHOLOGIST ENROLLED NURSE BONNIE QUINTANILLA M.D.Performed By: #### CBC, CRP, DDIMER, ESR #### [facility] [address] [place] [address] USALDL Cholesterol,Xutytougxo059 mg/dLHigh0-100The [facility] Physician GroupComment on above:Result Comment: LDL ATP III CLASSIFICATION LDL less than 100 mg/dL Optimal LDL 100-129 mg/dL Near or above optimal LDL 130-159 mg/dL Borderline high LDL 160-189 mg/dL High LDL greater than 189 mg/dL Very highPerformed By: #### CBC, CRP, DDIMER, ESR #### [facility] [address] [place] [address] USATriglyceride w/Mpivbl214 mg/dLNormal0-149[facility] Physician GroupComment on above:Result Comment: TRIG ATP III CLASSIFICATION TRIG less than 150 mg/dL Normal TRIG 150-199 mg/dL Borderline high TRIG 200-500 mg/dL High TRIG greater than 500 mg/dL Very high Standard traceable to the Center for Disease Conrtrol and Prevention (CDC) test method.Performed By: #### CBC, CRP, DDIMER, ESR #### [facility] [address] [place] [address] USAVLDL PLPHLKRJKOD46 mg/dLNormHialeah Hospital Physician GroupComment on above:Performed By: #### CBC, CRP, DDIMER, ESR #### [facility] [address] [place] [id number] USALymphocytes Auto (Bld) [#/Vol]Ordered By: Teo Johnson on 19-02-1775Jhazxlwdkzm (Bld) [#/Vol]Lymphocytes [#/volume] in Blood by Automated count1.00-4.8[facility] HospitalLymphocytes/100 WBC Auto (Bld)Ordered By: Teo Johnson on 52-28-7125Gbzlhadbbud/100 WBC (Bld) Lymphocytes/100 leukocytes in Blood by Automated count.[facility] Auto (RBC) [Entitic mass]Ordered By: Teo Johnson on 66-83-1047TZP (RBC) [Entitic mass]MCH [Entitic mass] by Automated count27.5-35.2 [facility] CenterHC Auto (RBC) [Mass/Vol]Ordered By: Teo Johnson on 91-07-1756WFBS (RBC) [Mass/Vol]MCHC [Mass/volume] by Automated count 32.5-35.6FHighland District HospitalV Auto (RBC) [Entitic vol]Ordered By: Teo Johnson on 02-18-9820UMA (RBC) [Entitic vol]MCV [Entitic volume] by Automated count83.5-101Ohio[facility] HospitalMonocytes Auto (Bld) [#/Vol]Ordered By: Teo Johnson on 69-53-4381Pahuyfzdc (Bld) [#/Vol]Automated blood monocyte count0.0-0.8[facility] HospitalMonocytes/100 WBC Auto (Bld)Ordered By: Teo Johnson on 06-98-3751Bfywwrwha/100 WBC (Bld) Automated monocyte %.Ohio[facility] HospitalNeutrophils Auto (Bld) [#/Vol]Ordered By: Teo Johnson on 18-94-9589Bbtswdfadvb (Bld) [#/Vol] Neutrophils [#/volume] in Blood by Automated count1.8-7.7FBarberton Citizens HospitalNeutrophils/100 WBC Auto (Bld)Ordered By: Teo Johnson on 32-39-5055Oqudqcxxjdw/100 WBC (Bld)Automated neutrophil %.[facility] HospitalNo Panel InformationOrdered By: Teo Johnson on 05-02-2024 Estimated GFR (CKD-EPI)> 60.0 mL/MinOhiohealth Grove City Methodist HospitalPharmacy Creatinine Clearance (ChemN/[facility] HospitalNucleated erythrocytes [Presence] in Blood by Automated countOrdered By: Teo Johnson on 25-30-5824Zogcyjxse RBC Auto Ql (Bld)Nucleated erythrocytes [Presence] in Blood by Automated count0-0.5FBarberton Citizens HospitalPlatelet mean volume Auto (Bld) [Entitic vol]Ordered By: Teo Johnson on 67-02-5898Qdjusozr mean volume (Bld) [Entitic vol]Platelet mean volume [Entitic volume] in Blood by Automated count6.6-10.1FBarberton Citizens HospitalPlatelets Auto (Bld) [#/Vol]Ordered By: Teo Johnson on 79-91-6415Baqufnsbx (Bld) [#/Vol]Platelets [#/volume] in Blood by Automated zzmtsLha883-858BrgzrzlseOhiohealth Grove City Methodist HospitalPotassium [Moles/volume] in Serum or PlasmaOrdered By: Teo Johnson on 72-13-5051Mfkghsaqy [Moles/Vol]Potassium [Moles/volume] in Serum or Plasma 3.5-5.1FBarberton Citizens HospitalProthrombin time (PT)Ordered By: Teo Johnson on 74-62-4151NK Coag (PPP) [Time]Prothrombin time (PT)9.0-12.9[facility] HospitalComment on above:A hematocrit value greater than 55% may lead to inaccurate results in coagulation testing. Patientshaving hematocrit values >55% require a special collection tube for coagulation studies. Please c ontact the laboratory at [phone] for redraw instructions.RBC Auto (Bld) [#/Vol]Ordered By: Teo Johnson on 16-12-3523BXC (Bld) [#/Vol]Erythrocytes [#/volume] in Blood by Automated count3.90-5.60[facility] Serum or plasma anion gap determinationOrdered By: Teo Johnson on 05-02-2024 Anion gap [Moles/Vol]Serum or plasma anion gap determination6.0-15.0S[facility] Hospital Limaerum or plasma total cholesterol/high density lipoprotein (HDL) cholesterol mass ratOrdered By: Teo Johnson on 05-02-2024 Cholesterol.total/Cholesterol in HDL [Mass ratio]Serum or plasma total cholesterol/high density lipoprotein (HDL) cholesterol mass rat<5.0[facility] Hospital Limaodium [Moles/volume] in Serum or PlasmaOrdered By: Teo Johnson on 42-66-2353Koqwtv [Moles/Vol]Sodium [Moles/volume] in Serum or Njaazs900-832AonfimcdaOhiohealth Grove City Methodist HospitalTriglyceride [Mass/volume] in Serum or PlasmaOrdered By: Teo Johnson on 30-79-2107Hzumgmuhshrv [Mass/Vol] Triglyceride [Mass/volume] in Serum or Plasma0-149[facility] HospitalComment on above:TRIG ATP III CLASSIFICATIONTRIG less than 150 mg/dL NormalTRIG 150-199 mg/dL Borderline highTRIG 200-500 mg/dL High TRIG greater than 500 mg/dL Very highStandard traceable to the Center for Disease Conrtrol and Prevention (CDC) test method.Urea nitrogen [Mass/volume] in Serum or Plasma Ordered By: Teo Johnson on 51-56-9954Hwus nitrogen [Mass/Vol]Urea nitrogen [Mass/volume] in Serum or Plasma7-25[facility] HospitalWBC Auto (Bld) [#/Vol]Ordered By: Teo Johnson on 69-19-2177BUI (Bld) [#/Vol]Leukocytes [#/volume] in Blood by Automated count4.1-10.5FBarberton Citizens Hospital aPTT in Platelet poor plasma by Coagulation assayOrdered By: Teo Johnson on 52-14-8523uKDM Coag (PPP) [Time]Activated partial thromboplastin time (aPTT) in platelet poor plasma by coagulation a25.1-36.5FBarberton Citizens Hospital Comment on above:A hematocrit value greater than 55% may lead to inaccurate results in coagulation testing. Patientshaving hematocrit values >55% require a special collection tube for coagulation studies. Please contact the laboratory at [phone] for redraw instructions.CT CARDIAC SCORING WO IV CONTRASTon 02-52-3821RW CARDIAC SCORING WO IV CONTRASTInterpreted By: Cipriano Dior, ADDENDUM: Technical: The following [...] PM -------- ORIGINAL REPORT -------- Dictation workstation: [id number] Interpreted By: Cipriano Gutierrez, STUDY: CT CARDIAC SCORING WO IV CONTRAST; 04/29/2024 7:31 pm INDICATION: Signs/Symptoms:dyspnea. COMPARISON: None. ACCESSION NUMBER(S): [id number] ORDERING CLINICIAN: TEO JOHNSON TECHNIQUE: Using prospective [...] barclay al. JACC 2014 (http://dx.doi.org/10.1016/j.j acc.2015.08.035) Reading Assistant Therapy Aide: Dr. Cipriano Gutierrez, Date: 04/29/2024 8:19 pm Signed by: Cipriano Gutierrez 04/29/2024 8:20 PM Dictation workstation: [id number] Hardin Memorial HospitalCT for calcium scoring WO contrast and CTA W contrast IV Heart and coronary arterieson 60-28-9895Ttpzsfjf by Radha Dior MD on 04/29/2024 8:25 PM EST Interpreted [...] PM -------- ORIGINAL REPORT -------- Dictation workstation: [id number] Liverpool City Hospital Work Phone: [phone]. Coronary artery calcium score of 2306*. 2. [...] link below [email or web address] Yamila barclay al. JACC 2015 (http://dx.doi.org/10.1016/j.j acc.2015.08.035) Reading Assistant Therapy Aide: Dr. Cipriano Gutierrez, Date: 04/29/2024 8:19 pm Signed by: Cipriano Gutierrez 04/29/2024 8:20 PM Dictation workstation: [id number] By: Cipriano Gutierrez, STUDY: CT CARDIAC SCORING WO IV CONTRAST; 04/29/2024 7:31 pm INDICATION: Signs/Symptoms:dyspnea. COMPARISON: None. ACCESSION NUMBER(S): [id number] ORDERING CLINICIAN: TEO JOHNSON TECHNIQUE: Using prospective [...] left pulmonary artery are normal in size. Cipriano Varela DO / Radha Dior MD - 04/29/2024 Interpreted By: Cipriano Gutierrez, STUDY: CT CARDIAC SCORING WO IV CONTRAST; 04/29/2024 7:31 pm INDICATION: Signs/Symptoms:dyspnea. COMPARISON: None. ACCESSION NUMBER(S): [id number] ORDERING CLINICIAN: TEO JOHNSON TECHNIQUE: Using prospective [...] link below [email or web address]://[email or web address]/RiskScore.aspx Yamila barclay al. JACC 2015 (http://dx.doi.org/10.1016/j.j acc.2015.08.035) Reading Assistant Therapy Aide: Dr. Cipriano Gutierrez, Date: 04/29/2024 8:19 pm Signed by: Cipriano Gutierrez 04/29/2024 8:20 PM Dictation workstation: [id number] [facility] Work Phone: Radiology Study observation (narrative)[facility] Work Phone: CT for calcium scoring WO contrast and CTA W contrast IV Heart and coronary arteriesOrdered By: Radha Dior on 04-29-2024 [facility] Work Phone: STRESS TEST ONLYon 65-91-1503BGQWNY TEST [address], [address] [place] [address] Exercise Stress Test Patient Name: YANELIS NORIEGA Ordering Provider: [id number] JOHNSON Study Date: 04/08/2024 Reading Physician: Jessa Johnson MD, FAC MRN/PID: [id number] Supervising Physician: Jessa Johnson MD, FACC Fellow: Date of /Age: 11 1945 Fellow: years Gender: M Nurse: Sveta Trinh RN Admission Status: Cell Tender: ANA Height: 170.18 cm Technologist: Weight: 82.10 kg Additional Staff: BSA: 1.94 m2 BMI: 28.35 kg/m2 Patient Location: Study Type: STRESS TEST ONLY Diagnosis/ICD: Shortness of breath-R06.02 Indication: Dyspnea CPT Codes: Stress Test Interpretation-36801; Stress Test Supervision-[id number] Falls Risk: Low: Patient has low risk [...] heart rate recovery and achievement of Ordonez treadmillscore of 6+ which is favorable for this patient's age. 2. Adequate level of stress achieved. [id number] Teo Johnson MD, [facility] Electronically signed on 04/09/2024 at 7:50:39 AM Final [facility] HospitalBasophils Auto (Bld) [#/Vol]on 79-87-9892Xqydawxee (Bld) [#/Vol]Automated basophil count0.0-0.1 [facility] HospitalBasophils/100 WBC Auto (Bld)on 02-09-2024 Basophils/100 WBC (Bld)Automated basophil %0.2-2.0[facility] HospitalCholesterol in LDL Calc [Mass/Vol]on 95-97-3533Sudcjcxhocl in LDL [Mass/Vol]Cholesterol in LDL [Mass/volume] in Serum or Plasma by calculation [facility] HospitalComment on above:<100 mg/dl DINYSMZ127-772 mg/dl NEAR OR ABOVE ZMEPFCQ511-368 mg/dl BORDERLINE FMHT733-077 mg/dl HIGH>190 mg/dl VERY HIGHCholesterol in VLDL Calc [Mass/Vol]on 69-96-9025Vwgyhnvzych in VLDL [Mass/Vol]Cholesterol in VLDL [Mass/volume] in Serum or Plasma by calculationOhiohealth Grove City Methodist HospitalEosinophils/100 WBC Auto (Bld)on 69-88-8447Okvyaefhota/100 WBC (Bld)Automated eosinophil %High0.9-7.0[facility] HospitalErythrocyte distribution width Auto (RBC) [Ratio]on 25-96-5593Bnitacmtxez distribution width (RBC) [Ratio]Erythrocyte distribution width [Ratio] by Automated count11.0-15.0[facility] Estimated glomerular filtration rate (GFR) non- Americanon 02-09-2024 GFR/1.73 sq M.predicted among non-blacks MDRD (S/P/Bld) [Vol rate/Area]Estimated glomerular filtration rate (GFR) non->=60 mL/min/1.73m 2 [facility] HospitalGlobulin Calc (S) [Mass/Vol]on 02-09-2024 Globulin (S) [Mass/Vol]Serum globulin measurement by calculation (mass/volume) [facility] HospitalHematocrit Auto (Bld) [Volume fraction]on 79-10-4726Hcthqhenre (Bld) [Volume fraction]Hematocrit [Volume Fraction] of Blood by Automated count42.0-54.0[facility] HospitalHemoglobin [Mass/volume] in Bloodon 14-36-8397Rnudribtee (Bld) [Mass/Vol]Hemoglobin [Mass/volume] in Blood14.0-18.0[facility] HospitalLaboratory - Chemistry and Chemistry - challengeon 20-01-7880Wksxchf [Mass/Vol]3.7 g/dL 3.4-5.0[facility] HospitalALP [Catalytic activity/Vol]65 U/L46-116 [facility] HospitalALT [Catalytic activity/Vol]20 U/L16-63 [facility] HospitalAST [Catalytic activity/Vol]17 U/L15-37 [facility] HospitalBilirubin [Mass/Vol]1.0 mg/dL0.2-1.0[facility] HospitalCalcium [Mass/Vol]9.0 mg/dL8.5-10.1FBarberton Citizens HospitalChloride [Moles/Vol]107 mmol/T75-669RwhfjonwiOhiohealth Grove City Methodist HospitalCholesterol [Mass/Vol]212 mg/dLHigh<=200[facility] Cholesterol in HDL [Mass/Vol]59 mg/jD89-10OnnylcnyzOhiohealth Grove City Methodist Hospital Comment on above:> or =60 mg/dl - LOW CARDIOVASCULAR RISK<40 mg/dl - HIGH CARDIOVASCULAR RISKCO2 [Moles/Vol]30.0 mmol/L21.0-32.0[facility] HospitalCreatinine [Mass/Vol]1.04 mg/dL0.70-1.30[facility] GFR/1.73 sq M.predicted MDRD (S/P/Bld) [Vol rate/Area]mL/min/{1.73_m2}>=60 mL/min/1.73m 2FBarberton Citizens HospitalGlucose [Mass/Vol]112 mg/dLHigh 74-106[facility] HospitalPotassium [Moles/Vol]5.1 mmol/L3.5-5.1 [facility] HospitalProtein [Mass/Vol]6.8 g/dL6.4-8.2FMansfield Hospitalodium [Moles/Vol]144 mmol/D074-420GodncsiepOhiohealth Grove City Methodist HospitalTriglyceride [Mass/Vol]136 mg/dL<=150[facility] HospitalUrea nitrogen [Mass/Vol]21.0 mg/dLHigh7.0-18.0[facility] HospitalUrea nitrogen/Creatinine [Mass ratio]20.2 mg/mgOhiohealth Grove City Methodist HospitalLaboratory - Hematology and Cell countson 50-36-4742Vbzhjxaq granulocytes/100 WBC (Bld)0.2 %0.0-0.5FBarberton Citizens Hospital Leukocytes [#/volume] corrected for nucleated erythrocytes in Blood by Automated counon 68-00-7647DYJ corrected for nucl RBC Auto (Bld) [#/Vol]Leukocytes [#/volume] corrected for nucleated erythrocytes in Blood by Automated coun 4.0-11.0[facility] HospitalLymphocytes Auto (Bld) [#/Vol]on 71-52-2989Pwyobtyzsot (Bld) [#/Vol]Lymphocytes [#/volume] in Blood by Automated count1.2-3.8[facility] HospitalLymphocytes/100 WBC Auto (Bld)on 62-94-6254Gacghceegde/100 WBC (Bld)Lymphocytes/100 leukocytes in Blood by Automated count20.5-60.0[facility] CenterH Auto (RBC) [Entitic mass]on 58-91-9074MSV (RBC) [Entitic mass]MCH [Entitic mass] by Automated count 25.9-34.0[facility] HospitalMCHC Auto (RBC) [Mass/Vol]on 82-75-3054BXQK (RBC) [Mass/Vol]MCHC [Mass/volume] by Automated count29.9-35.2 [facility] HospitalMCV Auto (RBC) [Entitic vol]on 44-71-5693TOB (RBC) [Entitic vol]MCV [Entitic volume] by Automated cqrvzZlvf08.0-94.0[facility] HospitalMonocytes Auto (Bld) [#/Vol]on 51-03-3082Flkexdtpt (Bld) [#/Vol]Automated blood monocyte count0.3-0.8[facility] Monocytes/100 WBC Auto (Bld)on 17-71-4657Wswuhrtdn/100 WBC (Bld)Automated monocyte %1.7-12.0[facility] HospitalNeutrophils Auto (Bld) [#/Vol]on 06-67-6045Niiqgudmyaj (Bld) [#/Vol]Neutrophils [#/volume] in Blood by Automated count1.4-6.5FBarberton Citizens HospitalNeutrophils/100 WBC Auto (Bld)on 13-62-8903Mugqvguzxkv/100 WBC (Bld)Automated neutrophil %Low43.0-75.0 [facility] HospitalNo Panel Informationon 83-10-6681Zeyytwmdzrt # (Auto)0.6 10 3/uL0.0-0.7FBarberton Citizens HospitalImmature Granulocyte # (Auto)0.01 10 3/uL0.00-0.03[facility] HospitalProstate Specific Antigen Screen0.75 ng/mL<=4.00[facility] HospitalPlatelet mean volume Auto (Bld) [Entitic vol]on 79-46-9026Qvrukiua mean volume (Bld) [Entitic vol]Platelet mean volume [Entitic volume] in Blood by Automated count9.5-13.5 [facility] HospitalPlatelets Auto (Bld) [#/Vol]on 02-09-2024 Platelets (Bld) [#/Vol]Platelets [#/volume] in Blood by Automated countLow 150-450[facility] HospitalRBC Auto (Bld) [#/Vol]on 68-76-5280BLG (Bld) [#/Vol]Erythrocytes [#/volume] in Blood by Automated countLow4.70-6.10 [facility] Limaerum or plasma albumin/globulin mass ratioon 47-44-0611Tkysyoa/Globulin [Mass ratio]Serum or plasma albumin/globulin mass ratioSCCI Hospital Limaerum or plasma anion gap determinationon 75-32-9076Mlzmg gap [Moles/Vol]Serum or plasma anion gap determinationSCCI Hospital Limaerum or plasma total cholesterol/high density lipoprotein (HDL) cholesterol mass shaista 72-38-3829Usnwubvkgah.total/Cholesterol in HDL [Mass ratio]Serum or plasma total cholesterol/high density lipoprotein (HDL) cholesterol mass ratOhiohealth Grove City Methodist HospitalComment on above:3.3 - 4.4 LOW RISK4.4 - 7.1 AVERAGE RISK7.1 - 11.0 MODERATE RISK>11.0 HIGH RISK Automated basophil %Ordered By: Yogesh Jacob on 04-02-1676Uvnkrmfho/100 WBC (Bld)0.8 %Normal.[facility] HospitalComment on above:Performed By: #### CBC, CRP, DDIMER, ESR #### [facility] [address] [place] [address] USAAutomated basophil countOrdered By: Yogesh Jacob on 71-37-3618Ccugxhrxf (Bld) [#/Vol]0.0 10*3/uLNormal0.0-0.2FBarberton Citizens HospitalComment on above:Performed By: #### CBC, CRP, DDIMER, ESR #### [facility] [address] [place] [address] USAAutomated blood monocyte countOrdered By: Yogesh Jacob on 99-75-6253Moyzmopmy (Bld) [#/Vol]0.7 10*3/uLNormal0.0-0.8[facility] HospitalComment on above:Performed By: #### CBC, CRP, DDIMER, ESR #### [place] [address] USAAutomated eosinophil %Ordered By: Yogesh Jacob on 13-18-3903Dlqjgeevpfo/100 WBC (Bld)5.8 %Normal.[facility] Comment on above:Performed By: #### CBC, CRP, DDIMER, ESR #### [place] [address] USAAutomated eosinophil countOrdered By: Yogesh Jacob on 33-36-6690Dlvoeottghg (Bld) [#/Vol]0.3 10*3/uLNormal0.0-0.45[facility] HospitalComment on above:Performed By: #### CBC, CRP, DDIMER, ESR #### [place] [address] USAAutomated monocyte %Ordered By: Yogesh Jacob on 58-81-6877Dczxxriqb/100 WBC (Bld)12.2 %Normal.[facility] Comment on above:Performed By: #### CBC, CRP, DDIMER, ESR #### [place] [address] USAAutomated neutrophil %Ordered By: Yogesh Jacob on 48-28-4523Xaonizejinx/100 WBC (Bld)49.4 %Normal.[facility] HospitalComment on above:Performed By: #### CBC, CRP, DDIMER, ESR #### [facility] [address] [place] [address] USAC reactive protein [Mass/volume] in Serum or PlasmaOrdered By: Yogesh Jacob on 22-30-1521IUJ [Mass/Vol]< 0.5 mg/dL0.0-0.5FBarberton Citizens HospitalC-Reactive Proteinon 36-07-6666OEH [Mass/Vol]mg/LNormal 0.0-0.5The [facility] Physician GroupComment on above:Result Comment: PERFORMED BY: [address] [place] [address] PATHOLOGIST ENROLLED NURSE DOLORES RICHARDS M.D.Performed By: #### CBC, CRP, DDIMER, ESR #### [facility] [address] [place] [address] USAComplete Blood Count Auto Diffon 91-47-5609Igzt Corpuscular HGB Conc35.1 g/kROsripz71.5-35.6The [facility] Physician GroupComment on above:Performed By: #### CBC, CRP, DDIMER, ESR #### [facility] [address] [place] [address] USANRBC%0.1 /100{WBC}Normal0-0.5[facility] Physician [facility] Comment on above:Performed By: #### CBC, CRP, DDIMER, ESR #### [place] [address] USAD-Dimer High Sensitivityon 92-72-2869P-Dimer High Ndzgemrwqqd222 ng/mLNormal0-243The [facility] Physician [facility] GreenvilleComment on above: Result Comment: The reference range [...] coagulation studies. Please contact the laboratory at [phone] for redraw instructions. PERFORMED BY: [place] [address] PATHOLOGIST ENROLLED NURSE DOLORES RICHARDS M.D.Performed By: #### CBC, CRP, DDIMER, ESR #### [place] [id number] USAErythrocyte Sedimentation Rateon 69-18-1044XMJ (Bld) [Velocity]10 mm/hNormal0-19The [facility] Physician GroupComment on above:Result Comment: PERFORMED BY: [place] [address] PATHOLOGIST ENROLLED NURSE DOLORES RICHARDS M.D.Performed By: #### CBC, CRP, DDIMER, ESR #### [place] [address] USAErythrocyte distribution width [Ratio] by Automated count Ordered By: Yogesh Jacob on 53-17-1418Ofrbkojzymv distribution width (RBC) [Ratio]12.8 %Znssqa32.0-14.8[facility] HospitalComment on above: Performed By: #### CBC, CRP, DDIMER, ESR #### [place] [address] USAErythrocyte sedimentation rate by Photometric method Ordered By: Yogesh Jacob on 50-02-7618UZI Photometric method (Bld) [Velocity] 10 mm/hr0-19[facility] HospitalErythrocytes [#/volume] in Blood by Automated countOrdered By: Yogesh Jacob on 76-84-4930GPS (Bld) [#/Vol]4.35 10*6/uLNormal3.90-5.60[facility] HospitalComment on above: Performed By: #### CBC, CRP, DDIMER, ESR #### [place] [address] USAFibrin D-dimer [Presence] in Platelet poor plasma by Latex agglutinationOrdered By: Yogesh Jacob on 98-71-8103Azcpoh D-dimer LA Ql (PPP)233 ng/mL0-243[facility] HospitalComment on above:The reference range for D-dimer is <243 ng/mL D-dimer units.D-dimer results must be used in conjunction with a clinicalpretest probability (PTP) assessment model for deep veinthrombosis (DVT) and pulmonary embolism (PE). Results <230ng/mL d- dimer units can be used as a negative predictor inpatients with low or moderate probability for DVT/PE.Results above the exclusion threshold of 230 ng/ml D- dimerunits for DVT/PE may indicate the need for furtherdiagnostic testing.D- Dimer can be increased in hospitalized patients due toco-morbid conditions.A hematocrit value greater than 55% may lead to inaccurate results in coagulation testing. Patients having hematocrit values >55% require a special collection tube for coagulation studies. Please contact the laboratory at [phone] for redraw instructions.Hematocrit [Volume Fraction] of Blood by Automated count Ordered By: Yogesh Jacob on 69-32-4061Auybhvxqlp (Bld) [Volume fraction]40.7 %Flpkzo81.8-50.0[facility] HospitalComment on above:Performed By: #### CBC, CRP, DDIMER, ESR #### [facility] [address] [place] [address] USAHemoglobin [Mass/volume] in BloodOrdered By: Yogesh Jacob on 97-50-4655Pscqlftcfd (Bld) [Mass/Vol]14.3 g/uXCfenxh99.0-17.0 [facility] HospitalComment on above:Performed By: #### CBC, CRP, DDIMER, ESR #### [facility] [address] [place] [address] USALeukocytes [#/volume] corrected for nucleated erythrocytes in Blood by Automated counOrdered By: Yogesh Jacob on 70-65-8900EHZ corrected for nucl RBC Auto (Bld) [#/Vol]5.3 10*3/uL4.1-10.5FBarberton Citizens HospitalLeukocytes [#/volume] in Blood by Automated countOrdered By: Yogesh Jacob on 49-57-1501OSA (Bld) [#/Vol]5.3 10*3/uLNormal4.1-10.5FBarberton Citizens HospitalComment on above:Performed By: #### CBC, CRP, DDIMER, ESR #### [facility] [address] [place] [address] USALymphocytes [#/volume] in Blood by Automated countOrdered By: Yogesh Jacob on 39-02-0732Erkugcgbogh (Bld) [#/Vol]1.7 10*3/uLNormal 1.00-4.8[facility] HospitalComment on above:Performed By: #### CBC, CRP, DDIMER, ESR #### [place] [address] USALymphocytes/100 leukocytes in Blood by Automated count Ordered By: Yogesh Jacob on 80-59-7094Krhrzrmqouh/100 WBC (Bld)31.8 %Normal. [facility] HospitalComment on above:Performed By: #### CBC, CRP, DDIMER, ESR #### [address] [Entitic mass] by Automated countOrdered By: Yogesh Jacob on 93-09-7986POP (RBC) [Entitic mass]32.9 gzGblqcc72.5-35.2FBarberton Citizens HospitalComment on above:Performed By: #### CBC, CRP, DDIMER, ESR #### [address] Auto (RBC) [Mass/Vol]Ordered By: Yogesh Jacob on 58-07-8060GNDI (RBC) [Mass/Vol]35.1 g/dL32.5-35.6FBarberton Citizens HospitalMCV [Entitic volume] by Automated countOrdered By: Yogesh Jacob on 72-78-4390AHJ (RBC) [Entitic vol]93.7 eGEdkgsd58.5-101[facility] HospitalComment on above:Performed By: #### CBC, CRP, DDIMER, ESR #### [place] [address] USANeutrophils [#/volume] in Blood by Automated countOrdered By: Yogesh Jacob on 50-92-4096Jrpqooujoxi (Bld) [#/Vol]2.6 10*3/uLNormal 1.8-7.7FBarberton Citizens HospitalComment on above:Performed By: #### CBC, CRP, DDIMER, ESR #### [facility] [address] [place] [address] USANucleated erythrocytes [Presence] in Blood by Automated countOrdered By: Yogesh Jacob on 73-21-2258Wicuwlkgl RBC Auto Ql (Bld)0.1 /100{WBC}0-0.5FBarberton Citizens HospitalPlatelet mean volume [Entitic volume] in Blood by Automated countOrdered By: Yogesh Jacob on 09-12-2023 Platelet mean volume (Bld) [Entitic vol]9.0 fLNormal6.6-10.1FBarberton Citizens HospitalComment on above:Performed By: #### CBC, CRP, DDIMER, ESR #### [facility] [address] [place] [address] USAPlatelets [#/volume] in Blood by Automated countOrdered By: Yogesh Jacob on 24-92-1144Hfvatypae (Bld) [#/Vol]127 10*3/xJNfz321-210 [facility] HospitalComment on above:Performed By: #### CBC, CRP, DDIMER, ESR #### [facility] [address] [place] [id number] USAXR knee LT 3V - NOT FOR ER USEon 74-76-5507BZ knee LT 3V - NOT FOR ER USEWADSW[facility] [address] [place] [address] XRay Report Signed Patient: Yanelis Noriega MR#: [id number] : 1945 Acct:[id number] Age/Sex: 78 / M ADM Date: 09/12/23 Loc: [facility] Room: Type: [facility] Attending Dr: Yogesh Jacob II, MD [...] Dictation Location: RADIO-PC-08 Transcribed By: ARLYN 09/12/23 1539 Dictated By: Reji Alvarado DO 09/12/23 1538 Signed By: 09/12/23 1539[facility] ER Physician GroupXR pelvis 1-2Von 22-04-4888RT pelvis 1-2VWADSWORTH-[facility] [address] [place] [address] XRay Report Signed Patient: Yanelis Noriega MR#: [id number] : 1945 Acct:[id number] Age/Sex: 78 / M ADM Date: 09/12/23 Loc: [facility] Room: Type: [facility] Attending Dr: Yogesh Jacob II, MD [...] 3:38 PM Dictation Location: RADIO-PC-08 Transcribed By: ARLYN 09/12/23 1538 Dictated By: Reji Alvarado DO 09/12/23 1537 Signed By: 09/12/23 1538[facility] ER Physician GroupAlanine Aminotransferaseon 84-65-1876HUU [Catalytic activity/Vol]18 U/TAhprda06-38 U/KOALA.CH Other Basic Metabolic Panelon 07-07-2577Keyke gap [Moles/Vol]10.8 mmol/LNAwesomi Other Calcium [Mass/Vol]8.8938797 mg/dLNormal8.5-10.1 mg/dL [place] [employer] Other Chloride [Moles/Vol]105 mmol/RNclayt26-112 mmol/KOALA.CH Other CO2 [Moles/Vol]30.51224727 mmol/YMbmdhw97.0-32.0 mmol/KOALA.CH Other Creatinine [Mass/Vol]1.64544162 mg/dLNormal0.70-1.30 mg/dLTCAS Online [employer] Other Glucose [Mass/Vol]151 mg/oPMbnj85-487 mg/dLEpigami Other Potassium [Moles/Vol]4.50278078 mmol/LNormal3.5-5.1 mmol/KOALA.CH Other Sodium [Moles/Vol]142 mmol/NDhmcve732-820 mmol/KOALA.CH Other Urea nitrogen [Mass/Vol]18.6483057 mg/dLNormal7.0-18.0 mg/dLEpigami Other Urea nitrogen/Creatinine [Mass ratio]17.0 mg/mgEpigami Other Basic Metabolic Panelsee noteMineral Springs [employer] Other Basic Metabolic Panel>60>=60[place] [employer] Other Lipid Panelon 91-48-8797Xatfnvodhei [Mass/Vol]178 mg/dL<=200 mg/dLNosaint joseph hospital of [facility] [employer] Other Cholesterol in HDL [Mass/Vol]53 mg/yMHmgowp95-21 mg/dL [place] [employer] Other Triglyceride [Mass/Vol]174 mg/dLHigh<=150 mg/dLNosaint joseph hospital of [facility] [employer] Other Lipid Panel91.0 mg/dLMineral Springs [employer] Other Lipid Panel34.8 mg/dLNosaint joseph hospital of [facility]irk[facility] [employer] Other Lipid Panel3.4Nosaint joseph hospital of [facility] [employer] Other PSA SCREENINGon 82-36-0610PWK SCREENING0.74 ng/mL <=4.00 ng/mLNBrooks Memorial Hospital Reaction Other US Heart TransthoracicOrdered By: Teo Johnson on 78-19-4947YI A4C EF62.2[facility] Work Phone: [facility] Work Phone: US Heart Transthoracicon 12-25-[address], [place] [address] TRANSTHORACIC ECHOCARDIOGRAM REPORT Patient Name: YANELIS NORIEGA Lyndon Physician: [id number] Teo Johnson MD, [facility] Study Date: 12/21/2022 Ordering Provider: [id number] TEO JOHNSON MRN/PID: [id number] Fellow: Nurse: Sveta Trinh RN Date of /Age: 11 1945 / 77 years Cell Tender: Osiris Barba RD, T Gender: M Additional Staff: Height: 170.18 cm Admit Date: Weight: 82.56 kg Admission Status: BSA: 1.94 m2 Department Location: [facility] Blood Pressure: 154 /86 mmHg Study Type: TRANSTHORACIC ECHO (TTE) LIMITED Diagnosis/ICD: Abnormal findings on diagnostic imaging of heart and coronary circulation-R93.1; Cerebral Infarction, unspecified-I63.9 Indication: HTN, Hyperlipidemia, Former Smoker, History of CVA, History of DVT, Overweight, Lacunar Infarct, Daily ETOH CPT Codes: Echo Limited-07707 Study Detail: The following Echo studies were [...] left atrial septum appears to be aneurysmal andthe bubble study demonstrated PFO with zlzpa-ba-fkfq shunt. Right Ventricle: The right ventricle is [...] well visualized. The pulmonic valve regurgitation was notassessed. Pericardium: There is no pericardial effusion noted. Aorta: The aortic root is normal. Systemic Veins: The inferior vena cava appears to be of normal size. CONCLUSIONS: 1. Left ventricular systolic function is normal with a 60-65% estimated ejection fraction. 2. The left atrial septum appears to be aneurysmal and the bubble study demonstrated PFO with anscu-or-cjyy shunt. 3. Aortic valve appears abnormal. QUANTITATIVE [...] Normal Ranges: LVOT Diameter: 2.40 cm (1.8-2.4cm) [id number] Teo Johnson MD, [facility] Electronically signed on 12/25/2022 at 10:42:09 AM Final Teo Juarez MD - 12/25/[address], [address], [place] [address] TRANSTHORACIC ECHOCARDIOGRAM REPORT Patient Name: YANELIS NORIEGA Lyndon Physician: [id number] Johnson MD, [facility] Study Date: 12/21/2022 Ordering Provider: Jessa JOHNSON MRN/PID: [id number] Fellow: Nurse: Sveta Trinh RN Date of /Age: 11 1945 / 77 years Cell Tender: Osiris Barba RD, RVT Gender: M Additional Staff: Height: 170.18 cm Admit Date: Weight: 82.56 kg Admission Status: BSA: 1.94 m2 Department Location: [facility] Blood Pressure: 154 /86 mmHg Study Type: TRANSTHORACIC ECHO (TTE) LIMITED Diagnosis/ICD: Abnormal findings on diagnostic imaging of heart and coronary circulation-R93.1; Cerebral Infarction, unspecified-I63.9 Indication: HTN, Hyperlipidemia, Former Smoker, History of CVA, History of DVT, Overweight, Lacunar Infarct, Daily ETOH CPT Codes: Echo Limited-31720 Study Detail: The following Echo studies were [...] left atrial septum appears to be aneurysmal andthe bubble study demonstrated PFO with cimxt-ll-ziaa shunt. Right Ventricle: The right ventricle is [...] well visualized. The pulmonic valve regurgitation was notassessed. Pericardium: There is no pericardial effusion noted. Aorta: The aortic root is normal. Systemic Veins: The inferior vena cava appears to be of normal size. CONCLUSIONS: 1. Left ventricular systolic function is normal with a 60-65% estimated ejection fraction. 2. The left atrial septum appears to be aneurysmal and the bubble study demonstrated PFO with oulsj-tc-prul shunt. 3. Aortic valve appears abnormal. QUANTITATIVE [...] Normal Ranges: LVOT Diameter: 2.40 cm (1.8-2.4cm) [id number] Teo Johnson MD, FACC Electronically signed on 12/25/2022 at 10:42:09 AM Final [facility] Work Phone: Office Visit (Cardiology)on 41-97-4075Jftrni-up visit Diagnoses/Problems Assessed Hypertension (401.9) (I10) Hyperlipidemia [...] Bubble Study; Status:Hold For - Scheduling; Requested for:15Tpr0678; Laterality : Bilateral History of stroke, Hyperlipidemia, Hypertension IO EKG Electrocardiogram- 12 Lead; Status:Complete; Done: 50Ghe0428 Overweight with body mass index (BMI) of 28 to 28.9 in adult Healthy Weight Tips; Status:Complete; Done: 31Jsy4745 Some eating tips that can help you lose weight.; Status:Complete; Done: 50Laz4045 SocHx: Former smoker Tobacco Use Screening; Status:Complete; Done: 59Kye2060 Patient Instructions Please bring all medicines, vitamins, [...] neurological symptoms. He had transthoracic echocardiogram in [facility] which she read possible PFO. There was [...] I did review the echo report from [facility] and the other imaging studies. Assessment/recommendations: 1?reported PFO on an outside echocardiogram with [...] 20 MG Oral TabletTAKE 1 TABLET DAILY. Gnv-Vnq-Lwzq 333-133-5 MG TABSTAKE 1 TABLET DAILY. Eliquis 2.5 MG Oral TabletTake 1 tablet twice daily hydroCHLOROthiazide 12.5 MG Oral TabletTAKE 1 TABLET DAILY. Vitamin B-12 1000 MCG Oral TabletTAKE 1 TABLET DAILY DIRECTED. Vitamin C ER 1000 MG TBCRTAKE 1 TABLET DAILY. Vitamin D-3 25 MCG (1000 UT) Oral CapsuleTAKE DIRECTED. Allergies Medication Bactrim Rash; Recorded By: Geetha Alves; 11/09/2022 9:46:25 AM sulfamethoxazole-trimethoprim Rash; Updated By: Geetha lAves; 11/09/2022 9:46:55 AM NonMedication IV Contrast Dye [...] of breath. Gastrointestinal: no (more content not included)...NormalUH TouchworksTobacco Screening.on 33-48-2553Imszk depression screening assessmentNoTrios Health Gongpingjia 250 DO Work Phone: Fall risk assessmenta) No falls within the last year [facility] 250 DO Work Phone: Tobacco use status CPHSb) [facility] [employer] 250 DO Work Phone: [place] 10-35-8425Fneoyuu [id number]#1.00CD:127[facility] [id number]#1.00CD:[address] [place], [place] [address]Ambulatory Visit Summaryon 97-33-7150Sysapuvgwf Visit Summary YANELIS NORIEGA :1945 Visit Date:08/30/2022 Ambulatory Visit Instructions Your Diagnosis BPH without urinary obstruction Anticoagulated Tests Performed Urnls Dip Stick Auto w/o Microscopy POC 86243 Your Care Team Attending Physician - Clarisa Ibarra MD Primary Care Physician - BLU VELEZ DO This Is Your Medications List Contact prescribing physician if questions or concerns amlodipine (amLODIPine 5 mg Tab) apixaban (Eliquis 2.5 mg oral tablet) atorvastatin benazepril hydrochlorothiazide (hydrochlorothiazide 12.5 mg Cap) Procedures Performed Cystoscopy (12/25/2019), Arthroscopy of knee, Colonoscopy, Esophagogastroduodenoscopy, Herniorrhaphy, Knee replacement, Repair of rotator cuff of shoulder. Discharge Vitals Heart Rate (Peripheral) 68 Blood Pressure 125/77 Height 172 cm Height 68 in Weight 82.5 kg Weight 181.5 lb BMI 27.89 What to do next You Need to Schedule the Following Appointments Follow Up with Clarisa Ibarra MD, URL, URO When: Comments: PRN Where: Medications [...] Urnls Dip Stick Auto w/o Microscopy POC 43776 (08/30/2022) Bilirubin Urine Dipstick - Negative Blood Urine Dipstick - Negative Glucose Urine Dipstick - Negative Ketones Urine Dipstick - Negative Leukocytes Urine Dipstick - Negative Nitrite Urine Dipstick - Negative Protein Urine Dipstick - Negative Specific [place] Urine Dipstick - >=1.030 Urine Appearance Urine [...] test used to s (more content not included)...[facility] HospitalPatient Education on 01-77-8671Mhbentb EducationUrology Benign Prostatic Hyperplasia Benign prostatic hyperplasia (BPH) [...] urine that may remain in your bladder afteryou finish urinating. ? A digital rectal exam. [...] this procedure, a tool is inserted through theopening at the tip of the penis (urethra). [...] procedure uses radio frequencies to destroy and removea small amount of prostate tissue. ? Interstitial laser coagulation (ILC). This procedure uses a laser to destroy and remove a small amount of prostate tissue. ? Transurethral electrovaporization (TUVP). This procedure uses electrodes to destroy and remove a small amount of prostate tissue. ? Prostatic urethral lift. This procedure inserts an implant to push the lobes of the prostate awayfrom the urethra. Follow these instructions at home: ? Take cdae-hco-xaedcaa and prescription medicines only as told by [...] from the medicine (more content not included)... [facility] HospitalUrology Office/Clinic Noteon 10-26-6172Ihlxjfm Office/Clinic NoteChief Complaint 8 month follow up w/ PSA [...] (N40.0: Benign prostatic hyperplasia without lower urinary tractsymptoms) IPSS 1 UA today is clear/neg no [...] changes in urinary symptoms. 2. Anticoagulated (Z79.01: alf (current) use of anticoagulants) Eliquis 2.5 mg [...] History Cystoscopy (12/25/2019), Arthroscopy of knee, Colonoscopy, Esophagogastroduodenoscopy, Herniorrhaphy, Knee replacement, Repair of rotator cuff [...] Immunizations Vaccine Date Status Comments SARS-CoV-2 (COVID-19) mRNAMUL.ORD![id number] 11/15/2021 Recorded SARS-CoV-2 (COVID-19) mRNA BNT-162b2 vax [...] Urine Dipstick: Negative (08/30/22 (more content not included)...Normal [facility] HospitalComment on above:Result Comment: Electronically Signed By: Clarisa Ibarra MD\.br\Date and Time Signed: 08/30/22 10:47 EDT\.br\Electronically Co-Signed By: Jenny Britt\.br\Date and Time Co- Signed: 08/30/22 10:06 EDTLab Reportson [id number] Reports [id number]#[id number]:127NormalFisher Medstar Harbor HospitalCovid-19 PCR (CVDTB)on 68-91-0223GGKF-CoV-2 (COVID-19) RNA MEREDITH+probe Ql (Unsp spec)Not detectedNormalNOT DETECTEDThe [facility] CenterComment on above: Result Comment: This test is not yet approved or cleared by the [place] FDA. When there are no FDA-approved or cleared tests available, and other criteria are met, FDA can make tests available under an emergency access mechanism called an Emergency Use Authorization (EUA). The EUA for this test is supported by the [place] of Health and Human Service's (HHS's) declaration [...] of clinical signs and symptoms consistent with SARS-CoV-2.Performed By: #### CVDTBH #### [facility] [address] [address] [address] Tisha Orozco AUTO DIFFon [id number] #0.1 103/ulNormal0.0-0.1The [facility] Hospitalment on above:Performed By: #### CBC #### [facility] [address] [place] [address] Dr. Tisha JohnBasophils/100 WBC (Bld)1.3 %Normal0.2-2.0The [facility] Comment on above:Performed By: #### CBC #### [facility] [address] [place] [address] Dr. Tisha Connor #0.5 103/ulNormal0.0-0.7The [facility]itt[facility] Medical CenterComment on above: Performed By: #### CBC #### [facility] [address] [place] [address] Dr. Tisha Nicolasosinophils/100 WBC (Bld)8.8 %Critically high0.9-7.0The [facility]itt[facility] Medical CenterComment on above:Performed By: #### CBC #### [facility] [address] [place] [address] Dr. Tisha Nicolasrythrocyte distribution width (RBC) [Ratio]11.9 %Gncgfk64.0-15.0 [facility] Centerment on above:Performed By: #### CBC #### [facility] [address] [place] [address] Dr. Tisha JohnHematocrit (Bld) [Volume fraction]40.5 %Critically low42.0-54.0 The [facility] Hospitalment on above:Performed By: #### CBC #### [facility] [address] [place] [address] Dr. Tisha JohnHemoglobin (Bld) [Mass/Vol]14.5 g/zJYmwqbt46.0-18.0The [facility] Hospitalment on above:Performed By: #### CBC #### [facility] [address] [place] [address] Dr. Tisha Talbert #0.02 10e3/ulNormal0.00-0.03The [facility] Medical CenterComment on above:Performed By: #### CBC #### [facility] [address] [address] [address] Tisha Talbert %0.4 %Normal0.0-0.5The [facility] Medical CenterComvon [facility] on above: Performed By: #### CBC #### [facility] [address] [address] [address] Tisha Gardner #1.8 103/ulNormal1.2-3.8The [facility] Medical CenterComment on above:Performed By: #### CBC #### [facility] [address] [place] [address] Dr. Tisha Johnhocytes/100 WBC (Bld)32.2 %Afdvvs75.5-60.0The [facility] CenterComvon [facility] on above:Performed By: #### CBC #### [facility] [address] [place] [address] Dr. Tisha Claudio DIFF REQNONormalThe [facility] Medical CenterComment on above: Performed By: #### CBC #### [facility] [address] [place] [address] Dr. Tisha Dickinson (RBC) [Entitic mass]32.1 omIfeypq12.9-34.0The [facility] on above:Performed By: #### CBC #### [facility] [address] [place] [address] Dr. Tisha Nolasco (RBC) [Mass/Vol]35.8 g/dLCritically high29.9-35.2The [facility] Hospitalment on above:Performed By: #### CBC #### [facility] [address] [place] [address] Dr. Tisha Nolasco (RBC) [Entitic vol]89.6 mZHhfqyl30.0-94.0The [facility] Medical CenterComment on above:Performed By: #### CBC #### [facility] [address] [place] [address] Dr. Tisha Interiano #0.6 103/ulNormal0.3-0.8The [facility] Medical CenterComment on above:Performed By: #### CBC #### [facility] [address] [address] [address] Tisha Irizarryocytes/100 WBC (Bld)11.3 %Normal1.7-12.0The [facility] on above:Performed By: #### CBC #### [facility] [address] [place] [address] Dr. Tisha Meredith #2.6 103/ulNormal1.4-6.5The [facility] Medical CenterComment on above:Performed By: #### CBC #### [facility] [address] [place] [address] Dr. Tisha Estradautrophils/100 WBC (Bld)46.0 %Smjjmg37.0-75.0The [facility] Medical CenterComment on above:Performed By: #### CBC #### [facility] [address] [place] [address] Dr. Tisha Hansonlet mean volume (Bld) [Entitic vol]10.5 fLNormal9.5-13.5The [facility] Medical CenterComment on above:Performed By: #### CBC #### [facility] [address] [place] [address] Dr. Tisha JohnPLT134 103/ulCritically qyn090-773Aii [facility] Medical CenterComment on above:Performed By: #### CBC #### [facility] [address] [place] [address] Dr. Tisha JohnRBC4.52 106/ulCritically low4.70-6.10The [facility] Medical CenterComment on above:Performed By: #### CBC #### [facility] [address] [place] [address] Dr. Tisha JohnWBC5.6 103/ulNormal4.0-11.0The [facility] Medical CenterComment on above: Performed By: #### CBC #### [facility] [address] [place] [address] Dr. Tisha JohnLIPID PROFILEon 40-81-5759JGVP-HDL RATIO NORMSOhioHealth Marion General HospitalComvon [facility] on above:Result Comment: 3.3 - 4.4 LOW RISK 4.4 - 7.1 AVERAGE RISK 7.1 - 11.0 MODERATE RISK >11.0 HIGH RISKPerformed By: #### ALT, BMP, LIPID #### [facility] [address] [address] [address] Tisha JohnCholesterol [Mass/Vol]187 mg/dLNormal<=200[facility] Comment on above:Performed By: #### ALT, BMP, LIPID #### [facility] [address] [address] [address] Tisha JohnCholesterol in HDL [Mass/Vol]51 mg/zPVpjnrk95-17JhkJ.W. Ruby [facility] on above:Performed By: #### ALT, BMP, LIPID #### [facility] [address] [place] [address] Dr. Tisha Mannesterol in LDL [Mass/Vol]104.8 mg/dLRiverside Methodist HospitalComment on above:Performed By: #### ALT, BMP, LIPID #### [facility] [address] [address] [address] Tisha Louis.total/Cholesterol in HDL [Mass ratio]3.7 {ratio} NormalWright-Patterson Medical CenterComvon [facility] on above:Performed By: #### ALT, BMP, LIPID #### [facility] [address] [address] [address] Tisha Fernandez NORMAL> or = 60 mg/dl - LOW CARDIOVASCULAR RISK <40 mg/dl - HIGH CARDIOVASCULAR RISKRiverside Methodist HospitalComvon [facility] hospital on above:Performed By: #### ALT, BMP, LIPID #### [facility] [address] [place] [address] Dr. Tisha JohnLDL CALC NORMALSEDayton VA Medical CenterComvon [facility] on above:Result Comment: <100 mg/dl OPTIMAL 100 - 129 mg/dl NEAR OR ABOVE OPTIMAL 130 - 159 mg/dl BORDERLINE HIGH 160 - 189 mg/dl HIGH >190 mg/dl VERY HIGH Performed By: #### ALT, BMP, LIPID #### [facility] [address] [address] [address] Tisha JohnTriglyceride [Mass/Vol]156 mg/dLCritically high<=150The [facility] Medical CenterComment on above:Performed By: #### ALT, BMP, LIPID #### [facility] [address] [address] [address] Tisha JohnVLDL CALC31.2 mg/dLNormalThe [facility] Medical CenterComment on above: Performed By: #### ALT, BMP, LIPID #### [facility] [address] [address] [address] Tisha JohnPROF CHEM 8 (BAS METB)on [id number] gap [Moles/Vol]10.7 mmol/LNormalThe [facility] Medical CenterComment on above:Performed By: #### ALT, BMP, LIPID #### [facility] [address] [address] [address] Tisha JohnCalcium [Mass/Vol]8.7 mg/dLNormal8.5-10.1The [facility] Comment on above:Performed By: #### ALT, BMP, LIPID #### [facility] [address] [address] [address] Tisha JohnChloride [Moles/Vol]102 mmol/NRkjolp10-056Vyl [facility] Comment on above:Performed By: #### ALT, BMP, LIPID #### [facility] [address] [address] [address] Tisha JohnCO2 [Moles/Vol]30.7 mmol/TWkwsld76.0-32.0The [facility] Comment on above:Performed By: #### ALT, BMP, LIPID #### [facility] [address] [address] [address] Tisha JohnCreatinine [Mass/Vol]0.88 mg/dLNormal0.70-1.30The [facility] Medical CenterComment on above:Performed By: #### ALT, BMP, LIPID #### [facility] [address] [address] [address] Giles ChangEGFR-AF VINCENTIAN>60Normal>=60The [facility] Medical CenterComment on above:Performed By: #### ALT, BMP, LIPID #### [facility] [address] [place] [address] Dr. Tisha NicolasGFR-NON AF VINCENTIAN>60Normal>=60The [facility] Medical CenterComment on above:Performed By: #### ALT, BMP, LIPID #### [facility] [address] [place] [address] Dr. Tisha JohnGlucose [Mass/Vol]106 mg/eGAgxvtm19-976Ldn [facility] Comment on above:Performed By: #### ALT, BMP, LIPID #### [facility] [address] [place] [address] Dr. Tisha JohnPotassium [Moles/Vol]4.4 mmol/LNormal3.5-5.1[facility] Comment on above:Performed By: #### ALT, BMP, LIPID #### [facility] [address] [place] [address] Dr. Tisha Artisum [Moles/Vol]139 mmol/JZsysqo167-676UfjWright-Patterson Medical Center Comment on above:Performed By: #### ALT, BMP, LIPID #### [facility] [address] [place] [address] Dr. Tisha JohnUrea nitrogen [Mass/Vol]16.0 mg/dLNormal7.0-18.0[facility] Medical CenterComment on above:Performed By: #### ALT, BMP, LIPID #### [facility] [address] [place] [address] Dr. Tisha Valenzuela nitrogen/Creatinine [Mass ratio]18.2 mg/mgNormalThe [facility] CenterComment on above:Performed By: #### ALT, BMP, LIPID #### [facility] [address] [place] [address] Dr. Tisha Meier [id number] [Catalytic activity/Vol]23 U/NCbfoox60-71QuzWright-Patterson Medical CenterComment on above:Performed By: #### ALT, BMP, LIPID #### [facility] [address] [place] [address] Dr. Tisha JohnAmbulatory Visit Summaryon [id number] Visit Summary YANELIS NORIEGA :1945 Visit Date:2022 Ambulatory Visit Instructions Your Diagnosis BPH without urinary obstruction Anticoagulated Tests Performed Urnls Dip Stick Auto w/o Microscopy POC 497[address] Your Care Team Attending Physician - Clarisa Ibarra MD Primary Care Physician - BLU VELEZ DO This Is Your Medications List Contact prescribing physician if questions or concerns amlodipine (amLODIPine 5 mg Tab) apixaban (Eliquis 2.5 mg oral tablet) atorvastatin benazepril Procedures Performed Cystoscopy (12/25/2019), Arthroscopy of knee, Colonoscopy, Esophagogastroduodenoscopy, Herniorrhaphy, Knee replacement, Repair of rotator cuff of shoulder. Discharge Vitals Height 172 cm Height 68 in Weight 82.5 kg Weight 181.5 lb BMI 27.89 What to do next Scheduled Follow-Up Appointments Sunday. 2022 9:30 AM EDT With: Clarisa Ibarra MD [facility] CenterPatient Educationon 40-64-1100Tfutijc EducationUrology Benign Prostatic Hyperplasia Benign prostatic hyperplasia (BPH) is an enlarged prostate gland that is caused by the normal agingprocess and not by cancer. The prostate is [...] urine that may remain in your bladder afteryou finish urinating. ? A digital rectal exam. [...] this procedure, a tool is inserted through theopening at the tip of the penis (urethra). [...] procedure uses radio frequencies to destroy and removea small amount of prostate tissue. ? Interstitial laser coagulation (ILC). This procedure uses a laser to destroy and remove a small amount of prostate tissue. ? Transurethral electrovaporization (TUVP). This procedure uses electrodes to destroy and remove a small amount of prostate tissue. ? Prostatic urethral lift. This procedure inserts an implant to push the lobes of the prostate awayfrom the urethra. Follow these instructions at home: ? Take hfjo-ktg-eyrhyir and prescription medicines only as told by [...] treatment. ? You d (more content not included)...[facility] HospitalU[facility] Office/Clinic Noteon 30-71-9711Gcwdvrr Office/Clinic NoteChief Complaint 1yr PSA HPI Staff DLS pt [...] (N40.0: Benign prostatic hyperplasia without lower urinary tractsymptoms) - UA today is clear/neg no signs [...] changes in urinary symptoms. 2. 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) Eliquis 2.5 mg BID Elevated risk of periop complications in the future Follow-up With When Contact Information Cl Alan MD, Juliana Dallas, URO Within 6 months [facility] [address], [place] [address]- Additional Instructions: PSA Patient Education Benign Prostatic [...] History Cystoscopy (12/25/2019), Arthroscopy of knee, Colonoscopy, Esophagogastroduodenoscopy, Herniorrhaphy, Knee replacement, Repair of rotator cuff [...] Protein Urine Dipstick: Negative (01/11/22 11:11:00) Specific [place] Urine Dipstick: 1.025 (01/11/22 11:11:00) Urine Appearance Urine Dipstick: Clear (01/11/22 11:11:00) Urine Color Urine Dipstick: Yellow (01/11/22 11:11:00) Urobilinogen Urine Dipstick: Normal 0.2-1 EU/dl (01/11/22 11:11:00) pH Urine Dipstick: 5 (01/11/22 11:11:00) Diagnostic Results Tests Re (more content not included)...[facility] HospitalComment on above:Result Comment: Electronically Signed By: Clarisa Ibarra MD\.br\Date and Time Signed: 01/11/22 12:31EST\.br\Electronically Co-Signed By: Petrona Perera\.br\Date and Time Co-Signed: 01/11/22 12:10 ESTLab Reportson 08-03-5805Uyj [id number]:127NoAshtabula County Medical CenterBasic Metab w/rfx MGon 08-22-2020(cont.)[facility] CampusComment on above:Result Comment: Average GFR for 70 or more years old: 75 mL/min/1.73sq m Chronic Kidney Disease: <60 mL/min/1.73sq m Kidney failure: <15 mL/min/1.73sq m eGFR calculated using average adult body mass. Additional eGFR calculator available at: http://www.[employer]/multiple_crcl_2012.htmPerformed By: #### CHARLIE, BMPX #### [facility] [address] [place] [address] Marketing And Development Coordinator: Khalida James gap [Moles/Vol]13 mmol/LNormal9-17[facility] HospitalComment on above:Performed By: #### CHARLIE, BMPX #### [facility] [address] [place] [address]. [place] [address] Marketing And Development Coordinator: Preet Castillo MDBUN/CRE Rzkld34Izjvrf8-03LescyOhiohealth Grove City Methodist HospitalComment on above:Performed By: #### CHARLIE, BMPX #### [facility] [address] [facility] [place] [address] Marketing And Development Coordinator: DEONTE Jamesalcium [Mass/Vol]8.5 mg/dLLow8.6-10.4Mer[facility] Memorial HospitalComment on above:Performed By: #### CBC, BMPX #### [facility] [address] [facility] [place] [address] Marketing And Development Coordinator: DEONTE Jameshloride [Moles/Vol]105 mmol/EKferag28-536PzmmbEvergreenHealth MonroeComment on above:Performed By: #### CBC, BMPX #### [facility] [address] [place] [address] Marketing And Development Coordinator: Preet Castillo MDCO2 [Moles/Vol]23 mmol/ZCmwcav05-17XunkrEvergreenHealth MonroeComment on above:Performed By: #### CBC, BMPX #### [facility] [address] [place] [address] Marketing And Development Coordinator: DEONTE Jamesreatinine [Mass/Vol]0.64 mg/dLLow0.70-1.20 [facility] HospitalComment on above:Performed By: #### CBC, BMPX #### [facility] [address] [place] [address]. [place] [address] Marketing And Development Coordinator: TWYLA James, Amer>60Normal>60[facility] Prosser Memorial HospitalComment on above:Performed By: #### CBC, BMPX #### [facility] [address] [place] [address]. [place] [address] Marketing And Development Coordinator: TWYLA James,non Amer>60Normal>60[facility]sser Memorial HospitalComment on above:Performed By: #### CBC, BMPX #### [facility] [address] [facility] [place] [address] Marketing And Development Coordinator: Preet Castillo MDGlucose [Mass/Vol]108 mg/xGRcmn52-02AdoriSwedish Medical Center IssaquahComment on above:Performed By: #### CBC, BMPX #### [facility] [address] [facility] [place] [address] Marketing And Development Coordinator: ANJUM Jamseotassium [Moles/Vol]4.0 mmol/LNormal3.7-5.3 [facility] HospitalComvon [facility] on above:Performed By: #### CHARLIE, BMPX #### [facility] [address] [place] [address] Marketing And Development Coordinator: KORY Jamesodium [Moles/Vol]141 mmol/YKjmgyi397-272VyizkOhiohealth Grove City Methodist HospitalComvon [facility] on above:Performed By: #### CHARLIE, BMPX #### [facility] [place] [address] Marketing And Development Coordinator: Preet Castillo MDUrea nitrogen [Mass/Vol]13 mg/dLNormal8-23[facility] HospitalComment on above:Performed By: #### CHARLIE, BMPX #### [facility] [address] [place] [address] Marketing And Development Coordinator: KORY Jamestaging:NOT REPORTEDNormalOhiohealth Grove City Methodist HospitalComvon [facility] on above:Performed By: #### CHARLIE, BMPX #### [facility] [place] [address] Marketing And Development Coordinator: Jenny James Metabolic Panel w/ Reflex to MGOrdered By: Rachel Mclean on 85-19-1644Spcil gap [Moles/Vol]13 mmol/L9 - 17 mmol/L [facility] Work Phone: calcium [Mass/Vol]8.5 mg/dLLow8.6 - 10.4 mg/dLOhio State Harding HospitalK121 Phone: chloride [Moles/Vol]105 mmol/L98 - 107 mmol/LMercy [employer] Work Phone: cO2 [Moles/Vol]23 mmol/L20 - 31 mmol/LMgenesis hospitaly [employer] Work Phone: creatinine [Mass/Vol]0.64 mg/dLLow0.70 - 1.20 mg/dL [facility] HospitalCreativit Studios Phone: GFR >60>60 mL/minOhio State Harding HospitalK121 Phone: GFR Non->60>60 mL/minOhio State Harding HospitalK121 Phone: GFR/1.73 sq M.predicted MDRD (S/P/Bld) [Vol rate/Area] [facility]ome[facility] HospitalCreativit Studios Phone: comment on above:Average GFR for 70 or more years old: 75 mL/min/1.73sq m Chronic Kidney Disease: <60 mL/min/1.73sq m Kidney failure: <15 mL/min/1.73sq m eGFR calculated using average adult body mass. Additional eGFR calculator available at: http://www.[employer]/multiple_crcl_2012.htm GFR/1.73 sq M.predicted MDRD (S/P/Bld) [Vol rate/Area]NOT REPORTEDOhio State Harding HospitalK121 Phone: Glucose [Mass/Vol]108 mg/lGEoki93 - 99 mg/dLOhio State Harding HospitalK121 Phone: Interpretation and review of laboratory results AbnormalOhio State Harding HospitalK121 Phone: potassium [Moles/Vol]4.0 mmol/L3.7 - 5.3 mmol/LMercy [employer] Work Phone: sodium [Moles/Vol]141 mmol/L135 - 144 mmol/LMercy [facility] Work Phone: Urea nitrogen (BldV) [Mass/Vol]13 mg/dL8 - 23 mg/dL [facility] Phone: Urea nitrogen/Creatinine (Bld) [Mass ratio]20[facility] [employer] Work Phone: [facility] Work Phone: cBCon 70-37-5211Tyrveblflko distribution width (RBC) [Ratio]12.9 %Qenwbg67.8-14.4[facility] Methodist HospitalComment on above:Performed By: #### CBC, BMPX #### [facility] [address] [place] [address] Marketing And Development Coordinator: Preet Castillo MDHematocrit (Bld) [Volume fraction]31.3 %Low 40.7-50.3Mgenesis hospitaly Prosser Memorial HospitalComment on above:Performed By: #### CBC, BMPX #### [facility] [address] [place] [address] Marketing And Development Coordinator: Preet Castillo MDHemoglobin (Bld) [Mass/Vol]10.1 g/dLLow 13.0-17.0[facility] HospitalComment on above:Performed By: #### CBC, BMPX #### [facility] [address] [place] [address] Marketing And Development Coordinator: RODNEY JamesCH (RBC) [Entitic mass]31.0 lsLewzhj47.2-33.5 [facility] HospitalComment on above:Performed By: #### CBC, BMPX #### [facility] [address] [place] [address] Marketing And Development Coordinator: MONICA JamesC (RBC) [Mass/Vol]32.3 g/sPPkhvdm53.4-34.8 [facility] HospitalComment on above:Performed By: #### CBC, BMPX #### [facility] [address] [facility] [place] [address] Marketing And Development Coordinator: CAROLINE James (RBC) [Entitic vol]96.0 lBMwkbsb54.6-102.9 [facility] HospitalComvon [facility] on above:Performed By: #### CBC, BMPX #### [facility] [address] [place] [address]. [place] [address] Marketing And Development Coordinator: VIDAL James Automated0.0 per 100 WBCNormal0.0[facility] HospitalComvon [facility] on above:Performed By: #### CBC, BMPX #### [facility] [address] [place] [address]. [place] [address] Marketing And Development Coordinator: Drew James mean volume (Bld) [Entitic vol]10.4 fL Normal8.1-13.5[facility] HospitalComvon [facility] on above:Performed By: #### CBC, BMPX #### [facility] [address] [place] [address]. [place] [address] Marketing And Development Coordinator: Darlyn James (Bld) [#/Vol]196 10*3/lPQkbfml940-502 [facility] HospitalComvon [facility] on above:Performed By: #### CBC, BMPX #### [facility] [address] [place] [address]. [place] [address] Marketing And Development Coordinator: HAILEE JamesBC (Bld) [#/Vol]3.26 10*6/uLLow4.21-5.77[facility] on above:Performed By: #### CBC, BMPX #### [facility] [address] [place] [address]. [place] [address] Marketing And Development Coordinator: Preet Jonathan, MDWBC (Bld) [#/Vol]6.1 10*3/uLNormal3.5-11.3Mer[facility]sser Memorial HospitalComment on above:Performed By: #### CBC, BMPX #### [facility] [address] [place] [address] Marketing And Development Coordinator: DEONTE JamesOrdered By: Rachel Mclean on 08-22-2020 Hematocrit (Bld) [Volume fraction]31.3 %Low40.7 - 50.3 %[employer] Phone: Hemoglobin.gastrointestinal spec 1 Ql (Stl)10.1 g/dL Low13.0 - 17.0 g/dLOhio State Harding HospitalK121 Phone: Interpretation and review of laboratory results AbnormalOhio State Harding HospitalK121 Phone: MCH (RBC) [Entitic mass]31.0 pg25.2 - 33.5 pgOhio State Harding HospitalK121 Phone: MCHC (RBC) [Mass/Vol]32.3 g/dL28.4 - 34.8 g/dLOhio State Harding HospitalK121 Phone: MCV (RBC) [Entitic vol]96.0 fL82.6 - 102.9 fLBanyan Technology Phone: NRBC Automated0.00.0 per 100 WBCOhio State Harding HospitalK121 Phone: platelet distribution width (Bld) [Ratio]12.9 %11.8 - 14.4 %[employer] Phone: platelet mean volume (Bld) [Entitic vol]10.4 fL8.1 - 13.5 fLBanyan Technology Phone: platelets (Bld) [#/Vol]196 10*3/[employer] Phone: rBC (Bld) [#/Vol]3.26 10*6/uLLow4.21 - 5.77 m/[employer] Phone: WBC (Bld) [#/Vol]6.1 10*3/[employer] Phone: [facility]K121 Phone: cBC with DIFFOrdered By: Arden Maharaj on 08-21-2020 Absolute Eos #0.04[facility] HospitalK121 Phone: absolute Immature Granulocyte0.03[facility] HospitalK121 Phone: absolute Lymph #1.16[facility] HospitalK121 Phone: absolute Kane #0.76[facility] HospitalK121 Phone: basophils (Bld) [#/Vol]0.03 10*3/[employer] Phone: basophils/100 WBC (Bld)0 %0 - 2 %[employer] Phone: differential TypeNOT REPORTEDOhio State Harding HospitalK121 Phone: eosinophils/100 WBC (Bld)1 %1 - 4 %[employer] Phone: Hematocrit (Bld) [Volume fraction]32.2 %Low40.7 - 50.3 %[employer] Phone: Hemoglobin.gastrointestinal spec 1 Ql (Stl)10.6 g/dL Low13.0 - 17.0 g/dLOhio State Harding HospitalK121 Phone: Immature granulocytes/100 WBC (Bld)0 %0[facility] HospitalK121 Phone: Interpretation and review of laboratory results AbnormalOhio State Harding HospitalK121 Phone: lymphocytes/100 WBC (Bld)14 %Low24 - 43 %[employer] Phone: MCH (RBC) [Entitic mass]31.5 pg25.2 - 33.5 pgOhio State Harding HospitalK121 Phone: MCHC (RBC) [Mass/Vol]32.9 g/dL28.4 - 34.8 g/dLOhio State Harding HospitalK121 Phone: MCV (RBC) [Entitic vol]95.8 fL82.6 - 102.9 fLOhio State Harding HospitalK121 Phone: Monocytes/100 WBC (Bld)9 %3 - 12 %[employer] Phone: NRBC Automated0.00.0 per 100 WBCOhio State Harding HospitalK121 Phone: platelet distribution width (Bld) [Ratio]12.8 %11.8 - 14.4 %[employer] Phone: Platelet EstimateNOT REPORTEDOhio State Harding HospitalK121 Phone: Platelet mean volume (Bld) [Entitic vol]9.7 fL8.1 - 13.5 fLOhio State Harding HospitalK121 Phone: Platelets (Bld) [#/Vol]211 10*3/uLBany[employer] Phone: RBC (Bld) [#/Vol]3.36 10*6/uLLow4.21 - 5.77 m/[employer] Phone: RBC (Bld) [#/Vol]NOT REPORTEDOhio State Harding HospitalK121 Phone: Segmented neutrophils/100 WBC (Bld)76 %High36 - 65 % [employer] Phone: Segs Absolute6.42[facility] HospitalK121 Phone: [phone] (Bld) [#/Vol]8.4 10*3/[employer] Phone: [phone] (Bld) [#/Vol]NOT REPORTEDOhio State Harding HospitalK121 Phone: [facility] HospitalTutor Assignment Work Phone: CBC with Diffon [id number]. Basophil0.03 k/uLNormal 0.00-0.20[facility]sser Memorial HospitalComment on above:Performed By: #### CDP #### [facility] [place] [address] Marketing And Development Coordinator: Devan James.Imm.Granulocyte0.03 k/uLNormal0.00-0.30 [facility] HospitalComment on above:Performed By: #### CDP #### [facility] [address] [place] [address] Marketing And Development Coordinator: Devan James.Neutrophil (Seg)6.42 k/uLNormal1.50-8.10 [facility] HospitalComment on above:Performed By: #### CDP #### [facility] [address] [place] [address] Marketing And Development Coordinator: Preet Castillo MDBasophils/100 WBC (Bld)0 %Normal0-2[facility]er [facility] HospitalComment on above:Performed By: #### CDP #### [facility] [address] [place] [address] Marketing And Development Coordinator: JEANCARLOS Jamesosinophils (Bld) [#/Vol]0.04 10*3/uLNormal 0.00-0.44MerEvergreenHealth MonroeComvon [facility]igtlander women's hospital on above:Performed By: #### CDP #### [facility] [address] [place] [address] Marketing And Development Coordinator: JEANCARLOS Jamesosinophils/100 WBC (Bld)1 %Normal1-4MerEvergreenHealth MonroeComment on above:Performed By: #### CDP #### [facility] [address] [place] [address] Marketing And Development Coordinator: Preet Castillo MDErythrocyte distribution width (RBC) [Ratio] 12.8 %Fytame13.8-14.4[facility] HospitalComment on above:Performed By: #### CDP #### [facility] [address] [place] [address] Marketing And Development Coordinator: Preet Castillo MDHematocrit (Bld) [Volume fraction]32.2 %Low 40.7-50.3[facility] Memorial HospitalComment on above:Performed By: #### CDP #### [facility] [address] [place] [address] Marketing And Development Coordinator: Preet Castillo MDHemoglobin (Bld) [Mass/Vol]10.6 g/dLLow 13.0-17.0[facility] HospitalComment on above:Performed By: #### CDP #### [facility] [address] [place] [address] Marketing And Development Coordinator: Preet Castillo MDImmature granulocytes/100 WBC (Bld)0 %Normal0 [facility] HospitalComvon [facility] on above:Performed By: #### CDP #### [facility] [address] [place] [address] Marketing And Development Coordinator: Preet Castillo MDLymphocytes (Bld) [#/Vol]1.16 10*3/uLNormal 1.10-3.70[facility] HospitalComment on above:Performed By: #### CDP #### [facility] [address] [place] [address] Marketing And Development Coordinator: Preet Castillo MDLymphocytes/100 WBC (Bld)14 %Qaw36-29YergxEvergreenHealth MonroeComment on above:Performed By: #### CDP #### [facility] [address] [place] [address] [place] [address] Marketing And Development Coordinator: RODNEY JamesCH (RBC) [Entitic mass]31.5 gmCzyqxh98.2-33.5 [facility] HospitalComment on above:Performed By: #### CDP #### [facility] [address] [place] [address] Marketing And Development Coordinator: RODNEY JamesCHC (RBC) [Mass/Vol]32.9 g/dBWjubzu14.4-34.8 [facility] HospitalComment on above:Performed By: #### CDP #### [facility] [address] [place] [address] Marketing And Development Coordinator: RODNEY JamesCV (RBC) [Entitic vol]95.8 jHNuxblu40.6-102.9 [facility] HospitalComment on above:Performed By: #### CDP #### [facility] [address] [place] [address] Marketing And Development Coordinator: RODNEY Jamesonocytes (Bld) [#/Vol]0.76 10*3/uLNormal 0.10-1.20[facility] Hospitalcy Prosser Memorial HospitalComment on above:Performed By: #### CDP #### [facility] [address] [place] [address] Marketing And Development Coordinator: RODNEY Jmaesonocytes/100 WBC (Bld)9 %Normal3-12[facility] HospitalComment on above:Performed By: #### CDP #### [facility] [address] [place] [address] Marketing And Development Coordinator: Justin Jamesophil (Seg)76 %Huai90-08HkdxuOhiohealth Grove City Methodist HospitalComment on above:Performed By: #### CDP #### [facility] [address] [place], [place] [address]ia [place] [address] Marketing And Development Coordinator: VIDAL James Automated0.0 per 100 WBCNormal0.0[facility] on above:Performed By: #### CDP #### [facility] [address] [facility] [place] [address] Marketing And Development Coordinator: Drew James mean volume (Bld) [Entitic vol]9.7 fL Normal8.1-13.5[facility] HospitalComvon [facility] on above:Performed By: #### CDP #### [facility] [address] [place] [address]. [place] [address] Marketing And Development Coordinator: Darlyn James (Bld) [#/Vol]211 10*3/pZDruswx079-226 [facility] HospitalComvon [facility] on above:Performed By: #### CDP #### [facility] [address] [place] [address]. [place] [address] Marketing And Development Coordinator: LISBETH James (Bld) [#/Vol]3.36 10*6/uLLow4.21-5.77[facility] HospitalComvon [facility] on above:Performed By: #### CDP #### [facility] [address] [place] [address]. [place] [address] Marketing And Development Coordinator: CHRISTINE James (Bld) [#/Vol]8.4 10*3/uLNormal3.5-11.3Mgenesis hospitaly [facility] on above:Performed By: #### CDP #### [facility] [address] [place] [address]. [place] [address] Marketing And Development Coordinator: Celso James Diff PerformedNOT REPORTEDNormalDetwiler Memorial Hospital on above:Performed By: #### CDP #### [facility] [address] [place] [address] Marketing And Development Coordinator: Drew James EstimateNOT REPORTEDNormalDetwiler Memorial Hospital on above:Performed By: #### CDP #### [facility] [address] [place] [address] Marketing And Development Coordinator: LISBETH James morphology finding Nom (Bld)NOT REPORTED NormalOhiohealth Grove City Methodist HospitalComment on above:Performed By: #### CDP #### [facility] [address] [place] [address] Marketing And Development Coordinator: CHRISTINE James MorphologyNOT REPORTEDNormalOhiohealth Grove City Methodist HospitalComvon [facility] on above:Performed By: #### CDP #### [facility] [address] [place] [address] Marketing And Development Coordinator: SHAD JamesIME-INROrdered By: Elisa Ferraro on [id number] Coag (Bld) [Relative time]1.0 {INR}[facility] Work Phone: comment on above: Non-therapeutic Range: INR = 0.9-1.2 Therapeutic Range: Moderate Anticoagulant Intensity: INR = 2.0-3.0 High Anticoagulant Intensity: INR = 2.5-3.5 PT Coag (PPP) [Time]13.5 [facility] [employer] Work Phone: [facility] [employer] Phone: pHonorhealth Rehabilitation Hospital [phone] Coag (PPP) [Relative time]1.0 {INR} [facility] on above:Result Comment: Non-therapeutic Range: INR = 0.9-1.2 Therapeutic Range: Moderate Anticoagulant Intensity: INR = 2.0-3.0 High Anticoagulant Intensity: INR = 2.5-3.5Performed By: #### PT #### [facility] [address] [place] [address] Marketing And Development Coordinator: VANDANA James Coag (PPP) [Time]13.5 eUgcjyd23.5-14.2MSwedish Medical Center IssaquahComment on above:Performed By: #### PT #### [facility] [place] [address] Marketing And Development Coordinator: Aldo James [phone] Coag (PPP) [Relative time] 1.0 {INR}[facility] CampusComvon [facility] on above:Result Comment: Non-therapeutic Range: INR = 0.9-1.2 Therapeutic Range: Moderate Anticoagulant Intensity: INR = 2.0-3.0 High Anticoagulant Intensity: INR = 2.5-3.5Performed By: #### PT, PLT #### [facility] [address] [place] [address]. [place] [address] Marketing And Development Coordinator: VANDANA James Coag (PPP) [Time]13.4 kFphamk47.5-14.2[facility] Memorial HospitalComment on above:Performed By: #### PT, PLT #### [facility] [place] [address] Marketing And Development Coordinator: Drew James Counton [phone] (Bld) [#/Vol]144 10*3/xLPvxcoz555-710Otz[address] [place], [place] [address]Com[facility] on above:Performed By: #### PT, PLT #### [facility] [address] [place] [address] Marketing And Development Coordinator: Drew James CountOrdered By: Elisa Ferraro on [id number] (Bld) [#/Vol]144 10*3/[facility] Work Phone: MerK121 Phone: [phone]-REAFocjcsu By: Elisa Ferraro on [phone] Coag (Bld) [Relative time]1.0 {INR}[facility]ome[facility] HospitalCreativit Studios Phone: comment on above: Non-therapeutic Range: INR = 0.9-1.2 Therapeutic Range: Moderate Anticoagulant Intensity: INR = 2.0-3.0 High Anticoagulant Intensity: INR = 2.5-3.5 PT Coag (PPP) [Time]13.4 REPUCOM Phone: [facility]K121 Phone: XR KNEE RIGHT (1-2 VIEWS)on [phone] KNEE RIGHT (1-2 VIEWS)EXAMINATION: TWO XRAY VIEWS OF THE RIGHT KNEE [...] Signed by: Bradley Harper MD 08/09/20 Final resultNormalOhiohealth Grove City Methodist HospitalXR KNEE RIGHT (1-2 VIEWS)Ordered By: Elisa Ferraro on 20-19-8156Qygfmt postop changes right [facility] Phone: eXAMINATION: TWO XRAY VIEWS OF THE RIGHT KNEE 08/09/2020 3:30 pm COMPARISON: None. HISTORY: ORDERINGSYSTEM PROVIDED HISTORY: postop eval TECHNOLOGIST PROVIDED HISTORY: [...] fluid are related to the recent surgical procedure.[employer] Phone: edi, [facility] Incoming Radiant Results From [employer] - 08/09/2020 3:43 PM EDT EXAMINATION: TWO [...] procedure. IMPRESSION: Recent postop changes right TKA [employer] Phone: [employer] Phone: eKG 12 LeadOrdered By: Elisa Ferraro on 07-16-2020 Atrial Rvad47HFAKuessWiseStamp Phone: P Cewi08mrfmratHsfsiBanyan [employer]om[employer] Phone: p-R Jmlivvgs254 [employer] Phone: Q-T Pbbrpckg875 [employer] Phone: QRS Drzzshvq83 [employer] Phone: QTc Calculation (Bazett)420 [employer] Phone: R Vgjs9yfjwduaOquvq Health Work Phone: T Unyj50almfnuhYmhmgBanyan [employer] Phone: Ventricular Acmg37CXDScbgsWiseStamp Phone: Normal sinus rhythm Normal ECG No previous ECGs available [employer] Phone: edi, pn Incoming Ekg Results From [employer] - 07/16/2020 8:09 AM EDT Normal sinus rhythm Normal ECG No previous ECGs availableKettering Health Springfield [employer] Phone: [facility] [employer] Phone: MRSA DNA Probe, NasalOrdered By: Elisa Ferraro on [id number] Description.NASAL SWABKettering Health Springfield [employer] Phone: [facility] [employer] Phone: MRSA, DNA, NasalOrdered By: Elisa Ferraro on [id number], DNA, NasalNEGATIVE: MRSA DNA not detected by nucleic acid amplification.NormalNMRSAAKettering Health Springfield [employer] Phone: comment on above: Results should be used as [...] treatment for MRSA infections. Performed By: #### MRSANO #### [facility] [address] [place], [place] [address] Marketing And Development Coordinator: Preet Castillo MD [address] [id number] Marketing And Development Coordinator: Misty Woo [phone] Coag (Bld) [Time]32.6 s Spfzjz49.9-33.8[facility] HospitalComment on above:Result Comment: IV Heparin Therapy Range: 62.0-94.0Performed By: #### CBC, BMPX #### [facility] [address] [place], [place] [address] Marketing And Development Coordinator: Vernon Jamesdered By: Elisa Freraro on [id number] Coag (Bld) [Time]32.6 sMREPUCOM Phone: comment on above: IV Heparin Therapy Range: 62.0-94.0 [employer] Phone: cBC Auto DifferentialOrdered By: Elisa Ferraro on [id number] Eos #0.35[facility]K121 Phone: absolute Immature Granulocyte0.01[facility] HospitalK121 Phone: absolute Lymph #1.38[facility] HospitalK121 Phone: absolute Kane #0.73[facility] HospitalK121 Phone: basophils (Bld) [#/Vol]0.05 10*3/uLOhio State Harding HospitalK121 Phone: basophils/100 WBC (Bld)1 %0 - 2 %[employer] Phone: differential TypeNOT REPORTEDOhio State Harding HospitalK121 Phone: eosinophils/100 WBC (Bld)6 %High1 - 4 %[employer] Phone: Hematocrit (Bld) [Volume fraction]40.9 %40.7 - 50.3 % [employer] Phone: Hemoglobin.gastrointestinal spec 1 Ql (Stl)14.1 g/dL 13.0 - 17.0 g/dLOhio State Harding HospitalK121 Phone: Immature granulocytes/100 WBC (Bld)0 %0[facility] HospitalK121 Phone: Interpretation and review of laboratory results AbnormalOhio State Harding HospitalK121 Phone: lymphocytes/100 WBC (Bld)24 %24 - 43 %[employer] Phone: MCH (RBC) [Entitic mass]32.1 pg25.2 - 33.5 pgOhio State Harding HospitalK121 Phone: MCHC (RBC) [Mass/Vol]34.5 g/dL28.4 - 34.8 g/dLOhio State Harding HospitalK121 Phone: [phone] (RBC) [Entitic vol]93.2 fL82.6 - 102.9 fLOhio State Harding HospitalK121 Phone: [phone]/100 WBC (Bld)13 %High3 - 12 %[facility] HospitalCreativit Studios Phone: NRBC Automated0.00.0 per 100 WBCOhio State Harding HospitalK121 Phone: Llatelet distribution width (Bld) [Ratio]12.4 %11.8 - 14.4 %[employer] Phone: Ulatelet EstimateNOT REPORTEDOhio State Harding HospitalK121 Phone: Platelet mean volume (Bld) [Entitic vol]10.4 fL8.1 - 13.5 fLOhio State Harding HospitalK121 Phone: Platelets (Bld) [#/Vol]135 10*3/uLLowOhio State Harding HospitalK121 Phone: [phone] (Bld) [#/Vol]4.39 10*6/uL4.21 - 5.77 m/YieldbotOhio State Harding HospitalK121 Phone: [phone] (Bld) [#/Vol]NOT REPORTEDOhio State Harding HospitalK121 Phone: [phone] neutrophils/100 WBC (Bld)56 %36 - 65 %[facility] HospitalCreativit Studios Phone: [phone] Absolute3.30[facility] HospitalK121 Phone: [phone] (Bld) [#/Vol]5.8 10*3/[employer] Phone: [phone] (Bld) [#/Vol]NOT REPORTEDOhio State Harding HospitalK121 Phone: [phone] HospitalK121 Phone: CBC with Diffon [id number]. Basophil0.05 k/uLNormal 0.00-0.20[facility] HospitalComvon [facility] on above:Performed By: #### CBC, BMPX #### [facility] [address] [place] [address] Marketing And Development Coordinator: Devan James.Imm.Granulocyte0.01 k/uLNormal0.00-0.30 [facility] HospitalComvon [facility] on above:Performed By: #### CBC, BMPX #### [facility] [address] [place] [address] Marketing And Development Coordinator: Devan James.Neutrophil (Seg)3.30 k/uLNormal1.50-8.10 [facility] HospitalComvon [facility] on above:Performed By: #### CBC, BMPX #### [facility] [address] [place] [address] Marketing And Development Coordinator: Aryan Jamessophils/100 WBC (Bld)1 %Normal0-2[facility] HospitalComvon [facility] on above:Performed By: #### CBC, BMPX #### [facility] [address] [place] [address] Marketing And Development Coordinator: JEANCARLOS Jamesosinophils (Bld) [#/Vol]0.35 10*3/uLNormal 0.00-0.44[facility] HospitalComvon [facility] on above:Performed By: #### CBC, BMPX #### [facility] [address] [place] [address] Marketing And Development Coordinator: JEANCARLOS Jamesosinophils/100 WBC (Bld)6 %High1-4[facility] HospitalComvon [facility] on above:Performed By: #### CBC, BMPX #### [facility] [address] [place] [address] Marketing And Development Coordinator: Preet Jonathan, MDErythrocyte distribution width (RBC) [Ratio] 12.4 %Kzrtds85.8-14.4[facility] on above:Performed By: #### CBC, BMPX #### [facility] [place] [address] Marketing And Development Coordinator: Preet Castillo MDHematocrit (Bld) [Volume fraction]40.9 %Normal 40.7-50.3MSwedish Medical Center IssaquahComvon voigtlander [facility] hospital on above:Performed By: #### CBC, BMPX #### [facility] [address] [place] [address] Marketing And Development Coordinator: Preet Castillo MDHemoglobin (Bld) [Mass/Vol]14.1 g/dLNormal 13.0-17.0[facility] HospitalComvon [facility]lander [facility] on above:Performed By: #### CBC, BMPX #### [facility] [address] [place] [address] Marketing And Development Coordinator: Preet Castillo MDImmature granulocytes/100 WBC (Bld)0 %Normal0 [facility] on above:Performed By: #### CBC, BMPX #### [facility] [address] [place] [address] Marketing And Development Coordinator: Preet Castillo MDLymphocytes (Bld) [#/Vol]1.38 10*3/uLNormal 1.10-3.70MerEvergreenHealth MonroeComvon voigtlander women's hospital on above:Performed By: #### CBC, BMPX #### [facility] [address] [place] [address] Marketing And Development Coordinator: Napoleon Jamesmphocytes/100 WBC (Bld)24 %Cpjpcr00-50RsoplEvergreenHealth MonroeComvon voigtlander women's hospital on above:Performed By: #### CBC, BMPX #### [facility] [address] [facility]. [place] [address] Marketing And Development Coordinator: RODNEY JamesCH (RBC) [Entitic mass]32.1 qzLctivv75.2-33.5 [facility] HospitalComment on above:Performed By: #### CBC, BMPX #### [facility] [address] [facility] [place] [address] Marketing And Development Coordinator: RODNEY JamesCHC (RBC) [Mass/Vol]34.5 g/lUOlbqzj27.4-34.8 [facility] HospitalComvon [facility] on above:Performed By: #### CBC, BMPX #### [facility] [address] [place] [address]. [place] [address] Marketing And Development Coordinator: RODNEY JamesCV (RBC) [Entitic vol]93.2 vTKwrski51.6-102.9 [facility] HospitalComment on above:Performed By: #### CBC, BMPX #### [facility] [address] [place] [address]. [place] [address] Marketing And Development Coordinator: RODNEY Jamesonocytes (Bld) [#/Vol]0.73 10*3/uLNormal 0.10-1.20[facility] HospitalComvon [facility] on above:Performed By: #### CBC, BMPX #### [facility] [address] [place] [address]. [place] [address] Marketing And Development Coordinator: RODNEY Jamesonocytes/100 WBC (Bld)13 %High3-12[facility] HospitalComvon [facility] on above:Performed By: #### CBC, BMPX #### [facility] [address] [place] [address]. [place] [address] Marketing And Development Coordinator: Preet Castillo MDNeutrophil (Seg)56 %Mlbyyx55-65BhuqxOhiohealth Grove City Methodist HospitalComvon [facility] on above:Performed By: #### CBC, BMPX #### [facility] [address] [facility] [place] [address] Marketing And Development Coordinator: VIDAL James Automated0.0 per 100 WBCNormal0.0[facility] on above:Performed By: #### CBC, BMPX #### [facility] [address] [place] [address]. [place] [address] Marketing And Development Coordinator: Drew James mean volume (Bld) [Entitic vol]10.4 fL Normal8.1-13.5[facility] on above:Performed By: #### CBC, BMPX #### [facility] [address] [place] [address] Marketing And Development Coordinator: Darlyn James (Bld) [#/Vol]135 10*3/lOHfn424-208 [facility] HospitalComment on above:Performed By: #### CHARLIE, BMPX #### [facility] [address] [place] [address] Marketing And Development Coordinator: LISBETH James (Bld) [#/Vol]4.39 10*6/uLNormal4.21-5.77 [facility] HospitalComvon [facility] on above:Performed By: #### CBC, BMPX #### [facility] [facility] [place] [address] Marketing And Development Coordinator: CHRISTINE James (Bld) [#/Vol]5.8 10*3/uLNormal3.5-11.3MSwedish Medical Center IssaquahComvon [facility] on above:Performed By: #### CBC, BMPX #### [facility] [address] [place] [address]. [place] [address] Marketing And Development Coordinator: Preet Castillo MDAuto Diff PerformedNOT REPORTEDNormalDetwiler Memorial Hospital on above:Performed By: #### CBC, BMPX #### [facility] [address] [facility] [place] [address] Marketing And Development Coordinator: ANJUM Jameslatelet EstimateNOT REPORTEDNormalDetwiler Memorial Hospital on above:Performed By: #### CBC, BMPX #### [facility] [address] [facility] [place] [address] Marketing And Development Coordinator: LISBETH James morphology finding Nom (Bld)NOT REPORTED NormalOhiohealth Grove City Methodist HospitalComvon [facility] on above:Performed By: #### CBC, BMPX #### [facility] [address] [place] [address]. [place] [address] Marketing And Development Coordinator: CHRISTINE James MorphologyNOT REPORTEDNormFayette County Memorial Hospital on above:Performed By: #### CBC, BMPX #### [facility] [facility] [place] [address] Marketing And Development Coordinator: Jade James Metabolic Profon 07-15-2020(cont.)Normal [facility] on above:Result Comment: Average GFR for 70 or more years old: 75 mL/min/1.73sq m Chronic Kidney Disease: <60 mL/min/1.73sq m Kidney failure: <15 mL/min/1.73sq m eGFR calculated using average adult body mass. Additional eGFR calculator available at: http://www.[employer]/multiple_crcl_2012.htmPerformed By: #### CBC, BMPX #### [facility] [address] [facility] [place] [address] Marketing And Development Coordinator: Jimmie James Phos71 U/TLsbugr73-057Chcxz [facility] HospitalComment on above:Performed By: #### CBC, BMPX #### [facility] [address] [place] [address] Marketing And Development Coordinator: Preet Castillo MDBUN/CRE Qdnup42Vtcq6-61Hgelw [facility] Comment on above:Performed By: #### CBC, BMPX #### [facility] [address] [place] [address] Marketing And Development Coordinator: Preet Castillo MDGFR, Amer>60Normal>60[facility] Memorial HospitalComment on above:Performed By: #### CBC, BMPX #### [facility] [address] [place] [address] Marketing And Development Coordinator: Preet Castillo MDGFR,non Amer>60Normal>60MerEvergreenHealth MonroeComment on above:Performed By: #### CBC, BMPX #### [facility] [address] [place] [address] Marketing And Development Coordinator: Preet Castillo MDProtein [Mass/Vol]6.7 g/dLNormal6.4-8.3Mer[facility] Prosser Memorial HospitalComment on above:Performed By: #### CBC, BMPX #### [facility] [address] [place] [address] Marketing And Development Coordinator: Preet Castillo MDUrea nitrogen [Mass/Vol]26 mg/dLHigh8-23Mer[facility] Memorial HospitalComment on above:Performed By: #### CBC, BMPX #### [facility] [address] [place] [address] Marketing And Development Coordinator: Preet Castillo MDAlbumin/Glob RatioNOT REPORTEDNormal1.0-2.5 [facility] HospitalComment on above:Performed By: #### CBC, BMPX #### [facility] [address] [place] [address] Marketing And Development Coordinator: KORY Jamsetaging:NOT REPORTEDNormalOhiohealth Grove City Methodist HospitalComment on above:Performed By: #### CBC, BMPX #### [facility] [address] [place] [address] Marketing And Development Coordinator: Jade James Metabolic ProfOrdered By: Elisa Ferraro on 20-51-6962Cmhuzpo [Mass/Vol]4.1 g/dLNormal3.5-5.2Mnew[facility] [employer] Work Phone: comment on above:Performed By: #### CBC, BMPX #### [facility] [facility] [place] [address] Marketing And Development Coordinator: Preet Castillo MDALT [Catalytic activity/Vol]12 U/LNormal5-41 [facility] [employer] Work Phone: comment on above:Performed By: #### CHARLIE, BMPX #### [facility] [place] [address] Marketing And Development Coordinator: Khalida James gap [Moles/Vol]13 mmol/LNormal9-17[facility] [employer] Work Phone: comment on above:Performed By: #### CBC, BMPX #### [facility] [address] [place] [address] Marketing And Development Coordinator: Preet Castillo MDAST [Catalytic activity/Vol]16 U/LNormal<40 [facility] Work Phone: comment on above:Performed By: #### CBC, BMPX #### [facility] [address] [place] [address] Marketing And Development Coordinator: Preet Castillo MDBilirubin [Mass/Vol]0.55 mg/dLNormal0.3-1.2 [facility] [employer] Phone: comment on above:Performed By: #### CBC, BMPX #### [facility] [address] [place] [address] Marketing And Development Coordinator: DEONTE Jamesalcium [Mass/Vol]8.7 mg/dLNormal8.6-10.4[facility] [employer] Work Phone: comment on above:Performed By: #### CHARLIE, BMPX #### [facility] [facility] [place] [address] Marketing And Development Coordinator: DEONTE Jameshloride [Moles/Vol]105 mmol/JRkowiu25-934Djwby [employer] Work Phone: comment on above:Performed By: #### CHARLIE, BMPX #### [facility] [facility] [place] [address] Marketing And Development Coordinator: DEONTE JamesO2 [Moles/Vol]21 mmol/DFtknuc07-06Vxrpn [employer] Phone: comment on above:Performed By: #### CHARLIE, BMPX #### [facility] [facility] [place] [address] Marketing And Development Coordinator: DEONTE Jamesreatinine [Mass/Vol]0.64 mg/dLLow0.70-1.20 [facility] [employer] Phone: comment on above:Performed By: #### CHARLIE, BMPX #### [facility] [address] [place] [address] Marketing And Development Coordinator: Preet Castillo MDGlucose [Mass/Vol]88 mg/zERrnawh31-61Qzuku [employer] Work Phone: comment on above:Performed By: #### CBC, BMPX #### [facility] [address] [place] [address] Marketing And Development Coordinator: Preet Castillo MDPotassium [Moles/Vol]4.7 mmol/LNormal3.7-5.3 [facility] [employer] Phone: comment on above:Performed By: #### CBC, BMPX #### [facility] [address] [place] [address] Marketing And Development Coordinator: Preet Castillo MDSodium [Moles/Vol]139 mmol/YKlqhmt798-606Twgej [employer] Phone: comment on above:Performed By: #### CBC, BMPX #### [facility] [address] [place] [address] Marketing And Development Coordinator: DEONTE Jamesomprehensive Metabolic PanelOrdered By: Elisa Ferraro on [id number]/Globulin RatioNOT REPORTEDOhio State Harding HospitalK121 Phone: aLP (Bld) [Catalytic activity/Vol]71 U/L40 - 129 U/L [facility] HospitalCreativ[facility] Studios Phone: Free PSA/Total PSA [Mass fraction]6.7 g/dL6.4 - 8.3 g/dLOhio State Harding HospitalK121 Phone: GFR >60>60 mL/minOhio State Harding HospitalK121 Phone: GFR Non->60>60 mL/minOhio State Harding HospitalK121 Phone: GFR/1.73 sq M.predicted MDRD (S/P/Bld) [Vol rate/Area] [facility] HospitalCreativ[facility] Studios Phone: comment on above:Average GFR for 70 or more years old: 75 mL/min/1.73sq m Chronic Kidney Disease: <60 mL/min/1.73sq m Kidney failure: <15 mL/min/1.73sq m eGFR calculated using average adult body mass. Additional eGFR calculator available at: http://www.[employer]/multiple_crcl_2012.htm GFR/1.73 sq M.predicted MDRD (S/P/Bld) [Vol rate/Area]NOT REPORTEDKettering Health Springfield [employer] Phone: Interpretation and review of laboratory results AbnormalOhiohealth O'[facility] Hospital [employer] Phone: Urea nitrogen (BldV) [Mass/Vol]26 mg/dLHigh8 - 23 mg/dLOhiohealth O'[facility] [employer] Phone: Urea nitrogen/Creatinine (Bld) [Mass ratio]41HighKettering Health Springfield [employer] Phone: [facility] [employer] Phone: MRSA, DNA, Nasalon 12-82-8633Fsdwcvln Description .NASAL SWABNormalOhiohealth Grove City Methodist HospitalComment on above:Performed By: #### MRSANO #### [facility] [address] [place] [id number] Marketing And Development Coordinator: Preet Castillo MD [place] [id number] Marketing And Development Coordinator: Aldo Woo [id number] Coag (PPP) [Relative time]1.8 {INR}NormalOhiohealth Grove City Methodist HospitalComment on above:Result Comment: Non-therapeutic Range: INR = 0.9-1.2 Therapeutic Range: Moderate Anticoagulant Intensity: INR = 2.0-3.0 High Anticoagulant Intensity: INR = 2.5-3.5Performed By: #### CBC, BMPX #### [facility] [address] [place] [address] Marketing And Development Coordinator: VANDANA James Coag (PPP) [Time]20.8 sHigh11.5-14.2MPremier Health Atrium Medical Centere HospitalComment on above:Performed By: #### CBC, BMPX #### [facility] [address] [place] [address] Marketing And Development Coordinator: ANJUM Jamesrotime-INROrdered By: Elisa Ferraro on 16-09-8832MZR Coag (Bld) [Relative time]1.8 {INR}[facility] [employer] Work Phone: comment on above: Non-therapeutic Range: INR = 0.9-1.2 Therapeutic Range: Moderate Anticoagulant Intensity: INR = 2.0-3.0 High Anticoagulant Intensity: INR = 2.5-3.5 Interpretation and review of laboratory resultsAbnormNovant Health Forsyth Medical Center [employer] Work Phone: pT Coag (PPP) [Time]20.8 sHigSt. John of God Hospital [employer] Work Phone: [facility] [employer] Work Phone: sedimentation Rateon 66-45-9181Zebadoudgiayc Rate11 mm Normal0-20[facility] HospitalComment on above:Performed By: #### CBC, BMPX #### [facility] [address] [place] [address] Marketing And Development Coordinator: KORY Jamesedimentation RateOrdered By: Elisa Ferraro on 02-95-5766Iox Rate11 mm0 - 20 mmKettering Health Springfield [employer] Work Phone: [facility] [employer] Work Phone: TYPE AND SCREENOrdered By: Bari Pedro on 07-15-2020 ABO/RhPositiveKettering Health Springfield [employer] Work Phone: arm Band [id number] [employer] Work Phone: expiration Date08/12/2020,2359[facility] [employer] Work Phone: [facility] [employer] Work Phone: Type + Screenon [id number] + ScreenSample Expiration 08/12/2020,2359 Arm Band Number [id number] ABO/Rh(D) A POSITIVE Antibody Screen NEGATIVENormalMercy Prosser Memorial HospitalComment on above:Performed By: #### TYS #### [facility] [address] [place] [address] Marketing And Development Coordinator: RAVEN James w/Reflex Cultureon [id number], SemiQt,UrNegativeNormalNEGMercy Prosser Memorial HospitalComment on above:Performed By: #### UAX #### [facility] [address] [facility] [place] [address] Marketing And Development Coordinator: Kali James, UrineNegativeNormalNEGMerEvergreenHealth MonroeComvon [facility] on above:Performed By: #### UAX #### [facility] [address] [place] [address] Marketing And Development Coordinator: DEONTE Jameslarity (U)CLEARNormalCLEARMerEvergreenHealth MonroeComment on above:Performed By: #### UAX #### [facility] [address] [place] [address] Marketing And Development Coordinator: DEONTE Jamesolor (U)YELLOWNormalYELMercy Prosser Memorial Hospital Comment on above:Performed By: #### UAX #### [facility] [address] [place] [address] Marketing And Development Coordinator: Preet Castillo MDGlucose Ql (U)NegativeNormalNEGMercy Prosser Memorial HospitalComment on above:Performed By: #### UAX #### [facility] [address] [place] [address] Marketing And Development Coordinator: Preet Castillo MDKetones Ql (U)NegativeNormalNEGMercy Prosser Memorial HospitalComment on above:Performed By: #### UAX #### [facility] [address] [place] [address]. [place] [address] Marketing And Development Coordinator: Preet Castillo MDLeukocyte esterase Test strip Ql (U)Negative NormalNEGOhiohealth Grove City Methodist HospitalComment on above:Performed By: #### UAX #### [facility] [address] [place] [address] Marketing And Development Coordinator: Pelon Jamestrite,UrNegativeNormalNEGMerEvergreenHealth MonroeComvon [facility] on above:Performed By: #### UAX #### [facility] [address] [place] [address] Marketing And Development Coordinator: ANJUM James,Ur5.8Ktqbvx3.0-8.0[facility] Comment on above:Performed By: #### UAX #### [facility] [address] [place] [address] Marketing And Development Coordinator: Melany James Ql (U)NegativeNormalNEGMerEvergreenHealth MonroeComvon [facility] hospital on above:Performed By: #### UAX #### [facility] [address] [place] [address] Marketing And Development Coordinator: Kristal James. [place],Ur1.400Ioonjw1.005-1.030[facility] HospitalComvon [facility] on above:Performed By: #### UAX #### [facility] [address] [place] [address]. [place] [address] Marketing And Development Coordinator: Meg Jamesbilinogen,UrNormalNormalNORMMercy Sk[facility] on above:Performed By: #### UAX #### [facility] [address] [place] [address]. [place] [address] Marketing And Development Coordinator: DEONTE JamesommentNOT REPORTEDNormalMercy Prosser Memorial HospitalComment on above:Performed By: #### UAX #### [facility] [address] [place] [address] Marketing And Development Coordinator: Preet Castillo MDUrinalysis Reflex to CultureOrdered By: Elisa Ferraro on [id number] UrineNegativeNEGATIVEMercy Health Work Phone: color, UAYELLOWYELLOWMercy Health Work Phone: Glucose, UrNegativeNEGATIVEMercy Health Work Phone: Ketones Ql (U)NegativeNEGATIVEMercy Health Work Phone: leukocyte esterase Test strip Ql (U)NegativeNEGATIVE [facility] Work Phone: Nitrite, UrineNegativeNEGATIVEMercy Health Work Phone: pH, UA5.5[facility] Work Phone: protein, UANegativeNEGATIVEMercy Health Work Phone: specific [place], UA1.025[facility] Work Phone: Turbidity UACLEARCLEARMercy Health Work Phone: Urinalysis CommentsNOT REPORTEDMercy Health Work Phone: Urine HgbNegativeNEGATIVEMercy Health Work Phone: Urobilinogen, UrineNormalNormalMercy Health Work Phone: [facility] Work Phone: cNOVon [phone] Visit (VASSFT) --------YANELIS NORIEGA ([id number]) 1945 [facility] Time Provider Department08/13/17 11:45 AM CURT CHOWDHURY During your visit today, we recorded the following information about you: Pulse Respiration Blood pressure Weight 66/minute 16/minute 123/70 80.7 kg Height 1.689 Cameron Chowdhury MD 08/13/2017 12:05 PM [facility] InstituteRob[facility] and Arely [facility] Department of Cardiovascular MedicineOUTPATIENT VISIT DATE August 13, 2017OUTPATIENT VISIT TYPENEWPRIMARY CARE PHYSICIAN:Blu Velez MD ([facility])[address] [place], [place] [address]Ibjgo: [phone]: [phone] PHYSICIANBearlen Velez MD ([facility])[address] [facility] [address]IRMRT COMPLAINT:No chief complaint on file.HISTORY OF PRESENT [...] Velez 07/24/2017.He has had previous unprovoked DVT inthe left leg 2010 which had beenassociated with [...] Alcohol use Yes Comment: 3-4 beers dailyFAMILY HISTORYProblemRelation Age of Onset- Diabetes Mother- Stroke Mother- Lipids Mother- Hypertension Mother- Arthritis Father- Cancer Father- Colon Cancer Sister- Coronary Artery Disease Brother- Cancer Brother- Myesthenia Gravis [Other] [OTHER] Mother- HTN [Other] [OTHER] Mother- HYperlipidemia [Other] [OTHER] Mother- CHF [Other] [OTHER] Mother- Kidney removal [Other] [OTHER] Father- Dementia [Other] [OTHER] Father- Multiple myeloma [Other] [OTHER] BrotherALLERGIES:ALLERGIESAllergen Reactions- Iodine [Contrast Dy* Hives- Bactrim [Sulfametho* HivesMEDICATIONS:benazepril (LOTENSIN) 20 mg tablet Take 20 mg by mouth once daily.traMADol (ULTRAM) 50 mg tablet Take 50 mg by mouth as needed.clobetasol (TEMOVATE) 0.05 % cream Apply 1 application to affected area asneeded.fluocinonide (LIDEX) 0.05 % cream Apply 1 application to affected area asneeded.warfarin 2 mg tablet Take 1 tablet by mouth once daily. 2mg/3mgWed-Sunatorvastatin (LIPITOR) 10 mg ORAL tablet ONCE DAILYREVIEW [...] toes warmPalp DP pulses bilaterallyNo leg edema bilaterallynontenderCARDIOVASCULAR MEDICINE TESTING:I have personally reviewed the DUS LLE DVT.IMPRESSION/PLAN:Mr. 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 May undergo furtherevaluation with hematology for further evaluation.Consider changing coumadin to NOAC to ease anticoagulation.He may follow up as needed.uCrt Chowdhury, MDReferring Provider: BLU VELEZ [[id number]]Allergies As of Date: 08/13/2017 Noted Allergy ReactionIODINE (CONTRAST DYE) 03/15/2010 4 - HivesBACTRIM (SULFAMETHOXAZOLE-TRIMETH*06/11/2015 4 - HivesDate Reviewed: 08/13/2017Reviewed by: Curt Chowdhury - Fully AssessedPrimary Visit Diagnosis:Personal history of DVT (deep vein thrombosis) [Z86.718]Prescriptions as of 08/13/2017 Sig: BENAZEPRIL 20 MG TABLET Take 20 mg by mouthonce ramon* TRAMADOL 50 MG TABLET Take 50 [...] region [M25.519] INVALID FOR* Muscular wasting and disuseatrophy, not elsewh*INVALID FOR* Thrombocytopenia (HCC) [D69.6] INVALID FOR* Leukopenia [D72.819] INVALID FOR* Unintentional weight change [R68.89] INVALID FOR*Medications Discontinued During This Encounter benazepril 20 mg ORAL tablet 0 03/15/2010 08/13/2017 Class: Med Update Route: ORAL Sig: Disc: Dosage adjustment oxyCODONE-acetaminophen (PERCOCET) 5* 12/23/2015 08/13/2017 Class: Historical Med Route: ORAL Sig: Take 1 tablet by mouth every 8 hours as needed. Disc: Discontinued by PatientDisposit ion: Return if symptoms worsen or fail to improve.Follow-up and Disposition History RecordedEncounter Number: [id number] Status:Closed by CURT CHOWDHURY MD on 08/13/17[facility] 08-13-2017 PROGRESSHNO ID: [id number]: Curt Benson: (none)Author Type: PhysicianType: Progress NotesFiled: 08/13/2017 12:05 PMNote Text:[facility] and [facility]relySaint [facility] Department of Cardiovascular MedicineOUTPATIENT VISIT DATE August 13, 2017OUTPATIENT VISIT TYPENEWPRIMARY CARE PHYSICIAN:Blu Velez MD ([facility])[address] [facility], [place] [address]Rfico: [phone]: [phone] PHYSICIANBearlen Velez MD ([facility])[address] [facility] [address]SXYJT COMPLAINT:No chief complaint on file.HISTORY OF PRESENT ILLNESS:Yanelis Noriega was referred for consultation by Dr. Velez. Opinions andrecommendations in this consultation will be transmitted back to thereferring physician by Epic notes or via mail.Mr. 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 which had beenassociated with a TIA due to paradoxical embolizationfrom PFO.Nonsmoker.Denies significant leg edema.PAST MEDICAL HISTORYDiagnosis Date- [...] [Other] [OTHER] Father- Multiple myeloma [Other] [OTHER] BrotherALLERGIES:ALLERGIESAllergen Reactions- Iodine [Contrast Dy* Hives- Bactrim [Sulfametho* HivesMEDICATIONS:benazepril (LOTENSIN) 20 mg tablet Take 20 mg by mouth once daily.traMADol (ULTRAM) 50 mg tablet Take 50 mg by mouth as needed.clobetasol(TEMOVATE) 0.05 % cream Apply 1 application to affected area asneeded.fluocinonide (LIDEX) 0.05 % cream Apply 1 application to affected area asneeded.warfarin 2 mg tablet Take 1 tablet by mouth once d aily. 2mg/3mg Wed-Sunatorvastatin (LIPITOR) 10 mg ORAL tablet [...] toes warmPalp DP pulses bilaterallyNo leg edema bilaterallynontenderCARDIOVASCULAR MEDICINE TESTING:I have personally reviewed the DUS LLE DVT.IMPRESSION/PLAN:Mr. Noriega is a 72 year old male with chronic left leg DVT dating backto 2010.Given severity of complications associated with his last unprovoked VTE, Iwould advise against discontinuing anticoagulation. May undergo furtherevaluation with hematology for further evaluation.Consider changingcoumadin to NOAC to ease anticoagulation.He may follow up as needed.Curt Chowdhury MDNormKettering Health [facility] Vital Signs Date TimeVital SignValuePerforming RxfpwyqlcLomsifku37-17-3088 10:40-0400Body qtenip441.18 cmBenjamin Ball DO Work Phone: [phone])[address]10-27-2025 10:40-0400 Body mass index (BMI) [Ratio]29 kg/d9Ousbokml Ball DO Work Phone: 1(363)[address] [place], [place] 4578810-27-2025 10:40-0400 Body sddzwlniybc35.6 [degF]Blu Ball DO Work Phone: 1(300)[address] [place], [place] 4578810-27-2025 10:40-0400 Body bsxoym03.97 kgBenjamin Ball DO Work Phone: 1(083)[address] [place], [place] 4578810-27-2025 10:40-0400 Diastolic blood whghagww90 mm[Hg]Blu Ball DO Work Phone: 1(839)[address] [place], [place] 4578810-27-2025 10:40-0400 Heart rate58 /minBenjamin Ball DO Work Phone: 1(674)[address] [place], [place] 4578810-27-2025 10:40-0400 SaO2% (BldA) [Mass fraction]98 %Blu Ball DO Work Phone: 1(147)[address] [place], [place] 4578810-27-2025 10:40-0400 Systolic blood dyixwdno027 mm[Hg]Blu Ball DO Work Phone: 1(956)[address] [place], [place] 4578810-23-2025 11:23-0400 Body mdysih821.7 cmAshutosh Brown DPM Work Phone: [facility]SmithvilleEjwwyxkjco65-20-1201 11:23-0400Body mass index (BMI) [Ratio]27.37 kg/d4Zghnfbtc Brown DPM Work Phone: no[facility] HospitalVqnfeysmvd81-90-8502 11:23-0400Body wdkxyc06.65 kgAshutosh Brown DPM Work Phone: 1(419)626-[address] [place], [place] [address]Dldvqeescg95-14-7827 11:23-0400Respiratory rate16 /Corbin Miller DPM Work Phone: [facility]villeSfxqhvxwkx61-68-3350 09:29-0400Diastolic blood zvohbmdj18 mm[Hg]Chey Holm MD Work Phone: [facility]SmithvilleOnhoevouqo52-57-1005 09:29-0400Systolic blood clklesee200 mm[Hg]Chey Holm MD Work Phone: [facility]SmithvilleCudwlsbbzc56-57-3350 10:35-0400Body dhwqhe879.7 cmJonathanmathew Miller DPM Work Phone: [facility]SmithvilleEqsnosnflu54-58-9354 10:35-0400Body mass index (BMI) [Ratio]27.37 kg/a2PibisyjwAshutosh Miller DPM Work Phone: [facility]SmithvilleIlzaxnivqi27-18-3543 10:35-0400Body gvtakb64.65 kgAshutosh Miller DPM Work Phone: [facility]SmithvilleCocpdoncqp77-87-8877 10:35-0400Respiratory rate18 /Corbin Miller DPM Work Phone: [facility]SmithvilleCgahbrfkjf16-24-8301 13:33-0400Body rwlodw010.18 cm[facility]06-09-2025 13:33-0400Body mass index (BMI) [Ratio]28 kg/a5GcdflpnuhOhiohealth Grove City [facility] Hospital06-09-2025 13:33-0400Body weight 81.19 kgOhio[facility]06-09-2025 13:33-0400Diastolic blood skytmqwd29 mm[Hg][facility]06-09-2025 13:33-0400Heart rate62 /[facility]06-09-2025 13:33-0400Respiratory rate12 /[facility]06-09-2025 13:33-0400Systolic blood sljruntt600 mm[Hg][facility]05-07-2025 10:46-0400Body hwyrvl066.5 Deedee Johnson MD Work Phone: 1(440)414-[address] [place], [place] 1973405-07-2025 10:46-0400 Body mass index (BMI) [Ratio]27.96 kg/a0PctgtzTeo Johnson MD Work Phone: 1(652)230-[address] [place], [place] 1973405-07-2025 10:46-0400 Body ijykoa20.19 kgTeo Johnson MD Work Phone: 1(548)[address]05-07-2025 10:46-0400 Diastolic blood jffievij10 mm[Hg]Teo Johnson MD Work Phone: 1(103)[address]05-07-2025 10:46-0400 Heart rate68 /minTeo Johnson MD Work Phone: 1(146)[address]05-07-2025 10:46-0400 Systolic blood yaprbkvr605 mm[Hg]Teo Johnson MD Work Phone: 1(410)705-[address] [place], [place] 1973403-10-2025 16:00-0400 Diastolic blood cjhoubpl71 mm[Hg]Blu Ball DO Work Phone: [facility]03-10-2025 16:00-0400 Heart rate72 /minBenjamin Ball DO Work Phone: [facility]03-10-2025 16:00-0400 Respiratory rate16 /minBenjamin Ball DO Work Phone: [facility]03-10-2025 16:00-0400 SaO2% (BldA) [Mass fraction]97 %Blu Ball DO Work Phone: [facility]03-10-2025 16:00-0400 Systolic blood mm[Hg]Blu Ball DO Work Phone: [facility]03-10-2025 09:06-0400 Body yfttia434.72 cmBenjamin Ball DO Work Phone: [facility]03-10-2025 09:06-0400 Body nbawisdksol75 [degF]Blu Ball DO Work Phone: [facility]03-10-2025 09:06-0400 Body vnmrez67 kgBenjamin Ball DO Work Phone: [facility]03-06-2025 11:25-0500 Body .7 cmStellagera Miller DPM Work Phone: [facility]villeWgsxiusyle67-74-4930 11:25-0500Body mass index (BMI) [Ratio]27.37 kg/i7Pmqixbic Osorio DPM Work Phone: [facility]villePfjltudqkz30-57-2072 11:25-0500Body wpmefa92.65 kgJonathanshanellgera Miller DPM Work Phone: [facility]villeGqarodrnpt96-38-8898 11:25-0500Respiratory rate18 /minAshutosh Miller DPM Work Phone: [facility]villeHlyagfzgzd94-41-9407 10:12-0500Diastolic blood ksebttgm44 mm[Hg]Salena [address] [place], [place] 7080602-11-2025 10:12-0500 Heart rate63 /minEly [address] [place], [place] 7080602-11-2025 10:12-0500 Systolic blood qqaqnjzf628 mm[Hg][address] 03-26-2024 11:36-0500Body udjsvn818.5 cmTeo Johnson MD Work Phone: [facility]01-29-2025 11:36-0500 Body mass index (BMI) [Ratio]27.93 kg/q7XzbcxjTeo Johnson MD Work Phone: [facility]01-29-2025 11:36-0500 Body qbiqfm60.1 kgTeo Johnson MD Work Phone: [facility]01-29-2025 11:36-0500 Diastolic blood nyiuoyia29 mm[Hg]Teo Johnson MD Work Phone: [facility]01-29-2025 11:36-0500 Heart rate72 /minTeo Johnson MD Work Phone: [facility]01-29-2025 11:36-0500 Systolic blood gnpwuwea918 mm[Hg]Teo Johnson MD Work Phone: [facility]12-26-2024 11:45-0500 Body utstcl923.7 cmNicmathew Brown DPM Work Phone: [facility]SmithvilleYawmddrhbg70-43-5983 11:45-0500Body mass index (BMI) [Ratio]27.37 kg/e9Mgggaxzq Brown DPM Work Phone: [facility]SmithvilleXiyfpvbdjh87-08-0462 11:45-0500Body cyflgj65.65 kgNicholas Brown DPM Work Phone: [facility]SmithvilleTnisdzgfre92-99-9699 11:45-0500Respiratory rate18 /minNicshanellgera Brown DPM Work Phone: [facility]SmithvilleDnojifewsz10-42-5409 13:32-0500Body oubaws367.72 cmBenjamin Ball DO Work Phone: [facility]12-18-2024 13:32-0500 Body mass index (BMI) [Ratio]27.5 kg/v3Madtflyl Ball DO Work Phone: [facility]12-18-2024 13:32-0500 Body ajcjqr38.1 kgBenjamin Ball DO Work Phone: [facility]12-18-2024 13:32-0500 Diastolic blood gbudmrjm42 mm[Hg]Blu Ball DO Work Phone: [facility]12-18-2024 13:32-0500 Heart rate65 /minBenjamin Ball DO Work Phone: [facility]12-18-2024 13:32-0500 Respiratory rate12 /minBenjamin Ball DO Work Phone: [facility]12-18-2024 13:32-0500 Systolic blood xgdcpybp566 mm[Hg]Blu Ball DO Work Phone: [facility]10-17-2024 11:28-0400 Body lstyff191.7 cmStellagera Miller DPM Work Phone: [facility]SmithvilleAtaggozlrt50-72-3657 11:28-0400Body mass index (BMI) [Ratio]27.37 kg/p6Jqzihjsh Brown DPM Work Phone: [facility]SmithvilleQddjizzdux74-29-4997 11:28-0400Body gxemho66.65 kgJonathanshanellgera Miller DPM Work Phone: [facility]SmithvilleVaisgcdflp46-21-7263 11:28-0400Diastolic blood huuqxdbv34 mm[Hg]Ashutosh Miller DPM Work Phone: [facility]SmithvilleGbguaodujf96-46-0984 11:28-0400Heart rate85 /min Ashutosh Miller DPM Work Phone: [facility]villeEusldgppfe45-58-9486 11:28-0400Systolic blood ggrtlmuk846 mm[Hg]Ashutosh Miller DPM Work Phone: [facility]SmithvilleArlntvxkof04-77-9219 13:48-0400Body xatxli514.72 cmDO Blu Ball Work Phone: [facility]09-24-2024 13:48-0400 Body mass index (BMI) [Ratio]27.8 kg/m2DO Blu Ball Work Phone: [facility]09-24-2024 13:48-0400 Body dxkmipvkcxv61.8 [degF]DO Blu Ball Work Phone: [facility]09-24-2024 13:48-0400 Body ltqwee48 kgDO Blu Ball Work Phone: [facility]09-24-2024 13:48-0400 Diastolic blood augrwiqd30 mm[Hg]DO Blu Ball Work Phone: [facility]09-24-2024 13:48-0400 Heart rate75 /minDO Blu Ball Work Phone: [facility]09-24-2024 13:48-0400 SaO2% (BldA) [Mass fraction]97 %DO Blu Ball Work Phone: [facility]09-24-2024 13:48-0400 Systolic blood rrdhlaxd739 mm[Hg]DO Blu Ball Work Phone: [facility]06-14-2024 09:17-0400 Body konmxa320.72 cmOhio[facility]06-14-2024 09:17-0400Body mass index (BMI) [Ratio]27.8 kg/v5VksrcujlnOhiohealth Grove City Methodist Hospital06-14-2024 09:17-0400Body yysssh41.23 kgOhiohealth [facility]06-14-2024 09:17-0400Diastolic blood mm[Hg][facility] 08-10-2023 09:17-0400Heart rate66 /[facility] 08-10-2023 09:17-0400Respiratory rate16 /[facility] 08-10-2023 09:17-0400Systolic blood lrxwawee311 mm[Hg][facility]03-14-2024 08:37-0400Body .72 cmOhio[facility]03-14-2024 08:37-0400Body mass index (BMI) [Ratio]28.5 kg/f4OhkmmleyuOhiohealth [facility] City [facility] Hospital03-14-2024 08:37-0400Body .27 kgOhiohealth [facility]03-14-2024 08:37-0400Diastolic blood ieiqpsoa80 mm[Hg] [facility]03-14-2024 08:37-0400Heart rate76 /[facility]03-14-2024 08:37-0400Respiratory rate20 /[facility]03-14-2024 08:37-0400Systolic blood ahhyqiik113 mm[Hg] [facility]02-22-2024 10:19-0500Body lznaor018.72 cm [facility]02-22-2024 10:19-0500Body mass index (BMI) [Ratio]27.4 kg/x6NwhbbrboxOhiohealth Grove City [facility] Hospital02-22-2024 10:19-0500Body mmsasa12.81 kgOhiohealth Grove City [facility]02-22-2024 10:19-0500Diastolic blood qzmdhymd96 mm[Hg][facility]02-22-2024 10:19-0500 Heart rate74 /[facility]02-22-2024 10:19-0500 Respiratory rate20 /[facility]02-22-2024 10:19-0500 Systolic blood kcesyvkh427 mm[Hg][facility]12-14-2023 09:00-0500Body .72 cmOhiohealth [facility]12-14-2023 09:00-0500Body glcpro65.91 kgOhiohealth Grove City [facility] Hospital12-14-2023 09:00-0500Diastolic blood ncvrpimc34 mm[Hg][facility] 02-08-2023 09:00-0500Systolic blood emigxnts370 mm[Hg][facility]10-26-2023 10:35-0400Body jlmvla396.[address] [place], [place] 5415410-26-2023 10:35-0400Body mass index (BMI) [Ratio]28.51 kg/m2Ely [address] [place], [place] 9703810-26-2023 10:35-0400Body ewyiom92.[address] [place], [place] 9703809-14-2023 10:17-0400Diastolic blood lnzdqury47 mm[Hg]Blu Hylton Ball Work Phone: mp-[facility] [address] DO Work Phone: 1(163) 362-995109-14-2023 10:17-0400Systolic blood osjngzps150 mm[Hg] Blu Velez Work Phone: [facility] [address] DO Work Phone: 1(724) 958-675609-14-2023 09:57-0400Diastolic blood zkcjdvyl80 mm[Hg] Blu Velez Work Phone: [facility] [address] DO Work Phone: 1(524) 132-645709-14-2023 09:57-0400Systolic blood evnxemsu897 mm[Hg] Blu E Ball Work Phone: mp462-5282JJ-Ukxpt [facility] [address] DO Work Phone: 1(073)[phone] 09:56-0400Body byzclr009.18 cmBenjamin E Ball Work Phone: mp802-8606NE-Hepim [facility] [address] DO Work Phone: 1(527)[phone] 09:56-0400Body mass index (BMI) [Ratio] 28.51 kg/t8Htdxugcv E Ball Work Phone: mp685-4203KP[facility]fgmEss[facility] 250 DO Work Phone: 1([phone] 09:56-0400Body surface area Derived from formula1.94 z7Gezvkvnn E Ball Work Phone: mp641-5494HI-EjwdzEssentia Health-[facility] 250 DO Work Phone: 1(896)[phone] 09:56-0400Body uzigvs59.56 kgBenjamin E Ball Work Phone: mp651-8354QC-Jahsu [facility] [address] DO Work Phone: 1(585)920-980-310907-28 09:56-0400Diastolic blood bkqowasc06 mm[Hg] Blu E Ball Work Phone: mp364-4351RI-Kkepl [facility] [address] DO Work Phone: 1(876)450-358-379298-57 09:56-0400Heart rate61 /minBenjamin E Ball Work Phone: mp932-3887AR-Squhp [facility] [address] DO Work Phone: 1(167)[phone] 09:56-0400Systolic blood mm[Hg] Blu E Ball Work Phone: mp073-6324VJ-Pedux [facility] [address] DO Work Phone: 1(637) 324-138507-11-2023 10:00-0400Body .72 cmBenjamin Ball Other [facility] [employer] Other 07-11-2023 10:00-0400Body mass index (BMI) [Ratio] 27.91 kg/i0Hgkksrhb Ball Other [facility] [employer] Other 07-11-2023 10:00-0400Body umyvee68.28 kgBenjamin Ball Other [facility] [employer] Other 07-11-2023 10:00-0400Diastolic blood kuqabycj96 mm[Hg] Blu Ball Other [facility] [employer] Other 07-11-2023 10:00-0400Respiratory rate20 /minBenjamin Ball Other [facility] [employer] Other 07-11-2023 10:00-0400Systolic blood glikirwh493 mm[Hg] Blu Ball Other [facility] [employer] Other 07-05-2023 09:14-0400Blood Pressure LocationKathy Lue [facility]07-05-2023 09:14-0400Diastolic blood rfcbwpje97 mm[Hg]Clarisa Lue [facility]07-05-2023 09:14-0400Heart rate68 /minKathy Lue [facility]07-05-2023 09:14-0400Systolic blood uqdnyury949 mm[Hg]Clarisa Lue [facility]06-27-2021 07:16-0400Body wvigvdvtova13.1 [degF]Mamadou Adame MD Work Phone: [facility] [employer] Work Phone: 1(561) 595-608306-27-2021 07:16-0400Diastolic blood gfjhfxuq86 mm[Hg] Mamadou Adame MD Work Phone: [facility] [employer] Work Phone: 1(137)298-981271-33013066-39-1061 07:16-0400Heart rate67 /minMamadou Adame MD Work Phone: [facility] Work Phone: 1(486)[phone] 07:16-0400Respiratory rate16 /minMamadou Adame MD Work Phone: [facility] Work Phone: 1(904) [phone] 07:16-7511KzG7% (BldA) [Mass fraction]97 % Mamadou Adame MD Work Phone: [facility] [employer] Work Phone: 1(876) 626-454606-27-2021 07:16-0400Systolic blood rcaibhwc658 mm[Hg] Mamadou Adame MD Work Phone: [facility] [employer] Work Phone: 1(356) 184-629906-27-2021 05:53-0400Body mass index (BMI) [Ratio] 27.37 kg/w3DhsrnopaMamadou Adame MD Work Phone: [facility] [employer] Work Phone: 1(136) 827-977606-27-2021 05:53-0400Body tafoky42.65 kgMamadou Adame MD Work Phone: [facility] Work Phone: [phone] 11:09-0400Body aylsqo222.7 cmVirepasha Adame MD Work Phone: [phone] Work Phone: 1(234) 316-556006-15-2021 11:16-0400Body qcoheszspds13.4 [degF]Elisa Ferraro MD Work Phone: [facility] [employer] Work Phone: 1(855) 467-363206-15-2021 11:16-0400Diastolic blood wxymyrrk24 mm[Hg] Elisa Ferraro MD Work Phone: [facility] [employer] Work Phone: 1(465) 966-555006-15-2021 11:16-0400Heart rate73 /minElisa Ferraro MD Work Phone: [facility] [employer] Work Phone: 1(381) 117-425206-15-2021 11:16-0400Respiratory rate16 /minElisa Ferraro MD Work Phone: [facility] [employer] Work Phone: 1(932) 932-265106-15-2021 11:16-3959WpG1% (BldA) [Mass fraction]97 % Elisa Ferraro MD Work Phone: [facility] [employer] Work Phone: 1(265) 858-912406-15-2021 11:16-0400Systolic blood imwbxmul880 mm[Hg] Elisa Ferraro MD Work Phone: [facility] [employer] Work Phone: 1(138) 681-924306-15-2021 04:10-0400Body mass index (BMI) [Ratio]28.4 kg/l1BrhqkElisa Ferraro MD Work Phone: [facility] [employer] Work Phone: 1(832) 771-373406-15-2021 04:10-0400Body yofjoi40.73 kgElisa Ferraro MD Work Phone: [facility] [employer] Work Phone: 1(669) 320-596106-14-2021 08:01-0400Body rfkzix739.7 cmElisa Ferraro MD Work Phone: [facility] [employer] Work Phone: 1(723) [phone] 09:25-0400Body .7 cmSta [facility] [employer] Work Phone: 1(516) [phone] 09:25-0400Body mass index (BMI) [Ratio] 27.46 kg/m2Sta [facility] [employer] Work Phone: 1(936) 938-944705-20-2021 09:25-0400Body utxjxjsuaiz61.6 [degF]Sta [facility] Work Phone: 1(948) 511-966905-20-2021 09:25-0400Body osuavp53.92 kgSta 1[facility] Work Phone: 1(636) [phone] 09:25-0400Diastolic blood xwnhgpfu56 mm[Hg] Sta [facility] Work Phone: 1(100) 532-712205-20-2021 09:25-0400Heart rate69 /minSta 1[facility] Work Phone: 1(985) [phone] 09:25-0400Respiratory rate16 /minSta 1[facility] Work Phone: 1(292) 323-248305-20-2021 09:25-4931BtC6% (BldA) [Mass fraction]97 % Sta [facility] [employer] Work Phone: 1(612) 545-960305-20-2021 09:25-0400Systolic blood ptowmuze230 mm[Hg] Sta [facility] Work Phone: Encounters Encounter DateEncounter TypeCare ProviderFacilityStart: 12-22-2024 End: 65-15-9620udwzucliyxLovbodji Ball DO Work Phone: -[facility] Campustart: 12-22-2024 End: 59-20-8810Loscefk encounter procedureBenmary Clovis DO-[facility] Work Phone: Start: 12-18-2024 End: 71-34-2279Rfdamo flowsheetNicmathew Miller DPM Work Phone: [facility] PODIATRYStart: 12-18-2024 End: 69-09-4639Hpekwz flowsheetNicmathew Miller DPM Work Phone: [facility] PODIATRYStart: 12-18-2024 End: 68-91-8924Setyzpz encounter procedureNicholgera Miller DPM Work Phone: [facility] CI PODIATRYComment on above:Pain due to onychomycosis of toenails of both feet (Primary Dx); Xerosis cutisStart: 12-18-2024 End: 77-58-5076lkhlivwgidLDQPURKO A BROWNNot AvailableStart: 12-09-2024 End: 26-98-4023uxehepighvQvxkwjby Ball DO Work Phone: [facility] Work Phone: Start: 12-09-2024 End: 18-10-9028Oqwlmlq encounter procedureBerosalinamary Velez DO-[facility] Work Phone: Start: 11-27-2024 End: 36-57-4832Etocia Soco Holm MD Work Phone: [facility] DermatologyStart: 11-27-2024 End: 80-31-0666Ujyfoh Soco Holm MD Work Phone: [facility] DermatologyStart: 11-27-2024 End: 24-22-9204Evmxie follow up visit related to original Jackie Holm MD Work Phone: [facility] DermatologyComment on above:Encounter for postoperative wound checkStart: 11-27-2024 End: 47-70-9238iscvajikdxYSVWFJOW WILSONNot AvailableStart: 10-28-2024 End: 04-73-9276Ptivtl Soco Holm MD Work Phone: [facility] DermatologyStart: 10-28-2024 End: 91-19-5382Dggvzr Soco Holm MD Work Phone: [facility] DermatologyStart: 10-28-2024 End: 12-19-3192Eosuexm encounter procedureChey Holm MD Work Phone: [facility] DermatologyComment on above: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Start: 10-28-2024 End: 53-32-9545hcriqbsdskFWBHPUPA WILSONNot AvailableStart: 09-25-2024 End: 82-20-6261Wyyauz flowsheetAshutosh Miller DPM Work Phone: [facility] PODIATRYStart: 09-25-2024 End: 93-75-0473Grhgsi flowsheetAshutosh Miller DPM Work Phone: [facility] PODIATRYStart: 09-25-2024 End: 75-53-7140Zkdnnmy encounter procedureAshutosh Miller DPM Work Phone: [facility] CI PODIATRYComment on above:Pain due to onychomycosis of toenails of both feet (Primary Dx); Xerosis cutisStart: 09-25-2024 End: 84-12-6622luxqtsifgzVPTCWUHJ A BROWNNot AvailableStart: 38-24-2610Cfn- patient / Non-visitMelrose Area Hospitalole [facility] Work Phone: Start: 68-04-9356Fek-patient / Non-visitRamseysspam Tan MD [facility] Work Phone: Start: 57-48-0957Jwl-patient / Non-visitNicole [facility] Work Phone: Start: 08-18-2024 End: 65-82-2152Yeqyuls encounter procedureNatalie A Felter INDUSTRIAL TRAINER-ENVIRONMENTAL SAFETY SPECIALIST Work Phone: [facility] SWS DERMComment on above:Neoplasm of unspecified behavior of bone, soft tissue, and skinStart: 08-18-2024 End: 09-28-7190jhxhhfawinYCESIOT A FELTERNot AvailableStart: 08-18-2024 End: 82-16-2791Taymvz flowsheetNatalie A Felter INDUSTRIAL TRAINER-ENVIRONMENTAL SAFETY SPECIALIST Work Phone: [facility] SWS DERMStart: 08-18-2024 End: 60-48-2506Aehbwd flowsheetNatalie A Felter INDUSTRIAL TRAINER-ENVIRONMENTAL SAFETY SPECIALIST Work Phone: [facility] SWS DERMStart: 08-04-2024 End: 65-64-7326hwgsivhcbqHkdtvtsjoLouis [facility] Work Phone: Start: 08-04-2024 End: 21-54-3004Wovabaq encounter [facility] Work Phone: Start: 07-17-2024 End: 29-21-9670fzqksyuxtsBQTGXNZV A BROWNNot AvailableStart: 07-02-2024 End: 93-16-5585Kwkzqy outpatient visit 25 minutesTeo Johnson MD Work Phone: [facility] AnnistonComment on above:Coronary artery disease involving match-e-be-nash-she-wish band coronary artery of match-e-be-n[place]-wish band heart without angina pectoris; Hypertension, unspecified type; Hyperlipidemia, unspecified hyperlipidemia type; PFO (patent foramen ovale) ([facility]); History of DVT (deep vein thrombosis); High risk medication use; BMI 27.0-27.9,adult; Former smokerStart: 07-02-2024 End: 27-62-6088zgjfyvrncvSMUMNM M [facility] AmbulatoryStart: 05-05-2024 End: 01-27-2089Owqbhtwsx to same day surgery centerBerosalinamary Velez DO Work Phone: [facility] [employer] Work Phone: Start: 05-05-2024 End: 14-24-9413uefltwpquuTtvoylye Ball DO Work Phone: [facility] Work Phone: Start: 05-02-2024 End: [id number] encounter procedureBerosalinamary Ball DO Work Phone: [facility] Ntp-Dry-Fpqrxjti Testing Work Phone: Start: 05-02-2024 End: 14-99-3226dvmohtdknuExxnfqxw Clovis DO Work Phone: [facility] Work Phone: Start: [id number] for preprocedural laboratory examinationTeo JohnsonSouth [facility] Baptist Hospital Physician GroupStart: 05-01-2024 End: [id number] Jamari Miller DPM Work Phone: noMS CI PODIATRYStart: 05-01-2024 End: 97-69-4134Crhztn Jamari Miller DPM Work Phone: noms CI PODIATRYStart: 05-01-2024 End: 20-62-7862Nswbufp encounter procedureAshutosh Miller DPM Work Phone: noms CI PODIATRYComment on above:Pain due to onychomycosis of toenails of both feet (Primary Dx); Xerosis cutisStart: 05-01-2024 End: 74-33-7418qrwfziovcvZGJVYSWY A BROWNNot AvailableStart: 04-29-2024 End: 03-92-9706Dsxuuactpe hospital visit by Taj Alexander [address] [place], [place] [address]Comment on above:Shortness of breathStart: 04-29-2024 End: 01-74-4065kuetlmmslfMDFLSQWood County Hospitaltart: 04-08-2024 End: 08-21-7192Lwhbkdbpox hospital visit by Taj Clemons Stress [facility] 1 [facility] HospitalComment on above:Shortness of breathStart: 04-08-2024 End: 48-14-4321jzrxurkfzjOGQMUKKnox Community Hospitaltart: 03-26-2024 End: 72-23-0084Lgwzyc outpatient visit 25 minutesTeo Johnson MD Work Phone: [facility]istonComment on above:Primary hypertension (Primary Dx); PFO (patent foramen ovale) ([facility]); Shortness of breath; High risk medication use; History of DVT (deep vein thrombosis); Dyslipidemia; Overweight; BMI 27.0-27.9,adult; Former smokerStart: 03-26-2024 End: 54-80-3136awkoztefltSHAKFT [facility] AmbulatoryStart: 02-21-2024 End: 58-66-0089Lfcgwsmeseret Miller DPM Work Phone: noms CI PODIATRYStart: 02-21-2024 End: 36-52-9056Soomgm flowsRodri Miller DPM Work Phone: noms CI PODIATRYStart: 02-21-2024 End: 32-27-5116Qdkrrzz encounter procedureAshutsoh Miller DPM Work Phone: noms CI PODIATRYComment on above:Pain due to onychomycosis of toenails of both feet (Primary Dx); Xerosis cutisStart: 02-21-2024 End: 36-10-4442zpyoulrxgmMTABUGMN A BROWNNot AvailableStart: 00-63-4746Oup- patient / Non-visitBenjamin Ball DO Work Phone: [facility] Work Phone: Start: 02-13-2024 End: 37-73-9205Lzkdwoo encounter procedureBenjamin Ball DO Work Phone: [facility] Work Phone: Start: 81-85-5841Ceqhigz encounter procedureBenjamin Ball DO Work Phone: [facility] Limatart: 56-85-0169Hyb- patient / Non-visitBenjamin Ball DO Work Phone: [facility] Work Phone: Start: 12-19-2023 End: 86-30-0355mylwtwhqyqDbvxpgvmdLouis [facility] Work Phone: Start: 12-19-2023 End: 80-54-3145Ljcedey encounter procedureCone Health [facility] GroupMartins [facility]erry [facility] Work Phone: Start: 12-13-2023 End: 33-38-2861Hkdbgf Jamari Miller DPM Work Phone: noms CI PODIATRYStart: 12-13-2023 End: 10-25-3146Wbwwnq flowsheetJonathanmathew Miller DPM Work Phone: n[facility] CI PODIATRYStart: 12-13-2023 End: 16-50-5178Cqcaggj encounter procedureAshutosh Miller DPM Work Phone: noms CI PODIATRYComment on above:Pain due to onychomycosis of toenails of both feet (Primary Dx)Start: 11-20-2023 End: 84-74-7122knaubhnyagTW Telx Work Phone: [facility] Work Phone: Start: 11-20-2023 End: 36-78-7488Wpkykea encounter procedureDO Blu Guía Local Work Phone: [facility] Work Phone: Start: 09-12-2023 End: 10-35-4315hghcjlcnkxMJ Telx Work Phone: [facility] Work Phone: Start: 09-12-2023 End: 18-91-0519Lthuwsz encounter procedureDO Blu Guía Local Work Phone: [facility] [place] [facility] Work Phone: Start: 09-12-2023 End: 21-67-0974Bzzugfa encounter procedureDO Blu Guía Local Work Phone: [facility] [place] [facility] Start: 09-12-2023 End: 25-81-4703lptzppmmyvVX Telx Work Phone: [facility] Work Phone: Start: 08-10-2023 End: 56-96-0623hjwevcdbkmXwpvlyflwMercy Health St. [facility] Work Phone: Start: 08-10-2023 End: 33-57-3755Uzvkuvg encounter procedureC[facility] Work Phone: Start: 26-93-5748Jyb-patient / Non-visitFirodilias [facility] Work Phone: Start: 05-10-2023 End: 90-49-1575unenjogbgfNxugjdvrxMercy Health St. [facility] Hospital Work Phone: Start: 05-10-2023 End: 57-85-1164Mborrtu encounter procedureFirelands [facility]ician [facility] Work Phone: Start: 04-19-2023 End: 91-39-9520zawefrosnmLgsylkeafMercy Health St. [facility] Hospital Work Phone: Start: 04-19-2023 End: 62-59-5250Zkdqccw encounter procedureFirelands [facility] Work Phone: Start: 04-11-2023 End: 75-94-2763khidjusfjqVzirkwwfrMercy Health St. [facility] Hospital Work Phone: Start: 04-11-2023 End: 39-28-0594Cmsylgm encounter procedureFirsouthern virginia regional medical center [facility] Work Phone: Start: 90-20-8660Njttvge encounter procedureWinnie Physician Group-Start: 02-08-2023 End: 86-81-4038Mkrpesy encounter procedureFirodilia [facility] Work Phone: Start: 01-30-2023 End: 81-64-4265sulvbjijcpUtwdukrt Ball Other [place] [employer] Other Start: 57-25-9542Covmozmiu encounterBenSt. Lawrence Rehabilitation Centertart: 12-21-2022 End: 17-91-3489Kmzyycmrje hospital visit by Taj Clemons Echo/Vasc Room 2[facility] HospitalComvon [facility] on above:Abnormal echocardiogram; Cerebrovascular accident (CVA), unspecified mechanism (CMS/HCC)Start: 11-16-2022 End: 08-15-8077nkgqdilvzdDtkrurxz Ponder Other [employer] Other Start: 36-43-1177Tplezqxme encounterBenmary GraciaG [facility] ClinicStart: 11-14-2022 End: 63-12-0735ujemzbzhyuCaftlfbe Ball Other noTC[employer] Online [employer] Other Start: 28-93-5253Dcuhjmz evaluation of patient and reportBenmary BallFPG Ball Medical ClinicStart: 17-44-7459Tdvrhu consultation new/estab patient 60 minBenjamin E Ball Work Phone: [phone]-Dzvtk [facility] [address] DO Work Phone: Start: 41-86-5335Omeqqth encounter procedureBenmermin E Ball Work Phone: [phone]-Fabpq [facility] [address] DO Work Phone: Start: 34-82-4115aoiddrwbxqThtsyy [facility] Facility:[id number]: 25-33-8708yambldumvmRyvnyp [facility] CenterFacility:[facility]PITALtart: 11-03-2022 End: 49-09-2525zczpdcnrjtYsyycmrn Ball Other [employer] Other Start: 29-23-3573Qzxxsmjly encounterBenjamin BallAUSTING Ball Medical ClinicStart: 10-20-2022 End: 89-41-4759tjjzpoqmshBivixabs Ball Other [employer] Other Start: 04-67-5706Lwmoxleho encounterBenmermin SamiaG [facility] ClinicStart: 09-05-2022 End: 24-89-6168viacgfytpyUzejcyhd Ball Other [employer] Other Start: 69-81-5457Twrlub outpatient visit 25 minutes Blu BallAUSTING Ball Medical ClinicStart: 08-30-2022 End: 85-02-9763qmwrlnlduaOcsxe M. LueFacility:EU BellevueStart: 08-30-2022 End: 82-12-5311Kqrvjti encounter procedureClarisa Ibarra [facility] Kalyn start: 02-21-2022 End: 00-14-4279qadrjgwjgdIVFrancine VELEZFacility:M3Zivhl: 49-29-9807Vkqci health examinationBearlen Velez Other [employer] Other Start: 62-46-9452Pztcmxlqp for general adult medical examination without abnormal findingsBearlen Velez Other [employer]Ep[employer] Other Start: 01-23-2022 End: 59-43-8856yqgdaaiolnPMFrancine VELEZFacility:W2Xrovw: 2022 End: 70-95-8716tcupbvwewxZdxky M. LueFacility:EU BellevueStart: 11-21-2021 End: 42-59-6309qszisucxarJL DONALD L SMITH JRFacility:Y6Zevld: 05-27-2021 End: 85-30-5942sjlvhtwiskNBOBAV H FAWWADFacility:B8Curpe: 04-26-2021 End: 91-29-3256hgqcqukotgHRLAGN H FAWWADFacility:R1Nicjx: 03-29-2021 End: 24-48-4308dvorixiiklXBZTWT H FAWWADFacility:X8Byber: 03-01-2021 End: 35-55-7383gqigwshxwwCXCQQI MOOREFacility:X5Fsejt: 10-29-2020 End: 69-15-3979Inbittxvi for other preprocedural examinationBearlen Velez Other noEpigami Other Start: 10-29-2020 End: 09-82-6616Qcz-procedure evaluation checkBenjamin Ball Other [facility] [employer] Other Start: 08-21-2020 End: 45-02-0052Admhoizuzv and management of inpatientSTANLEY Albert MIRAMONTESLOCordellaldo [facility]ulla HospitalStart: 08-21-2020 End: 96-00-5374Qnlptpqoub and management of inpatientVirmelida Adame MD Work Phone: staz Med SurgComment on above:Hemarthrosis of right knee (Primary Dx); S/P total knee arthroplasty, rightStart: 08-09-2020 End: 71-42-2038ruldzykxycFHITEBrooklynn Villagomez [facility] HospitalStart: 08-09-2020 End: 97-48-6722Xvtdcmmkvi hospital visit by Nilo Ferraro MD Work Phone: staz Med SurgStart: 07-15-2020 End: 23-29-0489putjkuhoczWOAHZGQC E BALLPremier Health [facility] HospitalStart: 07-15-2020 End: 31-40-0334Gltqixjhhy hospital visit by physicianSjohn Cortes [facility] HospitalAZ PRE-ADMIT TESTINGStart: 08-13-2017 End: 01-64-1830OijxxneiadBLJBKEGrand Lake Joint Township District Memorial Hospitalveland Procedures DateProcedureProcedure DetailPerforming ClinicianStart: 88-42-2264PLYN SURGERY Chey Holm MD Work Phone: Start: 69-47-1863OQII / NAIL BIOPSYNatalie A Felter INDUSTRIAL TRAINER-ENVIRONMENTAL SAFETY SPECIALIST Work Phone: Start: 16-94-3167Wmugflgc Ball DO Work Phone: Start: 05-55-3575RF LHC & COR AngioBenjamin Ball DO Work Phone: Start: 13-83-4523Ry heart no contrast quant eval coronry Telly Johnson MD Work Phone: Start: 91-82-3056Y-ray of left kneeDO Bul Ball Work Phone: Start: 60-10-9313Lpko transthorc r-t 2d w/wo m-mode rec f-up/lmtMarkus Johnson MD Work Phone: Start: 71-52-9883PPQ screeningSHEBONIE FAWWADComment on above:Performed By: #### PSAD #### [facility] [address] [place] [address] Dr. Tisha JohnStart: 00-12-2834CLASF METABOLIC PANEL W/ REFLEX TO MG FOR LOW K Rachel [facility] INDUSTRIAL TRAINER - ENVIRONMENTAL SAFETY SPECIALIST Work Phone: Start: 92-37-0061Pibdm count complete automatedShSaint Joseph's Hospital INDUSTRIAL TRAINER - ENVIRONMENTAL SAFETY SPECIALIST Work Phone: Start: 39-90-7334Wwcrf count complete auto&auto difrntl wbcStanshyann Price Orcandicep DO Work Phone: Start: 64-18-1256Aoagusxqple timeElisa Ferraro MD Work Phone: Start: 10-63-8276Gzzqshxsiq examination knee 1/2 views Elisa Ferraro MD Work Phone: Start: 08-09-2020 End: 67-09-5768Eckcmj kne condyle&platu medial&lat compartmentsElisa Ferraro MD Work Phone: Start: 11-04-6945Zzajm count platelet automatedElisa Ferraro MD Work Phone: Start: 91-81-4707Rfknrxzp screenSta 1Start: 07-15-2020 Iadna s aureus methicillin resist amp probe tqGlwendy Ferraro MD Work Phone: Start: 17-52-7945Eapwp dip stick/tablet rgnt auto w/o microscopyElisa Ferraro MD Work Phone: Start: 72-16-0748Zlm routine ecg w/least 12 lds i&r onlyGlwendy Ferraro MD Work Phone: start: 88-02-1403Yqpna typing serologic Nghia Pedro MD Work Phone: Start: 58-10-2260Xkqraijqzamru metabolic panelGlwenyd Ferraro MD Work Phone: Start: 47-96-3960EpyrvofvnpYnnbb Lue Start: 56-14-9277Kckhebjsbjne cardiovascular examinationBenjamin Ball Other Start: 59-17-8660Bwggkaifn for malignant neoplasm of colonBenjamin Ball Other Start: 58-58-5679Saqgoypqg for malignant neoplasm of prostateBenjamin Ball Other Arthroplasty of kneeKathy Lue Arthroplasty of kneeBenjamin E Ball Work Phone: Arthroscopy of kneeKathy Lue Cataract surgeryBenjamin E Ball Work Phone: ColonoscopyKathy Lue Depression screeningBenjamin Ball Other EsophagogastroduodenoscopyKathy Lue H/O: artificial jointBenjamin Ball Other Hernia repairKathy Lue Hernia repairBenjamin E Ball Work Phone: History of operative procedure on kneeHistory of left knee replacementDO Blu Ball Work Phone: Operative procedure on kneeBenjamin E Ball Work Phone: Procedure on backBenjamin E Ball Work Phone: Repair of musculotendinous cuff of shoulderKathy Lue Repair of shoulderBenjamin E Ball Work Phone: Screening for malignant neoplasm of prostateBlu Velez Other Total colonoscopyBearlen Velez Work Phone: Comment on above:2020; Plan of Treatment DateCare ActivityDetailAuthorStart: 03-03-2025 End: 69-38-5227Fkatjnm encounter qjltkhvle23/06/2026 10:10 AM EST Office Visit [facility] [address] [facility] [address] [place] [phone] Teo Johnson MD [address] [facility] [address] [place] [address] [place] [address] [facility]istonStart: 02-12-2025 End: 91-71-8399Pieyydh encounter procedureNOMS SWS DERMStart: 12-18-2024 End: 70-86-5093Pxojnln encounter procedureNOMS CI PODIATRYComment on above:Pain due to onychomycosis of toenails of both feet (Primary Dx); Xerosis cutisStart: 11-27-2024 End: 65-04-8175Bxgmgnc encounter procedureNOMS [place] DermatologyComment on above:ArrivedStart: 10-28-2024 End: 94-28-1090Nhbtwfn encounter procedureNOMS [place] DermatologyComment on above:ArrivedStart: 86-36-7626Dmidnbkmq vaccinationInfluenza Vaccine (#1)[facility] HealthcareStart: 09-25-2024 End: 82-42-1633Peeoece encounter procedureNOMS CI PODIATRYComment on above:Pain due to onychomycosis of toenails of both feet (Primary Dx); Xerosis cutisStart: 08-18-2024 End: 26-51-1112Qbypnbk encounter jsjsyfrpf96/23/2025 3:20 PM EDT Office Visit [facility] [address] [place] [address] [place] [id number] Leah Sanford, INDUSTRIAL TRAINER-ENVIRONMENTAL SAFETY SPECIALIST [address] [place] [address] [place] [address] ArrivedNOMS SWS DERMComment on above: ArrivedStart: 07-17-2024 End: 15-68-4115Nmztoqr encounter eggpkpvyf55/22/2025 10:30 AM EDT Procedure Visit [facility] [address] [place] [address] Ashutosh Miller DPM [address] [facility] 5 [place] [address] [facility] CI PODIATRYStart: 07-02-2024 End: 49-52-0391Xnojefd aminotransferase [Enzymatic activity/volume] in Serum or Plasma by With P-5'-PAlanine Aminotransferase Lab Routine Coronary artery disease involving match-e-be-nash-she-wish band coronary artery of match-e-be-nash-she-wish band heart without angina pectoris Hyperlipidemia, unspecified hyperlipidemia type Expected: 07/02/2024 (Approximate), Expires: 07/02/2025[facility] Area Work Phone: Comment on above:Expected: 07/02/2024 (Approximate), Expires: 07/02/2025Start: 07-02-2024 End: 94-78-5326Smklvjmhn aminotransferase [Enzymatic activity/volume] in Serum or Plasma by With P-5'-PAspartate Aminotransferase Lab Routine Coronary artery disease involving match-e-be-nash-she-wish band coronary artery of match-e-be-nash-she-wish band heart without angina pectoris Hyperlipidemia, unspecified hyperlipidemia type Expected: 07/02/2024 (Approximate), Expires: 07/02/2025[facility] Work Phone: Comment on above:Expected: 07/02/2024 (Approximate), Expires: 07/02/2025Start: 07-02-2024 End: 65-15-0424Lrixo 1996 panel - Serum or PlasmaLipid Panel Lab Routine Coronary artery disease involving match-e-be-nash-she-wish band coronary artery of match-e-be-nash-she-wish band heart without angina pectoris Hyperlipidemia, unspecified hyperlipidemia type Expected: 07/02/2024 (Approximate), Expires: 07/02/2025[facility] Work Phone: Comment on above:Expected: 07/02/2024 (Approximate), Expires: 07/02/2025Start: 35-69-3393YDQCD-19 Vaccine (4 - Pfizer risk season)COVID-19 Vaccine (4 - Pfizer risk season)[facility] HospitalStart: 17-23-6103HtksbwfraSCCI Hospital Limatart: 05-01-2024 End: 57-97-6077Jdhqmol encounter procedureNOMS CI PODIATRYComment on above:Pain due to onychomycosis of toenails of both feet (Primary Dx); Xerosis cutisStart: 04-29-2024 End: 95-04-5528Xgypwen encounter /04/2025 7:30 PM EST Appointment [facility] [address] [place] [phone] [facility] 04-08-2024 End: 52-48-8706Mylrnpp encounter /11/2025 10:30 AM EST Appointment [facility] [address] [facility] [address] [place] [address] [facility] HospitalStart: 03-26-2024 End: 95-07-2381Gfcaach stress study ProcedureStress Test Cardiac Services Routine Shortness of breath Expected: 03/26/2024 (Approximate), Expires: 03/26/2025[facility] Service Area Work Phone: Comment on above:Expected: 03/26/2024 (Approximate), Expires: 03/26/2025Start: 03-26-2024 End: 81-61-1788YB for calcium scoring WO contrast and CTA W contrast IV Heart and coronary arteriesCT cardiac scoring wo IV contrast Imaging Routine Shortness of breath Expected: 03/26/2024, Expires: 03/26/2025[facility] Work Phone: Comment on above:Expected: 03/26/2024, Expires: 03/26/2025Start: 02-21-2024 End: 98-44-8715Vlislte encounter procedureNOMS CI PODIATRYComment on above:Pain due to onychomycosis of toenails of both feet (Primary Dx); Xerosis cutisStart: 12-13-2023 End: 21-01-4364Ieoaqap encounter bqowyvxeu27/17/2024 11:30 AM EDT Procedure Visit [facility] [address] [facility] [address] [place] [address] Ashutosh Miller DPM [address] [facility] [address] [place] [address] Pain due to onychomycosis of toenails of both feet (Primary Dx)NOMS CI PODIATRYComment on above:Pain due to onychomycosis of toenails of both feet (Primary Dx)Start: 70-00-3249Ntaxzapbf vaccination Influenza Vaccine (#1)[facility] HealthcareStart: 14-98-3800Nwbayh X-rayXR pelvis 1-2V [facility]art: 43-64-3306E-ray of left kneeXR knee LT 3V - NOT FOR ER USESCCI Hospital Limatart: 26-41-4276LE Knee - left 3 ViewsSCCI Hospital Limatart: 99-66-6199FC Pelvis 1 or 2 ViewsSCCI Hospital Limatart: 50-10-2325ERVKA-19 Vaccine (4 - Pfizer series)COVID-19 Vaccine (4 - Pfizer series)[facility]: 00-32-6343DDYX, Provider: [place] VEGASI ULTRASOUND ,[id number], Status: Pen, Time: 10:45 AMECHO, Provider: [place] HHVI ULTRASOUND ,[id number], Status: Pen, Time: 10:45 AMC[facility] [address] DO Work Phone: Start: 78-49-9366Eoxvowszd vaccinationInfluenza Vaccine (#1)[facility]: 40-88-3516Ckgjmaxeul measurementCreatinine monitoringMercy Health Work Phone: start: 45-72-1700Uioswkmoy monitoringPotassium monitoringMercy Health Work Phone: start: 30-26-0693Efkpejfyao measurementCreatinine monitoringMercy Health Work Phone: start: 82-60-6144Aksajblnw monitoringPotassium monitoringKettering Health Springfield [employer] Work Phone: start: 71-43-9558Ufrjpmvjp vaccinationFlu vaccine (Season Ended)[facility] HospitalCreat[facility] Phone: start: 08-09-2020 End: 33-11-6754Bebngohgi to same day surgery fksphg2508/09/2020 Surgery IP Unit Elisa Ferraro MD [address] [facility] [place] [address] [phone] RIGHT KNEE TOTAL ARTHROPLASTY- DEPUY STAZ ORComment on above:RIGHT KNEE TOTAL ARTHROPLASTY- DEPUYStart: 08-09-2020 End: 90-47-3810Qardcajknq jvijllmcpmnu35/14/2021 Anesthesia Event IP Unit Tatyana Henriquez MD [address] [place] [address] [phone] STAZ ORStart: 20-23-7594Uwjgcxxhfy hospital visit by sitzkdfhs06/14/2021 Hospital Encounter IP Unit Elisa Ferraro MD [address] [facility]/ [place] [address] [phone] STAAlyce ORStart: 42-21-9648Xmrzip Wellness Visit (AWV)Annual Wellness Visit (AWV)[employer] Phone: start: 24-11-3132ZVU High Risk: (Elderly (60+) or Population) (1 - 1-dose 75+ series)RSV High Risk: (Elderly (60+) or Population) (1 - 1-dose 75+ series)[facility] Start: 21-85-0971Yvchainwmvnw vaccinationPneumococcal Vaccine (2 of 2 - PCV) [facility] HospitalStart: 01-78-2502Gcsuuqfdsarh Vaccine: 65+ Years (2 - PCV)Pneumococcal Vaccine: 65+ Years (2 - PCV)[facility]: 43-84-2140Wvklmmpjlgfy Vaccine: 65+ Years (2 of 2 - PCV) Pneumococcal Vaccine: 65+ Years (2 of 2 - PCV)[facility]: 2010 Pneumococcal 65+ years Vaccine (1 of 1 - PPSV23)Pneumococcal 65+ years Vaccine (1 of 1 - PPSV23)[employer] Phone: start: 92-97-7961Kdsczkvit for malignant neoplasm of colonColon cancer screen colonoscopyKettering Health Springfield [employer] Work Phone: start: 21-89-4928Tnfrxxzw Vaccine (1 of 2)Shingles Vaccine (1 of 2)[employer] Work Phone: start: 66-53-0376Bxlxpf Vaccines (1 of 2)Zoster Vaccines (1 of 2)[facility]: 91-19-3336ACqX/Tdap/Td Vaccines (1 - Tdap)DTaP/Tdap/Td Vaccines (1 - Tdap)[facility]: 93-89-7169NIiC/Tdap/Td vaccine (1 - Tdap)DTaP/Tdap/Td vaccine (1 - Tdap)[employer] Phone: start: 77-68-2421Cumibglx mellitus screeningDiabetes ScreeningUnGalion Community HospitalStart: 62-57-0755Pyoaifszs C screening Hepatitis C ScreeningWexner Medical Center: 02-80-3615Utmvh panelLipid screenKettering Health Springfield [employer] Work Phone: start: 47-76-9414Rqslrnhny aortic aneurysm screening AAA screenKettering Health Springfield [employer] Work Phone: start: 03-36-6756Iabjbalie C screeningHepatitis C screenKettering Health Springfield [employer] Work Phone: start: 36-26-5208Fxkqp panelLipid PanelUnGalion Community HospitalStcheyenne: 1945Medicare Annual Wellness VisitMedicare Annual Wellness Visit (AWV)[facility] End: 34-71-0981Lxzemif stress study ProcedurePEAK BEHAVIORAL [facility]ALTH SERVICES Service Area Work Phone: Comment on above:Once for 1 Occurrences starting 04/08/2024 until 04/08/2024Dermatopathology examDermatopathology exam Pathology and Cytology Timed Neoplasm of unspecified behavior of bone, soft tissue, and skin Release Upon Ordering for 1 Occurrences starting 08/18/2024[facility] Work Phone: comment on above:Release Upon Ordering for 1 Occurrences starting 08/18/2024Fibrin D-dimer [Presence] in Platelet poor plasma by Latex agglutinationOhiohealth Grove City Methodist HospitalOxygen therapy [Minimum Data Set][facility] [employer] Work Phone: comijsu on above:Daily until discontinued starting 08/09/2020aily until discontinued starting 08/21/2020atient EducationKnow your [facility] Work Phone: Patient referralUniversity Hospitals [facility] Work Phone: [phone]-IRQVSVVAGW-INR Lab Routine Daily until discontinued starting 08/10/2020, 1 completedOhio State Harding HospitalTutor Assignment Work Phone: comotdb on above:Daily until discontinued starting 08/10/2020, 1 completedSpirometry panelIncentive spirometry Respiratory Care Routine Every 2hr while awake until discontinued starting 08/09/2020[facility] HospitalTutor Assignment Work Phone: combcya on above:Every 2hr while awake until discontinued starting 08/09/2020 End: 57-82-2054EQ Heart TransthoracicPEAK BEHAVIORAL HEALTH SERVICES Service Area Work Phone: Comment on above:Once for 1 Occurrences starting 12/21/2022 until 12/21/2022 End: 60-80-2011Udyhc CultureWound Culture Microbiology Routine One Time for 1 Occurrences starting 08/21/2020 until 08/21/2020[facility] HospitalTutor Assignment Work Phone: comntdq on above:One Time for 1 Occurrences starting 08/21/2020 until 08/21/2020 End: 62-03-7596Xnrsl Gram stainWound Gram stain Microbiology Routine One Time for 1 Occurrences starting 08/21/2020 until 08/21/2020[facility] Work Phone: comment on above:One Time for 1 Occurrences starting 08/21/2020 until 08/21/2020XR Chest 2 [facility] Immunizations Immunization DateImmunizationNotesCare SpydlhcfFkvzfwal93-64-4790yqlyagrep, high dose seasonal, preservative-freeBenjamin Ball DO Work Phone: [facility]10-14-2025influenza virus vaccine, unspecified formulationAshutosh Brown DPM Work Phone: [facility]–SmithvilleQqljuoavtl93-73-0203zecasuqwp, seasonal, injectableTeo Johnson MD Work Phone: [facility]11-01-2024SARS-CoV-2, UnspecifiedTeo Johnson MD Work Phone: [facility] Work Phone: [phone] virus vaccine, unspecified formulationAshutosh [place] DPM Work Phone: [facility]–SmithvilleUefkyqhqlr61-08-5296coaaimzff, high dose seasonal, preservative-freeOhiohealth Grove City Methodist Hospital10-14-2024COVID-19 (PFIZER) [phone] 12Y and olderBenjamin Ball DO Work Phone: [facility]10-04-2023Pfizer COVID-19 vaccine, 12 years and older, (30mcg/0.3mL) (Comirnaty)Teo Johnson MD Work Phone: [facility] Work Phone: [phone]q virus vaccine, unspecified formulationAshutosh Brown DPM Work Phone: [facility]SmithvilleGqlbrbgulw17-68-4152pxblgvzov virus vaccine, unspecified formulationOhio[facility]09-19-2023influenza, high dose seasonal, preservative-freeBlu Velez Other [employer] Other [id number] virus vaccine, split virus (incl. purified surface antigen)Blu Velez Other [employer] Other 10615638-03-9117vxofzczlx virus vaccine, unspecified formulationOhio[facility]10-01-2022influenza virus vaccine, unspecified formulationEly [address] [place] [address] Work Phone: [phone]-CiM-0 (COVID-19) mRNAMUL.ORD!i43543 Clarisa Ibarra [facility]10-01-2021influenza virus vaccine, unspecified formulationTeo Johnson MD Work Phone: [facility] Work Phone: [phone]-UbE-4 (COVID-19) mRNA BNT-162b2 vax Clarisa Ibarra [facility] on above:Result Comment: 2022: [id number] virus vaccine, split virus (incl. purified surface antigen)Blu Velez Other [employer] Other 09-246157-87-7618kgbkpfjkn virus vaccine, unspecified formulationOhio[facility]02-21-2021COVID-19, Pfizer, PF, 30mcg/0.3mLSta 1[facility] on above:Result Comment: 2022: [id number]-09, Pfizer, PF, 30mcg/0.3mLSta 1[facility] on above:Result Comment: 2022: AUS7046-79-8250odhucqwxn virus vaccine, unspecified formulationTeo Johnson MD Work Phone: [facility] Work Phone: [phone]tzsva virus vaccine, split virus (incl. purified surface antigen)lBu Velez Other [facility] [employer] Other 09-121298-31-7486nrfoumfen virus vaccine, unspecified formulationOhiohealth [facility] Hospital10-14-2019influenza virus vaccine, split virus (incl. purified surface antigen)Blu Velez Other [facility] [employer] Other 10-479324-86-7936hauosajfz virus vaccine, unspecified formulationOhio[facility]09-18-2018influenza virus vaccine, split virus (incl. purified surface antigen)Blu Velez Other [place] [employer] Other 09-840863-04-7984nnstenzhf virus vaccine, unspecified formulationKathy Lue [facility]09-18-2018Seasonal trivalent influenza vaccine, adjuvanted, preservative freeBenmary Velez Work Phone: [phone] [address] [place] Work Phone: [phone]ye virus vaccine, unspecified formulationKathy Lue [facility]11-20-2017influenza, injectable, quadrivalent, contains preservative Blu Velez Work Phone: [phone]-Ppwrp[facility] 250 DO Work Phone: [phone]laccka virus vaccine, split virus (incl. purified surface antigen)Blu Velez Other [facility] [employer] Other 10-18936457-65-3794avtnnfufs virus vaccine, unspecified formulationOhiohealth [facility]05-15-2017pneumococcal polysaccharide vaccine, 23 valNell Ibarra [facility]11-25-2015pneumococcal conjugate vaccine, 13 [place] Velez Other [facility]11-25-2015 pneumococcal Conjugate, unspecified formulation; Translations: [Need for prophylactic vaccination against Streptococcus pneumoniae (pneumococcus)] Blu Velez Other [employer] Other 10-045984-88-9116rogaafcvs virus vaccine, split virus (incl. purified surface antigen)Blu Velez Other [employer] Other 10-825260-06-6461wghuydwbj virus vaccine, unspecified formulationOhiohealth [facility] Payers DatePayer CategoryPayerPolicy [id number]-wcy [id number] Health InsuranceAARP [id number] 2023Medicare supplemental policy (as second payer)AARP Member Subscriber Plan / Payer (Effective 2022-Present) Name: Yanelis Noriega Relation to Subscriber: Self Name: Yanelis Noriega Payer ID:Not on file Group ID: [id number] Type: Not on file Address: [address] [place] [id number] [id number] 2010Medicare [id number] [id number] 1.2.840.032931.1.13.239.2.7.3.682847.49341-58-5168Ihilcrj Health Insurance [id number] 1.2.840.317872.1.13.239.2.7.3.368[id number] 2.840.1.392012.3.57[id number] 2.16.840.1.799963.3.57[id number] 2.16.840.1.455639.3.57[id number] 2.16.840.1.177598.3.57[id number] 2.16840.1.280450.3.57[id number] 2.16.840.1.805745.3.57[id number] 2.16.840.1.194625.3.579.[id number] 2.16.840.1.086485.3.57[id number] 2.16.840.1.079875.3.579.2.54326-02-3410Gzlhijc2641562 2..840.1.657235.3.579.2.[id number] 2..840.1.150654.3.579.2.11018-09-1190Egyadei63181326 2.840.1.253892.3.579.2.684[id number] 2.840.1.085914.3.579.2.355[id number] 2.840.1.846661.3.579.[id number] 2.840.1.649608.3.579.2.90[id number] 2.840.1.897560.3.57[id number] 2.840.1.856307.3.579.2.[id number] 2.840.1.088266.3.579.2.377552-15-3456Tlivjkz89868594 2.840.1.903381.3.57[id number] 2.840.1.404055.3.579.2.027714-28-0068Txbamii25542328 2.840.1.798989.3.579.2.786831-60-3907Slzzosc61942540 2..840.1.524605.3.579.2.022096-84-1042Pecvysi36606869 2.840.1.695811.3.579.2.276337-83-1773Dsfowjj3243428 2..0.1.417993.3.579.2.969706-67-3820Nlrtbrk4578429 2..840.1.687416.3.579.2.352964-12-0452Vlebipo9530810 2..840.1.812713.3.579.2.3984Ivuyvgp52017845 2.16.840.1.877350.3.579.2.531 [id number] 2..840.1.486772.3.579.2.480Ooveeuz80895081 2.16.840.1.491427.3.579.2.531 Social History DateTypeDetailFacilityStart: 07-15-2020 End: 79-58-6422Plxfmym smoking status NHISFormer smokerExec[facility] of [facility] End: 89-33-2651Qqdlecd of tobacco useCurrent smokerOhio State Harding HospitalTutor AssignmentStart: 07-15-2020 End: 61-85-2860Gtbkogf use and exposureNever usedOhio State Harding HospitalTutor AssignmentStart: 07-15-2020 End: 75-58-1834Qdrtilm intakeCurrent drinker of alcohol (finding)[employer] Phone: start: 07-15-2020 End: 08-85-6053Aaqelsd intakeOhio State Harding HospitalK121 Phone: comment on above:5-6 beers daily;2-3 servings a day; quit 1964;Start: 88-39-8763Hku Assigned At BirthNot on [facility]K121 Phone: start: 12-11-2022 End: 95-53-5391Ripsgdff to SARS-CoV-2 (event)Not sureOhio State Harding HospitalUpper Krust Pizza HealthStart: 04-49-0148Jrragzl smoking statusNeverExecutive Urology of [facility] Medical Centertart: 03-01-2023 End: 85-75-6044Nzv Assigned At [facility] BeachwoodTobacc smoking status NHISTobacco smoking consumption unknownUnGalion Community Hospital Work Phone: Start: 02-08-2023 End: 61-17-4912Mxjvajf smoking status NHISNever smoked tobacco (finding) [facility] Limatart: 35-90-4000Rfo Assigned At [facility] End: 19-67-1633Uhbtxce of tobacco useCigarette SmokerNOMS HealthcareHow often to you have a drink containing alcohol?4 or more times a weekNOMS HealthcareHow many standard drinks containing alcohol do you have on a typical day?3 or 4NOMS HealthcareHow often do you have 6 or more drinks on 1 occasion?NeverNOMS HealthcareStart: 19-20-2350Juweucn Commentcaffeine intake: more than 4 cups per dayNOSC HealthcareStart: 05-02-2024 End: 40-87-5435JwiNzkv (finding)[facility] Limatart: 81-18-2372Rthaauk Comment3-4 beers dailyEast [facility] Work Phone: Medical Equipment Procedure CodeEquipment CodeEquipment Original TextEquipment IdentifierDates Upcharge Knee Primary Attune Aox Insert Depuy [id number]_ywyVlnwz: 08-09-2020 Cement Bne 40gm Full Dose Pmma W/O Antibio Hi Visc N Twgtd323983_tknHtmct: 38-05-3494Tatsaoxzf Pat Pme26tc Knee Poly Anuel Medialized Nayla Mjsayb827799_ews Start: 70-02-4774Xzzrvtaii Tib Sz 7 Fix Bear Anuel Vjfocr927413_mahXcjhn: 70-97-0179Fbjjmvgqu Fem Sz 7 R Knee Post Stbl Anuel Hsdkhe991939_tnqGntzg: 36-92-8568Svcbjc Tib Sz 7 Thk7mm Knee Post Stbl Fix Bear Judttj114882_rlwRkqaz: 08-09-2020 Goals DatePatient GoalDesired Activity/State Functional Status QqkwNvgicrouwxIaevwgAropbdoz76-58-9370Nbbffyrdcr StatusN/AExec[facility] Clinical Notes 07-15-2020 to 12-18-2024 Note Date & QdazBpecBxdqptjx56-61-8439 History of Present illness Narrative* Ashutosh Marianna Miller, DPM - 12/18/2024 11:30 AM EDT Patient: Yanelis Noriega : 1945 PCP: Blu Velez, DO SUBJECTIVE This is a 79 y.o. male that presents today with a CC of elongated, thick nails. Pt states nails have been elongated and thick for many years and cause pain with ambulation in shoegear. Pt has tried previous treatment with minimal relief. Pt presents today for nail care and treatment. 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 Allergies: Allergies Allergen Reactions Iodinated Contrast Media Hives and Itching Iodine Unknown Sulfa Antibiotics Hives and Unknown Past Medical History: Past Medical History: Diagnosis Date Acute deep vein thrombosis of distal leg, left (HCC) 2010 Basal cell carcinoma 10/28/2024 Right mid helix, Mohs by Dr. Holm BPH (benign prostatic hyperplasia) Colon polyp ETD (Eustachian tube dysfunction), left GERD (gastroesophageal reflux disease) HLD (hyperlipidemia) HTN (hypertension) Hx-TIA (transient ischemic attack) Lumbar spondylosis Sensorineural [...] mouth in the morning., Disp: , Rfl: benazepril (Lotensin) 20 MG tablet, Take 20 mg by mouth in the evening, Disp: , Rfl: hydroCHLOROthiazide (HYDRODiuril) 12.5 MG tablet, Take 1 tablet by mouth in the morning., Disp: , Rfl: rosuvastatin (Crestor) 20 MG tablet, Take 20 mg by mouth, Disp: , Rfl: Social History: Social History [...] condition. Ashutosh Miller DPM documented in this encounterSaint Luke's [facility] Hospital–SmithvilleScprghusya37-55-4882 History of Present illness Narrative* Chey Holm MD - 11/27/2024 11:15 AM EDT Images from the original note were not included. Wound Check Location: Right mid helix Procedure performed: Mohs Micrographic Surgery Diagnosis: Basal Cell Carcinoma Date of procedure: 10/28/2024 Signs/Symptoms: denies pain, denies drainage All pertinent medical history, medications, and allergies were reviewed. General Exam: alert, oriented to person, place, and time, normal affect, well appearing Unaccompanied Skin Exam 1. ENCOUNTER FOR POSTOPERATIVE WOUND CHECK Right [place] Post procedural wound with appropriate granulation at site Wound check/care today. See note: Wound Care Location: Right mid helix Wound Care: Cleansed the site with Vashe wound wash and covered with a sterile bandage Wound Debridement: None Instructions: Instructed to continue daily wound care for 1 more week Next Visit: 02/12/2025 documented in this encounterSaint Luke's North Hospital–SmithvilleExumbpbdfo63-17-3097 History of Present illness Narrative* Chey Holm MD - 10/28/2024 8:30 AM EDT Images from the original note were not included. Mohs Surgery Location: Right mid helix Date of biopsy: 08/18/2024 Diagnosis: Basal Cell Carcinoma All pertinent medical history, medications, and allergies were reviewed. General Exam: alert, oriented to person, place, and time, normal affect, well appearing Accompanied by spouse (inwaiting room) A focused exam completed based on patient reported problems, see below: Skin Exam 1. BASAL CELL CARCINOMA (BCC) OF HELIX OF RIGHT EAR Right [place] Erythematous macule at the biopsy site, 1.0 x 0.8 cm Mohs surgery Consent obtained: written [place] Protocol: Procedure explained and questions answered to patient or proxy's satisfaction: Yes Test results available and properly labeled: Yes Pathology report reviewed: Yes External notes reviewed: Yes Photo or diagram used for site identification: Yes Site/side marked: Yes Slide independently reviewed by Mohs surgeon: Yes Anticoagulation: Is the patient taking prescription anticoagulant and/or aspirin prescribed/recommended by a physician? Yes (Eliquis) Was the anticoagulation regimen changed prior to Mohs? No Anesthesia: Anesthesia method: local infiltration Local anesthetic: lidocaine 1% WITH epi and sodium bicarbonate Procedure Details: Timeout: pre-procedure verification complete Procedure Prep: patient was prepped and draped in usual sterile fashion Prep type: chlorhexidine Biopsy accession number: [id number] Biopsy lab: [facility] Date of biopsy: 08/18/2024 Frozen section biopsy performed: Yes Specimen debulked: No Pre-Op diagnosis: basal cell carcinoma BCC subtype: nodular MohsAIQ Surgical site (if tumor spans multiple areas, please select predominant area): ear Surgery side: right Surgical site (from skin exam): Right [place] Pre-operative length (cm): 1 Pre-operative width (cm): 0.8 Indications for Mohs surgery: anatomic location where tissue conservation is critical and ill-defined borders Mohs Appropriate Use Criteria Score: 9 Details of micrographic surgery: Mohs accession number: [id number] Micrographic Surgery Details: Post-operative length (cm): 1.5 Post-operative width (cm): 1.2 Number of Mohs stages: 4 Post surgery depth of defect comment: To cartilage Stage 1 Comments: The area was prepped with Hibiclens, draped in a sterile fashion, and infiltrated with local anesthetic. Sterile technique was used throughout the procedure. The marked area of clinical tumor with a small rim of clinically normal surrounding skin was removed using Mohs technique with beveled edges. Hash fletcher were placed for orientation of the specimen. Hemostasis was achieved with electrodessication. After hemostasis, the defect was measured and recorded, a temporary sterile dressingwas placed over the wound, and the patient was escorted to the waiting area. The specimen was oriented, mapped, and if necessary, divided into sections. A Mohs map was prepared. The specimen was placed in a labeled morelia dish and was taken to the Mohs lab where it was chromacoded and processed. Mohs sections were prepared with serial tissue sections, stained, and evaluated by Dr. Holm for interpretation of deep and peripheral margins. The Mohs map was marked accordingly. Amount of lidocaine used: 1.0 cc Estimated blood loss: minimal Defect size: 1.1 x 1.0 cm Number of blocks per stage: 1 Number of positive blocks: 1 Tumor features identified on Mohs section: basal carcinoma Tumor features identified on Mohs section comment: nodular pattern Depth of tumor invasion after stage: dermis Stage 2 Comments: The patient returned to the procedure room, the dressing was removed, the tumor area was re-prepped and draped, and anesthesia was assessed and augmented as necessary. A layer of tissue around the positive margin(s) was removed, and the tissue was oriented, mapped, and processed in an identical fashion as for Stage 1. Hemostasis was achieved and dressing placed as in Stage 1. The patient was escorted to the waiting area. As with Stage 1, Mohs sections were prepared with serial tissue sections, stained, and evaluated by Dr. Holm for interpretation of deep and peripheral margins. The Mohs map was updated. Assistants: Fabiano Tomas LPN Amount of lidocaine used: 0.8 cc Estimated blood loss: minimal Defect size: 1.4 x 1.0 cm Number of blocks: 1 Number of positive blocks: 1 Tumor features identified on Mohs section: basal carcinoma Tumor features identified on Mohs section comment: nodular pattern Depth of tumor invasion after stage comment: to cartilage Stage 3 Comments: The patient returned to the procedure room, the dressing was removed, the tumor area was re-prepped and draped, and anesthesia was assessed and augmented as necessary. A layer of tissue around the positive margin(s) was removed, and the tissue was oriented, mapped, and processed in an identical fashion as for Stage 1. Hemostasis was achieved and dressing placed as in Stage 1. The patient was escorted to the waiting area. As with Stage 1, Mohs sections were prepared with serial tissue sections, stained, and evaluated by Dr. oHlm for interpretation of deep and peripheral margins. The Mohs map was updated. Assistants: Fabiano Tomas LPN Amount of lidocaine used: 1.2 cc Estimated blood loss: <1.0 cc Defect size: 1.5 x 1.1 cm Number of blocks: 1 Number of positive blocks: 1 Tumor features identified on Mohs section: basal carcinoma Tumor features identified on Mohs section comment: nodular pattern Depth of tumor invasion after stage comment: to cartilage Stage 4 Comments: The patient returned to the procedure room, the dressing was removed, the tumor area was re-prepped and draped, and anesthesia was assessed and augmented as necessary. A layer of tissue around the positive margin(s) was removed, and the tissue was oriented, mapped, and processed in an identical fashion as for Stage 1. Hemostasis was achieved and dressing placed as in Stage 1. The patient was escorted to the waiting area. As with Stage 1, Mohs sections were prepared with serial tissue sections, stained, and evaluated by Dr. Holm for interpretation of deep and peripheral margins. The Mohs map was updated. Assistants: Fabiano Tomas LPN Amount of lidocaine used: 1.0 cc Estimated blood loss: <1.0 cc Defect size: 1.5 x 1.2 cm Number of blocks: 1 Number of positive blocks: 0. Tumor free margins were obtained and the Mohs procedure was considered complete. Tumor features identified on Mohs section: no tumor identified Depth of tumor invasion after stage comment: to cartilage Patient tolerance of procedure: tolerated well, no immediate complications Reconstruction: Was the defect reconstructed?: No Antibiotics: Were antibiotics given on the day of surgery?: No Mohs Post Operative Type of repair: Patient presented with the options of healing by secondary intention vs. Repair with transposition flap vs. FTSG. Reviewed benefits, risks, and possible outcomes of both options. Patient informed that the area may be repaired at a later date if the outcome after healing by secondaryintention if not acceptable. Patient chose secondary intention. Wound Care: A pressure dressing was placed on the surgical wound. Post-operative instructions were given in writing and were reviewed with the patient. A follow- up appointment was made, and instructions were given to follow-up sooner if necessary. Related Medications mupirocin (Bactroban) 2 % ointment Apply to right ear once a day until healed/30 days Next visit: 1 month/wound check documented in this encounterSaint Luke's North Hospital–SmithvilleWuzcdiqffi96-31-1492 History of Present illness Narrative* Leah Sanford, INDUSTRIAL TRAINER-ENVIRONMENTAL SAFETY SPECIALIST - 08/18/2024 3:20 PM EDT Images from the original note were not included. Lesions: Location: right ear Duration: months Quality: bleeding Modifying factors: aggravated by laying on right side Associated symptoms: non-healing, tender Treatments: none New patient, referred by Blu Velez, DO All pertinent medical history, medications, and allergies were reviewed. General Exam: alert, oriented to person, place, and time, normal affect, well appearing Accompanied by significant other A focused exam completed based on patient reported problems, see below: Skin Exam 1. NEOPLASM OF UNSPECIFIED BEHAVIOR OF BONE, SOFT TISSUE, AND SKIN Right [place] papule Lesion biopsy Type of biopsy: tangential [...] 6 month skin check documented in this encounterSaint Luke's North Hospital–SmithvilleAguxdfrmxm05-53-2468 History of Present illness Narrative* Teo Johnson MD - 07/02/2024 10:40 AM EDT Chief Complaint Patient presents with Post-Cath 05/05 [...] lab data from May 2024 at the [facility] revealed LDL cholesterol of 135 mg/dL he [...] needed Assessment/Plan 1. Coronary artery disease involving match-e-be-nash-she-wish band coronary artery of match-e-be-n[place]wish band heart without angina pectorisAlanine Aminotransferase Aspartate Aminotransferase Lipid Panel rosuvastatin (Crestor) 20 mg tablet Follow Up In Cardiology Alanine Aminotransferase Aspartate Aminotransferase Lipid Panel 2. Hypertension, unspecified type 3. Hyperlipidemia, unspecified hyperlipidemia type Alanine Aminotransferase Aspartate Aminotransferase Lipid Panel rosuvastatin (Crestor) 20 mg tablet Alanine Aminotransferase Aspartate Aminotransferase Lipid Panel 4. PFO (patent foramen ovale) (HHS-HCC) 5. History of DVT (deep vein thrombosis) [...] my direction and personally dictated by me. Ihave reviewed the chart and agree that the record accurately reflects my personal performance of the history, physical exam, discussion and plan. [facility] Work Phone: 1(441) 551-554305-07-2025 Instructions* Patient Instructions* Ankita Mata LPN - 07/02/2024 10:40 AM [...] Follow up 9 months documented in this encounterEast [facility] Work Phone: 1(432) 300-548803-10-2025 [place] [address] Discharge Summary Signed Patient: Yanelis Noriega MR#: [id number] : 1945 Acct:[id number] Age/Sex: 79 / M Adm Date: 5 Loc: CL Room: Attending Dr: Teo Johnson MD Copies to: DO Teo Hill MD, [facility]~ Providers Date of Discharge: 05/05/24 Discharging Provider: [...] Low-Cholesterol Additional Instructions: DISCHARGE INSTRUCTIONS FOR CARDIAC TEMPERATURE REGULATOR PYROMETER PROCEDURE: Heart Cath The following instructions have [...] You may change the dressing only if soiledor wet. You may remove the dressing the [...] cold, numb, blue or white, call the clinical sales consultant immediately. 4. ACTIVITY: You are advised to [...] bottle, follow the instructions on the bottle. [facility] is not responsible for incorrect prescription [...] 05/05/24 09:28 Documented By: Teo Johnson MD, [facility] 1217 Signed By: 05/05/24 1217 [facility]03-10-2025 [place] [address] Cardiac Catheterization Note Signed Patient: Yanelis Noriega MR#: [id number] : 1945 Acct:[id number] Age/Sex: 79 / M Adm Date: Loc: Room: Type: [facility] Attending Dr: Teo Johnson MD Copies to: DO Teo Hill MD, [facility]~ Cardiac Catheterization (Left) DATE/PROVIDER 05/05/2024 Teo Johnson MD INDICATION Dyspnea on exertion/elevated coronary calcium score PRE PROCEDURE Frailty Scale: Well ASA Classification: 2 Mallampati Score: Class II POST PROCEDURE Cardiology Post-Op Diagnosis: Other (Diffuse atherosclerosis, no high-grade stenosis) PROCEDURE PROCEDURE MEDICATIONS: Versed 2 mg intravenously Approach: Femoral - Rt 1?left heart catheterization 2?left and right coronary angiography 3?LV gram 4?conscious sedation PROCEDURE DETAILS After obtaining informed consent the patient was brought to the cardiac Restaurant Crew. The right groin was prepped and draped in normal sterile fashion. 1% lidocaine was used for local anesthesia. A 4 Trinidadian SideArm sheath was placed in the right femoral artery without difficulties. A 4 Trinidadian JL 4 catheter was advanced over the wire and selectively engaged in left main coronary artery and multiple injections were taken. The catheter was then exchanged over the wire with a 4 Trinidadian 3 DRC catheter which was selectively engaged in the right coronary artery and 2 injections were taken. The catheter was exchanged over the wire with a 4 Trinidadian angled pigtail catheter which was placed in the left ventr icle and pressure was measured followed by LV gram at 30 degrees GRANT injection rate 12 cc/s or 2 seconds. The catheter was then flushed and pulled into the ascending aorta and was removed over the wire. The patient tolerated procedure very well without any complications and was transferred to the recovery room in stable condition. HEMOSTASIS Manual compression the [employer] SUMMARY OF FINDINGS CCS Classification: No symptoms Dominance: Right Left Main: Left main is a moderate-sized vessel heavily calcified but has no significant stenosis and divides into anterior descending artery left circumflex LAD-Prox: The left anterior descending artery is a large size vessel that provides a moderate-sized diagonal in the midsegment. Diffuse calcifications and luminal irregularities were noted. No high-grade stenosis were seen. The diagonal has no significant disease CIRC- Prox: The left circumflex is a moderate-sized nondominant vessel. It provides a largebranching obtuse marginal with luminal irregularities with no high-grade stenosis. Mild calcification is seen RCA: The right coronary artery is a moderate-sized dominant vessel that divides distally into a PDA and posterolateral branches. The vessel has diffuse irregularity and moderate calcification. No high-grade stenosis were seen. LEFT VENTRICLE EF %: 65 The left ventricle has normal size and function VALVE-AORTIC Aortic Valve Disease: No VALVE-MITRAL Mitral Valve Disease: No HEMODYNAMICS LVEDP 8 mmHg FLUOROSCOPY Diffuse coronary calcifications were noted mostly affecting the left main, proximal LAD and proximal left circumflex and proximal RCA IMPRESSION 1?diffuse coronary calcifications and atherosclerotic plaques with luminal irregularities with no high-grade stenosis 2?normal left ventricular ejection fraction at 65% 3?normal hemodynamics RECOMMENDATIONS Aggressive medical therapy Documented By: Teo Johnson MD, [facility] 5 1207 Signed By: 05/05/24 1214 [facility]03-06-2025 History of Present illness Narrative * Ashutosh Miller, DPM - 05/01/2024 11:30 AM EST Patient: Yanelis Nroiega : 1945 PCP: Blu Velez MD SUBJECTIVE [...] deep vein thrombosis of distal leg, left ([facility]) 2010 BPH (benign prostatic hyperplasia) Colon polyp ETD (Eustachian tube dysfunction), left GERD (gastroesophageal reflux disease) HLD (hyperlipidemia) ([facility]) HTN (hypertension) ([facility]) Hx-TIA (transient ischemic attack) Lumbar spondylosis Sensorineural [...] condition. Ashutosh Miller DPM documented in this encounterSaint [facility]–[id number] History of Present illness Narrative* Teo Johnson MD - 03/26/2024 11:20 AM EST Subjective Yanelis Noriega is a 79 y.o. [...] from previous visit. 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 Has had no previous cardiac evaluation for ischemia. His echocardiogram from 2023 was unremarkable except for PFO. He has [...] visit and encouragement for more weight loss wasprovided 7-high risk medication anticoagulation using Eliquis without [...] daily in the evening., Disp: , Rfl: [id number] ORAL, Take 1 tablet by mouth early [...] In Cardiology 2. PFO (patent foramen ovale) (HHS-HCC) Follow Up In Cardiology 3. Shortness of breath Stress Test CT cardiac scoring wo IV contrast 4. High risk medication use 5. History of DVT (deep vein thrombosis) 6. Dyslipidemia 7. Overweight 8. BMI 27.0-27.9,adult 9. Former smoker Scribe Attestation By signing my name below, IAnkita LPN, Scribe attest that this documentation has been prepared under the direction and in the presence of Teo Johnson MD. Provider Attestation - Scribe documentation All medical record entries made by the Scribe were at my direction and personally dictated by me. Ihave reviewed the chart and agree that the record accurately reflects my personal performance of the history, physical exam, discussion and plan. documented in this [facility] Work Phone: 1(567) 446-803501-29-2025 Instructions* Patient Instructions* Ankita Mata LPN - 03/26/2024 11:20 AM [...] Same medications Follow up documented in this [facility] Work Phone: 1(399) 285-102612-26-2024 History of Present illness Narrative* Ashutosh Miller DPM - 02/21/2024 11:30 AM EST Patient: Yanelis Noriega : 1945 PCP: Blu [...] deep vein thrombosis of distal leg, left (CMS/HCC) 2010 BPH (benign prostatic hyperplasia) Colon polyp ETD (Eustachian tube dysfunction), left GERD (gastroesophageal reflux disease) HLD (hyperlipidemia) (CMS/HCC) HTN (hypertension) (CMS/[facility]) Hx-TIA (transient ischemic attack) Lumbar spondylosis Sensorineural [...] condition. Ashutosh Miller DPM documented in this encounterSaint [facility]–[id number] Evaluation note* Diagnosis Onset Date Resolution Status Admit Date Cerebral atherosclerosis acuteFebruary 13, 2024 1:19pmHx of TIA (transient ischemic attack) and stroke acuteFebruary 13, 2024 1:19pmHypercholesteremiaacuteFebruary 13, 2024 1:19pm Medicare annual wellness visit, subsequentacuteFebruary 13, 2024 1:19pmPFO (patent foramen ovale)acuteFebruary 13, 2024 1:19pmPrimary hypertensionacute February 13, 2024 1:19pmScreening PSA (prostate specific antigen)acuteFebruary 13, 2024 1:19pmSimple chronic bronchitisacuteFebruary 13, 2024 1:19pm [facility] Work Phone: 1([phone]) 284-942110-17-2024 History of Present illness Narrative* Ashutosh Miller DPM - 12/13/2023 11:30 AM EDT Patient: Yanelis [...] deep vein thrombosis of distal leg, left ([facility]) 2010 BPH (benign prostatic hyperplasia) Colon polyp ETD (Eustachian tube dysfunction), left GERD (gastroesophageal reflux disease) HLD (hyperlipidemia) ([facility]) HTN (hypertension) (CMS/[facility]) Hx-TIA (transient ischemic attack) Lumbar spondylosis Sensorineural [...] condition. 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 They are also encouraged to continue exercise to achieve/maintain a normal BMI. Aug,Elevated cholesterol (ICD-10 - E78.00) Aug,therosclerotic cerebrovascular disease (ICD-10 - I67.2)Continue ASA and Statin therapy Continue AC w/ Eliquis No focal abnormalities noted Continue secondary prevention measures Aug,Hx of deep venous thrombosis (ICD-10 - Z86.718)Continue lifelong AC due to unprovoked DVT Aug,Hx of TIA (transient ischemic attack) and stroke (ICD-10 - Z86.73) Continue secondary prevention measures Monitor for focal neurologic deficits Aug,Mild intermittent asthma without complication (ICD-10 - J45.20)No ER visits for AE asthma Aware to use ARIEL as needed Avoid triggers, irritants ARIEL as needed for allergies, weather changes and acute respiratory illnesses Aug,Recurrent occipital headache (ICD-10 - R51.9)ROM exercises w/ cervical spine and shoulders Heat/ice and Tylenol as needed PT for cervical traction and HEP Aug,lurred vision, bilateral (ICD-10 - H53.8)Refer back to project controls specialist and check MRI to r/o occipital mass or infarct [employer] Other 07-05-2023 Hospital Discharge instructions Patient Education [...] urethra. Follow these instructions at home: Take dzon-etq-zmdovjs and prescription medicines only as told by [...] provider. Document Revised: 08/31/2021 Document Reviewed: 08/31/2021 [employer] Patient Education 2022 Asset Mapping. Follow Up Care 2022 12:11:39 With:Fred TABARES, ALVARO Brizuela, URO Address: When: Unknown Comments:FELIZ [facility] 06-27-2021 History of Present illness Narrative* [...] from the original note were not included. [facility] Office: [phone] Felton Molina DO, Saleem De Jesus DO, Arden Maharaj DO, Reji Swann DO, Mamadou Adame MD, Nkii Monzon MD, Siobhan Delacruz MD, Desirae Diop MD, Chico Montez MD, Sara England MD, MD Socorro, Theo Cabello MD, Cedrick Lomax DO, Namrata Adames MD, Uzair Lawson DO, MD Elida, Abdirashid Lopez DO, Florencio Barry MD, Bob Araiza MD, Taqueria Leon MD, Glen Dial MD, Rachel Mclean, ENVIRONMENTAL SAFETY SPECIALIST, Malia Keane ENVIRONMENTAL SAFETY SPECIALIST, Arina Faustin, ENVIRONMENTAL SAFETY SPECIALIST, Lissette Kaur, ASSISTANT DESIGNER,Kanu Gaxiola, ENVIRONMENTAL SAFETY SPECIALIST, Samantha Holden, ENVIRONMENTAL SAFETY SPECIALIST, Brianna Clark, ENVIRONMENTAL SAFETY SPECIALIST, Sridevi Mayo, ENVIRONMENTAL SAFETY SPECIALIST, Curt Arthur, ENVIRONMENTAL SAFETY SPECIALIST, CHASE Sahni-C, Lucy Romero, MELVIN, Mary Ann Hernandez, ENVIRONMENTAL SAFETY SPECIALIST, Tri Marshall, ENVIRONMENTAL SAFETY SPECIALIST, Joanna Giordano, ENVIRONMENTAL SAFETY SPECIALIST, David Austin, ENVIRONMENTAL SAFETY SPECIALIST, Kenisha Lund, ENVIRONMENTAL SAFETY SPECIALIST, Martha Zeng, ENVIRONMENTAL SAFETY SPECIALIST [facility] IN-PATIENT SERVICE [facility] Progress Note 08/22/2020 11:53 AM Name: Yanelis Noriega Acct: [id number] Room: IP Day: 1 Admit Date: 08/21/2020 [...] No results for input(s): PROT, LABALBU, LABA1C, M1LWRXM, K5JFLMP, FT4, TSH, AST, ALT, LDH, GGT, ALKPHOS, LABGGT, BILITOT, BILIDIR, AMMONIA, AMYLASE, LIPASE, LACTATE, CHOL, HDL, LDLCHOLESTEROL, CHOLHDLRATIO, TRIG, VLDL, BAL42XJ, PHENYTOIN, PHENYF, URICACID, POCGLU in the last 72 hours. ABG:No results found for: POCPH, PHART, PH, POCPCO2, JUY2IKS, PCO2, POCPO2, PO2ART, PO2, POCHCO3, IPU8IQK, HCO3, NBEA, PBEA, BEART, BE, THGBART, THB, EYQ5KOA, DSVU3UNK, K6YGXVND, O2SAT, FIO2 No results found for: SPECIAL [...] with evidence of patent foramen ovale with vujqn-ym-hxcn shunt. 4. Monitoring control blood pressure 5. Activity as tolerated 6. Discharge planning Arden Maharaj DO 08/22/2020 11:53 AM * Elisa Ferraro MD - 08/22/2020 11:15 AM EDT Ortho HD #2 Seen and evaluated with Dr. Maharaj present for discussion Patient had RTKR about 10 days ago, was seen in [place] ED Sunday evening after very aggressive PTsession [...] with significant increase in pain. went to [facility] via squad. pt states he received [...] Assistance: Needs assistance Homemaking Responsibilities: Yes Active Roller: Yes Mode of Transportation: SUV Occupation: Retired [...] 0820 Time Out 0900 Minutes 40 Reji Dailey PT * Luis M Jewell [facility] - 08/21/2020 2:08 PM EDT Transitions of Care Pharmacy Service Medication Review The patient's list of current home medications has been reviewed and updated. Source(s) of information: Patient/Patient's /Sure Script/Patient warfarin regimen paper Please feel free to call with any questions about this encounter. Thank you. Luis M Jewell [facility] Transitions of Care Pharmacy Service Prior to [...] 2019 per stretcher in stable condition from [place] ER Oriented to room and surroundings Bed in lowest position, wheels locked, 2/4 side rails up Call light in reach, room free of clutter, adequate lighting provided Denies any further questions at this time Instructed to call out with any questions/concerns/new onset of pain and/or n/v White board updated Continue to monitor with hourly rounding STAY WITH [place] protocol initiated Bed alarm on/Fall Risk signs in place/Fall risk sticker to wrist band Non-skid socks on/at bedside MEDICATION EDUCATION SHEET in place for patient/family to view & ask questions. documented in this [facility] [employer] Phone: 1(233) 802-766506-27-2021 Hospital course Narrative* Elisa Ferraro MD - 08/22/2020 11:35 [place] [address] DISCHARGE SUMMARY Patient: Yanelis Noriega Reg#: [id number] Date: 1945 Date of Admission & Surgery: 08/21/2020 Date of Discharge: 08/22/2020 Attending Surgeon: Elisa Ferraro M.D. PCP: Blu Velez, History and Hospital Course The patient has had severe pain and swelling in the knee, was evaluated in ED and admitted for Ortho eval. Medical evaluation and co-management is provided by the treasury management sales consultant medical staff, Dr. Maharaj,at this [...] 2 units of plasma in ED in [facility]; at this time his hemoglobin is stable, [...] Complications: None Disposition: [facility] Phone: 1(727) 691-184406-15-2021 History of Present illness Narrative* Stella Jacobs RN - 08/10/2020 12:39 PM EDT Patient discharged via wheelchair to home with all his belongings in stable condition. Patient understood and signed AVS. * Azra Hankins, OT - 08/10/2020 11:15 AM EDT Occupational [...] in standing while holding grab bar. Pt paul good learning) Toileting: (Pt had no needs this visit) Additional Comments: Pt paul good safety and indp throughout shower, dressing, and grooming routine Balance Sitting Balance: Supervision Standing Balance: Contact guard assistance (CGA fading to SBA) Standing Balance Time: Pt paul good (-) standing balance during functional mob and grooming tasks at [facility] with RW for support Functional Mobility Functional [...] sit: Contact guard assistance Transfer Comments: Pt paul safe transfer technique Cognition Overall Cognitive Status: WNL Plan Plan Times per week: 5-6x/week while IP Times per day: Daily Current Treatment Recommendations: Self-Care / ADL, Equipment Evaluation, Education, & procurement, Functional Mobility Training, Stair training, Pain Management, Endurance Training AM-PAC Score 21 Goals Short term goals Time Frame for Short term goals: By discharge, pt to mary carmeno Short term goal 1: bed mobility to [...] maintain strength to assist with self care. alf goals alf goal 1: Pt to be I with sugical precuations, recommendations for AE/DME and fall prevention/EC/WS education with use of handouts as needed. Patient Goals Patient goals : To go home! Therapy Time Individual Concurrent Group Co-treatment Time In 951 (plus 10 min (11:10-11:20) to discuss tub transfer bench) Time Out 1100 Minutes 68 Azra Hankins, OT * Elisa Ferraro MD - 08/10/2020 11:07 AM EDT Ortho POD # 1 and Discharge Feels fine now, stayed overnight bc of confusion post anesthesia, and complete numbness of the right (operative) foot. Was unable to participate in PT. 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 Leisure & Hobbies: working outside Additional Comments: [...] ice on R knee, LUE IV, L Walter hose on Edema: none AROM RLE (degrees) RLE General AROM: 0-40 degrees flexion knee to pain tolerance supine AROM LLE (degrees) LLE AROM : WNL Strength RLE Comment: + SLR; +partial LAQ Strength LLE Strength LLE: WFL See OT evmaude for UE ROM/MMT Sensation Overall Sensation Status: [...] Left in bed, Nurse notified AM-PAC Score AM-[facility] Inpatient Mobility Raw Score : 12 (08/09/201752) AM-PAC Inpatient T-Scale Score : 35.33 (08/09/201752) Mobility Inpatient CMS 0-100% Score: 68.66 (08/09/201752) Mobility Inpatient CMS G-Code Modifier : CL (08/09/201752) Goals Short term goals Time Frame for Short term goals: 8 visits: Patient Goals Patient goals : stay tonight Short Term Goal 1: Pt. To be indep. With bed mob. 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 alf goals alf goal 1: Pt to be I with [...] EDT Pt has percocet escribed to [facility] in [place], [place]. Pt will resume home medication coumadin [...] Dr. Ferraro for platelets [facility] Phone: 1(404) 573-665306-15-2021 Hospital course Narrative* Elisa Ferraro MD - 08/10/2020 11:12 [place] [address] DISCHARGE SUMMARY Patient: Yanelis Noriega Reg#: [id number] Date: 1945 Date of Admission & Surgery: 08/09/2020 Date of Discharge: 08/10/2020 Attending Surgeon: Elisa Ferraro M.D. PCP: Blu Velez DO History and Hospital Course The patient has had severe pain and arthritis of the knee, unresponsive to conservative treatment and is now admitted for joint replacement. Medical evaluation and postoperative co-management is provided by the treasury management sales consultant medical staff. The patient underwent [...] Complications: None Disposition: Home [facility] Phone: 1(263) 999-412506-15-2021 Hospital Discharge instructions* Discharge Instr - Diet* [...] most local grocery stores, pharmacies, and chain super-stores. If you have any questions about your diet or nutrition, call the hospital and ask for the dietitian. * Additional Instructions* Naun Byers RN - 08/09/2020 Images from the original note were not included. ANY ORTHOPEDIC QUESTIONS OR ANY OTHER CONCERNS YOU MAY CALL THE ORTHOPEDIC COORDINATOR: NAUN BYERS RN, BSN [phone] [email or web address] YOU MAY ALSO MESSAGE ME ON GET [...] instructions. If dressing falls off, call surgeon. Walter Hose on in the am and off [...] orthopedic appointment with surgeon Discharge instructions video: [email or web address] Keep it Clean Post-Operative Home instructions These instructions are to help you have the best possible recovery after your surgical procedure. [facility] is here to support you. If you have questions, call [phone] Sunday through Sunday from 7:30AM to 8:30PM to speak to a nurse. If you need to speak to someone outside of these hours, call your physician. Incision Do s and Don ts Do wash hands before and after dressing changes or when you have had any contact with your incision. Use hand call person or antibacterial soap. Do keep your incision [...] Care Everywhere. * Hip Replacement (Anterior): Post-op (Qatari) * Stroke (Qatari) * Constipation (Qatari) * DVT (Deep Vein Thrombosis): General Info (Qatari) * acetaminophen and oxycodone (Qatari) * warfarin (oral) (Qatari) * docusate (oral/rectal) ([place]ari) * Enoxaparin (Lovenox) ([place]ari) [facility] this [facility] Phone: 1(766) 180-648505-20-2021 History of Present illness Narrative* Naun Byers RN - 07/15/2020 9:30 AM EDT [facility] Joint Replacement Pre-surgical Assessment Scheduled Surgery Date: 08/09/2020 Surgery Time: 1045 Surgeon: OSORIO Procedure: right Total Knee Primary Insurance Coverage MEDICARE PART A&B, 2- [facility] SUPP Pre-op class attended YES 07/15/2020. PCP: [...] done History of transient ischemic attack (TIA) [id number] found on a brain scan at [facility] (perpatient) Hx of blood clots 2011 left leg Hyperlipidemia Hypertension Snores Smoking history: none Alcohol history: Never drinks Concerns prior to surgery: PT HAS A FWW. * Kirstni Singer RN - 07/15/2020 9:30 AM EDT Patient watched the Understanding a Nerve Block video during the PAT visit today. [facility] [employer] Work Phone: chilf complaint Narrative - ReportedYANELIS NORIEGA is being seen for an initial evaluation of Laureano evaluation.-[facility] [address] DO Work Phone: Chiie complaint Narrative - Reported* YANELIS NORIEGA is [...] neurological symptoms. He had transthoracic echocardiogram in [facility] which she read possible PFO. There was [...] I did review the echo report from [facility] and the other imaging studies. * Assessment/recommendations: [...] to lose weight with diet and exercise [facility] DO Work Phone: Discharge summary Author Teo Johnson [facility] HospitalNote Date/TimeMarch 2024 4:15pm[address] [address] Discharge Summary Signed Patient: Yanelis Noriega MR#: [id number] : 1945 Acct:[id number] Age/Sex: 79 / M Adm Date: 5 Loc: Room: Attending Dr: Teo Johnson MD Copies to: DO Teo Hill MD, FACC~ Providers Date of Discharge: 05/05/24 Discharging Provider: [...] Low-Cholesterol Additional Instructions: DISCHARGE INSTRUCTIONS FOR CARDIAC TEMPERATURE REGULATOR PYROMETER PROCEDURE: Heart Cath The following instructions have [...] You may change the dressing only if soiledor wet. You may remove the dressing the [...] cold, numb, blue or white, call the clinical sales consultant immediately. 4. ACTIVITY: You are advised to [...] bottle, follow the instructions on the bottle. [facility] is not responsible for incorrect prescription [...] 05/05/24 09:28 Documented By: Teo Johnson MD, [facility] 5 1217 Signed By: <Electronically signed by MD LINO Johnson> 05/05/24 1217 [facility] Work Phone: Evaluation + Plan note No data available for this section [facility] evaluation note* Diagnosis Primary osteoarthritis of right knee- Primary Primary localized osteoarthrosis, lower leg S/P total knee arthroplasty, right History of DVT (deep vein thrombosis) Personal history of venous thrombosis and embolism documented in this encounter [id number] Work Phone: evaluation note* Diagnosis Hemarthrosis of right [...] use of anticoagulants documented in this encounter [employer] Work Phone: evaluation noteNo InformationNosaint joseph hospital [facility] [employer] Other Evaluation note* Diagnosis Abnormal echocardiogram Nonspecific (abnormal) findings on radiological and other examination of other intrathoracic organs Cerebrovascular accident (CVA), unspecified mechanism (CMS/HCC) documented in this encounter [facility] Work Phone: Evaluation note* Diagnosis Abnormal echocardiogram Nonspecific (abnormal) findings on radiological and other examination of other intrathoracic organs Cerebrovascular accident (CVA), unspecified mechanism (CMS/HCC) documented in this encounter [facility] Work Phone: Evaluation noteNo assessment information available [facility] Work Phone: Evaluation note* Diagnosis Onset Date Resolution Status Chronic obstructive pulmonary disease wi th (acute) exacerbation noneactiveAcute bronchitis due to other specified organismsnoneactive [facility] Work Phone: Evaluation note* Diagnosis Onset Date Resolution Status Chronic obstructive pulmonary disease wi th (acute) exacerbation noneactiveAcute bronchitis due to other specified organismsnoneactiveAcute bronchitis due to other specified organismsnoneactiveAsthmanoneactiveChronic obstructive pulmonary disease with (acute) lower respiratory infectionnoneactive Acute exacerbation of chronic obstructive airways diseasenoneactive [facility] Work Phone: Evaluation note* Diagnosis Onset Date Resolution Status Cerebral atherosclerosis acuteHx of TIA (transient ischemic attack) and strokeacuteHypercholesteremia acutePFO (patent foramen ovale)acutePrimary hypertensionacuteSimple chronic bronchitisacute [facility] Work Phone: Evaluation note* Diagnosis Onset Date Resolution Status Cerebral atherosclerosis acuteHx of TIA (transient ischemic attack) and strokeacuteHypercholesteremia acutePFO (patent foramen ovale)acutePrimary hypertensionacuteSimple chronic bronchitisacuteHistory of left knee replacementacutePainful total knee replacement, [facility] Work Phone: Evaluation note* Diagnosis Onset Date Resolution Status History of left knee replacement acutePainful total knee replacement, [facility] Work Phone: Evaluation note* Diagnosis Pain due to onychomycosis of toenails of both feet- Primary documented in this encounter [facility] HealthcareEvaluation note* Diagnosis Onset Date Resolution Status Hypercoagulable state acuteParonychiaacuteToe pain, [facility] Work Phone: Evaluation note* Diagnosis Pain due to onychomycosis of toenails of both feet- Primary Xerosis cutis Other specified disease of sebaceous glands documented in this encounter [facility] HealthcareEvaluation note* Diagnosis Primary hypertension- Primary Unspecified essential hypertension PFO (patent foramen ovale) ([facility]) Ostium secundum type atrial septal defect Shortness of breath High risk medication use History of DVT (deep vein thrombosis) Dyslipidemia Other and unspecified hyperlipidemia Overweight BMI 27.0-27.9,adult Former smoker Personal history of tobacco use, presenting hazards to health documented in this encounter [facility] Work Phone: Evaluation note* Diagnosis Shortness of breath documented in this encounter [facility] Work Phone: Evaluation note* Diagnosis Shortness of breath documented in this encounter [facility] Work Phone: Evaluation note* Diagnosis Coronary artery disease involving match-e-be-nash-she-wish band coronary artery of match-e-be-nash-she-wish band heart without angina pectoris Hypertension, unspecified type Hyperlipidemia, unspecified hyperlipidemia type PFO (patent foramen ovale) ([facility]) Ostium secundum type atrial septal defect History of DVT (deep vein thrombosis) High risk medication use BMI 27.0-27.9,adult Former smoker Personal history of tobacco use, presenting hazards to health documented in this encounter [facility] Work Phone: Evaluation note* Diagnosis Onset Date Resolution Status Admit Date Anticoagulated on Coumadin acuteJun2024 1:14pmCerebral atherosclerosisacuteJun2024 1:14pmHx of TIA (transient ischemic attack) and strokeacuteJun2024 1:14pm HypercholesteremiaacuteJun2024 1:14pmOverweightacuteJun2024 1:14pm PFO (patent foramen ovale)acuteJun2024 1:14pmPrimary hypertensionacute August 04, 2024 1:14pmSimple chronic bronchitisacuteAugust 04, 2024 1:14pm Suspected sleep apneaacuteAugust 04, 2024 1:14pm [facility] Work Phone: Evaluation note* Diagnosis Neoplasm of unspecified behavior of bone, soft tissue, and skin documented in this encounter [facility] HealthcareEvaluation note* Diagnosis Pain due to onychomycosis of toenails of both feet- Primary Xerosis cutis Other specified disease of sebaceous glands documented in this encounter [facility] HealthcareEvaluation note* Diagnosis 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 Salinas)Surgical HistoryherniaHospitalization HistorySEE SURGICAL [facility] [employer] Other History of Present illness Narrative* Ashutosh Miller DPM - 09/25/2024 10:50 AM EDT Patient: Yanelis Noriega : 1945 PCP: Blu Velez, DO SUBJECTIVE This is a 79 y.o. male that presents today with a CC of elongated, thick nails. Pt states nails have been elongated and thick for many years and cause pain with ambulation in shoegear. Pt has tried previous treatment with minimal relief. Pt presents today for nail care and treatment. 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 Allergies: Allergies Allergen Reactions Iodinated Contrast Media Hives and Itching Iodine Unknown Sulfa Antibiotics Hives and Unknown Past Medical History: Past Medical History: Diagnosis Date Acute deep vein thrombosis of distal leg, left (HCC) 2010 BPH (benign prostatic hyperplasia) Colon polyp ETD (Eustachian tube dysfunction), left GERD (gastroesophageal reflux disease) HLD (hyperlipidemia) HTN (hypertension) Hx-TIA (transient ischemic attack) Lumbar spondylosis Sensorineural [...] 10 mg by mouth in the evening (Patient not taking: Reported on 08/18/2024), Disp: , Rfl: benazepril (Lotensin) 20 MG tablet, Take 20 mg by mouth in the evening, Disp: , Rfl: hydroCHLOROthiazide (HYDRODiuril) 12.5 MG tablet, Take 1 tablet by mouth in the morning., Disp: , Rfl: rosuvastatin (Crestor) 20 MG tablet, Take 20 mg by mouth, Disp: , Rfl: Social History: Social History [...] condition. Ashutosh Miller DPM [facility]* Attachments The following attachments cannot be sent through Care Everywhere. * TKR (Total Knee Replacement): Post-op (Qatari) * apixaban (Qatari) documented in this [facility] [employer] Work Phone: Hospital Discharge instructions Additional Instructions DISCHARGE INSTRUCTIONS FOR CARDIAC TEMPERATURE REGULATOR PYROMETER PROCEDURE: Heart Cath The following instructions have [...] cold, numb, blue or white, call the clinical sales consultant immediately. 4. ACTIVITY: You are advised to [...] bottle, follow the instructions on the bottle. [facility] is not responsible for incorrect prescription information provided by the patient during their visit. Do not stop your medications without consulting your health care provider. Please take the list with you to your next doctor's appointment.[facility] Work Phone: Progress note No data available for this section [facility] reason for referral (narrative)* Reason Referral for possibl e ASD with history of cerebral infarction and lower extremity DVT. Diagnosis 1 Primary hypertension (I10) Diagnosis 2 Atherosclerotic cere brovascular disease (I67.2) Referral Organization [facility] rosina Referring Provider First Name Blu Referring Provider Last Name Clovis Referring Provider Specialty Internal Me dicine Referred Organization [facility] Referred Provider Cristofer Gómez Referred Address [address] [place], [place],[address] Referred Provider Specialty Cardiology Referral Priority Routine [...] am, Carotid US, MRA brain and labs [employer] Other Reason for referral (narrative)No reason for [facility] Reason for visit Narrative* Cardiac Stress Testing (Routine) - AuthorizedSpecialtyDiagnoses / ProceduresReferred By Contact Referred To ContactCardiology Diagnoses Shortness of breath Procedures Stress Test IN CV STRS TST XERS&/OR RX CONT ECG TRCG ONLY Teo Johnson MD [address] [place] [address] [facility] 2, [address] [address] Phone: tel: fax: Referral IDStatusReasonStart DateExpiration DateVisits RequestedVisits [id number]/29/20251/ [facility] Work Phone: Reason for visit Narrative* Imaging (Routine) - AuthorizedSpecialtyDiagnoses / ProceduresReferred By ContactReferred To ContactRadiology Diagnoses Shortness of breath Procedures CT cardiac scoring wo IV contrast Teo Johnson MD [address] [place] [address] [address] [place] [address] Phone: tel: fax: Referral IDStatusReasonStart DateExpiration DateVisits RequestedVisits [id number] Perform Procedure / [facility] Work Phone: Summary Purpose Family History Unknown Family Member Name Dates Details Family history of myasthenia gravis: Mother(V17.89, Z82.0) Status:ActiveFamily history of hypertension: Mother(V17.49, Z82.49) Status:ActiveFamily history of diabetes mellitus: Mother(V18.0, Z83.3) Status:ActiveFamily history of hyperlipidemia: Mother(V18.19, Z83.438) Status:ActiveFamily history of cerebrovascular accident (CVA): Mother(V17.1, Z82.3) Status:ActiveFamily history of congestive heart failure: Mother, Sister, Brother (V17.49, Z82.49) Status:ActiveFamily history of dementia: Father(V17.2, Z81.8) Status:ActiveFamily history of malignant neoplasm of kidney: Father(V16.51, Z80.51) Status:ActiveFamily history of malignant neoplasm of colon: Sister, Brother (V16.0, Z80.0) Status:ActiveFamily history of malignant neoplasm: Sister, Brother(V16.9, Z80.9) Status:Active Unknown Family Member Name Dates Details Family history of myasthenia gravis: Mother(V17.89, Z82.0) Status:ActiveFamily history of hypertension: Mother(V17.49, Z82.49) Status:ActiveFamily history of diabetes mellitus: Mother(V18.0, Z83.3) Status:ActiveFamily history of hyperlipidemia: Mother(V18.19, Z83.438) Status:ActiveFamily history of cerebrovascular accident (CVA): Mother(V17.1, Z82.3) Status:ActiveFamily history of congestive heart failure: Mother, Sister, Brother (V17.49, Z82.49) Status:ActiveFamily history of dementia: Father(V17.2, Z81.8) Status:ActiveFamily history of malignant neoplasm of kidney: Father(V16.51, Z80.51) Status:ActiveFamily history of malignant neoplasm of colon: Sister, Brother (V16.0, Z80.0) Status:ActiveFamily history of malignant neoplasm: Sister, Brother(V16.9, Z80.9) Status:Active Relationship Condition Age at Onset Recorded Date/T es father Unknown Not SpecifiedDeceasedUnknown Relationship Condition Age at Onset Recorded Date/T es father Unknown motherDeceasedUnknown Relationship Condition Age at Onset Recorded Date/T es father Dementia Unknown DeceasedUnknownmotherDiabetes mellitusUnknownMyasthenia gravisUnknown Cerebrovascular accident (CVA)UnknownsisterMalignant neoplasm of colonUnknown brotherBlood disorderUnknownbrotherMyocardial infarctionUnknownbrotherUnknown History of heart valve replacementUnknown Advance Directives Code StatusDate ActivatedDate InactivatedCommentsFull Code08/09/2020 9:06 PMCode StatusDate ActivatedDate InactivatedCommentsFull Code08/21/2020 10:04 AMFull Code 08/09/2020 9:06 PM08/10/2020 2:45 PM Advance Directive Response Recorded Date/ Time Advance Directives No December 15, 2016 1:09pm Advance Directive Response Recorded Date/ Time Advance Directives No December 15, 2016 2:09pm Reason for Referral SpecialtyDiagnoses / ProceduresReferred By ContactReferred To ContactCardiology Diagnoses Abnormal echocardiogram Cerebrovascular accident (CVA), unspecified mechanism (CMS/HCC) Procedures Transthoracic Echo (TTE) Limited IN ECHO TRANSTHORC R-T 2D W/WO M-MODE REC F-UP/LMTD IN DOP ECHOCARD COLOR FLOW VELOCITY MAPPING IN DOP ECHOCARD PULSE WAVE W/SPECTRAL F-UP/LMTD STD Teo Johnson MD [address] [place] [address] Referral IDStatusReasonStart DateExpiration DateVisits RequestedVisits [id number] Perform Procedure Chief Complaint and Reason for Visit Chief Complaint Wellness Sore Throat, Congestion- [phone] Chief Complaint Wellness Sore Throat, Congestion- [phone] Wheezy, Congested-COVID NegativeReason for VisitChronic obstructive pulmonary disease with (acute) exacerbation Acute bronchitis due to other specified organisms Chief Complaint Sore Throat, Congest ion- [phone] Wheezy, Congested-COVID Negative Sick- WheezyReason for VisitChronic obstructive pulmonary disease with (acute) exacerbation Acute bronchitis due to other specified organisms Acute bronchitis due to other specified organisms Asthma Chronic obstructive pulmonary disease with (acute) lower respiratory infection Acute exacerbation of chronic obstructive airways disease Chief Complaint Amb Documentation 6 month follow upReason for VisitCerebral atherosclerosis Hx of TIA (transient ischemic attack) and stroke Hypercholesteremia PFO (patent foramen ovale) Primary hypertension Simple chronic bronchitis Chief Complaint Amb Documentation 6 month follow up Z96.652 - Presence of left artificial knee joint NEW LT TKA PAIN NXReason for VisitCerebral atherosclerosis Hx of TIA (transient ischemic attack) and stroke Hypercholesteremia PFO (patent foramen ovale) Primary hypertension Simple chronic bronchitis History of left knee replacement Painful total knee replacement, left Chief Complaint Amb Documentation 6 month follow up Z96.652 - T84.84XA NEW LT TKA PAIN NXReason for VisitCerebral atherosclerosis Hx of TIA (transient ischemic attack) and stroke Hypercholesteremia PFO (patent foramen ovale) Primary hypertension Simple chronic bronchitis History of left knee replacement Painful total knee replacement, left Chief Complaint Z96.652 - T84.84XA NEW LT TKA PAIN NX toe infectionReason for VisitHistory of left knee replacement Painful total knee replacement, left Chief Complaint toe infection flu shotReason for VisitHypercoagulable state Paronychia Toe pain, left Chief Complaint Admit [...] sleep apnea August 04, 2024 1:1 4pm Chief Complaint Admit Date Flu Shot December 09, 2024 3 :42pm Chief Complaint Admit Date Flu Shot December 09, 2024 3 :42pm Ear infection December 22, 2024 1 0:36am Additional Source Comments (unrecognized sect ion and content) No Status Records FoundNo Status Records FoundNo Status Records FoundNo Status Records FoundNo Status Records FoundNo Status Records FoundNo Status Records FoundNo Status Records FoundNo Status Records FoundNo Status Records Found INFORMATION SOURCE (unrecogn ized section and content) DATE CREATED AUTHOR 08/14/2017 [facility] DATE CREATED AUTHOR AUTHOR'S ORGANIZ ATION 08/22/2020 [facility] DATE CREATED AUTHOR AUTHOR'S ORGANIZ ATION 02/24/2022 [facility] DATE CREATED AUTHOR AUTHOR'S ORGANIZ ATION 08/31/2022 [facility] DATE CREATED AUTHOR AUTHOR'S ORGANIZ ATION 11/10/2022 [facility] DATE CREATED AUTHOR AUTHOR'S ORGANIZ ATION 11/12/2022 [employer] DATE CREATED AUTHOR AUTHOR'S ORGANIZ ATION 05/05/2024 [facility] DATE CREATED AUTHOR AUTHOR'S ORGANIZ ATION 05/28/2024 [facility] DATE CREATED AUTHOR AUTHOR'S ORGANIZ ATION 11/28/2024 [facility] DATE CREATED AUTHOR AUTHOR'S ORGANIZ ATION 12/20/2024 [facility] EPIC Reason for Visit (unrecogniz ed section and content) StatusReasonSpecialtyDiagnoses / ProceduresReferred By ContactReferred To Contact Diagnoses Osteoarthritis of right knee DX RIGHT KNEE OA Procedures IN TOTAL KNEE ARTHROPLASTY RIGHT KNEE TOTAL ARTHROPLASTY- Elisa Zhang MD [address] [facility]/ [place] [address] [facility] SpecialtyDiagnoses / ProceduresReferred By ContactReferred To ContactCardiology Diagnoses Abnormal echocardiogram Cerebrovascular accident (CVA), unspecified mechanism (CMS/HCC) Procedures Transthoracic Echo (TTE) Limited IN ECHO TRANSTHORC R-T 2D W/WO M-MODE REC F-UP/LMTD IN DOP ECHOCARD COLOR FLOW VELOCITY MAPPING IN DOP ECHOCARD PULSE WAVE W/SPECTRAL F-UP/LMTD STD Teo Johnson MD [address] [facility] 2, [address] [address] Referral IDStatusReasonStart DateExpiration DateVisits RequestedVisits [id number] Perform Procedure [id number] CareNon DM NailsReasonComments Toenail CareNon dm nail careReasonCommentsAnnual ExamSpecialtyDiagnoses / ProceduresReferred By ContactReferred To ContactCardiology Diagnoses PFO (patent foramen ovale) ([facility]) Abnormal echocardiogram Procedures Follow Up In Cardiology Teo Johnson MD [address] [facility] [address] [place] [address] Phone: tel: fax: Teo Johnson MD [address] [facility] [address], [address] [address] Phone: tel: fax: Referral IDStatusReasonStart DateExpiration DateVisits RequestedVisits [id number]/[id number] CareNon dm nial careReasonCommentsPost-Cath3/ReasonCommentsToenail CareReasonCommentsMohs Micrographic SurgeryReasonCommentsWound Check Ordered Prescriptions (unrec ognized section and content) PrescriptionSigDispensedRefillsStart DateEnd Date enoxaparin (LOVENOX) 80 MG/0.8ML injection Inject 0.8 mLs into the skin 2 times daily for 7 days 11.2 mL /rescriptionSigDispensedRefillsStart DateEnd Date oxyCODONE-acetaminophen (PERCOCET) 5-325 MG per tablet Indications:S/P total knee arthroplasty, rightTake 1 tablet by mouth every 4 hours as needed for Pain for up to 7 days. 42 tablet /05/2020 apixaban (ELIQUIS) 5 MG TABS tablet Take 1 tablet by mouth 2 times daily 60 tablet / apixaban (ELIQUIS) 5 MG TABS tablet Take 1 tablet by mouth 2 times daily 60 tablet / oxyCODONE-acetaminophen (PERCOCET) 5-325 MG per tablet Indications:S/P total knee arthroplasty, rightTake 1 tablet by mouth every 4 hours as needed for Pain for up to 7 days. 42 tablet Scheduled Active and Recently Administ ered Medications (unrecognized section and content) Medication Order// acetaminophen (TYLENOL) tablet 1,000 mg (COMPLETED) 1,000 mg, Oral, ONCE, On Sun08/09/20 at 0830, For 1 dose, PreOp nurse to check with anesthesiologist prior to administering the medication on the day of surgery., Pre-op (day of surgery) * 1003 (Given - Provider: Eugenie Avalos, ILYA) acetaminophen (TYLENOL) tablet 650 mg 650 mg, Oral, EVERY 6 HOURS, First dose on Sun08/09/20 at 2200, Maximum dose of acetaminophen is 4000 mg from all sources in 24 hours., Post-op * 2151 (Given - Provider: Shey Jackson RN) * 0319 (Given - Provider: Shey Jackson RN) * 0915 (Given - Provider: Stella Jacobs RN) * 1600 (Due) * 2200 (Due) ceFAZolin (ANCEF) 2000 mg in dextrose 5 % 50 mL IVPB (COMPLETED) 2,000 mg, Intravenous, ONCE, 1 dose, On Sun08/09/20 at 0830, Pre-op (day of surgery) * 1155 (Given - Provider: Darío Yancey APRN - SPONGE [employer]IVER) docusate sodium (COLACE) capsule 100 mg 100 mg, Oral, 2 TIMES DAILY, First dose on Sun08/10/20 at 1000, Do not crush or break. * 1051 (Given - Provider: Stella Jacobs RN) * 2100 (Due) enoxaparin (LOVENOX) injection 40 mg (COMPLETED) 40 mg, Subcutaneous, ONCE, On Sun08/10/20 at 0900, For 1 dose * 0915 (Given - Provider: Stella Jacobs RN) gabapentin (NEURONTIN) capsule 300 mg (COMPLETED) 300 mg, Oral, ONCE, On Sun08/09/20 at 0830, For 1 dose, PreOp nurse to check with anesthesiologist prior to administering the medication on the day of surgery., Pre-op (day of surgery) * 1003 (Given - Provider: Eugenie Avalos RN) [...] mL Midline or Central Line = 20 mL/lumen,Post-op * 2146 (Given - Provider: Shey Jackson RN) * 0916 (Given - Provider: Stella Jacobs, RN) * 2100 (Due) warfarin (COUMADIN) daily dosing (placeholder) This patient is currently receiving daily warfarin. Please check INR's and signs/symptoms of bleeding and bruising as appropriate. * 2245 (Due) warfarin (COUMADIN) tablet 2 mg (COMPLETED) 2 mg, Oral, ONCE Warfarin, On Sun08/09/20 at 2130, For 1 dose, Review INR prior to administration. Hazardous med- See facility policy for handling/disposal, Multiphase Phase of Care, Today * 2300 (Given - Provider: Shey Jackson RN) Medication Order/// lactated ringers infusion Intravenous, at 100 mL/hr, CONTINUOUS, Starting on Sun08/09/20 at 1030, Pre-op (day of surgery) * 1007 (New Bag - Provider: Eugenie Avalos RN) * 1308 (Paused - Provider: SHI Lopez CRNA - Comment: Switch to gravity) * 1309 (New Bag - Provider: SHI Lopez CRNA) * 1438 (Anesthesia Volume Adjustment - Provider: SHI Lopez CRNA) * 0925 (New Bag - Provider: Stella Jacobs RN) lactated ringers infusion (CANCELED) Intravenous, at 125 mL/hr, CONTINUOUS, Starting on Sun08/09/20 at 2130, Post-op * 2146 (New Bag - Provider: Shey Jackson RN) Medication Order/// 0.9 % sodium chloride infusion 25 mL, [...] PRN, Starting on Sun08/09/20 at 1238, Intra-op * 1338 (Given - Provider: Elisa Ferraro MD - Comment: vancomycin 1 gm added to mixture) fentaNYL (SUBLIMAZE) injection 25 mcg (CANCELED) 25 mcg, Intravenous, EVERY 5 MIN PRN, Pain Moderate (4-6), Starting on Sun08/09/20 at 0823, For 4 doses, Phase I - Initial therapy for moderate pain., PACU only * 1727 (Given - Provider: Basia Apple RN) fentaNYL (SUBLIMAZE) injection 50 mcg (COMPLETED) 50 mcg, Intravenous, EVERY 5 MIN PRN, Pain Severe (7-10), Starting on Sun08/09/20 at 0823, For 4 doses, Phase I - Initial therapy for severe pain., PACU only * 1452 (Given - Provider: Basia Apple RN) * 1504 (Given - Provider: Basia Apple RN) * 1524 (Given - Provider: Basia Apple RN) * 1554 (Given - Provider: Basia Apple RN) lubrifresh P.M. (artificial tears) ophthalmic ointment (COMPLETED) Left Eye, EVERY 2 HOURS PRN, Other, eye irritation, Starting on Sun08/09/20 at 2209, For 1 dose * 0039 (Given - Provider: Shey Jackson RN) morphine (PF) injection 2 mg(Linked Group 1) 2 mg, Intravenous, EVERY 2 HOURS PRN, Pain Moderate (4-6), Starting on Sun08/09/20 at 2106, If oraland IV narcotics ordered, use oral first and [...] if oral is ineffective or cannot take oral.Do Not give oral and IV within 1 hour of each other unless specifically ordered., Post-op ondansetron (ZOFRAN) injection 4 mg(Linked Group 2) 4 mg, Intravenous, EVERY 6 HOURS PRN, Nausea, Vomiting, Starting on Sun08/09/20 at 2106, Administerif oral route cannot be used., Post-op oxyCODONE (ROXICODONE) immediate release tablet 10 mg(Linked Group 3) 10 mg, Oral, EVERY 4 HOURS PRN, Pain Severe (7-10), Starting on Sun08/09/20 at 2106, Post-op * 2146 (Given - Provider: Shey Jackson RN) * 0517 (Given - Provider: Shey Jackson, ILYA) oxyCODONE (ROXICODONE) immediate release tablet 5 mg(Linked Group 3) 5 mg, Oral, EVERY 4 HOURS PRN, Pain Moderate (4-6), Starting on Sun08/09/20 at 2106, Post-op * 2146 (See Alternative - Provider: Shey Jackson RN) * 0517 (See Alternative - Provider: Shey Jackson, RN) promethazine (PHENERGAN) tablet 12.5 mg(Linked Group 2) 12.5 mg, Oral, EVERY 6 HOURS PRN, Nausea, Vomiting, Starting on Sun08/09/20 at 2106, Post-op sodium chloride 0.9 % irrigation (COMPLETED) CONTINUOUS PRN, Starting on Sun08/09/20 at 1340, Intra-op * 1340 (New Bag - Provider: Elisa Ferraro MD) sodium chloride flush 0.9 % injection 5-40 mL 5-40 mL, Intravenous, PRN, Line Care, Starting on Sun08/09/20 at 2106, After every IV line use, Post-op Order Group 1: morphine (PF) injection 2 mgJump to med 2 mg, Intravenous, EVERY 2 HOURS PRN, Pain Moderate (4-6), Starting on Sun08/09/20 at 2106
If oral and IV narcotics ordered, use oral first and only use IV if oral is ineffective or cannot take oral. Do Not give oral and IV within 1 hour of each other unless specificallyordered.
Post-op Or morphine sulfate (PF) injection 4 [...] (7-10), Starting on Sun08/09/20 at 2106, Post-op Medication Order08/20//// sodium chloride flush 0.9 % injection 5-40 [...] Midline or Central Line = 20 mL/lumen * 1147 (Given - Provider: Lawanda Scott, ILYA) * 2036 (Given - Provider: Katherine Hooper RN) * 0822 (Given - Provider: Lawanda Scott RN) * 2100 (Due) Medication Order// 0.9 % sodium chloride infusion (CANCELED) Intravenous, at 75 mL/hr, CONTINUOUS, Starting on 08/21/20 at 1030 * 1146 (New Bag - Provider: Lawanda Scott RN) Medication Order// 0.9 % sodium chloride infusion 25 mL, [...] Nausea, Vomiting, Starting on 08/21/20 at 1004, Administerif oral route cannot be used. ondansetron (ZOFRAN-ODT) [...] mg from all sources in 24 hours. * 1200 (See Alternative - Provider: Lawanda Scott RN) * 2036 (See Alternative - Provider: Katherine Hooper RN) * 0822 (Given - Provider: Lawanda Scott RN) * 1228 (Given - Provider: Lawanda Scott RN) oxyCODONE-acetaminophen (PERCOCET) 5-325 MG per tablet 2 tablet(Linked Group 4) 2 tablet, Oral, EVERY 4 HOURS PRN, Pain Severe (7-10), Starting on 08/21/20 at 1004, Maximum dose of acetaminophen is 4000 mg from all sources in 24 hours. * 1200 (Given - Provider: Lawanda Scott RN) * 2036 (Given - Provider: Katherine Hooper RN) * 0822 (See Alternative - Provider: Lawanda Scott, ILYA) * 1228 (See Alternative - Provider: Lawanda Scott, ILYA) polyethylene glycol (GLYCOLAX) packet 17 g 17 g, Oral, DAILY PRN, Constipation, Starting on 08/21/20 at 1004, First line therapy for constipation potassium bicarb-citric acid (EFFER-K) effervescent tablet 40 mEq(Linked Group 5) 40 mEq, Oral, PRN, Per Potassium Replacement Protocol, Starting on 08/21/20 at 1004, Administer as alternative if patient unable to tolerate oral tablet. K Lab Replacement Action 3.1 to 3.5 40 mEqORAL x 1 Under 3.1 Refer to IV [...] line use, Starting on 08/21/20 at 1004 Order Group 1: acetaminophen (TYLENOL) tablet 650 mgJump to med 650 mg, Oral, EVERY 6 HOURS PRN, Pain Mild (1-3), Fever, For temp greater than 100.4 F (38 C), Starting on 08/21/20 at 1004
Maximum dose of acetaminophen is 4000 mg from all sources in 24hours.
Or acetaminophen (TYLENOL) suppository 650 mgJump to [...] unable to tolerate oral tablet. K Lab & amp;nbsp; & amp;nbsp;Replacement Action 3.1 to 3.5 &am p;nbsp; 40 mEq ORAL x 1 Under 3.1 Refer to IV replacement protocol Recheck K level in AM. Protocol not f or use in patients with CrCl less than 30 mL/min. Do not chew or crush. Dissolve flavored tablets completely in 3 to 4 ounces of cold water; unflavored tablets may be dissolved in 3to 4 ounces of cold juice. Patient to [...] DO Primary Care Provider Active Team Status: Active Member Role Status Dates Blu Velez DO Primary Care Provider Active Start: September 12, 2024 Lazara Hassan ProviderActiveStart: September 12, 2024 Team Status: Active Member Role Status Dates Blu Velez DO Primary Care Provider Active Start: September 23, 2024 Vijay Rivera ProviderActiveStart: September 23, 2024 Team Status: Active Member Role Status Dates Blu Velez DO Primary Care Provider Active Start: September 23, 2024 Lazara Hassan ProviderActiveStart: September 23, 2024 Team Status: Inactive Member Role Status Dates Blu Velez DO Primary Care Provider Active Start: December 09, 2024 End: December 09coy Velez DOAttending ProviderActiveStart: December 09, 2024 End: December 09, 2024 Team Status: Inactive Member Role [...] Start: May 02, 2024 End: May 02, 2024Teo Johnson , MDAttending ProviderActiveStart: May 02, 2024 End: May 02, 2024 Team Status: Inactive Member Role Status Nivia Velez DO Primary Care Provider Active Start: September 12, 2023 End: September 11olman Jacob II, MDAttending ProviderActiveStart: September 12, 2023 End: September 12, 2023 [...] Start: May 10, 2023 End: May 10, 2023Team MemberRelationshipSpecialtyStart DateEnd Blu Mantilla DO [address] [place] [address] PCP - General11/09/22Team MemberRelationshipSpecialtyStart DateEnd Date Blu Velez DO PCP - General11/09/22 Team Status: Inactive Member Role Status Dates Blu Velez DO Attending Provider Active Sta rt: February 08, 2023 End: February 08, 2023 Team Status: Active Member Role Status Dates Blu Velez DO Primary Care Provider Active Start: July 17, 2023 Sridevi Holguin RMAAttendestiny ProviderActiveStart: July 17, 2023 Team Status: Inactive Member Role Status Dates Blu Velez DO Primary Care Provide r, Attending Provider Active Start: August 10, 2023 End: August 10, 2023 Team Status: Active Member Role Status Dates Blu Velez DO Primary Care Provider Active Start: September 12, 2023 Yogesh Jacob II, MDAttending ProviderActiveStart: September 12, 2023 Team MemberRelationshipSpecialtyStart DateEnd Date Blu Velez MD [address] [place] [id number] PCP - GeneralInternal Medicine03/01/23Team MemberRelationshipSpecialtyStart Date End Date Blu Velez MD [address] [place] [id number] PCP - GeneralInternal Medicine03/01/23 Team Status: Inactive Member Role Status Dates Blu Velez DO Primary Care Provide r, Attending Provider Active Start: December 19, 2023 End: December 19, 2023Team MemberRelationshipSpecialtyStart DateEnd Date Blu Velez MD [address] [place] [id number] PCP - GeneralInternal Medicine03/01/23Team MemberRelationshipSpecialtyStart Date End Date Blu Velez MD [address] [facility]], [place] [phone] PCP - GeneralInternal Medicine03/01/23Team MemberRelationshipSpecialtyStart Date End Date Blu Velez DO [address] [place] [address] PCP - GeneralInternal Medicine03/26/24Team MemberRelationshipSpecialtyStart Date End Date Blu Velez DO [address] [place] [address] PCP - GeneralInternal Medicine03/26/24Team MemberRelationshipSpecialtyStart Date End Date Blu Velez DO [address] [place] [address] PCP - GeneralInternal Medicine03/26/24 Team Status: Inactive Member Role Status Dates Blu Velez DO Primary Care Provider Active Start: May 05, 2024 End: May 05, 2024Vijay Rivera ProviderActiveStart: May 05, 2024 End: May 05, 2024Team MemberRelationshipSpecialtyStart DateEnd Date Blu Velez DO [address] [place] [address] PCP - GeneralInternal Medicine03/26/24Team MemberRelationshipSpecialtyStart Date End Date Blu Velez DO [address] [facility]], [place] [phone] PCP - GeneralInternal Medicine03/01/23Team MemberRelationshipSpecialtyStart Date End Date Blu Velez DO [address] [facility]], [place] [address] PCP - GeneralInternal Medicine03/01/23Team MemberRelationshipSpecialtyStart Date End Date Blu Velez DO [address] [facility]], [place] [phone] PCP - GeneralInternal Medicine03/01/23Team MemberRelationshipSpecialtyStart Date End Date Blu Velez DO [address] [facility]], [place] [address] PCP - GeneralInternal Medicine03/01/23Team MemberRelationshipSpecialtyStart Date End Date Blu Velez DO [address] [facility]], [place] [phone] PCP - GeneralInternal Medicine03/01/23Team MemberRelationshipSpecialtyStart Date End Date Blu Velez DO [address] [facility]], [place] [address] PCP - GeneralInternal Medicine03/01/23Team MemberRelationshipSpecialtyStart Date End Date Blu Velez DO [address] [facility]], [place] [address] PCP - GeneralInternal Medicine03/01/23 Team Status: Active Member Role/Relationship Status Dates Blu Velez DO Primary Care Provider Active Team Status: Active Member Role/Relationship Status Dates Blu Velez DO Primary Care Provider Active Start: September 23, 2024 Teo Johnson MDAttending ProviderActiveStart: September 23, 2024 Team Status: Active Member Role/Relationship Status Dates Blu Velez DO Primary Care Provider Active Start: September 23, 2024 Lazara Hassan ProviderActiveStart: September 23, 2024 Team Status: Inactive Member Role/Relationship Status Dates Blu Velez DO Primary Care Provider Active Start: December 09, 2024 End: December 09pacoLazara Mendes ProviderActiveStart: December 09, 2024 End: December 09, 2024 Team Status: Inactive Member Role/Relationship Status Dates Blu Velez DO Primary Care Provider Active Start: December 22, 2024 End: December 22pacoLazara Mendes ProviderActiveStart: December 22, 2024 End: December 22, 2024 Goals (unrecognized section and content) Goals may [...] BE BASED ON THE PRIMARY CLINICAL RECORDS. [employer] provides no warranty or guarantee of the accuracy or completeness of information in this document.
== END 2024-12-24 11:27 | disposition home or self-care (01) ==
LOC: FHNEUROLOG 11:26
PROVIDERS: PCP Internal Medicine; Visit Provider Psychiatry & Neurology Neurology
DX: G47.33 Obstructive sleep apnea (adult) (pediatric) (principal); G47.10 Hypersomnia, unspecified; R06.83 Snoring
CPT/HCPCS: G0463

== ENCOUNTER 2025-02-09 09:53 | Outpatient (OUT) | payer MEDICARE, SELFPAY ==
[2025-02-09 10:22] LABS: Hematocrit 41.4 % (42.0-54.0); Hemoglobin 14.2 g/dL (14.0-18.0); Immature Granulocytes Abs Auto 0.02 10^3/uL (0.00-0.03); Immature Granulocytes Pct Auto 0.3 % (0.0-0.5); Lymphocytes Absolute Auto 1.5 10^3/uL (1.2-3.8); Mean Corpuscular HGB Conc 34.3 g/dL (29.9-35.2); Mean Corpuscular Hemoglobin 32.6 pg (25.9-34.0); Mean Corpuscular Volume 95.2 fL (80.0-94.0); Platelet Count 127 10^3/uL (150-450); Red Blood Count 4.35 10^6/uL (4.70-6.10); White Blood Count 5.8 10^3/uL (4.0-11.0)
[2025-02-09 10:49] LABS: Alanine Aminotransferase 27 U/L (16-63); Albumin Globulin Ratio 1.2; Albumin Level 3.7 g/dL (3.4-5.0); Alkaline Phosphatase 71 U/L (46-116); Anion Gap 10.7; Aspartate Amino Transferase 21 U/L (15-37); Blood Urea Nitrogen 14.0 mg/dL (7.0-18.0); Calcium 9.1 mg/dL (8.5-10.1); Carbon Dioxide 30.2 mmol/L (21.0-32.0); Chloride 105 mmol/L (98-107); Cholesterol 182 mg/dL (<=200); Estimated GFR (African America >60 (>=60 mL/min/1.73m^2); Estimated GFR (Non-African Ame >60 (>=60 mL/min/1.73m^2); Globulin 3.2 g/dL; Glucose 105 mg/dL (74-106); HDL Cholesterol 55 mg/dL (40-60); Potassium 4.9 mmol/L (3.5-5.1); Sodium 141 mmol/L (136-145); Total Protein 6.9 g/dL (6.4-8.2); Triglycerides 138 mg/dL (<=150); VLDL CHOLESTEROL 27.6 mg/dL
== END 2025-02-09 09:54 | disposition home or self-care (01) ==
LOC: LAB 09:54
PROVIDERS: PCP Internal Medicine; Visit Provider Internal Medicine
DX: I67.2 Cerebral atherosclerosis (principal); Z12.5 Encounter for screening for malignant neoplasm of prostate; E78.00 Pure hypercholesterolemia, unspecified; I10 Essential (primary) hypertension
CPT/HCPCS: 36415; 80053; 80061; 85025; G0103